=== PATIENT | female | born 1970 | race Caucasian/White ===

== ENCOUNTER 2023-03-22 11:48 | Outpatient (OUT) | payer BC, SELFPAY ==
--- NOTE | 2023-03-22 | MM_ITS ---
Patient: MONET ORTEGA Exam Date: 03/22/2023 : 1970 Gender:F Ordering : TONI Shandrakathya Romero [employer] Admission #: [id number] Family : Order #: [id number] CLICK HERE TO VIEW EXAM RADIOLOGY REPORT PROCEDURE: MM TOMOSYNTHESIS SCREENING BI COMPARISON: MG MAMM SCREEN 3D [place] CAD, 07/20/2021. MG MAMM RT DIAG FU, 08/16/2021. INDICATIONS: Z12.31 Calculator Name NCI Breast Cancer Risk Assessment Tool 5 Year Breast Cancer Risk 0.90% Lifetime Breast Cancer Risk 8.00% Personal Breast Cancer No Personal Ovarian Cancer No Treatments None Family Cancers Mother with cervical cancer at age 50; Daughter with cervical cancer at age 24; Daughter with cervical cancer at age 27. LOCATION: The [facility] BREAST COMPOSITION: Scattered areas fibroglandular density. FINDINGS: DIAGNOSTIC CATEGORY 2--BENIGN FINDING. NO CHANGE FROM COMPARISON. Scattered benign-appearing nodules are present. Scattered benign-appearing calcifications are present. Scattered benign-appearing lymph nodes are present. RIGHT BREAST: No significant suspicious finding. LEFT BREAST: No significant suspicious finding. RECOMMENDATIONS: ROUTINE MAMMOGRAM AND CLINICAL EVALUATION IN 12 MONTHS. PLEASE NOTE: A NORMAL MAMMOGRAM DOES NOT EXCLUDE THE POSSIBILITY OF BREAST CANCER. A CLINICALLY SUSPICIOUS PALPABLE LUMP SHOULD BE BIOPSIED. Dictated by: Diego Mcdonald MD on 03/23/2023 at 08:00 Approved by: Diego Mcdonald MD on 03/23/2023 at 08:01
[2023-03-22 12:53] LABS: Cholesterol 183 mg/dL (<=200); HDL Cholesterol 60 mg/dL (40-60); LDL Cholesterol Calculated 101.8 mg/dL; Triglycerides 106 mg/dL (<=150); VLDL CHOLESTEROL 21.2 mg/dL
== END 2023-03-22 11:49 | disposition home or self-care (01) ==
LOC: MAMMO 11:48
PROVIDERS: PCP Nurse Practitioner; Visit Provider Nurse Practitioner
DX: Z12.31 Encounter for screening mammogram for malignant neoplasm of breast (principal); Z80.49 Family history of malignant neoplasm of other genital organs
CPT/HCPCS: 36415; 77063; 77067; 80061

== ENCOUNTER 2023-03-22 11:52 | Outpatient (OUT) | payer BC, SELFPAY ==
[2023-03-22 12:33] LABS: Basophils Absolute Auto 0.1 10^3/uL (0.0-0.1); Basophils Percent Auto 0.7 % (0.2-2.0); Eosinophils Absolute Auto 0.2 10^3/uL (0.0-0.7); Eosinophils Percent Auto 3.1 % (0.9-7.0); Hematocrit 37.6 % (36.0-48.0); Hemoglobin 12.3 g/dL (12.0-16.0); Immature Granulocytes Abs Auto 0.03 10^3/uL (0.00-0.03); Immature Granulocytes Pct Auto 0.4 % (0.0-0.5); Lymphocytes Absolute Auto 2.1 10^3/uL (1.2-3.8); Lymphocytes Percent Auto 28.3 % (20.5-60.0); Mean Corpuscular HGB Conc 32.7 g/dL (29.9-35.2); Mean Corpuscular Hemoglobin 29.1 pg (26.7-34.0); Mean Corpuscular Volume 89.1 fL (81.0-99.0); Monocytes Absolute Auto 0.6 10^3/uL (0.3-0.8); Monocytes Percent Auto 8.4 % (1.7-12.0); Neutrophils Absolute Auto 4.4 10^3/uL (1.4-6.5); Neutrophils Percent Auto 59.1 % (43.0-75.0); Platelet Count 351 10^3/uL (150-450); Red Blood Count 4.22 10^6/uL (4.20-5.40); Red Cell Distribution Width 14.5 % (11.0-15.0); White Blood Count 7.4 10^3/uL (4.0-11.0)
[2023-03-22 12:51] LABS: Alanine Aminotransferase 22 U/L (14-59); Albumin Globulin Ratio 0.9; Albumin Level 3.5 g/dL (3.4-5.0); Alkaline Phosphatase 92 U/L (46-116); Anion Gap 14.4; Aspartate Amino Transferase 17 U/L (15-37); Bilirubin Total 0.3 mg/dL (0.2-1.0); Carbon Dioxide 27.2 mmol/L (21.0-32.0); Chloride 104 mmol/L (98-107); Estimated GFR (African America >60 (>=60); Estimated GFR (Non-African Ame >60 (>=60); Globulin 3.9 g/dL; Glucose 88 mg/dL (74-106); Potassium 3.6 mmol/L (3.5-5.1); Sodium 142 mmol/L (136-145); Total Protein 7.4 g/dL (6.4-8.2)
[2023-03-22 12:56] LABS: Erythrocyte Sedimentation Rate 59 mm/hr (<=30)
== END 2023-03-22 11:53 | disposition home or self-care (01) ==
LOC: LAB 11:53
PROVIDERS: PCP Nurse Practitioner
DX: M15.0 Primary generalized (osteo)arthritis (principal); M05.79 Rheumatoid arthritis with rheumatoid factor of multiple 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; Z79.899 Other long term (current) drug therapy
CPT/HCPCS: 36415; 80053; 85025; 85652

== ENCOUNTER 2023-03-22 13:16 | Outpatient (OUT) | payer BC, SELFPAY ==
--- NOTE | 2023-03-22 | CT_ITS ---
The [address] [address] Patient Name: MONET ORTEGA MRN: [id number] date: 1970 Sex: F Assigned Patient Location: CT Current Patient Location: [facility] Accession/Order Number: [id number] Exam Date: 03/22/2023 13:58 Report Date: 03/22/2023 21:05 At the request of: ANGELA ADAMS Procedure: CT chest wo con EXAM: CT scan of the chest without contrast. Dose reduction technique used: Automated exposure control and/or adjustment of the mA and/or kV according to patient size and/or use of iterative reconstruction technique. REASON FOR EXAM: R91.8, cough and dyspnea COMPARISON: CT scan dated 02/25/2022 FINDINGS: No acute airspace opacities. No pneumothorax. No pleural effusion. No acute fractures. No concerning pulmonary nodules. No definite lymphadenopathy in the chest. Small pericardial effusion. Multiple small nodules along the right fissures compatible with pleural lymph nodes. Remainder unremarkable. CT/CT chest wo con IMPRESSION: No acute abnormalities in chest. Electronically authenticated by: IAIN MAYA Date: 03/22/2023 21:05
== END 2023-03-22 13:17 | disposition home or self-care (01) ==
LOC: CT 13:16
PROVIDERS: PCP Nurse Practitioner; Visit Provider Internal Medicine
DX: Z12.31 Encounter for screening mammogram for malignant neoplasm of breast (principal); Z80.49 Family history of malignant neoplasm of other genital organs; M15.0 Primary generalized (osteo)arthritis; Z79.899 Other long term (current) drug therapy; M05.79 Rheumatoid arthritis with rheumatoid factor of multiple 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; R91.8 Other nonspecific abnormal finding of lung field
CPT/HCPCS: 36415; 71250; 77063; 77067; 80053; 80061; 85025; 85652

== ENCOUNTER 2023-08-23 06:32 | Outpatient (OUT) | payer BC, SELFPAY ==
[2023-08-23 06:57] LABS: Basophils Percent Auto 0.5 % (0.2-2.0); Eosinophils Absolute Auto 0.2 10^3/uL (0.0-0.7); Eosinophils Percent Auto 1.8 % (0.9-7.0); Hematocrit 37.7 % (36.0-48.0); Hemoglobin 12.1 g/dL (12.0-16.0); Immature Granulocytes Abs Auto 0.01 10^3/uL (0.00-0.03); Immature Granulocytes Pct Auto 0.1 % (0.0-0.5); Lymphocytes Absolute Auto 2.4 10^3/uL (1.2-3.8); Lymphocytes Percent Auto 27.7 % (20.5-60.0); Mean Corpuscular HGB Conc 32.1 g/dL (29.9-35.2); Mean Corpuscular Hemoglobin 28.3 pg (26.7-34.0); Mean Corpuscular Volume 88.1 fL (81.0-99.0); Mean Platelet Volume 8.8 fL (9.5-13.5); Monocytes Absolute Auto 0.7 10^3/uL (0.3-0.8); Monocytes Percent Auto 7.8 % (1.7-12.0); Neutrophils Absolute Auto 5.4 10^3/uL (1.4-6.5); Neutrophils Percent Auto 62.1 % (43.0-75.0); Platelet Count 448 10^3/uL (150-450); Red Blood Count 4.28 10^6/uL (4.20-5.40); Red Cell Distribution Width 14.2 % (11.0-15.0); White Blood Count 8.8 10^3/uL (4.0-11.0)
[2023-08-23 07:13] LABS: Erythrocyte Sedimentation Rate 78 mm/hr (<=30)
[2023-08-23 07:14] LABS: Alanine Aminotransferase 56 U/L (14-59); Albumin Globulin Ratio 0.9; Albumin Level 3.7 g/dL (3.4-5.0); Alkaline Phosphatase 95 U/L (46-116); Anion Gap 12.1; Aspartate Amino Transferase 25 U/L (15-37); BUN Creatinine Ratio 15.4; Bilirubin Total 0.3 mg/dL (0.2-1.0); Chloride 102 mmol/L (98-107); Estimated GFR (African America >60 (>=60); Estimated GFR (Non-African Ame >60 (>=60); Globulin 4.3 g/dL; Glucose 91 mg/dL (74-106); Potassium 3.1 mmol/L (3.5-5.1); Sodium 140 mmol/L (136-145)
== END 2023-08-23 06:33 | disposition home or self-care (01) ==
LOC: LAB 06:33
PROVIDERS: PCP Nurse Practitioner; Visit Provider Internal Medicine Rheumatology
DX: M05.79 Rheumatoid arthritis with rheumatoid factor of multiple 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 (principal); M15.0 Primary generalized (osteo)arthritis; Z79.899 Other long term (current) drug therapy
CPT/HCPCS: 36415; 80053; 85025; 85652

== ENCOUNTER 2024-02-02 21:24 | Emergency (ER) | payer BC, SELFPAY ==
[2024-02-02 21:29] VITALS: BP 121/83; PULSE 92; TEMP 36.9; O2SAT 99; BMI 32.5
--- OUTSIDE RECORDS SUMMARY | 2024-02-02 21:29 | XMS_ITS | CCD ---
Author Organization [facility] Care Team Providers Care Leaf Tinner Name Role Phone INGRIS ROMEROA J Primary Care Physician Cecy Chiang Unavailable AICHHOLZ, HOLTER TECHNICIAN SHANDRA Admitting Unavailable AICHHOLZ, HOLTER TECHNICIAN SHANDRA Attending Unavailable AICHHOLZ, HOLTER TECHNICIAN SHANDRA Primary Care Unavailable DR WEST OBANDO V Consulting Unavailable AICHHOLZ, HOLTER TECHNICIAN SHANDRA Consulting Unavailable MISC, DR IBARRA Admitting Unavailable MISC, DR IBARRA Attending Unavailable AICHHOLZ, HOLTER TECHNICIAN SHANDRA Primary Care Unavailable MISC, DR IBARRA Consulting Unavailable MISC, DR IBARRA Admitting Unavailable MISC, DR IBARRA Attending Unavailable AICHHOLZ, HOLTER TECHNICIAN SHANDRA Primary Care Unavailable AICHHOLZ, HOLTER TECHNICIAN SHANDRA Consulting Unavailable MISC, DR IBARRA Consulting Unavailable ZIEBRADHA, DR TODD Tai Consulting Unavailable AICHHOLZ, HOLTER TECHNICIAN SHANDRA Admitting Unavailable AICHHOLZ, HOLTER TECHNICIAN SHANDRA Attending Unavailable AICHHOLZ, HOLTER TECHNICIAN SHANDRA Primary Care Unavailable SAMSA ., ANGELA Admitting Unavailable SAMSA ., ANGELA Attending Unavailable AICHHOLZ, HOLTER TECHNICIAN SHANDRA Primary Care Unavailable MARIA ISABELEBDR TODD GARCIA Consulting Unavailable SAMSA ., ANGELA Consulting Unavailable AICHHOLZ, HOLTER TECHNICIAN SHANDRA Admitting Unavailable AICHHOLZ, HOLTER TECHNICIAN SHANDRA Attending Unavailable AICHHOLZ, HOLTER TECHNICIAN SHANDRA Primary Care Unavailable AICHHOLZ, HOLTER TECHNICIAN SHANDRA Consulting Unavailable AICHHOLZ, HOLTER TECHNICIAN SHANDRA Admitting Unavailable AICHHOLZ, HOLTER TECHNICIAN SHANDRA Attending Unavailable AICHHOLZ, HOLTER TECHNICIAN SHANDRA Primary Care Unavailable AICHHOLZ, HOLTER TECHNICIAN SHANDRA Consulting Unavailable AICHHOLZ, HOLTER TECHNICIAN SHANDRA Admitting Unavailable AICHHOLZ, HOLTER TECHNICIAN SHANDRA Attending Unavailable AICHHOLZ, HOLTER TECHNICIAN SHANDRA Primary Care Unavailable DR WEST OBANDO V Consulting Unavailable AICHHOLZ, HOLTER TECHNICIAN SHANDRA Consulting Unavailable Aichdebiz, Shandra J Primary Care Provider MD Cecil Taylor Attending Provider [phone] Kendra Woodall Admitting Unavailable Shandra Romero Primary Care Unavailable Kendra Woodall Attending Unavailable Cecil Taylor Attending Unavailable Cecil Taylor Admitting Unavailable Shandra Romero Primary Care Unavailable SHANDRA ROMERO Attending Unavailable SHANDRA ROMERO Attending Unavailable Medications Current Medications Medication Drug Class(es) Dates Sig (Normalized) Sig (Original) Albuterol (2 sources) beta2-Adrenergic Agonist Start: 09-15-2021 albuterol Refills(s) 0 Start Date: 09/15/21 Status: Ordered atorvastatin (2 sources) HMG-CoA Reductase Inhibitor Start: 09-15-2021 atorvastatin Oral, Daily, Refills(s) 0 Start Date: 09/15/21 Status: Ordered cephalexin 500 mg oral capsule (2 sources) Cephalosporin Antibacterial Start: 09-15-2021 take 1 capsule by mouth once daily Keflex 500 mg Cap 500 mg = 1 cap(s), Oral, Daily, Start 1 day prior to procedure, # 2 cap(s), Refills(s) 0, Pharmacy: [facility]/pharmacy #[id number], 170, cm, 09/15/21 8:33:00 EDT, Height/Length Dosing, 93.9, kg, 09/15/21 8:33:00 EDT, Weight Dosing Start Date: 09/15/21 Status: Ordered Estradiol (2 sources) Estrogen Start: 09-15-2021 Estrace 0.1 mg/g Cream See Instructions, 42.5 gm, Refill(s) 3, Apply pea sized amount 3x a week for 4 weeks and 2x a week after, [facility]/pharmacy #[id number], 170, cm, 09/15/21 8:33:00 EDT, Height/Length Dosing, 93.9, kg, 09/15/21 8:33:00 EDT, Weight Dosing Start Date: 09/15/21 Status: Ordered Etodolac (3 sources) Nonsteroidal Anti-inflammatory Drug Start: 09-15-2021 etodolac Oral, Refills(s) 0 Start Date: 09/15/21 Status: Ordered Etodolac Active fexofenadine (2 sources) Histamine-1 Receptor Antagonist Start: 09-15-2021 Ashley Oral, Refills(s) 0 Start Date: 09/15/21 Status: Ordered fluticasone / vilanterol (1 source) Corticosteroid, beta2-Adrenergic Agonist Breo Ellipta Active folic acid 1 mg oral tablet (2 sources) Start: 09-15-2021 take 1 tablet by mouth once daily folic acid 1 mg Tab mg tab(s), Oral, Daily, Refills(s) 0 Start Date: 09/15/21 Status: Ordered Problems Active Problems Problem Classification Problem Date Documented Da te Episodic/Chronic Disorders of lipid metabolism (6 sources) Hyperlipidemia; Translations: [Hyperlipidemia, unspecified] Onset: 02-01-2022 09-15-2021 Chronic Genitourinary symptoms and ill-defined conditions (3 sources) Mixed incontinence; Translations: [Incontinence] Onset: 09-15-2021 Chronic Genitourinary symptoms and ill-defined conditions (2 sources) Microscopic hematuria; Translations: [Asymptomatic microscopic hematuria] Onset: 09-15-2021 Episodic Osteoarthritis (3 sources) Arthritis; Translations: [Primary generalized (osteo)arthritis] Onset: 06-15-2022 09-15-2021 Chronic Other screening for suspected conditions (not mental disorders or infectious disease) (8 sources) Other abnormal and inconclusive findings on diagnostic imaging of breast; Translations: [Encounter for screening, unspecified] Onset: 02-25-2022 Episodic Residual codes; unclassified (1 source) Family history of malignant neoplasm of genital structure; Translations: [Family history of malignant neoplasm of other genital organs] Onset: 09-15-2021 Episodic Residual codes; unclassified (2 sources) Family history of malignant neoplasm of cervix uteri 09-15-2021 Episodic Rheumatoid arthritis and related disease (4 sources) Rheumatoid arthritis with rheumatoid factor of multiple 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; Translations: [RA W/RH FACTOR MX SITE NO ORGAN/SYS] Onset: 06-07-2022 Chronic Substance-related disorders (3 sources) Nicotine dependence; Translations: [Nicotine dependence, unspecified, uncomplicated] Onset: 09-15-2021 Chronic Unclassified (2 sources) Asymptomatic microscopic hematuria 09-15-2021 Unclassified (1 source) Rheumatoid arthritis with rheumatoid factor of multiple 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; Translations: [Rheumatoid arthritis with rheumatoid factor of multiple 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] Onset: 12-06-2022 Past or Other Problems Problem Classification Problem Date Documented Da te Episodic/Chronic Immunizations and screening for infectious disease (1 source) Contact with and (suspected) exposure to other viral communicable diseases Onset: 04-14-2021 Resolved: 04-14-2021 Episodic Other lower respiratory disease (1 source) Other nonspecific abnormal finding of lung field; Translations: [OTH NONSPECIFIC ABN FIND LNG FIELD] Onset: 02-28-2022 Episodic Other lower respiratory disease (4 sources) Solitary pulmonary nodule; Translations: [SOLITARY PULMONARY NODULE] Onset: 09-06-2021 Episodic Other non-traumatic joint disorders (1 source) Pain in right hip; Translations: [PAIN IN RIGHT HIP] Onset: 02-28-2022 Episodic Other upper respiratory infections (1 source) Acute upper respiratory infection, unspecified Onset: 04-14-2021 Resolved: 04-14-2021 Episodic Results Test Name Value Interpretation Reference Range Facility Alanine aminotransferase [En zymatic activity/volume] in Serum or PlasmaOrdered By: Yayo Taylor on 12-06-2022 ALT [Catalytic activity/Vol] 12 U/L 7-52 [facility] Albumin [Mass/volume] in Ser um or Plasma by Bromocresol green (BCG) dye binding methoOrdered By: Yayo Taylor on 12-06-2022 Albumin BCG dye [Mass/Vol] 4.6 g/dL 3.5-5.7 [facility] Alkaline phosphatase [Enzyma tic activity/volume] in Serum or PlasmaOrdered By: Yayo Taylor on 12-06-2022 ALP [Catalytic activity/Vol] 79 U/L 34-104 [facility] Aspartate aminotransferase [ Enzymatic activity/volume] in Serum or PlasmaOrdered By: Yayo Taylor on 12-06-2022 AST [Catalytic activity/Vol] 15 U/L 13-39 [facility] Basophils Auto (Bld) [#/Vol] Ordered By: Yayo Taylor on 12-06-2022 Basophils (Bld) [#/Vol] 0.0 10*3/uL 0.0-0.2 [facility] Basophils/100 WBC Auto (Bld) Ordered By: Yayo Taylor on 12-06-2022 Basophils/100 WBC (Bld) 0.6 % . [facility] Bilirubin.total [Mass/volume ] in Serum or PlasmaOrdered By: Yayo Taylor on 12-06-2022 Bilirubin [Mass/Vol] 0.3 mg/dL 0.3-1.0 [facility] Calcium [Mass/volume] in Ser um or PlasmaOrdered By: Yayo Taylor on 12-06-2022 Calcium [Mass/Vol] 9.6 mg/dL 8.6-10.3 [facility] Carbon dioxide, total [Moles /volume] in Serum or PlasmaOrdered By: Yayo Taylor on 12-06-2022 CO2 [Moles/Vol] 29.0 mmol/L 21.0-31.0 [facility] Chloride [Moles/volume] in S dot or PlasmaOrdered By: Yayo Taylor on 12-06-2022 Chloride [Moles/Vol] 105 mmol/L 98-107 [facility] Complete Blood Count Auto Di ffon 12-06-2022 Basophils (Bld) [#/Vol] 0.0 10*3/uL Normal 0.0-0.2 [facility] Comment on above: Performed By: #### C BC, CMP, ESR #### [facility] [address] Basophils/100 WBC (Bld) 0.6 % Normal . [facility] Comment on above: Performed By: #### C BC, CMP, ESR #### [facility] [address] [place] [id number] [place] Eosinophils (Bld) [#/Vol] 0.2 10*3/uL Normal 0.0-0.45 [facility] Comment on above: Performed By: #### C BC, CMP, ESR #### [facility] [address] [place] [id number] [place] Eosinophils/100 WBC (Bld) 2.7 % Normal . [facility] Comment on above: Performed By: #### C BC, CMP, ESR #### [facility] [address] [place] [address] [place] Erythrocyte distribution width (RBC) [Ratio] 14.2 % Normal 11.9-15.3 [facility] Comment on above: Performed By: #### C BC, CMP, ESR #### [address] Hematocrit (Bld) [Volume fraction] 38.4 % Normal 34.0-46.4 [facility] Comment on above: Performed By: #### C BC, CMP, ESR #### [address] Hemoglobin (Bld) [Mass/Vol] 12.7 g/dL Normal 11.8-15.4 [facility] Comment on above: Performed By: #### C BC, CMP, ESR #### [address] Lymphocytes (Bld) [#/Vol] 2.4 10*3/uL Normal 1.00-4.8 [facility] Comment on above: Performed By: #### C BC, CMP, ESR #### [address] Lymphocytes/100 WBC (Bld) 32.4 % Normal . [facility] Comment on above: Performed By: #### C BC, CMP, ESR #### [address] MCH (RBC) [Entitic mass] 28.5 pg Normal 24.7-34.3 [facility] Comment on above: Performed By: #### C BC, CMP, ESR #### [address] MCV (RBC) [Entitic vol] 86.3 fL Normal 80-100 [facility] Comment on above: Performed By: #### C BC, CMP, ESR #### [address] Mean Corpuscular HGB Conc 33.0 g/dL Normal 32.0-35.0 [facility] Comment on above: Performed By: #### C BC, CMP, ESR #### [address] Monocytes (Bld) [#/Vol] 0.5 10*3/uL Normal 0.0-0.8 [facility] Comment on above: Performed By: #### C BC, CMP, ESR #### [facility] [address] [place] [address] [place] Monocytes/100 WBC (Bld) 6.3 % Normal . [facility] Comment on above: Performed By: #### C BC, CMP, ESR #### [facility] [address] Neutrophils (Bld) [#/Vol] 4.3 10*3/uL Normal 1.8-7.7 [facility] Comment on above: Performed By: #### C BC, CMP, ESR #### [facility] [address] Neutrophils/100 WBC (Bld) 58.0 % Normal . [facility] Comment on above: Performed By: #### C BC, CMP, ESR #### [facility] [address] NRBC% 0.0 /100{WBC} Normal 0-0.5 [facility] Comment on above: Performed By: #### C BC, CMP, ESR #### [facility] [address] Platelet mean volume (Bld) [Entitic vol] 7.6 fL Normal 6.3-10.7 [facility] Comment on above: Performed By: #### C BC, CMP, ESR #### [facility] [address] [place] [address] [place] Platelets (Bld) [#/Vol] 368 10*3/uL Normal 150-450 [facility] Comment on above: Performed By: #### C BC, CMP, ESR #### [facility] [address] [place] [address] [place] RBC (Bld) [#/Vol] 4.45 10*6/uL Normal 3.60-5.00 [facility] Comment on above: Performed By: #### C BC, CMP, ESR #### [facility] [address] WBC (Bld) [#/Vol] 7.4 10*3/uL Normal 3.8-11.6 [facility] Comment on above: Performed By: #### C BC, CMP, ESR #### [address] Comprehensive Metabolic Pane nico 12-06-2022 Albumin [Mass/Vol] 4.6 g/dL Normal 3.5-5.7 [facility] Comment on above: Performed By: #### C BC, CMP, ESR #### [facility] [address] Albumin/Globulin [Mass ratio] 1.9 {ratio} Normal [facility] Comment on above: Performed By: #### C BC, CMP, ESR #### [address] ALP [Catalytic activity/Vol] 79 U/L Normal 34-104 [facility] Comment on above: Result Comment: PERF ORMED BY: [place] [address] PATHOLOGIST [employer]ASS PROCESSING WORKER FELICIANO PIERCE M.D. Performed By: #### C BC, CMP, ESR #### [address] ALT [Catalytic activity/Vol] 12 U/L Normal 7-52 [facility] Comment on above: Performed By: #### C BC, CMP, ESR #### [address] Anion gap [Moles/Vol] 10.1 mmol/L Normal 6.0-15.0 [facility] Comment on above: Performed By: #### C BC, CMP, ESR #### [address] AST [Catalytic activity/Vol] 15 U/L Normal 13-39 [facility] Comment on above: Performed By: #### C BC, CMP, ESR #### [facility] [address] Bilirubin [Mass/Vol] 0.3 mg/dL Normal 0.3-1.0 [facility] Comment on above: Performed By: #### C SANTINO GALLAGHER, ESR #### [facility] [address] Calcium [Mass/Vol] 9.6 mg/dL Normal 8.6-10.3 [facility] Comment on above: Performed By: #### C ELLIOTT CMP, ESR #### [facility] [address] Chloride [Moles/Vol] 105 mmol/L Normal 98-107 [facility] Comment on above: Performed By: #### C ELLIOTT CMP, ESR #### [facility] [address] CO2 [Moles/Vol] 29.0 mmol/L Normal 21.0-31.0 [facility] Comment on above: Performed By: #### C ELLIOTT CMP, ESR #### [facility] [address] Creatinine [Mass/Vol] 0.89 mg/dL Normal 0.60-1.20 [facility] Comment on above: Performed By: #### C SANTINO GALLAGHER, ESR #### [facility] [address] [place] [address] [place] GFR/1.73 sq M.predicted MDRD (S/P/Bld) [Vol rate/Area] mL/min/{1.73_m2} [facility] Comment on above: Performed By: #### C ELLIOTT CMP, ESR #### [facility] [address] [place] [address] [place] Globulin (S) [Mass/Vol] 2.4 g/dL Normal [facility] Comment on above: Performed By: #### C ELLIOTT CMP, ESR #### [facility] [address] [place] [address] [place] Glucose [Mass/Vol] 83 mg/dL Normal 70-100 [facility] Comment on above: Result Comment: [facility] Glucose Reference Range is dependent on time and content of last meal. Glucose of more than 200 mg/dL in a nonstressed, ambulatory subject supports the diagnosis of Diabetes Mellitus. ADA recommended reference range Performed By: #### C BC, CMP, ESR #### [facility] [address] Potassium [Moles/Vol] 4.1 mmol/L Normal 3.5-5.1 [facility] Comment on above: Performed By: #### C BC, CMP, ESR #### [facility] [address] Protein [Mass/Vol] 7.0 g/dL Normal 6.4-8.9 [facility] Comment on above: Performed By: #### C BC, CMP, ESR #### [facility] [address] Sodium [Moles/Vol] 140 mmol/L Normal 136-145 [facility] Comment on above: Performed By: #### C BC, CMP, ESR #### [facility] [address] [place] [address] [place] Urea nitrogen [Mass/Vol] 15 mg/dL Normal 7-25 [facility] Comment on above: Performed By: #### C BC, CMP, ESR #### [facility] [address] Creatinine [Mass/volume] in Serum or PlasmaOrdered By: Yayo Taylor on 12-06-2022 Creatinine [Mass/Vol] 0.89 mg/dL 0.60-1.20 [facility] Eosinophils Auto (Bld) [#/Vo l]Ordered By: Yayo Taylor on 12-06-2022 Eosinophils (Bld) [#/Vol] 0.2 10*3/uL 0.0-0.45 [facility] Eosinophils/100 WBC Auto (Bl d)Ordered By: Yayo Taylor on 12-06-2022 Eosinophils/100 WBC (Bld) 2.7 % . [facility] Erythrocyte Sedimentation Ra cristela 12-06-2022 ESR (Bld) [Velocity] 27 mm/h Normal 0-29 [facility] Comment on above: Result Comment: PERF ORMED BY: [facility] [address] [place] [address] PATHOLOGIST [employer] PROCESSING WORKER FELICIANO PIERCE M.D. Performed By: #### C BC, CMP, ESR #### [facility] [address] Erythrocyte distribution wid th Auto (RBC) [Ratio]Ordered By: Yayo Taylor on 12-06-2022 Erythrocyte distribution width (RBC) [Ratio] 14.2 % 11.9-15.3 [facility] Erythrocyte sedimentation ra te by Photometric methodOrdered By: Yayo Taylor on 12-06-2022 ESR Photometric method (Bld) [Velocity] 27 mm/hr 0-29 [facility] Globulin Calc (S) [Mass/Vol] Ordered By: Yayo Taylor on 12-06-2022 Globulin (S) [Mass/Vol] 2.4 g/dL [facility] Glucose [Mass/volume] in Ser um or PlasmaOrdered By: Yayo Taylor on 12-06-2022 Glucose [Mass/Vol] 83 mg/dL 70-100 [facility] Comment on above: ADA recommended refe rence rangeRandom Glucose Reference Range is dependent on time and content of last meal. Glucose of more than 200 mg/dL in a nonstressed, ambulatory subject supports the diagnosis of Diabetes Mellitus. Hematocrit Auto (Bld) [Volum e fraction]Ordered By: Yayo Taylor on 12-06-2022 Hematocrit (Bld) [Volume fraction] 38.4 % 34.0-46.4 [facility] Hemoglobin [Mass/volume] in BloodOrdered By: Yayo Taylor on 12-06-2022 Hemoglobin (Bld) [Mass/Vol] 12.7 g/dL 11.8-15.4 [facility] Leukocytes [#/volume] correc jin for nucleated erythrocytes in Blood by Automated counOrdered By: Yayo Taylor on 12-06-2022 WBC corrected for nucl RBC Auto (Bld) [#/Vol] 7.4 10*3/uL 3.8-11.6 [facility] Lymphocytes Auto (Bld) [#/Vo l]Ordered By: Yayo Taylor on 12-06-2022 Lymphocytes (Bld) [#/Vol] 2.4 10*3/uL 1.00-4.8 [facility] Lymphocytes/100 WBC Auto (Bl d)Ordered By: Yayo Taylor on 12-06-2022 Lymphocytes/100 WBC (Bld) 32.4 % . [facility] MCH Auto (RBC) [Entitic mass ]Ordered By: Yayo Taylor on 12-06-2022 MCH (RBC) [Entitic mass] 28.5 pg 24.7-34.3 [facility] MCHC Auto (RBC) [Mass/Vol]Or dered By: Yayo Taylor on 12-06-2022 MCHC (RBC) [Mass/Vol] 33.0 g/dL 32.0-35.[address] [facility] MCV Auto (RBC) [Entitic vol] Ordered By: Yayo Taylor on 12-06-2022 MCV (RBC) [Entitic vol] 86.3 fL 80-100 [facility] Monocytes Auto (Bld) [#/Vol] Ordered By: Yayo Taylor on 12-06-2022 Monocytes (Bld) [#/Vol] 0.5 10*3/uL 0.0-0.8 [facility] Monocytes/100 WBC Auto (Bld) Ordered By: Yayo Taylor on 12-06-2022 Monocytes/100 WBC (Bld) 6.3 % . [facility] Neutrophils Auto (Bld) [#/Vo l]Ordered By: Yayo Taylor on 12-06-2022 Neutrophils (Bld) [#/Vol] 4.3 10*3/uL 1.8-7.7 [facility] Neutrophils/100 WBC Auto (Bl d)Ordered By: Yayo Taylor on 12-06-2022 Neutrophils/100 WBC (Bld) 58.0 % . [facility] No Panel InformationOrdered By: Yayo Taylor on 12-06-2022 Estimated GFR (CKD-EPI) > 60.0 mL/Min [facility] Creatinine Clearance (Chem N/A [facility] Nucleated erythrocytes [Pres ence] in Blood by Automated countOrdered By: Yayo Taylor on 12-06-2022 Nucleated RBC Auto Ql (Bld) 0.0 /100{WBC} 0-0.5 [facility] Platelet mean volume Auto (B ld) [Entitic vol]Ordered By: Yayo Taylor on 12-06-2022 Platelet mean volume (Bld) [Entitic vol] 7.6 fL 6.3-10.7 [facility] Platelets Auto (Bld) [#/Vol] Ordered By: Yayo Taylor on 12-06-2022 Platelets (Bld) [#/Vol] 368 10*3/uL 150-450 [facility] Potassium [Moles/volume] in Serum or PlasmaOrdered By: Yayo Taylor on 12-06-2022 Potassium [Moles/Vol] 4.1 mmol/L 3.5-5.1 [facility] Protein [Mass/volume] in Ser um or PlasmaOrdered By: Yayo Taylor on 12-06-2022 Protein [Mass/Vol] 7.0 g/dL 6.4-8.9 [facility] RBC Auto (Bld) [#/Vol]Ordere d By: Yayo Taylor on 12-06-2022 RBC (Bld) [#/Vol] 4.45 10*6/uL 3.60-5.00 [facility] Serum or plasma albumin/glob ulin mass ratioOrdered By: Yayo Taylor on 12-06-2022 Albumin/Globulin [Mass ratio] 1.9 {ratio} [facility] Serum or plasma anion gap de terminationOrdered By: Yayo Taylor on 12-06-2022 Anion gap [Moles/Vol] 10.1 mmol/L 6.0-15.0 [facility] Sodium [Moles/volume] in Ser um or PlasmaOrdered By: Yayo Taylor on 12-06-2022 Sodium [Moles/Vol] 140 mmol/L 136-145 [facility] Urea nitrogen [Mass/volume] in Serum or PlasmaOrdered By: Yayo Taylor on 12-06-2022 Urea nitrogen [Mass/Vol] 15 mg/dL 7-25 [facility] WBC Auto (Bld) [#/Vol]Ordere d By: Yayo Taylor on 12-06-2022 WBC (Bld) [#/Vol] 7.4 10*3/uL 3.8-11.6 [facility] Alanine aminotransferase [En zymatic activity/volume] in Serum or PlasmaOrdered By: Yayo Taylor on 10-03-2022 ALT [Catalytic activity/Vol] 11 U/L 7-52 [facility] Albumin [Mass/volume] in Ser um or Plasma by Bromocresol green (BCG) dye binding methoOrdered By: Yayo Taylor on 10-03-2022 Albumin BCG dye [Mass/Vol] 4.1 g/dL 3.5-5.7 [facility] Alkaline phosphatase [Enzyma tic activity/volume] in Serum or PlasmaOrdered By: Yayo Taylor on 10-03-2022 ALP [Catalytic activity/Vol] 84 U/L 34-104 [facility] Aspartate aminotransferase [ Enzymatic activity/volume] in Serum or PlasmaOrdered By: Yayo Taylor on 10-03-2022 AST [Catalytic activity/Vol] 16 U/L 13-39 [facility] Basophils Auto (Bld) [#/Vol] Ordered By: Yayo Taylor on 10-03-2022 Basophils (Bld) [#/Vol] 0.1 10*3/uL 0.0-0.2 [facility] Basophils/100 WBC Auto (Bld) Ordered By: Yayo Taylor on 10-03-2022 Basophils/100 WBC (Bld) 0.9 % . [facility] Bilirubin.total [Mass/volume ] in Serum or PlasmaOrdered By: Yayo Taylor on 10-03-2022 Bilirubin [Mass/Vol] 0.3 mg/dL 0.3-1.0 [facility] Calcium [Mass/volume] in Ser um or PlasmaOrdered By: Yayo Taylor on 10-03-2022 Calcium [Mass/Vol] 8.5 mg/dL 8.6-10.3 [facility] Carbon dioxide, total [Moles /volume] in Serum or PlasmaOrdered By: Yayo Taylor on 10-03-2022 CO2 [Moles/Vol] 27.2 mmol/L 21.0-31.0 [facility] Chloride [Moles/volume] in S dot or PlasmaOrdered By: Yayo Taylor on 10-03-2022 Chloride [Moles/Vol] 106 mmol/L 98-107 [facility] Complete Blood Count Auto Di ffon 10-03-2022 Basophils (Bld) [#/Vol] 0.1 10*3/uL Normal 0.0-0.2 [facility] Comment on above: Performed By: #### C BC, CMP, ESR #### [facility] [address] Basophils/100 WBC (Bld) 0.9 % Normal . [facility] Comment on above: Performed By: #### C BC, CMP, ESR #### [facility] [address] Eosinophils (Bld) [#/Vol] 0.4 10*3/uL Normal 0.0-0.45 [facility] Comment on above: Performed By: #### C BC, CMP, ESR #### [facility] [address] Eosinophils/100 WBC (Bld) 5.0 % Normal . [facility] Comment on above: Performed By: #### C BC, CMP, ESR #### [facility] [address] Erythrocyte distribution width (RBC) [Ratio] 14.7 % Normal 11.9-15.3 [facility] Comment on above: Performed By: #### C BC, CMP, ESR #### [facility] [address] Hematocrit (Bld) [Volume fraction] 36.3 % Normal 34.0-46.4 [facility] Comment on above: Performed By: #### C BC, CMP, ESR #### [facility] [address] Hemoglobin (Bld) [Mass/Vol] 12.3 g/dL Normal 11.8-15.4 [facility] Comment on above: Performed By: #### C BC, CMP, ESR #### [place] [address] [place] Lymphocytes (Bld) [#/Vol] 2.1 10*3/uL Normal 1.00-4.8 [facility] Comment on above: Performed By: #### C BC, CMP, ESR #### [facility] [address] [place] [address] [place] Lymphocytes/100 WBC (Bld) 29.3 % Normal . [facility] Comment on above: Performed By: #### C BC, CMP, ESR #### [facility] [address] [place] [address] [place] MCH (RBC) [Entitic mass] 29.4 pg Normal 24.7-34.3 [facility] Comment on above: Performed By: #### C BC, CMP, ESR #### [address] MCV (RBC) [Entitic vol] 86.4 fL Normal 80-100 [facility] Comment on above: Performed By: #### C BC, CMP, ESR #### [address] Mean Corpuscular HGB Conc 34.0 g/dL Normal 32.0-35.0 [facility] Comment on above: Performed By: #### C BC, CMP, ESR #### [place] [address] [place] Monocytes (Bld) [#/Vol] 0.5 10*3/uL Normal 0.0-0.8 [facility] Comment on above: Performed By: #### C BC, CMP, ESR #### [place] [address] [place] Monocytes/100 WBC (Bld) 7.3 % Normal . [facility] Comment on above: Performed By: #### C BC, CMP, ESR #### [place] [address] [place] Neutrophils (Bld) [#/Vol] 4.1 10*3/uL Normal 1.8-7.7 [facility] Comment on above: Performed By: #### C BC, CMP, ESR #### [facility] [address] Neutrophils/100 WBC (Bld) 57.5 % Normal . [facility] Comment on above: Performed By: #### C BC, CMP, ESR #### [facility] [address] NRBC% 0.3 /100{WBC} Normal 0-0.5 [facility] Comment on above: Performed By: #### C BC, CMP, ESR #### [facility] [address] Platelet mean volume (Bld) [Entitic vol] 7.9 fL Normal 6.3-10.7 [facility] Comment on above: Performed By: #### C BC, CMP, ESR #### [facility] [address] Platelets (Bld) [#/Vol] 369 10*3/uL Normal 150-450 [facility] Comment on above: Performed By: #### C BC, CMP, ESR #### [facility] [address] RBC (Bld) [#/Vol] 4.20 10*6/uL Normal 3.60-5.00 [facility] Comment on above: Performed By: #### C BC, CMP, ESR #### [facility] [address] WBC (Bld) [#/Vol] 7.1 10*3/uL Normal 3.8-11.6 [facility] Comment on above: Performed By: #### C BC, CMP, ESR #### [facility] [address] Comprehensive Metabolic Pane nico 10-03-2022 Albumin [Mass/Vol] 4.1 g/dL Normal 3.5-5.7 [facility] Comment on above: Performed By: #### C BC, CMP, ESR #### [facility] [address] Albumin/Globulin [Mass ratio] 1.6 {ratio} Normal [facility] Comment on above: Performed By: #### C BC, CMP, ESR #### [facility] [address] ALP [Catalytic activity/Vol] 84 U/L Normal 34-104 [facility] Comment on above: Result Comment: PERF ORMED BY: [place] [address] PATHOLOGIST [employer] FELICIANO PIERCE M.D. Performed By: #### C BC, CMP, ESR #### [facility] [address] ALT [Catalytic activity/Vol] 11 U/L Normal 7-52 [facility] Comment on above: Performed By: #### C BC, CMP, ESR #### [facility] [address] Anion gap [Moles/Vol] 10.7 mmol/L Normal 6.0-15.0 [facility] Comment on above: Performed By: #### C BC, CMP, ESR #### [facility] [address] AST [Catalytic activity/Vol] 16 U/L Normal 13-39 [facility] Comment on above: Performed By: #### C BC, CMP, ESR #### [facility] [address] Bilirubin [Mass/Vol] 0.3 mg/dL Normal 0.3-1.0 [facility] Comment on above: Performed By: #### C BC, CMP, ESR #### [facility] [address] Calcium [Mass/Vol] 8.5 mg/dL Low 8.6-10.3 [facility] Comment on above: Performed By: #### C BC, CMP, ESR #### [facility] [address] [place] [address] [place] Chloride [Moles/Vol] 106 mmol/L Normal 98-107 [facility] Comment on above: Performed By: #### C BC, CMP, ESR #### [facility] [address] [place] [address] [place] CO2 [Moles/Vol] 27.2 mmol/L Normal 21.0-31.0 [facility] Comment on above: Performed By: #### C BC CMP, ESR #### [facility] [address] [place] [id number] [place] Creatinine [Mass/Vol] 0.88 mg/dL Normal 0.60-1.20 [facility] Comment on above: Performed By: #### C BC, CMP, ESR #### [facility] [address] [place] [address] [place] GFR/1.73 sq M.predicted MDRD (S/P/Bld) [Vol rate/Area] mL/min/{1.73_m2} [facility] Comment on above: Performed By: #### C ELLIOTT CMP, ESR #### [facility] [address] Globulin (S) [Mass/Vol] 2.6 g/dL Normal [facility] Comment on above: Performed By: #### C ELLIOTT CMP, ESR #### [facility] [address] Glucose [Mass/Vol] 98 mg/dL Normal 70-100 [facility] Comment on above: Result Comment: [facility] Glucose Reference Range is dependent on time and content of last meal. Glucose of more than 200 mg/dL in a nonstressed, ambulatory subject supports the diagnosis of Diabetes Mellitus. ADA recommended reference range Performed By: #### C BC, CMP, ESR #### [facility] [address] [place] [id number] [place] Potassium [Moles/Vol] 3.9 mmol/L Normal 3.5-5.1 [facility] Comment on above: Performed By: #### C BC, CMP, ESR #### [facility] [address] [place] [id number] [place] Protein [Mass/Vol] 6.7 g/dL Normal 6.4-8.9 [facility] Comment on above: Performed By: #### C BC, CMP, ESR #### [facility] [address] Sodium [Moles/Vol] 140 mmol/L Normal 136-145 [facility] Comment on above: Performed By: #### C BC, CMP, ESR #### [facility] [address] Urea nitrogen [Mass/Vol] 20 mg/dL Normal 7-25 [facility] Comment on above: Performed By: #### C BC, CMP, ESR #### [facility] [address] Creatinine [Mass/volume] in Serum or PlasmaOrdered By: Yayo Taylor on 10-03-2022 Creatinine [Mass/Vol] 0.88 mg/dL 0.60-1.20 [facility] Eosinophils Auto (Bld) [#/Vo l]Ordered By: Yayo Taylor on 10-03-2022 Eosinophils (Bld) [#/Vol] 0.4 10*3/uL 0.0-0.45 [facility] Eosinophils/100 WBC Auto (Bl d)Ordered By: Yayo Taylor on 10-03-2022 Eosinophils/100 WBC (Bld) 5.0 % . [facility] Erythrocyte Sedimentation Ra cristela 10-03-2022 ESR (Bld) [Velocity] 22 mm/h Normal 0-29 [facility] Comment on above: Result Comment: PERF ORMED BY: [place] [address] PATHOLOGIST [employer] WORKER FELICIANO PIERCE M.D. Performed By: #### C BC, CMP, ESR #### [facility] [address] Erythrocyte distribution wid th Auto (RBC) [Ratio]Ordered By: Yayo Taylor on 10-03-2022 Erythrocyte distribution width (RBC) [Ratio] 14.7 % 11.9-15.3 [facility] Erythrocyte sedimentation ra te by Photometric methodOrdered By: Yayo Taylor on 10-03-2022 ESR Photometric method (Bld) [Velocity] 22 mm/hr 0-29 [facility] Globulin Calc (S) [Mass/Vol] Ordered By: Yayo Taylor on 10-03-2022 Globulin (S) [Mass/Vol] 2.6 g/dL F [facility] Glucose [Mass/volume] in Ser um or PlasmaOrdered By: Yayo Taylor on 10-03-2022 Glucose [Mass/Vol] 98 mg/dL 70-100 [facility] Comment on above: ADA recommended refe rence rangeRandom Glucose Reference Range is dependent on time and content of last meal. Glucose of more than 200 mg/dL in a nonstressed, ambulatory subject supports the diagnosis of Diabetes Mellitus. Hematocrit Auto (Bld) [Volum e fraction]Ordered By: Yayo Taylor on 10-03-2022 Hematocrit (Bld) [Volume fraction] 36.3 % 34.0-46.4 [facility] Hemoglobin [Mass/volume] in BloodOrdered By: Yayo Taylor on 10-03-2022 Hemoglobin (Bld) [Mass/Vol] 12.3 g/dL 11.8-15.4 [facility] Leukocytes [#/volume] correc jin for nucleated erythrocytes in Blood by Automated counOrdered By: Yayo Taylor on 10-03-2022 WBC corrected for nucl RBC Auto (Bld) [#/Vol] 7.1 10*3/uL 3.8-11.6 [facility] Lymphocytes Auto (Bld) [#/Vo l]Ordered By: Yayo Taylor on 10-03-2022 Lymphocytes (Bld) [#/Vol] 2.1 10*3/uL 1.00-4.8 [facility] Lymphocytes/100 WBC Auto (Bl d)Ordered By: Yayo Taylor on 10-03-2022 Lymphocytes/100 WBC (Bld) 29.3 % . [facility] MCH Auto (RBC) [Entitic mass ]Ordered By: Yayo Taylor on 10-03-2022 MCH (RBC) [Entitic mass] 29.4 pg 24.7-34.3 [facility] MCHC Auto (RBC) [Mass/Vol]Or dered By: Yayo Taylor on 10-03-2022 MCHC (RBC) [Mass/Vol] 34.0 g/dL 32.0-35.0 [facility] MCV Auto (RBC) [Entitic vol] Ordered By: Yayo Taylor on 10-03-2022 MCV (RBC) [Entitic vol] 86.4 fL 80-100 [facility] Monocytes Auto (Bld) [#/Vol] Ordered By: Yayo Taylor on 10-03-2022 Monocytes (Bld) [#/Vol] 0.5 10*3/uL 0.0-0.8 [facility] Monocytes/100 WBC Auto (Bld) Ordered By: Yayo Taylor on 10-03-2022 Monocytes/100 WBC (Bld) 7.3 % . [facility] Neutrophils Auto (Bld) [#/Vo l]Ordered By: Yayo Taylor on 10-03-2022 Neutrophils (Bld) [#/Vol] 4.1 10*3/uL 1.8-7.7 [facility] Neutrophils/100 WBC Auto (Bl d)Ordered By: Yayo Taylor on 10-03-2022 Neutrophils/100 WBC (Bld) 57.5 % . [facility] No Panel InformationOrdered By: Yayo Taylor on 10-03-2022 Estimated GFR (CKD-EPI) > 60.0 mL/Min [facility] Creatinine Clearance (Chem N/A [facility] Nucleated erythrocytes [Pres ence] in Blood by Automated countOrdered By: Yayo Taylor on 10-03-2022 Nucleated RBC Auto Ql (Bld) 0.3 /100{WBC} 0-0.5 [facility] Platelet mean volume Auto (B ld) [Entitic vol]Ordered By: Yayo Taylor on 10-03-2022 Platelet mean volume (Bld) [Entitic vol] 7.9 fL 6.3-10.7 [facility] Platelets Auto (Bld) [#/Vol] Ordered By: Yayo Taylor on 10-03-2022 Platelets (Bld) [#/Vol] 369 10*3/uL 150-450 [facility] Potassium [Moles/volume] in Serum or PlasmaOrdered By: Yayo Taylor on 10-03-2022 Potassium [Moles/Vol] 3.9 mmol/L 3.5-5.1 [facility] Protein [Mass/volume] in Ser um or PlasmaOrdered By: Yayo Taylor on 10-03-2022 Protein [Mass/Vol] 6.7 g/dL 6.4-8.9 [facility] RBC Auto (Bld) [#/Vol]Ordere d By: Yayo Taylor on 10-03-2022 RBC (Bld) [#/Vol] 4.20 10*6/uL 3.60-5.00 [facility] Serum or plasma albumin/glob ulin mass ratioOrdered By: Yayo Taylor on 10-03-2022 Albumin/Globulin [Mass ratio] 1.6 {ratio} [facility] Serum or plasma anion gap de terminationOrdered By: Yayo Taylor on 10-03-2022 Anion gap [Moles/Vol] 10.7 mmol/L 6.0-15.0 [facility] Sodium [Moles/volume] in Ser um or PlasmaOrdered By: Yayo Taylor on 10-03-2022 Sodium [Moles/Vol] 140 mmol/L 136-145 [facility] Urea nitrogen [Mass/volume] in Serum or PlasmaOrdered By: Yayo Taylor on 10-03-2022 Urea nitrogen [Mass/Vol] 20 mg/dL 7-25 [facility] WBC Auto (Bld) [#/Vol]Ordere d By: Yayo Taylor on 10-03-2022 WBC (Bld) [#/Vol] 7.1 10*3/uL 3.8-11.6 [facility] US BREAST RIGHT LIMITEDon US BREAST RIGHT LIMITED Patient: MONET ORTEGA Exam Date: 08/18/2022 : 1970 Gender:F Ordering : TONI ROMERO CNP Admission #: [id number] Family : Order #: [id number] CLICK HERE TO VIEW EXAM RADIOLOGY REPORT PROCEDURE: ULTRASOUND BREAST RIGHT LIMITED COMPARISON: US BREAST RIGHT LIMITED, 08/16/2021. MG MAMM RT DIAG FU, 08/16/2021. INDICATIONS: Abnormal findings on diagnostic imaging of breast TECHNIQUE: Breast ultrasound was performed, with evaluation focusing only on specific areas of concern. FINDINGS: Ultrasound again demonstrates in the right breast 9 o'clock position, 1.5 cm from the nipple a round well-circumscribed hypoechogenic lesion smaller in size now measuring 6.4 x 5.9 x 5.5 mm RECOMMENDATIONS: Slight decrease in size of a hypoechogenic lesion, nonspecific. Given the stability over time, a benign lesion is favored The patient is due screening mammogram August 16, 2022 PLEASE NOTE: A NORMAL ULTRASOUND EXAMINATION DOES NOT EXCLUDE THE POSSIBILITY OF BREAST CANCER. A CLINICALLY SUSPICIOUS PALPABLE LUMP SHOULD BE BIOPSIED. Dictated by: West Obando MD on 08/18/2022 at 09:00 Approved by: West Obando MD on 08/18/2022 at 09:07 Normal [facility] CBC AUTO DIFFon 06-07-2022 BASO # 0.0 103/ul Normal 0.0-0.1 [facility] Comment on above: Performed By: #### A ST, ALT, LIPID #### [facility] [address] [place] [address] Dr. Luis Daniel Sin Basophils/100 WBC (Bld) 0.4 % Normal 0.2-2.0 [facility] Comment on above: Performed By: #### A ST, ALT, LIPID #### [facility] [address] [place] [address] Dr. Luis Daniel Sin EO # 0.2 103/ul Normal 0.0-0.7 [facility] Comment on above: Performed By: #### A ST, ALT, LIPID #### [facility] [address] [place] [address] Dr. Luis Daniel Sin Eosinophils/100 WBC (Bld) 2.3 % Normal 0.9-7.0 [facility] Comment on above: Performed By: #### A ST, ALT, LIPID #### [facility] [address] [place] [address] Dr. Luis Daniel Sin Erythrocyte distribution width (RBC) [Ratio] 13.7 % Normal 11.0-15.0 [facility] Comment on above: Performed By: #### A ST, ALT, LIPID #### [facility] [address] [place] [address] Dr. Luis Daniel Sin Hematocrit (Bld) [Volume fraction] 37.3 % Normal 36.0-48.0 [facility] Comment on above: Performed By: #### A ST, ALT, LIPID #### [facility] [address] [address] [address] Luis Daniel Sin Hemoglobin (Bld) [Mass/Vol] 12.3 g/dL Normal 12.0-16.0 [facility] Comment on above: Performed By: #### A ST, ALT, LIPID #### [facility] [address] [place] [address] Dr. Luis Daniel Sin IG # 0.02 10e3/ul Normal 0.00-0.03 [facility] Comment on above: Performed By: #### A ST, ALT, LIPID #### [facility] [address] [place] [address] Dr. Luis Daniel Sin IG % 0.2 % Normal 0.0-0.5 [facility] Comment on above: Performed By: #### A ST, ALT, LIPID #### [facility] [address] [place] [address] Dr. Luis Daniel Sin LYMPH # 2.9 103/ul Normal 1.2-3.8 [facility] Comment on above: Performed By: #### A ST, ALT, LIPID #### [facility] [address] [place] [address] Dr. Luis Daniel Sin Lymphocytes/100 WBC (Bld) 31.8 % Normal 20.5-60.0 [facility] Comment on above: Performed By: #### A ST, ALT, LIPID #### [facility] [address] [place] [address] Dr. Luis Daniel Sin MANUAL DIFF REQ NO Normal [facility] Comment on above: Performed By: #### A ST, ALT, LIPID #### [facility] [address] [place] [address] Dr. Luis Daniel Sin MCH (RBC) [Entitic mass] 28.1 pg Normal 26.7-34.0 [facility] Comment on above: Performed By: #### A ST, ALT, LIPID #### [facility] [address] [address] [address] Luis Daniel Sin MCHC (RBC) [Mass/Vol] 33.0 g/dL Normal 29.9-35.2 [facility] Comment on above: Performed By: #### A ST, ALT, LIPID #### [facility] [address] [address] [address] Luis Daniel Sin MCV (RBC) [Entitic vol] 85.2 fL Normal 81.0-99.0 [facility] Comment on above: Performed By: #### A ST, ALT, LIPID #### [facility] [address] [address] [address] Luis Daniel Sin MONO # 0.8 103/ul Normal 0.3-0.8 [facility] Comment on above: Performed By: #### A ST, ALT, LIPID #### [facility] [address] [place] [address] Dr. Luis Daniel Sin Monocytes/100 WBC (Bld) 8.4 % Normal 1.7-12.0 [facility] Comment on above: Performed By: #### A ST, ALT, LIPID #### [facility] [address] [address] [address] Luis Daniel Sin NEUT # 5.1 103/ul Normal 1.4-6.5 [facility] Comment on above: Performed By: #### A ST, ALT, LIPID #### [facility] [address] [address] [address] Luis Daniel Sin Neutrophils/100 WBC (Bld) 56.9 % Normal 43.0-75.0 [facility] Comment on above: Performed By: #### A ST, ALT, LIPID #### [facility] [address] [address] [address] Luis Daniel Sin Platelet mean volume (Bld) [Entitic vol] 9.0 fL Critically low 9.5-13.5 [facility] Comment on above: Performed By: #### A ST, ALT, LIPID #### [facility] [address] [address] [address] Luis Daniel Sin PLT 353 103/ul Normal 150-450 [facility] Comment on above: Performed By: #### A ST, ALT, LIPID #### [facility] [address] [address] [address] Luis Daniel Sin RBC 4.38 106/ul Normal 4.20-5.40 [facility] Comment on above: Performed By: #### A ST, ALT, LIPID #### [facility] [address] [address] [address] Luis Daniel Sin WBC 9.0 103/ul Normal 4.0-11.0 [facility] Comment on above: Performed By: #### A ST, ALT, LIPID #### [facility] [address] [address] [address] Lius Daniel Sin PROF 14(COMP METB)on 022 Albumin [Mass/Vol] 3.9 g/dL Normal 3.4-5.0 [facility] Comment on above: Performed By: #### C MP #### [facility] [address] [place] [address] Dr. Luis Daniel Sin Albumin/Globulin [Mass ratio] 1.0 {ratio} Normal [facility] Comment on above: Performed By: #### C MP #### [facility] [address] [place] [address] Dr. Luis Daniel Sin ALP [Catalytic activity/Vol] 94 U/L Normal 46-116 [facility] Comment on above: Performed By: #### C MP #### [facility] [address] [address] [address] Luis Daniel Sin ALT [Catalytic activity/Vol] 18 U/L Normal 14-59 [facility] Comment on above: Performed By: #### C MP #### [facility] [address] [address] [address] Luis Daniel Sin Anion gap [Moles/Vol] 12.2 mmol/L Normal [facility] Comment on above: Performed By: #### C MP #### [facility] [address] [place] [address] Dr. Luis Daniel Sin AST [Catalytic activity/Vol] 19 U/L Normal 15-37 [facility] Comment on above: Performed By: #### C MP #### [facility] [address] [address] [address] Luis Daniel Sin Bilirubin [Mass/Vol] 0.3 mg/dL Normal 0.2-1.0 [facility] Comment on above: Performed By: #### C MP #### [facility] [address] [address] [address] Luis Daniel Sin Calcium [Mass/Vol] 9.3 mg/dL Normal 8.5-10.1 [facility] Comment on above: Performed By: #### C MP #### [facility] [address] [address] [address] Luis Daniel Sin Chloride [Moles/Vol] 102 mmol/L Normal 98-107 [facility] Comment on above: Performed By: #### C MP #### [facility] [address] [address] [address] Luis Daniel Sin CO2 [Moles/Vol] 29.5 mmol/L Normal 21.0-32.0 [facility] Comment on above: Performed By: #### C MP #### [facility] [address] [address] [address] Luis Daniel Sin Creatinine [Mass/Vol] 0.93 mg/dL Normal 0.55-1.02 [facility] Comment on above: Performed By: #### C MP #### [facility] [address] [address] [address] Luis Daniel Sin EGFR-AF VIET[place]ESE >60 Normal >=60 [facility] Comment on above: Performed By: #### C MP #### [facility] [address] [address] [address] Luis Daniel Sin EGFR-NON AF VIET[place]ESE >60 Normal >=60 [facility] Comment on above: Performed By: #### C MP #### [facility] [address] [address] [address] Luis Daniel Sin Globulin (S) [Mass/Vol] 3.8 g/dL Normal T [facility] Comment on above: Performed By: #### C MP #### [facility] [address] [address] [address] Luis Daniel Sin Glucose [Mass/Vol] 100 mg/dL Normal 74-106 [facility] Comment on above: Performed By: #### C MP #### [facility] [address] [address] [address] Luis Daniel Sin Potassium [Moles/Vol] 3.7 mmol/L Normal 3.5-5.1 [facility] Comment on above: Performed By: #### C MP #### [facility] [address] [address] [address] Luis Daniel Sin Protein [Mass/Vol] 7.7 g/dL Normal 6.4-8.2 [facility] Comment on above: Performed By: #### C MP #### [facility] [address] [address] [address] Luis Daniel Sin Sodium [Moles/Vol] 140 mmol/L Normal 136-145 [facility] Comment on above: Performed By: #### C MP #### [facility] [address] [address] [address] Luis Daniel Sin Urea nitrogen [Mass/Vol] 18.0 mg/dL Normal 7.0-18.0 [facility] Comment on above: Performed By: #### C MP #### [facility] [address] [address] [address] Luis Daniel Sin Urea nitrogen/Creatinine [Mass ratio] 19.4 mg/mg Normal [facility] Comment on above: Performed By: #### C MP #### [facility] [address] [address] [address] Luis Daniel Sin [facility] 2021 SED RATE 54 mm/hr Critically high <=30 [facility] Comment on above: Performed By: #### A ST, ALT, LIPID #### [facility] [address] [address] [address] Luis Daniel Sin CBC AUTO DIFFon 02-25-2022 BASO # 0.1 103/ul Normal 0.0-0.1 [facility] Comment on above: Performed By: #### C BC #### [facility] [address] [place] [address] Dr. Luis Daniel Sin Basophils/100 WBC (Bld) 0.7 % Normal 0.2-2.0 [facility] Comment on above: Performed By: #### C BC #### [facility] [address] [place] [address] Dr. Luis Daniel Sin EO # 0.2 103/ul Normal 0.0-0.7 [facility] Comment on above: Performed By: #### C BC #### [facility] [address] [place] [address] Dr. Luis Daniel Sin Eosinophils/100 WBC (Bld) 2.5 % Normal 0.9-7.0 [facility] Comment on above: Performed By: #### C BC #### [facility] [address] [place] [address] Dr. Luis Daniel Sin Erythrocyte distribution width (RBC) [Ratio] 14.2 % Normal 11.0-15.0 [facility] Comment on above: Performed By: #### C BC #### [facility] [address] [place] [address] Dr. Luis Daniel Sin Hematocrit (Bld) [Volume fraction] 41.1 % Normal 36.0-48.0 [facility] Comment on above: Performed By: #### C BC #### [facility] [address] [place] [address] Dr. Luis Daniel Sin Hemoglobin (Bld) [Mass/Vol] 13.5 g/dL Normal 12.0-16.0 [facility] Comment on above: Performed By: #### C BC #### [facility] [address] [place] [address] Dr. Luis Daniel Sin IG # 0.03 10e3/ul Normal 0.00-0.03 [facility] Comment on above: Performed By: #### C BC #### [facility] [address] [place] [address] Dr. Luis Daniel Sin IG % 0.4 % Normal 0.0-0.5 [facility] Comment on above: Performed By: #### C BC #### [facility] [address] [address] [address] Luis Daniel Sin LYMPH # 2.2 103/ul Normal 1.2-3.8 [facility] Comment on above: Performed By: #### C BC #### [facility] [address] [address] [address] Luis Daniel Sin Lymphocytes/100 WBC (Bld) 26.0 % Normal 20.5-60.0 [facility] Comment on above: Performed By: #### C BC #### [facility] [address] [place] [address] Dr. Luis Dainel Sin MANUAL DIFF REQ NO Normal [facility] [place] Comment on above: Performed By: #### C BC #### [facility] [address] [place] [address] Dr. Luis Daniel Sin MCH (RBC) [Entitic mass] 28.6 pg Normal 26.7-34.0 [facility] Comment on above: Performed By: #### C BC #### [facility] [address] [place] [address] Dr. Luis Daniel Sin MCHC (RBC) [Mass/Vol] 32.8 g/dL Normal 29.9-35.2 [facility] Comment on above: Performed By: #### C BC #### [facility] [address] [place] [address] Dr. Luis Daniel Sin MCV (RBC) [Entitic vol] 87.1 fL Normal 81.0-99.0 [facility] Comment on above: Performed By: #### C BC #### [facility] [address] [place] [address] Dr. Luis Daniel Sin MONO # 0.6 103/ul Normal 0.3-0.8 [facility] Comment on above: Performed By: #### C BC #### [facility] [address] [place] [address] Dr. Luis Daniel Sin Monocytes/100 WBC (Bld) 6.8 % Normal 1.7-12.0 [facility] Comment on above: Performed By: #### C BC #### [facility] [address] [place] [address] Dr. Luis Daniel Sin NEUT # 5.3 103/ul Normal 1.4-6.5 [facility] Comment on above: Performed By: #### C BC #### [facility] [address] [place] [address] Dr. Luis Daniel Sin Neutrophils/100 WBC (Bld) 63.6 % Normal 43.0-75.0 [facility] Comment on above: Performed By: #### C BC #### [facility] [address] [place] [address] Dr. Luis Daniel Sin Platelet mean volume (Bld) [Entitic vol] 9.5 fL Normal 9.5-13.5 [facility] Comment on above: Performed By: #### C BC #### [facility] [address] [place] [address] Dr. Luis Daniel Sin PLT 364 103/ul Normal 150-450 [facility] Comment on above: Performed By: #### C BC #### [facility] [address] [place] [address] Dr. Luis Daniel Sin RBC 4.72 106/ul Normal 4.20-5.40 [facility] Comment on above: Performed By: #### C BC #### [facility] [address] [place] [address] Dr. Luis Daniel Sin WBC 8.3 103/ul Normal 4.0-11.0 [facility] Comment on above: Performed By: #### C BC #### [facility] [address] [place] [address] CHEST WO CONon 02-25-2022 CT CHEST WO CON EXAMINATION: CT CHEST WO CON HISTORY: Lung field abnormal ; follow-up lung nodules COMPARISON: CT chest 09/06/2021 TECHNIQUE: Axial, Coronal, and Sagittal images were created without the administration of IV contrast material. Dose reduction techniques were achieved by using automated exposure control and/or adjustment of mA and/or kV according to patient size and/or use of iterative reconstruction technique. FINDINGS: LUNGS: Stable appearance of a few tiny parenchymal and pleural-based nodule/scarring. No new or suspicious findings. PLEURA: No mass, effusion, or pneumothorax. VASCULATURE: No abnormality. JAYANT: No mass or adenopathy. MEDIASTINUM: Stable appearance of a few slightly prominent, but not pathologically enlarged lymph nodes. Small amount of thymic tissue within upper anterior mediastinum; stable. CARDIAC: Trace amount of pericardial fluid versus pericardial thickening, 3 mm; stable to minimally increased. AORTA: No aneurysm or dissection. CHEST WALL: No mass or axillary adenopathy. BONES: No bone lesion or fracture. LIMITED ABDOMEN: No suspicious findings. Limited images of the upper abdomen. OTHER: Negative. IMPRESSION: 1. Stable appearance of a few tiny, nonsuspicious pulmonary nodule/parenchymal scarring. No additional follow-up is recommended unless the patient is at increased risk for lung cancer; then consider follow-up imaging in one year. Electronically authenticated by: TODD JACOBS Date: 2022-02-25 18:07 Normal [facility] PROF 14(COMP METB)on 022 Albumin [Mass/Vol] 3.6 g/dL Normal 3.4-5.0 [facility] Comment on above: Performed By: #### C MP #### [facility] [address] [place] [address] Dr. Luis Daniel Sin Albumin/Globulin [Mass ratio] 0.9 {ratio} Normal [facility] Comment on above: Performed By: #### C MP #### [facility] [address] [place] [address] Dr. Luis Daniel Sin ALP [Catalytic activity/Vol] 113 U/L Normal 46-116 [facility] Comment on above: Performed By: #### C MP #### [facility] [address] [place] [address] Dr. Luis Daniel Sin ALT [Catalytic activity/Vol] 17 U/L Normal 14-59 [facility] Comment on above: Performed By: #### C MP #### [facility] [address] [place] [address] Dr. Luis Daniel Sin Anion gap [Moles/Vol] 9.7 mmol/L Normal [facility] Comment on above: Performed By: #### C MP #### [facility] [address] [place] [address] Dr. Luis Daniel Sin AST [Catalytic activity/Vol] 11 U/L Critically low 15-37 [facility] Comment on above: Performed By: #### C MP #### [facility] [address] [place] [address] Dr. Luis Daniel Sin Bilirubin [Mass/Vol] 0.3 mg/dL Normal 0.2-1.0 [facility] Comment on above: Performed By: #### C MP #### [facility] [address] [address] [address] Luis Daniel Sin Calcium [Mass/Vol] 8.9 mg/dL Normal 8.5-10.1 [facility] Comment on above: Performed By: #### C MP #### [facility] [address] [place] [address] Dr. Luis Daniel Sin Chloride [Moles/Vol] 104 mmol/L Normal 98-107 [facility] Comment on above: Performed By: #### C MP #### [facility] [address] [place] [address] Dr. Luis Daniel Sin CO2 [Moles/Vol] 26.9 mmol/L Normal 21.0-32.0 [facility] Comment on above: Performed By: #### C MP #### [facility] [address] [place] [address] Dr. Luis Daniel Sin Creatinine [Mass/Vol] 0.96 mg/dL Normal 0.55-1.02 [facility] Comment on above: Performed By: #### C MP #### [facility] [address] [place] [address] Dr. Luis Daniel Sin EGFR-AF VIETNAMESE >60 Normal >=60 [facility] Comment on above: Performed By: #### C MP #### [facility] [address] [place] [address] Dr. Luis Daniel Sin EGFR-NON AF VIETNAMESE >60 Normal >=60 [facility] Comment on above: Performed By: #### C MP #### [facility] [address] [place] [address] Dr. Luis Daniel Sin Globulin (S) [Mass/Vol] 4.0 g/dL Normal [facility] Comment on above: Performed By: #### C MP #### [facility] [address] [address] [address] Luis Daniel Sin Glucose [Mass/Vol] 99 mg/dL Normal 74-106 [facility] Comment on above: Performed By: #### C MP #### [facility] [address] [address] [address] Luis Daniel Sin Potassium [Moles/Vol] 3.6 mmol/L Normal 3.5-5.1 [facility] Comment on above: Performed By: #### C MP #### [facility] [address] [address] [address] Luis Daniel Sin Protein [Mass/Vol] 7.6 g/dL Normal 6.4-8.2 [facility] Comment on above: Performed By: #### C MP #### [facility] [address] [address] [address] Luis Daniel Sin Sodium [Moles/Vol] 137 mmol/L Normal 136-145 [facility] Comment on above: Performed By: #### C MP #### [facility] [address] [address] [address] Luis Daniel Sin Urea nitrogen [Mass/Vol] 12.0 mg/dL Normal 7.0-18.0 [facility] Comment on above: Performed By: #### C MP #### [facility] [address] [address] [address] Luis Daniel Sin Urea nitrogen/Creatinine [Mass ratio] 12.5 mg/mg Normal [facility] Comment on above: Performed By: #### C MP #### [facility] [address] [address] [address] Luis Daniel Sin SED RATE WESTERGRENon 2021 SED RATE 46 mm/hr Critically high <=20 [facility] [place] Comment on above: Performed By: #### A ST, ALT, LIPID #### [facility] [address] [address] [address] Luis Daniel Sin LIPID PROFILEon 02-01-2022 CHOL-HDL RATIO NORM SEE BELOW Normal [facility] Comment on above: Result Comment: 3.3 - 4.4 LOW RISK 4.4 - 7.1 AVERAGE RISK 7.1 - 11.0 MODERATE RISK >11.0 HIGH RISK Performed By: #### A ST, ALT, LIPID #### [facility] [address] [address] [address] Luis Daniel Sin Cholesterol [Mass/Vol] 250 mg/dL Critically high <=200 [facility] Comment on above: Performed By: #### A ST, ALT, LIPID #### [facility] [address] [address] [address] Luis Daniel Sin Cholesterol in HDL [Mass/Vol] 44 mg/dL Normal 40-60 [facility] Comment on above: Performed By: #### A ST, ALT, LIPID #### [facility] [address] [address] [address] Luis Daniel Sin Cholesterol in LDL [Mass/Vol] 162.0 mg/dL Normal [facility] Comment on above: Performed By: #### A ST, ALT, LIPID #### [facility] [address] [address] [address] Luis Daniel Sin Cholesterol.total/Inna sterol in HDL [Mass ratio] 5.7 {ratio} Normal [facility] Comment on above: Performed By: #### A ST, ALT, LIPID #### [facility] [address] [address] [address] Luis Daniel Sin HDL NORMAL > or = 60 mg/dl - LOW CARDIOVASCULAR RISK <40 mg/dl - HIGH CARDIOVASCULAR RISK Normal [facility] Comment on above: Performed By: #### A ST, ALT, LIPID #### [facility] [address] [address] [address] Luis Daniel Sin LDL CALC NORMAL SEE BELOW Normal [facility] Comment on above: Result Comment: <100 mg/dl OPTIMAL 100 - 129 mg/dl NEAR OR ABOVE OPTIMAL 130 - 159 mg/dl BORDERLINE HIGH 160 - 189 mg/dl HIGH >190 mg/dl VERY HIGH Performed By: #### A ST, ALT, LIPID #### [facility] [address] [address] [address] Luis Daniel Sin Triglyceride [Mass/Vol] 220 mg/dL Critically high <=150 [facility] Comment on above: Performed By: #### A ST, ALT, LIPID #### [facility] [address] [address] [address] Luis Daniel Sin VLDL CALC 44.0 mg/dL Normal [facility] Comment on above: Performed By: #### A ST, ALT, LIPID #### [facility] [address] [address] [address] Luis Daniel Sin SGOTon 02-01-2022 AST [Catalytic activity/Vol] 17 U/L Normal 15-37 [facility] Comment on above: Performed By: #### A ST, ALT, LIPID #### [facility] [address] [address] [address] [facility] ALT [Catalytic activity/Vol] 21 U/L Normal 14-59 [facility] Comment on above: Performed By: #### A ST, ALT, LIPID #### [facility] [address] [address] [address] Luis Daniel Sin Patient Correspondenceon Patient Correspondence [id number] 1DF3#1.00CD:127 Normal [facility] Provider Letteron 12-31-2021 Provider Letter December 31, 2021 [address] [place] [address] MONET ORTEGA N 1970 Dear Monet , This letter is to inform you the providers of [facility], [facility] will no longer be responsible for your routine medical care due to non compliance. Emergency care only will be provided for the thirty (30) days following this letter. During this time period we suggest that you find another physician for your medical needs. A listing of area physicians can be found on [facility]'s website at [email or web address] or you may contact your health plan. We will be glad to forward your records to your new physician as long as we receive a signed release of records form. Sincerely, Dr. Vickie Montiel MD [facility] [address] [place] [address], [place] [address] Normal [facility] LIPID PROFILEon 12-13-2021 CHOL-HDL RATIO NORM SEE BELOW Normal [facility] Comment on above: Result Comment: 3.3 - 4.4 LOW RISK 4.4 - 7.1 AVERAGE RISK 7.1 - 11.0 MODERATE RISK >11.0 HIGH RISK Performed By: #### A ST, ALT, LIPID #### [facility] [address] [place], [place] [address] Dr. Luis Daniel Sin Cholesterol [Mass/Vol] 233 mg/dL Critically high <=200 [facility] Comment on above: Performed By: #### A ST, ALT, LIPID #### [facility] [address] [id number] Luis Daniel Sin Cholesterol in HDL [Mass/Vol] 52 mg/dL Normal 40-60 [facility] Comment on above: Performed By: #### A ST, ALT, LIPID #### [facility] [address] [address] [address] Luis Daniel Sin Cholesterol in LDL [Mass/Vol] 142.6 mg/dL Normal [facility] Comment on above: Performed By: #### A ST, ALT, LIPID #### [facility] [address] [place], [place] [address] Dr. Luis Daniel Sin Cholesterol.total/Inna sterol in HDL [Mass ratio] 4.5 {ratio} Normal [facility] Comment on above: Performed By: #### A ST, ALT, LIPID #### [facility] [address] [id number] Luis Daniel Sin HDL NORMAL > or = 60 mg/dl - LOW CARDIOVASCULAR RISK <40 mg/dl - HIGH CARDIOVASCULAR RISK Normal [facility] Comment on above: Performed By: #### A ST, ALT, LIPID #### [facility] [address] [id number] Luis Daniel Sin LDL CALC NORMAL SEE BELOW Normal [facility] Comment on above: Result Comment: <100 mg/dl OPTIMAL 100 - 129 mg/dl NEAR OR ABOVE OPTIMAL 130 - 159 mg/dl BORDERLINE HIGH 160 - 189 mg/dl HIGH >190 mg/dl VERY HIGH Performed By: #### A ST, ALT, LIPID #### [facility] [address] [place] [address] Dr. Luis Daniel Sin Triglyceride [Mass/Vol] 192 mg/dL Critically high <=150 [facility] Comment on above: Performed By: #### A ST, ALT, LIPID #### [facility] [address] [address] [address] Luis Daniel Sin VLDL CALC 38.4 mg/dL Normal [facility] Comment on above: Performed By: #### A ST, ALT, LIPID #### [facility] [address] [place] [address] Dr. Luis Daniel Sin SGR[facility] 12-13-2021 AST [Catalytic activity/Vol] 12 U/L Critically low 15-37 [facility] Comment on above: Performed By: #### A ST, ALT, LIPID #### [facility] [address] [place] [address] Dr. Luis Daniel Sin [facility] 12-13-2021 ALT [Catalytic activity/Vol] 23 U/L Normal 14-59 [facility] Comment on above: Performed By: #### A ST, ALT, LIPID #### [facility] [address] [place] [address] Dr. Luis Daniel Sin Patient Correspondenceon Patient Correspondence [id number] 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 My office had you scheduled for a Cystoscopy but you did not show for your appointment. We have been trying to contact you via phone with no success. Please contact my office at your earliest convenience and we will gladly reschedule your appointment. I cannot be responsible for your urologic care if you do not follow up as recommended. Sincerely, Dr. Vickie Montiel MD [facility] [address] [place] [address] [facility] Provider Letteron 10-19-2021 Provider Letter October 19, 2021 [address] [place] [address] MONET ORTEGA 1970 Dear Jodi , During review of your medical record we noticed you missed your 09/27/21 Cystoscopy appointment. We have attempted to reach you on 09/28/21, 10/05/21, and 10/19/21 to reschedule your procedure with no success. Please call our office today to reschedule this appointment. Sincerely, Dr. Vickie Montiel MD [facility] [address] [place] [address] [facility] RAD - CT Reporton 09-21-2021 RAD - CT Report [id number] C54#1.00CD:127 [facility] Reminderson 09-21-2021 Reminders --- From: Suzan Collins MA To: EU - Prior Authorization; Sent: 09/15/2021 12:38:12 EDT Show up: 09/16/2021 07:00:00 EDT Subject: sending urine for UA Due Date/Time: 09/16/2021 12:00:00 EDT Reminder/Recall Urine sent to [facility] for UA Per last encounter: Patient denies visible blood, UA today shows large. UA done on 07/01/21 showed 2-5 RBC. -UA today will be sent for micro UA. High risk per AUA guidelines given > 30 pack years history. Will proceed with full workup. -Will schedule cystoscopy with urine FISH/cytology, pelvic exam. CT Urogram --- From: Suzan Collins MA ( - Prior Authorization) To: EU - Clinical; Cc: Suzan Collins MA; Sent: 09/21/2021 13:41:01 EDT Show up: 09/21/2021 13:40:00 EDT Subject: RE: sending urine for UA UA is done Cysto is scheduled for 09/27/2021 --- From: Suzan Collins MA ( - Clinical) To: EU - Clinical; Sent: 09/21/2021 15:43:23 EDT Show up: 09/21/2021 15:43:00 EDT Subject: RE: sending urine for UA UA was sent to [facility] for micro. I don't see the results in the pt's chart. But when they do get in chart, GURU needs to review them. Scratch that. They were sent to [facility]. Will forward to GURU. [facility] Coding Summary.on 09-17-2021 Coding Summary. CD:[id number]:[id number] 1SUi5yCl+PGhlYWQ+P R3MQKXnK43mfUKghW9 NW4aNYP3AAMSBXRVIA X5ZVV2fkON2ZPmqQ4N ybiAv UrcrbTYeBR99PAo5QO B2aJapANidsR8cnSNx K6o8JuDfAS32aA73FQ rxWFOlJoV0DwBnifrb bWFy P1ksUxSadYTyMxe+PH RhYmxlIHdpZHRoPScx CAWgTxMotGdqRW2zQt 9yZGVyLWNvbGxhcHNl OiBj o2chNSDvBTubOG7iwC udS6JmfQR4XTTit1r7 Qk56pSP+IQGuTTF0cI fcRJquc388GfDqy0lb IDM3 uOKwYTmjVRI3Z09hk1 J2ZTWaXHTdOOG8tXB5 sB6rtAiruomaR7XzhZ KqReJ1RTM6aQPbhX9m bGln bbqzpY0dUuk+Q09ESU 1DLAOBYA7ZNqv8E8Ql PjwvdHI+RQ20GVBgWD 41lLZaeDHvm5kgcZt8 JzEw UDNxSSN6uUesCVxrt9 UcVSYaP92vxKCec3M1 IGNvbGxhcHNlOyBlbX E4tL9tWRrbvgprv8hx dzsn Weegr9pabl73rA68B5 4sQIitWXUwOSB7EOGq JWPxwArlfy7lvQ7cKy 8+AYoic2ntj0iixWn3 IjIw AUIpaeJenYwnWIM1i8 HfCz84B8OskVcbt5Fu Rap6jc71oFVub4F3mU W7UIwdXOPetU0mCQol ZnQ6 JRJdSuWpuC70jWTpLJ nmPm9uvXsjyKmeJT3m ILQvdjclHKExxN6eIR GgsANltMfsCY5yPHWz bjtm f079ZoOjQMK0XGLlkR OlP6IxaH9yCfPrHSDn QAGmI9GmjFElKSbvH0 32IIvfTkD8BKGzoiWy Y2Fs EGLwgJlgJiR1e3R3Yb 4Dq7QbtnghCTR1ANwi NTHaYtGqOvZwXdA0B7 XqNgh6ZTXqpUxzSR2m J3Bh YOJhkznfjganmVP1TE UmHQWyuX97kNOjJKqe Im5oa4F5h794FOTqNL SwfC79Rm1pyHrzDESk dCBU xM5ehunak3jwxlscZo WzJIPpEVe8XCj0YZOh oAskNdQxRBL1EaQ7TN U6mAMqvQ3gnEmcvpol dG9w Oyc+D98qzP6gIZZ2OU E6xalcJQRzdeBqQH60 OY25E6JtPaukgERthA U+JOJlimKlmCxrJY6g YmFj l1dqs4XsYAezA2MdKL OvWQtbIqs0ZIKnXFI5 rUD6aO8fBASsSYgpr2 P1wXF7K5XqofTmpp0j b2xs RORsSUowR19kjCOif7 C8SDFjlFZ8ELAqeTmy OiEnoA10Fnb+PGNvbG ftc0QuBhltj2mzn9zc dGg9 IjMwJSIgdmFsaWduPS W4w7LsZw36R54qTUsf ZHRoPSIxNSUiIHZhbG ohiu6yhL9eFi2+PGNv bCB3 dRO0tX9lDQRsUhC6KC zoL555XxPgrHCmTlxx k0miw2kqlPg6TwSfSB JhidSlzCreSKC5g1Gc Lz48 W46mKAmkZKTlLXWuEV PeTHDgvNrlbp1vcV8l Ii8+SV1ph0pvap95aL 48dHI+QVEsZKB5hOkn PSdw LBYajE2rZTkyHxO3CS JwQsWmdJ46sENnAXbn Ij7qpVdvoQavGS6oYC Friprbb311JlKma8qy IDEw fYLgBHkqFUE5V54em3 E5IHLnZOGzKOQ9vMC7 nF8erFfjojnwhVClcS sgdmVydGljYWwtYWxp Z246 IHRvcDsnPlBhdGllbn UfSgTiHTf0P1SjLgm9 HPTyiJudUP7dgUIcYW qlMu6hqSlnnFvjNP7b NTBp yqqzu967YrUyn5yfZR VgePUnLEwzLRR8F64p a0X0IPXhBPSeMZO1jE C4fH4qzYkmrcvphZZa dDsg dmVydGljYWwtYWxpZ2 46IHRvcDsnPkJpcnRo WSKubLG9XX04PL37zQ Pkf4J2hXL4X6QcPSUn bmct zokbdSM0SZYxBSCmtB 50Vm6qfPxrHy1aRLOo CZA5EGXxuYLwC8JytX 6cIbYfHLXcPBBzS4At eHQt ACufU682CCvyVnN8UR EfbmTcD3KuAPVewXhj LsB6n3I1Tj6KM7P0XL 21DD40tMWhl8T5aBO8 J3Bh ZLJvybhdomsvyUC3GZ FbZGFfjZ36Hq8ylRno Bg5qRXUkBMX1HYMuyD QlK8ZgtS4yHmAmNQMo MDAw Q5IkvKYmFIzlJ637VL lyMkA1FUPycwCtY9Xm GILxrRnaXeV9u9S6Ln 8CWVk1JQ98TG63xNKe c3R5 wHO9H2XcERYgxaklav maeHF9KQOhPCItaG89 Aa5xhIcyMm7pDXBkWK Y3XYEprDEzH9KypL0a OiAj BTRbXFWoA0ZksOBpGK tvK353FRjbQnR0EUOd vcFhU8TvAEFmkLlhOr A1i4R1Vc6ACBBtHB82 IFR5 zEZ3PD34PI96C8PsQt wvdGFibGU+PHRhYmxl IHdpZHRoPScxMDAlJy ZbsDjyZL5hCs0sQHKk LWNv mGsycOKgXaVsd9vgQK DgQTunJK2kvEulR7Le jEU3SAGot0g0Nv60D3 1tC0DpsHT+PGNvbCB3 aWR0 cC0zWmYpZrA8WMygB6 13RcGyxGYrJnghh3qs v4iwwCv3FsE4SQApww GsiRbnIQB8c7FlVe28 Y29s IHdpZHRoPSIxNSUiIH QruEjrfq2xnA8rQd5+ BWTtnYM0xWE7vU0fJw EyOzN8DRufG316DmBv cCIv Ypnek2zyu4wabNc9Nu IwJSIgdmFsaWduPSJ0 a3XpHd50Y2VugRcrn3 KeJxs8ez20kJUue3A4 bGU9 P7DuEQZxevpxqNZxfS oiNJ7zJVDwyneyESJx vT1cHCBpI6h2BcFhFi R9MTiuE8JstkP9FCMw cHQg HYavNQD1D90ct1Q8HJ NkXLIjNLI9fMQ7zN7h bGlnbjogbGVmdDsgdm VgmSrvWVwzZQvvN852 IHRv rIquUEDaaN4pECZyzO CwpPdbPU4lTOOqrzlt AbvQPvNLDJKWI8WESK hOFB71V5VfGfg5JKLw dHls JN2opOPeCTkzUv0glC ydeWtjAK2zWTMhjqza VZHjtO1fQYMqwSZlkN obDG2gNYHlkzrhc257 OiAx QDY4DUGsmQVmT9VzfJ 9ePyCmNXEnUNRxU6Jp jDRkRQzcY561WVzcQh O8MOMlmhCjH8YlHQEx aWdu DqU2m4C8Hd2xKn1xQc 2hYDjqNH34BO34cJCz h9B5zAO1D6ZvHLZknb qlmogfxQZ1VNXgIDHt aW47 lJNkPTdsYn3bf1H1u5 60WVIyDWHlgT90Uc5a jBiuDYPioWFEqA1ddm pxi5fnznqcGrShDKRk MDt0 GRt3ELMgiDbpGgLrHQ T0MnD6PKZ2xWElkQ1y zHdydlvbuH4rMbf+ND igCMMsqqI3E8IuSta6 ZCBz bOihPQ8ujERhYRadQi 7jtExqvTmqXP9tTIKz pmvmVSLigV6gQXJbbM NyhQakZZ9iJYPwthia b250 LyMpPID3FNLblDSzU5 ZlxW5vSgJmPRHqYPNg O4FrfWRlXPjvQ626LG qcWlX4LFJeujFjU0Ds LWFs qPtjSzB6o8R5Vq5CYD 5maED7U3UbUnd4NRAz uJsrAM7vkLNaQGfnQt 8tbSjtjXjbZO1wSTZx bjtw HTLsgD4aNXTbzNXwrB vhAJ2fBYIiygohv165 AxQjFDB4UOOayKJsP4 PhjE6wWcWiMYAuLCIy O3Rl xFNvMWelT440ZIrrNw K4YAWbxgFfJ0SdAUHf kYkaSoM9n0D3Hq5PTN AoPLAxaXDcBfP9K2Hw Pjwv dHI+CM26BPZxYU05fI OlbWFmg7lteDd5FyMv EGRjFMN2lWagWLbsx4 AgCMTnC44liUUte4X2 IGNv qMxjbFVvBoSldUD7pF 4kBXoaadnpf2vogfab Fizcn0cjza80pU32O8 9sIHdpZHRoPSIzMCUi IHZh tDmqfa6blP2uLh7+PG IwuNU4fXN5oY1kQdMt IpO4ADsvN120KxRnnU BiVzeeb6zkr5geaUl4 IjIw YMOkvwRyvTohZYF5n2 TjOb68P70pAUryJFYd PSIyMCUiIHZhbGlnbj 6fcZ3xNb5+BR7mz7gk cm91 qP27vPX+VKQcJND9bK moWKbxYIBvvB4iFCag YmC4CLIbDkZylC77gH BoICsgNf2ptTmvtZmw MC4w BAIjhxjlv633ZpBrt0 xkIDEwcHQgVGltZXM7 Q45re3J2ORYyQWRnIK R0jLC9bB6jyYwcjrsi bGVm dDsgdmVydGljYWwtYW coR001BILldXblPgWm nKWhG1nihwUJHJ8aRr wvdGQ+LNIuYTL4rEfx PSdw HNBxfC6pJQJjD1j6Gk PlSsF5PLktW8VqzbR1 IGJvbGQgMTBwdCBUaW 3qygyzb5suvspyUgLk MDAw AKi0JWz4KICeaFqlNe CcUMR8JmO9LHZ1oNMs nU6ddIzyetgwfR2yOt c+RklOOjwvdGQ+PHRk IHN0 bOtjDBaoTPFqrU1zVL PaR0o6NoVlQfO9NPyr X1AsyrT6YXLvaUElTA HffOIGjE3ucxgkb8es cjog QhGxPKOsJOp4CRt4VS RvsGplZkShBDR1CqD2 IFD3rDAvsF7mzQwtuu nzaC7fEad+TVJOOjwv dGQ+ RGYvUHJ3hPekBRslOO EadI8vFCNcF1z0FjEx MpS2PHcvE6LzkuP1PJ IjcAQdDOSefGGEwH6w cztj i7cujabsPhHzNSXtMB c4LIm1KHVqcFziAuDr TLJ6LfO4MTL7nFIqmO 3cgHuoiyflxF1zLud+ UGF5 TJA6VM01NT11Q3GyYw wvdGFibGU+PHRhYmxl IHdpZHRoPScxMDAlJy PzjRkrNV1eVs6nSTDm LWNv bGxh (more content not included)... Normal [facility] Physician Referralon 022 Physician Referral [id number]:127 Normal [facility] Pre-Certification Formon Pre-Certification Form [id number]:127 Normal [facility] Patient Educationon 09-16-19 22 Patient Education Urology Hematuria, Adult Hematuria is blood in the urine. Blood may be visible in the urine, or it may be identified with a test. This condition can be caused by infections of the bladder, urethra, kidney, or prostate. Other possible causes include: ? Kidney stones. ? Cancer of the urinary tract. ? Too much calcium in the urine. ? Conditions that are passed from parent to child (inherited conditions). ? Exercise that requires a lot of energy. Infections can usually be treated with medicine, and a kidney stone usually will pass through your urine. If neither of these is the cause of your hematuria, more tests may be needed to identify the cause of your symptoms. It is very important to tell your health care provider about any blood in your urine, even if it is painless or the blood stops without treatment. Blood in the urine, when it happens and then stops and then happens again, can be a symptom of a very serious condition, including cancer. There is no pain in the initial stages of many urinary cancers. Follow these instructions at home: Medicines ? Take mbrc-uyx-aazxmaf and prescription medicines only as told by your health care provider. ? If you were prescribed an antibiotic medicine, take it as told by your health care provider. Do not stop taking the antibiotic even if you start to feel better. Eating and drinking ? Drink enough fluid to keep your urine clear or pale yellow. It is recommended that you drink 3?4 quarts (2.8?3.8 L) a day. If you have been diagnosed with an infection, it is recommended that you drink cranberry juice in addition to large amounts of water. ? Avoid caffeine, tea, and carbonated beverages. These tend to irritate the bladder. ? Avoid alcohol because it may irritate the prostate (men). General instructions ? If you have been diagnosed with a kidney stone, follow your health care provider's instructions about straining your urine to catch the stone. ? Empty your bladder often. Avoid holding urine for long periods of time. ? If you are female: ? After a bowel movement, wipe from front to back and use each piece of toilet paper only once. ? Empty your bladder before and after sex. ? Pay attention to any changes in your symptoms. Tell your health care provider about any changes or any new symptoms. ? It is your responsibility to get your test results. Ask your health care provider, or the department performing the test, when your results will be ready. ? Keep all follow-up visits as told by your health care provider. This is important. Contact a health care provider if: ? You develop back pain. ? You have a fever. ? You have nausea or vomiting. ? Your symptoms do not improve after 3 days. ? Your symptoms get worse. Get help right away if: ? You develop severe vomiting and are unable take medicine without vomiting. ? You develop severe pain in your back or abdomen even though you are taking medicine. ? You pass a large amount of blood in your urine. ? You pass blood clots in your urine. ? You feel very weak or like you might faint. ? You faint. Summary ? Hematuria is blood in the urine. It has many possible causes. ? It is very important that you tell your health care provider about any blood in your urine, even if it is painless or the blood stops without treatment. ? Take debi-lve-vhbezri and prescription medicines only as told by your health care provider. ? Drink enough fluid to keep your urine clear or pale yellow. This information is not intended to replace advice given to you by your health care provider. Make sure you discuss any questions you have with your health care provider. Document Released: 06/05/2006 Document Revised: 10/30/2019 Document Reviewed: 07/08/2017 [employer] Patient Education ? 2019 [employer] Normal [facility] RAD - CT Reporton 09-15-2021 RAD - CT Report [id number]#[id number]:127 Normal [facility] URINALYSISOrdered By: Shahla buckner on 09-15-2021 Bilirubin Ql (U) 2+ *ABN* (09/15/21 12:36 PM) Invalid Interpretation Code Negative [facility] UA Auto SS Calcium oxalate crystals LM Ql (Urine sed) Present (09/15/21 12:36 PM) Normal [facility] UA Auto SS Clarity (U) Clear (09/15/21 12:36 PM) Normal Clear [facility] UA Auto SS Color (U) Yellow (09/15/21 12:36 PM) Normal Yellow [facility] UA Auto SS Epithelial cells.squamous LM.HPF (Urine sed) [#/Area] 0-2 /HPF Normal 0-2/HPF [facility] UA Aut o SS Glucose Test strip (U) [Mass/Vol] Negative (09/15/21 12:36 PM) Normal Negative [facility] UA Auto SS Hemoglobin Ql (U) 3+ *ABN* (09/15/21 12:36 PM) Invalid Interpretation Code Negative [facility] UA Auto SS Ketones (U) [Mass/Vol] Negative (09/15/21 12:36 PM) Normal Negative [facility] UA Auto SS [place].plasma/[place]. RBC (Bld) [Mass ratio] 0-3 /HPF Normal 0-3/HPF [facility] UA A uto SS Mucus Ql (Urine sed) Trace (09/15/21 12:36 PM) Normal [facility] UA Auto SS Nitrite Ql (U) Negative (09/15/21 12:36 PM) Normal Negative [facility] UA Auto SS pH (U) 5.5 *NA* (09/15/21 12:36 PM) Invalid Interpretation Code 5.0 - 9.0 [facility] UA Auto SS Protein (U) [Mass/Vol] Negative (09/15/21 12:36 PM) Normal Negative [facility] UA Auto SS Specific gravity (U) [Rel density] 1.025 *NA* (09/15/21 12:36 PM) Invalid Interpretation Code 1.005 - 1.030 [facility] UA Auto SS UA Spec Desc Clean Catch (09/15/21 12:36 PM) Normal [facility] UA Auto SS Urobilinogen Qn (U) 0.0962184 {Edelmira'U}/dL Normal 0.0 - 1.0 EU/dL [facility] UA Auto SS WBC Auto Ql (U) Negative (09/15/21 12:36 PM) Normal Negative [facility] UA Auto SS WBC LM.HPF (Urine sed) [#/Area] 0-5 /HPF Normal 0-5/HPF [facility] UA Auto SS Urinalysison 09-15-2021 Bilirubin Ql (U) 2+ Abnormal Negative [facility] Comment on above: Performed By: #### 1 [id number] #### [facility] [address] [place] [address] Calcium oxalate crystals LM Ql (Urine sed) Present Normal [facility] Comment on above: Performed By: #### 1 [id number] #### [facility] [address] [place] [address] Clarity (U) CLEAR Normal Clear [facility] Comment on above: Performed By: #### 1 [id number] #### [facility] [address] [place] [address] Color (U) YELLOW Normal Yellow [facility] Comment on above: Performed By: #### 1 [id number] #### [facility] [address] [place] [address] Epithelial cells.squamous LM.HPF (Urine sed) [#/Area] 0-2 Normal 0-2 [facility] Comment on above: Performed By: #### 1 [id number] #### [facility] [address] [place] [address] Glucose Test strip (U) [Mass/Vol] Negative Normal Negative [facility] Comment on above: Performed By: #### 1 [id number] #### [facility] [address] [place] [address] Hemoglobin Ql (U) 3+ Abnormal Negative [facility] Comment on above: Performed By: #### 1 [id number] #### [facility] [address] [place] [address] Ketones (U) [Mass/Vol] Negative Normal Negative [facility] Comment on above: Performed By: #### 1 [id number] #### [facility] [address] [place] [address] [place].plasma/[place]. RBC (Bld) [Mass ratio] 0-3 Normal 0-3 [facility] Comment on above: Performed By: #### 1 [id number] #### [facility] [address] [place] [address] Mucus Ql (Urine sed) TRACE Normal [facility] Comment on above: Performed By: #### 1 [id number] #### [facility] [address] [place] [address] Nitrite Ql (U) Negative Normal Negative [facility] Comment on above: Performed By: #### 1 [id number] #### [facility] [address] [place] [address] pH (U) 5.5 [pH] Invalid Interpretation Code 5.0-9.0 [facility] Comment on above: Performed By: #### 1 [id number] #### [facility] [address] [place] [address] Protein (U) [Mass/Vol] Negative Normal Negative [facility] Comment on above: Performed By: #### 1 [id number] #### [facility] [address] [place] [address] Specific gravity (U) [Rel density] 1.025 Invalid Interpretation Code 1.005-1.030 [facility] Comment on above: Performed By: #### 1 [id number] #### [facility] [address] [place] [address] Type of Urine collection method Clean Catch Normal [facility] Comment on above: Performed By: #### 1 [id number] #### [facility] [address] [place] [address] Urobilinogen Qn (U) 0.2 {[place]'U}/dL Normal 0.0-1.0 [facility] Comment on above: Performed By: #### 1 [id number] #### [facility] [address] [place] [address] WBC Auto Ql (U) Negative Normal Negative [facility] Comment on above: Performed By: #### 1 [id number] #### [facility] [address] [place] [address] WBC LM.HPF (Urine sed) [#/Area] 0-5 Normal 0-5 [facility] Comment on above: Performed By: #### 1 [id number] #### [facility] [address] [place] [address] CT CHEST W CONon 09-07-2021 CT CHEST W CON Begin Addendum #1 CORRECTION: The original report has an error in the findings section under vasculature. It should read: VASCULATURE: NO filling defect within the central pulmonary arteries. Original Report EXAMINATION: CT CHEST W CON HISTORY: Solitary nodule of lung COMPARISON: 08/16/2021 TECHNIQUE: Multi-planar CT images were created with IV contrast. Axial, Coronal, and Sagittal images. Dose reduction techniques were achieved by using automated exposure control and/or adjustment of mA and/or kV according to patient size and/or use of iterative reconstruction technique. FINDINGS: LUNGS: A few scattered solid and groundglass pulmonary nodules are noted throughout both lungs, subcentimeter in size. Some thickening of the right minor fissure axial image 53 sagittal image 77. The largest groundglass nodule is noted in the left upper lobe measuring 5 mm, axial image 15. The largest solid nodule subpleural medial basilar segment of the left lower lobe 4 mm, axial image 59 PLEURA: No mass, effusion, or pneumothorax. VASCULATURE: Filling defect within the central pulmonary arteries JAYANT: Scattered hilar lymph nodes MEDIASTINUM: Soft tissue attenuation in the anterior mediastinum, nonspecific. Few scattered lymph nodes CARDIAC: No enlargement, pericardial thickening, or significant calcification. AORTA: No aneurysm or dissection. CHEST WALL: No mass or axillary adenopathy. BONES: No bone lesion or fracture. LIMITED ABDOMEN: Diffuse hypoattenuation the liver suggests hepatic steatosis. 2 hypodensities left hepatic lobe, small cysts favored OTHER: Negative. IMPRESSION: No central pulmonary thromboembolic disease Scattered punctate groundglass and solid pulmonary nodules, nonspecific, of doubtful clinical significance Normal [facility] COVID Quick Testingon 2020 Result Negative [facility] Other Vital Signs Date Time Vital Sign Value Performing Clinician Facility 09-15-2021 08:30-0400 Blood Pressure Location Vickie Lupiero [facility] 09-15-2021 08:30-0400 Diastolic blood pressure 80 mm[Hg] Vickie Lue [facility] 09-15-2021 08:30-0400 Systolic blood pressure 124 mm[Hg] Vickie Lue [facility] 04-14-2021 20:30-0400 Body height 170.18 cm Cecy Chiang Other [facility] Other 04-14-2021 20:30-0400 Body mass index (BMI) [Ratio] 32.1 kg/m2 Cecy Chiang Other [facility] Other 04-14-2021 20:30-0400 Body temperature 97.5 [degF] Cecy Chiang Other [facility] Other 04-14-2021 20:30-0400 Body weight 92.99 kg Cecy Chiang Other [facility] Other 04-14-2021 20:30-0400 Respiratory rate 18 /min Cecy Chiang Other [facility] Other 04-14-2021 20:30-0400 SaO2% (BldA) [Mass fraction] 96 % Cecy Chiang Other [facility] Other Encounters Encounter Date Encounter Type Care Provider Facility Start: 12-11-2023 End: 12-11-2023 ambulatory SHANDRA DANTEZ Not Available Start: 09-07-2023 End: 09-07-2023 ambulatory SHANDRA DANTEZ Not Available Start: 12-06-2022 End: 12-06-2022 ambulatory Kendra Woodall Facility:[facility] Start: 12-06-2022 End: 12-06-2022 ambulatory Shandra Delia Romero Work Phone: [facility] Work Phone: Start: 12-06-2022 End: 12-06-2022 Patient encounter procedure Shandra Heather Work Phone: [facility] [address] Work Phone: Start: 10-03-2022 End: 10-03-2022 ambulatory Cecil Taylor Facility:[facility] Start: 10-03-2022 End: 10-03-2022 ambulatory Shandra Delia Romero Work Phone: [facility] Work Phone: Start: 10-03-2022 End: 10-03-2022 Patient encounter procedure Shandra Romero Work Phone: [facility] [address] Work Phone: Start: 08-18-2022 End: 08-19-2022 ambulatory TONI ROMERO Facility:[facility] Start: 06-07-2022 End: 06-08-[address] DOCTOR WELCH Facility:[facility] Start: 02-25-2022 End: 02-26-2022 ambulatory HOLTER TECHNICIAN SHANDRA ROMERO Facility:[facility] Start: 02-01-2022 End: 02-02-2022 ambulatory HOLTER TECHNICIAN SHANDRA ROMERO Facility:[facility] Start: 12-13-2021 End: 12-14-2021 ambulatory TONI ROMERO Facility:[facility] Start: 09-15-2021 End: 09-15-2021 Lab Drop off Vickie Montiel [facility] Start: 09-15-2021 End: 09-15-2021 Patient encounter procedure Vickie Montiel [facility] Start: 09-06-2021 End: 09-07-2021 ambulatory TONI ROMERO Facility:[facility] Start: 04-14-2021 End: 04-14-2021 ambulatory Cecy Chiang Other [facility] Other Start: 04-14-2021 Office outpatient visit 15 minutes Cecy Chiang [facility] Procedures Date Procedure Procedure Detail Performing Clinician Start: 06-19-2016 Hysterectomy Vickie Montiel Immunizations Immunization Date Immunization Notes Care Provider Fa cility NEGATED: Highlighted row has not occurred!09-15-2021 SARS-CoV-2 (COVID-19) Ad26 vaccine, recombinant Vickie Montiel [facility] Payers Date Payer Category Payer Self-pay [id number] 1970 Unknown [id number] 2.16.84 [id number] 1972 Unknown [id number] 2.16.84 [id number] 1972 Unknown [id number] 2.16.84 [id number] 1972 Unknown [id number] 2.16.84 [id number] 1972 Unknown [id number] 2.16.84 [id number] 1972 Unknown [id number] 2.16.84 [id number] 1972 Unknown [id number] 2.16.84 [id number] 1972 Unknown [id number] 2.16.84 [id number] 1972 Unknown [id number] 2.16.84 [id number] 1972 Unknown [id number] 2.16.84 [id number] 1957 [employer] Shield HUM [id number] Unknown [id number] 2.16.8 [id number] Unknown [id number] 2.16.8 [id number] Social History Date Type Detail Facility Start: 09-15-2021 Tobacco smoking status Heavy t obacco smoker (finding) [facility] Other Sex Assigned At Female [facility] Other Start: 1970 Sex Assigned At Female F [facility] Clinical Note 02-25-2022 Note Date & Type Note Facility 02-25-2022 Note PROCEDURE: XR HIP RT 2 3V WO PELVIS HISTORY: Pain in right hip joint ; acute right hip pain without injury COMPARISON: CT abdomen pelvis 08/08/2021 FINDINGS: BONES:No fracture, acute abnormality, or significant arthropathy. Stable dense benign-appearing bone island within left femoral neck. SOFT TISSUES:No visible soft tissue swelling. EFFUSION:None visible. OTHER: Negative. IMPRESSION: 1. No acute bone abnormality or appreciable degenerative changes of the right hip joint. Electronically authenticated by: TODD JACOBS Date: 2022-02-25 17:45 [facility] Clinical Note 09-15-2021 Note Date & Type Note Facility 09-15-2021 Note Chief Complaint Referral *Hematuria HPI Staff Evaluation requested by Shandra Romero CNP due to hematuria. Pt is a new pt, never before seen in our office. Pt states for the past year she has had blood in her urine with UA. Denies visible blood. CT abd/pel w & w/o done 08/16/21. States her urine is different. Occasional discomfort at times urinating, increases water and begins drinking cranberry juice. Symptoms then subside. Occasional mild to moderate lower back pain. Family Hx (aunts) that have had kidney stones. Personally denies any kidney stone history. Does wear panty liner, mild urge and stress incontinence. History of Present Illness Tests reviewed: reviewed UA, [facility] AP ([facility]), external records I have reviewed the previous health record information and history for this patient from Shandra Romero CNP I have reviewed and verified the staff HPI to be accurate for this encounter. There have been no associated fever, chills, flank pain, or blood in the urine. Denies any urinary infections since last encounter. Review of Systems PHQ Score Initial Depression Screen Score: 0 ROS - Provider Constitutional: denies weight loss, denies hot flashes. Eyes: denies eye problems. Gastrointestinal: denies nausea, denies vomiting. Cardiovascular: denies chest pain or angina. Integumentary: no dryness Musculoskeletal: denies musculoskeletal symptoms. ENMT: denies otolaryngeal symptoms. Respiratory: no shortness of breath. Heme/Lymph: denies easy bleeding tendency, denies easy bruising tendency. Psychiatric: no confusion, no anxiety. Genitourinary: See HPI. Physical Exam Vitals & Measurements BP: 124/80 HT: 170.0 cm HT: 170 cm WT: 93.9 kg WT: 93.9 kg BMI: 32.49 General Appearance: alert , no acute distress, well nourished, well developed female. Head: normocephalic . Eyes: normal orbit and globe. ENMT: normal examination of external ears. Chest: symmetric chest rise, respirations non labored . Cardiovascular: regular rate and rhythm. Abdomen: soft, non distended, no tenderness Genitourinary: bladder nonpalpable, no flank tenderness. Skin: warm, dry, no bruising. Psychiatric: cooperative, affect appropriate for age, normal judgement, euthymic mood. Assessment/Plan 1. Asymptomatic microscopic hematuria (R31.21: Asymptomatic microscopic hematuria) Patient denies visible blood, UA today shows large. UA done on 07/01/21 showed 2-5 RBC. -UA today will be sent for micro UA. High risk per AUA guidelines given > 30 pack years history. Will proceed with full workup. -Will schedule cystoscopy with urine FISH/cytology, pelvic exam. CT Urogram CT AP w/ and wo contrast done on 08/16/21 showed no acute abnormalities, stones, masses, or lesions. However NO delayed phase therefore unable to evaluate urinary system for disease. -Needs CT Urogram done (w/ wo IV contrast, delayed phase) Will schedule pt for CT urogram. The risks and benefits for cystoscopy have been discussed. The risks include bleeding, infection, and irritation of the bladder and urinary channel, among others. The patient, after being informed of procedural details and after questions have been answered, wishes to proceed. Full informed consent has been obtained. Will order Local anesthesia. At the time of the cystoscopy we will send UA for FISH/Cytol. Ordered: CT Urogram 2. Family history of cervical cancer (Z80.49: Family history of malignant neoplasm of other genital organs) Pt states her daughter just had a procedure for cervical cancer. Pt mother has cervical cancer and her aunt just from ovarian cancer. Ordered: CT Urogram 3. Mixed incontinence (N39.46: Mixed incontinence) Mild symptoms. Stress w/ coughing, standing, or sneezing. Urgency w/ holding bladder too long. Perimenopausal sx with intermittent dysuria without infection, dyspareunia. Hx recurrent yeast infections. -Advised pt to perform Kegel exercises to help strengthen bladder. -Discussed with patient beginning Estrace cream 0.1g 3x a week for 4 weeks and then 2x a week for maintenance after. Risks of med discussed -Paper education for pelvic floor and vaginal atrophy provided -Pelvic exam during cystoscopy Ordered: CT Urogram 4. Smoker (F17.200: Nicotine dependence, unspecified, uncomplicated) Patient states she has been smoking since she was 19. Advised pt smoking can cause bladder cancer. Pt states she has tried to quit in the past. Declined further assistance at this time, is working on it. Ordered: CT Urogram Orders: cephalexin, 500 mg = 1 cap(s), Oral, Daily, Start 1 day prior to procedure, # 2 cap(s), Refills(s) 0, Pharmacy: [facility]/pharmacy #[id number], 170, cm, 09/15/21 8:33:00 EDT, Height/Length Dosing, 93.9, kg, 09/15/21 8:33:00 EDT, Weight Dosing estradiol topical, See Instructions, 42.5 gm, Refill(s) 3, Apply pea sized amount 3x a week for 4 weeks and 2x a week after, [facility]/pharmacy #[id number], 170, cm, 09/15/21 8:33:00 EDT, Height/Length Dosing, 93.9, (more content not included)... [facility] Comment on above: Result Comment: Elec tronically Signed By: Vickie Montiel MD\.br\Date and Time Signed: 09/15/21 09:35 EDT\.br\Electronically Co-Signed By: Zohra Berg\.br\Date and Time Co-Signed: 09/15/21 09:17 EDT Hospital Discharge instructions 09-15-2021 Note Date & Type Note Facility 09-15-2021 Hospital Discharg e instructions Patient Education 09/15/2021 09:00:40 Hematuria, Adult Hematuria, Adult Hematuria is blood in the urine. Blood may be visible in the urine, or it may be identified with a test. This condition can be caused by infections of the bladder, urethra, kidney, or prostate. Other possible causes include: Kidney stones. Cancer of the urinary tract. Too much calcium in the urine. Conditions that are passed from parent to child (inherited conditions). Exercise that requires a lot of energy. Infections can usually be treated with medicine, and a kidney stone usually will pass through your urine. If neither of these is the cause of your hematuria, more tests may be needed to identify the cause of your symptoms. It is very important to tell your health care provider about any blood in your urine, even if it is painless or the blood stops without treatment. Blood in the urine, when it happens and then stops and then happens again, can be a symptom of a very serious condition, including cancer. There is no pain in the initial stages of many urinary cancers. Follow these instructions at home: Medicines Take xjso-dhk-rivttvy and prescription medicines only as told by your health care provider. If you were prescribed an antibiotic medicine, take it as told by your health care provider. Do not stop taking the antibiotic even if you start to feel better. Eating and drinking Drink enough fluid to keep your urine clear or pale yellow. It is recommended that you drink 3 4 quarts (2.8 3.8 L) a day. If you have been diagnosed with an infection, it is recommended that you drink cranberry juice in addition to large amounts of water. Avoid caffeine, tea, and carbonated beverages. These tend to irritate the bladder. Avoid alcohol because it may irritate the prostate (men). General instructions If you have been diagnosed with a kidney stone, follow your health care provider's instructions about straining your urine to catch the stone. Empty your bladder often. Avoid holding urine for long periods of time. If you are female: ?After a bowel movement, wipe from front to back and use each piece of toilet paper only once. ?Empty your bladder before and after sex. Pay attention to any changes in your symptoms. Tell your health care provider about any changes or any new symptoms. It is your responsibility to get your test results. Ask your health care provider, or the department performing the test, when your results will be ready. Keep all follow-up visits as told by your health care provider. This is important. Contact a health care provider if: You develop back pain. You have a fever. You have nausea or vomiting. Your symptoms do not improve after 3 days. Your symptoms get worse. Get help right away if: You develop severe vomiting and are unable take medicine without vomiting. You develop severe pain in your back or abdomen even though you are taking medicine. You pass a large amount of blood in your urine. You pass blood clots in your urine. You feel very weak or like you might faint. You faint. Summary Hematuria is blood in the urine. It has many possible causes. It is very important that you tell your health care provider about any blood in your urine, even if it is painless or the blood stops without treatment. Take [id number] and prescription medicines only as told by your health care provider. Drink enough fluid to keep your urine clear or pale yellow. This information is not intended to replace advice given to you by your health care provider. Make sure you discuss any questions you have with your health care provider. Document Released: 06/05/2006 Document Revised: 10/30/2019 Document Reviewed: 07/08/2017 [employer] Patient Education 2020 [email or web address]. Follow Up Care 08/23/2021 15:52:47 With:Dinesh SABA, MARCELLA Smith, URO Address[address] [place] [address] [phone] Business (1) When: Unknown [facility] Evaluation note 04-14-2021 Note Date & Type Note Facility 04-14-2021 Evaluation note Encounter Date Diagnosis Assessment Notes Mar, Contact with and (suspected) exposure to other viral communicable diseases (ICD-10 - Z20.828) Mar, Viral upper respiratory illness (ICD-10 - J06.9) Mar, Other Additional time spent conducting pre-visit phone call, screening for symptoms, instructions on social distancing, application and removal of PPE, and cleaning of examination room, equipment and supplies was preformed. Patient education given for testing methodology and results. Patient care instructions given in writting by [facility] Home document. Yaphie Other Evaluation + Plan note Note Date & Type Note Facility Evaluation + Plan note Future Appointments Appointment Date:09/16/2021 08:30:00 AM Scheduled Provider: Location:[facility] Appointment Type:Urology CALL PAT FT Appointment Date:09/27/2021 09:00:00 AM Scheduled Provider: Location:[facility] Appointment Type:Urology FT [facility] Evaluation note Note Date & Type Note Facility Evaluation note No assessment information availa [facility] Work Phone: History general Narrative - Reported Note Date & Type Note Facility History general Narrative - Reported Type Medical History rheumatoid arthritis Medical History Osteoarthritis Surgical History HYSTERECTOMY Surgical History 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 as chi ld Hospitalization History see above Yaphie Other Hospital course Narrative Note Date & Type Note Facility Hospital course Narrative No data available for this section [facility] Hospital Discharge instructions Note Date & Type Note Facility Hospital Discharge instructions No data available for this section [facility] Summary Purpose Family History No Family History Records FoundNo Family History Records FoundNo Family History Records FoundNo Family History Records Found Advance Directives No Advanced Directives Records Found Advance Directive Response Recorded Date/ Time Advance Directives No June 23, 2020 8:10am Chief Complaint and Reason for Visit Chief Complaint M05.79/m15.0/z79.899 Additional Source Comments REASON FOR VISIT (unrecogniz ed section and content) #26 SILVER CHEVY TRUCK, COVI D EXPOSURE, HEADACHE, SORE THROAT, HOT FLASHES, CHEST CONGESTION INFORMATION SOURCE (unrecogn ized section and content) DATE CREATED AUTHOR 02/01/2022 [facility] DATE CREATED AUTHOR AUTHOR'S ORGANIZ ATION 08/24/2022 [facility] DATE CREATED AUTHOR AUTHOR'S ORGANIZ ATION 12/15/2022 [facility] DATE CREATED AUTHOR AUTHOR'S ORGANIZ ATION 12/12/2023 [facility] [employer] Care Teams (unrecognized sec tion and content) Team Status: Active Member Role Status Dates Shandra Romero Primary Care Provider Active Team Status: Inactive Member Role Status Dates Shandra Romero Primary Care Provider Active Cecil Taylor MD Attending Provider Active Goals (unrecognized section and content) Goals may be documented in a n alternate section FOR RECORDS PERTAINING TO PATIENTS WHO ARE OR HAVE BEEN ENROLLED IN A CHEMICAL DEPENDENCY/SUBSTANCEABUSE PROGRAM, SOME INFORMATION MAY BE OMITTED. This clinical summary was aggregated from multiple sources. Caution should be exercised in using it in the provision of clinical care. This summary normalizes information from multiple sources, and as a consequence, information in this document may materially change the coding, format and clinical context of patient data. In addition, data may be omitted in some cases. CLINICAL DECISIONS SHOULD BE BASED ON THE PRIMARY CLINICAL RECORDS. [facility] [employer] [facility]. provides no warranty or guarantee of the accuracy or completeness of information in this document.
--- NOTE | 2024-02-02 21:37 | ED_ITS ---
HPI - Abdominal Pain General Chief Complaint: Abdominal Pain Stated Complaint: RADIATING ABD/FLANK PAIN Time Seen by Provider: 02/02/24 21:26 Source: patient Mode of arrival: walk-in History of Present Illness HPI narrative: 53-year-old female presents to the emergency department for pain in the right side of her abdomen. She has had it all day and it seems to come and go. She had a little bit of back pain a few days ago. No injury constipation diarrhea or fever. She has never had a kidney stone. Related Data Home Medications ?Medication ?Instructions ?Recorded ?Confirmed amitriptyline 25 mg tablet 25 mg PO QPM 02/02/24 02/02/24 duloxetine 60 mg capsule,delayed 60 mg PO DAILY 02/02/24 02/02/24 release etodolac 500 mg tablet 500 mg PO BID 02/02/24 02/02/24 folic acid 1 mg tablet 1 mg PO DAILY 02/02/24 02/02/24 hydroxychloroquine 200 mg tablet 200 mg PO BID 02/02/24 02/02/24 methotrexate sodium 25 mg/mL 15 mg subcut QWEEK 02/02/24 02/02/24 injection solution omeprazole 20 mg capsule,delayed 20 mg PO DAILY 02/02/24 02/02/24 release Previous Rx's ?Medication ?Instructions ?Recorded ondansetron 4 mg disintegrating 4 mg PO Q6H PRN nausea and 02/02/24 tablet vomiting #20 tabs Allergies Allergy/AdvReac Type Severity Reaction Status Date / Time No Known Drug Allergies Allergy Verified 02/02/24 21:32 Review of Systems ROS Narrative A ten point review of systems is negative except as noted above. Exam Narrative Exam Narrative: Nurses note and vital signs reviewed and patient is not hypoxic. General: The patient appears uncomfortable. Skin: Warm, dry, no pallor noted. There is no rash noted. Head: Normocephalic, atraumatic Eye: Normal conjunctiva, no drainage Ears, Nose, Mouth, and Throat: oral mucosa is moist. Nares patent. Cardiovascular: Regular Rate and Rhythm Respiratory: Patient is in no distress, no accessory muscle use, lungs are clear to auscultation, no wheezing, rales or rhonchi Back: non-tender, no CVA tenderness bilaterally to percussion. GI: Soft and no tenderness, no masses Musculoskeletal: No joint swelling Neurological: A&O, normal speech Psychiatric: Cooperative Constitutional Vital Signs, click to edit/add: Last Vital Signs Temp 98.5 F 02/02/24 21:29 Pulse 92 H 02/02/24 21:29 Resp 16 02/02/24 21:29 BP 121/83 02/02/24 21:29 Pulse Ox 99 02/02/24 21:29 Course Vital Signs Vital signs: Vital Signs Temperature 98.5 F 02/02/24 21:29 Pulse Rate 92 H 02/02/24 21:29 Respiratory Rate 16 02/02/24 21:29 Blood Pressure 121/83 02/02/24 21:29 Pulse Oximetry 99 02/02/24 21:29 Temperature 98.5 F 02/02/24 21:29 Pulse Rate 92 H 02/02/24 21:29 Respiratory Rate 16 02/02/24 21:29 Blood Pressure 121/83 02/02/24 21:29 Pulse Oximetry 99 02/02/24 21:29 MDM - Abdominal Pain MDM Narrative Medical decision making narrative: CT scan is consistent with enteritis. No evidence of kidney stone. She is dis charged home with a prescription for Zofran. Treatment diagnosis and follow-up were discussed with the patient. Differential Diagnosis Differential diagnosis: Likely abdominal pain, acute appendicitis, calculus of kidney, constipation and gastroenteritis Lab Data Attestation: I reviewed the patient's lab results. Labs: Lab Results 02/02/24 02/02/24 Range/Units 21:41 21:47 WBC 11.3 H (4.0-11.0) 10^3/uL RBC 4.71 (4.20-5.40) 10^6/uL Hgb 13.3 (12.0-16.0) g/dL Hct 40.5 (36.0-48.0) % MCV 86.0 (81.0-99.0) fL MCH 28.2 (26.7-34.0) pg MCHC 32.8 (29.9-35.2) g/dL RDW 13.5 (11.0-15.0) % Plt Count 363 (150-450) 10^3/uL MPV 9.4 L (9.5-13.5) fL Neut % (Auto) 80.3 H (43.0-75.0) % Lymph % (Auto) 13.8 L (20.5-60.0) % [place]aufman % (Auto) 4.9 (1.7-12.0) % Eos % (Auto) 0.4 L (0.9-7.0) % Baso % (Auto) 0.4 (0.2-2.0) % Neut # (Auto) 9.1 H (1.4-6.5) 10^3/uL Lymph # (Auto) 1.6 (1.2-3.8) 10^3/uL [place]aufman # (Auto) 0.6 (0.3-0.8) 10^3/uL Eos # (Auto) 0.0 (0.0-0.7) 10^3/uL Baso # (Auto) 0.1 (0.0-0.1) 10^3/uL Abs Immat Gran (auto) 0.02 (0.00-0.03) 10^3/uL Imm/Tot Granulo (auto) 0.2 (0.0-0.5) % Sodium 139 (136-145) mmol/L Potassium 3.5 (3.5-5.1) mmol/L Chloride 104 (98-107) mmol/L Carbon Dioxide 25.2 (21.0-32.0) mmol/L Anion Gap 13.3 BUN 21.0 H (7.0-18.0) mg/dL Creatinine 0.89 (0.55-1.02) mg/dL Est GFR ( Amer) >60 (>=60) Est GFR (Non-Af Amer) >60 (>=60) BUN/Creatinine Ratio 23.6 Glucose 115 H (74-106) mg/dL Calcium 9.1 (8.5-10.1) mg/dL Urine Color Lt. yellow (YELLOW) Urine Clarity Clear (CLEAR) Urine pH 5.5 (5.0-9.0) Ur Specific [place] >=1.030 A (1.005-1.025) Urine Protein Negative (NEG/TRACE) mg/dL Urine Glucose (UA) Negative (NEGATIVE) mg/dL Urine Ketones Negative (NEGATIVE) mg/dL Urine Occult Blood Large A (NEGATIVE) Urine Nitrite Negative (NEGATIVE) Urine Bilirubin Negative (NEGATIVE) Urine Urobilinogen 0.2 (0.2-1.0) EU/dL Ur Leukocyte Esterase Negative (NEGATIVE) Urine RBC 0-2 (0-2) #/HPF Urine WBC None seen (NONE SEEN) #/HPF Ur Squamous Epith Cells Few A (NONE/RARE) #/LPF Urine Crystals None seen (None Seen) #/HPF Amorphous Sediment Few Urine Bacteria None seen (NONE SEEN) #/HPF Urine Casts None seen (NONE SEEN) #/LPF Urine Mucus Trace A (NONE SEEN) Ur Culture Indicated? No Imaging Data CT scan - abdomen: Radiologist's impression: ITS Impressions Abdomen/Pelvis CT 02/02/24 22:04 IMPRESSION: 1. No obstructive uropathy. No nephrolithiasis. 2. Mildly thickened small bowel loops in the pelvis. Correlate for enteritis. Electronically authenticated by: PEG PATINO Date: 02/02/2024 23:14 Discharge Plan Discharge Stand Alone Forms: Portal Instructions Chief Complaint: Abdominal Pain Clinical Impression: Enteritis Patient Disposition: Home, Self-Care Time of Disposition Decision: 23:27 Condition: Good Mode of Transportation: Private Vehicle Prescriptions / Home Meds: New ondansetron 4 mg tablet,disintegrating 4 mg PO Q6H PRN (Reason: nausea and vomiting) Qty: 20 0RF No Action amitriptyline 25 mg tablet 25 mg PO QPM duloxetine 60 mg capsule,delayed release(DR/EC) 60 mg PO DAILY etodolac 500 mg tablet 500 mg PO BID folic acid 1 mg tablet 1 mg PO DAILY hydroxychloroquine 200 mg tablet 200 mg PO BID methotrexate sodium 25 mg/mL solution 15 mg subcut QWEEK Patient Comments: MONDAY omeprazole 20 mg capsule,delayed release(DR/EC) 20 mg PO DAILY Print Language: Tanzanian Instructions: Enteritis (ED) Referrals: Shandra Romero SURVEYOR ROD HELPER [Primary Care Provider] - 1 week
[2024-02-02 21:55] LABS: Basophils Absolute Auto 0.1 10^3/uL (0.0-0.1); Basophils Percent Auto 0.4 % (0.2-2.0); Eosinophils Percent Auto 0.4 % (0.9-7.0); Hematocrit 40.5 % (36.0-48.0); Hemoglobin 13.3 g/dL (12.0-16.0); Immature Granulocytes Abs Auto 0.02 10^3/uL (0.00-0.03); Immature Granulocytes Pct Auto 0.2 % (0.0-0.5); Lymphocytes Absolute Auto 1.6 10^3/uL (1.2-3.8); Lymphocytes Percent Auto 13.8 % (20.5-60.0); Mean Corpuscular HGB Conc 32.8 g/dL (29.9-35.2); Mean Corpuscular Hemoglobin 28.2 pg (26.7-34.0); Mean Platelet Volume 9.4 fL (9.5-13.5); Monocytes Absolute Auto 0.6 10^3/uL (0.3-0.8); Monocytes Percent Auto 4.9 % (1.7-12.0); Neutrophils Absolute Auto 9.1 10^3/uL (1.4-6.5); Neutrophils Percent Auto 80.3 % (43.0-75.0); Platelet Count 363 10^3/uL (150-450); Red Blood Count 4.71 10^6/uL (4.20-5.40); Red Cell Distribution Width 13.5 % (11.0-15.0); White Blood Count 11.3 10^3/uL (4.0-11.0)
[2024-02-02 21:56] LABS: Bilirubin Urine NEGATIVE (NEGATIVE); Blood Urine LARGE (NEGATIVE); Clarity Urine CLEAR (CLEAR); Color Urine LT. YELLOW (YELLOW); Glucose Urine UA NEGATIVE (NEGATIVE); Ketones Urine NEGATIVE (NEGATIVE); Leukocyte Esterase Urine NEGATIVE (NEGATIVE); Nitrite Urine NEGATIVE (NEGATIVE); Protein Urine NEGATIVE (NEG/TRACE); Specific Gravity Urine >=1.030 (1.005-1.025); Urobilinogen Urine 0.2 EU/dL (0.2-1.0); pH Urine 5.5 (5.0-9.0)
--- NOTE | 2024-02-02 22:04 | CT_ITS ---
The [address] [address] Patient Name: MONET ORTEGA MRN: [id number] date: 1970 Sex: F Assigned Patient Location: ER Current Patient Location: ER Accession/Order Number: [id number] Exam Date: 02/02/2024 22:11 Report Date: 02/02/2024 23:14 At the request of: ELLEN JANG Procedure: CT abdomen pelvis wo con CT ABDOMEN/PELVIS WITHOUT IV CONTRAST. INDICATION: Right sided pain, rule out kidney COMPARISON: There are no other studies available for comparison. TECHNIQUE: Contiguous axial images were obtained from the lung bases to the pelvic floor without intravenous or oral contrast. Coronal and sagittal reformations are provided. FINDINGS: LOWER LUNGS: Clear. LIVER/BILIARY TREE: There is a 1 cm cyst in the left hepatic lobe. No intrahepatic ductal dilatation. GALLBLADDER: No significant gallbladder wall thickening. No radiopaque stone. CBD: Normal CBD. SPLEEN: Normal in size. PANCREAS: No appreciable peripancreatic fluid. No pancreatic ductal dilatation. No discrete lesion. ADRENALS: Normal. KIDNEYS: No hydronephrosis. No radiopaque calculus. STOMACH AND BOWEL: Stomach is unremarkable. No dilated bowel loops. There are mildly thickened small bowel loops in the pelvis. APPENDIX: Normal appendix. PERITONEAL CAVITY: No fluid. No fat stranding. ABDOMINAL WALL: No subcutaneous stranding. No subcutaneous fluid collection. LYMPH NODES: No mesenteric or retroperitoneal lymphadenopathy by CT criteria. ABDOMINAL AORTA: No aneurysm. PELVIS: No acute abnormality. MUSCULOSKELETAL: No acute osseous abnormality. CT/CT abdomen pelvis wo con IMPRESSION: 1. No obstructive uropathy. No nephrolithiasis. 2. Mildly thickened small bowel loops in the pelvis. Correlate for enteritis. Electronically authenticated by: PEG PATINO Date: 02/02/2024 23:14
[2024-02-02 22:08] LABS: Amorphous Sediment Urine FEW; Bacteria Urine NONE SEEN #/HPF (NONE SEEN); Cast Seen? NONE SEEN #/LPF (NONE SEEN); Crystals Seen? None Seen #/HPF (None Seen); Mucus Urine TRACE (NONE SEEN); RBC Urine 0-2 #/HPF (0-2); Squamous Epithelial Cell Urine FEW #/LPF (NONE/RARE); Urine Culture Indicated NO; WBC Urine NONE SEEN #/HPF (NONE SEEN)
[2024-02-02 22:09] LABS: Anion Gap 13.3; BUN Creatinine Ratio 23.6; Calcium 9.1 mg/dL (8.5-10.1); Carbon Dioxide 25.2 mmol/L (21.0-32.0); Chloride 104 mmol/L (98-107); Estimated GFR (African America >60 (>=60); Estimated GFR (Non-African Ame >60 (>=60); Glucose 115 mg/dL (74-106); Potassium 3.5 mmol/L (3.5-5.1); Sodium 139 mmol/L (136-145)
[2024-02-02] MEDS: ONDANSETRON PF 4 MG/2 ML VIAL IV (23:28)
== END 2024-02-02 23:39 | disposition home or self-care (01) ==
PROVIDERS: Emergency Provider Emergency Medicine; PCP Nurse Practitioner
DX: K52.9 Noninfective gastroenteritis and colitis, unspecified (principal)
CPT/HCPCS: 36415; 74176; 80048; 81001; 85025; 96374; 99284; J2405

== ENCOUNTER 2024-03-02 14:25 | Emergency (ER) | payer BC, SELFPAY ==
[2024-03-02] VITALS (15 sets, daily range): BP systolic 109–112; BP diastolic 73–77; PULSE 84–99; TEMP 37.3; O2SAT 94–100; BMI 32.5
--- OUTSIDE RECORDS SUMMARY | 2024-03-02 14:44 | XMS_ITS | CCD ---
Author Organization [facility] Care Team Providers Care Tank Refinisher Name Role Phone INGRIS ROMEROA J Primary Care Physician Cecy Chiang Unavailable AICHHOLZ, HAM SMOKER SHANDRA Admitting Unavailable AICHHOLZ, HAM SMOKER SHANDRA Attending Unavailable AICHHOLZ, HAM SMOKER SHANDRA Primary Care Unavailable DR WEST OBANDO V Consulting Unavailable AICHHOLZ, HAM SMOKER SHANDRA Consulting Unavailable MISC, DR IBARRA Admitting Unavailable MISC, DR IBARRA Attending Unavailable AICHHOLZ, HAM SMOKER SHANDRA Primary Care Unavailable MISC, DR IBARRA Consulting Unavailable MISC, DR IBARRA Admitting Unavailable MISC, DR IBARRA Attending Unavailable AICHHOLZ, HAM SMOKER SHANDRA Primary Care Unavailable AICHHOLZ, HAM SMOKER SHANDRA Consulting Unavailable MISC, DR IBARRA Consulting Unavailable ZIEBRADHA, DR TODD Tai Consulting Unavailable AICHHOLZ, HAM SMOKER SHANDRA Admitting Unavailable AICHHOLZ, HAM SMOKER SHANDRA Attending Unavailable AICHHOLZ, HAM SMOKER SHANDRA Primary Care Unavailable SAMSA ., ANGELA Admitting Unavailable SAMSA ., ANGELA Attending Unavailable AICHHOLZ, HAM SMOKER SHANDRA Primary Care Unavailable MARIA ISABELEBDR TODD GARCIA Consulting Unavailable SAMSA ., ANGELA Consulting Unavailable AICHHOLZ, HAM SMOKER SHANDRA Admitting Unavailable AICHHOLZ, HAM SMOKER SHANDRA Attending Unavailable AICHHOLZ, HAM SMOKER SHANDRA Primary Care Unavailable AICHHOLZ, HAM SMOKER SHANDRA Consulting Unavailable AICHHOLZ, HAM SMOKER SHANDRA Admitting Unavailable AICHHOLZ, HAM SMOKER SHANDRA Attending Unavailable AICHHOLZ, HAM SMOKER SHANDRA Primary Care Unavailable AICHHOLZ, HAM SMOKER SHANDRA Consulting Unavailable AICHHOLZ, HAM SMOKER SHANDRA Admitting Unavailable AICHHOLZ, HAM SMOKER SHANDRA Attending Unavailable AICHHOLZ, HAM SMOKER SHANDRA Primary Care Unavailable DR WEST OBANDO V Consulting Unavailable AICHHOLZ, HAM SMOKER SHANDRA Consulting Unavailable Aichdebiz, Shandra J Primary Care Provider MD Cecil Taylor Attending Provider Kendra Woodall Admitting Unavailable Shandra Romero Primary [...] procedure, # 2 cap(s), Refills(s) 0, Pharmacy: [facility]/pharmacy #[id number], 170, cm, 09/15/21 8:33:00 EDT, Height/Length Dosing, 93.9, kg, 09/15/21 8:33:00 EDT, Weight Dosing Start Date: 09/15/21 Status: Ordered Estradiol (2 sources) Estrogen Start: 09-15-2021 Estrace 0.1 mg/g Cream See Instructions, 42.5 gm, Refill(s) 3, Apply pea sized amount 3x a week for 4 weeks and 2x a week after, [facility]/pharmacy #[id number], 170, cm, 09/15/21 8:33:00 EDT, Height/Length [...] 12-06-2022 ALT [Catalytic activity/Vol] 12 U/L 7-52 [facility] Albumin [Mass/volume] in Ser um or Plasma by Bromocresol green (BCG) dye binding methoOrdered By: Yayo Taylor on 12-06-2022 Albumin BCG dye [Mass/Vol] 4.6 g/dL 3.5-5.7 [facility] Alkaline phosphatase [Enzyma tic activity/volume] in Serum or PlasmaOrdered By: Yayo Taylor on 12-06-2022 ALP [Catalytic activity/Vol] 79 U/L 34-104 [facility] Aspartate aminotransferase [ Enzymatic activity/volume] in Serum or PlasmaOrdered By: Yayo Taylor on 12-06-2022 AST [Catalytic activity/Vol] 15 U/L 13-39 [facility] Basophils Auto (Bld) [#/Vol] Ordered By: Yayo Taylor on 12-06-2022 Basophils (Bld) [#/Vol] 0.0 10*3/uL 0.0-0.2 [facility] Basophils/100 WBC Auto (Bld) Ordered By: Yayo Taylor on 12-06-2022 Basophils/100 WBC (Bld) 0.6 % . [facility] Bilirubin.total [Mass/volume ] in Serum or PlasmaOrdered By: Yayo Taylor on 12-06-2022 Bilirubin [Mass/Vol] 0.3 mg/dL 0.3-1.0 [facility] Calcium [Mass/volume] in Ser um or PlasmaOrdered By: Yayo Taylor on 12-06-2022 Calcium [Mass/Vol] 9.6 mg/dL 8.6-10.3 [facility] Carbon dioxide, total [Moles /volume] in Serum or PlasmaOrdered By: Yayo Taylor on 12-06-2022 CO2 [Moles/Vol] 29.0 mmol/L 21.0-31.0 [facility] Chloride [Moles/volume] in S dot or PlasmaOrdered By: Yayo Taylor on 12-06-2022 Chloride [Moles/Vol] 105 mmol/L 98-107 [facility] Complete Blood Count Auto Di ffon 12-06-2022 Basophils (Bld) [#/Vol] 0.0 10*3/uL Normal 0.0-0.2 [facility] Comment on above: Performed By: #### C BC, CMP, ESR #### [facility] [address] Basophils/100 WBC (Bld) 0.6 % Normal . [facility] Comment on above: Performed By: #### C BC, CMP, ESR #### [facility] [address] [place] [id number] [place] Eosinophils (Bld) [#/Vol] 0.2 10*3/uL Normal 0.0-0.45 [facility] Comment on above: Performed By: #### C BC, CMP, ESR #### [facility] [address] [place] [id number] [place] Eosinophils/100 WBC (Bld) 2.7 % Normal . [facility] Comment on above: Performed By: #### C BC, CMP, ESR #### [facility] [address] [place] [address] [place] Erythrocyte distribution width (RBC) [Ratio] 14.2 % Normal 11.9-15.3 [facility] Comment on above: Performed By: #### C BC, CMP, ESR #### [address] Hematocrit (Bld) [Volume fraction] 38.4 % Normal 34.0-46.4 [facility] Comment on above: Performed By: #### C BC, CMP, ESR #### [address] Hemoglobin (Bld) [Mass/Vol] 12.7 g/dL Normal 11.8-15.4 [facility] Comment on above: Performed By: #### C BC, CMP, ESR #### [address] Lymphocytes (Bld) [#/Vol] 2.4 10*3/uL Normal 1.00-4.8 [facility] Comment on above: Performed By: #### C BC, CMP, ESR #### [address] Lymphocytes/100 WBC (Bld) 32.4 % Normal . [facility] Comment on above: Performed By: #### C BC, CMP, ESR #### [address] MCH (RBC) [Entitic mass] 28.5 pg Normal 24.7-34.3 [facility] Comment on above: Performed By: #### C BC, CMP, ESR #### [address] MCV (RBC) [Entitic vol] 86.3 fL Normal 80-100 [facility] Comment on above: Performed By: #### C BC, CMP, ESR #### [address] Mean Corpuscular HGB Conc 33.0 g/dL Normal 32.0-35.0 [facility] Comment on above: Performed By: #### C BC, CMP, ESR #### [address] Monocytes (Bld) [#/Vol] 0.5 10*3/uL Normal 0.0-0.8 [facility] Comment on above: Performed By: #### C BC, CMP, ESR #### [facility] [address] [place] [address] [place] Monocytes/100 WBC (Bld) 6.3 % Normal . [facility] Comment on above: Performed By: #### C BC, CMP, ESR #### [facility] [address] Neutrophils (Bld) [#/Vol] 4.3 10*3/uL Normal 1.8-7.7 [facility] Comment on above: Performed By: #### C BC, CMP, ESR #### [facility] [address] Neutrophils/100 WBC (Bld) 58.0 % Normal . [facility] Comment on above: Performed By: #### C BC, CMP, ESR #### [facility] [address] NRBC% 0.0 /100{WBC} Normal 0-0.5 [facility] Comment on above: Performed By: #### C BC, CMP, ESR #### [facility] [address] Platelet mean volume (Bld) [Entitic vol] 7.6 fL Normal 6.3-10.7 [facility] Comment on above: Performed By: #### C BC, CMP, ESR #### [facility] [address] [place] [address] [place] Platelets (Bld) [#/Vol] 368 10*3/uL Normal 150-450 [facility] Comment on above: Performed By: #### C BC, CMP, ESR #### [facility] [address] [place] [address] [place] RBC (Bld) [#/Vol] 4.45 10*6/uL Normal 3.60-5.00 [facility] Comment on above: Performed By: #### C BC, CMP, ESR #### [facility] [address] WBC (Bld) [#/Vol] 7.4 10*3/uL Normal 3.8-11.6 [facility] Comment on above: Performed By: #### C BC, CMP, ESR #### [address] Comprehensive Metabolic Pane nico 12-06-2022 Albumin [Mass/Vol] 4.6 g/dL Normal 3.5-5.7 [facility] Comment on above: Performed By: #### C BC, CMP, ESR #### [facility] [address] Albumin/Globulin [Mass ratio] 1.9 {ratio} Normal [facility] Comment on above: Performed By: #### C BC, CMP, ESR #### [address] ALP [Catalytic activity/Vol] 79 U/L Normal 34-104 [facility] Comment on above: Result Comment: PERF ORMED BY: [place] [address] PATHOLOGIST [employer] MANAGER FELICIANO PIERCE M.D. Performed By: #### C BC, CMP, ESR #### [address] ALT [Catalytic activity/Vol] 12 U/L Normal 7-52 [facility] Comment on above: Performed By: #### C BC, CMP, ESR #### [address] Anion gap [Moles/Vol] 10.1 mmol/L Normal 6.0-15.0 [facility] Comment on above: Performed By: #### C BC, CMP, ESR #### [address] AST [Catalytic activity/Vol] 15 U/L Normal 13-39 [facility] Comment on above: Performed By: #### C BC, CMP, ESR #### [facility] [address] Bilirubin [Mass/Vol] 0.3 mg/dL Normal 0.3-1.0 [facility] Comment on above: Performed By: #### C SANTINO GALLAGHER, ESR #### [facility] [address] Calcium [Mass/Vol] 9.6 mg/dL Normal 8.6-10.3 [facility] Comment on above: Performed By: #### C ELLIOTT CMP, ESR #### [facility] [address] Chloride [Moles/Vol] 105 mmol/L Normal 98-107 [facility] Comment on above: Performed By: #### C ELLIOTT CMP, ESR #### [facility] [address] CO2 [Moles/Vol] 29.0 mmol/L Normal 21.0-31.0 [facility] Comment on above: Performed By: #### C ELLIOTT CMP, ESR #### [facility] [address] Creatinine [Mass/Vol] 0.89 mg/dL Normal 0.60-1.20 [facility] Comment on above: Performed By: #### C SANTINO GALLAGHER, ESR #### [facility] [address] [place] [address] [place] GFR/1.73 sq M.predicted MDRD (S/P/Bld) [Vol rate/Area] mL/min/{1.73_m2} [facility] Comment on above: Performed By: #### C ELLIOTT CMP, ESR #### [facility] [address] [place] [address] [place] Globulin (S) [Mass/Vol] 2.4 g/dL Normal [facility] Comment on above: Performed By: #### C ELLIOTT CMP, ESR #### [facility] [address] [place] [address] [place] Glucose [Mass/Vol] 83 mg/dL Normal 70-100 [facility] Comment on above: Result Comment: [facility] Glucose Reference Range is dependent on time and content of last meal. Glucose of more than 200 mg/dL in a nonstressed, ambulatory subject supports the diagnosis of Diabetes Mellitus. ADA recommended reference range Performed By: #### C BC, CMP, ESR #### [facility] [address] Potassium [Moles/Vol] 4.1 mmol/L Normal 3.5-5.1 [facility] Comment on above: Performed By: #### C BC, CMP, ESR #### [facility] [address] Protein [Mass/Vol] 7.0 g/dL Normal 6.4-8.9 [facility] Comment on above: Performed By: #### C BC, CMP, ESR #### [facility] [address] Sodium [Moles/Vol] 140 mmol/L Normal 136-145 [facility] Comment on above: Performed By: #### C BC, CMP, ESR #### [facility] [address] [place] [address] [place] Urea nitrogen [Mass/Vol] 15 mg/dL Normal 7-25 [facility] Comment on above: Performed By: #### C BC, CMP, ESR #### [facility] [address] Creatinine [Mass/volume] in Serum or PlasmaOrdered By: Yayo Taylor on 12-06-2022 Creatinine [Mass/Vol] 0.89 mg/dL 0.60-1.20 [facility] Eosinophils Auto (Bld) [#/Vo l]Ordered By: Yayo Taylor on 12-06-2022 Eosinophils (Bld) [#/Vol] 0.2 10*3/uL 0.0-0.45 [facility] Eosinophils/100 WBC Auto (Bl d)Ordered By: Yayo Taylor on 12-06-2022 Eosinophils/100 WBC (Bld) 2.7 % . [facility] Erythrocyte Sedimentation Ra cristela 12-06-2022 ESR (Bld) [Velocity] 27 mm/h Normal 0-29 [facility] Comment on above: Result Comment: PERF ORMED BY: [facility] [address] [place] [address] PATHOLOGIST [employer] MANAGER FELICIANO PIERCE M.D. Performed By: #### C BC, CMP, ESR #### [facility] [address] Erythrocyte distribution wid th Auto (RBC) [Ratio]Ordered By: Yayo Taylor on 12-06-2022 Erythrocyte distribution width (RBC) [Ratio] 14.2 % 11.9-15.3 [facility] Erythrocyte sedimentation ra te by Photometric methodOrdered By: Yayo Taylor on 12-06-2022 ESR Photometric method (Bld) [Velocity] 27 mm/hr 0-29 [facility] Globulin Calc (S) [Mass/Vol] Ordered By: Yayo Taylor on 12-06-2022 Globulin (S) [Mass/Vol] 2.4 g/dL [facility] Glucose [Mass/volume] in Ser um or PlasmaOrdered By: Yayo Taylor on 12-06-2022 Glucose [Mass/Vol] 83 mg/dL 70-100 [facility] Comment on above: ADA recommended refe rence rangeRandom Glucose Reference Range is dependent on time and content of last meal. Glucose of more than 200 mg/dL in a nonstressed, ambulatory subject supports the diagnosis of Diabetes Mellitus. Hematocrit Auto (Bld) [Volum e fraction]Ordered By: Yayo aTylor on 12-06-2022 Hematocrit (Bld) [Volume fraction] 38.4 % 34.0-46.4 [facility] Hemoglobin [Mass/volume] in BloodOrdered By: Yayo Taylor on 12-06-2022 Hemoglobin (Bld) [Mass/Vol] 12.7 g/dL 11.8-15.4 [facility] Leukocytes [#/volume] correc jin for nucleated erythrocytes in Blood by Automated counOrdered By: Yayo Taylor on 12-06-2022 WBC corrected for nucl RBC Auto (Bld) [#/Vol] 7.4 10*3/uL 3.8-11.6 [facility] Lymphocytes Auto (Bld) [#/Vo l]Ordered By: Yayo Taylor on 12-06-2022 Lymphocytes (Bld) [#/Vol] 2.4 10*3/uL 1.00-4.8 [facility] Lymphocytes/100 WBC Auto (Bl d)Ordered By: Yayo Taylor on 12-06-2022 Lymphocytes/100 WBC (Bld) 32.4 % . [facility] MCH Auto (RBC) [Entitic mass ]Ordered By: Yayo Taylor on 12-06-2022 MCH (RBC) [Entitic mass] 28.5 pg 24.7-34.3 [facility] MCHC Auto (RBC) [Mass/Vol]Or dered By: Yayo Taylor on 12-06-2022 MCHC (RBC) [Mass/Vol] 33.0 g/dL 32.0-35.0 [facility] MCV Auto (RBC) [Entitic vol] Ordered By: Yayo Taylor on 12-06-2022 MCV (RBC) [Entitic vol] 86.3 fL 80-100 [facility] Monocytes Auto (Bld) [#/Vol] Ordered By: Yayo Taylor on 12-06-2022 Monocytes (Bld) [#/Vol] 0.5 10*3/uL 0.0-0.8 [facility] Monocytes/100 WBC Auto (Bld) Ordered By: Yayo Taylor on 12-06-2022 Monocytes/100 WBC (Bld) 6.3 % . [facility] Neutrophils Auto (Bld) [#/Vo l]Ordered By: Yayo Taylor on 12-06-2022 Neutrophils (Bld) [#/Vol] 4.3 10*3/uL 1.8-7.7 [facility] Neutrophils/100 WBC Auto (Bl d)Ordered By: Yayo Taylor on 12-06-2022 Neutrophils/100 WBC (Bld) 58.0 % . [facility] No Panel InformationOrdered By: Yayo Taylor on 12-06-2022 Estimated GFR (CKD-EPI) > 60.0 mL/Min [facility] Creatinine Clearance (Chem N/A [facility] Nucleated erythrocytes [Pres ence] in Blood by Automated countOrdered By: Yayo Taylor on 12-06-2022 Nucleated RBC Auto Ql (Bld) 0.0 /100{WBC} 0-0.5 [facility] Platelet mean volume Auto (B ld) [Entitic vol]Ordered By: Yayo Taylor on 12-06-2022 Platelet mean volume (Bld) [Entitic vol] 7.6 fL 6.3-10.7 [facility] Platelets Auto (Bld) [#/Vol] Ordered By: Yayo Taylor on 12-06-2022 Platelets (Bld) [#/Vol] 368 10*3/uL 150-450 [facility] Potassium [Moles/volume] in Serum or PlasmaOrdered By: Yayo Taylor on 12-06-2022 Potassium [Moles/Vol] 4.1 mmol/L 3.5-5.1 [facility] Protein [Mass/volume] in Ser um or PlasmaOrdered By: Yayo Taylor on 12-06-2022 Protein [Mass/Vol] 7.0 g/dL 6.4-8.9 [facility] RBC Auto (Bld) [#/Vol]Ordere d By: Yayo Taylor on 12-06-2022 RBC (Bld) [#/Vol] 4.45 10*6/uL 3.60-5.00 [facility] Serum or plasma albumin/glob ulin mass ratioOrdered By: Yayo Taylor on 12-06-2022 Albumin/Globulin [Mass ratio] 1.9 {ratio} [facility] Serum or plasma anion gap de terminationOrdered By: Yayo Taylor on 12-06-2022 Anion gap [Moles/Vol] 10.1 mmol/L 6.0-15.0 [facility] Sodium [Moles/volume] in Ser um or PlasmaOrdered By: Yayo Taylor on 12-06-2022 Sodium [Moles/Vol] 140 mmol/L 136-145 [facility] Urea nitrogen [Mass/volume] in Serum or PlasmaOrdered By: Yayo Taylor on 12-06-2022 Urea nitrogen [Mass/Vol] 15 mg/dL 7-25 [facility] WBC Auto (Bld) [#/Vol]Ordere d By: Yayo Taylor on 12-06-2022 WBC (Bld) [#/Vol] 7.4 10*3/uL 3.8-11.6 [facility] Alanine aminotransferase [En zymatic activity/volume] in Serum or PlasmaOrdered By: Yayo Taylor on 10-03-2022 ALT [Catalytic activity/Vol] 11 U/L 7-52 [facility] Albumin [Mass/volume] in Ser um or Plasma by Bromocresol green (BCG) dye binding methoOrdered By: Yayo Taylor on 10-03-2022 Albumin BCG dye [Mass/Vol] 4.1 g/dL 3.5-5.7 [facility] Alkaline phosphatase [Enzyma tic activity/volume] in Serum or PlasmaOrdered By: Yayo Taylor on 10-03-2022 ALP [Catalytic activity/Vol] 84 U/L 34-104 [facility] Aspartate aminotransferase [ Enzymatic activity/volume] in Serum or PlasmaOrdered By: Yayo Taylor on 10-03-2022 AST [Catalytic activity/Vol] 16 U/L 13-39 [facility] Basophils Auto (Bld) [#/Vol] Ordered By: Yayo Taylor on 10-03-2022 Basophils (Bld) [#/Vol] 0.1 10*3/uL 0.0-0.2 [facility] Basophils/100 WBC Auto (Bld) Ordered By: Yayo Taylor on 10-03-2022 Basophils/100 WBC (Bld) 0.9 % . [facility] Bilirubin.total [Mass/volume ] in Serum or PlasmaOrdered By: Yayo Taylor on 10-03-2022 Bilirubin [Mass/Vol] 0.3 mg/dL 0.3-1.0 [facility] Calcium [Mass/volume] in Ser um or PlasmaOrdered By: Yayo Taylor on 10-03-2022 Calcium [Mass/Vol] 8.5 mg/dL 8.6-10.3 [facility] Carbon dioxide, total [Moles /volume] in Serum or PlasmaOrdered By: Yayo Taylor on 10-03-2022 CO2 [Moles/Vol] 27.2 mmol/L 21.0-31.0 [facility] Chloride [Moles/volume] in S dot or PlasmaOrdered By: Yayo Taylor on 10-03-2022 Chloride [Moles/Vol] 106 mmol/L 98-107 [facility] Complete Blood Count Auto Di ffon 10-03-2022 Basophils (Bld) [#/Vol] 0.1 10*3/uL Normal 0.0-0.2 [facility] Comment on above: Performed By: #### C BC, CMP, ESR #### [facility] [address] Basophils/100 WBC (Bld) 0.9 % Normal . [facility] Comment on above: Performed By: #### C BC, CMP, ESR #### [facility] [address] Eosinophils (Bld) [#/Vol] 0.4 10*3/uL Normal 0.0-0.45 [facility] Comment on above: Performed By: #### C BC, CMP, ESR #### [facility] [address] Eosinophils/100 WBC (Bld) 5.0 % Normal . [facility] Comment on above: Performed By: #### C BC, CMP, ESR #### [facility] [address] Erythrocyte distribution width (RBC) [Ratio] 14.7 % Normal 11.9-15.3 [facility] Comment on above: Performed By: #### C BC, CMP, ESR #### [facility] [address] Hematocrit (Bld) [Volume fraction] 36.3 % Normal 34.0-46.4 [facility] Comment on above: Performed By: #### C BC, CMP, ESR #### [facility] [address] Hemoglobin (Bld) [Mass/Vol] 12.3 g/dL Normal 11.8-15.4 [facility] Comment on above: Performed By: #### C BC, CMP, ESR #### [place] [address] [place] Lymphocytes (Bld) [#/Vol] 2.1 10*3/uL Normal 1.00-4.8 [facility] Comment on above: Performed By: #### C BC, CMP, ESR #### [facility] [address] [place] [address] [place] Lymphocytes/100 WBC (Bld) 29.3 % Normal . [facility] Comment on above: Performed By: #### C BC, CMP, ESR #### [facility] [address] [place] [address] [place] MCH (RBC) [Entitic mass] 29.4 pg Normal 24.7-34.3 [facility] Comment on above: Performed By: #### C BC, CMP, ESR #### [address] MCV (RBC) [Entitic vol] 86.4 fL Normal 80-100 [facility] Comment on above: Performed By: #### C BC, CMP, ESR #### [address] Mean Corpuscular HGB Conc 34.0 g/dL Normal 32.0-35.0 [facility] Comment on above: Performed By: #### C BC, CMP, ESR #### [place] [address] [place] Monocytes (Bld) [#/Vol] 0.5 10*3/uL Normal 0.0-0.8 [facility] Comment on above: Performed By: #### C BC, CMP, ESR #### [place] [address] [place] Monocytes/100 WBC (Bld) 7.3 % Normal . [facility] Comment on above: Performed By: #### C BC, CMP, ESR #### [place] [address] [place] Neutrophils (Bld) [#/Vol] 4.1 10*3/uL Normal 1.8-7.7 [facility] Comment on above: Performed By: #### C BC, CMP, ESR #### [facility] [address] Neutrophils/100 WBC (Bld) 57.5 % Normal . [facility] Comment on above: Performed By: #### C BC, CMP, ESR #### [facility] [address] NRBC% 0.3 /100{WBC} Normal 0-0.5 [facility] Comment on above: Performed By: #### C BC, CMP, ESR #### [facility] [address] Platelet mean volume (Bld) [Entitic vol] 7.9 fL Normal 6.3-10.7 [facility] Comment on above: Performed By: #### C BC, CMP, ESR #### [facility] [address] Platelets (Bld) [#/Vol] 369 10*3/uL Normal 150-450 [facility] Comment on above: Performed By: #### C BC, CMP, ESR #### [facility] [address] RBC (Bld) [#/Vol] 4.20 10*6/uL Normal 3.60-5.00 [facility] Comment on above: Performed By: #### C BC, CMP, ESR #### [facility] [address] WBC (Bld) [#/Vol] 7.1 10*3/uL Normal 3.8-11.6 [facility] Comment on above: Performed By: #### C BC, CMP, ESR #### [facility] [address] Comprehensive Metabolic Pane nico 10-03-2022 Albumin [Mass/Vol] 4.1 g/dL Normal 3.5-5.7 [facility] Comment on above: Performed By: #### C BC, CMP, ESR #### [facility] [address] Albumin/Globulin [Mass ratio] 1.6 {ratio} Normal [facility] Comment on above: Performed By: #### C BC, CMP, ESR #### [facility] [address] ALP [Catalytic activity/Vol] 84 U/L Normal 34-104 [facility] Comment on above: Result Comment: PERF ORMED BY: [place] [address] PATHOLOGIST [employer] MANAGER FELICIANO PIERCE M.D. Performed By: #### C BC, CMP, ESR #### [facility] [address] ALT [Catalytic activity/Vol] 11 U/L Normal 7-52 [facility] Comment on above: Performed By: #### C BC, CMP, ESR #### [facility] [address] Anion gap [Moles/Vol] 10.7 mmol/L Normal 6.0-15.0 [facility] [facility] Comment on above: Performed By: #### C BC, CMP, ESR #### [facility] [address] AST [Catalytic activity/Vol] 16 U/L Normal 13-39 [facility] Comment on above: Performed By: #### C BC, CMP, ESR #### [facility] [address] Bilirubin [Mass/Vol] 0.3 mg/dL Normal 0.3-1.0 [facility] Comment on above: Performed By: #### C BC, CMP, ESR #### [facility] [address] Calcium [Mass/Vol] 8.5 mg/dL Low 8.6-10.3 [facility] Comment on above: Performed By: #### C BC, CMP, ESR #### [facility] [address] [place] [address] [place] Chloride [Moles/Vol] 106 mmol/L Normal 98-107 [facility] Comment on above: Performed By: #### C BC, CMP, ESR #### [facility] [address] [place] [address] [place] CO2 [Moles/Vol] 27.2 mmol/L Normal 21.0-31.0 [facility] Comment on above: Performed By: #### C BC CMP, ESR #### [facility] [address] [place] [id number] [place] Creatinine [Mass/Vol] 0.88 mg/dL Normal 0.60-1.20 [facility] Comment on above: Performed By: #### C BC, CMP, ESR #### [facility] [address] [place] [address] [place] GFR/1.73 sq M.predicted MDRD (S/P/Bld) [Vol rate/Area] mL/min/{1.73_m2} [facility] Comment on above: Performed By: #### C ELLIOTT CMP, ESR #### [facility] [address] Globulin (S) [Mass/Vol] 2.6 g/dL Normal [facility] Comment on above: Performed By: #### C ELLIOTT CMP, ESR #### [facility] [address] Glucose [Mass/Vol] 98 mg/dL Normal 70-100 [facility] Comment on above: Result Comment: [facility] Glucose Reference Range is dependent on time and content of last meal. Glucose of more than 200 mg/dL in a nonstressed, ambulatory subject supports the diagnosis of Diabetes Mellitus. ADA recommended reference range Performed By: #### C BC, CMP, ESR #### [facility] [address] [place] [id number] [place] Potassium [Moles/Vol] 3.9 mmol/L Normal 3.5-5.1 [facility] Comment on above: Performed By: #### C BC, CMP, ESR #### [facility] [address] [place] [id number] [place] Protein [Mass/Vol] 6.7 g/dL Normal 6.4-8.9 [facility] Comment on above: Performed By: #### C BC, CMP, ESR #### [facility] [address] Sodium [Moles/Vol] 140 mmol/L Normal 136-145 [facility] Comment on above: Performed By: #### C BC, CMP, ESR #### [facility] [address] Urea nitrogen [Mass/Vol] 20 mg/dL Normal 7-25 [facility] Comment on above: Performed By: #### C BC, CMP, ESR #### [facility] [address] Creatinine [Mass/volume] in Serum or PlasmaOrdered By: Yayo Taylor on 10-03-2022 Creatinine [Mass/Vol] 0.88 mg/dL 0.60-1.20 [facility] Eosinophils Auto (Bld) [#/Vo l]Ordered By: Yayo Taylor on 10-03-2022 Eosinophils (Bld) [#/Vol] 0.4 10*3/uL 0.0-0.45 [facility] Eosinophils/100 WBC Auto (Bl d)Ordered By: Yayo Taylor on 10-03-2022 Eosinophils/100 WBC (Bld) 5.0 % . [facility] Erythrocyte Sedimentation Ra cristela 10-03-2022 ESR (Bld) [Velocity] 22 mm/h Normal 0-29 [facility] Comment on above: Result Comment: PERF ORMED BY: [place] [address] PATHOLOGIST [employer]GER FELICIANO PIERCE M.D. Performed By: #### C BC, CMP, ESR #### [facility] [address] Erythrocyte distribution wid th Auto (RBC) [Ratio]Ordered By: Yayo Taylor on 10-03-2022 Erythrocyte distribution width (RBC) [Ratio] 14.7 % 11.9-15.3 [facility] Erythrocyte sedimentation ra te by Photometric methodOrdered By: Yayo Taylor on 10-03-2022 ESR Photometric method (Bld) [Velocity] 22 mm/hr 0-29 [facility] Globulin Calc (S) [Mass/Vol] Ordered By: Yayo Taylor on 10-03-2022 Globulin (S) [Mass/Vol] 2.6 g/dL [facility] Glucose [Mass/volume] in Ser um or PlasmaOrdered By: Yayo Taylor on 10-03-2022 Glucose [Mass/Vol] 98 mg/dL 70-100 [facility] Comment on above: ADA recommended refe rence rangeRandom Glucose Reference Range is dependent on time and content of last meal. Glucose of more than 200 mg/dL in a nonstressed, ambulatory subject supports the diagnosis of Diabetes Mellitus. Hematocrit Auto (Bld) [Volum e fraction]Ordered By: Yayo Taylor on 10-03-2022 Hematocrit (Bld) [Volume fraction] 36.3 % 34.0-46.4 [facility] Hemoglobin [Mass/volume] in BloodOrdered By: Yayo Taylor on 10-03-2022 Hemoglobin (Bld) [Mass/Vol] 12.3 g/dL 11.8-15.4 [facility] Leukocytes [#/volume] correc jin for nucleated erythrocytes in Blood by Automated counOrdered By: Yayo Taylor on 10-03-2022 WBC corrected for nucl RBC Auto (Bld) [#/Vol] 7.1 10*3/uL 3.8-11.6 [facility] Lymphocytes Auto (Bld) [#/Vo l]Ordered By: Yayo Taylor on 10-03-2022 Lymphocytes (Bld) [#/Vol] 2.1 10*3/uL 1.00-4.8 [facility] Lymphocytes/100 WBC Auto (Bl d)Ordered By: Yayo Taylor on 10-03-2022 Lymphocytes/100 WBC (Bld) 29.3 % . [facility] MCH Auto (RBC) [Entitic mass ]Ordered By: Yayo Taylor on 10-03-2022 MCH (RBC) [Entitic mass] 29.4 pg 24.7-34.3 [facility] MCHC Auto (RBC) [Mass/Vol]Or dered By: Yayo Taylor on 10-03-2022 MCHC (RBC) [Mass/Vol] 34.0 g/dL 32.0-35.0 [facility] MCV Auto (RBC) [Entitic vol] Ordered By: Yayo Taylor on 10-03-2022 MCV (RBC) [Entitic vol] 86.4 fL 80-100 [facility] Monocytes Auto (Bld) [#/Vol] Ordered By: Yayo Taylor on 10-03-2022 Monocytes (Bld) [#/Vol] 0.5 10*3/uL 0.0-0.8 [facility] Monocytes/100 WBC Auto (Bld) Ordered By: Yayo Taylor on 10-03-2022 Monocytes/100 WBC (Bld) 7.3 % . [facility] Neutrophils Auto (Bld) [#/Vo l]Ordered By: Yayo Taylor on 10-03-2022 Neutrophils (Bld) [#/Vol] 4.1 10*3/uL 1.8-7.7 [facility] Neutrophils/100 WBC Auto (Bl d)Ordered By: Yayo Taylor on 10-03-2022 Neutrophils/100 WBC (Bld) 57.5 % . [facility] No Panel InformationOrdered By: Yayo Taylor on 10-03-2022 Estimated GFR (CKD-EPI) > 60.0 mL/Min [facility] Creatinine Clearance (Chem N/A [facility] Nucleated erythrocytes [Pres ence] in Blood by Automated countOrdered By: Yayo Taylor on 10-03-2022 Nucleated RBC Auto Ql (Bld) 0.3 /100{WBC} 0-0.5 [facility] Platelet mean volume Auto (B ld) [Entitic vol]Ordered By: Yayo Taylor on 10-03-2022 Platelet mean volume (Bld) [Entitic vol] 7.9 fL 6.3-10.7 [facility] Platelets Auto (Bld) [#/Vol] Ordered By: Yayo Taylor on 10-03-2022 Platelets (Bld) [#/Vol] 369 10*3/uL 150-450 [facility] Potassium [Moles/volume] in Serum or PlasmaOrdered By: Yayo Taylor on 10-03-2022 Potassium [Moles/Vol] 3.9 mmol/L 3.5-5.1 [facility] Protein [Mass/volume] in Ser um or PlasmaOrdered By: Yayo Taylor on 10-03-2022 Protein [Mass/Vol] 6.7 g/dL 6.4-8.9 [facility] RBC Auto (Bld) [#/Vol]Ordere d By: Yayo Taylor on 10-03-2022 RBC (Bld) [#/Vol] 4.20 10*6/uL 3.60-5.00 [facility] Serum or plasma albumin/glob ulin mass ratioOrdered By: Yayo Taylor on 10-03-2022 Albumin/Globulin [Mass ratio] 1.6 {ratio} [facility] Serum or plasma anion gap de terminationOrdered By: Yayo Taylor on 10-03-2022 Anion gap [Moles/Vol] 10.7 mmol/L 6.0-15.0 [facility] Sodium [Moles/volume] in Ser um or PlasmaOrdered By: Yayo Taylor on 10-03-2022 Sodium [Moles/Vol] 140 mmol/L 136-145 [facility] Urea nitrogen [Mass/volume] in Serum or PlasmaOrdered By: Yayo Taylor on 10-03-2022 Urea nitrogen [Mass/Vol] 20 mg/dL 7-25 [facility] WBC Auto (Bld) [#/Vol]Ordere d By: Yayo Taylor on 10-03-2022 WBC (Bld) [#/Vol] 7.1 10*3/uL 3.8-11.6 [facility] US BREAST RIGHT LIMITEDon US BREAST RIGHT LIMITED Patient: MONET ORTEGA Exam Date: 08/18/2022 : 1970 Gender:F Ordering : TONI ROMERO CNP Admission #: [id number] Family : Order #: [id number] CLICK HERE TO VIEW EXAM RADIOLOGY REPORT [...] MD on 08/18/2022 at 09:07 Normal [facility] CBC AUTO DIFFon 06-07-2022 BASO # 0.0 103/ul Normal 0.0-0.1 [facility] Comment on above: Performed By: #### A ST, ALT, LIPID #### [facility] [address] [place] [address] Dr. Luis Daniel Sin Basophils/100 WBC (Bld) 0.4 % Normal 0.2-2.0 [facility] Comment on above: Performed By: #### A ST, ALT, LIPID #### [facility] [address] [place] [address] Dr. Luis Dnaiel Sin EO # 0.2 103/ul Normal 0.0-0.7 [facility] Comment on above: Performed By: #### A ST, ALT, LIPID #### [facility] [address] [place] [address] Dr. Luis Daniel Sin Eosinophils/100 WBC (Bld) 2.3 % Normal 0.9-7.0 [facility] Comment on above: Performed By: #### A ST, ALT, LIPID #### [facility] [address] [place] [address] Dr. Luis Daniel Sin Erythrocyte distribution width (RBC) [Ratio] 13.7 % Normal 11.0-15.0 [facility] Comment on above: Performed By: #### A ST, ALT, LIPID #### [facility] [address] [place] [address] Dr. Luis Daniel Sin Hematocrit (Bld) [Volume fraction] 37.3 % Normal 36.0-48.0 [facility] Comment on above: Performed By: #### A ST, ALT, LIPID #### [facility] [address] [place] [address] [address] Luis Daniel Sin Hemoglobin (Bld) [Mass/Vol] 12.3 g/dL Normal 12.0-16.0 [facility] Comment on above: Performed By: #### A ST, ALT, LIPID #### [facility] [address] [place] [address] Dr. Luis Daniel Sin IG # 0.02 10e3/ul Normal 0.00-0.03 [facility] Comment on above: Performed By: #### A ST, ALT, LIPID #### [facility] [address] [place] [address] Dr. Luis Daniel Sin IG % 0.2 % Normal 0.0-0.5 [facility] Comment on above: Performed By: #### A ST, ALT, LIPID #### [facility] [address] [place] [address] Dr. Luis Daniel Sin LYMPH # 2.9 103/ul Normal 1.2-3.8 [facility] Comment on above: Performed By: #### A ST, ALT, LIPID #### [facility] [address] [place] [address] Dr. Luis Daniel Sin Lymphocytes/100 WBC (Bld) 31.8 % Normal 20.5-60.0 [facility] Comment on above: Performed By: #### A ST, ALT, LIPID #### [facility] [address] [place] [address] Dr. Luis Daniel Sin MANUAL DIFF REQ NO Normal [facility] Comment on above: Performed By: #### A ST, ALT, LIPID #### [facility] [address] [place] [address] Dr. Luis Daniel Sin MCH (RBC) [Entitic mass] 28.1 pg Normal 26.7-34.0 [facility] Comment on above: Performed By: #### A ST, ALT, LIPID #### [facility] [address] [address] [address] Luis Daniel Sin MCHC (RBC) [Mass/Vol] 33.0 g/dL Normal 29.9-35.2 [facility] Comment on above: Performed By: #### A ST, ALT, LIPID #### [facility] [address] [address] [address] Luis Daniel Sin MCV (RBC) [Entitic vol] 85.2 fL Normal 81.0-99.0 [facility] Comment on above: Performed By: #### A ST, ALT, LIPID #### [facility] [address] [place] [address] [address] Luis Daniel Sin MONO # 0.8 103/ul Normal 0.3-0.8 [facility] Comment on above: Performed By: #### A ST, ALT, LIPID #### [facility] [address] [place] [address] Dr. Luis Daniel Sin Monocytes/100 WBC (Bld) 8.4 % Normal 1.7-12.0 [facility] Comment on above: Performed By: #### A ST, ALT, LIPID #### [facility] [address] [place] [address] [address] Luis Daniel Sin NEUT # 5.1 103/ul Normal 1.4-6.5 [facility] Comment on above: Performed By: #### A ST, ALT, LIPID #### [facility] [address] [place] [address] [address] Luis Daniel Sin Neutrophils/100 WBC (Bld) 56.9 % Normal 43.0-75.0 [facility] Comment on above: Performed By: #### A ST, ALT, LIPID #### [facility] [address] [place] [address] [address] Luis Daniel Sin Platelet mean volume (Bld) [Entitic vol] 9.0 fL Critically low 9.5-13.5 [facility] Comment on above: Performed By: #### A ST, ALT, LIPID #### [facility] [address] [address] [address] Luis Daniel Sin PLT 353 103/ul Normal 150-450 [facility] Comment on above: Performed By: #### A ST, ALT, LIPID #### [facility] [address] [place] [address] [address] Luis Daniel Sin RBC 4.38 106/ul Normal 4.20-5.40 [facility] Comment on above: Performed By: #### A ST, ALT, LIPID #### [facility] [address] [address] [address] Luis Daniel Sin WBC 9.0 103/ul Normal 4.0-11.0 [facility] Comment on above: Performed By: #### A ST, ALT, LIPID #### [facility] [address] [address] [address] Luis Daniel Sin PROF 14(COMP METB)on 022 Albumin [Mass/Vol] 3.9 g/dL Normal 3.4-5.0 [facility] Comment on above: Performed By: #### C MP #### [facility] [address] [place] [address] Dr. Luis Daniel Sin Albumin/Globulin [Mass ratio] 1.0 {ratio} Normal [facility] Comment on above: Performed By: #### C MP #### [facility] [address] [place] [address] Dr. Luis Daniel Sin ALP [Catalytic activity/Vol] 94 U/L Normal 46-116 [facility] Comment on above: Performed By: #### C MP #### [facility] [address] [address] [address] Luis Daniel Sin ALT [Catalytic activity/Vol] 18 U/L Normal 14-59 [facility] Comment on above: Performed By: #### C MP #### [facility] [address] [address] [address] Luis Daniel Sin Anion gap [Moles/Vol] 12.2 mmol/L Normal [facility] Comment on above: Performed By: #### C MP #### [facility] [address] [place] [address] Dr. Luis Daniel Sin AST [Catalytic activity/Vol] 19 U/L Normal 15-37 [facility] Comment on above: Performed By: #### C MP #### [facility] [address] [address] [address] Luis Daniel Sin Bilirubin [Mass/Vol] 0.3 mg/dL Normal 0.2-1.0 [facility] Comment on above: Performed By: #### C MP #### [facility] [address] [address] [address] Luis Daniel Sin Calcium [Mass/Vol] 9.3 mg/dL Normal 8.5-10.1 [facility] Comment on above: Performed By: #### C MP #### [facility] [address] [address] [address] Luis Daniel Sin Chloride [Moles/Vol] 102 mmol/L Normal 98-107 [facility] Comment on above: Performed By: #### C MP #### [facility] [address] [address] [address] Luis Daniel Sin CO2 [Moles/Vol] 29.5 mmol/L Normal 21.0-32.0 [facility] Comment on above: Performed By: #### C MP #### [facility] [address] [address] [address] Luis Daniel Sin Creatinine [Mass/Vol] 0.93 mg/dL Normal 0.55-1.02 [facility] Comment on above: Performed By: #### C MP #### [facility] [address] [address] [address] Luis Daniel Sin EGFR-AF OMANI >60 Normal >=60 [facility] Comment on above: Performed By: #### C MP #### [facility] [address] [address] [address] Luis Daniel Sin EGFR-NON AF OMANI >60 Normal >=60 [facility] Comment on above: Performed By: #### C MP #### [facility] [address] [address] [address] Luis Daniel Sin Globulin (S) [Mass/Vol] 3.8 g/dL Normal [facility] Comment on above: Performed By: #### C MP #### [facility] [address] [address] [address] Luis Daniel Sin Glucose [Mass/Vol] 100 mg/dL Normal 74-106 [facility] Comment on above: Performed By: #### C MP #### [facility] [address] [address] [address] Luis Daniel Sin Potassium [Moles/Vol] 3.7 mmol/L Normal 3.5-5.1 [facility] Comment on above: Performed By: #### C MP #### [facility] [address] [address] [address] Luis Daniel Sin Protein [Mass/Vol] 7.7 g/dL Normal 6.4-8.2 [facility] Comment on above: Performed By: #### C MP #### [facility] [address] [address] [address] Luis Daniel Sin Sodium [Moles/Vol] 140 mmol/L Normal 136-145 [facility] Comment on above: Performed By: #### C MP #### [facility] [address] [address] [address] Luis Daniel Sin Urea nitrogen [Mass/Vol] 18.0 mg/dL Normal 7.0-18.0 [facility] Comment on above: Performed By: #### C MP #### [facility] [address] [address] [address] Luis Daniel Sin Urea nitrogen/Creatinine [Mass ratio] 19.4 mg/mg Normal [facility] Comment on above: Performed By: #### C MP #### [facility] [address] [address] [address] Luis Daniel Sin [facility] SED [facility]ATE 54 mm/hr Critically high <=30 [facility] Comment on above: Performed By: #### A ST, ALT, LIPID #### [facility] [address] [address] [address] Luis Daniel Sin CBC AUTO DIFFon 02-25-2022 BASO # 0.1 103/ul Normal 0.0-0.1 [facility] Comment on above: Performed By: #### C BC #### [facility] [address] [place] [address] Dr. Luis Daniel Sin Basophils/100 WBC (Bld) 0.7 % Normal 0.2-2.0 [facility] Comment on above: Performed By: #### C BC #### [facility] [address] [place] [address] Dr. Luis Daniel Sin EO # 0.2 103/ul Normal 0.0-0.7 [facility] Comment on above: Performed By: #### C BC #### [facility] [address] [place] [address] Dr. Luis Daniel Sin Eosinophils/100 WBC (Bld) 2.5 % Normal 0.9-7.0 [facility] Comment on above: Performed By: #### C BC #### [facility] [address] [place] [address] Dr. Luis Daniel Sin Erythrocyte distribution width (RBC) [Ratio] 14.2 % Normal 11.0-15.0 [facility] Comment on above: Performed By: #### C BC #### [facility] [address] [place] [address] Dr. Luis Daniel Sin Hematocrit (Bld) [Volume fraction] 41.1 % Normal 36.0-48.0 [facility] Comment on above: Performed By: #### C BC #### [facility] [address] [place] [address] Dr. Luis Daniel Sin Hemoglobin (Bld) [Mass/Vol] 13.5 g/dL Normal 12.0-16.0 [facility] Comment on above: Performed By: #### C BC #### [facility] [address] [place] [address] Dr. Luis Daniel Sin IG # 0.03 10e3/ul Normal 0.00-0.03 [facility] Comment on above: Performed By: #### C BC #### [facility] [address] [place] [address] Dr. Luis Daniel Sin IG % 0.4 % Normal 0.0-0.5 [facility] Comment on above: Performed By: #### C BC #### [facility] [address] [address] [address] Luis Daniel Sin LYMPH # 2.2 103/ul Normal 1.2-3.8 [facility] Comment on above: Performed By: #### C BC #### [facility] [address] [address] [address] Luis Daniel Sin Lymphocytes/100 WBC (Bld) 26.0 % Normal 20.5-60.0 [facility] Comment on above: Performed By: #### C BC #### [facility] [address] [place] [address] Dr. Luis Daniel Sin MANUAL DIFF REQ NO Normal [facility] Comment on above: Performed By: #### C BC #### [facility] [address] [place] [address] Dr. Luis Daniel Sin MCH (RBC) [Entitic mass] 28.6 pg Normal 26.7-34.0 [facility] Comment on above: Performed By: #### C BC #### [facility] [address] [place] [address] Dr. Luis Daniel Sin MCHC (RBC) [Mass/Vol] 32.8 g/dL Normal 29.9-35.2 [facility] Comment on above: Performed By: #### C BC #### [facility] [address] [place] [address] Dr. Luis Daniel Sin MCV (RBC) [Entitic vol] 87.1 fL Normal 81.0-99.0 [facility] Comment on above: Performed By: #### C BC #### [facility] [address] [place] [address] Dr. Luis Daniel Sin MONO # 0.6 103/ul Normal 0.3-0.8 [facility] Comment on above: Performed By: #### C BC #### [facility] [address] [place] [address] Dr. Luis Daniel Sin Monocytes/100 WBC (Bld) 6.8 % Normal 1.7-12.0 [facility] Comment on above: Performed By: #### C BC #### [facility] [address] [place] [address] Dr. Luis Daniel Sin NEUT # 5.3 103/ul Normal 1.4-6.5 [facility] Comment on above: Performed By: #### C BC #### [facility] [address] [place] [address] Dr. Luis Daniel Sin Neutrophils/100 WBC (Bld) 63.6 % Normal 43.0-75.0 [facility] Comment on above: Performed By: #### C BC #### [facility] [address] [place] [address] Dr. Luis Daniel Sin Platelet mean volume (Bld) [Entitic vol] 9.5 fL Normal 9.5-13.5 [facility] Comment on above: Performed By: #### C BC #### [facility] [address] [place] [address] Dr. Luis Daniel Sin PLT 364 103/ul Normal 150-450 [facility] Comment on above: Performed By: #### C BC #### [facility] [address] [place] [address] Dr. Luis Daniel Sin RBC 4.72 106/ul Normal 4.20-5.40 [facility] Comment on above: Performed By: #### C BC #### [facility] [address] [place] [address] Dr. Luis Daniel Sin WBC 8.3 103/ul Normal 4.0-11.0 [facility] Comment on above: Performed By: #### C BC #### [facility] [address] [place] [address] [address] CHEST WO [...] TODD JACOBS Date: 2022-02-25 18:07 Normal [facility] PROF 14(COMP METB)on 022 Albumin [Mass/Vol] 3.6 g/dL Normal 3.4-5.0 [facility] Comment on above: Performed By: #### C MP #### [facility] [address] [place] [address] Dr. Luis Daniel Sin Albumin/Globulin [Mass ratio] 0.9 {ratio} Normal [facility] Comment on above: Performed By: #### C MP #### [facility] [address] [place] [address] Dr. Luis Daniel Sin ALP [Catalytic activity/Vol] 113 U/L Normal 46-116 [facility] Comment on above: Performed By: #### C MP #### [facility] [address] [place] [address] Dr. Luis Daniel Sin ALT [Catalytic activity/Vol] 17 U/L Normal 14-59 [facility] Comment on above: Performed By: #### C MP #### [facility] [address] [place] [address] Dr. Luis Daniel Sin Anion gap [Moles/Vol] 9.7 mmol/L Normal [facility] Comment on above: Performed By: #### C MP #### [facility] [address] [place] [address] Dr. Luis Daniel Sin AST [Catalytic activity/Vol] 11 U/L Critically low 15-37 [facility] Comment on above: Performed By: #### C MP #### [facility] [facility] [address] [place] [address] Dr. Luis Daniel Sin Bilirubin [Mass/Vol] 0.3 mg/dL Normal 0.2-1.0 [facility] Comment on above: Performed By: #### C MP #### [facility] [address] [address] [address] Luis Daniel Sin Calcium [Mass/Vol] 8.9 mg/dL Normal 8.5-10.1 [facility] Comment on above: Performed By: #### C MP #### [facility] [address] [place] [address] Dr. Luis Daniel Sin Chloride [Moles/Vol] 104 mmol/L Normal 98-107 [facility] Comment on above: Performed By: #### C MP #### [facility] [address] [place] [address] Dr. Luis Daniel Sin CO2 [Moles/Vol] 26.9 mmol/L Normal 21.0-32.0 [facility] Comment on above: Performed By: #### C MP #### [facility] [address] [place] [address] Dr. Luis Daniel Sin Creatinine [Mass/Vol] 0.96 mg/dL Normal 0.55-1.02 [facility] Comment on above: Performed By: #### C MP #### [facility] [address] [place] [address] Dr. Luis Daniel Sin EGFR-AF OMANI >60 Normal >=60 [facility] Comment on above: Performed By: #### C MP #### [facility] [address] [place] [address] Dr. Luis Daniel Sin EGFR-NON AF OMANI >60 Normal >=60 [facility] Comment on above: Performed By: #### C MP #### [facility] [address] [place] [address] Dr. Luis Daniel Sin Globulin (S) [Mass/Vol] 4.0 g/dL Normal [facility] Comment on above: Performed By: #### C MP #### [facility] [address] [address] [address] Luis Daniel Sin Glucose [Mass/Vol] 99 mg/dL Normal 74-106 [facility] Comment on above: Performed By: #### C MP #### [facility] [address] [address] [address] Luis Daniel Sin Potassium [Moles/Vol] 3.6 mmol/L Normal 3.5-5.1 [facility] Comment on above: Performed By: #### C MP #### [facility] [address] [address] [address] Luis Daniel Sin Protein [Mass/Vol] 7.6 g/dL Normal 6.4-8.2 [facility] Comment on above: Performed By: #### C MP #### [facility] [address] [address] [address] Luis Daniel Sin Sodium [Moles/Vol] 137 mmol/L Normal 136-145 [facility] Comment on above: Performed By: #### C MP #### [facility] [address] [address] [address] Luis Daniel Sin Urea nitrogen [Mass/Vol] 12.0 mg/dL Normal 7.0-18.0 [facility] Comment on above: Performed By: #### C MP #### [facility] [address] [address] [address] Luis Daniel Sin Urea nitrogen/Creatinine [Mass ratio] 12.5 mg/mg Normal [facility] Comment on above: Performed By: #### C MP #### [facility] [address] [address] [address] Luis Daniel Sin SED RATE WESTERGRENon 2021 SED RATE 46 mm/hr Critically high <=20 [facility] Comment on above: Performed By: #### A ST, ALT, LIPID #### [facility] [address] [address] [address] Luis Daniel Sin LIPID PROFILEon 02-01-2022 CHOL-HDL RATIO NORM SEE BELOW Normal [facility] Comment on above: Result Comment: 3.3 - 4.4 LOW RISK 4.4 - 7.1 AVERAGE RISK 7.1 - 11.0 MODERATE RISK >11.0 HIGH RISK Performed By: #### A ST, ALT, LIPID #### [facility] [address] [address] [address] Luis Daniel Sin Cholesterol [Mass/Vol] 250 mg/dL Critically high <=200 [facility] Comment on above: Performed By: #### A ST, ALT, LIPID #### [facility] [address] [address] [address] Luis Daniel Sin Cholesterol in HDL [Mass/Vol] 44 mg/dL Normal 40-60 [facility] Comment on above: Performed By: #### A ST, ALT, LIPID #### [facility] [address] [address] [address] Luis Daniel Sin Cholesterol in LDL [Mass/Vol] 162.0 mg/dL Normal [facility] Comment on above: Performed By: #### A ST, ALT, LIPID #### [facility] [address] [address] [address] Luis Daniel Sin Cholesterol.total/Inna sterol in HDL [Mass ratio] 5.7 {ratio} Normal [facility] Comment on above: Performed By: #### A ST, ALT, LIPID #### [facility] [address] [address] [address] Luis Daniel Sin HDL NORMAL > or = 60 mg/dl - LOW CARDIOVASCULAR RISK <40 mg/dl - HIGH CARDIOVASCULAR RISK Normal [facility] Comment on above: Performed By: #### A ST, ALT, LIPID #### [facility] [address] [address] [address] Luis Daniel Sin LDL CALC NORMAL SEE BELOW Normal [facility] Comment on above: Result Comment: <100 mg/dl OPTIMAL 100 - 129 mg/dl NEAR OR ABOVE OPTIMAL 130 - 159 mg/dl BORDERLINE HIGH 160 - 189 mg/dl HIGH >190 mg/dl VERY HIGH Performed By: #### A ST, ALT, LIPID #### [facility] [address] [address] [address] Luis Daniel Sin Triglyceride [Mass/Vol] 220 mg/dL Critically high <=150 [facility] Comment on above: Performed By: #### A ST, ALT, LIPID #### [facility] [address] [address] [address] Luis Daniel Sin VLDL CALC 44.0 mg/dL Normal [facility] Comment on above: Performed By: #### A ST, ALT, LIPID #### [facility] [address] [address] [address] Luis Daniel Sin SGOTon 02-01-2022 AST [Catalytic activity/Vol] 17 U/L Normal 15-37 [facility] Comment on above: Performed By: #### A ST, ALT, LIPID #### [facility] [address] [address] [address] [facility] ALT [Catalytic activity/Vol] 21 U/L Normal 14-59 [facility] Comment on above: Performed By: #### A ST, ALT, LIPID #### [facility] [address] [address] [address] Luis Daniel Sin Patient Correspondenceon Patient Correspondence [id number]#[id number]:127 [facility] Provider Letteron 12-31-2021 Provider Letter December 31, 2021 MONET ORTEGA N [address] [place] [address] MONET ORTEGA N 1970 Dear Monet , This letter is to inform you the providers of [facility], [facility] will no longer be responsible for your routine medical care due to non compliance. Emergency care only will be provided for the thirty (30) days following this letter. During this time period we suggest that you find another physician for your medical needs. A listing of area physicians can be found on [facility]'s website at [email or web address] or you may contact your health plan. We will be glad to forward your records to your new physician as long as we receive a signed release of records form. Sincerely, Dr. Vickie Montiel MD [facility] [address] [place] [address], [place] [address] Normal [facility] LIPID PROFILEon 12-13-2021 CHOL-HDL RATIO NORM SEE BELOW Normal [facility] Comment on above: Result Comment: 3.3 - 4.4 LOW RISK 4.4 - 7.1 AVERAGE RISK 7.1 - 11.0 MODERATE RISK >11.0 HIGH RISK Performed By: #### A ST, ALT, LIPID #### [facility] [address] [place], [place] [address] Dr. Luis Daniel Sin Cholesterol [Mass/Vol] 233 mg/dL Critically high <=200 [facility] Comment on above: Performed By: #### A ST, ALT, LIPID #### [facility] [id number] Luis Daniel Sin Cholesterol in HDL [Mass/Vol] 52 mg/dL Normal 40-60 [facility] Comment on above: Performed By: #### A ST, ALT, LIPID #### [facility] [address] [address] [address] Luis Daniel Sin Cholesterol in LDL [Mass/Vol] 142.6 mg/dL Normal [facility] Comment on above: Performed By: #### A ST, ALT, LIPID #### [facility] [address] [place], [place] [address] Dr. Luis Daniel Sin Cholesterol.total/Inna sterol in HDL [Mass ratio] 4.5 {ratio} Normal [facility] Comment on above: Performed By: #### A ST, ALT, LIPID #### [facility] [id number] Luis Daniel Sin HDL NORMAL > or = 60 mg/dl - LOW CARDIOVASCULAR RISK <40 mg/dl - HIGH CARDIOVASCULAR RISK Normal [facility] Comment on above: Performed By: #### A ST, ALT, LIPID #### [facility] [id number] Luis Daniel Sin LDL CALC NORMAL SEE BELOW Normal [facility] Comment on above: Result Comment: <100 mg/dl OPTIMAL 100 - 129 mg/dl NEAR OR ABOVE OPTIMAL 130 - 159 mg/dl BORDERLINE HIGH 160 - 189 mg/dl HIGH >190 mg/dl VERY HIGH Performed By: #### A ST, ALT, LIPID #### [facility] [address] [place] [address] Dr. Luis Daniel Sin Triglyceride [Mass/Vol] 192 mg/dL Critically high <=150 [facility] Comment on above: Performed By: #### A ST, ALT, LIPID #### [facility] [address] [address] [address] Luis Daniel Sin VLDL CALC 38.4 mg/dL Normal [facility] Comment on above: Performed By: #### A ST, ALT, LIPID #### [facility] [address] [place] [address] Dr. Luis Daniel Sin SGLowelln 12-13-2021 AST [Catalytic activity/Vol] 12 U/L Critically low 15-37 [facility] Comment on above: Performed By: #### A ST, ALT, LIPID #### [facility] [address] [place] [address] Dr. Luis Daniel Sin [facility] 12-13-2021 ALT [Catalytic activity/Vol] 23 U/L Normal 14-59 [facility] Comment on above: Performed By: #### A ST, ALT, LIPID #### [facility] [address] [place] [address] Dr. Luis Daniel Sin Patient Correspondenceon Patient Correspondence [id number] [facility]#1.00CD:127 Normal [facility] Patient Letter FTon 2021 Patient Letter [facility] November 10, 2021 MONET OTREGA [address] [place] [address] MONET ORTEGA 1970 Dear Monet, I am [...] MD [facility] [address] [place] [place] [address] [facility] Provider Letteron 10-19-2021 Provider Letter October 19, 2021 MONET [address] [place] [address] MONET ORTEGA 1970 Dear Jodi , During review of your medical record we noticed you missed your 09/27/21 Cystoscopy appointment. We have attempted to reach you on 09/28/21, 10/05/21, and 10/19/21 to reschedule your procedure with no success. Please call our office today to reschedule this appointment. Sincerely, Dr. Vickie Montiel MD [facility] [address] [place] [place] [address] [facility] RAD - CT Reporton 09-21-[address] RAD - CT Report [id number] [id number]#[id number]:127 [facility] Reminderson 09-21-2021 Reminders --- From: Suzan Collins MA To: EU - Prior Authorization; Sent: 09/15/2021 12:38:12 EDT Show up: 09/16/2021 07:00:00 EDT Subject: sending urine for UA Due Date/Time: 09/16/2021 12:00:00 EDT Reminder/Recall Urine sent to [facility] for UA Per last encounter: Patient denies [...] urine for UA UA was sent to [facility] for micro. I don't see the results in the pt's chart. But when they do get in chart, GURU needs to review them. Scratch that. They were sent to [facility]. Will forward to GURU. [facility] Coding Summary.on 09-17-2021 Coding Summary. CD:[id number] 4BDv6aMo+PGhlYWQ+P D9LZMBmL66riIVrgH0 HX3fPGF3KYONYVFCEA C4PSZ3ywRI1TKyyS7J ybiAv KjkyaLCgWM78XCc7XM X1lApcRBzdnN7koLQf B0f6WuTrRI45kC57TE ymGHRrHhQ7TtVwnjre bWFy T5ifXlLxcOYuYja+PH RhYmxlIHdpZHRoPScx VAAzEzAjsWwiUD7nTl 9yZGVyLWNvbGxhcHNl OiBj v5thIAUcTSjwYL1yrI kxA9LlyXI8HIXdw4w7 Gw49uGE+GOEhXHI6tE yaJWfxs309QhCxd3if IDM3 pJOsWNruQWL3W57zg1 R7AWXjHLNjZNS8mJY2 oG3zbKgelypvB0XyuB VaHiR7WMW6nRLqzJ4h bGln bxqkwV8sQwm+Q09ESU 7NFPAWGX8TBmj8K8Mf PjwvdHI+JK71GDElXC 60uZEghAUyw6ltxLf8 JzEw DZJlJJV8eOnsDWwbp6 AcURQnN66wgALpv7Z1 IGNvbGxhcHNlOyBlbX M5jA9kWGsrlwqrx9ea dzsn Gktck3pxyl45mV82O9 1aCIpxBSYaKIR6MNWc CXEfjOplqg0kyH0xSw 8+IKmqz2gzm2xcgBk2 IjIw AHHilrErzTdeLMU5m9 XvIh89K3RcpAjep2Qc Vgr4et11dZCvv1A9jX J2LNuwXMMakF0xUMci ZnQ6 KMUaOlQwqV28nYLgRW iaQj1vmQcknNchIS3m POLuwanoHXNmqW6xOB RghNFgxHrxWK1xQMFv bjtm e249RxRoZXH7DFSqgJ SyL9NqfJ3dFnVyARFq DPNgK2UxeNGyOChpM6 26GUepDkU1KSWpklUb Y2Fs CDRhjBxcHmI5q6F2By 5Gp3UzbzwnAQE1PTrh CLZxKySsXqNfMuO4Y5 EiQxu7CHCvgJkdAT8v J3Bh WABycsfwjphcyBZ4KR FmEVHifM99lCVnRIpq Op4dv0O5e854LBTrTH AbuQ58Aw1ptToySJKe dCBU gI2xjjetb4hmggsqUw FjQQJvSAd4EYt5MUVi iTnyJoUyIUM7ZaD4CM V6mWMsaK7urGnfyyxd dG9w Oyc+Y24yoP8dDRO6TL X4hhriLGPfdzIeCQ58 CF77B1YjIqynaTKevK U+OPBiyqIrbHbwKO0b YmFj q3zuy7AjPEulW6KmYF WuFIwvWog0VTNjCQE8 fLB4jU8bDIDlGTyqr0 D6kPD9D6HjhkSjpd3n b2xs HDVwPSfrH74eyILsa5 V8KKWkzSO5EJJtyBao ZaGmuI76Cod+PGNvbG zcm2CnMlhsm9eer1gk dGg9 IjMwJSIgdmFsaWduPS M2q8RiBt88O32hKCbg ZHRoPSIxNSUiIHZhbG ofpl9irU3tHo4+PGNv bCB3 tTR0zS4yAINmSoD1BL abN842TgInvQQiIgfe r4dvo9vjcTm1VyBzQC LxjiJlwKvyICH7g8Lj Lz48 Z79oYItsYZZyAIEzRV LpLNSgnGylnl8wlD4u Ii8+TW0iw2hrin11hO 48dHI+JZHaJME0mZve PSdw SJJzuT0xOVrqUsR3II CmFeAhyY33sMKkOHvz Nq5ocNntnNrcQC0qNR Hkenrnb215VpSts4gz IDEw tNZrILapUWP6J26pa9 D0LCXaAMVmTTQ8gLL3 dB0uiXthtdtsnUMeeR sgdmVydGljYWwtYWxp Z246 IHRvcDsnPlBhdGllbn IhGgPrPSi5U4PiIwf0 YOJvmCobCV6uiASvAM vaFh2piGfccSbqLI0g NTBp vuvax400DtWdg1rwNY KrwVQxNQadFLY9F18g q8B4NFFtHUGbRIN7eT E5lU9imDeyvkdouGOy dDsg dmVydGljYWwtYWxpZ2 46IHRvcDsnPkJpcnRo CYNgkEM9XD38PW64rN Byr1Y2iFK7L7FjYDHy bmct irhpiFI5TLXlWWIdtB 90Zz9csAtmYa8hXWPy FPT2CSYspRGdW5ZezT 6fBcAeGXExATJuU7Cm eHQt IJmoM412QHvkDxB3FY KeujGhD6KjEBSdbIjf VnV5w4X9Zn7AP1G6NE 39SY21cYFec7J3oTE3 J3Bh OLCnctmvdqzyeSZ6DL KuDGXubV76Mr8bzLij Tx3iSLUjRCH5CHFsrX YhL3BewP7kDkPiLDVl MDAw I1YthOWxZIvjS379JD uaFeM6MJRtsmBlN3Rx LIWvkZkwAjU6c5R6Bq 6KSOh1AL82EI31pYCl c3R5 hNN4E1GpIZAukizkvd xzaGJ0VOZpNQQwmU46 Jy4hiPpbLl5aIFIiCP I4RIPywXSxA7RrvZ0i OiAj IETfFUZoD2VcgQNdJG unN356OFpvKlM2ATHd nqLiW4BtXGFvtLdpEc R7c9A1Ay1ICULmMU17 IFR5 sIU2OO87IJ14S2DzXh wvdGFibGU+PHRhYmxl IHdpZHRoPScxMDAlJy ZieIjjYB7hLw7eXSZz LWNv wFlrwVQtFtXtp2mbAT BhVQrzOZ1hhPjiQ4Fo bSW3TKFor9g6Xq72G0 1zQ1ZcnRP+PGNvbCB3 aWR0 mA6xMoJzWqC7MJvbM5 75ClDkfYYuJqbvw6zq e8fmaKb3EsA7VSYiqy JuuGweNPN3z2ZbKe53 Y29s IHdpZHRoPSIxNSUiIH HidJflll6rwY2uSk1+ YVIpfIS0nZB3fF2pVz EfUjY1WYxzA690KpLn cCIv Kjevr8uxp9aifMm6Hb IwJSIgdmFsaWduPSJ0 v6ZgPr61Q1NmrCzuq5 ZxYrh4th58qFOkh4H0 bGU9 A4NbBZSbhiqrzBDvoB mkLA2sLYZvsgqlSIJw eT8bFMGmL7n9WhYmZc J4JLzdE4OkfjF1SDLo cHQg UVqjZZL6V96pe4C8HP HzMPWrSIK6dBB9pJ4a bGlnbjogbGVmdDsgdm PyhCzsROdpSDzuS462 IHRv sDslEXRrhS3eNPReoF EziUasFL3xIGTqitbm BkwKTwKKHYUBR8XMPW vHYM66I5ZcNco4MFLj dHls SB2yoGXpMVdzFp0giF trzKmxSJ5iYTJyigbx YAQpzY9yAWEztTPjaZ dsPP6jWMGrlcczd738 OiAx PRP3IBCmvQYgF2CgdW 1eAgWoNCElZUCkN9Yb xWQvLXdqN147YIboLb H4LGJksnJkR5JdWWRb aWdu QzN2n4M7Lt0kAr7kRe 8rZSsxPT21YI27iJDg k3G8nJU0B4AwGNYnym lakapqyLH0IXBlCXQn aW47 lXJcMMuzRc2yt8R9f4 19KSDyGDJxvR96Pw9m lCwtILUkoMDRoA4sue ysz2ikzrjfAsNiQNTn MDt0 OFy1UNJaoDkqBtWaAX Z6UmS4IBP7fKBahH8d dAclnycqkR4bCvi+ND poAMNvxsV2W4IkQai4 ZCBz rKcnZD9mmFWsNHeqBp 1mfIekjNkiRR2sISQe deplLQRlgY0nRSYspD SsdYjqWD0rCJCcbytu b250 YqFcAKJ6KBQcdOWgA9 PniF9qBsDiEBYbMRGm C3XduUCeWBmwM935IW huVrC1IWWcelIoS1At LWFs fTiiVtZ1g3B3Vo4SXN 1qtIA8C2FkLmw9ZNHs yEucXS9mzJXpSIefQm 5hrCqrlJnoKE4kQWAl bjtw EXTzvU4uSUNipYPhtO ocEA0gORDazcfym859 IrLaERY7NGCjvEAdI5 RdpV9dBjBqVOWqVKTg O3Rl yLDeCAozO870BAoyBl L9PYKbfdOjH7HkQDNr mVblTvH1b6S1Et3JHT NqSHLjbEYkJoH1A2Yb Pjwv dHI+YB20SKMpWP03fJ YvyZIhb5vsqFu0QiMo APRpNVH3cNssPZdki6 CnEXCmQ31ycCEjx6J3 IGNv kTfxaNXsEoWmrMM4dR 8mCAsaqoowf6ozkquq Ihgit7vqdl63hU42W4 9sIHdpZHRoPSIzMCUi IHZh oOdsju4unJ9aMv1+PG DohIQ7zWZ9rK5uSaCo RkO5YUajJ733VeJsyH AyFssjm8jds6dsjPp2 IjIw UQVfkqWeqWumBLF8o5 TkBr19Z56zAGdmQVKz PSIyMCUiIHZhbGlnbj 0iiN6iAy1+HJ6zj8xu cm91 nO69jMT+HMAhYJE9cG vxJUrpKOAmiA7cMLiw ZkR3LQKcEqFfrY71qV FjRNrrMa9olRjfvVzx MC4w PXRglxwsi390DrGlo0 xkIDEwcHQgVGltZXM7 G47ga6P8PIGqBKUtUI A0yPB7sB6mfInhdumz bGVm dDsgdmVydGljYWwtYW rhB607QYOwbPfxMpGi gOOyK9cozjUMMC8pQn wvdGQ+MKAsQNC4gEbt PSdw LTBwpS5qXDDmK0j5Cq XrNhY3DBvlH7GsnlT0 IGJvbGQgMTBwdCBUaW 7czrtet4zlmkzeTkKo MDAw AHc4AZh6OCRvsQcpBp EmQMB2VgM0WFY0fCPv xG5jtZtboyytgR2kWs c+RklOOjwvdGQ+PHRk IHN0 wRuvTPdwTUTpsK7gAB KoZ2e4CxQsYoY8PIhm A9NlvdI2FNMqyAEzQA ZgmICZbP1pkdgvp8ug cjog XxWaAMStHVy4URx0IM GrnOvtKkEnKWI2XdM9 SLZ1nZIthU5bsKnqjb gvjY7xFvt+TVJOOjwv dGQ+ QUYgNYG2mKnhHLbsJR HqlF4cZEKfX9s8AzBh WdU7PVosK4NikgQ5ZC LakRIyQOKngFHIjX5a cztj f1erdaidErYoGMRqAM q2GMs8HUTcuJqaEmLh MBF2UfD0CEK9iQQcgZ 7kzAtaemjvdI8pJdr+ UGF5 JNA0RU70XA79D0EeHt wvdGFibGU+PHRhYmxl IHdpZHRoPScxMDAlJy DymHofPH3aPd9wIDEf LWNv bGxh (more content not included)... Normal [facility] Physician Referralon 022 Physician Referral [id number]#[id number]:127 [facility] Pre-Certification Formon Pre-Certification Form [id number]#1.00CD:127 Normal [facility] Patient Educationon 09-16-19 22 Patient Education Urology [...] these instructions at home: Medicines ? Take nutf-rvl-uxpyaxr and prescription medicines only as told by [...] the blood stops without treatment. ? Take ykub-oio-yrhrshp and prescription medicines only as told by your health care provider. ? Drink enough fluid to keep your urine clear or pale yellow. This information is not intended to replace advice given to you by your health care provider. Make sure you discuss any questions you have with your health care provider. Document Released: 06/05/2006 Document Revised: 10/30/2019 Document Reviewed: 07/08/2017 [employer] Patient Education ? 2019 [employer] Normal [facility] RAD - CT Reporton 09-15-2021 RAD - CT Report [id number]#[id number]:127 [facility] URINALYSISOrdered By: Shahla buckner on 09-15-2021 Bilirubin [...] PM) Normal Negative [facility] UA Auto SS [place].plasma/[place]. RBC (Bld) [Mass ratio] 0-3 /HPF Normal [...] Desc Clean Catch (09/15/21 12:36 PM) Normal [facility] UA Auto SS Urobilinogen Qn (U) 0.8771657 {[place]'U}/dL Normal 0.0 - 1.0 EU/dL FT UA Auto SS WBC Auto Ql (U) Negative (09/15/21 12:36 PM) Normal Negative [facility] UA Auto SS WBC LM.HPF (Urine sed) [#/Area] 0-5 /HPF Normal 0-5/HPF [facility] UA Auto SS Urinalysison 09-15-2021 Bilirubin Ql (U) 2+ Abnormal Negative [facility] Comment on above: Performed By: #### 1 [id number] #### [facility] [address] [place] [address] Calcium oxalate crystals LM Ql (Urine sed) Present Normal [facility] Comment on above: Performed By: #### 1 [id number] #### [facility] [address] [place] [address] Clarity (U) CLEAR Normal Clear [facility] Comment on above: Performed By: #### 1 [id number] #### [facility] [address] [place] [address] Color (U) YELLOW Normal Yellow [facility] Comment on above: Performed By: #### 1 [id number] #### [facility] [address] [place] [address] Epithelial cells.squamous LM.HPF (Urine sed) [#/Area] 0-2 Normal 0-2 [facility] Comment on above: Performed By: #### 1 [id number] #### [facility] [address] [place] [address] Glucose Test strip (U) [Mass/Vol] Negative Normal Negative [facility] Comment on above: Performed By: #### 1 [id number] #### [facility] [address] [place] [address] Hemoglobin Ql (U) 3+ Abnormal Negative [facility] Comment on above: Performed By: #### 1 [id number] #### [facility] [address] [place] [address] Ketones (U) [Mass/Vol] Negative Normal Negative [facility] Comment on above: Performed By: #### 1 [id number] #### [facility] [address] [place] [address] [place].plasma/[place]. RBC (Bld) [Mass ratio] 0-3 Normal 0-3 [facility] Comment on above: Performed By: #### 1 [id number] #### [facility] [address] [place] [address] Mucus Ql (Urine sed) TRACE Normal [facility] Comment on above: Performed By: #### 1 [id number] #### [facility] [address] [place] [address] Nitrite Ql (U) Negative Normal Negative [facility] Comment on above: Performed By: #### 1 [id number] #### [facility] [address] [place] [address] pH (U) 5.5 [pH] Invalid Interpretation Code 5.0-9.0 [facility] Comment on above: Performed By: #### 1 [id number] #### [facility] [address] [place] [address] Protein (U) [Mass/Vol] Negative Normal Negative Fi [facility] Comment on above: Performed By: #### 1 [id number] #### [facility] [address] [place] [address] Specific gravity (U) [Rel density] 1.025 Invalid Interpretation Code 1.005-1.030 [facility] Comment on above: Performed By: #### 1 [id number] #### [facility] [address] [place] [address] Type of Urine collection method Clean Catch Normal [facility] Comment on above: Performed By: #### 1 [id number] #### [facility] [address] [place] [address] Urobilinogen Qn (U) 0.2 {[place]'U}/dL Normal 0.0-1.0 [facility] Comment on above: Performed By: #### 1 [id number] #### [facility] [address] [place] [address] WBC Auto Ql (U) Negative Normal Negative [facility] Comment on above: Performed By: #### [id number] #### [facility] [address] [place] [address] WBC LM.HPF (Urine sed) [#/Area] 0-5 Normal 0-5 [facility] Comment on above: Performed By: #### 1 [id number] #### [facility] [address] [place] [address] CT CHEST W CONon 09-07-2021 CT CHEST [...] nonspecific, of doubtful clinical significance Normal [facility] COVID Quick Testingon 2020 Result Negative [employer] Other Vital Signs Date Time Vital Sign Value Performing Clinician Facility 09-15-2021 08:30-0400 Blood Pressure Location Vickie Lupiero [facility] 09-15-2021 08:30-0400 Diastolic blood pressure 80 mm[Hg] Vickie Lue [facility] 09-15-2021 08:30-0400 Systolic blood pressure 124 mm[Hg] Vickie Lue [facility] 04-14-2021 20:30-0400 Body height 170.18 cm Ccey Chiang Other [employer] Other 04-14-2021 20:30-0400 Body mass index (BMI) [Ratio] 32.1 kg/m2 Cecy Chiang Other [facility] Other 04-14-2021 20:30-0400 Body temperature 97.5 [degF] Cecy Chiang Other [facility] Other 04-14-2021 20:30-0400 Body weight 92.99 kg Cecy Chiang Other [facility] Other 04-14-2021 20:30-0400 Respiratory rate 18 /min Cecy Chiang Other [facility] Other 04-14-2021 20:30-0400 SaO2% (BldA) [Mass fraction] 96 % Cecy Chiagn Other [employer] Other Encounters Encounter Date Encounter Type Care Provider Facility Start: 12-11-2023 End: 12-11-2023 ambulatory SHANDRA DANTEZ Not Available Start: 09-07-2023 End: 09-07-2023 ambulatory SHANDRA DANTEZ Not Available Start: 12-06-2022 End: 12-06-2022 ambulatory Kendra Woodall Facility:[facility] Start: 12-06-2022 End: 12-06-2022 ambulatory Shandra Delia Romero Work Phone: [facility] Work Phone: Start: 12-06-2022 End: 12-06-2022 Patient encounter procedure Shandra Heather Work Phone: [facility] [address] Work Phone: Start: 10-03-2022 End: 10-03-2022 ambulatory Cecil Taylor Facility:[facility] Start: 10-03-2022 End: 10-03-2022 ambulatory Shandra Delia Romero Work Phone: [facility] Work Phone: Start: 10-03-2022 End: 10-03-2022 Patient encounter procedure Shandra Romero Work Phone: [facility] [address] Work Phone: Start: 08-18-2022 End: 08-19-2022 ambulatory TONI ROMERO Facility:[facility] Start: 06-07-2022 End: 06-08-[address] DOCTOR WELCH Facility:[facility] Start: 02-25-2022 End: 02-26-2022 ambulatory HAM SMOKER SHANDRA ROMERO Facility:[facility] Start: 02-01-2022 End: 02-02-2022 ambulatory HAM SMOKER SHANDRA ROMERO Facility:[facility] Start: 12-13-2021 End: 12-14-2021 ambulatory TONI ROMERO Facility:[facility] Start: 09-15-2021 End: 09-15-2021 Lab Drop off Vickie Montiel [facility] Start: 09-15-2021 End: 09-15-2021 Patient encounter procedure Vickie Montiel [facility] Start: 09-06-2021 End: 09-07-2021 ambulatory TONI ROMERO Facility:[facility] Start: 04-14-2021 End: 04-14-2021 ambulatory Cecy Chiang Other [employer] Other Start: 04-14-2021 Office outpatient visit 15 minutes Cecy Chiang [facility] Procedures Date Procedure Procedure Detail Performing Clinician Start: 06-19-2016 Hysterectomy Vickie Montiel Immunizations Immunization Date Immunization Notes Care Provider Fa cility NEGATED: Highlighted row has not occurred!09-15-2021 SARS-CoV-2 (COVID-19) Ad26 vaccine, recombinant Vickie Montiel [facility] Payers Date Payer Category Payer Self-pay [id number] 1970 Unknown [id number] 2.16.84 [id number] 1970 Unknown [id number] 2.16.84 [id number] 1972 Unknown [id number] 2.16.84 0.1.068270.3.579.2.593 1972 Unknown [id number] 2.16.84 0.1.979213.3.579.2.593 1972 Unknown [id number] 2.16.84 0.1.631110.3.579.2.593 1972 Unknown [id number] 2.16.84 0.1.599336.3.579.2.593 1972 Unknown [id number] 2.16.84 0.1.627882.3.579.2.593 1972 Unknown [id number] 2.16.84 0.1.812868.3.579.2.593 1972 Unknown [id number] 2.16.84 0.1.835653.3.579.2.1259 1970 Unknown [id number] 2.16.84 0.1.755675.3.579.2.1259 1957 Blue Cross Blue Shield HUM [id number] Unknown [id number] 2.16.8 [id number] Unknown [id number] 2.16.8 [id number] Social History Date Type Detail Facility Start: 09-15-2021 Tobacco smoking status Heavy t obacco smoker (finding) [employer] Other Sex Assigned At Female [facility] [employer] Other Start: 1970 Sex Assigned At Female F [facility] Clinical Note 02-25-2022 Note Date & [...] authenticated by: TODD JACOBS Date: 2022-02-25 17:45 [facility] Clinical Note 09-15-2021 Note Date & Type [...] Illness Tests reviewed: reviewed UA, CT AP ([facility]), external records I have reviewed the previous [...] procedure, # 2 cap(s), Refills(s) 0, Pharmacy: [facility]/pharmacy #[id number], 170, cm, 09/15/21 8:33:00 EDT, Height/Length Dosing, 93.9, kg, 09/15/21 8:33:00 EDT, Weight Dosing estradiol topical, See Instructions, 42.5 gm, Refill(s) 3, Apply pea sized amount 3x a week for 4 weeks and 2x a week after, [facility]/pharmacy #[id number], 170, cm, 09/15/21 8:33:00 EDT, Height/Length Dosing, 93.9, (more content not included)... [facility] Comment on above: Result Comment: Elec tronically [...] Follow these instructions at home: Medicines Take yoiu-ymc-cglkktb and prescription medicines only as told by [...] or the blood stops without treatment. Take nqtb-zxc-pojipzd and prescription medicines only as told by your health care provider. Drink enough fluid to keep your urine clear or pale yellow. This information is not intended to replace advice given to you by your health care provider. Make sure you discuss any questions you have with your health care provider. Document Released: 06/05/2006 Document Revised: 10/30/2019 Document Reviewed: 07/08/2017 [employer] Patient Education 2020 Notegraphy. Follow Up Care 08/23/2021 15:52:47 With:Dinesh SABA, MARCELLA Smith, [facility] Address[address] [place] [address] [phone] Business (1) When: Unknown [facility] Evaluation note 04-14-2021 Note Date & [...] care instructions given in writting by [facility] Care At Home document. [employer] Other Evaluation + Plan note Note Date & Type Note Facility Evaluation + Plan note Future Appointments Appointment Date:09/16/2021 08:30:00 AM Scheduled Provider: Location:[facility] Appointment Type:Urology CALL PAT FT Appointment Date:09/27/2021 09:00:00 AM Scheduled Provider: Location:[facility] Appointment Type:Urology FT [facility] Evaluation note Note Date & Type Note Facility Evaluation note No assessment information availa [facility] Work Phone: History general Narrative - Reported Note Date & Type Note Facility History general Narrative - Reported Type Medical History rheumatoid arthritis Medical History Osteoarthritis Surgical History HYSTERECTOMY Surgical History 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 as chi ld Hospitalization History see above [employer] Other Hospital course Narrative Note Date & Type Note Facility Hospital course Narrative No data available for this section [facility] Hospital Discharge instructions Note Date & Type Note Facility Hospital Discharge instructions No data available for this section [facility] Summary Purpose Family History No Family [...] section and content) DATE CREATED AUTHOR 02/01/2022 [facility] DATE CREATED AUTHOR AUTHOR'S ORGANIZ ATION 08/24/2022 [facility] DATE CREATED AUTHOR AUTHOR'S ORGANIZ ATION 12/15/2022 [facility] DATE CREATED AUTHOR AUTHOR'S ORGANIZ ATION 12/12/2023 [facility] EPIC Care Teams (unrecognized sec [...] BE BASED ON THE PRIMARY CLINICAL RECORDS. [facility] [employer] [facility]. provides no warranty or guarantee of the accuracy or completeness of information in this document.
--- NOTE | 2024-03-02 15:10 | ED_ITS ---
HPI - URI/Sore Throat General Chief Complaint: Upper Respiratory Infection Stated Complaint: SORE THROAT Time Seen by Provider: 03/02/24 15:03 Source: patient History of Present Illness HPI Narrative: This patient is here complaining primarily of a sore throat. She says symptoms started on but have just gotten worse. She tried some ijcm-ghz-exsgzcc medications are not helping. She is not on any. She does have a history of RA and is on 2 immune suppressing medications but she has been on those for a very long time. She has never had strep before. She did have a little bit of runny nose but she has aches and pains and chills. She says it is painful for her to swallow. She does not really have any shortness of breath. Her voice is normal. She is not around or had access to any sick or ill children. Related Data Home Medications ?Medication ?Instructions ?Recorded ?Confirmed amitriptyline 25 mg tablet 25 mg PO QPM 02/02/24 03/02/24 duloxetine 60 mg capsule,delayed 60 mg PO DAILY 02/02/24 03/02/24 release etodolac 500 mg tablet 500 mg PO BID 02/02/24 03/02/24 folic acid 1 mg tablet 1 mg PO DAILY 02/02/24 03/02/24 hydroxychloroquine 200 mg tablet 200 mg PO BID 02/02/24 03/02/24 methotrexate sodium 25 mg/mL 15 mg subcut QWEEK 02/02/24 03/02/24 injection solution omeprazole 20 mg capsule,delayed 20 mg PO DAILY 02/02/24 03/02/24 release Allergies Allergy/AdvReac Type Severity Reaction Status Date / Time No Known Drug Allergies Allergy Verified 02/02/24 21:32 [facility] Medical History (Updated 03/02/24 @ 17:49 by Cole Young MD) High cholesterol ?E78.00 - Pure hypercholesterolemia, unspecified (ICD-10) Depression ?F32.A - Depression, unspecified (ICD-10) Surgical History (Updated 03/02/24 @ 17:26 by Ladonna Najera) H/O: hysterectomy ?Z90.710 - Acquired absence of both cervix and uterus (ICD-10) Exam Narrative Exam Narrative: Patient is awake alert. Vital signs are stable. She has no stridor or respiratory distress. She is not drooling or posturing. Problem focused examination shows her airway to be widely patent. The trachea is midline. There is no swelling of the floor the mouth externally. Examination the oral cavity shows both the right and the left peritonsillar area to be inflamed with exudate. There is more prominence in the left tonsillar area towards the midline. Uvula is not swollen or edematous. Floor the mouth protrudes in the midline. She is not drooling. She has no cough or congestion lungs are clear and heart sounds are normal. Skin and integument are unremarkable. She has normal cognition and mental status and is a excellent oriented. Constitutional Vital Signs, click to edit/add: Last Vital Signs Temp 99.2 F 03/02/24 14:31 Pulse 84 03/02/24 17:26 Resp 18 03/02/24 17:26 BP 112/73 03/02/24 17:26 Pulse Ox 100 03/02/24 17:26 O2 Del Method Room Air 03/02/24 14:31 Course Vital Signs Vital signs: Vital Signs Temperature 99.2 F 03/02/24 14:31 Pulse Rate 99 H 03/02/24 14:31 Respiratory Rate 18 03/02/24 14:31 Blood Pressure 109/77 03/02/24 14:31 Pulse Oximetry 100 03/02/24 14:31 Oxygen Delivery Method Room Air 03/02/24 14:31 Temperature 99.2 F 03/02/24 14:31 Pulse Rate 84 03/02/24 17:26 Respiratory Rate 18 03/02/24 17:26 Blood Pressure 112/73 03/02/24 17:26 Pulse Oximetry 100 03/02/24 17:26 Oxygen Delivery Method Room Air 03/02/24 14:31 MDM - URI/Sore Throat MDM Narrative Medical decision making narrative: This patient's rapid strep is positive. Her white blood cell count is elevated. Because she is on immune suppressant therapy for her RA I believe it is prudent to get her admitted and started on antibiotics here in the ER. The CT scan shows a small 1.2 cm abscess adjacent to the left tonsillar area but there is no airway compromise or compromise of the epiglottis. This was discussed with the on-call hospitalist who agrees with the need for hospitalization. The patient was given IV Rocephin and IV steroids here in the ER and her condition remained stable Lab Data Labs: Lab Results 03/02/24 Range/Units 15:16 WBC 17.1 H (4.0-11.0) 10^3/uL RBC 4.45 (4.20-5.40) 10^6/uL Hgb 12.8 (12.0-16.0) g/dL Hct 37.9 (36.0-48.0) % MCV 85.2 (81.0-99.0) fL MCH 28.8 (26.7-34.0) pg MCHC 33.8 (29.9-35.2) g/dL RDW 13.8 (11.0-15.0) % Plt Count 264 (150-450) 10^3/uL MPV 9.1 L (9.5-13.5) fL Neut % (Auto) 84.0 H (43.0-75.0) % Lymph % (Auto) 7.8 L (20.5-60.0) % [place] % (Auto) 7.3 (1.7-12.0) % Eos % (Auto) 0.3 L (0.9-7.0) % Baso % (Auto) 0.3 (0.2-2.0) % Neut # (Auto) 14.4 H (1.4-6.5) 10^3/uL Lymph # (Auto) 1.3 (1.2-3.8) 10^3/uL [place] # (Auto) 1.3 H (0.3-0.8) 10^3/uL Eos # (Auto) 0.1 (0.0-0.7) 10^3/uL Baso # (Auto) 0.1 (0.0-0.1) 10^3/uL Abs Immat Gran (auto) 0.05 H (0.00-0.03) 10^3/uL Imm/Tot Granulo (auto) 0.3 (0.0-0.5) % Sodium 137 (136-145) mmol/L Potassium 3.3 L (3.5-5.1) mmol/L Chloride 99 (98-107) mmol/L Carbon Dioxide 26.8 (21.0-32.0) mmol/L Anion Gap 14.5 BUN 9.0 (7.0-18.0) mg/dL Creatinine 0.91 (0.55-1.02) mg/dL Est GFR ( Amer) >60 (>=60) Est GFR (Non-Af Amer) >60 (>=60) BUN/Creatinine Ratio 9.9 Glucose 110 H (74-106) mg/dL Lactate 0.7 (0.4-2.0) mmol/L Calcium 9.0 (8.5-10.1) mg/dL Total Bilirubin 0.5 (0.2-1.0) mg/dL AST 13 L (15-37) U/L ALT 15 (14-59) U/L Alkaline Phosphatase 95 (46-116) U/L Total Protein 7.5 (6.4-8.2) g/dL Albumin 3.3 L (3.4-5.0) g/dL Globulin 4.2 g/dL Albumin/Globulin Ratio 0.8 Streptococcus Screen Positive A Discharge Plan Discharge Chief Complaint: Upper Respiratory Infection Clinical Impression: Acute tonsillitis Patient Disposition: Admitted as Observation Time of Disposition Decision: 17:49 Prescriptions / Home Meds: No Action amitriptyline 25 mg tablet 25 mg PO QPM duloxetine 60 mg capsule,delayed release(DR/EC) 60 mg PO DAILY etodolac 500 mg tablet 500 mg PO BID folic acid 1 mg tablet 1 mg PO DAILY hydroxychloroquine 200 mg tablet 200 mg PO BID methotrexate sodium 25 mg/mL solution 15 mg subcut QWEEK Patient Comments: MONDAY omeprazole 20 mg capsule,delayed release(DR/EC) 20 mg PO DAILY Print Language: Tajik Referrals: Shandra Romero [facility]STER [Primary Care Provider] - 1 week
[2024-03-02 15:24] LABS: Basophils Absolute Auto 0.1 10^3/uL (0.0-0.1); Basophils Percent Auto 0.3 % (0.2-2.0); Eosinophils Absolute Auto 0.1 10^3/uL (0.0-0.7); Eosinophils Percent Auto 0.3 % (0.9-7.0); Hematocrit 37.9 % (36.0-48.0); Hemoglobin 12.8 g/dL (12.0-16.0); Immature Granulocytes Abs Auto 0.05 10^3/uL (0.00-0.03); Immature Granulocytes Pct Auto 0.3 % (0.0-0.5); Lymphocytes Absolute Auto 1.3 10^3/uL (1.2-3.8); Lymphocytes Percent Auto 7.8 % (20.5-60.0); Mean Corpuscular HGB Conc 33.8 g/dL (29.9-35.2); Mean Corpuscular Hemoglobin 28.8 pg (26.7-34.0); Mean Corpuscular Volume 85.2 fL (81.0-99.0); Mean Platelet Volume 9.1 fL (9.5-13.5); Monocytes Absolute Auto 1.3 10^3/uL (0.3-0.8); Monocytes Percent Auto 7.3 % (1.7-12.0); Neutrophils Absolute Auto 14.4 10^3/uL (1.4-6.5); Platelet Count 264 10^3/uL (150-450); Red Blood Count 4.45 10^6/uL (4.20-5.40); Red Cell Distribution Width 13.8 % (11.0-15.0); White Blood Count 17.1 10^3/uL (4.0-11.0)
[2024-03-02] MEDS: CEFTRIAXONE 1,000 MG in 0.9 % SODIUM CHLORIDE 50 ML 100 MG IV (15:25)
[2024-03-02] MEDS: 0.9 % SODIUM CHLORIDE 1,000 ML 999 ML IV (15:25)
[2024-03-02] MEDS: METHYLPREDNISOLONE SOD SUCC PF 125 MG/2 ML VIAL IVP (15:25)
[2024-03-02 15:30] LABS: Internal Control Within Normal Limits; Strep A Antigen Screen Positive
[2024-03-02 15:37] LABS: Alanine Aminotransferase 15 U/L (14-59); Albumin Globulin Ratio 0.8; Albumin Level 3.3 g/dL (3.4-5.0); Alkaline Phosphatase 95 U/L (46-116); Anion Gap 14.5; Aspartate Amino Transferase 13 U/L (15-37); BUN Creatinine Ratio 9.9; Bilirubin Total 0.5 mg/dL (0.2-1.0); Carbon Dioxide 26.8 mmol/L (21.0-32.0); Chloride 99 mmol/L (98-107); Estimated GFR (African America >60 (>=60); Estimated GFR (Non-African Ame >60 (>=60); Globulin 4.2 g/dL; Glucose 110 mg/dL (74-106); Potassium 3.3 mmol/L (3.5-5.1); Sodium 137 mmol/L (136-145); Total Protein 7.5 g/dL (6.4-8.2)
[2024-03-02 15:40] LABS: Lactate/Lactic Acid 0.7 mmol/L (0.4-2.0)
--- NOTE | 2024-03-02 15:46 | CT_ITS ---
The [address] [address] Patient Name: MONET ORTEGA MRN: [id number] date: 1970 Sex: F Assigned Patient Location: ER Current Patient Location: ER Accession/Order Number: [id number] Exam Date: 03/02/2024 16:10 Report Date: 03/02/2024 17:14 At the request of: REMIGIO HARRIS Procedure: CT soft tissue neck w con CT SOFT TISSUE NECK WITH IV CONTRAST. INDICATION: Difficulty breathing/sore throat/rule out abscess COMPARISON: None. TECHNIQUE: CT soft tissue neck with IV contrast. Sagittal and coronal reformats were obtained. FINDINGS: INTRACRANIAL CONTENTS: No mass or hemorrhage. PARANASAL SINUSES: Paranasal sinuses are clear. MASTOID AIR CELLS: Clear. EXTERNAL/MIDDLE AIR CAVITIES: Clear.l SALIVARY GLANDS: Normal. SUBCUTANEOUS/SOFT TISSUES: No acute abnormality. ORAL CAVITY: No periapical lucency. No inflammation or abscess. MUCOSA: There are enlarged bilateral palatine tonsils with striated enhancement. There is a left peritonsillar fluid collection measuring 1.2 x 0.5 cm with peripheral enhancement. Evaluation is somewhat limited due to streak artifact from the dental amalgam. There is left peritonsillar edema. Normal epiglottis.. No significant narrowing of the airway. PARAPHARYNGEAL/RETROPHARYNGEAL SPACES: Clear. No inflammation or fluid collection. LYMPH NODES: There are mildly enlarged left cervical lymph nodes measuring up to 1.1 cm in short axis likely reactive.. THYROID: No mass. UPPER LUNGS: Clear. VESSELS: The arterial and venous structures of the neck are patent. MUSCULOSKELETAL: No acute osseous abnormality.. CT/CT soft tissue neck w con IMPRESSION: Acute tonsillitis with left peritonsillar 1.2 cm collection suggestive of an abscess. Electronically authenticated by: PEG PATINO Date: 03/02/2024 17:14
== END 2024-03-02 21:27 | disposition short-term general hospital (02) ==
PROVIDERS: Emergency Provider Emergency Medicine Emergency Medical Services; PCP Nurse Practitioner
DX: J36 Peritonsillar abscess (principal); M06.9 Rheumatoid arthritis, unspecified; Z79.60 Long term (current) use of unspecified immunomodulators and immunosuppressants
CPT/HCPCS: 36415; 70491; 80053; 83605; 85025; 87880; 96365; 96375; 99285; J0696; J2919; Q9967

== ENCOUNTER 2024-03-27 13:29 | Outpatient (OUT) | payer BC, SELFPAY ==
--- NOTE | 2024-03-27 13:33 | MM_ITS ---
Patient Name: MONET ORTEGA MR#: [id number] : 1970 Exam Date: 03/27/2024 Ordering Doctor: TONI Romero CNP RADIOLOGY REPORT PROCEDURE: MM TOMOSYNTHESIS SCREENING BI COMPARISON: MM TOMOSYNTHESIS SCREENING BI, 03/22/2023. MG MAMM SCREEN 3D [place] CAD, 07/20/2021. INDICATIONS: Screening Calculator Name NCI Breast Cancer Risk Assessment Tool 5 Year Breast Cancer Risk 0.90% Lifetime Breast Cancer Risk 7.90% Personal Breast Cancer No Personal Ovarian Cancer No Treatments None Family Cancers Mother with cervical cancer at age 50; Daughter with cervical cancer at age 24; Daughter with cervical cancer at age 27. LOCATION: [facility] BREAST COMPOSITION: There are scattered areas of fibroglandular density. FINDINGS: DIAGNOSTIC CATEGORY 1--NEGATIVE. RIGHT BREAST: No significant suspicious finding. No significant change has occurred. LEFT BREAST: No significant suspicious finding. No significant change has occurred. RECOMMENDATIONS: ROUTINE MAMMOGRAM AND CLINICAL EVALUATION IN 12 MONTHS. PLEASE NOTE: A NORMAL MAMMOGRAM DOES NOT EXCLUDE THE POSSIBILITY OF BREAST CANCER. A CLINICALLY SUSPICIOUS PALPABLE LUMP SHOULD BE BIOPSIED. Dictated by: Weston Can M.D. on 03/27/2024 at 16:13 Approved by: Weston Can M.D. on 03/27/2024 at 16:15
== END 2024-03-27 13:30 | disposition home or self-care (01) ==
LOC: CT 13:29
PROVIDERS: PCP Nurse Practitioner; Visit Provider Nurse Practitioner
DX: Z12.31 Encounter for screening mammogram for malignant neoplasm of breast (principal); Z80.49 Family history of malignant neoplasm of other genital organs
CPT/HCPCS: 77063; 77067

== ENCOUNTER 2024-03-27 14:11 | Outpatient (OUT) | payer BC, SELFPAY ==
--- NOTE | 2024-03-27 14:15 | CT_ITS ---
[address] [address] Patient Name: MONET ORTEGA MRN: [id number] date: 1970 Sex: F Assigned Patient Location: CT Current Patient Location: Accession/Order Number: [id number] Exam Date: 03/27/2024 13:45 Report Date: 03/28/2024 06:17 At the request of: ANGELA ADAMS Procedure: CT lung screening low-dose EXAMINATION: CT lung screening low-dose HISTORY: Nicotine Dependence COMPARISON: CT chest 02/25/2022 TECHNIQUE: Axial, Coronal, and Sagittal images were created without the administration of IV contrast material. Dose reduction techniques were achieved by using automated exposure control and/or adjustment of mA and/or kV according to patient size and/or use of iterative reconstruction technique. FINDINGS: LUNGS: Stable appearance of a few tiny nodule/scarring scattered within the lungs. No new or suspicious findings. Minimal emphysematous changes. PLEURA: No mass, effusion, or pneumothorax. VASCULATURE: No abnormality. JAYANT: No mass or pathologic adenopathy. MEDIASTINUM: No mass or pathologic adenopathy. CARDIAC: No enlargement, pericardial thickening, or pericardial effusion. Coronary Artery calcifications: Coronary calcifications are absent. AORTA: No aneurysm or dissection. CHEST WALL: No mass or axillary adenopathy BONES: No bone lesion or fracture. LIMITED ABDOMEN: No suspicious findings. Limited images of the upper abdomen. OTHER: Negative. CT/CT lung screening low-dose IMPRESSION: 1. Lung-RADS 2- Benign Appearance or Behavior. Nodules with a very low likelihood of becoming a clinically active cancer due to size or lack of growth. Follow-up CT Chest in 1 year. Electronically authenticated by: TODD JACOBS Date: 03/28/2024 06:17
--- OUTSIDE RECORDS SUMMARY | 2024-03-27 14:33 | XMS_ITS | CCD ---
Author Organization [facility] Care Team Providers Care Equipment Mechanic Specialist Name Role Phone SHANDRA ROMERO Primary Care Physician Cecy Chiang Unavailable AICHHOLZ, PATIENT SAFETY COORDINATOR SHANDRA Admitting Unavailable AICHHOLZ, PATIENT SAFETY COORDINATOR SHANDRA Attending Unavailable AICHHOLZ, PATIENT SAFETY COORDINATOR SHANDRA Primary Care Unavailable DR WEST OBANDO V Consulting Unavailable AICHHOLZ, PATIENT SAFETY COORDINATOR SHANDRA Consulting Unavailable MISC, DR IBARRA Admitting Unavailable MISC, DR IBARRA Attending Unavailable AICHHOLZ, PATIENT SAFETY COORDINATOR SHANDRA Primary Care Unavailable MISC, DR IBARRA Consulting Unavailable MISC, DR IBARRA Admitting Unavailable MISC, DR IBARRA Attending Unavailable AICHHOLZ, PATIENT SAFETY COORDINATOR SHANDRA Primary Care Unavailable AICHHOLZ, PATIENT SAFETY COORDINATOR SHANDRA Consulting Unavailable MISC, DR IBARRA Consulting Unavailable DR TODD JACOBS Consulting Unavailable AICHHOLZ, PATIENT SAFETY COORDINATOR SHANDRA Admitting Unavailable AICHHOLZ, PATIENT SAFETY COORDINATOR SHANDRA Attending Unavailable AICHHOLZ, PATIENT SAFETY COORDINATOR SHANDRA Primary Care Unavailable SAMSA ., ANGELA Admitting Unavailable SAMSA ., ANGELA Attending Unavailable AICHHOLZ, PATIENT SAFETY COORDINATOR SHANDRA Primary Care Unavailable DR TODD JACOBS Consulting Unavailable SAMSA ., ANGELA Consulting Unavailable AICHHOLZ, PATIENT SAFETY COORDINATOR SHANDRA Admitting Unavailable AICHHOLZ, PATIENT SAFETY COORDINATOR SHANDRA Attending Unavailable AICHHOLZ, PATIENT SAFETY COORDINATOR SHANDRA Primary Care Unavailable AICHHOLZ, PATIENT SAFETY COORDINATOR SHANDRA Consulting Unavailable AICHHOLZ, PATIENT SAFETY COORDINATOR SHANDRA Admitting Unavailable AICHHOLZ, PATIENT SAFETY COORDINATOR SHANDRA Attending Unavailable AICHHOLZ, PATIENT SAFETY COORDINATOR SHANDRA Primary Care Unavailable AICHHOLZ, PATIENT SAFETY COORDINATOR SHANDRA Consulting Unavailable AICHHOLZ, PATIENT SAFETY COORDINATOR SHANDRA Admitting Unavailable AICHHOLZ, PATIENT SAFETY COORDINATOR SHANDRA Attending Unavailable AICHHOLZ, PATIENT SAFETY COORDINATOR SHANDRA Primary Care Unavailable DR WEST OBANDO V Consulting Unavailable AICHHOLZ, PATIENT SAFETY COORDINATOR SHANDRA Consulting Unavailable Aichholz, Shandra J Primary Care Provider MD Cecil Taylor Attending Provider [phone] ObKendra lu Admitting Unavailable Shandra Romero Primary Care Unavailable ObKendra lu Attending Unavailable Cecil Taylor Attending Unavailable Cecil Taylor Admitting Unavailable Shandra Romero Primary Care Unavailable MAURO VALENCIA Admitting Unavailable MAURO VALENCIA Attending Unavailable REMIGIO HARRIS Referring Unavailable ETTA DMAIAN Consulting Unavailable SHANDRA ROMERO Attending Unavailable SHANDRA ROMERO Attending Unavailable SHANDRA ROMERO Attending Unavailable SHANDRA ROMERO [...] procedure, # 2 cap(s), Refills(s) 0, Pharmacy: [facility]/pharmacy #[id number], 170, cm, 09/15/21 8:33:00 EDT, Height/Length Dosing, 93.9, kg, 09/15/21 8:33:00 EDT, Weight Dosing Start Date: 09/15/21 Status: Ordered Estradiol (2 sources) Estrogen Start: 09-15-2021 Estrace 0.1 mg/g Cream See Instructions, 42.5 gm, Refill(s) 3, Apply pea sized amount 3x a week for 4 weeks and 2x a week after, [facility]/pharmacy #[id number], 170, cm, 09/15/21 8:33:00 EDT, [...] Active Problems Problem Classification Problem Date Documented Date Episodic/Chronic Acute and chronic tonsillitis (2 sources) Peritonsillar abscess; Translations: [Peritonsillar abscess] Onset: 03-02-2024 Episodic Disorders of lipid metabolism (6 sources) Hyperlipidemia; [...] Test Name Value Interpretation Reference Range Facility Cult, Bloodon 03-08-2024 Cult, Blood Specimen Description .BLOOD Special Requests r hand 0.5ml Culture NO GROWTH 5 DAYS Report Status FINAL 03/08/2024 [facility] Comment on above: Performed By: #### B CUL2 #### [employer] [address] [place] [id number] [employer] Supervisor: Antwan Rice MD Cult,Bloodon 03-08-2024 Cult,Blood Specimen Description .BLOOD Special Requests L HAND 0.5ML Culture NO GROWTH 5 DAYS Report Status FINAL 03/08/2024 [facility] Comment on above: Performed By: #### B C #### [facility] [facility] [address] [place] [address] [phone] [employer] Supervisor: Antwan Rice MD Basic Metab w/rfx MGon 03-03 Anion gap [Moles/Vol] 16 mmol/L Normal 9-16 [facility] Comment on above: Performed By: #### Mandy Waller, PRCAL, CDP, BMPX #### [facility] [address] [place] [phone] [employer] Supervisor: Antwan Rice MD Calcium [Mass/Vol] 9.1 mg/dL Normal 8.6-10.4 [facility] Comment on above: Performed By: #### Mandy Waller, PRCAL, CDP, BMPX #### [facility] [address] [place] [address] [employer] Supervisor: Antwan Rice MD Chloride [Moles/Vol] 102 mmol/L Normal 98-107 [facility] Comment on above: Performed By: #### Mandy Waller, PRCAL, CDP, BMPX #### [facility] [address] [place] [phone] [employer] Supervisor: Antwan Rice MD CO2 [Moles/Vol] 20 mmol/L Normal 20-31 [facility] Comment on above: Performed By: #### Mandy Waller, PRCAL, CDP, BMPX #### [employer] [address] [place] [address] [employer] Supervisor: Antwan Rice MD Creatinine [Mass/Vol] 0.8 mg/dL Normal 0.50-0.90 [facility] Comment on above: Performed By: #### Mandy G, PRCAL, CDP, BMPX #### [employer] [address] [place] [address] [employer] Supervisor: Antwan Rice MD GFR/1.73 sq M.predicted among non-blacks MDRD (S/P/Bld) [Vol rate/Area] 85 mL/min/{1.73_m2} Normal >60 [facility] Comment on above: Result Comment: These results are not intended for use in patients <18 years of age. eGFR results are calculated without a race factor using the 2020 CKD-EPI equation. Careful clinical correlation is recommended, particularly when comparing to results calculated using previous equations. The CKD-EPI equation is less accurate in patients with extremes of muscle mass, extra-renal metabolism of creatine, excessive creatine ingestion, or following therapy that affects renal tubular secretion. Performed By: #### M G, PRCAL, CDP, BMPX #### [facility] [address] [place] [phone] [employer] Supervisor: Antwan Rice MD Glucose [Mass/Vol] 117 mg/dL High 74-99 [facility] Comment on above: Performed By: #### M G, PRCAL, CDP, BMPX #### [facility] [address] [place] [address] [employer] Supervisor: Antwan Rice MD Potassium [Moles/Vol] 3.5 mmol/L Low 3.7-5.3 [facility] Comment on above: Result Comment: SPEC IMEN SLIGHTLY HEMOLYZED, RESULTS MAY BE ADVERSELY AFFECTED. Performed By: #### M G, PRCAL, CDP, BMPX #### [facility] [address] [place] [address] [employer] Supervisor: Antwan Rice MD Sodium [Moles/Vol] 138 mmol/L Normal 136-145 [facility] Comment on above: Performed By: #### M G, PRCAL, CDP, BMPX #### [facility] [address] [place] [address] [employer] Supervisor: Antwan Rice MD Urea nitrogen [Mass/Vol] 17 mg/dL Normal 6-20 [facility] Comment on above: Performed By: #### M G, PRCAL, CDP, BMPX #### [facility] [address] [place] [address] [employer] Supervisor: Antwan Rice MD CBC with Diffon 03-03-2024 Abs. Basophil <0.03 Normal 0.00-0.20 [facility] Comment on above: Performed By: #### M G, PRCAL, CDP, BMPX #### [facility] [address] [place] [address] [employer] Supervisor: Antwan Rice MD Abs. Eosinophil <0.03 Normal 0.00-0.44 [facility] Comment on above: Performed By: #### M G, PRCAL, CDP, BMPX #### [facility] [address] [place] [address] [employer] Supervisor: Antwan Rice MD Abs.Imm.Granulocyte 0.08 k/uL Normal 0.00-0.30 [facility] Comment on above: Performed By: #### M G, PRCAL, CDP, BMPX #### [facility] [address] [place] [phone] [employer] Supervisor: Antwan Rice MD Abs.Neutrophil (Seg) 15.65 k/uL High 1.50-8.10 [facility] Comment on above: Performed By: #### M G, PRCAL, CDP, BMPX #### [address] [address] [employer] Supervisor: Antwan Rice MD Basophils/100 WBC (Bld) 0 % Normal 0-2 [facility] Comment on above: Performed By: #### M G, PRCAL, CDP, BMPX #### [facility] [address] [place] [address] [employer] Supervisor: Antwan Rice MD Eosinophils/100 WBC (Bld) 0 % Low 1-4 [facility] Comment on above: Performed By: #### M G, PRCAL, CDP, BMPX #### [facility] [address] [place] [address] [employer] Supervisor: Antwan Rice MD Erythrocyte distribution width (RBC) [Ratio] 13.7 % Normal 11.8-14.4 [facility] Comment on above: Performed By: #### M G, PRCAL, CDP, BMPX #### [facility] [address] [place] [address] [employer] Supervisor: Antwan Rice MD Hematocrit (Bld) [Volume fraction] 38.3 % Normal 36.3-47.1 [facility] Comment on above: Performed By: #### M G, PRCAL, CDP, BMPX #### [facility] [address] [place] [address] [employer] Supervisor: Antwan Rice MD Hemoglobin (Bld) [Mass/Vol] 12.6 g/dL Normal 11.9-15.1 [facility] Comment on above: Performed By: #### M G, PRCAL, CDP, BMPX #### [facility] [address] [place] [address] [employer] Supervisor: Antwan Rice MD Immature granulocytes/100 WBC (Bld) 1 % High 0 [facility] Comment on above: Performed By: #### Mandy Waller, PRCAL, CDP, BMPX #### [facility] [address] [place] [address] [employer] Supervisor: Antwan Rice MD Lymphocytes (Bld) [#/Vol] 1.02 10*3/uL Low 1.10-3.70 [facility] Comment on above: Performed By: #### M G, PRCAL, CDP, BMPX #### [facility] [address] [place] [address] [employer] Supervisor: Antwan Rice MD Lymphocytes/100 WBC (Bld) 6 % Low 24-43 [facility] Comment on above: Performed By: #### M G, PRCAL, CDP, BMPX #### [facility] [address] [place] [address] 28[address] [employer] Supervisor: Antwan Rice MD MCH (RBC) [Entitic mass] 28.0 pg Normal 25.2-33.5 [facility] Comment on above: Performed By: #### M Christin, PRCAL, CDP, BMPX #### [address] [address] [employer] Supervisor: Antwan Rice MD MCHC (RBC) [Mass/Vol] 32.9 g/dL Normal 28.4-34.8 [facility] Comment on above: Performed By: #### M G, PRCAL, CDP, BMPX #### [address] [address] [employer] Supervisor: Antwan Rice MD MCV (RBC) [Entitic vol] 85.1 fL Normal 82.6-102.9 [facility] Comment on above: Performed By: #### Mandy G, PRCAL, CDP, BMPX #### [address] [address] [employer] Supervisor: Antwan Rice MD Monocytes (Bld) [#/Vol] 0.36 10*3/uL Normal 0.10-1.20 [facility] Comment on above: Performed By: #### Mandy Waller, PRCAL, CDP, BMPX #### [address] [address] [employer] Supervisor: Antwan Rice MD Monocytes/100 WBC (Bld) 2 % Low 3-12 [facility] Comment on above: Performed By: #### M G, PRCAL, CDP, BMPX #### [facility] [address] [place] [address] 03916 [employer] Supervisor: Antwan Rice MD Neutrophil (Seg) 91 % High 36-65 [facility] Comment on above: Performed By: #### M G, PRCAL, CDP, BMPX #### [address] [address] [employer] Supervisor: Antwan Rice MD NRBC Automated 0.0 per 100 WBC Normal 0.0 [facility] Comment on above: Performed By: #### M G, PRCAL, CDP, BMPX #### [facility] [address] [place] [address] [employer] Supervisor: Antwan Rice MD Platelet mean volume (Bld) [Entitic vol] 9.6 fL Normal 8.1-13.5 [facility] Comment on above: Performed By: #### M G, PRCAL, CDP, BMPX #### [facility] [address] [place] [address] 5[address]13 [employer] Supervisor: Antwan Rice MD Platelets (Bld) [#/Vol] 287 10*3/uL Normal 138-453 [facility] Comment on above: Performed By: #### M G, PRCAL, CDP, BMPX #### [facility] [address] [place] [address]140 [employer] Supervisor: Antwan Rice MD RBC (Bld) [#/Vol] 4.50 10*6/uL Normal 3.95-5.11 [facility] Comment on above: Performed By: #### M G, PRCAL, CDP, BMPX #### [facility] [address] [place] [address] 76184 [employer] Supervisor: Antwan Rice MD WBC (Bld) [#/Vol] 17.1 10*3/uL High 3.5-11.3 [facility] Comment on above: Performed By: #### M G, PRCAL, CDP, BMPX #### [facility] [address] [place] [address] [employer] Supervisor: Antwan Rice MD Comp Metabolic Pr/rfx MGon 0 03-03-2024 Albumin [Mass/Vol] 4.3 g/dL Normal 3.5-5.2 [facility] Comment on above: Performed By: #### C MPX, MG #### [facility] [address] [place] [address] [phone] [employer] Supervisor: Antwan Rice MD Albumin/Glob Ratio 1.0 Normal 1.0-2.5 [facility] Comment on above: Performed By: #### C MPX, MG #### [facility] [address] [place] [address]8092 [employer] Supervisor: Antwan Rice MD Alkaline Phos 102 U/L Normal 35-104 [facility] Comment on above: Performed By: #### C MPX, MG #### [facility] [address] [place] [address] [employer] Supervisor: Antwan Rice MD ALT [Catalytic activity/Vol] 7 U/L Low 10-35 [facility] Comment on above: Performed By: #### C MPX, MG #### [address] [address] [employer] Supervisor: Antwan Rice MD Anion gap [Moles/Vol] 17 mmol/L High 9-16 [facility] Comment on above: Performed By: #### C MPX, MG #### [address] [address] [employer] Supervisor: Antwan Rice MD AST [Catalytic activity/Vol] 17 U/L Normal 10-35 [facility] Comment on above: Performed By: #### C MPX, MG #### [address] [address] [employer] Supervisor: Antwan Rice MD Bilirubin [Mass/Vol] 0.3 mg/dL Normal 0.00-1.20 [facility] Comment on above: Performed By: #### C MPX, MG #### [facility] [address] [place] [address] [employer] Supervisor: Antwan Rice MD Calcium [Mass/Vol] 9.5 mg/dL Normal 8.6-10.4 [facility] Comment on above: Performed By: #### C MPX, MG #### [facility] [address] [place] [address] [employer] Supervisor: Antwan Rice MD Chloride [Moles/Vol] 100 mmol/L Normal 98-107 [facility] Comment on above: Performed By: #### C MPX, MG #### [facility] [address] [place] [address] [employer] Supervisor: Antwan Rice MD CO2 [Moles/Vol] 20 mmol/L Normal 20-31 [facility] Comment on above: Performed By: #### C MPX, MG #### [facility] [address] [place] [address] [employer] Supervisor: Antwan Rice MD Creatinine [Mass/Vol] 0.8 mg/dL Normal 0.50-0.90 [facility] Comment on above: Performed By: #### C MPX, MG #### [address] [address] [employer] Supervisor: Antwan Rice MD GFR/1.73 sq M.predicted among non-blacks MDRD (S/P/Bld) [Vol rate/Area] mL/min/{1.73_m2} Normal >60 [facility] Comment on above: Result Comment: These results are not intended for use in patients <18 years of age. eGFR results are calculated without a race factor using the 2020 CKD-EPI equation. Careful clinical correlation is recommended, particularly when comparing to results calculated using previous equations. The CKD-EPI equation is less accurate in patients with extremes of muscle mass, extra-renal metabolism of creatine, excessive creatine ingestion, or following therapy that affects renal tubular secretion. Performed By: #### C MPX, MG #### [address] [address] [employer] Supervisor: Antwan Rice MD Glucose [Mass/Vol] 132 mg/dL High 74-99 [facility] Comment on above: Performed By: #### C MPX, MG #### [facility] [address] [place] [address] [employer] Supervisor: Antwan Rice MD Potassium [Moles/Vol] 3.5 mmol/L Low 3.7-5.3 [facility] Comment on above: Performed By: #### C MPX, MG #### [facility] [address] [place] [address] [employer] Supervisor: Antwan Rice MD Protein [Mass/Vol] 7.8 g/dL Normal 6.6-8.7 [facility] Comment on above: Performed By: #### C MPX, MG #### [facility] [address] [place] [address] [employer] Supervisor: Antwan Rice MD Sodium [Moles/Vol] 137 mmol/L Normal 136-145 [facility] Comment on above: Performed By: #### C MPX, MG #### [facility] [address] [place] [address] [employer] Supervisor: Antwan Rice MD Urea nitrogen [Mass/Vol] 11 mg/dL Normal 6-20 [facility] Comment on above: Performed By: #### C MPX, MG #### [facility] [address] [place] [address] [employer] Supervisor: Antwan Rice MD Magnesiumon 03-03-2024 Magnesium [Mass/Vol] 2.4 mg/dL Normal 1.6-2.6 [facility] Comment on above: Performed By: #### M G, PRCAL, CDP, BMPX #### [facility] [address] [place] [address] [employer] Supervisor: Antwan Rice MD Magnesium [Mass/Vol] 2.4 mg/dL Normal 1.6-2.6 [facility] Comment on above: Performed By: #### C MPX, MG #### [facility] [address] [place] [address] [phone] [employer] Supervisor: Antwan Rice MD Procalcitoninon 03-03-2024 Procalcitonin 0.13 ng/mL High 0.00-0.09 [facility] Comment on above: Result Comment: Suspected Sepsis: <0.50 ng/mL Low likelihood of sepsis. 0.50-2.00 ng/mL Increased likelihood of sepsis. Antibiotics encouraged. >2.00 ng/mL High risk of sepsis/shock. Antibiotics strongly encouraged. Suspected Lower Resp Tract Infections: <0.24 ng/mL Low likelihood of bacterial infection. >0.24 ng/mL Increased likelihood of bacterial infection. Antibiotics encouraged. With successful antibiotic therapy, PCT levels should decrease rapidly. (Half-life of 24 to 36 hours.) Procalcitonin values from samples collected within the first 6 hours of systemic infection may still be low. Retesting may be indicated. Values from day 1 and day 4 can be entered into the Change in Procalcitonin Calculator ([email or web address]-plxmdcuicq.Thermal Nomad) to determine the patient's Mortality Risk Prognosis In healthy neonates, plasma Procalcitonin (PCT) concentrations increase gradually after , reaching peak values at about 24 hours of age then decrease to normal values below 0.5 ng/mL by 48-72 hours of age. Performed By: #### M G, PRCAL, CDP, BMPX #### [facility] [address] [place], [place] [phone] [employer] Supervisor: Antwan Rice MD Alanine aminotransferase [En zymatic activity/volume] in Serum or PlasmaOrdered By: Yayo Taylor on 12-06-2022 ALT [Catalytic activity/Vol] 12 U/L 7-52 [facility] Albumin [Mass/volume] in Ser um or Plasma by Bromocresol green (BCG) dye binding methoOrdered By: Yayo Taylor on 12-06-2022 Albumin BCG dye [Mass/Vol] 4.6 g/dL 3.5-5.7 [facility] Alkaline phosphatase [Enzyma tic activity/volume] in Serum or PlasmaOrdered By: Yayo Taylor on 12-06-2022 ALP [Catalytic activity/Vol] 79 U/L 34-104 [facility] Aspartate aminotransferase [ Enzymatic activity/volume] in Serum or PlasmaOrdered By: Yayo Taylor on 12-06-2022 AST [Catalytic activity/Vol] 15 U/L 13-39 [facility] Basophils Auto (Bld) [#/Vol] Ordered By: Yayo Taylor on 12-06-2022 Basophils (Bld) [#/Vol] 0.0 10*3/uL 0.0-0.2 [facility] Basophils/100 WBC Auto (Bld) Ordered By: Yayo Taylor on 12-06-2022 Basophils/100 WBC (Bld) 0.6 % . [facility] Bilirubin.total [Mass/volume ] in Serum or PlasmaOrdered By: Yayo Taylro on 12-06-2022 Bilirubin [Mass/Vol] 0.3 mg/dL 0.3-1.0 [facility] Calcium [Mass/volume] in Ser um or PlasmaOrdered By: Yayo Taylor on 12-06-2022 Calcium [Mass/Vol] 9.6 mg/dL 8.6-10.3 [facility] Carbon dioxide, total [Moles /volume] in Serum or PlasmaOrdered By: Yayo Taylor on 12-06-2022 CO2 [Moles/Vol] 29.0 mmol/L 21.0-31.[address] [facility] Chloride [Moles/volume] in S dot or PlasmaOrdered By: Yayo Taylor on 12-06-2022 Chloride [Moles/Vol] 105 mmol/L 98-107 [facility] Complete Blood Count Auto Di ffon 12-06-2022 Basophils (Bld) [#/Vol] 0.0 10*3/uL Normal 0.0-0.2 [facility] Comment on above: Performed By: #### C BC, CMP, ESR #### [facility] [address] [place] [address] [place] Basophils/100 WBC (Bld) 0.6 % Normal . [facility] Comment on above: Performed By: #### C BC, CMP, ESR #### [facility] [address] [place] [id number] [place] Eosinophils (Bld) [#/Vol] 0.2 10*3/uL Normal 0.0-0.45 [facility] Comment on above: Performed By: #### C BC, CMP, ESR #### [facility] [address] Eosinophils/100 WBC (Bld) 2.7 % Normal . [facility] Comment on above: Performed By: #### C BC, CMP, ESR #### [address] Erythrocyte distribution width (RBC) [Ratio] 14.2 % Normal 11.9-15.3 [facility] Comment on above: Performed By: #### C BC, CMP, ESR #### [address] Hematocrit (Bld) [Volume fraction] 38.4 % Normal 34.0-46.4 [facility] Comment on above: Performed By: #### C BC, CMP, ESR #### [address] Hemoglobin (Bld) [Mass/Vol] 12.7 g/dL Normal 11.8-15.4 [facility] Comment on above: Performed By: #### C BC, CMP, ESR #### [address] Lymphocytes (Bld) [#/Vol] 2.4 10*3/uL Normal 1.00-4.8 [facility] Comment on above: Performed By: #### C BC, CMP, ESR #### [address] Lymphocytes/100 WBC (Bld) 32.4 % Normal . [facility] Comment on above: Performed By: #### C BC, CMP, ESR #### [address] MCH (RBC) [Entitic mass] 28.5 pg Normal 24.7-34.3 [facility] Comment on above: Performed By: #### C BC, CMP, ESR #### [address] MCV (RBC) [Entitic vol] 86.3 fL Normal 80-100 [facility] Comment on above: Performed By: #### C BC, CMP, ESR #### [facility] [address] Mean Corpuscular HGB Conc 33.0 g/dL Normal 32.0-35.0 [facility] Comment on above: Performed By: #### C BC, CMP, ESR #### [facility] [address] Monocytes (Bld) [#/Vol] 0.5 10*3/uL Normal 0.0-0.8 [facility] Comment on above: Performed By: #### C BC, CMP, ESR #### [address] Monocytes/100 WBC (Bld) 6.3 % Normal . [facility] Comment on above: Performed By: #### C BC, CMP, ESR #### [address] Neutrophils (Bld) [#/Vol] 4.3 10*3/uL Normal 1.8-7.7 [facility] Comment on above: Performed By: #### C BC, CMP, ESR #### [address] Neutrophils/100 WBC (Bld) 58.0 % Normal . [facility] Comment on above: Performed By: #### C BC, CMP, ESR #### [facility] [address] NRBC% 0.0 /100{WBC} Normal 0-0.5 [facility] Comment on above: Performed By: #### C BC, CMP, ESR #### [facility] [address] Platelet mean volume (Bld) [Entitic vol] 7.6 fL Normal 6.3-10.7 [facility] Comment on above: Performed By: #### C BC, CMP, ESR #### [place] [address] Platelets (Bld) [#/Vol] 368 10*3/uL Normal 150-450 [facility] Comment on above: Performed By: #### C BC, CMP, ESR #### [address] RBC (Bld) [#/Vol] 4.45 10*6/uL Normal 3.60-5.00 [facility] Comment on above: Performed By: #### C BC, CMP, ESR #### [address] WBC (Bld) [#/Vol] 7.4 10*3/uL Normal 3.8-11.6 [facility] Comment on above: Performed By: #### C BC, CMP, ESR #### [address] Comprehensive Metabolic Pane nico 12-06-2022 Albumin [Mass/Vol] 4.6 g/dL Normal 3.5-5.7 [facility] Comment on above: Performed By: #### C BC, CMP, ESR #### [address] Albumin/Globulin [Mass ratio] 1.9 {ratio} Normal [facility] Comment on above: Performed By: #### C BC, CMP, ESR #### [address] ALP [Catalytic activity/Vol] 79 U/L Normal 34-104 [facility] Comment on above: Result Comment: PERF ORMED BY: [place] [address] PATHOLOGIST TRANSFILL TECHNICIAN FELICIANO PIERCE M.D. Performed By: #### C BC, CMP, ESR #### [address] ALT [Catalytic activity/Vol] 12 U/L Normal 7-52 [facility] Comment on above: Performed By: #### C BC, CMP, ESR #### [address] [address] [place] Anion gap [Moles/Vol] 10.1 mmol/L Normal 6.0-15.0 [facility] Comment on above: Performed By: #### C BC, CMP, ESR #### [facility] [address] AST [Catalytic activity/Vol] 15 U/L Normal 13-39 [facility] Comment on above: Performed By: #### C BC, CMP, ESR #### [facility] [address] [place] [address] [place] Bilirubin [Mass/Vol] 0.3 mg/dL Normal 0.3-1.0 [facility] Comment on above: Performed By: #### C BC, CMP, ESR #### [facility] [address] Calcium [Mass/Vol] 9.6 mg/dL Normal 8.6-10.3 [facility] Comment on above: Performed By: #### C BC, CMP, ESR #### [facility] [address] [place] [address] [place] Chloride [Moles/Vol] 105 mmol/L Normal 98-107 [facility] Comment on above: Performed By: #### C BC, CMP, ESR #### [facility] [address] [place] [address] [place] CO2 [Moles/Vol] 29.0 mmol/L Normal 21.0-31.[address] [facility] Comment on above: Performed By: #### C BC, CMP, ESR #### [facility] [address] [place] [address] [place] Creatinine [Mass/Vol] 0.89 mg/dL Normal 0.60-1.20 [facility] Comment on above: Performed By: #### C BC, CMP, ESR #### [facility] [address] [place] [address] [place] GFR/1.73 sq M.predicted MDRD (S/P/Bld) [Vol rate/Area] mL/min/{1.73_m2} [facility] Comment on above: Performed By: #### C BC, CMP, ESR #### [facility] [address] Globulin (S) [Mass/Vol] 2.4 g/dL Normal [facility] Comment on above: Performed By: #### C ELLIOTT CMP, ESR #### [facility] [address] Glucose [Mass/Vol] 83 mg/dL Normal 70-100 [facility] Comment on above: Result Comment: [facility] Glucose Reference Range is dependent on time and content of last meal. Glucose of more than 200 mg/dL in a nonstressed, ambulatory subject supports the diagnosis of Diabetes Mellitus. ADA recommended reference range Performed By: #### C SANTINO GALLAGHER, ESR #### [facility] [address] Potassium [Moles/Vol] 4.1 mmol/L Normal 3.5-5.1 [facility] Comment on above: Performed By: #### C ELLIOTT CMP, ESR #### [facility] [address] Protein [Mass/Vol] 7.0 g/dL Normal 6.4-8.9 [facility] Comment on above: Performed By: #### C ELLIOTT CMP, ESR #### [facility] [address] Sodium [Moles/Vol] 140 mmol/L Normal 136-145 [facility] Comment on above: Performed By: #### C ELLIOTT CMP, ESR #### [facility] [address] [place] [address] [place] Urea nitrogen [Mass/Vol] 15 mg/dL Normal 7-25 [facility] Comment on above: Performed By: #### C ELLIOTT CMP, ESR #### [facility] [address] [place] [address] [place] Creatinine [Mass/volume] in Serum or PlasmaOrdered By: Yayo Taylor on 12-06-2022 Creatinine [Mass/Vol] 0.89 mg/dL 0.60-1.20 [facility] Eosinophils Auto (Bld) [#/Vo l]Ordered By: Yayo Taylor on 12-06-2022 Eosinophils (Bld) [#/Vol] 0.2 10*3/uL 0.0-0.45 [facility] Eosinophils/100 WBC Auto (Bl d)Ordered By: Yayo Talyor on 12-06-2022 Eosinophils/100 WBC (Bld) 2.7 % . [facility] Erythrocyte Sedimentation Ra cristela 12-06-2022 ESR (Bld) [Velocity] 27 mm/h Normal 0-29 [facility] Comment on above: Result Comment: PERF ORMED BY: [place] [address] PATHOLOGIST TRANSFILL TECHNICIAN FELICIANO PIERCE M.D. Performed By: #### C BC, CMP, ESR #### [address] Erythrocyte distribution wid th Auto (RBC) [Ratio]Ordered By: Yayo Taylor on 12-06-2022 Erythrocyte distribution width (RBC) [Ratio] 14.2 % 11.9-15.3 [facility] Erythrocyte sedimentation ra te by Photometric methodOrdered By: Yayo Taylor on 12-06-2022 ESR Photometric method (Bld) [Velocity] 27 mm/hr 0-29 [facility] Globulin Calc (S) [Mass/Vol] Ordered By: Yayo Taylor on 12-06-2022 Globulin (S) [Mass/Vol] 2.4 g/dL [facility] Glucose [Mass/volume] in Ser um or PlasmaOrdered By: Yayo Taylor on 12-06-2022 Glucose [Mass/Vol] 83 mg/dL 70-100 [facility] Comment on above: ADA recommended refe rence rangeRandom Glucose Reference Range is dependent on time and content of last meal. Glucose of more than 200 mg/dL in a nonstressed, ambulatory subject supports the diagnosis of Diabetes Mellitus. Hematocrit Auto (Bld) [Volum e fraction]Ordered By: Yayo Taylor on 12-06-2022 Hematocrit (Bld) [Volume fraction] 38.4 % 34.0-46.4 [facility] Hemoglobin [Mass/volume] in BloodOrdered By: Yayo Taylor on 12-06-2022 Hemoglobin (Bld) [Mass/Vol] 12.7 g/dL 11.8-15.4 [facility] Leukocytes [#/volume] correc jin for nucleated erythrocytes in Blood by Automated counOrdered By: Yaoy Taylor on 12-06-2022 WBC corrected for nucl RBC Auto (Bld) [#/Vol] 7.4 10*3/uL 3.8-11.6 [facility] Lymphocytes Auto (Bld) [#/Vo l]Ordered By: Yayo Taylor on 12-06-2022 Lymphocytes (Bld) [#/Vol] 2.4 10*3/uL 1.00-4.8 [facility] Lymphocytes/100 WBC Auto (Bl d)Ordered By: Yayo Taylor on 12-06-2022 Lymphocytes/100 WBC (Bld) 32.4 % . [facility] MCH Auto (RBC) [Entitic mass ]Ordered By: Yayo Taylor on 12-06-2022 MCH (RBC) [Entitic mass] 28.5 pg 24.7-34.3 [facility] MCHC Auto (RBC) [Mass/Vol]Or dered By: Yayo Taylor on 12-06-2022 MCHC (RBC) [Mass/Vol] 33.0 g/dL 32.0-35.0 [facility] MCV Auto (RBC) [Entitic vol] Ordered By: Yayo Taylor on 12-06-2022 MCV (RBC) [Entitic vol] 86.3 fL 80-100 [facility] Monocytes Auto (Bld) [#/Vol] Ordered By: Yayo Taylor on 12-06-2022 Monocytes (Bld) [#/Vol] 0.5 10*3/uL 0.0-0.8 [facility] Monocytes/100 WBC Auto (Bld) Ordered By: Yayo Taylor on 12-06-2022 Monocytes/100 WBC (Bld) 6.3 % . [facility] Neutrophils Auto (Bld) [#/Vo l]Ordered By: Yayo Taylor on 12-06-2022 Neutrophils (Bld) [#/Vol] 4.3 10*3/uL 1.8-7.7 [facility] Neutrophils/100 WBC Auto (Bl d)Ordered By: Yayo Taylor on 12-06-2022 Neutrophils/100 WBC (Bld) 58.0 % . [facility] No Panel InformationOrdered By: Yayo Taylor on 12-06-2022 Estimated GFR (CKD-EPI) > 60.0 mL/Min [facility] Creatinine Clearance (Chem N/A [facility] Nucleated erythrocytes [Pres ence] in Blood by Automated countOrdered By: Yayo Taylor on 12-06-2022 Nucleated RBC Auto Ql (Bld) 0.0 /100{WBC} 0-0.5 [facility] Platelet mean volume Auto (B ld) [Entitic vol]Ordered By: Yayo Taylor on 12-06-2022 Platelet mean volume (Bld) [Entitic vol] 7.6 fL 6.3-10.7 [facility] Platelets Auto (Bld) [#/Vol] Ordered By: Yayo Taylor on 12-06-2022 Platelets (Bld) [#/Vol] 368 10*3/uL 150-450 [facility] Potassium [Moles/volume] in Serum or PlasmaOrdered By: Yayo Taylor on 12-06-2022 Potassium [Moles/Vol] 4.1 mmol/L 3.5-5.1 [facility] Protein [Mass/volume] in Ser um or PlasmaOrdered By: Yayo Taylor on 12-06-2022 Protein [Mass/Vol] 7.0 g/dL 6.4-8.9 [facility] RBC Auto (Bld) [#/Vol]Ordere d By: Yayo Taylor on 12-06-2022 RBC (Bld) [#/Vol] 4.45 10*6/uL 3.60-5.00 [facility] Serum or plasma albumin/glob ulin mass ratioOrdered By: Yayo Taylor on 12-06-2022 Albumin/Globulin [Mass ratio] 1.9 {ratio} [facility] Serum or plasma anion gap de terminationOrdered By: Yayo Taylor on 12-06-2022 Anion gap [Moles/Vol] 10.1 mmol/L 6.0-15.0 [facility] Sodium [Moles/volume] in Ser um or PlasmaOrdered By: Yayo Taylor on 12-06-2022 Sodium [Moles/Vol] 140 mmol/L 136-145 [facility] Urea nitrogen [Mass/volume] in Serum or PlasmaOrdered By: Yayo Taylor on 12-06-2022 Urea nitrogen [Mass/Vol] 15 mg/dL 7-25 [facility] WBC Auto (Bld) [#/Vol]Ordere d By: Yayo Taylor on 12-06-2022 WBC (Bld) [#/Vol] 7.4 10*3/uL 3.8-11.6 [facility] Alanine aminotransferase [En zymatic activity/volume] in Serum or PlasmaOrdered By: Yayo Taylor on 10-03-2022 ALT [Catalytic activity/Vol] 11 U/L 7-52 [facility] Albumin [Mass/volume] in Ser um or Plasma by Bromocresol green (BCG) dye binding methoOrdered By: Yayo Taylor on 10-03-2022 Albumin BCG dye [Mass/Vol] 4.1 g/dL 3.5-5.7 [facility] Alkaline phosphatase [Enzyma tic activity/volume] in Serum or PlasmaOrdered By: Yayo Taylor on 10-03-2022 ALP [Catalytic activity/Vol] 84 U/L 34-104 [facility] Aspartate aminotransferase [ Enzymatic activity/volume] in Serum or PlasmaOrdered By: Yayo Taylor on 10-03-2022 AST [Catalytic activity/Vol] 16 U/L 13-39 [facility] Basophils Auto (Bld) [#/Vol] Ordered By: Yayo Taylor on 10-03-2022 Basophils (Bld) [#/Vol] 0.1 10*3/uL 0.0-0.2 [facility] Basophils/100 WBC Auto (Bld) Ordered By: Yayo Taylor on 10-03-2022 Basophils/100 WBC (Bld) 0.9 % . [facility] Bilirubin.total [Mass/volume ] in Serum or PlasmaOrdered By: Yayo Taylor on 10-03-2022 Bilirubin [Mass/Vol] 0.3 mg/dL 0.3-1.0 [facility] Calcium [Mass/volume] in Ser um or PlasmaOrdered By: Yayo Brandon on 10-03-2022 Calcium [Mass/Vol] 8.5 mg/dL 8.6-10.3 [facility] Carbon dioxide, total [Moles /volume] in Serum or PlasmaOrdered By: Ayyoankita Taylor on 10-03-2022 CO2 [Moles/Vol] 27.2 mmol/L 21.0-31.[address] [facility] Chloride [Moles/volume] in S dot or PlasmaOrdered By: Yayoankita Taylor on 10-03-2022 Chloride [Moles/Vol] 106 mmol/L 98-107 [facility] Complete Blood Count Auto Di ffon 10-03-2022 Basophils (Bld) [#/Vol] 0.1 10*3/uL Normal 0.0-0.2 [facility] Comment on above: Performed By: #### C BC, CMP, ESR #### [address] Basophils/100 WBC (Bld) 0.9 % Normal . [facility] Comment on above: Performed By: #### C BC, CMP, ESR #### [place] [address] [place] Eosinophils (Bld) [#/Vol] 0.4 10*3/uL Normal 0.0-0.45 [facility] Comment on above: Performed By: #### C BC, CMP, ESR #### [facility] [address] [place] [address] [place] Eosinophils/100 WBC (Bld) 5.0 % Normal . [facility] Comment on above: Performed By: #### C BC, CMP, ESR #### [facility] [address] Erythrocyte distribution width (RBC) [Ratio] 14.7 % Normal 11.9-15.3 [facility] Comment on above: Performed By: #### C BC, CMP, ESR #### [facility] [address] Hematocrit (Bld) [Volume fraction] 36.3 % Normal 34.0-46.4 [facility] Comment on above: Performed By: #### C BC, CMP, ESR #### [facility] [address] Hemoglobin (Bld) [Mass/Vol] 12.3 g/dL Normal 11.8-15.4 [facility] Comment on above: Performed By: #### C BC, CMP, ESR #### [facility] [address] Lymphocytes (Bld) [#/Vol] 2.1 10*3/uL Normal 1.00-4.8 [facility] Comment on above: Performed By: #### C BC, CMP, ESR #### [address] Lymphocytes/100 WBC (Bld) 29.3 % Normal . [facility] Comment on above: Performed By: #### C BC, CMP, ESR #### [address] MCH (RBC) [Entitic mass] 29.4 pg Normal 24.7-34.3 [facility] Comment on above: Performed By: #### C BC, CMP, ESR #### [address] MCV (RBC) [Entitic vol] 86.4 fL Normal 80-100 [facility] Comment on above: Performed By: #### C BC, CMP, ESR #### [address] Mean Corpuscular HGB Conc 34.0 g/dL Normal 32.0-35.0 [facility] Comment on above: Performed By: #### C BC, CMP, ESR #### [address] Monocytes (Bld) [#/Vol] 0.5 10*3/uL Normal 0.0-0.8 [facility] Comment on above: Performed By: #### C BC, CMP, ESR #### [facility] [address] [place] [id number] [place] Monocytes/100 WBC (Bld) 7.3 % Normal . [facility] Comment on above: Performed By: #### C BC, CMP, ESR #### [facility] [address] [place] [address] [place] Neutrophils (Bld) [#/Vol] 4.1 10*3/uL Normal 1.8-7.7 [facility] Comment on above: Performed By: #### C BC, CMP, ESR #### [facility] [address] [place] [address] [place] Neutrophils/100 WBC (Bld) 57.5 % Normal . [facility] Comment on above: Performed By: #### C BC, CMP, ESR #### [facility] [address] NRBC% 0.3 /100{WBC} Normal 0-0.5 [facility] Comment on above: Performed By: #### C BC, CMP, ESR #### [facility] [address] [place] [address] [place] Platelet mean volume (Bld) [Entitic vol] 7.9 fL Normal 6.3-10.7 [facility] Comment on above: Performed By: #### C BC, CMP, ESR #### [facility] [address] [place] [address] [place] Platelets (Bld) [#/Vol] 369 10*3/uL Normal 150-450 [facility] Comment on above: Performed By: #### C BC, CMP, ESR #### [facility] [address] [place] [address] [place] RBC (Bld) [#/Vol] 4.20 10*6/uL Normal 3.60-5.00 [facility] Comment on above: Performed By: #### C BC, CMP, ESR #### [facility] [address] [place] [id number] [place] WBC (Bld) [#/Vol] 7.1 10*3/uL Normal 3.8-11.6 [facility] Comment on above: Performed By: #### C BC, CMP, ESR #### [facility] [address] Comprehensive Metabolic Pane nico 10-03-2022 Albumin [Mass/Vol] 4.1 g/dL Normal 3.5-5.7 [facility] Comment on above: Performed By: #### C BC, CMP, ESR #### [facility] [address] Albumin/Globulin [Mass ratio] 1.6 {ratio} Normal [facility] Comment on above: Performed By: #### C BC, CMP, ESR #### [facility] [address] ALP [Catalytic activity/Vol] 84 U/L Normal 34-104 [facility] Comment on above: Result Comment: PERF ORMED BY: [place] [address] PATHOLOGIST TRANSFILL TECHNICIAN FELICIANO PIERCE M.D. Performed By: #### C BC, CMP, ESR #### [facility] [address] ALT [Catalytic activity/Vol] 11 U/L Normal 7-52 [facility] Comment on above: Performed By: #### C BC, CMP, ESR #### [facility] [address] Anion gap [Moles/Vol] 10.7 mmol/L Normal 6.0-15.0 [facility] Comment on above: Performed By: #### C BC, CMP, ESR #### [facility] [address] AST [Catalytic activity/Vol] 16 U/L Normal 13-39 [facility] Comment on above: Performed By: #### C BC, CMP, ESR #### [facility] [address] Bilirubin [Mass/Vol] 0.3 mg/dL Normal 0.3-1.0 [facility] Comment on above: Performed By: #### C BC, CMP, ESR #### [facility] [address] Calcium [Mass/Vol] 8.5 mg/dL Low 8.6-10.3 [facility] Comment on above: Performed By: #### C BC, CMP, ESR #### [facility] [address] Chloride [Moles/Vol] 106 mmol/L Normal 98-107 [facility] Comment on above: Performed By: #### C BC, CMP, ESR #### [facility] [address] CO2 [Moles/Vol] 27.2 mmol/L Normal 21.0-31.[address] [facility] Comment on above: Performed By: #### C ELLIOTT, CMP, ESR #### [facility] [address] Creatinine [Mass/Vol] 0.88 mg/dL Normal 0.60-1.20 [facility] Comment on above: Performed By: #### C BC, CMP, ESR #### [facility] [address] [place] [address] [place] GFR/1.73 sq M.predicted MDRD (S/P/Bld) [Vol rate/Area] mL/min/{1.73_m2} [facility] Comment on above: Performed By: #### C BC, CMP, ESR #### [facility] [address] Globulin (S) [Mass/Vol] 2.6 g/dL Normal [facility] Comment on above: Performed By: #### C BC, CMP, ESR #### [facility] [address] [place] [id number] [place] Glucose [Mass/Vol] 98 mg/dL Normal 70-100 [facility] Comment on above: Result Comment: [place] Glucose Reference Range is dependent on time and content of last meal. Glucose of more than 200 mg/dL in a nonstressed, ambulatory subject supports the diagnosis of Diabetes Mellitus. ADA recommended reference range Performed By: #### C BC, CMP, ESR #### [facility] [address] [place] [id number] [place] Potassium [Moles/Vol] 3.9 mmol/L Normal 3.5-5.1 [facility] Comment on above: Performed By: #### C BC, CMP, ESR #### [facility] [address] [place] [id number] [place] Protein [Mass/Vol] 6.7 g/dL Normal 6.4-8.9 [facility] Comment on above: Performed By: #### C BC, CMP, ESR #### [facility] [address] [place] [address] [place] Sodium [Moles/Vol] 140 mmol/L Normal 136-145 [facility] Comment on above: Performed By: #### C BC, CMP, ESR #### [facility] [address] [place] [address] [place] Urea nitrogen [Mass/Vol] 20 mg/dL Normal 7-25 [facility] Comment on above: Performed By: #### C BC, CMP, ESR #### [facility] [address] [place] [address] [place] Creatinine [Mass/volume] in Serum or PlasmaOrdered By: Yayo Taylor on 10-03-2022 Creatinine [Mass/Vol] 0.88 mg/dL 0.60-1.20 [facility] Eosinophils Auto (Bld) [#/Vo l]Ordered By: Yayo Taylor on 10-03-2022 Eosinophils (Bld) [#/Vol] 0.4 10*3/uL 0.0-0.45 [facility] Eosinophils/100 WBC Auto (Bl d)Ordered By: Yayo Taylor on 10-03-2022 Eosinophils/100 WBC (Bld) 5.0 % . [facility] Erythrocyte Sedimentation Ra cristela 10-03-2022 ESR (Bld) [Velocity] 22 mm/h Normal 0-29 [facility] Comment on above: Result Comment: PERF ORMED BY: [place] [address] PATHOLOGIST TRANSFILL TECHNICIAN FELICIANO PIERCE M.D. Performed By: #### C BC, CMP, ESR #### [facility] [address] Erythrocyte distribution wid th Auto (RBC) [Ratio]Ordered By: Yayo Taylor on 10-03-2022 Erythrocyte distribution width (RBC) [Ratio] 14.7 % 11.9-15.3 [facility] Erythrocyte sedimentation ra te by Photometric methodOrdered By: Yayo Taylor on 10-03-2022 ESR Photometric method (Bld) [Velocity] 22 mm/hr 0-29 [facility] Globulin Calc (S) [Mass/Vol] Ordered By: Yayo Taylor on 10-03-2022 Globulin (S) [Mass/Vol] 2.6 g/dL [facility] Glucose [Mass/volume] in Ser um or PlasmaOrdered By: Yayo Taylor on 10-03-2022 Glucose [Mass/Vol] 98 mg/dL 70-100 [facility] Comment on above: ADA recommended refe rence rangeRandom Glucose Reference Range is dependent on time and content of last meal. Glucose of more than 200 mg/dL in a nonstressed, ambulatory subject supports the diagnosis of Diabetes Mellitus. Hematocrit Auto (Bld) [Volum e fraction]Ordered By: Yayo Taylor on 10-03-2022 Hematocrit (Bld) [Volume fraction] 36.3 % 34.0-46.4 [facility] Hemoglobin [Mass/volume] in BloodOrdered By: Yayo Taylor on 10-03-2022 Hemoglobin (Bld) [Mass/Vol] 12.3 g/dL 11.8-15.4 [facility] Leukocytes [#/volume] correc jin for nucleated erythrocytes in Blood by Automated counOrdered By: Yayo Taylor on 10-03-2022 WBC corrected for nucl RBC Auto (Bld) [#/Vol] 7.1 10*3/uL 3.8-11.6 [facility] Lymphocytes Auto (Bld) [#/Vo l]Ordered By: Yayo Taylor on 10-03-2022 Lymphocytes (Bld) [#/Vol] 2.1 10*3/uL 1.00-4.8 [facility] Lymphocytes/100 WBC Auto (Bl d)Ordered By: Yayo Taylor on 10-03-2022 Lymphocytes/100 WBC (Bld) 29.3 % . [facility] MCH Auto (RBC) [Entitic mass ]Ordered By: Yayo Taylor on 10-03-2022 MCH (RBC) [Entitic mass] 29.4 pg 24.7-34.3 [facility] MCHC Auto (RBC) [Mass/Vol]Or dered By: Yayo Taylor on 10-03-2022 MCHC (RBC) [Mass/Vol] 34.0 g/dL 32.0-35.0 [facility] MCV Auto (RBC) [Entitic vol] Ordered By: Yayo Taylor on 10-03-2022 MCV (RBC) [Entitic vol] 86.4 fL 80-100 [facility] Monocytes Auto (Bld) [#/Vol] Ordered By: Yayo Taylor on 10-03-2022 Monocytes (Bld) [#/Vol] 0.5 10*3/uL 0.0-0.8 [facility] Monocytes/100 WBC Auto (Bld) Ordered By: Yayo Taylor on 10-03-2022 Monocytes/100 WBC (Bld) 7.3 % . [facility] Neutrophils Auto (Bld) [#/Vo l]Ordered By: Yayo Taylor on 10-03-2022 Neutrophils (Bld) [#/Vol] 4.1 10*3/uL 1.8-7.7 [facility] Neutrophils/100 WBC Auto (Bl d)Ordered By: Yayo Taylor on 10-03-2022 Neutrophils/100 WBC (Bld) 57.5 % . [facility] No Panel InformationOrdered By: Yayo Taylor on 10-03-2022 Estimated GFR (CKD-EPI) > 60.0 mL/Min [facility] Creatinine Clearance (Chem N/A [facility] Nucleated erythrocytes [Pres ence] in Blood by Automated countOrdered By: Yayo Taylor on 10-03-2022 Nucleated RBC Auto Ql (Bld) 0.3 /100{WBC} 0-0.5 [facility] Platelet mean volume Auto (B ld) [Entitic vol]Ordered By: Yayo Taylor on 10-03-2022 Platelet mean volume (Bld) [Entitic vol] 7.9 fL 6.3-10.7 [facility] Platelets Auto (Bld) [#/Vol] Ordered By: Yayo Taylor on 10-03-2022 Platelets (Bld) [#/Vol] 369 10*3/uL 150-450 [facility] Potassium [Moles/volume] in Serum or PlasmaOrdered By: Yayo Taylor on 10-03-2022 Potassium [Moles/Vol] 3.9 mmol/L 3.5-5.1 [facility] Protein [Mass/volume] in Ser um or PlasmaOrdered By: Yayo Taylor on 10-03-2022 Protein [Mass/Vol] 6.7 g/dL 6.4-8.9 [facility] RBC Auto (Bld) [#/Vol]Ordere d By: Yayo Taylor on 10-03-2022 RBC (Bld) [#/Vol] 4.20 10*6/uL 3.60-5.00 [facility] Serum or plasma albumin/glob ulin mass ratioOrdered By: Yayo Taylor on 10-03-2022 Albumin/Globulin [Mass ratio] 1.6 {ratio} [facility] Serum or plasma anion gap de terminationOrdered By: Yayo Taylor on 10-03-2022 Anion gap [Moles/Vol] 10.7 mmol/L 6.0-15.0 [facility] Sodium [Moles/volume] in Ser um or PlasmaOrdered By: Yayo Taylor on 10-03-2022 Sodium [Moles/Vol] 140 mmol/L 136-145 [facility] Urea nitrogen [Mass/volume] in Serum or PlasmaOrdered By: Yayo Taylor on 10-03-2022 Urea nitrogen [Mass/Vol] 20 mg/dL 7-25 [facility] WBC Auto (Bld) [#/Vol]Ordere d By: Yayo Taylor on 10-03-2022 WBC (Bld) [#/Vol] 7.1 10*3/uL 3.8-11.6 [facility] US BREAST RIGHT LIMITEDon US BREAST RIGHT LIMITED Patient: MONET ORTEGA Exam Date: 08/18/2022 : 1970 Gender:F Ordering : TONI ROMERO 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 Luis Daniel Sin Basophils/100 WBC (Bld) 0.4 % Normal 0.2-2.0 [facility] Comment on above: Performed By: #### A ST, ALT, LIPID #### [facility] [address] [address] [address] Luis Daniel Sin EO # 0.2 103/ul Normal 0.0-0.7 [facility] Comment on above: Performed By: #### A ST, ALT, LIPID #### [facility] [address] [place] [address] Dr. Luis Daniel Sin Eosinophils/100 WBC (Bld) 2.3 % Normal 0.9-7.0 [facility] Comment on above: Performed By: #### A ST, ALT, LIPID #### [facility] [address] [place] [address] Dr. Luis Daniel Sin Erythrocyte distribution width (RBC) [Ratio] 13.7 % Normal 11.0-15.0 [facility] Comment on above: Performed By: #### A ST, ALT, LIPID #### [facility] [address] [place] [address] Dr. Luis Daniel Sin Hematocrit (Bld) [Volume fraction] 37.3 % Normal 36.0-48.0 [facility] Comment on above: Performed By: #### A ST, ALT, LIPID #### [facility] [address] [place] [address] Dr. Luis Daniel Sin Hemoglobin (Bld) [Mass/Vol] 12.3 g/dL Normal 12.0-16.0 [facility] Comment on above: Performed By: #### A ST, ALT, LIPID #### [facility] [address] [place] [address] Dr. Luis Daniel Sin IG # 0.02 10e3/ul Normal 0.00-0.03 [facility] Comment on above: Performed By: #### A ST, ALT, LIPID #### [facility] [address] [place] [address] Dr. Luis Daniel Sin IG % 0.2 % Normal 0.0-0.5 [facility] Comment on above: Performed By: #### A ST, ALT, LIPID #### [facility] [address] [place] [address] Dr. Luis Daniel Sin LYMPH # 2.9 103/ul Normal 1.2-3.8 [facility] Comment on above: Performed By: #### A ST, ALT, LIPID #### [facility] [address] [place] [address] Dr. Luis Daniel Sin Lymphocytes/100 WBC (Bld) 31.8 % Normal 20.5-60.0 [facility] Comment on above: Performed By: #### A ST, ALT, LIPID #### [facility] [address] [place] [address] Dr. Luis Daniel Sin MANUAL DIFF REQ NO Normal [facility] Comment on above: Performed By: #### A ST, ALT, LIPID #### [facility] [address] [place] [address] Dr. Luis Daniel Sin MCH (RBC) [Entitic mass] 28.1 pg Normal 26.7-34.0 [facility] Comment on above: Performed By: #### A ST, ALT, LIPID #### [facility] [address] [place] [address] Dr. Luis Daniel Sin MCHC (RBC) [Mass/Vol] 33.0 g/dL Normal 29.9-35.2 [facility] Comment on above: Performed By: #### A ST, ALT, LIPID #### [facility] [address] [place] [address] Dr. Luis Daniel Sin MCV (RBC) [Entitic vol] 85.2 fL Normal 81.0-99.0 [facility] Comment on above: Performed By: #### A ST, ALT, LIPID #### [facility] [address] [place] [address] Dr. Luis Daniel Sin MONO # 0.8 103/ul Normal 0.3-0.8 [facility] Comment on above: Performed By: #### A ST, ALT, LIPID #### [facility] [address] [place] [address] Dr. Luis Daniel Sin Monocytes/100 WBC (Bld) 8.4 % Normal 1.7-12.0 [facility] Comment on above: Performed By: #### A ST, ALT, LIPID #### [facility] [address] [place] [address] Dr. Luis Daniel Sin NEUT # 5.1 103/ul Normal 1.4-6.5 [facility] Comment on above: Performed By: #### A ST, ALT, LIPID #### [facility] [address] [place] [address] Dr. Luis Daniel Sin Neutrophils/100 WBC (Bld) 56.9 % Normal 43.0-75.0 [facility] Comment on above: Performed By: #### A ST, ALT, LIPID #### [facility] [address] [address] [address] Luis Daniel Sin Platelet mean volume (Bld) [Entitic vol] 9.0 fL Critically low 9.5-13.5 [facility] Comment on above: Performed By: #### A ST, ALT, LIPID #### [facility] [address] [address] [address] Luis Daniel Sin PLT 353 103/ul Normal 150-450 [facility] Comment on above: Performed By: #### A ST, ALT, LIPID #### [facility] [address] [address] [address] Luis Daniel Sin RBC 4.38 106/ul Normal 4.20-5.40 [facility] Comment on above: Performed By: #### A ST, ALT, LIPID #### [facility] [address] [address] [address] Luis Daniel Sin WBC 9.0 103/ul Normal 4.0-11.0 [facility] Comment on above: Performed By: #### A ST, ALT, LIPID #### [facility] [address] [place] [address] Dr. Luis Daniel Sin PROF 14(COMP METB)on 022 Albumin [Mass/Vol] 3.9 g/dL Normal 3.4-5.0 [facility] Comment on above: Performed By: #### C MP #### [facility] [address] [place] [address] Dr. Luis Daniel Sin Albumin/Globulin [Mass ratio] 1.0 {ratio} Normal [facility] Comment on above: Performed By: #### C MP #### [facility] [address] [place] [address] Dr. Luis Daniel Sin ALP [Catalytic activity/Vol] 94 U/L Normal 46-116 [facility] Comment on above: Performed By: #### C MP #### [facility] [address] [place] [address] Dr. Luis Daniel Sin ALT [Catalytic activity/Vol] 18 U/L Normal 14-59 [facility] Comment on above: Performed By: #### C MP #### [facility] [address] [address] [address] Luis Daniel Sin Anion gap [Moles/Vol] 12.2 mmol/L Normal [facility] Comment on above: Performed By: #### C MP #### [facility] [address] [address] [address] Luis Daniel Sin AST [Catalytic activity/Vol] 19 U/L Normal 15-37 [facility] Comment on above: Performed By: #### C MP #### [facility] [address] [address] [address] Luis Daniel Sin Bilirubin [Mass/Vol] 0.3 mg/dL Normal 0.2-1.0 [facility] Comment on above: Performed By: #### C MP #### [facility] [address] [address] [address] Luis Daniel Sin Calcium [Mass/Vol] 9.3 mg/dL Normal 8.5-10.1 [facility] Comment on above: Performed By: #### C MP #### [facility] [address] [address] [address] Luis Daniel Sin Chloride [Moles/Vol] 102 mmol/L Normal 98-107 [facility] Comment on above: Performed By: #### C MP #### [facility] [address] [address] [address] Luis Daniel Sin CO2 [Moles/Vol] 29.5 mmol/L Normal 21.0-32.0 [facility] Comment on above: Performed By: #### C MP #### [facility] [address] [address] [address] Luis Daniel Sin Creatinine [Mass/Vol] 0.93 mg/dL Normal 0.55-1.02 [facility] Comment on above: Performed By: #### C MP #### [facility] [address] [address] [address] Luis Daniel Sin EGFR-AF LIBERIAN >60 Normal >=60 [facility] Comment on above: Performed By: #### C MP #### [facility] [address] [address] [address] Luis Daniel Sin EGFR-NON AF LIBERIAN >60 Normal >=60 [facility] Comment on above: Performed By: #### C MP #### [facility] [address] [address] [address] Luis Daniel Sin Globulin (S) [Mass/Vol] 3.8 g/dL Normal [facility] Comment on above: Performed By: #### C MP #### [facility] [address] [address] [address] Luis Daniel Sin Glucose [Mass/Vol] 100 mg/dL Normal 74-106 [facility] Comment on above: Performed By: #### C MP #### [facility] [address] [place] [address] Dr. Luis Daniel Sin Potassium [Moles/Vol] 3.7 mmol/L Normal 3.5-5.1 [facility] Comment on above: Performed By: #### C MP #### [facility] [address] [place] [address] Dr. Luis Daniel Sin Protein [Mass/Vol] 7.7 g/dL Normal 6.4-8.2 [facility] Comment on above: Performed By: #### C MP #### [facility] [address] [place] [address] Dr. Luis Daniel Sin Sodium [Moles/Vol] 140 mmol/L Normal 136-[address] [facility] Comment on above: Performed By: #### C MP #### [facility] [address] [address] [address] Luis Daniel Sin Urea nitrogen [Mass/Vol] 18.0 mg/dL Normal 7.0-18.0 [facility] Comment on above: Performed By: #### C MP #### [facility] [address] [place] [address] Dr. Luis Daniel Sin Urea nitrogen/Creatinine [Mass ratio] 19.4 mg/mg Normal [facility] Comment on above: Performed By: #### C MP #### [facility] [address] [address] [address] Luis Daniel Sin [facility] 54 mm/hr Critically high <=30 [facility] Comment on above: Performed By: #### A ST, ALT, LIPID #### [facility] [address] [place] [address] Dr. Luis Daniel Sin CBC AUTO DIFFon 02-25-2022 BASO # 0.1 103/ul Normal 0.0-0.1 [facility] Comment on above: Performed By: #### C BC #### [facility] [address] [place] [address] Dr. Luis Daniel Sin Basophils/100 WBC (Bld) 0.7 % Normal 0.2-2.0 [facility] Comment on above: Performed By: #### C BC #### [facility] [address] [place] [address] Dr. Luis Daniel Sin EO # 0.2 103/ul Normal 0.0-0.7 [facility] Comment on above: Performed By: #### C BC #### [facility] [address] [place] [address] Dr. Luis Daniel Sin Eosinophils/100 WBC (Bld) 2.5 % Normal 0.9-7.0 [facility] Comment on above: Performed By: #### C BC #### [facility] [address] [place] [address] Dr. Luis Daniel Sin Erythrocyte distribution width (RBC) [Ratio] 14.2 % Normal 11.0-15.0 [facility] Comment on above: Performed By: #### C BC #### [facility] [address] [place] [address] Dr. Luis Daniel Sin Hematocrit (Bld) [Volume fraction] 41.1 % Normal 36.0-48.0 [facility] Comment on above: Performed By: #### C BC #### [facility] [address] [place] [address] Dr. Luis Daniel Sin Hemoglobin (Bld) [Mass/Vol] 13.5 g/dL Normal 12.0-16.0 [facility] Comment on above: Performed By: #### C BC #### [facility] [address] [place] [address] Dr. Luis Daniel Sin IG # 0.03 10e3/ul Normal 0.00-0.03 [facility] Comment on above: Performed By: #### C BC #### [facility] [address] [place] [address] Dr. Luis Daniel Sin IG % 0.4 % Normal 0.0-0.5 [facility] Comment on above: Performed By: #### C BC #### [facility] [address] [place] [address] Dr. Luis Daniel Sin LYMPH # 2.2 103/ul Normal 1.2-3.8 [facility] Comment on above: Performed By: #### C BC #### [facility] [address] [place] [address] Dr. Luis Daniel Sin Lymphocytes/100 WBC (Bld) 26.0 % Normal 20.5-60.0 [facility] Comment on above: Performed By: #### C BC #### [facility] [address] [place] [address] Dr. Luis Daniel Sin MANUAL DIFF REQ NO Normal [facility] Comment on above: Performed By: #### C BC #### [facility] [address] [place] [address] Dr. Luis Daniel Sin MCH (RBC) [Entitic mass] 28.6 pg Normal 26.7-34.0 [facility] Comment on above: Performed By: #### C BC #### [facility] [address] [place] [address] Dr. Luis Daniel Sin MCHC (RBC) [Mass/Vol] 32.8 g/dL Normal 29.9-35.2 [facility] Comment on above: Performed By: #### C BC #### [facility] [address] [place] [address] Dr. Luis Daniel Sin MCV (RBC) [Entitic vol] 87.1 fL Normal 81.0-99.0 [facility] Comment on above: Performed By: #### C BC #### [facility] [address] [place] [address] Dr. Luis Daniel Sin MONO # 0.6 103/ul Normal 0.3-0.8 [facility] Comment on above: Performed By: #### C BC #### [facility] [address] [place] [address] Dr. Luis Daniel Sin Monocytes/100 WBC (Bld) 6.8 % Normal 1.7-12.0 [facility] Comment on above: Performed By: #### C BC #### [facility] [address] [place] [address] Dr. Luis Daniel Sin NEUT # 5.3 103/ul Normal 1.4-6.5 [facility] Comment on above: Performed By: #### C BC #### [facility] [address] [place] [address] Dr. Luis Daniel Sin Neutrophils/100 WBC (Bld) 63.6 % Normal 43.0-75.0 [facility] Comment on above: Performed By: #### C BC #### [facility] [address] [place] [address] Dr. Luis Daniel Sin Platelet mean volume (Bld) [Entitic vol] 9.5 fL Normal 9.5-13.5 [facility] Comment on above: Performed By: #### C BC #### [facility] [address] [place] [address] Dr. Luis Daniel Sin PLT 364 103/ul Normal 150-450 [facility] Comment on above: Performed By: #### C BC #### [facility] [address] [place] [address] Dr. Luis Daniel iSn RBC 4.72 106/ul Normal 4.20-5.40 [facility] Comment on above: Performed By: #### C BC #### [facility] [address] [place] [address] Dr. Luis Daniel Sin WBC 8.3 103/ul Normal 4.0-11.0 [facility] Comment on above: Performed By: #### C BC #### [facility] [address] [place] [address] [address] CHEST WO CONon 09-09-2022 CT CHEST WO CON EXAMINATION: CT CHEST [...] TODD JACOBS Date: 2022-02-25 18:07 Normal [facility] PROF 14(COMP METB)on 022 Albumin [Mass/Vol] 3.6 g/dL Normal 3.4-5.0 [facility] Comment on above: Performed By: #### C MP #### [facility] [address] [place] [address] Dr. Luis Daniel Sin Albumin/Globulin [Mass ratio] 0.9 {ratio} Normal [facility] Comment on above: Performed By: #### C MP #### [facility] [address] [address] [address] Luis Daniel Sin ALP [Catalytic activity/Vol] 113 U/L Normal 46-116 [facility] Comment on above: Performed By: #### C MP #### [facility] [address] [place], [place] [address] Dr. Luis Daniel Sin ALT [Catalytic activity/Vol] 17 U/L Normal 14-59 [facility] Comment on above: Performed By: #### C MP #### [facility] [address] [address] [address] Luis Daniel Sin Anion gap [Moles/Vol] 9.7 mmol/L Normal [facility] Comment on above: Performed By: #### C MP #### [facility] [address] [address] [address] Luis Daniel Sin AST [Catalytic activity/Vol] 11 U/L Critically low 15-37 [facility] Comment on above: Performed By: #### C MP #### [facility] [address] [address] [address] Luis Daniel Sin Bilirubin [Mass/Vol] 0.3 mg/dL Normal 0.2-1.0 [facility] Comment on above: Performed By: #### C MP #### [facility] [address] [address] [address] Luis Daniel Sin Calcium [Mass/Vol] 8.9 mg/dL Normal 8.5-10.1 [facility] Comment on above: Performed By: #### C MP #### [facility] [address] [address] [address] Luis Daniel Sin Chloride [Moles/Vol] 104 mmol/L Normal 98-107 [facility] Comment on above: Performed By: #### C MP #### [facility] [address] [address] [address] Luis Daniel Sin CO2 [Moles/Vol] 26.9 mmol/L Normal 21.0-32.0 [facility] Comment on above: Performed By: #### C MP #### [facility] [address] [address] [address] Luis Daniel Sin Creatinine [Mass/Vol] 0.96 mg/dL Normal 0.55-1.02 [facility] Comment on above: Performed By: #### C MP #### [facility] [address] [address] [address] Luis Daniel Sin EGFR-AF LIBERIAN >60 Normal >=60 [facility] Comment on above: Performed By: #### C MP #### [facility] [address] [address] [address] Luis Daniel Sin EGFR-NON AF LIBERIAN >60 Normal >=60 [facility] Comment on above: Performed By: #### C MP #### [facility] [address] [address] [address] Luis Daniel Sin Globulin (S) [Mass/Vol] 4.0 g/dL Normal T [facility] Comment on above: Performed By: #### C MP #### [facility] [address] [address] [address] Luis Daniel Sin Glucose [Mass/Vol] 99 mg/dL Normal 74-106 [facility] Comment on above: Performed By: #### C MP #### [facility] [address] [place] [address] Dr. Luis Daniel Sin Potassium [Moles/Vol] 3.6 mmol/L Normal 3.5-5.1 [facility] Comment on above: Performed By: #### C MP #### [facility] [address] [address] [address] Luis Daniel Sin Protein [Mass/Vol] 7.6 g/dL Normal 6.4-8.2 [facility] Comment on above: Performed By: #### C MP #### [facility] [address] [address] [address] Luis Daniel Sin Sodium [Moles/Vol] 137 mmol/L Normal 136-[address] [facility] Comment on above: Performed By: #### C MP #### [facility] [address] [address] [address] Luis Daniel Sin Urea nitrogen [Mass/Vol] 12.0 mg/dL Normal 7.0-18.0 [facility] Comment on above: Performed By: #### C MP #### [facility] [address] [address] [address] Luis Daniel Sin Urea nitrogen/Creatinine [Mass ratio] 12.5 mg/mg Normal [facility] Comment on above: Performed By: #### C MP #### [facility] [address] [address] [address] Luis Daniel Sin [facility] 46 mm/hr Critically high <=20 [facility] Comment on above: Performed By: #### A ST, ALT, LIPID #### [facility] [address] [address] [address] Luis Daniel Sin LIPID PROFILEon 02-01-2022 CHOL-HDL RATIO NORM SEE BELOW Normal [facility] Comment on above: Result Comment: 3.3 - 4.4 LOW RISK 4.4 - 7.1 AVERAGE RISK 7.1 - 11.0 MODERATE RISK >11.0 HIGH RISK Performed By: #### A ST, ALT, LIPID #### [facility] [address] [address] [address] Luis Daniel Sin Cholesterol [Mass/Vol] 250 mg/dL Critically high <=200 [facility] Comment on above: Performed By: #### A ST, ALT, LIPID #### [facility] [address] [address] [address] Luis Daniel Sin Cholesterol in HDL [Mass/Vol] 44 mg/dL Normal 40-60 [facility] Comment on above: Performed By: #### A ST, ALT, LIPID #### [facility] [address] [address] [address] Luis Daniel Sin Cholesterol in LDL [Mass/Vol] 162.0 mg/dL Normal [facility] Comment on above: Performed By: #### A ST, ALT, LIPID #### [facility] [address] [address] [address] Luis Daniel Sin Cholesterol.total/Inna sterol in HDL [Mass ratio] 5.7 {ratio} Normal [facility] Comment on above: Performed By: #### A ST, ALT, LIPID #### [facility] [address] [address] [address] Luis Daniel Sin HDL NORMAL > or = 60 mg/dl - LOW CARDIOVASCULAR RISK <40 mg/dl - HIGH CARDIOVASCULAR RISK Normal [facility] Comment on above: Performed By: #### A ST, ALT, LIPID #### [facility] [address] [address] [address] Luis Daniel Sin LDL CALC NORMAL SEE BELOW Normal [facility] Comment on above: Result Comment: <100 mg/dl OPTIMAL 100 - 129 mg/dl NEAR OR ABOVE OPTIMAL 130 - 159 mg/dl BORDERLINE HIGH 160 - 189 mg/dl HIGH >190 mg/dl VERY HIGH Performed By: #### A ST, ALT, LIPID #### [facility] [id number] Luis Daniel Sin Triglyceride [Mass/Vol] 220 mg/dL Critically high <=150 [facility] Comment on above: Performed By: #### A ST, ALT, LIPID #### [facility] [address] [address] [address] Luis Daniel Sin VLDL CALC 44.0 mg/dL Normal [facility] Comment on above: Performed By: #### A ST, ALT, LIPID #### [facility] [address] [address] [address] Luis Daniel Lujan 02-01-2022 AST [Catalytic activity/Vol] 17 U/L Normal 15-37 [facility] Comment on above: Performed By: #### A ST, ALT, LIPID #### [facility] [id number] Luis Daniel Conteh 02-01-2022 ALT [Catalytic activity/Vol] 21 U/L Normal 14-59 [facility] Comment on above: Performed By: #### A ST, ALT, LIPID #### [facility] [address] [address] [address] Luis Daniel Sin Patient Correspondenceon Patient Correspondence [id number]:127 Normal [facility] Provider Letteron 12-31-2021 Provider Letter December 31, 2021 [address] [place] [address] MONET ORTEGA 1970 Dear Monet , This letter is to inform you the providers of [facility] will no longer be responsible for your routine medical care due to non compliance. Emergency care only will be provided for the thirty (30) days following this letter. During this time period we suggest that you find another physician for your medical needs. A listing of area physicians can be found on [facility]'s website at [email or web address] or you may contact your health plan. We will be glad to forward your records to your new physician as long as we receive a signed release of records form. Sincerely, Dr. Vickie Montiel MD [facility] [address], [place] [address] Normal [facility] LIPID PROFILEon 12-13-2021 CHOL-HDL RATIO NORM SEE BELOW Normal [facility] Comment on above: Result Comment: 3.3 - 4.4 LOW RISK 4.4 - 7.1 AVERAGE RISK 7.1 - 11.0 MODERATE RISK >11.0 HIGH RISK Performed By: #### A ST, ALT, LIPID #### [facility] [address] [address] [address] Luis Daniel Sin Cholesterol [Mass/Vol] 233 mg/dL Critically high <=200 [facility] Comment on above: Performed By: #### A ST, ALT, LIPID #### [facility] [address] [address] [address] Luis Daniel Sin Cholesterol in HDL [Mass/Vol] 52 mg/dL Normal 40-60 [facility] Comment on above: Performed By: #### A ST, ALT, LIPID #### [facility] [address] [address] [address] Luis Daniel Sni Cholesterol in LDL [Mass/Vol] 142.6 mg/dL Normal [facility] Comment on above: Performed By: #### A ST, ALT, LIPID #### [facility] [address] [address] [address] Luis Daniel Sin Cholesterol.total/Inna sterol in HDL [Mass ratio] 4.5 {ratio} Normal [facility] Comment on above: Performed By: #### A ST, ALT, LIPID #### [facility] [address] [address] [address] Luis Daniel Sin HDL NORMAL > or = 60 mg/dl - LOW CARDIOVASCULAR RISK <40 mg/dl - HIGH CARDIOVASCULAR RISK Normal [facility] Comment on above: Performed By: #### A ST, ALT, LIPID #### [facility] [address] [address] [address] Luis Daniel Sin LDL CALC NORMAL SEE BELOW Normal [facility] Comment on above: Result Comment: <100 mg/dl OPTIMAL 100 - 129 mg/dl NEAR OR ABOVE OPTIMAL 130 - 159 mg/dl BORDERLINE HIGH 160 - 189 mg/dl HIGH >190 mg/dl VERY HIGH Performed By: #### A ST, ALT, LIPID #### [facility] [address] [address] [address] Luis Daniel Sin Triglyceride [Mass/Vol] 192 mg/dL Critically high <=150 [facility] Comment on above: Performed By: #### A ST, ALT, LIPID #### [facility] [address] [address] [address] Luis Daniel Sin VLDL CALC 38.4 mg/dL Normal [facility] Comment on above: Performed By: #### A ST, ALT, LIPID #### [facility] [address] [place] [address] Dr. Luis [facility] AST [Catalytic activity/Vol] 12 U/L Critically low 15-37 [facility] Comment on above: Performed By: #### A ST, ALT, LIPID #### [facility] [address] [place] [address] Dr. Luis Daniel Sin [facility] 12-13-2021 ALT [Catalytic activity/Vol] 23 U/L Normal 14-59 [facility] Comment on above: Performed By: #### A ST, ALT, LIPID #### [facility] [address] [place] [address] Dr. Luis Daniel Sin Patient Correspondenceon Patient Correspondence [id number]:127 Normal [facility] Patient Letter FTMCon 05-25- 2022 Patient Letter [facility] November 10, 2021 MONET ORTEGA [address] [place] [address] MONET ORTEGA 1970 Dear Monet, I am [...] Dr. Vickie Montiel MD [facility] [address] [place] [address] [facility] Provider Letteron 10-19-2021 Provider Letter October 19, 2021 MONET ORTEGA [address] [place] [address] MONET ORTEGA 1970 Dear Jodi , During review of your medical record we noticed you missed your 09/27/21 Cystoscopy appointment. We have attempted to reach you on 09/28/21, 10/05/21, and 10/19/21 to reschedule your procedure with no success. Please call our office today to reschedule this appointment. Sincerely, Dr. Vickie Montiel MD [facility] [address] [place] [address] [facility] RAD - CT Reporton 09-21-20[address] RAD - CT Report [id number]:127 [facility] Reminderson 09-21-2021 Reminders --- From: Suzan Collins MA To: EU - Prior Authorization; Sent: 09/15/2021 12:38:12 EDT Show up: 09/16/2021 07:00:00 EDT Subject: sending urine for UA Due Date/Time: 09/16/2021 12:00:00 EDT Reminder/Recall Urine sent to [facility] for UA Per [...] for 09/27/2021 --- From: Suzan Collins MA (EU - Clinical) To: EU - Clinical; Sent: 09/21/2021 15:43:23 EDT Show up: 09/21/2021 15:43:00 EDT Subject: RE: sending urine for UA UA was sent to [facility] for micro. I don't see the results in the pt's chart. But when they do get in chart, GURU needs to review them. Scratch that. They were sent to [facility]. Will forward to GURU. Sundeep [facility] Coding Summary.on 09-17-2021 Coding Summary. [id number] 9UGb6fKz+PGhlYWQ+P Q1NELXeR65qwESfoZ6 QR2tYYC6KYAPUTQJBP V5RQZ6kmTZ0EUrnV4O ybiAv TrgjnCSpTG25GSz0WJ X6aTnaUZctuB8vkKSc X7x5IkHbLL77gN76GG jhUZWwOcM4JvFssabb bWFy E3buTpHhxRUnGjr+PH RhYmxlIHdpZHRoPScx WWWpMsFqbLxfLZ8rCs 9yZGVyLWNvbGxhcHNl OiBj t2hsJFNzPJwnKH5hmE drP8EcoPO9NNFdt1t7 Cj81dMD+KKIgZXK4eH joUWdgd125EaMfw6nl IDM3 xSIfXNsyYRF9I18gy9 F3JLOmHLLnVPW5zRZ0 yU6pxJjwwqzvM2QiwB ChMeA3IGP9vCJihF5g bGln jhedaS7nXky+Q09ESU 5UDZBHVX7ERoh7V5Qn PjwvdHI+XS03GLQrWN 83jJAenBIom8yrqWl5 JzEw CTLmUPS1fYsgKWjix2 PeWEViX97cyMRot0R7 IGNvbGxhcHNlOyBlbX J0xI3sUTdvqrhdi2us dzsn Trygk8imgs08yG80S2 1sGSieHZApRZE3SATa BSEsxBaozh5mnW6mFf 8+WDmjr6tht6bwuBi7 IjIw HUKoevXxgWwsZZW0u6 QvRa08G5BoyDiar2Kq Jsx4uv53pEZut1B5cI A1XGqoZTJgnH0gOOvr ZnQ6 EQJsCaFnbH30tSVnTS axTo3gpAuhiObwIY3l ATUjkxjoBQHnwN8hEE RbjLSueSdfEK2pAHLv bjtm g390RePhETK5WVYkiT EjQ1XymE4pMcAvSSFp GGDwW8PcfFEvVOfrF4 26CJjyXgM9ONMvksTl Y2Fs MMPmmPzzViS9u9C9Pq 4No9MsgqumECQ9SEds NOOwWvWjRbLdAbU5J1 JeGov6URPacIcsZN5x J3Bh UXNisdjoyjzqgJI5SE TvCRXiuE60jICsDMaz Nc1es8M2i894ISNxSL ErnC14Sv7evHjdLVUo dCBU sQ1uxjskf7pkrzmlOx OwPBUbELv3HRy5VCXc xCsrDmBzAQP4RfT1CZ M3zOWviA8cqWmdxwuk dG9w Oyc+M29zbJ8cEDR9PV A3kpkaDVIhgyAbDK49 IH58M5FtZefpiZDfuU U+PVEtgkUrgHosIV1q YmFj o1xvv4LlQTwrY3IgZJ JdPXpyXyp2CEViIFO4 lQE4aZ5ePALlLKrdu8 D2qFC6U8PjkzKdxa9v b2xs CJZaZZecV28fyVNzd2 V3UOJbmRR5FZVkyPva RkAifI18Qqy+PGNvbG szo5OcNsqwf6xge4kh dGg9 IjMwJSIgdmFsaWduPS M3f2RwGc92I20bAXhk ZHRoPSIxNSUiIHZhbG kcbt3veF6gRi6+PGNv bCB3 qDF2cD3fVUFmIpU6AI tmF981RdGccNKuQwbd y5ifn9cxrLo4PtEkZW NmakXauUlpEWT3z4Pg Lz48 I88pETioIPCoQCBeWS JkNWOnoFnmxi0pwF8x Ii8+VF7mg8hzio69fK 48dHI+AXVsZDK3aQmy PSdw TCZtxJ5pTHrkJfG4DL RzUnKryF69pXRpXIwt Jo7cbFhqmRipVW9dZH Ldcdhug920WuOmt3zk IDEw dFOjTWpdPRT0K57dy5 W1SWZnYVAlJNA6aSO1 sY5psDgvttfzvHCpdJ sgdmVydGljYWwtYWxp Z246 IHRvcDsnPlBhdGllbn BaShAaKFh0H4GvSno1 JWEtvCaoER2opEIlON ymTm9hcVjtxOktVB1v NTBp pvkqh872PjLth5ynHY FudEGzZTpnMDE4L68n r3F6JQVwIQTlFOY7wS D1jR2viXgdkxiddGFr dDsg dmVydGljYWwtYWxpZ2 46IHRvcDsnPkJpcnRo QMIoeOT0ZQ67KU56rS Xgo2L0aZK9I3IwODBv bmct uhmnkEH5SMXmRGRpuX 45Fu7taRbjVc5bSSSi LDS2CVIwmFRwB8ObmG 9fIqLlUJDqQVIcK3Gg eHQt PJucX710KPolKdG4SW GsakPxS7SuKXCkrUjz ZkQ6e9H3Ms3GE4W6WI 09XI58vROqx0N5nND3 J3Bh DEUouqyygswbuTQ1OF VdRLCdlW14Xg1adBpv Wc1gRTGmOPR9DKNdiR YvN9JblM0dRlMqYVXw MDAw M7ZyfNOuEAaiD274IV fdElN8EMWgahUiJ6Os VYDhjRcqCtO8m0I2Qz 3CKGv5IC38AN93xPJh c3R5 jWE3I4DtSHFcxlxmrg bxzXI0OVCeYTWksR86 Xa5okDrcYm5oXPMuOO G0AVCcvFDzO8FabN0p OiAj WKQfGOSkJ8AwwPXqUV sfV156ZNkuByK1DWVv ewPuY7BtBDZgfLxmOp G8d1J3Iu3XHAMsGN24 IFR5 xXK6AY07CP80B7ZpMn wvdGFibGU+PHRhYmxl IHdpZHRoPScxMDAlJy DpiDloUK8iTu4nHFJd LWNv uCpxqYClOnRuk2rtBC CwARyuVI2xyRavD5Bi rRO4YVVki9l9Lk05Q5 3aV8KjiNY+PGNvbCB3 aWR0 oD0oOxEjIrE1ROjfH5 52AcNayRQhNjgvi9ag f7etuTj4DnF1VBIeqn AbrLypMKA7a7OiXa93 Y29s IHdpZHRoPSIxNSUiIH RcoYfqli9ntA4rFa7+ XYYqbZD9kOM0hR6pGs UfQdX2WOklX253WoOl cCIv Fhclw0izy1dupUv0Jz IwJSIgdmFsaWduPSJ0 r8PvQa30X7ZgiBhdu0 OkKji7ry82tZUvq0E0 bGU9 X4KnJPXfevxaoLQqjP ntBG8jBGDicpqnCRTa gQ5yMZNiR4s5SyWpHb A7XIdoR2WtpkZ1ZKKx cHQg OSnzFYY9U51fs7N5GT UwUUTjADQ1cNW6oC3f bGlnbjogbGVmdDsgdm JfhIclYForCLxlV388 IHRv uQtsIWWiwW2aFXTmuW MwxSlwYW2sVLMnbfwd QocMZaNGKNOID3BEFS mHSY44Y5DzXty3JJYw dHls DC4ucUKgIUygZc0bjC eukBexGH7mHTYvbbqk ZIIxyS9gAMYcyDIdsC aePA1uEPMwuhmdo182 OiAx BXS8XJFxjBJyF3GtdD 9vMiTuJPFoTZUnQ4Fl qHJqMZdfO825FFfhZi S2KBUgryEgW2WkTJQp aWdu KnO5z0M5Lg3qCa6cDt 7rMYysAA53AL91qFPd j9E6hTG0K8DjIFOqok bvbbbvaMW0BSAxMOUd aW47 ePKlQBrgZu8bo4C9v8 92EJXrSCNiiJ28Ht5z yUqsOAYdsXZFxF8pjg onj9zdsqfsOzMzVTGn MDt0 FBg9FAIaaLoxVrKvCJ M3IdV1HHZ4mHEatV6q lFjjzqyooK9zEep+ND paKVGkmyH0N0TlKlc1 ZCBz iDxjBN1elBTwPNehHp 8jrLjjcYpzYJ7wGNQk twyzJEJqzA9jHHUjfN NxyEreBY0wMBKdnbok b250 KbMrYFD3CDFmfXCbB4 PouY6sAxTyHXPmMBCz V8SleMEySLlfW699MB hrQcC7MTIoliNuL9Sb LWFs bKtsBrO0i6J1Ed7ZFW 9fmXR8O8SiGzs4PTXv oCggHU1deUHpCHscNy 6qoLnlkUipDV6aQJJi bjtw WLWiqB3hXZSolDAndM mbDW4aFBMifqokp085 VeFcBKF8MWUedQUeZ4 FxcZ4rWfIuQDVvZZRo O3Rl vKSfBMorO498BUkwYx W8WUCqaiLaP0UrIYNa mRkuQhJ5d9H1Rm9CBI McGLUyjRAuNoI2H0Ma Pjwv dHI+NA33CAPfLT79fS RqsBEsi4ticUz9LaZs GNKnDNH9yVnxLPwhn2 EdFBLdO43adSBof6X6 IGNv dZjabOSrVsDhbZG5oA 5bZMkygxbzw6lqxewf Weuec4tkvy36fH72R7 9sIHdpZHRoPSIzMCUi IHZh kMhsyz9xlK9aCw3+PG QvsYT5iBF1wY6fXfBk JoS8GRlqW983LkUfbI RlZqsiy8flq3dsjDf0 IjIw LOZgdoGjfBmgRSF8j1 PrUt65D57tIQnxAZWb PSIyMCUiIHZhbGlnbj 7bpB5oDg5+KV2jn2vc cm91 gH91wYD+NCEtABV6rS zwZKrcYHUaxF3fGTwz OmB0RSNvRePgeR60yF JmQBqoXr2dhCsdtGst MC4w UHXskfrrh956WuNsh8 xkIDEwcHQgVGltZXM7 H13ep0I4JYNdDYXjCN C9gHS9nD4ocZmqcdqu bGVm dDsgdmVydGljYWwtYW dhI388PBQcmQyaTfEk uYPjB9jkzsOPSN6xKq wvdGQ+HBOsBMK2fUwp PSdw XLUvmU8oSJPlN1e2Es DlNtT9ESpuH1GiffY8 IGJvbGQgMTBwdCBUaW 3sngcai7miczoaIeYw MDAw HMt1HJp2FGEogUvsTs KnAFL0NmP0ERR4hNTo zQ9nlBmwtlvzqN9pSl c+RklOOjwvdGQ+PHRk IHN0 xNozEHzaPCTrwS6vEO NlM9g6TfBfCkW3YOhj V1AxsdH7VHLeaVYwUF RciYJTaE9vaddur9bi cjog SzFjEPNrMCy7CJs1PB BtvVckXqGySWL7ToN3 KZV9eBOvfQ8gdDdnjv xfyF6kErt+TVJOOjwv dGQ+ EHSbYBM3dFlvHVlrBC AvlX8pFYPuG0c0LcHi SvQ1KCvqK1PuhvW9VN RwwNRxQXRbjVVCzN3v cztj m8czokpiViRzWPAgYU m5BFp7FSIpxJjeToWk HIX5LvR9VKV3hEYapV 6knEjqrqoeaH9hBfl+ UGF5 ADM3IL53YY25T0ItJn wvdGFibGU+PHRhYmxl IHdpZHRoPScxMDAlJy DttVzeUF1aOf4bROOb LWNv bGxh (more content not included)... Normal [facility] Physician Referralon 022 Physician Referral [id number]#[id number]:127 Normal [facility] Pre-Certification Formon Pre-Certification Form [id number]#[id number]:127 Normal [facility] Patient Educationon 09-16-19 22 Patient Education [...] these instructions at home: Medicines ? Take sdtv-ftn-mrfsepl and prescription medicines only as told by [...] the blood stops without treatment. ? Take dqxc-opb-ifatalg and prescription medicines only as told by your health care provider. ? Drink enough fluid to keep your urine clear or pale yellow. This information is not intended to replace advice given to you by your health care provider. Make sure you discuss any questions you have with your health care provider. Document Released: 06/05/2006 Document Revised: 10/30/2019 Document Reviewed: 07/08/2017 [employer] Patient Education ? 2019 [employer] Normal [facility] RAD - CT Reporton 09-15-2021 RAD - CT Report [id number]#[id number]:127 Normal [facility] URINALYSISOrdered By: Shahla buckner on 09-15-2021 Bilirubin Ql (U) 2+ *ABN* (09/15/21 12:36 PM) Invalid Interpretation Code Negative FT UA Auto SS Calcium oxalate crystals LM Ql (Urine sed) Present (09/15/21 12:36 PM) Normal FT UA Auto SS Clarity (U) Clear (09/15/21 [...] PM) Normal Negative [facility] UA Auto SS Barron.plasma/Barron. RBC (Bld) [Mass ratio] 0-3 /HPF Normal 0-3/HPF [facility] UA A uto SS Mucus Ql (Urine [...] Desc Clean Catch (09/15/21 12:36 PM) Normal [facility] UA Auto SS Urobilinogen Qn (U) 0.9100783 {Edelmira'U}/dL Normal 0.0 - 1.0 EU/dL FT UA Auto SS WBC Auto Ql (U) Negative (09/15/21 12:36 PM) Normal Negative [facility] UA Auto SS WBC LM.HPF (Urine sed) [#/Area] 0-5 /HPF Normal 0-5/HPF [facility] UA Auto SS Urinalysison 09-15-2021 Bilirubin Ql (U) 2+ Abnormal Negative [facility] Comment on above: Performed By: #### 1 [id number] #### [facility] [address] [place] [address] Calcium oxalate crystals LM Ql (Urine sed) Present Normal [facility] Comment on above: Performed By: #### 1 [id number] #### [facility] [address] [place] [address] Clarity (U) CLEAR Normal Clear [facility] Comment on above: Performed By: #### 1 [id number] #### [facility] [address] [place] [address] Color (U) YELLOW Normal Yellow [facility] Comment on above: Performed By: #### 1 [id number] #### [facility] [address] [place] [address] Epithelial cells.squamous LM.HPF (Urine sed) [#/Area] 0-2 Normal 0-2 [facility] Comment on above: Performed By: #### 1 [id number] #### [facility] [address] [place] [address] Glucose Test strip (U) [Mass/Vol] Negative Normal Negative [facility] Comment on above: Performed By: #### 1 [id number] #### [facility] [address] [place] [address] Hemoglobin Ql (U) 3+ Abnormal Negative [facility] Comment on above: Performed By: #### 1 [id number] #### [facility] [address] [place] [address] Ketones (U) [Mass/Vol] Negative Normal Negative [facility] Comment on above: Performed By: #### 1 [id number] #### [facility] [address] [place] [address] Barron.plasma/Barron. RBC (Bld) [Mass ratio] 0-3 Normal 0-3 [facility] Comment on above: Performed By: #### 1 [id number] #### [facility] [address] [place] [address] Mucus Ql (Urine sed) TRACE Normal [facility] Comment on above: Performed By: #### 1 [id number] #### [facility] [address] [place] [address] Nitrite Ql (U) Negative Normal Negative [facility] Comment on above: Performed By: #### 1 [id number] #### [facility] [address] [place] [address] pH (U) 5.5 [pH] Invalid Interpretation Code 5.0-9.0 [facility] Comment on above: Performed By: #### 1 [id number] #### [facility] [address] [place] [address] Protein (U) [Mass/Vol] Negative Normal Negative [facility] Comment on above: Performed By: #### 1 [id number] #### [facility] [address] [place] [address] Specific gravity (U) [Rel density] 1.025 Invalid Interpretation Code 1.005-1.030 [facility] Comment on above: Performed By: #### 1 [id number] #### [facility] [address] [place] [address] Type of Urine collection method Clean Catch Normal [facility] Comment on above: Performed By: #### 1 [id number] #### [facility] [address] [place] [address] Urobilinogen Qn (U) 0.2 {Edelmira'U}/dL Normal 0.0-1.0 [facility] Comment on above: Performed By: #### 1 [id number] #### [facility] [address] [place] [address] WBC Auto Ql (U) Negative Normal Negative [facility] Comment on above: Performed By: #### 1 [id number] #### [facility] [address] [place] [address] WBC LM.HPF (Urine sed) [#/Area] 0-5 Normal 0-5 [facility] Comment on above: Performed By: #### 1 [id number] #### [facility] [address] [place] [address] CT CHEST W CONon 09-07-2021 CT CHEST [...] nonspecific, of doubtful clinical significance Normal [facility] COVID Quick Testingon 2020 Result Negative [facility] Other Vital Signs Date Time Vital Sign Value Performing Clinician Facility 09-15-2021 08:30-0400 Blood Pressure Location Vickie Dinesh [facility] 09-15-2021 08:30-0400 Diastolic blood pressure 80 mm[Hg] Vickie Dinesh [facility] 09-15-2021 08:30-0400 Systolic blood pressure 124 mm[Hg] Vickie Montiel [facility] Kourtney 04-14-2021 20:30-0400 Body height 170.18 cm Cecy Amayamond Other [facility] Other 04-14-2021 20:30-0400 Body mass index (BMI) [Ratio] 32.1 kg/m2 Cecy Amayamond Other [facility] Other 04-14-2021 20:30-0400 Body temperature 97.5 [degF] Cecy Amayamond Other [facility] Other 04-14-2021 20:30-0400 Body weight 92.99 kg Cecy Amayamond Other [facility] Other 04-14-2021 20:30-0400 Respiratory rate 18 /min Cecy Chiang Other [facility] Other 04-14-2021 20:30-0400 SaO2% (BldA) [Mass fraction] 96 % Cecy Amayamond Other [facility] Other Encounters Encounter Date Encounter Type Care Provider Facility Start: 03-25-2024 End: 03-25-2024 ambulatory SHANDRA AICHHOLZ Not Available Start: 03-07-2024 End: 03-07-2024 ambulatory SHANDRA AICHHOLZ Not Available Start: 03-02-2024 End: 03-03-2024 ambulatory MAURO VALENCIA [facility] Start: 12-11-2023 End: 12-11-2023 ambulatory SHANDRA AICHHOLZ Not Available Start: 09-07-2023 End: 03-21-2024 ambulatory SHANDRA AICHHOLZ Not Available Start: 12-06-2022 End: 12-06-2022 ambulatory Kendra Woodall Facility:[facility] Start: 12-06-2022 End: 12-06-2022 ambulatory Shandra Delia Becerrilholz Work Phone: [facility] Work Phone: Start: 12-06-2022 End: 12-06-2022 Patient encounter procedure Shandra Joneholz Work Phone: [facility] [address] Work Phone: Start: 10-03-2022 End: 10-03-2022 ambulatory Cecil Taylor Facility:[facility] Start: 10-03-2022 End: 10-03-2022 ambulatory Shandra Delia Becerrilholz Work Phone: [facility] Work Phone: Start: 10-03-2022 End: 10-03-2022 Patient encounter procedure Shandrakathya Kooz Work Phone: [facility] [address] Work Phone: Start: 08-18-2022 End: 08-19-2022 ambulatory PATIENT SAFETY COORDINATOR SHANDRA AICHHOLZ Facility:[facility] Start: 06-07-2022 End: 06-08-[address] DOCTOR WELCH Facility:[facility] Start: 02-25-2022 End: 02-26-2022 ambulatory PATIENT SAFETY COORDINATOR SHANDRA AICHHOLZ Facility:[facility] Start: 02-01-2022 End: 02-02-2022 ambulatory PATIENT SAFETY COORDINATOR SHANDRA AICHHOLZ Facility:[facility] Start: 12-13-2021 End: 12-14-2021 ambulatory PATIENT SAFETY COORDINATOR SHANDRA AICHHOLZ Facility:[facility] Start: 09-15-2021 End: 09-15-2021 Lab Drop off Vickie Montiel [facility] Start: 09-15-2021 End: 09-15-2021 Patient encounter procedure Vickie Montiel [facility] [place] Start: 09-06-2021 End: 09-07-2021 ambulatory TONI ROMERO Facility:[facility] Start: 04-14-2021 End: 04-14-2021 ambulatory Cecy Chiang Other [facility] Other Start: 04-14-2021 Office outpatient visit 15 minutes Cecy Mariia [facility] Procedures Date Procedure Procedure Detail Performing Clinician Start: 06-19-2016 Hysterectomy Vickie Montiel Immunizations Immunization Date Immunization Notes Care Provider Yasmin kenyon NEGATED: Highlighted row has not occurred!09-15-2021 SARS-CoV-2 (COVID-19) Ad26 vaccine, recombinant Vickie Montiel [facility] [place] Payers Date Payer Category Payer Self-pay [id number] 1970 Unknown [id number] 2.16.84 0.1.442451.3.579.2.593 1970 Unknown [id number] 2.16.84 0.1.410632.3.579.2.593 1972 Unknown [id number] 2.16.84 0.1.920016.3.579.2.593 1972 Unknown [id number] 2.16.84 0.1.436850.3.579.2.593 1972 Unknown [id number] 2.16.84 0.1.686168.3.579.2.593 1972 Unknown [id number] 2.16.84 0.1.266454.3.579.2.593 1972 Unknown [id number] 2.16.84 0.1.347505.3.579.2.593 1972 Unknown [id number] 2.16.84 0.1.976651.3.579.2.593 1972 Unknown [id number] 2.16.84 0.1.910222.3.579.2.1259 1972 Unknown [id number] 2.16.84 0.1.114538.3.579.2.1259 1972 Unknown [id number] 2.16.84 0.1.697500.3.579.2.1259 1972 Unknown [id number] 2.16.84 0.1.224774.3.579.2.1259 1957 [place] [id number] 2.16.840.1.002290.19 Unknown [id number] 2.16.8 40.1.429471.3.579.2.531 Unknown [id number] 2.16.8 40.1.773901.3.579.2.531 Social History Date Type Detail Facility Start: 09-15-2021 Tobacco smoking status Heavy t obacco smoker (finding) [facility] Other Sex Assigned At Female [facility] Other Start: 1970 Sex Assigned At Female F [facility] Clinical Note 02-25-2022 Note Date & Type [...] authenticated by: TODD JACOBS Date: 2022-02-25 17:45 [facility] Clinical Note 09-15-2021 Note Date & [...] Illness Tests reviewed: reviewed UA, CT AP ([facility]), external records I have reviewed the [...] procedure, # 2 cap(s), Refills(s) 0, Pharmacy: [facility]/pharmacy #[id number], 170, cm, 09/15/21 8:33:00 EDT, Height/Length Dosing, 93.9, kg, 09/15/21 8:33:00 EDT, Weight Dosing estradiol topical, See Instructions, 42.5 gm, Refill(s) 3, Apply pea sized amount 3x a week for 4 weeks and 2x a week after, [facility]/pharmacy #[id number], 170, cm, 09/15/21 8:33:00 EDT, Height/Length Dosing, 93.9, (more content not included)... [facility] Comment on above: Result Comment: Elec [...] Follow these instructions at home: Medicines Take awdw-sth-iwpdmae and prescription medicines only as told by [...] or the blood stops without treatment. Take yroe-orr-hhijphf and prescription medicines only as told by your health care provider. Drink enough fluid to keep your urine clear or pale yellow. This information is not intended to replace advice given to you by your health care provider. Make sure you discuss any questions you have with your health care provider. Document Released: 06/05/2006 Document Revised: 10/30/2019 Document Reviewed: 07/08/2017 PrintToPeer Patient Education 2020 [employer]. Follow Up Care 08/23/2021 15:52:47 With:Dinesh SABA, Vickie Archibald, MARCELLA, URO [address] [place] [address] [phone] Business (1) When: Unknown [facility] Evaluation note 04-14-2021 Note Date & [...] Patient care instructions given in writting by [facility] Care At Home document. [employer] Other Evaluation + Plan note Note Date & Type Note Facility Evaluation + Plan note Future Appointments Appointment Date:09/16/2021 08:30:00 AM Scheduled Provider: Location:[facility] Appointment Type:Urology CALL PAT FT Appointment Date:09/27/2021 09:00:00 AM Scheduled Provider: Location:[facility] Appointment Type:Urology FT [facility] Evaluation note Note Date & Type Note Facility Evaluation note No assessment [facility] Phone: History general Narrative - Reported Note Date & Type Note Facility History general Narrative - Reported Type Medical History rheumatoid arthritis Medical History Osteoarthritis Surgical History HYSTERECTOMY Surgical History 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 as chi ld Hospitalization History see above [employer] Other Hospital course Narrative Note Date & Type Note Facility Hospital course Narrative No data available for this section [facility] Hospital Discharge instructions Note Date & Type Note Facility Hospital Discharge instructions No data available for this section [facility] Summary Purpose Family History No Family [...] section and content) DATE CREATED AUTHOR 02/01/2022 [facility] DATE CREATED AUTHOR AUTHOR'S ORGANIZ ATION 08/24/2022 [facility] DATE CREATED AUTHOR AUTHOR'S ORGANIZ ATION 12/15/2022 [facility] DATE CREATED AUTHOR AUTHOR'S ORGANIZ ATION 03/10/2024 [facility] DATE CREATED AUTHOR AUTHOR'S ORGANIZ ATION 03/26/2024 [facility] d[facility] Special[facility] EPIC Care Teams (unrecognized [...] BE BASED ON THE PRIMARY CLINICAL RECORDS. [facility] [employer] [facility]. provides no warranty or guarantee of the accuracy or completeness of information in this document.
== END 2024-03-27 14:12 | disposition home or self-care (01) ==
LOC: CT 14:11
PROVIDERS: PCP Nurse Practitioner; Visit Provider Internal Medicine
DX: Z12.31 Encounter for screening mammogram for malignant neoplasm of breast (principal); Z80.49 Family history of malignant neoplasm of other genital organs; F17.210 Nicotine dependence, cigarettes, uncomplicated; Z12.2 Encounter for screening for malignant neoplasm of respiratory organs
CPT/HCPCS: 71271; 77063; 77067

== ENCOUNTER 2024-07-22 20:27 | Emergency (ER) | payer BC, SELFPAY ==
--- OUTSIDE RECORDS SUMMARY | 2024-07-22 20:33 | XMS_ITS | CCD ---
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 Name Role Phone HEATHER SHANDRA J Primary Care Physician Cecy Chiang Unavailable AICHHOLZ, INSTRUCTOR MILITARY SCIENCE SHANDRA Admitting Unavailable AICHHOLZ, INSTRUCTOR MILITARY SCIENCE SHANDRA Attending Unavailable AICHHOLZ, INSTRUCTOR MILITARY SCIENCE SHANDRA Primary Care Unavailable DR WEST OBANDO V Consulting Unavailable AICHHOLZ, INSTRUCTOR MILITARY SCIENCE SHANDRA Consulting Unavailable MISC, DR IBARRA Admitting Unavailable MISC, DR IBARRA Attending Unavailable AICHHOLZ, INSTRUCTOR MILITARY SCIENCE SHANDRA Primary Care Unavailable MISC, DR IBARRA Consulting Unavailable MISC, DOCTOR Admitting Unavailable MISC, DR IBARRA Attending Unavailable AICHHOLZ, INSTRUCTOR MILITARY SCIENCE SHANDRA Primary Care Unavailable AICHHOLZ, INSTRUCTOR MILITARY SCIENCE SHANDRA Consulting Unavailable MISC, DR IBARRA Consulting Unavailable ZIEBDR TODD GARCIA Consulting Unavailable AICHHOLZ, INSTRUCTOR MILITARY SCIENCE SHANDRA Admitting Unavailable AICHHOLZ, INSTRUCTOR MILITARY SCIENCE SHANDRA Attending Unavailable AICHHOLZ, INSTRUCTOR MILITARY SCIENCE SHANDRA Primary Care Unavailable SAMSA ., ANGELA Admitting Unavailable SAMSA ., ANGELA Attending Unavailable AICHHOLZ, INSTRUCTOR MILITARY SCIENCE SHANDRA Primary Care Unavailable DR TODD JACOBS Consulting Unavailable SAMSA ., ANGELA Consulting Unavailable AICHHOLZ, INSTRUCTOR MILITARY SCIENCE SHANDRA Admitting Unavailable AICHHOLZ, INSTRUCTOR MILITARY SCIENCE SHANDRA Attending Unavailable AICHHOLZ, INSTRUCTOR MILITARY SCIENCE SHANDRA Primary Care Unavailable AICHHOLZ, INSTRUCTOR MILITARY SCIENCE SHANDRA Consulting Unavailable AICHHOLZ, INSTRUCTOR MILITARY SCIENCE SHANDRA Admitting Unavailable AICHHOLZ, INSTRUCTOR MILITARY SCIENCE SHANDRA Attending Unavailable AICHHOLZ, INSTRUCTOR MILITARY SCIENCE SHANDRA Primary Care Unavailable AICHHOLZ, INSTRUCTOR MILITARY SCIENCE SHANDRA Consulting Unavailable AICHHOLZ, INSTRUCTOR MILITARY SCIENCE SHANDRA Admitting Unavailable AICHHOLZ, INSTRUCTOR MILITARY SCIENCE SHANDRA Attending Unavailable AICHHOLZ, INSTRUCTOR MILITARY SCIENCE SHANDRA Primary Care Unavailable DR WEST OBANDO V Consulting Unavailable AICHHOLZ, INSTRUCTOR MILITARY SCIENCE SHANDRA Consulting Unavailable Aichholz, Shandra J Primary Care Provider MD Cecil Taylor Attending Provider [phone] Kendra Woodall Admitting Unavailable Shandra Romero Primary Care Unavailable Kendra Woodall Attending Unavailable Cecil Taylor Attending Unavailable Cecil Taylor Admitting Unavailable Shandra Romero Primary Care Unavailable MAURO VALENCIA Admitting Unavailable MAURO VALENCIA Attending Unavailable REMIGIO HARRIS Referring Unavailable ETTA DAMIAN Consulting Unavailable HEATHER SHANDRA Attending Unavailable SHANDRA ROMERO Attending Unavailable SHANDRA ROMERO Attending Unavailable SHANDRA ROMERO Attending Unavailable Bartolohholcathi BILLING DEPARTMENT SUPERVISOR, Shandra Unavailable Thomas Ortez MD Primary Care Provider Heather BILLING DEPARTMENT SUPERVISOR, Shandra Unavailable Heather BILLING DEPARTMENT SUPERVISOR, Shandra Unavailable Medications Current Medications Medication Drug Class(es) Dates Sig (Normalized) Sig (Original) 8 hr acetaminophen 650 mg extended release oral tablet (6 sources) acetaminophen (Tylenol 8 Hour) 650 MG ER tablet every 8 (eight) hours Active Albuterol (8 sources) beta2-Adrenergic Agonist Start: 09-15-2021 albuterol Refills(s) 0 Start Date: 09/15/21 Status: Ordered take 2 puff(s) by in halation every six hours for wheezing albuterol HFA 90 mcg/act inhaler Inhale 2 puffs every 6 (six) hours if needed for wheezing or shortness of breath Active amitriptyline hydrochloride 25 mg oral tablet (6 sources) Tricyclic Antidepressant Start: 01-17-2024 End: 04-16-2024 take 1 tablet by mouth at bedtime amitriptyline (Elavil) 25 MG tablet Indications: Rheumatoid arthritis, unspecified (CMS/HCC) , Chronic nonintractable headache, unspecified headache type Take 1 tablet (25 mg) by mouth at bedtime 90 tablet 01/17/2024 04/16/2024 Active amoxicillin 875 mg / clavulanate 125 mg oral tablet (3 sources) Penicillin-class Antibacterial Start: 03-03-2024 End: 03-10-2024 take 1 tablet by mouth in the morning amoxicillin-clavula annette (Augmentin) 875-125 MG tablet Take 1 tablet by mouth in the morning and 1 tablet before bedtime. 03/03/2024 03/10/2024 Active atorvastatin (8 sources) HMG-CoA Reductase Inhibitor Start: 09-15-2021 atorvastatin Oral, Daily, Refills(s) 0 Start Date: 09/15/21 Status: Ordered take 1 tablet by mouth at bedtim e atorvastatin (Lipitor) 40 MG tablet Take 40 mg by mouth at bedtime Active benzocaine 15 mg / menthol 3.6 mg oral lozenge (3 sources) Standardized Chemical Allergen Start: 03-03-2024 End: 03-07-2024 benzocaine-menthol (Cepastat Sore Throat) 15-3.6 MG Take 1 lozenge by mouth 03/03/2024 03/07/2024 Discontinued cephalexin 500 mg oral capsule (2 sources) Cephalosporin Antibacterial Start: 09-15-2021 take 1 capsule by mouth once daily Keflex 500 mg Cap 500 mg = 1 cap(s), Oral, Daily, Start 1 day prior to procedure, # 2 cap(s), Refills(s) 0, Pharmacy: [facility]/pharmacy #[id number], 170, cm, 09/15/21 8:33:00 EDT, Height/Length Dosing, 93.9, kg, 09/15/21 8:33:00 EDT, Weight Dosing Start Date: 09/15/21 Status: Ordered cetirizine hydrochloride 10 mg oral tablet (6 sources) Histamine-1 Receptor Antagonist take 1 tablet by mouth once daily cetirizine (ZyrTEC) 10 MG tablet Take 10 mg by mouth Daily Active DULoxetine 60 mg delayed release oral capsule (6 sources) Serotonin and Norepinephrine Reuptake Inhibitor Start: 01-17-2024 End: 04-16-2024 take 1 capsule by mouth once daily DULoxetine (Cymbalta) [address] capsule Indications: Depression, unspecified (CMS/HCC) Take 1 capsule (60 mg) by mouth Daily 90 capsule 1 01/17/2024 04/16/2024 Active Estradiol (2 sources) Estrogen Start: 09-15-2021 Estrace 0.1 mg/g Cream See Instructions, 42.5 gm, Refill(s) 3, Apply pea sized amount 3x a week for 4 weeks and 2x a week after, [facility]/pharmacy #[id number], 170, cm, 09/15/21 8:33:00 EDT, Height/Length Dosing, 93.9, kg, 09/15/21 8:33:00 EDT, Weight Dosing Start Date: 09/15/21 Status: Ordered Etodolac (9 sources) Nonsteroidal Anti-inflammatory Drug Start: 09-15-2021 etodolac Oral, Refills(s) 0 Start Date: 09/15/21 Status: Ordered take 1 tablet by mouth in the mo rning etodolac (Lodine) 500 MG tablet Take 500 mg by mouth in the morning and 500 mg before bedtime. Active Etodolac Active fexofenadine (2 sources) Histamine-1 Receptor Antagonist Start: 09-15-2021 Ashley Oral, Refills(s) 0 Start Date: 09/15/21 Status: Ordered 30 actuat fluticasone furoate 0.1 mg/actuat / umeclidinium 0.0625 mg/actuat / vilanterol 0.025 mg/actuat dry powder inhaler (6 sources) Anticholinergic, Corticosteroid, beta2-Adrenergic Agonist take 1 puff(s) by inhalation once daily Trelegy Ellipta 100-62.5-25 MCG/ACT aerosol powder Inhale 1 puff 1 (one) time each day at the same time Active fluticasone / vilanterol (1 source) Corticosteroid, beta2-Adrenergic Agonist Breo Ellipta Active folic acid 1 mg oral tablet (8 sources) Start: 08-24-2023 take 1 tablet by mouth once daily folic acid (Folvite) 1 MG tablet Take 1,000 mcg by mouth Daily 08/24/2023 Active Start: 09-15-2021 take 1 tablet by jairo th once daily folic acid 1 mg Tab mg tab(s), Oral, Daily, Refills(s) 0 Start Date: 09/15/21 Status: Ordered hydroxychloroquine sulfate 200 mg oral tablet (6 sources) Antimalarial, Antirheumatic Agent take 1 tablet by mouth in the morning hydroxychloroquine (Plaquenil) 200 MG tablet Take 1 tablet by mouth in the morning and 1 tablet before bedtime. Active leflunomide 20 mg oral tablet (6 sources) Antirheumatic Agent take 1 tablet by mouth once daily leflunomide (Arava) 20 MG tablet Take 1 tablet by mouth Daily Active loratadine 10 mg oral tablet (3 sources) End: 03-07 loratadine (Claritin) 10 MG tablet Take by mouth Daily 03/07/2024 Discontinued (Therapy completed) methotrexate 25 mg/ml injectable solution (6 sources) Folate Analog Metabolic Inhibitor inject 0.6 mL by subcutaneous injection every week methotrexate 50 MG/2ML injection INJECT 0.6 MILLILITERS SUBCUTANEOUSLY ONCE A WEEK Active methylPREDNISolone (6 sources) Corticosteroid Start : 08-23 methylPREDNISolone (Medrol Dospak) 4 MG tablets TAKE 6 TABLETS ON DAY 1 DIRECTED ON PACKAGE AND DECREASE BY 1 TAB EACH DAY FOR A TOTAL OF 6 DAYS 08/24/2023 Active omeprazole 20 mg delayed release oral capsule (6 sources) Proton Pump Inhibitor Start : 08-23 take 1 capsule by mouth once daily omeprazole (PriLOSEC) [address] capsule Take 20 mg by mouth Daily 08/24/2023 Active predniSONE 20 mg oral tablet (3 sources) Start : 03-03 End: 03-08 take 2 tablets by mouth once daily predniSONE (Deltasone) 20 MG tablet Take 2 tablets by mouth Daily 03/03/2024 03/08/2024 Active Problems Active Problems Problem Classification Problem Date Documented Date Episodic/Chronic Acute and chronic tonsillitis (12 sources) Peritonsillar abscess; Translations: [Peritonsillar abscess] Onset: 03-02-2024 Episodic Diseases of white blood cells (6 sources) Leukocytosis; Translations: [Elevated white blood cell count, unspecified] Onset: 03-03-2024 03-07-2024 Chronic Disorders of lipid metabolism (12 sources) Hyperlipidemia; Translations: [Hyperlipidemia, unspecified] Onset: 02-01-2022 09-15-2021 Chronic Genitourinary symptoms and ill-defined conditions (9 sources) Mixed incontinence; Translations: [Incontinence] Onset: 09-15-2021 Chronic Mood disorders (6 sources) Depressive disorder; Translations: [Depression, unspecified] Onset: 08-26-2023 08-26-2023 Chronic Osteoarthritis (3 sources) Arthritis; Translations: [Primary generalized (osteo)arthritis] Onset: 06-15-2022 09-15-2021 Chronic Other aftercare (8 sources) Drug-induced immunodeficiency ; 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] Onset: 03-02-2024 03-07-2024 Episodic Other nutritional; endocrine; and metabolic disorders (6 sources) Obesity; Translations: [Obesity, unspecified] Onset: 09-07-2023 09-07-2023 Chronic Other nutritional; endocrine; and metabolic disorders (2 sources) Obesity caused by energy imbalance; Translations: [Other obesity due to excess calories] 03-25-2024 Chronic Other screening for suspected conditions (not mental disorders or infectious disease) (20 sources) Other abnormal and inconclusive findings on diagnostic imaging of breast; Translations: [Encounter for screening, unspecified] Onset: 02-25-2022 Episodic Residual codes; unclassified (1 source) Family history of malignant neoplasm of genital structure; Translations: [Family history of malignant neoplasm of other genital organs] Onset: 09-15-2021 Episodic Rheumatoid arthritis and related disease (14 sources) Rheumatoid arthritis with rheumatoid factor of multiple 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; Translations: [Rheumatoid arthritis of multiple joints] Onset: 06-07-2022 Chronic Substance-related disorders (11 sources) Nicotine dependence; Translations: [Nicotine dependence, unspecified, uncomplicated] Onset: 09-15-2021 Chronic Unclassified (2 sources) Asymptomatic microscopic hematuria 09-15-2021 Unclassified (1 source) Rheumatoid arthritis with rheumatoid factor of multiple 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; Translations: [Rheumatoid arthritis with rheumatoid factor of multiple 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] Onset: 12-06-2022 Past or Other Problems Problem Classification Problem Date Documented Da te Episodic/Chronic Genitourinary symptoms and ill-defined conditions (8 sources) Microscopic hematuria; Translations: [Asymptomatic microscopic hematuria] Onset: 09-15-2021 Episodic Headache; including migraine (6 sources) Headache; Translations: [Headache] Onset: 09-07-2023 09-07-2023 Episodic Immunizations and screening for infectious disease (1 [...] infection, unspecified Onset: 04-14-2021 Resolved: 04-14-2021 Episodic Residual codes; unclassified (8 sources) Family history of malignant neoplasm of cervix uteri; Translations: [Family history of malignant neoplasm of other genital organs] Onset: 12-11-2023 09-15-2021 Episodic Results Test Name Value Interpretation Reference Range Facility Cult, [facility] 03-08-2024 Cult, Blood Specimen Description .BLOOD Special Requests r hand 0.5ml Culture NO GROWTH 5 DAYS Report Status FINAL 03/08/2024 [facility] Comment on above: Performed By: #### B CUL2 #### [facility] [employer] [address] [place], [place] [id number] Clinical Cytogenetics Director: Antwan Rice MD [facility] 03-08-2024 Cult,Blood Specimen Description .BLOOD Special Requests L HAND 0.5ML Culture NO GROWTH 5 DAYS Report Status FINAL 03/08/2024 Normal [facility] Comment on above: Performed By: #### B C #### [place] [address] Clinical Cytogenetics Director: Antwan Rice MD Basic Metab w/rfx MGon 03-03 Anion gap [Moles/Vol] 16 mmol/L Normal 9-16 [facility] Comment on above: Performed By: #### M Christin PRCAL, CDP, BMPX #### [facility] [address] [place] [address] Clinical Cytogenetics Director: Antwan Rice MD Calcium [Mass/Vol] 9.1 mg/dL Normal 8.6-10.4 [facility] Comment on above: Performed By: #### Mandy G, PRCAL, CDP, BMPX #### [facility] [employer] [address] [place] [address] Clinical Cytogenetics Director: Antwan Rice MD Chloride [Moles/Vol] 102 mmol/L Normal 98-107 [facility] Comment on above: Performed By: #### M G, PRCAL, CDP, BMPX #### [facility] [address] [place] [id number] Clinical Cytogenetics Director: Antwan Rice MD CO2 [Moles/Vol] 20 mmol/L Normal 20-31 [facility] Comment on above: Performed By: #### M G, PRCAL, CDP, BMPX #### [facility] [employer] [address] [place] [address] Clinical Cytogenetics Director: Antwan Rice MD Creatinine [Mass/Vol] 0.8 mg/dL Normal 0.50-0.90 [facility] Comment on above: Performed By: #### M G, PRCAL, CDP, BMPX #### [facility] [employer] [address] [place] [address] Clinical Cytogenetics Director: Antwan Rice MD GFR/1.73 sq M.predicted among non-blacks MDRD (S/P/Bld) [Vol rate/Area] 85 mL/min/{1.73_m2} Normal >60 [facility] Comment on above: Result Comment: These results [...] #### M G, PRCAL, CDP, BMPX #### [facility] [employer] [address] [place] [address] Clinical Cytogenetics Director: Antwan Rice MD Glucose [Mass/Vol] 117 mg/dL High 74-99 [facility] Comment on above: Performed By: #### M G, PRCAL, CDP, BMPX #### [employer] [address] [place] [address] Clinical Cytogenetics Director: Antwan Rice MD Potassium [Moles/Vol] 3.5 mmol/L Low 3.7-5.3 [facility] Comment on above: Result Comment: SPEC IMEN SLIGHTLY HEMOLYZED, RESULTS MAY BE ADVERSELY AFFECTED. Performed By: #### M G, PRCAL, CDP, BMPX #### [employer] [address] [place] [address] Clinical Cytogenetics Director: Antwan Rice MD Sodium [Moles/Vol] 138 mmol/L Normal 136-145 [facility] Comment on above: Performed By: #### M G, PRCAL, CDP, BMPX #### [facility] [address] [place] [address] Clinical Cytogenetics Director: Antwan Rice MD Urea nitrogen [Mass/Vol] 17 mg/dL Normal 6-20 [facility] Comment on above: Performed By: #### Mandy Waller, PRCAL, CDP, BMPX #### [facility] [address] [place] [address] Clinical Cytogenetics Director: Antwan Rice MD CBC with Diffon 03-03-2024 Abs. Basophil <0.03 Normal 0.00-0.20 [facility] Comment on above: Performed By: #### M G, PRCAL, CDP, BMPX #### [employer] [address] [place] [address] Clinical Cytogenetics Director: Antwan Rice MD Abs. Eosinophil <0.03 Normal 0.00-0.44 [facility] Comment on above: Performed By: #### M G, PRCAL, CDP, BMPX #### [employer] [address] [place] [address] Clinical Cytogenetics Director: Antwan Rice MD Abs.Imm.Granulocyte 0.08 k/uL Normal 0.00-0.30 [facility] Comment on above: Performed By: #### M G, PRCAL, CDP, BMPX #### [facility] [employer] [address] [place] [address] Clinical Cytogenetics Director: Antwan Rice MD Abs.Neutrophil (Seg) 15.65 k/uL High 1.50-8.10 [facility] Comment on above: Performed By: #### M G, PRCAL, CDP, BMPX #### [facility] [employer] [address] [place] [address] Clinical Cytogenetics Director: Antawn Rice MD Basophils/100 WBC (Bld) 0 % Normal 0-2 [facility] Comment on above: Performed By: #### M G, PRCAL, CDP, BMPX #### [address] [address] Clinical Cytogenetics Director: Antwan Rice MD Eosinophils/100 WBC (Bld) 0 % Low 1-4 [facility] Comment on above: Performed By: #### M G, PRCAL, CDP, BMPX #### [facility] [employer] [address] [place] [address] Clinical Cytogenetics Director: Antwan Rice MD Erythrocyte distribution width (RBC) [Ratio] 13.7 % Normal 11.8-14.4 [facility] Comment on above: Performed By: #### M G, PRCAL, CDP, BMPX #### [facility] [employer] [address] [place] [address] Clinical Cytogenetics Director: Antwan Rice MD Hematocrit (Bld) [Volume fraction] 38.3 % Normal 36.3-47.1 [facility] Comment on above: Performed By: #### M G, PRCAL, CDP, BMPX #### [facility] [employer] [address] [place] [address] Clinical Cytogenetics Director: Antwan Rice MD Hemoglobin (Bld) [Mass/Vol] 12.6 g/dL Normal 11.9-15.1 [facility] Comment on above: Performed By: #### M G, PRCAL, CDP, BMPX #### [address] [address] Clinical Cytogenetics Director: Antwan Rice MD Immature granulocytes/100 WBC (Bld) 1 % High 0 [facility] Comment on above: Performed By: #### M G, PRCAL, CDP, BMPX #### [address] [address] Clinical Cytogenetics Director: Antwan Rice MD Lymphocytes (Bld) [#/Vol] 1.02 10*3/uL Low 1.10-3.70 [facility] Comment on above: Performed By: #### M G, PRCAL, CDP, BMPX #### [address] [address] Clinical Cytogenetics Director: Antwan Rice MD Lymphocytes/100 WBC (Bld) 6 % Low 24-43 [facility] Comment on above: Performed By: #### M G, PRCAL, CDP, BMPX #### [facility] [employer] [address] [place] [address] Clinical Cytogenetics Director: Antwan Rice MD MCH (RBC) [Entitic mass] 28.0 pg Normal 25.2-33.5 [facility] Comment on above: Performed By: #### M G, PRCAL, CDP, BMPX #### [facility] [employer] [address] [place] [address] Clinical Cytogenetics Director: Antwan Rice MD MCHC (RBC) [Mass/Vol] 32.9 g/dL Normal 28.4-34.8 [facility] Comment on above: Performed By: #### M G, PRCAL, CDP, BMPX #### [facility] [employer] [address] [place] [address] Clinical Cytogenetics Director: Antwan Rice MD MCV (RBC) [Entitic vol] 85.1 fL Normal 82.6-102.9 [facility] Comment on above: Performed By: #### M G, PRCAL, CDP, BMPX #### [address] [address] Clinical Cytogenetics Director: Antwan Rice MD Monocytes (Bld) [#/Vol] 0.36 10*3/uL Normal 0.10-1.20 [facility] Comment on above: Performed By: #### M G, PRCAL, CDP, BMPX #### [address] [address] Clinical Cytogenetics Director: Antwan Rice MD Monocytes/100 WBC (Bld) 2 % Low 3-12 [facility] Comment on above: Performed By: #### Mandy G, PRCAL, CDP, BMPX #### [address] [address] Clinical Cytogenetics Director: Antwan Rice MD Neutrophil (Seg) 91 % High 36-65 [facility] Comment on above: Performed By: #### M G, PRCAL, CDP, BMPX #### [address] [address] Clinical Cytogenetics Director: Antwan Rice MD NRBC Automated 0.0 per 100 WBC Normal 0.0 [facility] Comment on above: Performed By: #### M G, PRCAL, CDP, BMPX #### [facility] [employer] [address] [place] [address] Clinical Cytogenetics Director: Antwan Rice MD Platelet mean volume (Bld) [Entitic vol] 9.6 fL Normal 8.1-13.5 [facility] Comment on above: Performed By: #### M G, PRCAL, CDP, BMPX #### [facility] [employer] [address] [place] [address] Clinical Cytogenetics Director: Antwan Rice MD Platelets (Bld) [#/Vol] 287 10*3/uL Normal 138-453 [facility] Comment on above: Performed By: #### Mandy G, PRCAL, CDP, BMPX #### [facility] [place] [address] Clinical Cytogenetics Director: Antwan Rice MD RBC (Bld) [#/Vol] 4.50 10*6/uL Normal 3.95-5.11 [facility] Comment on above: Performed By: #### M G, PRCAL, CDP, BMPX #### [facility] [employer] [address] [place] [address] Clinical Cytogenetics Director: Antwan Rice MD WBC (Bld) [#/Vol] 17.1 10*3/uL High 3.5-11.3 [facility] Comment on above: Performed By: #### Mandy Waller, PRCAL, CDP, BMPX #### [facility] [address] [place] [address] Clinical Cytogenetics Director: Antwan Rice MD Comp Metabolic Pr/rfx MGon 0 - Albumin [Mass/Vol] 4.3 g/dL Normal 3.5-5.2 [facility] Comment on above: Performed By: #### C MPX, MG #### [facility] [employer] [address] [place] [phone] Clinical Cytogenetics Director: Antwan Rice MD Albumin/Glob Ratio 1.0 Normal 1.0-2.5 [facility] Comment on above: Performed By: #### C MPX, MG #### [facility] [employer] [address] [place] [address] Clinical Cytogenetics Director: Antwan Rice MD Alkaline Phos 102 U/L Normal 35-104 [facility] Comment on above: Performed By: #### C MPX, MG #### [facility] [address] [place] [address] Clinical Cytogenetics Director: Antwan Rice MD ALT [Catalytic activity/Vol] 7 U/L Low 10-35 [facility] Comment on above: Performed By: #### C MPX, MG #### [address] [address] Clinical Cytogenetics Director: Antwan Rice MD Anion gap [Moles/Vol] 17 mmol/L High 9-16 [facility] Comment on above: Performed By: #### C MPX, MG #### [address] [address] Clinical Cytogenetics Director: Antwan Rice MD AST [Catalytic activity/Vol] 17 U/L Normal 10-35 [facility] Comment on above: Performed By: #### C MPX, MG #### [address] [address] Clinical Cytogenetics Director: Antwan Rice MD Bilirubin [Mass/Vol] 0.3 mg/dL Normal 0.00-1.20 [facility] Comment on above: Performed By: #### C MPX, MG #### [address] [address] Clinical Cytogenetics Director: Antwan Rice MD Calcium [Mass/Vol] 9.5 mg/dL Normal 8.6-10.4 [facility] Comment on above: Performed By: #### C MPX, MG #### [address] [address] Clinical Cytogenetics Director: Antwan Rice MD Chloride [Moles/Vol] 100 mmol/L Normal 98-107 [facility] Comment on above: Performed By: #### C MPX, MG #### [address] [address] Clinical Cytogenetics Director: Antwan Rice MD CO2 [Moles/Vol] 20 mmol/L Normal 20-31 [facility] Comment on above: Performed By: #### C MPX, MG #### [facility] [employer] [address] [place] [id number] Clinical Cytogenetics Director: Antwan Rice MD Creatinine [Mass/Vol] 0.8 mg/dL Normal 0.50-0.90 [facility] Comment on above: Performed By: #### C MPX, MG #### [address] [address] Clinical Cytogenetics Director: Antwan Rice MD GFR/1.73 sq M.predicted among non-blacks MDRD (S/P/Bld) [Vol rate/Area] mL/min/{1.73_m2} Normal >60 [facility] Comment on above: Result Comment: These results [...] Performed By: #### C MPX, MG #### [address] [address] Clinical Cytogenetics Director: Antwan Rice MD Glucose [Mass/Vol] 132 mg/dL High 74-99 [facility] Comment on above: Performed By: #### C MPX, MG #### [address] [address] Clinical Cytogenetics Director: Antwan Rice MD Potassium [Moles/Vol] 3.5 mmol/L Low 3.7-5.3 [facility] Comment on above: Performed By: #### C MPX, MG #### [address] [address] Clinical Cytogenetics Director: Antwan Rice MD Protein [Mass/Vol] 7.8 g/dL Normal 6.6-8.7 [facility] Comment on above: Performed By: #### C MPX, MG #### [facility] [place] [address] Clinical Cytogenetics Director: Antwan Rice MD Sodium [Moles/Vol] 137 mmol/L Normal 136-145 [facility] Comment on above: Performed By: #### C MPX, MG #### [facility] [address] [place] [address] Clinical Cytogenetics Director: Antwan Rice MD Urea nitrogen [Mass/Vol] 11 mg/dL Normal 6-20 [facility] Comment on above: Performed By: #### C MPX, MG #### [facility] [address] [place] [address] Clinical Cytogenetics Director: Antwan Rice MD Magnesiumon 03-03-2024 Magnesium [Mass/Vol] 2.4 mg/dL Normal 1.6-2.6 [facility] Comment on above: Performed By: #### M G, PRCAL, CDP, BMPX #### [facility] [address] [place] [address] Clinical Cytogenetics Director: Antwan Rice MD Magnesium [Mass/Vol] 2.4 mg/dL Normal 1.6-2.6 [facility] Comment on above: Performed By: #### C MPX, MG #### [facility] [employer] [address] [place] [address] Clinical Cytogenetics Director: Antwan Rice MD Procalcitoninon 03-03-2024 Procalcitonin 0.13 ng/mL High 0.00-0.09 [facility] Comment on above: Result Comment: Suspected Sepsis: [...] entered into the Change in Procalcitonin Calculator ([email or web address]) to determine the patient's Mortality Risk Prognosis In healthy neonates, plasma Procalcitonin (PCT) concentrations increase gradually after , reaching peak values at about 24 hours of age then decrease to normal values below 0.5 ng/mL by 48-72 hours of age. Performed By: #### M G, PRCAL, CDP, BMPX #### [employer] [facility] [place] [address] Clinical Cytogenetics Director: Antwan iRce MD Alanine aminotransferase [En zymatic activity/volume] in Serum or PlasmaOrdered By: Yayo Taylor on 12-06-2022 ALT [Catalytic activity/Vol] 12 U/L 7-52 [facility] Albumin [Mass/volume] in Ser um or Plasma by Bromocresol green (BCG) dye binding methoOrdered By: Yayo Taylor on 12-06-2022 Albumin BCG dye [Mass/Vol] 4.6 g/dL 3.5-5.7 [facility] Alkaline phosphatase [Enzyma tic activity/volume] in Serum or PlasmaOrdered By: Yayo Taylor on 12-06-2022 ALP [Catalytic activity/Vol] 79 U/L 34-104 [facility] Aspartate aminotransferase [ Enzymatic activity/volume] in Serum or PlasmaOrdered By: Yayo Taylor on 12-06-2022 AST [Catalytic activity/Vol] 15 U/L 13-39 [facility] Basophils Auto (Bld) [#/Vol] Ordered By: Yayo Taylor on 12-06-2022 Basophils (Bld) [#/Vol] 0.0 10*3/uL 0.0-0.2 [facility] Basophils/100 WBC Auto (Bld) Ordered By: Yayo Taylor on 12-06-2022 Basophils/100 WBC (Bld) 0.6 % . [facility] Bilirubin.total [Mass/volume ] in Serum or PlasmaOrdered By: Yayo Taylor on 12-06-2022 Bilirubin [Mass/Vol] 0.3 mg/dL 0.3-1.0 [facility] Calcium [Mass/volume] in Ser um or PlasmaOrdered By: Yayo Taylor on 12-06-2022 Calcium [Mass/Vol] 9.6 mg/dL 8.6-10.3 [facility] Carbon dioxide, total [Moles /volume] in Serum or PlasmaOrdered By: Yayo Taylor on 12-06-2022 CO2 [Moles/Vol] 29.0 mmol/L 21.0-31.0 [facility] Chloride [Moles/volume] in S dot or PlasmaOrdered By: Yayo Taylor on 12-06-2022 Chloride [Moles/Vol] 105 mmol/L 98-107 [facility] Complete Blood Count Auto Di ffon 12-06-2022 Basophils (Bld) [#/Vol] 0.0 10*3/uL Normal 0.0-0.2 [facility] Comment on above: Performed By: #### C BC, CMP, ESR #### [facility] [address] [place] [address] [place] Basophils/100 WBC (Bld) 0.6 % Normal . [facility] Comment on above: Performed By: #### C BC, CMP, ESR #### [facility] [address] [place] [address] [place] Eosinophils (Bld) [#/Vol] 0.2 10*3/uL Normal 0.0-0.45 [facility] Comment on above: Performed By: #### C BC, CMP, ESR #### [facility] [address] [place] [id number] [place] Eosinophils/100 WBC (Bld) 2.7 % Normal . [facility] Comment on above: Performed By: #### C BC, CMP, ESR #### [facility] [address] [place] [id number] [place] Erythrocyte distribution width (RBC) [Ratio] 14.2 % Normal 11.9-15.3 [facility] Comment on above: Performed By: #### C BC, CMP, ESR #### [facility] [address] Hematocrit (Bld) [Volume fraction] 38.4 % Normal 34.0-46.4 [facility] Comment on above: Performed By: #### C BC, CMP, ESR #### [facility] [address] Hemoglobin (Bld) [Mass/Vol] 12.7 g/dL Normal 11.8-15.4 [facility] Comment on above: Performed By: #### C BC, CMP, ESR #### [facility] [address] Lymphocytes (Bld) [#/Vol] 2.4 10*3/uL Normal 1.00-4.8 [facility] Comment on above: Performed By: #### C BC, CMP, ESR #### [address] Lymphocytes/100 WBC (Bld) 32.4 % Normal . [facility] Comment on above: Performed By: #### C BC, CMP, ESR #### [address] MCH (RBC) [Entitic mass] 28.5 pg Normal 24.7-34.3 [facility] Comment on above: Performed By: #### C BC, CMP, ESR #### [address] MCV (RBC) [Entitic vol] 86.3 fL Normal 80-100 [facility] Comment on above: Performed By: #### C BC, CMP, ESR #### [address] Mean Corpuscular HGB Conc 33.0 g/dL Normal 32.0-35.0 [facility] Comment on above: Performed By: #### C BC, CMP, ESR #### [address] Monocytes (Bld) [#/Vol] 0.5 10*3/uL Normal 0.0-0.8 [facility] Comment on above: Performed By: #### C BC, CMP, ESR #### [facility] [address] [place] [address] [place] Monocytes/100 WBC (Bld) 6.3 % Normal . [facility] Comment on above: Performed By: #### C BC, CMP, ESR #### [facility] [address] [place] [address] [place] Neutrophils (Bld) [#/Vol] 4.3 10*3/uL Normal 1.8-7.7 [facility] Comment on above: Performed By: #### C BC, CMP, ESR #### [facility] [address] Neutrophils/100 WBC (Bld) 58.0 % Normal . [facility] Comment on above: Performed By: #### C BC, CMP, ESR #### [facility] [address] [place] [address] [place] NRBC% 0.0 /100{WBC} Normal 0-0.5 [facility] Comment on above: Performed By: #### C BC, CMP, ESR #### [facility] [address] [place] [address] [place] Platelet mean volume (Bld) [Entitic vol] 7.6 fL Normal 6.3-10.7 [facility] Comment on above: Performed By: #### C BC, CMP, ESR #### [facility] [address] [place] [address] [place] Platelets (Bld) [#/Vol] 368 10*3/uL Normal 150-450 [facility] Comment on above: Performed By: #### C BC, CMP, ESR #### [facility] [address] [place] [address] [place] RBC (Bld) [#/Vol] 4.45 10*6/uL Normal 3.60-5.00 [facility] Comment on above: Performed By: #### C BC, CMP, ESR #### [facility] [address] [place] [address] [place] WBC (Bld) [#/Vol] 7.4 10*3/uL Normal 3.8-11.6 [facility] Comment on above: Performed By: #### C BC, CMP, ESR #### [address] Comprehensive Metabolic Pane nico 12-06-2022 Albumin [Mass/Vol] 4.6 g/dL Normal 3.5-5.7 [facility] Comment on above: Performed By: #### C BC, CMP, ESR #### [address] Albumin/Globulin [Mass ratio] 1.9 {ratio} Normal [facility] Comment on above: Performed By: #### C BC, CMP, ESR #### [address] ALP [Catalytic activity/Vol] 79 U/L Normal 34-104 [facility] Comment on above: Result Comment: PERF ORMED BY: [place] [address] PATHOLOGIST LD TEACHER FELICIANO PIERCE M.D. Performed By: #### C BC, CMP, ESR #### [address] ALT [Catalytic activity/Vol] 12 U/L Normal 7-52 [facility] Comment on above: Performed By: #### C BC, CMP, ESR #### [address] Anion gap [Moles/Vol] 10.1 mmol/L Normal 6.0-15.0 [facility] Comment on above: Performed By: #### C BC, CMP, ESR #### [address] AST [Catalytic activity/Vol] 15 U/L Normal 13-39 [facility] Comment on above: Performed By: #### C BC, CMP, ESR #### [address] Bilirubin [Mass/Vol] 0.3 mg/dL Normal 0.3-1.0 [facility] Comment on above: Performed By: #### C BC, CMP, ESR #### [facility] [address] Calcium [Mass/Vol] 9.6 mg/dL Normal 8.6-10.3 [facility] Comment on above: Performed By: #### C BC, CMP, ESR #### [facility] [address] Chloride [Moles/Vol] 105 mmol/L Normal 98-107 [facility] Comment on above: Performed By: #### C BC, CMP, ESR #### [facility] [address] CO2 [Moles/Vol] 29.0 mmol/L Normal 21.0-31.0 [facility] Comment on above: Performed By: #### C BC, CMP, ESR #### [facility] [address] Creatinine [Mass/Vol] 0.89 mg/dL Normal 0.60-1.20 [facility] Comment on above: Performed By: #### C BC, CMP, ESR #### [facility] [address] [place] [address] [place] GFR/1.73 sq M.predicted MDRD (S/P/Bld) [Vol rate/Area] mL/min/{1.73_m2} [facility] Comment on above: Performed By: #### C BC, CMP, ESR #### [facility] [address] Globulin (S) [Mass/Vol] 2.4 g/dL Normal [facility] Comment on above: Performed By: #### C BC, CMP, ESR #### [facility] [address] Glucose [Mass/Vol] 83 mg/dL Normal 70-100 [facility] Comment on above: Result Comment: [facility] Glucose Reference Range is dependent on time and content of last meal. Glucose of more than 200 mg/dL in a nonstressed, ambulatory subject supports the diagnosis of Diabetes Mellitus. ADA recommended reference range Performed By: #### C BC, CMP, ESR #### [facility] [address] [place] [address] [place] Potassium [Moles/Vol] 4.1 mmol/L Normal 3.5-5.1 [facility] Comment on above: Performed By: #### C BC, CMP, ESR #### [facility] [address] [place] [address] [place] Protein [Mass/Vol] 7.0 g/dL Normal 6.4-8.9 [facility] Comment on above: Performed By: #### C BC, CMP, ESR #### [facility] [address] Sodium [Moles/Vol] 140 mmol/L Normal 136-145 [facility] Comment on above: Performed By: #### C BC, CMP, ESR #### [facility] [address] [place] [address] [place] Urea nitrogen [Mass/Vol] 15 mg/dL Normal 7-25 [facility] Comment on above: Performed By: #### C BC, CMP, ESR #### [facility] [address] Creatinine [Mass/volume] in Serum or PlasmaOrdered By: Yayo Taylor on 12-06-2022 Creatinine [Mass/Vol] 0.89 mg/dL 0.60-1.20 [facility] Eosinophils Auto (Bld) [#/Vo l]Ordered By: Yayo Taylor on 12-06-2022 Eosinophils (Bld) [#/Vol] 0.2 10*3/uL 0.0-0.45 [facility] Eosinophils/100 WBC Auto (Bl d)Ordered By: Yayo Taylor on 12-06-2022 Eosinophils/100 WBC (Bld) 2.7 % . [facility] Erythrocyte Sedimentation Ra cristela 12-06-2022 ESR (Bld) [Velocity] 27 mm/h Normal 0-29 [facility] Comment on above: Result Comment: PERF ORMED BY: [facility] [address] [place] [address] PATHOLOGIST LD TEACHER FELICIANO PIERCE M.D. Performed By: #### C BC, CMP, ESR #### [facility] [address] Erythrocyte distribution wid th Auto (RBC) [Ratio]Ordered By: Yayo Taylor on 12-06-2022 Erythrocyte distribution width (RBC) [Ratio] 14.2 % 11.9-15.3 [facility] Erythrocyte sedimentation ra te by Photometric methodOrdered By: Yayo Taylor on 12-06-2022 ESR Photometric method (Bld) [Velocity] 27 mm/hr 0-29 [facility] Globulin Calc (S) [Mass/Vol] Ordered By: Yayo Taylor on 12-06-2022 Globulin (S) [Mass/Vol] 2.4 g/dL [facility] Glucose [Mass/volume] in Ser um or PlasmaOrdered By: Yayo Taylor on 12-06-2022 Glucose [Mass/Vol] 83 mg/dL 70-100 [facility] Comment on above: ADA recommended refe rence rangeRandom Glucose Reference Range is dependent on time and content of last meal. Glucose of more than 200 mg/dL in a nonstressed, ambulatory subject supports the diagnosis of Diabetes Mellitus. Hematocrit Auto (Bld) [Volum e fraction]Ordered By: Yayo Taylor on 12-06-2022 Hematocrit (Bld) [Volume fraction] 38.4 % 34.0-46.4 [facility] Hemoglobin [Mass/volume] in BloodOrdered By: Yayo Taylor on 12-06-2022 Hemoglobin (Bld) [Mass/Vol] 12.7 g/dL 11.8-15.4 [facility] Leukocytes [#/volume] correc jin for nucleated erythrocytes in Blood by Automated counOrdered By: Yayo Taylor on 12-06-2022 WBC corrected for nucl RBC Auto (Bld) [#/Vol] 7.4 10*3/uL 3.8-11.6 [facility] Lymphocytes Auto (Bld) [#/Vo l]Ordered By: Yayo Taylor on 12-06-2022 Lymphocytes (Bld) [#/Vol] 2.4 10*3/uL 1.00-4.8 [facility] Lymphocytes/100 WBC Auto (Bl d)Ordered By: Yayo Taylor on 12-06-2022 Lymphocytes/100 WBC (Bld) 32.4 % . [facility] MCH Auto (RBC) [Entitic mass ]Ordered By: Yayo Taylor on 12-06-2022 MCH (RBC) [Entitic mass] 28.5 pg 24.7-34.3 [facility] MCHC Auto (RBC) [Mass/Vol]Or dered By: Yayo Taylor on 12-06-2022 MCHC (RBC) [Mass/Vol] 33.0 g/dL 32.0-35.0 [facility] MCV Auto (RBC) [Entitic vol] Ordered By: Yayo Taylor on 12-06-2022 MCV (RBC) [Entitic vol] 86.3 fL 80-100 [facility] Monocytes Auto (Bld) [#/Vol] Ordered By: Yayo Taylor on 12-06-2022 Monocytes (Bld) [#/Vol] 0.5 10*3/uL 0.0-0.8 [facility] Monocytes/100 WBC Auto (Bld) Ordered By: Yayo Taylor on 12-06-2022 Monocytes/100 WBC (Bld) 6.3 % . [facility] Neutrophils Auto (Bld) [#/Vo l]Ordered By: Yayo Taylor on 12-06-2022 Neutrophils (Bld) [#/Vol] 4.3 10*3/uL 1.8-7.7 [facility] Neutrophils/100 WBC Auto (Bl d)Ordered By: Yayo Taylor on 12-06-2022 Neutrophils/100 WBC (Bld) 58.0 % . [facility] No Panel InformationOrdered By: Yayo Taylor on 12-06-2022 Estimated GFR (CKD-EPI) > 60.0 mL/Min [facility] Creatinine Clearance (Chem N/A [facility] Nucleated erythrocytes [Pres ence] in Blood by Automated countOrdered By: Yayo Taylor on 12-06-2022 Nucleated RBC Auto Ql (Bld) 0.0 /100{WBC} 0-0.5 [facility] Platelet mean volume Auto (B ld) [Entitic vol]Ordered By: Yayo Taylor on 12-06-2022 Platelet mean volume (Bld) [Entitic vol] 7.6 fL 6.3-10.7 [facility] Platelets Auto (Bld) [#/Vol] Ordered By: Yayo Taylor on 12-06-2022 Platelets (Bld) [#/Vol] 368 10*3/uL 150-450 [facility] Potassium [Moles/volume] in Serum or PlasmaOrdered By: Yayo Taylor on 12-06-2022 Potassium [Moles/Vol] 4.1 mmol/L 3.5-5.1 [facility] Protein [Mass/volume] in Ser um or PlasmaOrdered By: Yayo Taylor on 12-06-2022 Protein [Mass/Vol] 7.0 g/dL 6.4-8.9 [facility] RBC Auto (Bld) [#/Vol]Ordere d By: Yayo Taylor on 12-06-2022 RBC (Bld) [#/Vol] 4.45 10*6/uL 3.60-5.00 [facility] Serum or plasma albumin/glob ulin mass ratioOrdered By: Yayo Taylor on 12-06-2022 Albumin/Globulin [Mass ratio] 1.9 {ratio} [facility] Serum or plasma anion gap de terminationOrdered By: Yayo Taylor on 12-06-2022 Anion gap [Moles/Vol] 10.1 mmol/L 6.0-15.0 [facility] Sodium [Moles/volume] in Ser um or PlasmaOrdered By: Yayo Taylor on 12-06-2022 Sodium [Moles/Vol] 140 mmol/L 136-145 [facility] Urea nitrogen [Mass/volume] in Serum or PlasmaOrdered By: Yayo Taylor on 12-06-2022 Urea nitrogen [Mass/Vol] 15 mg/dL 7-25 [facility] WBC Auto (Bld) [#/Vol]Ordere d By: Yayo Taylor on 12-06-2022 WBC (Bld) [#/Vol] 7.4 10*3/uL 3.8-11.6 [facility] Alanine aminotransferase [En zymatic activity/volume] in Serum or PlasmaOrdered By: Yayo Taylor on 10-03-2022 ALT [Catalytic activity/Vol] 11 U/L 7-52 [facility] Albumin [Mass/volume] in Ser um or Plasma by Bromocresol green (BCG) dye binding methoOrdered By: Yayo Taylor on 10-03-2022 Albumin BCG dye [Mass/Vol] 4.1 g/dL 3.5-5.7 [facility] Alkaline phosphatase [Enzyma tic activity/volume] in Serum or PlasmaOrdered By: Yayo Taylor on 10-03-2022 ALP [Catalytic activity/Vol] 84 U/L 34-104 [facility] Aspartate aminotransferase [ Enzymatic activity/volume] in Serum or PlasmaOrdered By: Yayo Taylor on 10-03-2022 AST [Catalytic activity/Vol] 16 U/L 13-39 [facility] Basophils Auto (Bld) [#/Vol] Ordered By: Yayo Taylor on 10-03-2022 Basophils (Bld) [#/Vol] 0.1 10*3/uL 0.0-0.2 [facility] Basophils/100 WBC Auto (Bld) Ordered By: Yayo Taylor on 10-03-2022 Basophils/100 WBC (Bld) 0.9 % . [facility] Bilirubin.total [Mass/volume ] in Serum or PlasmaOrdered By: Yayo Taylor on 10-03-2022 Bilirubin [Mass/Vol] 0.3 mg/dL 0.3-1.0 [facility] Calcium [Mass/volume] in Ser um or PlasmaOrdered By: Yayo Taylor on 10-03-2022 Calcium [Mass/Vol] 8.5 mg/dL 8.6-10.3 [facility] Carbon dioxide, total [Moles /volume] in Serum or PlasmaOrdered By: Yayo Taylor on 10-03-2022 CO2 [Moles/Vol] 27.2 mmol/L 21.0-31.0 [facility] Chloride [Moles/volume] in S dot or PlasmaOrdered By: Yayo Taylor on 10-03-2022 Chloride [Moles/Vol] 106 mmol/L 98-107 [facility] Complete Blood Count Auto Di ffon 10-03-2022 Basophils (Bld) [#/Vol] 0.1 10*3/uL Normal 0.0-0.2 [facility] Comment on above: Performed By: #### C BC, CMP, ESR #### [facility] [address] [place] [address] [place] Basophils/100 WBC (Bld) 0.9 % Normal . [facility] Comment on above: Performed By: #### C BC, CMP, ESR #### [facility] [address] [place] [address] [place] Eosinophils (Bld) [#/Vol] 0.4 10*3/uL Normal 0.0-0.45 [facility] Comment on above: Performed By: #### C BC, CMP, ESR #### [facility] [address] Eosinophils/100 WBC (Bld) 5.0 % Normal . [facility] Comment on above: Performed By: #### C BC, CMP, ESR #### [facility] [address] Erythrocyte distribution width (RBC) [Ratio] 14.7 % Normal 11.9-15.3 [facility] Comment on above: Performed By: #### C BC, CMP, ESR #### [facility] [address] Hematocrit (Bld) [Volume fraction] 36.3 % Normal 34.0-46.4 [facility] Comment on above: Performed By: #### C BC, CMP, ESR #### [facility] [address] Hemoglobin (Bld) [Mass/Vol] 12.3 g/dL Normal 11.8-15.4 [facility] Comment on above: Performed By: #### C BC, CMP, ESR #### [facility] [address] [place] [address] [place] Lymphocytes (Bld) [#/Vol] 2.1 10*3/uL Normal 1.00-4.8 [facility] Comment on above: Performed By: #### C BC, CMP, ESR #### [facility] [address] [place] [address] [place] Lymphocytes/100 WBC (Bld) 29.3 % Normal . [facility] Comment on above: Performed By: #### C BC, CMP, ESR #### [facility] [address] MCH (RBC) [Entitic mass] 29.4 pg Normal 24.7-34.3 [facility] Comment on above: Performed By: #### C BC, CMP, ESR #### [facility] [address] MCV (RBC) [Entitic vol] 86.4 fL Normal 80-100 [facility] Comment on above: Performed By: #### C BC, CMP, ESR #### [facility] [address] Mean Corpuscular HGB Conc 34.0 g/dL Normal 32.0-35.0 [facility] Comment on above: Performed By: #### C BC, CMP, ESR #### [facility] [address] [place] [address] [place] Monocytes (Bld) [#/Vol] 0.5 10*3/uL Normal 0.0-0.8 [facility] Comment on above: Performed By: #### C BC, CMP, ESR #### [facility] [address] [place] [address] [place] Monocytes/100 WBC (Bld) 7.3 % Normal . [facility] Comment on above: Performed By: #### C BC, CMP, ESR #### [facility] [address] [place] [address] [place] Neutrophils (Bld) [#/Vol] 4.1 10*3/uL Normal 1.8-7.7 [facility] Comment on above: Performed By: #### C BC, CMP, ESR #### [facility] [address] [place] [address] [place] Neutrophils/100 WBC (Bld) 57.5 % Normal . [facility] Comment on above: Performed By: #### C BC, CMP, ESR #### [facility] [address] NRBC% 0.3 /100{WBC} Normal 0-0.5 [facility] Comment on above: Performed By: #### C BC, CMP, ESR #### [address] Platelet mean volume (Bld) [Entitic vol] 7.9 fL Normal 6.3-10.7 [facility] Comment on above: Performed By: #### C BC, CMP, ESR #### [address] Platelets (Bld) [#/Vol] 369 10*3/uL Normal 150-450 [facility] Comment on above: Performed By: #### C BC, CMP, ESR #### [address] RBC (Bld) [#/Vol] 4.20 10*6/uL Normal 3.60-5.00 [facility] Comment on above: Performed By: #### C BC, CMP, ESR #### [address] WBC (Bld) [#/Vol] 7.1 10*3/uL Normal 3.8-11.6 [facility] Comment on above: Performed By: #### C BC, CMP, ESR #### [address] Comprehensive Metabolic Pane nico 10-03-2022 Albumin [Mass/Vol] 4.1 g/dL Normal 3.5-5.7 [facility] Comment on above: Performed By: #### C BC, CMP, ESR #### [address] Albumin/Globulin [Mass ratio] 1.6 {ratio} Normal [facility] Comment on above: Performed By: #### C BC, CMP, ESR #### [facility] [address] ALP [Catalytic activity/Vol] 84 U/L Normal 34-104 [facility] Comment on above: Result Comment: PERF ORMED BY: [place] [address] PATHOLOGIST LD TEACHER FELICIANO PIERCE M.D. Performed By: #### C BC, CMP, ESR #### [facility] [address] ALT [Catalytic activity/Vol] 11 U/L Normal 7-52 [facility] Comment on above: Performed By: #### C BC, CMP, ESR #### [address] Anion gap [Moles/Vol] 10.7 mmol/L Normal 6.0-15.0 [facility] Comment on above: Performed By: #### C BC, CMP, ESR #### [address] AST [Catalytic activity/Vol] 16 U/L Normal 13-39 [facility] Comment on above: Performed By: #### C BC, CMP, ESR #### [address] Bilirubin [Mass/Vol] 0.3 mg/dL Normal 0.3-1.0 [facility] Comment on above: Performed By: #### C BC, CMP, ESR #### [address] Calcium [Mass/Vol] 8.5 mg/dL Low 8.6-10.3 [facility] Comment on above: Performed By: #### C BC, CMP, ESR #### [facility] [address] [place] [address] Chloride [Moles/Vol] 106 mmol/L Normal 98-107 [facility] Comment on above: Performed By: #### C BC, CMP, ESR #### [facility] [address] [place] [address] [place] CO2 [Moles/Vol] 27.2 mmol/L Normal 21.0-31.0 [facility] Comment on above: Performed By: #### C ELLIOTT CMP, ESR #### [facility] [address] Creatinine [Mass/Vol] 0.88 mg/dL Normal 0.60-1.20 [facility] Comment on above: Performed By: #### C ELLIOTT, CMP, ESR #### [facility] [address] [place] [address] [place] GFR/1.73 sq M.predicted MDRD (S/P/Bld) [Vol rate/Area] mL/min/{1.73_m2} Normal [facility] Comment on above: Performed By: #### C ELLIOTT CMP, ESR #### [facility] [address] Globulin (S) [Mass/Vol] 2.6 g/dL Normal [facility] Comment on above: Performed By: #### C ELLIOTT CMP, ESR #### [facility] [address] Glucose [Mass/Vol] 98 mg/dL Normal 70-100 [facility] Comment on above: Result Comment: [facility] [facility] Glucose Reference Range is dependent on time and content of last meal. Glucose of more than 200 mg/dL in a nonstressed, ambulatory subject supports the diagnosis of Diabetes Mellitus. ADA recommended reference range Performed By: #### C ELLIOTT CMP, ESR #### [facility] [address] [place] [address] [place] Potassium [Moles/Vol] 3.9 mmol/L Normal 3.5-5.1 [facility] Comment on above: Performed By: #### C ELLIOTT CMP, ESR #### [facility] [address] [place] [id number] [place] Protein [Mass/Vol] 6.7 g/dL Normal 6.4-8.9 [facility] Comment on above: Performed By: #### C BC, CMP, ESR #### [facility] [address] [place] [id number] [place] Sodium [Moles/Vol] 140 mmol/L Normal 136-145 [facility] Comment on above: Performed By: #### C BC, CMP, ESR #### [facility] [address] Urea nitrogen [Mass/Vol] 20 mg/dL Normal 7-25 [facility] Comment on above: Performed By: #### C BC, CMP, ESR #### [facility] [address] [place] [address] Creatinine [Mass/volume] in Serum or PlasmaOrdered By: Yayo Taylor on 10-03-2022 Creatinine [Mass/Vol] 0.88 mg/dL 0.60-1.20 [facility] Eosinophils Auto (Bld) [#/Vo l]Ordered By: Yayo Taylor on 10-03-2022 Eosinophils (Bld) [#/Vol] 0.4 10*3/uL 0.0-0.45 [facility] Eosinophils/100 WBC Auto (Bl d)Ordered By: Yayo Taylor on 10-03-2022 Eosinophils/100 WBC (Bld) 5.0 % . [facility] Erythrocyte Sedimentation Ra cristela 10-03-2022 ESR (Bld) [Velocity] 22 mm/h Normal 0-29 [facility] Comment on above: Result Comment: PERF ORMED BY: [place] [address] PATHOLOGIST LD TEACHER FELICIANO PIERCE M.D. Performed By: #### C BC, CMP, ESR #### [facility] [address] [place] [address] Erythrocyte distribution wid th Auto (RBC) [Ratio]Ordered By: Yayo Taylor on 10-03-2022 Erythrocyte distribution width (RBC) [Ratio] 14.7 % 11.9-15.3 [facility] Erythrocyte sedimentation ra te by Photometric methodOrdered By: Yayo Taylor on 10-03-2022 ESR Photometric method (Bld) [Velocity] 22 mm/hr 0-29 [facility] Globulin Calc (S) [Mass/Vol] Ordered By: Yayo Taylor on 10-03-2022 Globulin (S) [Mass/Vol] 2.6 g/dL [facility] Glucose [Mass/volume] in Ser um or PlasmaOrdered By: Yayo Taylor on 10-03-2022 Glucose [Mass/Vol] 98 mg/dL 70-100 [facility] Comment on above: ADA recommended refe rence rangeRandom Glucose Reference Range is dependent on time and content of last meal. Glucose of more than 200 mg/dL in a nonstressed, ambulatory subject supports the diagnosis of Diabetes Mellitus. Hematocrit Auto (Bld) [Volum e fraction]Ordered By: Yayo Taylor on 10-03-2022 Hematocrit (Bld) [Volume fraction] 36.3 % 34.0-46.4 [facility] Hemoglobin [Mass/volume] in BloodOrdered By: Yayo Taylor on 10-03-2022 Hemoglobin (Bld) [Mass/Vol] 12.3 g/dL 11.8-15.4 [facility] Leukocytes [#/volume] correc jin for nucleated erythrocytes in Blood by Automated counOrdered By: Yayo Taylor on 10-03-2022 WBC corrected for nucl RBC Auto (Bld) [#/Vol] 7.1 10*3/uL 3.8-11.6 [facility] Lymphocytes Auto (Bld) [#/Vo l]Ordered By: Yayo Taylor on 10-03-2022 Lymphocytes (Bld) [#/Vol] 2.1 10*3/uL 1.00-4.8 [facility] Lymphocytes/100 WBC Auto (Bl d)Ordered By: Yayo Taylor on 10-03-2022 Lymphocytes/100 WBC (Bld) 29.3 % . [facility] MCH Auto (RBC) [Entitic mass ]Ordered By: Yayo Taylor on 10-03-2022 MCH (RBC) [Entitic mass] 29.4 pg 24.7-34.3 [facility] MCHC Auto (RBC) [Mass/Vol]Or dered By: Yayo Taylor on 10-03-2022 MCHC (RBC) [Mass/Vol] 34.0 g/dL 32.0-35.0 [facility] MCV Auto (RBC) [Entitic vol] Ordered By: Yayo Taylor on 10-03-2022 MCV (RBC) [Entitic vol] 86.4 fL 80-100 [facility] Monocytes Auto (Bld) [#/Vol] Ordered By: Yayo Taylor on 10-03-2022 Monocytes (Bld) [#/Vol] 0.5 10*3/uL 0.0-0.8 [facility] Monocytes/100 WBC Auto (Bld) Ordered By: Yayo Taylor on 10-03-2022 Monocytes/100 WBC (Bld) 7.3 % . [facility] Neutrophils Auto (Bld) [#/Vo l]Ordered By: Yayo Taylor on 10-03-2022 Neutrophils (Bld) [#/Vol] 4.1 10*3/uL 1.8-7.7 [facility] Neutrophils/100 WBC Auto (Bl d)Ordered By: Yayo Taylor on 10-03-2022 Neutrophils/100 WBC (Bld) 57.5 % . [facility] No Panel InformationOrdered By: Yayo Taylor on 10-03-2022 Estimated GFR (CKD-EPI) > 60.0 mL/Min [facility] Creatinine Clearance (Chem N/A [facility] Nucleated erythrocytes [Pres ence] in Blood by Automated countOrdered By: Yayo Taylor on 10-03-2022 Nucleated RBC Auto Ql (Bld) 0.3 /100{WBC} 0-0.5 [facility] Platelet mean volume Auto (B ld) [Entitic vol]Ordered By: Yayo Taylor on 10-03-2022 Platelet mean volume (Bld) [Entitic vol] 7.9 fL 6.3-10.7 [facility] Platelets Auto (Bld) [#/Vol] Ordered By: Yayo Taylor on 10-03-2022 Platelets (Bld) [#/Vol] 369 10*3/uL 150-450 [facility] Potassium [Moles/volume] in Serum or PlasmaOrdered By: Yayo Taylor on 10-03-2022 Potassium [Moles/Vol] 3.9 mmol/L 3.5-5.1 [facility] Protein [Mass/volume] in Ser um or PlasmaOrdered By: Yayo Taylor on 10-03-2022 Protein [Mass/Vol] 6.7 g/dL 6.4-8.9 [facility] RBC Auto (Bld) [#/Vol]Ordere d By: Yayo Taylor on 10-03-2022 RBC (Bld) [#/Vol] 4.20 10*6/uL 3.60-5.00 [facility] Serum or plasma albumin/glob ulin mass ratioOrdered By: Yayo Taylor on 10-03-2022 Albumin/Globulin [Mass ratio] 1.6 {ratio} [facility] Serum or plasma anion gap de terminationOrdered By: Yayo Taylor on 10-03-2022 Anion gap [Moles/Vol] 10.7 mmol/L 6.0-15.0 [facility] Sodium [Moles/volume] in Ser um or PlasmaOrdered By: Yayo Taylor on 10-03-2022 Sodium [Moles/Vol] 140 mmol/L 136-145 [facility] Urea nitrogen [Mass/volume] in Serum or PlasmaOrdered By: Yayo Taylor on 10-03-2022 Urea nitrogen [Mass/Vol] 20 mg/dL 7-25 [facility] WBC Auto (Bld) [#/Vol]Ordere d By: Yayo Taylor on 10-03-2022 WBC (Bld) [#/Vol] 7.1 10*3/uL 3.8-11.6 [facility] US BREAST RIGHT LIMITEDon US BREAST RIGHT LIMITED Patient: MONET JONES Exam Date: 08/18/2022 : 1970 Gender:F Ordering : TONI ROMERO CNP Admission #: [id number] Family : Order #: [id number] CLICK HERE TO VIEW EXAM RADIOLOGY REPORT [...] MD on 08/18/2022 at 09:07 Normal [facility] CBC AUTO DIFFon 06-07-2022 BASO # 0.0 103/ul Normal 0.0-0.1 [facility] Comment on above: Performed By: #### A ST, ALT, LIPID #### [facility] [address] [place] [address] Dr. Luis Daniel Sin Basophils/100 WBC (Bld) 0.4 % Normal 0.2-2.0 [facility] Comment on above: Performed By: #### A ST, ALT, LIPID #### [facility] [address] [place] [address] Dr. Luis Daniel Sin EO # 0.2 103/ul Normal 0.0-0.7 [facility] Comment on above: Performed By: #### A ST, ALT, LIPID #### [facility] [address] [address] [address] Luis Daniel Sin Eosinophils/100 WBC (Bld) 2.3 % Normal 0.9-7.0 [facility] Comment on above: Performed By: #### A ST, ALT, LIPID #### [facility] [address] [address] [address] Luis Daniel Sin Erythrocyte distribution width (RBC) [Ratio] 13.7 % Normal 11.0-15.0 [facility] Comment on above: Performed By: #### A ST, ALT, LIPID #### [facility] [address] [place] [address] Dr. Luis Daniel Sin Hematocrit (Bld) [Volume fraction] 37.3 % Normal 36.0-48.0 [facility] Comment on above: Performed By: #### A ST, ALT, LIPID #### [facility] [address] [address] [address] Luis Daniel Sin Hemoglobin (Bld) [Mass/Vol] 12.3 g/dL Normal 12.0-16.0 [facility] Comment on above: Performed By: #### A ST, ALT, LIPID #### [facility] [address] [place] [address] Dr. Luis Daniel Sin IG # 0.02 10e3/ul Normal 0.00-0.03 [facility] Comment on above: Performed By: #### A ST, ALT, LIPID #### [facility] [address] [place] [address] Dr. Luis Daniel Sin IG % 0.2 % Normal 0.0-0.5 [facility] Comment on above: Performed By: #### A ST, ALT, LIPID #### [facility] [address] [place] [address] Dr. Luis Daniel Sin LYMPH # 2.9 103/ul Normal 1.2-3.8 [facility] Comment on above: Performed By: #### A ST, ALT, LIPID #### [facility] [address] [place] [address] Dr. Luis Daniel Sin Lymphocytes/100 WBC (Bld) 31.8 % Normal 20.5-60.0 [facility] Comment on above: Performed By: #### A ST, ALT, LIPID #### [facility] [address] [place] [address] Dr. Luis Daniel Sin MANUAL DIFF REQ NO Normal [facility] Comment on above: Performed By: #### A ST, ALT, LIPID #### [facility] [address] [place] [address] Dr. Luis Daniel Sin MCH (RBC) [Entitic mass] 28.1 pg Normal 26.7-34.0 [facility] Comment on above: Performed By: #### A ST, ALT, LIPID #### [facility] [address] [place] [address] Dr. Luis Daniel Sin MCHC (RBC) [Mass/Vol] 33.0 g/dL Normal 29.9-35.2 [facility] Comment on above: Performed By: #### A ST, ALT, LIPID #### [facility] [address] [place] [address] Dr. Luis Daniel Sin MCV (RBC) [Entitic vol] 85.2 fL Normal 81.0-99.0 [facility] Comment on above: Performed By: #### A ST, ALT, LIPID #### [facility] [address] [place] [address] Dr. Luis Daniel Sin MONO # 0.8 103/ul Normal 0.3-0.8 [facility] Comment on above: Performed By: #### A ST, ALT, LIPID #### [facility] [address] [place] [address] Dr. Luis Daniel Sin Monocytes/100 WBC (Bld) 8.4 % Normal 1.7-12.0 [facility] Comment on above: Performed By: #### A ST, ALT, LIPID #### [facility] [address] [place] [address] Dr. Luis Daniel Sin NEUT # 5.1 103/ul Normal 1.4-6.5 [facility] Comment on above: Performed By: #### A ST, ALT, LIPID #### [facility] [address] [place] [address] Dr. Luis Daniel Sin Neutrophils/100 WBC (Bld) 56.9 % Normal 43.0-75.0 [facility] Comment on above: Performed By: #### A ST, ALT, LIPID #### [facility] [address] [place] [address] Dr. Luis Daniel Sin Platelet mean volume (Bld) [Entitic vol] 9.0 fL Critically low 9.5-13.5 [facility] Comment on above: Performed By: #### A ST, ALT, LIPID #### [facility] [address] [place] [address] Dr. Luis Daniel Sin PLT 353 103/ul Normal 150-450 [facility] Comment on above: Performed By: #### A ST, ALT, LIPID #### [facility] [address] [address] [address] Luis Daniel Sin RBC 4.38 106/ul Normal 4.20-5.40 [facility] Comment on above: Performed By: #### A ST, ALT, LIPID #### [facility] [address] [address] [address] Luis Daniel Sin WBC 9.0 103/ul Normal 4.0-11.0 [facility] Comment on above: Performed By: #### A ST, ALT, LIPID #### [facility] [address] [address] [address] Luis Daniel Sin PROF 14(COMP METB)on 022 Albumin [Mass/Vol] 3.9 g/dL Normal 3.4-5.0 [facility] Comment on above: Performed By: #### C MP #### [facility] [address] [place] [address] Dr. Luis Daniel Sin Albumin/Globulin [Mass ratio] 1.0 {ratio} Normal [facility] Comment on above: Performed By: #### C MP #### [facility] [address] [address] [address] Luis Daniel Sin ALP [Catalytic activity/Vol] 94 U/L Normal 46-116 [facility] Comment on above: Performed By: #### C MP #### [facility] [address] [place] [address] Dr. Luis Daniel Sin ALT [Catalytic activity/Vol] 18 U/L Normal 14-59 [facility] Comment on above: Performed By: #### C MP #### [facility] [address] [place] [address] Dr. Luis Daniel Sin Anion gap [Moles/Vol] 12.2 mmol/L Normal [facility] Comment on above: Performed By: #### C MP #### [facility] [address] [place] [address] Dr. Luis Daniel Sin AST [Catalytic activity/Vol] 19 U/L Normal 15-37 [facility] Comment on above: Performed By: #### C MP #### [facility] [address] [address] [address] Luis Daniel Sin Bilirubin [Mass/Vol] 0.3 mg/dL Normal 0.2-1.0 [facility] Comment on above: Performed By: #### C MP #### [facility] [address] [address] [address] Luis Daniel Sin Calcium [Mass/Vol] 9.3 mg/dL Normal 8.5-10.1 [facility] Comment on above: Performed By: #### C MP #### [facility] [address] [address] [address] Luis Daniel Sin Chloride [Moles/Vol] 102 mmol/L Normal 98-107 [facility] Comment on above: Performed By: #### C MP #### [facility] [address] [place] [address] Dr. Luis Daniel Sin CO2 [Moles/Vol] 29.5 mmol/L Normal 21.0-32.0 [facility] Comment on above: Performed By: #### C MP #### [facility] [address] [place] [address] Dr. Luis Daniel Sin Creatinine [Mass/Vol] 0.93 mg/dL Normal 0.55-1.02 [facility] Comment on above: Performed By: #### C MP #### [facility] [address] [place] [address] Dr. Luis Daniel Sin EGFR-AF BERMUDIAN >60 Normal >=60 [facility] Comment on above: Performed By: #### C MP #### [facility] [address] [place] [address] Dr. Luis Daniel Sin EGFR-NON AF BERMUDIAN >60 Normal >=60 [facility] Comment on above: Performed By: #### C MP #### [facility] [address] [place] [address] Dr. Luis Daniel Sin Globulin (S) [Mass/Vol] 3.8 g/dL Normal [facility] Comment on above: Performed By: #### C MP #### [facility] [address] [place] [address] Dr. Luis Daniel Sin Glucose [Mass/Vol] 100 mg/dL Normal 74-106 [facility] Comment on above: Performed By: #### C MP #### [facility] [address] [address] [address] Luis Daniel Sin Potassium [Moles/Vol] 3.7 mmol/L Normal 3.5-5.1 [facility] Comment on above: Performed By: #### C MP #### [facility] [address] [address] [address] Luis Daniel Sin Protein [Mass/Vol] 7.7 g/dL Normal 6.4-8.2 [facility] Comment on above: Performed By: #### C MP #### [facility] [address] [place] [address] Dr. Luis Daniel Sin Sodium [Moles/Vol] 140 mmol/L Normal 136-145 [facility] Comment on above: Performed By: #### C MP #### [facility] [address] [place] [address] Dr. Luis Daniel Sin Urea nitrogen [Mass/Vol] 18.0 mg/dL Normal 7.0-18.0 [facility] Comment on above: Performed By: #### C MP #### [facility] [address] [place] [address] Dr. Luis Daniel Sin Urea nitrogen/Creatinine [Mass ratio] 19.4 mg/mg Normal [facility] Comment on above: Performed By: #### C MP #### [facility] [address] [place] [address] Dr. Luis Daniel Sin SED RATE [facility] 2021 SED RATE 54 mm/hr Critically high <=30 [facility] Comment on above: Performed By: #### A ST, ALT, LIPID #### [facility] [address] [place] [address] Dr. Luis Daniel Sin CBC AUTO DIFFon 02-25-2022 BASO # 0.1 103/ul Normal 0.0-0.1 [facility] Comment on above: Performed By: #### C BC #### [facility] [address] [place] [address] Dr. Luis Daniel Sin Basophils/100 WBC (Bld) 0.7 % Normal 0.2-2.0 [facility] Comment on above: Performed By: #### C BC #### [facility] [address] [place] [address] Dr. Luis Daniel Sin EO # 0.2 103/ul Normal 0.0-0.7 [facility] Comment on above: Performed By: #### C BC #### [facility] [address] [place] [address] Dr. Luis Daniel Sin Eosinophils/100 WBC (Bld) 2.5 % Normal 0.9-7.0 [facility] Comment on above: Performed By: #### C BC #### [facility] [address] [place] [address] Dr. Luis Daniel Sin Erythrocyte distribution width (RBC) [Ratio] 14.2 % Normal 11.0-15.0 [facility] Comment on above: Performed By: #### C BC #### [facility] [address] [place] [address] Dr. Luis Daniel Sni Hematocrit (Bld) [Volume fraction] 41.1 % Normal 36.0-48.0 [facility] Comment on above: Performed By: #### C BC #### [facility] [address] [place] [address] Dr. Luis Daniel Sin Hemoglobin (Bld) [Mass/Vol] 13.5 g/dL Normal 12.0-16.0 [facility] Comment on above: Performed By: #### C BC #### [facility] [address] [place] [address] Dr. Luis Daniel Sin IG # 0.03 10e3/ul Normal 0.00-0.03 [facility] Comment on above: Performed By: #### C BC #### [facility] [address] [place] [address] Dr. Luis Daniel Sin IG % 0.4 % Normal 0.0-0.5 [facility] Comment on above: Performed By: #### C BC #### [facility] [address] [place] [address] Dr. Luis Daniel Sin LYMPH # 2.2 103/ul Normal 1.2-3.8 [facility] Comment on above: Performed By: #### C BC #### [facility] [address] [place] [address] Dr. Luis Daniel Sin Lymphocytes/100 WBC (Bld) 26.0 % Normal 20.5-60.0 [facility] Comment on above: Performed By: #### C BC #### [facility] [address] [place] [address] Dr. Luis Daniel Sin MANUAL DIFF REQ NO Normal [facility] Comment on above: Performed By: #### C BC #### [facility] [address] [place] [address] Dr. Luis Daniel Sin MCH (RBC) [Entitic mass] 28.6 pg Normal 26.7-34.0 [facility] Comment on above: Performed By: #### C BC #### [facility] [address] [place] [address] Dr. Luis Daniel Sin MCHC (RBC) [Mass/Vol] 32.8 g/dL Normal 29.9-35.2 [facility] Comment on above: Performed By: #### C BC #### [facility] [address] [place] [address] Dr. Luis Daniel Sin MCV (RBC) [Entitic vol] 87.1 fL Normal 81.0-99.0 [facility] Comment on above: Performed By: #### C BC #### [facility] [address] [place] [address] Dr. Luis Daniel Sin MONO # 0.6 103/ul Normal 0.3-0.8 [facility] Comment on above: Performed By: #### C BC #### [facility] [address] [place] [address] Dr. Luis Daniel Sin Monocytes/100 WBC (Bld) 6.8 % Normal 1.7-12.0 [facility] Comment on above: Performed By: #### C BC #### [facility] [address] [place] [address] Dr. Luis Daniel Sin NEUT # 5.3 103/ul Normal 1.4-6.5 [facility] Comment on above: Performed By: #### C BC #### [facility] [address] [place] [address] Dr. Luis Daniel Sin Neutrophils/100 WBC (Bld) 63.6 % Normal 43.0-75.0 [facility] Comment on above: Performed By: #### C BC #### [facility] [address] [place] [address] Dr. Luis Daniel Sin Platelet mean volume (Bld) [Entitic vol] 9.5 fL Normal 9.5-13.5 [facility] Comment on above: Performed By: #### C BC #### [facility] [address] [place] [address] Dr. Luis Daniel Sin PLT 364 103/ul Normal 150-450 [facility] Comment on above: Performed By: #### C BC #### [facility] [address] [place] [address] Dr. Luis Daniel Sin RBC 4.72 106/ul Normal 4.20-5.40 [facility] Comment on above: Performed By: #### C BC #### [facility] [address] [place] [address] Dr. Luis Daniel Sin WBC 8.3 103/ul Normal 4.0-11.0 [facility] Comment on above: Performed By: #### C BC #### [facility] [address] [place] [address] CHEST WO [...] TODD JACOBS Date: 2022-02-25 18:07 Normal [facility] PROF 14(COMP METB)on 022 Albumin [Mass/Vol] 3.6 g/dL Normal 3.4-5.0 [facility] Comment on above: Performed By: #### C MP #### [facility] [address] [place] [address] Dr. Luis Daniel Sin Albumin/Globulin [Mass ratio] 0.9 {ratio} Normal [facility] Comment on above: Performed By: #### C MP #### [facility] [address] [place] [address] Dr. Luis Daniel Sin ALP [Catalytic activity/Vol] 113 U/L Normal 46-116 [facility] Comment on above: Performed By: #### C MP #### [facility] [address] [place] [address] Dr. Luis Daniel Sin ALT [Catalytic activity/Vol] 17 U/L Normal 14-59 [facility] Comment on above: Performed By: #### C MP #### [facility] [address] [address] [address] Luis Daniel Sin Anion gap [Moles/Vol] 9.7 mmol/L Normal [facility] Comment on above: Performed By: #### C MP #### [facility] [address] [place] [address] Dr. Luis Daniel Sin AST [Catalytic activity/Vol] 11 U/L Critically low 15-37 [facility] Comment on above: Performed By: #### C MP #### [facility] [address] [address] [address] Luis Daniel Sin Bilirubin [Mass/Vol] 0.3 mg/dL Normal 0.2-1.0 [facility] Comment on above: Performed By: #### C MP #### [facility] [address] [address] [address] Luis Daniel Sin Calcium [Mass/Vol] 8.9 mg/dL Normal 8.5-10.1 [facility] Comment on above: Performed By: #### C MP #### [facility] [address] [address] [address] Luis Daniel Sin Chloride [Moles/Vol] 104 mmol/L Normal 98-107 [facility] Comment on above: Performed By: #### C MP #### [facility] [address] [place] [address] Dr. Luis Daniel Sin CO2 [Moles/Vol] 26.9 mmol/L Normal 21.0-32.0 [facility] Comment on above: Performed By: #### C MP #### [facility] [address] [place] [address] Dr. Luis Daniel Sin Creatinine [Mass/Vol] 0.96 mg/dL Normal 0.55-1.02 [facility] Comment on above: Performed By: #### C MP #### [facility] [address] [address] [address] Luis Daniel Sin EGFR-AF BERMUDIAN >60 Normal >=60 [facility] Comment on above: Performed By: #### C MP #### [facility] [address] [address] [address] Luis Daniel Sin EGFR-NON AF BERMUDIAN >60 Normal >=60 [facility] Comment on above: Performed By: #### C MP #### [facility] [address] [place] [address] Dr. Luis Daniel Sin Globulin (S) [Mass/Vol] 4.0 g/dL Normal [facility] Comment on above: Performed By: #### C MP #### [facility] [address] [address] [address] Luis Daniel Sin Glucose [Mass/Vol] 99 mg/dL Normal 74-106 [facility] Comment on above: Performed By: #### C MP #### [facility] [address] [address] [address] Luis Daniel Sin Potassium [Moles/Vol] 3.6 mmol/L Normal 3.5-5.1 [facility] Comment on above: Performed By: #### C MP #### [facility] [address] [address] [address] Luis Daniel Sin Protein [Mass/Vol] 7.6 g/dL Normal 6.4-8.2 [facility] Comment on above: Performed By: #### C MP #### [facility] [address] [address] [address] Luis Daniel Sin Sodium [Moles/Vol] 137 mmol/L Normal 136-145 [facility] Comment on above: Performed By: #### C MP #### [facility] [address] [address] [address] Luis Daniel Sin Urea nitrogen [Mass/Vol] 12.0 mg/dL Normal 7.0-18.0 [facility] Comment on above: Performed By: #### C MP #### [facility] [address] [address] [address] Luis Daniel Sin Urea nitrogen/Creatinine [Mass ratio] 12.5 mg/mg Normal [facility] Comment on above: Performed By: #### C MP #### [facility] [address] [address] Dr. Luis Daniel Sin SED RATE WESTERGRENon 2021 SED RATE 46 mm/hr Critically high <=20 [facility] Comment on above: Performed By: #### A ST, ALT, LIPID #### [facility] [address] [address] [address] Luis Daniel Sin LIPID PROFILEon 02-01-2022 CHOL-HDL RATIO NORM SEE BELOW Normal [facility] Comment on above: Result Comment: 3.3 - 4.4 LOW RISK 4.4 - 7.1 AVERAGE RISK 7.1 - 11.0 MODERATE RISK >11.0 HIGH RISK Performed By: #### A ST, ALT, LIPID #### [facility] [address] [address] [address] Luis Daniel Sin Cholesterol [Mass/Vol] 250 mg/dL Critically high <=200 [facility] Comment on above: Performed By: #### A ST, ALT, LIPID #### [facility] [address] [address] [address] Luis Daniel Sin Cholesterol in HDL [Mass/Vol] 44 mg/dL Normal 40-60 [facility] Comment on above: Performed By: #### A ST, ALT, LIPID #### [facility] [address] [address] [address] Luis Daniel Sin Cholesterol in LDL [Mass/Vol] 162.0 mg/dL Normal [facility] Comment on above: Performed By: #### A ST, ALT, LIPID #### [facility] [address] [address] [address] Luis Daniel Sin Cholesterol.total/Inna sterol in HDL [Mass ratio] 5.7 {ratio} Normal [facility] Comment on above: Performed By: #### A ST, ALT, LIPID #### [facility] [address] [address] [address] Luis Daniel Sin HDL NORMAL > or = 60 mg/dl - LOW CARDIOVASCULAR RISK <40 mg/dl - HIGH CARDIOVASCULAR RISK Normal [facility] Comment on above: Performed By: #### A ST, ALT, LIPID #### [facility] [address] [address] [address] Luis Daniel Sin LDL CALC NORMAL SEE BELOW Normal [facility] Comment on above: Result Comment: <100 mg/dl OPTIMAL 100 - 129 mg/dl NEAR OR ABOVE OPTIMAL 130 - 159 mg/dl BORDERLINE HIGH 160 - 189 mg/dl HIGH >190 mg/dl VERY HIGH Performed By: #### A ST, ALT, LIPID #### [facility] [address] [address] [address] Luis Daniel Sin Triglyceride [Mass/Vol] 220 mg/dL Critically high <=150 [facility] Comment on above: Performed By: #### A ST, ALT, LIPID #### [facility] [address] [place], [place] [address] Dr. Luis Daniel Sin VLDL CALC 44.0 mg/dL Normal [facility] Comment on above: Performed By: #### A ST, ALT, LIPID #### [facility] [address] [place], [place] [address] Dr. Luis Daniel Sin SGOTon 02-01-2022 AST [Catalytic activity/Vol] 17 U/L Normal 15-37 [facility] Comment on above: Performed By: #### A ST, ALT, LIPID #### [facility] [address] [place], [place] [address] Dr. Luis Daniel Sin SGPTon 02-01-2022 ALT [Catalytic activity/Vol] 21 U/L Normal 14-59 [facility] Comment on above: Performed By: #### A ST, ALT, LIPID #### [facility] [id number] Luis Daniel Sin Patient Correspondenceon Patient Correspondence [id number] [id number]#[id number]:127 Normal [facility] Provider Letteron 12-31-2021 Provider Letter December 31, 2021 MONET JONES N [address] [place] [address] MONET JONES N 1970 Dear Monet , This letter is to inform you the providers of [facility], [facility] will no longer be responsible for your routine medical care due to non compliance. Emergency care only will be provided for the thirty (30) days following this letter. During this time period we suggest that you find another physician for your medical needs. A listing of area physicians can be found on [facility]'s website at [email or web address] or you may contact your health plan. We will be glad to forward your records to your new physician as long as we receive a signed release of records form. Sincerely, Dr. Vickie Montiel MD [facility] [place] [address] Normal [facility] LIPID PROFILEon 12-13-2021 CHOL-HDL RATIO NORM SEE BELOW Normal [facility] Comment on above: Result Comment: 3.3 - 4.4 LOW RISK 4.4 - 7.1 AVERAGE RISK 7.1 - 11.0 MODERATE RISK >11.0 HIGH RISK Performed By: #### A ST, ALT, LIPID #### [facility] [address] [address] [address] Luis Daniel Sin Cholesterol [Mass/Vol] 233 mg/dL Critically high <=200 [facility] Comment on above: Performed By: #### A ST, ALT, LIPID #### [facility] [address] [address] [address] Luis Daniel Sin Cholesterol in HDL [Mass/Vol] 52 mg/dL Normal 40-60 [facility] Comment on above: Performed By: #### A ST, ALT, LIPID #### [facility] [address] [address] [address] Luis Daniel Sin Cholesterol in LDL [Mass/Vol] 142.6 mg/dL Normal [facility] Comment on above: Performed By: #### A ST, ALT, LIPID #### [facility] [address] [address] [address] Luis Daniel Sin Cholesterol.total/Inna sterol in HDL [Mass ratio] 4.5 {ratio} Normal [facility] Comment on above: Performed By: #### A ST, ALT, LIPID #### [facility] [address] [address] [address] Luis Daniel Sin HDL NORMAL > or = 60 mg/dl - LOW CARDIOVASCULAR RISK <40 mg/dl - HIGH CARDIOVASCULAR RISK Normal [facility] Comment on above: Performed By: #### A ST, ALT, LIPID #### [facility] [address] [address] [address] Luis Daniel Sin LDL CALC NORMAL SEE BELOW Normal [facility] Comment on above: Result Comment: <100 mg/dl OPTIMAL 100 - 129 mg/dl NEAR OR ABOVE OPTIMAL 130 - 159 mg/dl BORDERLINE HIGH 160 - 189 mg/dl HIGH >190 mg/dl VERY HIGH Performed By: #### A ST, ALT, LIPID #### [facility] [address] [address] [address] Luis Daniel Sin Triglyceride [Mass/Vol] 192 mg/dL Critically high <=150 [facility] Comment on above: Performed By: #### A ST, ALT, LIPID #### [facility] [address] [address] [address] Luis Daniel Sin VLDL CALC 38.4 mg/dL Normal [facility] Comment on above: Performed By: #### A ST, ALT, LIPID #### [facility] [address] [address] [address] Luis Daniel Sin SGOTon 12-13-2021 AST [Catalytic activity/Vol] 12 U/L Critically low 15-37 [facility] Comment on above: Performed By: #### A ST, ALT, LIPID #### [facility] [address] [address] [address] Luis Daniel Sin SGPTon 12-13-2021 ALT [Catalytic activity/Vol] 23 U/L Normal 14-59 [facility] Comment on above: Performed By: #### A ST, ALT, LIPID #### [facility] [address] [address] [address] Luis Daniel Sin Patient Correspondenceon Patient Correspondence [id number] [facility]#1.00CD:127 Normal [facility] Patient Letter FTon 2021 Patient Letter [facility] November 10, 2021 MONET JONES N [address] [place] [address] MONET JONES N 1970 Dear Monet, I am corresponding with [...] MD [facility] [address] [place] [address] [facility] Provider Letteron 10-19-2021 Provider Letter October 19, 2021 MONET JONES [address] [place] [address] MONET JONES 1970 Dear Jodi , During review of your medical record we noticed you missed your 09/27/21 Cystoscopy appointment. We have attempted to reach you on 09/28/21, 10/05/21, and 10/19/21 to reschedule your procedure with no success. Please call our office today to reschedule this appointment. Sincerely, Dr. Vickie Montiel MD [facility] [address] [place] [address] [facility] RAD - CT Reporton 09-21-[address] RAD - CT Report [id number] C54#1.00CD:127 [facility] Reminderson 09-21-2021 Reminders --- From: [...] CT Urogram --- From: Suzan Collins MA (EU - Prior Authorization) To: EU - Clinical; [...] urine for UA UA was sent to [facility] for micro. I don't see the results in the pt's chart. But when they do get in chart, GURU needs to review them. Scratch that. They were sent to [facility]. Will forward to GURU. [facility] Coding Summary.on 09-17-2021 Coding Summary. CD:[id number]+PGhlYWQ+P O3UKZMxF39ueWTpyA8 KT6mWEK6BMVIXRCIME G9ZFO8jzOF4YRyiE1V ybiAv XbgaqPQzMD78GTm3QJ Z3cEbtVLmyrY9hzDFq V6l1XwRnEL81eQ93NW gySENbIxV3EaVuzdca bWFy X0oeFzRikRZlIan+PH RhYmxlIHdpZHRoPScx GTXsKbPacImuDL5oIj 9yZGVyLWNvbGxhcHNl OiBj k2naSLQeHPshWL0pwK juY0VbnRI9WTMmz4w6 Tr71oZV+DHIlETC3hP ftTPxri357EuMvz2dt IDM3 cQSuNNmjEUM5W09lr6 P0VVLbPJEtFFU8sZG7 pS9wqNqnigbuZ0StdK QyVkS4RHR6ePBvbL9h bGln lzqdyI3kIfu+Q09ESU 4BBDBCAS2ORof9T0Cr PjwvdHI+DV27IGKcSS 37wXFyzJTew4zknHx3 JzEw SARuLLD1qWefZWyyb9 KjXJQsV43ntDPwd2G2 IGNvbGxhcHNlOyBlbX M5cE8gDXgofpicn9pd dzsn Zloan8vvyq84nW69U5 7uECqdQQCzCVZ1FKRu MMGkdMbphm0fkN7lBi 8+VFeva3llp2eijGd2 IjIw WXHrbgFrsXaqTPV9u7 TeFr47F9IsgQqqf1Mt Weg4wg86cOPoq0A2iV M0YLujTIGevS6pMMkq ZnQ6 FHYuJpYofU28cERiDL oaYf2cxDkssLyuWW9g CQFlcgeeSGQsoV4zTY ZiuCTyeHcmUL4iLVAs bjtm t527MdFtVNF5RMDfjH FgI1UyhV8zKyYiOSUk XWPyD0YelLFyQHquA0 96GJklDnG6MGTkqmGd Y2Fs IVWytRedYhA7u8P3Gq 3Oo8TrqfueKKI0DEcy GZRlInIoLmVvTqM2L4 KbKrn2COAywHzxRQ2x J3Bh QJXzwbxorfauwCS8VZ CaOWHpzO16kKYcQQqm Cw6sc8R7b546PMZaFK RgyJ93Fm6hiNxeANJd dCBU rB6kukhgy2bkftrpBd UkAZBfGCr7HRc6SDJo xXzjBuMnYXM3GmZ6IU U6rADcpL2dbNlmhvfs dG9w Oyc+V82piM2lZGN4BV Z1qptnOOVkhkCjZT49 EN27W4DlPjjywIZxuB U+QUQmufIczGjaBP9m YmFj n1ixx7ItIOtiH0DiHT BbDMxuSbw7LHVcCAW2 kPN6lU9sHWJyEBuqc3 J4jPD3J8MykoLsbl5w b2xs SJJdZLpnY86ioIOrt1 N6SQMyjHD7RZVwtOrg XpSgkL20Aci+PGNvbG vcx3IpMewuw6zur3si dGg9 IjMwJSIgdmFsaWduPS A6k6FbWg25N33gNEif ZHRoPSIxNSUiIHZhbG zqbz5myM1sVh8+PGNv bCB3 tVR7vI9sNLPwGiN9NL qtY205EbJegYEaNfbs k3ydm7mokRa9EeLuHE GjadLtrKiiYWO1y6Oo Lz48 W48zSTdhGINeRBLlWF RrDZFjwApiah2szS1j Ii8+ME3nd5wpdf64rX 48dHI+SCJlYEV5dWmk PSdw PHMaiS0cSHvhArS8YL JoUbRygS91pGNfHAtz Zq6fnJxafGilCF1nYI Cxobwsr206TcYlm5av IDEw dZJsYAvaTLP2Q21qb8 S9DFDfBVMaWLW6jWJ2 zS8vjUurqaapiEJrgV sgdmVydGljYWwtYWxp Z246 IHRvcDsnPlBhdGllbn ClZwDeLOb2D6YiHgc1 DIAfeJofLY8szMOiIK qxEl0jnJnfaBxjJX2b NTBp yogxy250BlHvb4yvXL OddAOpKXaaMEN8X40f p4Z5NCRaVQFnLTQ5zW O5mD2snQhumoiziSWt dDsg dmVydGljYWwtYWxpZ2 46IHRvcDsnPkJpcnRo ZVNdfXR3LF67QX34mG Pdm8B2zNW0Z8PhOVLw bmct resofCD3DZVcJHZdjR 20Pg7dsCadMv6fVBVq SJA8NFIzsJZqA7WnfR 8fEoTmRVEoFJYjM8Ki eHQt QCyrP993CCzpKrF9HL DanqAkC3GkVDMhnSkw HqA2m6J5Nv0QG1O4LN 27CJ66aTUyh5L7sHG9 J3Bh XGVkrwjgltrdoJD2OF RmUYXidW61Ia4qsRkd Dw1gERFtXMA9VFAanC QgB3YzxB1dBuDrUYVt MDAw E7RavCHyWTbuQ403GN jxCbI1IXZvvnQoC3Ad JVVwzCwsPzP7q1U6Ep 8GVGa2NG78DD86dWEs c3R5 eXZ3P2UfAKWzydunxt sxlJU7JHOeGCHosI51 Yb0jtPuyGu4iVSClQN N7QQAjtTFtB6AtpU8n OiAj INZxTTMqB8SmuNDoXW ajP001VHmsWjS6RVWx rzLmQ8BaXIMetNvvNr W2d5H2Sq7ZWFFjDP89 IFR5 fEX7XA82CT03L8TpEj wvdGFibGU+PHRhYmxl IHdpZHRoPScxMDAlJy VqnQqpGI5sGe0oBCYo LWNv zMmcnBGlJuXfx9vjHB SiDUhlHS5naQfwH0Xs pCS2DETsd2v9Ny69O7 1aE3VubUQ+PGNvbCB3 aWR0 zF5lRrQqJnG1UFciV9 67KlXmtJGoPmwqk8sn x1mcjDd5FeN9PWHorg NpcTwcUZS0o5QoQp85 Y29s IHdpZHRoPSIxNSUiIH UxtKrufq0xaE7qSp1+ MMBvmCF5hSF1gG3jVg UqEyC0QEcrS516KnGc cCIv Uqbcn5jxj7bhiMg6Fe IwJSIgdmFsaWduPSJ0 z8IcTp84T4XqsDdbg9 DjVls5my43mCCon1L1 bGU9 I9YlDTAhmjkzrQQsmH rjAH1cJGIyumfcPWIv rO9yHUTgZ5i8ImPuGz P6JKftZ2VdgyX5UWIn cHQg KLtpXOU0P37ix7E2FH QrTAKcMWN9eHA4kH6i bGlnbjogbGVmdDsgdm WidKorBTqeTHdhF945 IHRv xGusUPXniE8cXCXqqN OasWxpNE6jILDxfllx GrfQUeKEMWTEC9OAGF dXNZ61S7PgIxa6LPSu dHls NS4ceHLgWDsjSm4iaY ojwLdiQI2cSMHcldrv LHQglV1iFXVnnPSxqJ uhXI1xZXWauhnue173 OiAx KRU0AEKymDXrH0DdtV 1pXjGiBWGwFXKgI9Ll lHPuFFkgD563CAnuKk K2GIZaunIgB1IuIVWz aWdu ImX7z4Z6Qi3zMl3eLa 1fWFigTH20MM05bGMx f1A3oIT0Q9OlSIJpog atknlpfET7OZWqDYWs aW47 bXLpOWasOb0iw6U5m5 54HRQrFGKjhE50Lz8a vSpsHBDatVRMtK7ncj sbr3ahvybhHrXyMYTm MDt0 HUf8DRAjgPmwThIyEF M4DqW5RIK3zHYaxU1z vRrapecdxD6bFgz+ND xqYLSyyvB6F6JvAgr7 ZCBz wMziQR0grKVcJIcdPw 5fdRuyrZxdHV8kHNLt suraZFUyiE6tSPQmoX SvdGrgUQ4wKNZvbnjd b250 ZiZiPVK1IGGwoPKvC5 OntG7oFgEnFFSkMDEy Q3JcrZZkJOpiE067YV rgAoM2SYYqkzRxK1Ln LWFs vCfwEyD7b3Q2Oi2MOM 7hdIF4H5CbJsu9ATBl gPwpLS2aeHLgZKamKb 7uePwnxKgrBR8zXYBy bjtw FUHcsJ5vXJSqfMAceE jbPR2kHXHgadxst887 SyNzHRK5OZJrfGKzT0 XuxL1pGcUdTBFcESVo O3Rl aXMlSEssK818YEquTp B2ULZiqhDsH6LcAZTu mFwcCwE7u8R3Ce7TYA CpJRIbcUXtYqR0V6Qn Pjwv dHI+UM62XGHcCR53xE EjhRXge8xwiTj2RcXi GYHkWZA7bJbaUUdta3 BhJXCfG52kxJTac8Y4 IGNv jTxwyGWbAtQikGC3pZ 2qQNmtadpjs0anzxjk Rirts1osdd02vI86V4 9sIHdpZHRoPSIzMCUi IHZh iObeip7ksG3lQa9+PG TcrYQ0nYJ1kY6eJtUa VgP4QAmoI963UdZbwL RcBploa4wws6wgjGv5 IjIw MGJypeLseGwfJIW6v8 OaIl37P24lASpoDHUk PSIyMCUiIHZhbGlnbj 4vuY0oMe3+PN2xh5hp cm91 gR05bPT+HVVuTXL6zL pgMJorUOMbgJ4uNInt BaL4YCPuQqWncS60zK SzBSaiXu3ynZbdgXfa MC4w PEIlftseu697VkBjx9 xkIDEwcHQgVGltZXM7 Y75mg1G5TNVoNRXtFJ K6gDT0bZ0xaSvxooaw bGVm dDsgdmVydGljYWwtYW rnM782HDJuwAkuDnFj kBGtW0uvzsMEMH3aQn wvdGQ+CRZtBGW1zQfe PSdw XSYudP0yMWMqM0u0Bw FwGdY7YVonA8LwydK7 IGJvbGQgMTBwdCBUaW 9putxcb6wvmconDpAu MDAw BGs4WIi8JYIuxImfJr IpWVU3BeR0ZER7mKLg oD2smDlcsetjjP7yEi c+RklOOjwvdGQ+PHRk IHN0 lGqaPGyzSVDcqO5iOO EvL8h1QiYtAsM1WJgl S0JnzrD9ERCriRHlYY JtrNLXwO1xkevsg7kp cjog NcSuJVHpSCl4KKu0JK XeyCjePfIkJZK2FxA4 GOY2xVBywM1teQwjlu zalC3wFws+TVJOOjwv dGQ+ YTBuELI9kLrqPFisPB YrmZ3bNHInC2f4XsJw JvP2IIjdY0YmugP6HP HdwKAvKPCzwBBQuI9p cztj m2zyrrsvRbYkFQLlME r7UZf7JILrbVpqFwYp UAR4LsS7WEI1jAJpdY 3ywAdyeagoeT2pYdd+ UGF5 BSY2CQ02AT93G0WuVb wvdGFibGU+PHRhYmxl IHdpZHRoPScxMDAlJy OcrZdtGV2sSo0jQFKq LWNv bGxh (more content not included)... Normal [facility] Physician Referralon 022 Physician Referral [id number]#[id number]:127 Normal [facility] Pre-Certification Formon Pre-Certification Form [id number]#1.00CD:127 Normal [facility] Patient Educationon 09-16-19 22 Patient Education [...] these instructions at home: Medicines ? Take hwkp-smb-knmoylh and prescription medicines only as told by [...] the blood stops without treatment. ? Take szcu-ppc-crlprqk and prescription medicines only as told by your health care provider. ? Drink enough fluid to keep your urine clear or pale yellow. This information is not intended to replace advice given to you by your health care provider. Make sure you discuss any questions you have with your health care provider. Document Released: 06/05/2006 Document Revised: 10/30/2019 Document Reviewed: 07/08/2017 Elsevier Patient Education ? 2019 [employer] Normal [facility] RAD - CT Reporton 09-15-[address] RAD - CT Report [id number]#[id number]:127 Normal [facility] URINALYSISOrdered By: Shahla buckner on 09-15-2021 [...] PM) Normal Negative [facility] UA Auto SS Brodnax.plasma/Brodnax. RBC (Bld) [Mass ratio] 0-3 /HPF Normal 0-3/HPF [facility] UA A uto SS Mucus Ql (Urine sed) Trace (09/15/21 12:36 PM) Normal [facility] UA Auto SS Nitrite Ql (U) Negative (09/15/21 12:36 PM) Normal Negative [facility] UA Auto SS pH (U) 5.5 *NA* (09/15/21 12:36 PM) Invalid Interpretation Code 5.0 - 9.0 [facility] UA Auto SS Protein (U) [Mass/Vol] Negative (09/15/21 12:36 PM) Normal Negative [facility] UA Auto SS Specific gravity (U) [Rel density] 1.025 *NA* (09/15/21 12:36 PM) Invalid Interpretation Code 1.005 - 1.030 [facility] UA Auto SS UA Spec Desc Clean Catch (09/15/21 12:36 PM) Normal [facility] UA Auto SS Urobilinogen Qn (U) 0.0851960 {Edelmira'U}/dL Normal 0.0 - 1.0 EU/dL [facility] UA Auto SS WBC Auto Ql (U) Negative (09/15/21 12:36 PM) Normal Negative [facility] UA Auto SS WBC LM.HPF (Urine sed) [#/Area] 0-5 /HPF Normal 0-5/HPF [facility] UA Auto SS Urinalysison 09-15-2021 Bilirubin Ql (U) 2+ Abnormal Negative [facility] Comment on above: Performed By: #### 1 [id number] #### [facility] [address] [place] [address] Calcium oxalate crystals LM Ql (Urine sed) Present Normal [facility] Comment on above: Performed By: #### 1 [id number] #### [facility] [address] [place] [address] Clarity (U) CLEAR Normal Clear [facility] Comment on above: Performed By: #### 1 [id number] #### [facility] [address] [place] [address] Color (U) YELLOW Normal Yellow [facility] Comment on above: Performed By: #### 1 [id number] #### [facility] [address] [place] [address] Epithelial cells.squamous LM.HPF (Urine sed) [#/Area] 0-2 Normal 0-2 [facility] Comment on above: Performed By: #### 1 [id number] #### [facility] [address] [place] [address] Glucose Test strip (U) [Mass/Vol] Negative Normal Negative [facility] Comment on above: Performed By: #### 1 [id number] #### [facility] [address] [place] [address] Hemoglobin Ql (U) 3+ Abnormal Negative [facility] Comment on above: Performed By: #### 1 [id number] #### [facility] [address] [place] [address] Ketones (U) [Mass/Vol] Negative Normal Negative [facility] Comment on above: Performed By: #### 1 [id number] #### [facility] [address] [place] [address] Brodnax.plasma/Brodnax. RBC (Bld) [Mass ratio] 0-3 Normal 0-3 [facility] Comment on above: Performed By: #### 1 [id number] #### [facility] [address] [place] [address] Mucus Ql (Urine sed) TRACE Normal [facility] Comment on above: Performed By: #### 1 [id number] #### [facility] [address] [place] [address] Nitrite Ql (U) Negative Normal Negative [facility] Comment on above: Performed By: #### 1 [id number] #### [facility] [address] [place] [address] pH (U) 5.5 [pH] Invalid Interpretation Code 5.0-9.0 [facility] Comment on above: Performed By: #### 1 [id number] #### [facility] [address] [place] [address] Protein (U) [Mass/Vol] Negative Normal Negative [facility] Comment on above: Performed By: #### 1 [id number] #### [facility] [address] [place] [address] Specific gravity (U) [Rel density] 1.025 Invalid Interpretation Code 1.005-1.030 [facility] Comment on above: Performed By: #### 1 [id number] #### [facility] [address] [place] [address] Type of Urine collection method Clean Catch Normal [facility] Comment on above: Performed By: #### 1 [id number] #### [facility] [address] [place] [address] Urobilinogen Qn (U) 0.2 {Edelmira'U}/dL Normal 0.0-1.0 [facility] Comment on above: Performed By: #### 1 [id number] #### [facility] [address] [place] [address] WBC Auto Ql (U) Negative Normal Negative [facility] Comment on above: Performed By: #### 1 [id number] #### [facility] [address] [place] [address] WBC LM.HPF (Urine sed) [#/Area] 0-5 Normal 0-5 [facility] Comment on above: Performed By: #### 1 [id number] #### [facility] [address] [place] [address] CHEST W CONon 09-07-2021 CT CHEST [...] nonspecific, of doubtful clinical significance Normal [facility] AXADO Quick Testingon 2020 Result Negative [employer] Other Vital Signs Date Time Vital Sign Value Performing Clinician Facility 03-25-2024 14:39-0400 Body height 170.2 cm Shandra Heather BILLING DEPARTMENT SUPERVISOR Work Phone: [facility] 03-25-2024 14:39-0400 Body mass index (BMI) [Ratio] 31.48 kg/m2 Shandra Heather BILLING DEPARTMENT SUPERVISOR Work Phone: [facility] 03-25-2024 14:39-0400 Body temperature 98.49 [degF] Shandra Heather BILLING DEPARTMENT SUPERVISOR Work Phone: [facility] 03-25-2024 14:39-0400 Body weight 91.17 kg Shandra Heather BILLING DEPARTMENT SUPERVISOR Work Phone: [facility] 03-25-2024 14:39-0400 Diastolic blood pressure 78 mm[Hg] Shandra Heather BILLING DEPARTMENT SUPERVISOR Work Phone: [facility] 03-25-2024 14:39-0400 Heart rate 84 /min Shandra Heather BILLING DEPARTMENT SUPERVISOR Work Phone: [facility] 03-25-2024 14:39-0400 Respiratory rate 19 /min Shandra Joneholz BILLING DEPARTMENT SUPERVISOR Work Phone: [facility] 03-25-2024 14:39-0400 SaO2% (BldA) [Mass fraction] 98 % Shandra Bartolohholz BILLING DEPARTMENT SUPERVISOR Work Phone: [facility] 03-25-2024 14:39-0400 Systolic blood pressure 112 mm[Hg] Shandra Aichholz BILLING DEPARTMENT SUPERVISOR Work Phone: [facility] 03-07-2024 10:45-0400 Body height 170.2 cm Shandra Aichholz BILLING DEPARTMENT SUPERVISOR Work Phone: [facility] 03-07-2024 10:45-0400 Body mass index (BMI) [Ratio] 31.83 kg/m2 Shandra Aichholz BILLING DEPARTMENT SUPERVISOR Work Phone: [facility] 03-07-2024 10:45-0400 Body temperature 98.49 [degF] Shandra Bartolohholz BILLING DEPARTMENT SUPERVISOR Work Phone: [facility] 03-07-2024 10:45-0400 Body weight 92.17 kg Shandra Aichholz BILLING DEPARTMENT SUPERVISOR Work Phone: [facility] 03-07-2024 10:45-0400 Diastolic blood pressure 66 mm[Hg] Shandra Bartolohholz BILLING DEPARTMENT SUPERVISOR Work Phone: [facility] 03-07-2024 10:45-0400 Heart rate 73 /min Shandra Aichholz BILLING DEPARTMENT SUPERVISOR Work Phone: [facility] 03-07-2024 10:45-0400 Respiratory rate 19 /min Shandra Aichholz BILLING DEPARTMENT SUPERVISOR Work Phone: [facility] 03-07-2024 10:45-0400 SaO2% (BldA) [Mass fraction] 93 % Shandra Bartolohholz BILLING DEPARTMENT SUPERVISOR Work Phone: [facility] 03-07-2024 10:45-0400 Systolic blood pressure 118 mm[Hg] Shandra Aichholz BILLING DEPARTMENT SUPERVISOR Work Phone: [facility] 09-15-2021 08:30-0400 Blood Pressure Location Vickie Lue [facility] 09-15-2021 08:30-0400 Diastolic blood pressure 80 mm[Hg] Vickie Lue [facility] 09-15-2021 08:30-0400 Systolic blood pressure 124 mm[Hg] Vickie Lue [facility] [employer] 04-14-2021 20:30-0400 Body height 170.18 cm Cecy Chiang Other [employer] Other 04-14-2021 20:30-0400 Body mass index (BMI) [Ratio] 32.1 kg/m2 Cecy Chiang Other [employer] Other 04-14-2021 20:30-0400 Body temperature 97.5 [degF] Cecy Chiang Other [employer] Other 04-14-2021 20:30-0400 Body weight 92.99 kg Cecy Chiang Other [employer] Other 04-14-2021 20:30-0400 Respiratory rate 18 /min Cecy Chiang Other [employer] Other 04-14-2021 20:30-0400 SaO2% (BldA) [Mass fraction] 96 % Cecy Chiang Other [employer] Other Encounters Encounter Date Encounter Type Care Provider Facility Start: 03-25-2024 End: 03-25-2024 Office outpatient visit 15 minutes Shandra Aichholz BILLING DEPARTMENT SUPERVISOR Work Phone: [facility] Comment on above: Peritonsillar absces s (Primary Dx); Obesity due to excess calories without serious comorbidity, unspecified class; Current smoker; Colon cancer screening; Rheumatoid arthritis of multiple sites with negative rheumatoid factor (CMS/HCC); Encounter for screening mammogram for malignant neoplasm of breast Start: 03-25-2024 End: 03-25-2024 Bamboo flowsheet Shandra Aichholz BILLING DEPARTMENT SUPERVISOR Work Phone: [facility] Start: 03-25-2024 End: 03-25-2024 Bamboo flowsheet Shandra Aichholz BILLING DEPARTMENT SUPERVISOR Work Phone: [facility] Start: 03-25-2024 End: 03-25-2024 ambulatory SHANDRA AICHHOLZ Not Available Start: 03-07-2024 End: 03-07-2024 Bamboo flowsheet Shandra Aichholz BILLING DEPARTMENT SUPERVISOR Work Phone: [facility] Start: 03-07-2024 End: 03-07-2024 Bamboo flowsheet Shandra Aichholz BILLING DEPARTMENT SUPERVISOR Work Phone: [facility] Start: 03-07-2024 End: 03-07-2024 Office outpatient visit 25 minutes Shandra Aichholz BILLING DEPARTMENT SUPERVISOR Work Phone: [facility] Comment on above: Peritonsillar absces s (Primary Dx); Encounter for screening mammogram for malignant neoplasm of breast; Immunocompromised state due to drug therapy (CMS/HCC); Rheumatoid arthritis of multiple sites with negative rheumatoid factor (CMS/HCC) Start: 03-07-2024 End: 03-07-2024 ambulatory SHANDRA AICHHOLZ Not Available Start: 03-02-2024 End: 03-03-2024 ambulatory MAURO Zion RUBIOKO [facility] Start: 12-11-2023 End: 12-11-2023 ambulatory SHANDRA AICHHOLZ Not Available Start: 09-07-2023 End: 09-07-2023 ambulatory SHANDRA AICHHOLZ Not Available Start: 12-06-2022 End: 12-06-2022 ambulatory Kendra Renteriabrianacameron Facility:[facility] Start: 12-06-2022 End: 12-06-2022 ambulatory Shandra Delia Kooz Work Phone: [facility] Work Phone: Start: 12-06-2022 End: 12-06-2022 Patient encounter procedure Shandra Joneholz Work Phone: [facility] [address] Work Phone: Start: 10-03-2022 End: 10-03-2022 ambulatory Cecil Taylor Facility:[facility] Start: 10-03-2022 End: 10-03-2022 ambulatory Shandra Delia Aichholz Work Phone: [facility] Work Phone: Start: 10-03-2022 End: 10-03-2022 Patient encounter procedure Shandrakathya Kooz Work Phone: [facility] [address] Work Phone: Start: 08-18-2022 End: 08-19-2022 ambulatory [employer] SHANDRA AICHHOLZ Facility:[facility] Start: 06-07-2022 End: 06-08-[address] DOCTOR WELCH Facility:[facility] Start: 02-25-2022 End: 02-26-2022 ambulatory IN[employer] SHANDRA AICHHOLZ Facility:[facility] Start: 02-01-2022 End: 02-02-2022 ambulatory INSTRUCTOR [employer] SHANDRA AICHHOLZ Facility:[facility] Start: 12-13-2021 End: 12-14-2021 ambulatory INSTRUCTOR [employer] SHANDRA AICHHOLZ Facility:[facility] Start: 09-15-2021 End: 09-15-2021 Lab Drop off Vickie Montiel [facility] Start: 09-15-2021 End: 09-15-2021 Patient encounter procedure Vickie Montiel [facility] Start: 09-06-2021 End: 09-07-2021 ambulatory INSTRUCTOR [employer]ENCE SHANDRA ROMERO Facility:[facility] Start: 04-14-2021 End: 04-14-2021 ambulatory Cecy Chiang Other [employer] Other Start: 04-14-2021 Office outpatient vi sit 15 minutes Cecy Chiang [facility] Procedures Date Procedure Procedure Detail Performing Clinician Start: 03-22-2023 Mammography Shandra morris BILLING DEPARTMENT SUPERVISOR Work Phone: Start: 06-19-2016 Hysterectomy Vickie Montiel Start: 12-31-2015 Microscopic observat ion [Identifier] in Cervix by Cyto stain Shandra Romero BILLING DEPARTMENT SUPERVISOR Work Phone: Plan of Treatment Date Care Activity Detail Author Start: 06-26-2024 End: 06-26-2024 Patient encounter procedure 06/26/2024 6:00 PM EST Office Visit [facility] [address] [place] [address] Shandra Romero, DEENA [address] [place] [address] [facility] Start: 04-06-2024 End: 05-07-2025 MG Breast - bilateral Screening Bilateral screening mammogram Imaging Routine Encounter for screening mammogram for malignant neoplasm of breast Expected: 04/06/2024 (Approximate), Expires: 05/07/2025 [facility] Work Phone: Comment on above: Expected: 04/06/2024 (Approximate), Expires: 05/07/2025 Start: 03-25-2024 End: 03-25-2024 Patient encounter procedure [facility] Comment on above: Arrived Start: 03-22-2024 Screening for malignant neoplasm of breast Mammogram [facility] Start: 03-12-2024 End: 03-12-2024 Patient encounter procedure 03/12/2024 3:40 PM EDT Office Visit [facility] [address] [place] [id number] Shandra Romero NP [address] [place] [phone] [facility] Start: 03-07-2024 End: 03-07-2024 Patient encounter procedure 03/07/2024 11:00 AM EDT Office Visit [facility] [address] [place] [id number] Shandra Romero NP [address] [place] [phone] Encounter for screening mammogram for malignant neoplasm of breast (Primary Dx) [facility] Comment on above: Encounter for screen ing mammogram for malignant neoplasm of breast (Primary Dx) Start: 12-30-2018 Screening for malignant neoplasm of cervix Pap Smear [facility] Start: 2002 Screening for malignant neoplasm of cervix HPV/Cotest [facility] Start: 1972 Screening for malignant neoplasm of colon [facility] Immunizations Immunization Date Immunization Notes Care Provider Fa cility 04-12-2019 hepatitis B vaccine, adult dosage Shandra Romero BILLING DEPARTMENT SUPERVISOR Work Phone: [facility] 04-12-2019 tetanus toxoid, reduced diphtheria toxoid, and acellular pertussis vaccine, adsorbed Shandra Romero BILLING DEPARTMENT SUPERVISOR Work Phone: [facility] NEGATED: Highlighted row has not occurred!09-15-2021 SARS-CoV-2 (COVID-19) Ad26 vaccine, recombinant Vickie Montiel [facility] Payers Date Payer Category Payer Self-pay [id number] 2019 Unknown BCBS BCBS xxxxxx [id number] 2019-Present [phone] [address] [place] [address] [id number] 1972 Unknown [id number] [id number]. 593 1972 Unknown [id number] 2.16.840.1.005239.3.579.2. 593 1972 Unknown [id number] 2.16.840.1.069612.3.579.2. 593 1972 Unknown [id number] 2.16.840.1.940117.3.579.2. 593 1972 Unknown [id number] 2.16.840.1.810532.3.579.2. 593 1972 Unknown [id number] 2.16.840.1.592186.3.579.2. 593 1972 Unknown [id number] 2.16.840.1.024758.3.579.2. 593 1972 Unknown [id number] 2.16.840.1.421344.3.579.2. 593 1972 Unknown [id number] 2.16.840.1.928636.3.579.2. 1259 1972 Unknown [id number] 2.16.840.1.922923.3.579.2. 1259 1972 Unknown [id number] 2.16.840.1.011595.3.579.2. 1259 1972 Unknown [id number] 2.16.840.1.153665.3.579.2. 1259 1959 Blue Cross Blue Shield HUM [id number] [id number] Unknown [id number] 2.16.840.1.790767.3.579.2. 531 Unknown [id number] 2.16.840.1.978016.3.579.2. 531 Social History Date Type Detail Facility Start: 09-15-2021 Tobacco smoking status Heavy tobacco smoker (finding) [facility] [employer] Other Start: 09-07-2023 End: 12-11-2023 Sex Assigned At Female [facility] [employer] Other Start: 1970 Sex Assigned At Female [facility] Start: 09-07-2023 Tobacco smoking status NHIS Smokes tobacco daily [facility] History of tobacco use Cigarette Smoker [facility] Start: 09-07-2023 End: 12-11-2023 Cigarettes smoked current (pack per day) - Reported 1 [facility] Start: 09-07-2023 Tobacco use and exposure User of smokeless tobacco [facility] Start: 12-11-2023 End: 03-07-2024 Alcoholic beverage intake Current drinker of alcohol (finding) [facility] How often do you att end gnosticism or mosque services? Patient declined [facility] Do you belong to any clubs or organizations such as gnosticism groups, unions, fraternal or athletic groups, or school groups? No [facility] Are you now , , , , never or living with a partner? [facility] How many standard dr inks containing alcohol do you have on a typical day? 3 or 4 [facility] Do you feel stress - tense, restless, nervous, or anxious, or unable to sleep at night because your mind is troubled all the time - these days [OSQ] Rather much [facility] In the past 12 month s, was there a time when you were not able to pay the mortgage or rent on time? Yes [facility] Start: 09-07-2023 Alcohol Comment Couple times a month [facility] Start: 1970 Sex assigned at Not on file [facility] Medical Equipment Procedure Code Equipment Code Equipment Origin al Text Equipment Identifier Dates USE DIRECTED Start: 04-04-2023 Clinical Notes 04-14-2021 to 03-25-2024 Shandra Romero NP - 03/25/2024 3:01 PM Jaskaran Romero NP - 03/25/2024 3:00 PM Jaskaran Romero NP - 03/25/2024 3:00 PM Jaskaran Romero NP - 03/25/2024 3:00 PM EDT Note Date & Type Note Facility 03-25-2024 History of Present illness Narrative Associated Problem(s): Encounter for screening mammogram for malignant neoplasm of breast Has not had her mammogram as of yet, states she did not get a call from [facility] I gave her a copy of order with scheduling number Associated Problem(s): Rheumatoid arthritis of multiple sites with negative rheumatoid factor (CMS/HCC) Cont with Rheumatology Associated Problem(s): Peritonsillar abscess Sxs have resolved and she is encouraged to have fu with ENT Associated Problem(s): Colon cancer screening Still has not got done her cologard, reminded her to do Images from the original note were not included. Monet Jones is a 53 y.o. female presents with chief complaint of No chief complaint on file. HPI: Fu from peritonsilar abscess.. overall she is doing well, no fever, chills, no sore throat. She did not go see her ENT Her RA: is at baseline as well SUBJECTIVE: MEDICATIONS: Current Outpatient Medications Medication Instructions acetaminophen (Tylenol 8 Hour) 650 MG ER tablet Every 8 hours albuterol HFA 90 mcg/act inhaler 2 puffs, Inhalation, Every 6 hours PRN amitriptyline (ELAVIL) 25 mg, Oral, Nightly atorvastatin (LIPITOR) 40 mg, Oral, Nightly BD Insulin Syringe U/F 31G X /16 1 ML misc USE DIRECTED cetirizine (ZYRTEC) 10 mg, Oral, Daily DULoxetine (CYMBALTA) 60 mg, Oral, Daily etodolac (LODINE) 500 mg, Oral, 2 times daily folic acid (FOLVITE) 1,000 mcg, Oral, Daily hydroxychloroquine (Plaquenil) 200 MG tablet 1 tablet, Oral, 2 times daily leflunomide (Arava) 20 MG tablet 1 tablet, Oral, Daily methotrexate 50 MG/2ML injection INJECT 0.6 MILLILITERS SUBCUTANEOUSLY ONCE A WEEK methylPREDNISolone (Medrol Dospak) 4 MG tablets TAKE 6 TABLETS ON DAY 1 DIRECTED ON PACKAGE AND DECREASE BY 1 TAB EACH DAY FOR A TOTAL OF 6 DAYS omeprazole (PRILOSEC) 20 mg, Oral, Daily Trelegy Ellipta 100-62.5-25 MCG/ACT aerosol powder 1 puff, Inhalation, Every 24 hours ALLERGIES: No Known Allergies REVIEW OF SYMPTOMS: Review of Systems Constitutional: Negative for appetite change, chills and fever. HENT: Negative for congestion, ear pain and sore throat. Eyes: Negative for pain, discharge, redness and visual disturbance. Respiratory: Negative for cough, shortness of breath and wheezing. Cardiovascular: Negative for chest pain, palpitations and leg swelling. Gastrointestinal: Negative for abdominal pain, blood in stool, constipation, diarrhea, nausea and vomiting. Genitourinary: Negative for difficulty urinating, dysuria and frequency. Musculoskeletal: Positive for arthralgias and joint swelling. Negative for back pain and myalgias. Skin: Negative for rash and wound. Neurological: Negative for dizziness, tremors, seizures, syncope and headaches. Psychiatric/Behavioral: Negative for behavioral problems, self-injury and suicidal ideas. The patient is not nervous/anxious. Hematological: Does not bruise/bleed easily. Endocrine: Negative for polydipsia, polyphagia and polyuria. Allergic/Immunologic: Negative for environmental allergies and food allergies. PAST MEDICAL HISTORY Past Medical History: Diagnosis Date Anemia 2 years ago Headache 09/07/2023 Tuberculosis 1974 Past Surgical History: Procedure Laterality Date HYSTERECTOMY 6 years or more family history includes Alcohol abuse in her father; Arthritis in her mother; COPD in her mother; Depression in her mother; Diabetes in her father; Drug abuse in her daughter; Heart disease in her paternal grandfather; Hypertension in her father; Learning disabilities in her brother; Mental illness in her father's sister. OBJECTIVE: Visit Vitals BP 112/78 (BP Location: Left arm, Patient Position: Sitting, BP Cuff Size: Adult long) Pulse 84 Temp 98.5 F (Temporal) Resp 19 Ht 5' 7 Wt 201 lb SpO2 98% BMI 31.48 kg/m Smoking Status Every Day BSA 2.08 m Physical Exam Vitals and nursing note reviewed. Constitutional: General: She is not in acute distress. Appearance: Normal appearance. HENT: Head: Normocephalic and atraumatic. Right Ear: Tympanic membrane, ear canal and external ear normal. Left Ear: Tympanic membrane, ear canal and external ear normal. Nose: Nose normal. No congestion or rhinorrhea. Mouth/Throat: Mouth: Mucous membranes are moist. Pharynx: No oropharyngeal exudate or posterior oropharyngeal erythema. Eyes: Extraocular Movements: Extraocular movements intact. Conjunctiva/sclera: Conjunctivae normal. Cardiovascular: Rate and Rhythm: Normal rate and regular rhythm. Pulses: Normal pulses. Heart sounds: Normal heart sounds. Pulmonary: Effort: Pulmonary effort is normal. Breath sounds: Normal breath sounds. No wheezing or rales. Abdominal: General: Bowel sounds are normal. There is no distension. Palpations: Abdomen is soft. There is no mass. Tenderness: There is no abdominal tenderness. Musculoskeletal: General: Swelling (right knee joint) present. Normal range of motion. Cervical back: Normal range of motion and neck supple. Right lower leg: No edema. Left lower leg: No edema. Lymphadenopathy: Cervical: No cervical adenopathy. Skin: General: Skin is warm and dry. Capillary Refill: Capillary refill takes 2 to 3 seconds. Findings: No rash. Neurological: General: No focal deficit present. Mental Status: She is alert and oriented to person, place, and time. Psychiatric: Mood and Affect: Mood normal. Behavior: Behavior normal. Thought Content: Thought content normal. Judgment: Judgment normal. ASSESSMENT AND PLAN: No follow-ups on file. Problem List Items Addressed This Visit Obesity, unspecified - Primary Colon cancer screening Still has not got done her cologard, reminded her to do Rheumatoid arthritis of multiple sites with negative rheumatoid factor (CMS/HCC) Cont with Rheumatology Current smoker Peritonsillar abscess Sxs have resolved and she is encouraged to have fu with ENT Encounter for screening mammogram for malignant neoplasm of breast Has not had her mammogram as of yet, states she did not get a call from [facility] I gave her a copy of order with scheduling number documented in this encounter [facility] 03-07-2024 History of Present illness Narrative Associated Problem(s): Rheumatoid arthritis of multiple sites with negative rheumatoid factor (CMS/HCC) Continue with Rheumatology Associated Problem(s): Peritonsillar abscess Finish atb, needs to schedule ENT fu Would like some extended time off of work under her STD, this is likely also related to her underlying RA and immunosupressant therapy Fu in 3 weeks with me Off work from 03/04/24-RTW on 04/01/24 Pt is having stomach pain, having loose stools since being on atb, fatigue, achy, and sore. Pt also states she has had a headache on and off since last week-since having strep throat Cepacol sore [id number] Images from the original note were not included. Monet Jones is a 53 y.o. female presents with chief complaint of No chief complaint on file. HPI: Here for hospital follow up for Peritonsilar abscess. Reviewed [facility] ER notes and [facility]'s notes for HPI as well as hospital course She was discharged home on augmenting and steroids. She just finished her steroids. Augmentin, is causing upset stomach and diarrhea. Otherwise no other sxs. She has some soreness to her throat, but significantly improved from her initial presentation. Denies fever, chills, +fatigue an generalized PEARL. No chest pain, dyspnea, or diff swallowing SUBJECTIVE: MEDICATIONS: Current Outpatient Medications Medication Instructions acetaminophen (Tylenol 8 Hour) 650 MG ER tablet Every 8 hours albuterol HFA 90 mcg/act inhaler 2 puffs, Inhalation, Every 6 hours PRN amitriptyline (ELAVIL) 25 mg, Oral, Nightly amoxicillin-clavulanate (Augmentin) 875-125 MG tablet 1 tablet, Oral, 2 times daily atorvastatin (LIPITOR) 40 mg, Oral, Nightly BD Insulin Syringe U/F 31G X 16 1 ML misc USE DIRECTED cetirizine (ZYRTEC) 10 mg, Oral, Daily DULoxetine (CYMBALTA) 60 mg, Oral, Daily etodolac (LODINE) 500 mg, Oral, 2 times daily folic acid (FOLVITE) 1,000 mcg, Oral, Daily hydroxychloroquine (Plaquenil) 200 MG tablet 1 tablet, Oral, 2 times daily leflunomide (Arava) 20 MG tablet 1 tablet, Oral, Daily methotrexate 50 MG/2ML injection INJECT 0.6 MILLILITERS SUBCUTANEOUSLY ONCE A WEEK methylPREDNISolone (Medrol Dospak) 4 MG tablets TAKE 6 TABLETS ON DAY 1 DIRECTED ON PACKAGE AND DECREASE BY 1 TAB EACH DAY FOR A TOTAL OF 6 DAYS omeprazole (PRILOSEC) 20 mg, Oral, Daily predniSONE (Deltasone) 20 MG tablet 2 tablets, Oral, Daily Trelegy Ellipta 100-62.5-25 MCG/ACT aerosol powder 1 puff, Inhalation, Every 24 hours ALLERGIES: No Known Allergies REVIEW OF SYMPTOMS: Review of Systems Constitutional: Positive for fatigue. Negative for appetite change, chills, fever and night sweats. HENT: Positive for sore throat and trouble swallowing. Negative for congestion and ear pain. Eyes: Negative for pain, discharge, redness and visual disturbance. Respiratory: Negative for cough, shortness of breath and wheezing. Cardiovascular: Negative for chest pain, palpitations and leg swelling. Gastrointestinal: Positive for diarrhea and nausea. Negative for abdominal pain, blood in stool, constipation and vomiting. Genitourinary: Negative for difficulty urinating, dysuria and frequency. Musculoskeletal: Positive for arthralgias. Negative for back pain, joint swelling and myalgias. Skin: Negative for rash and wound. Neurological: Negative for dizziness, tremors, seizures, syncope and headaches. Psychiatric/Behavioral: Negative for behavioral problems, self-injury and suicidal ideas. The patient is not nervous/anxious. Hematological: Does not bruise/bleed easily. Endocrine: Negative for polydipsia, polyphagia and polyuria. Allergic/Immunologic: Negative for environmental allergies and food allergies. PAST MEDICAL HISTORY Past Medical History: Diagnosis Date Anemia 2 years ago Headache 09/07/2023 Tuberculosis 1975 Past Surgical History: Procedure Laterality Date HYSTERECTOMY 6 years or more family history includes Alcohol abuse in her father; Arthritis in her mother; COPD in her mother; Depression in her mother; Diabetes in her father; Drug abuse in her daughter; Heart disease in her paternal grandfather; Hypertension in her father; Learning disabilities in her brother; Mental illness in her father's sister. OBJECTIVE: Visit Vitals BP 118/66 (BP Location: Left arm, Patient Position: Sitting, BP Cuff Size: Adult long) Pulse 73 Temp 98.5 F (Temporal) Resp 19 Ht 5' 7 Wt 203 lb 3.2 oz SpO2 93% BMI 31.83 kg/m Smoking Status Every Day BSA 2.09 m Physical Exam Vitals and nursing note reviewed. Constitutional: General: She is not in acute distress. Appearance: Normal appearance. HENT: Head: Normocephalic and atraumatic. Right Ear: Tympanic membrane, ear canal and external ear normal. There is no impacted cerumen. Left Ear: Tympanic membrane, ear canal and external ear normal. There is no impacted cerumen. Nose: Nose normal. No congestion or rhinorrhea. Comments: pallor Mouth/Throat: Mouth: Mucous membranes are moist. Pharynx: Posterior oropharyngeal erythema (minimal left tosilar region, no exudate) present. No oropharyngeal exudate. Eyes: Extraocular Movements: Extraocular movements intact. Conjunctiva/sclera: Conjunctivae normal. Neck: Vascular: No carotid bruit. Cardiovascular: Rate and Rhythm: Normal rate and regular rhythm. Pulses: Normal pulses. Heart sounds: Normal heart sounds. Pulmonary: Effort: Pulmonary effort is normal. Breath sounds: Normal breath sounds. Abdominal: General: Bowel sounds are normal. There is no distension. Palpations: Abdomen is soft. There is no mass. Tenderness: There is no abdominal tenderness. Musculoskeletal: General: Normal range of motion. Cervical back: Normal range of motion and neck supple. Right lower leg: No edema. Left lower leg: No edema. Lymphadenopathy: Cervical: No cervical adenopathy. Skin: General: Skin is warm and dry. Capillary Refill: Capillary refill takes 2 to 3 seconds. Findings: No rash. Neurological: General: No focal deficit present. Mental Status: She is alert and oriented to person, place, and time. Psychiatric: Mood and Affect: Mood normal. Behavior: Behavior normal. Thought Content: Thought content normal. Judgment: Judgment normal. ASSESSMENT AND PLAN: No follow-ups on file. Problem List Items Addressed This Visit Rheumatoid arthritis of multiple sites with negative rheumatoid factor (CMS/HCC) Continue with Rheumatology Peritonsillar abscess - Primary Finish atb, needs to schedule ENT fu Would like some extended time off of work under her STD, this is likely also related to her underlying RA and immunosupressant therapy Fu in 3 weeks with me Off work from 03/04/24-RTW on 04/01/24 Immunocompromised state due to drug therapy (CMS/HCC) Encounter for screening mammogram for malignant neoplasm of breast Relevant Orders Bilateral screening mammogram documented in this encounter [facility] 02-25-2022 Note PROCEDURE: XR HIP RT 2 [...] authenticated by: TODD JACOBS Date: 2022-02-25 17:45 [facility] 09-15-2021 Note Chief Complaint Referral *Hematuria HPI Staff Evaluation requested by Shandra Romero [employer] due to hematuria. Pt is a new [...] Illness Tests reviewed: reviewed UA, CT AP ([facility]), external records I have reviewed the [...] procedure, # 2 cap(s), Refills(s) 0, Pharmacy: [facility]/pharm[facility] #[id number], 170, cm, 09/15/21 8:33:00 EDT, Height/Length Dosing, 93.9, kg, 09/15/21 8:33:00 EDT, Weight Dosing estradiol topical, See Instructions, 42.5 gm, Refill(s) 3, Apply pea sized amount 3x a week for 4 weeks and 2x a week after, [facility] #[id number], 170, cm, 09/15/21 8:33:00 EDT, Height/Length Dosing, 93.9, (more content not included)... [facility] Comment on above: Result Comment: Elec tronically Signed By: Vickie Montiel MD\.br\Date and Time Signed: 09/15/21 09:35 EDT\.br\Electronically Co-Signed By: Zohra Berg\.br\Date and Time Co-Signed: 09/15/21 09:17 EDT 09-15-2021 Hospital Discharge instructions Patient Education 09/15/2021 09:00:40 Hematuria, Adult [...] Follow these instructions at home: Medicines Take yvxi-uih-oxminzx and prescription medicines only as told by [...] or the blood stops without treatment. Take slpl-jpp-tnuyhnn and prescription medicines only as told by your health care provider. Drink enough fluid to keep your urine clear or pale yellow. This information is not intended to replace advice given to you by your health care provider. Make sure you discuss any questions you have with your health care provider. Document Released: 06/05/2006 Document Revised: 10/30/2019 Document Reviewed: 07/08/2017 [employer] Patient Education 2020 [employer] Follow Up Care 08/23/2021 15:52:47 With:Dinesh SABA, MARCELLA Smith, URO Address: [address] [place] [phone] Business (1) When: Unknown [facility] [employer] 04-14-2021 Evaluation note Encounter Date Diagnosis Assessment [...] Patient care instructions given in writting by [facility] Care At Home document. [employer] Other Evaluation + Plan note Future Appointments Appointment Date:09/16/2021 08:30:00 AM Scheduled Provider: Location:[facility] Appointment Type:Urology CALL PAT FT Appointment Date:09/27/2021 09:00:00 AM Scheduled Provider: Location:[facility] Appointment Type:Urology FT [facility] evaluation noteNo assessment information available [facility] Work Phone: Evaluation note* Diagnosis Peritonsillar abscess- Primary Obesity due to excess calories without serious comorbidity, unspecified class Current smoker Colon cancer screening Special screening for malignant neoplasms, colon Rheumatoid arthritis of multiple sites with negative rheumatoid factor (CMS/HCC) Encounter for screening mammogram for malignant neoplasm of breast [facility] Diagnosis Peritonsillar abscess- Primary Encounter for screening mammogram for malignant neoplasm of breast Immunocompromised state due to drug therapy (CMS/HCC) Rheumatoid arthritis of multiple sites with negative rheumatoid factor (CMS/HCC) [facility] this [facility] Narrative - Reported* Type Description Date Medical History rheumatoid arthritis Medical History Osteoarthritis Surgical History HYSTERECTOMY Surgical History 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 as chi ld Hospitalization History see above [employer] Other Hospital course Narrative No data available for this section [facility] Hospital Discharge instructions No data available for this section [facility] Summary Purpose Family History No Family History Records FoundNo Family History Records FoundNo Family History Records FoundNo Family History Records FoundNo Family History Records Found Advance Directives Advance Directive Response Recorded Date/ Time Advance Directives No June 23, 2020 8:10am Chief Complaint and Reason for Visit Chief Complaint M05.79/m15.0/z79.899 Additional Source Comments REASON FOR VISIT (unrecogniz ed section and content) #26 VERO HURLEY TRJOSE, COVI D EXPOSURE, HEADACHE, SORE THROAT, HOT FLASHES, CHEST CONGESTION INFORMATION SOURCE (unrecogn ized section and content) DATE CREATED AUTHOR 02/01/2022 [facility] DATE CREATED AUTHOR AUTHOR'S ORGANIZ ATION 08/24/2022 [facility] DATE CREATED AUTHOR AUTHOR'S ORGANIZ ATION 12/15/2022 [facility] DATE CREATED AUTHOR AUTHOR'S ORGANIZ ATION 03/10/2024 [facility] DATE CREATED AUTHOR AUTHOR'S ORGANIZ ATION 03/26/2024 [facility] [employer] Care Teams (unrecognized sec tion and content) Team Status: Active Member Role Status Dates Shandra Romero Primary Care Provider Active Team Status: Inactive Member Role Status Dates Shandra Romero Primary Care Provider Active Cecil Taylor MD Attending Provider Active 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 Specialty Start Date End Date Thomas Ortez MD [address] [place] [phone] PCP - General Family Medicine 09/07/23 Shandra Romero NP [address] [place] [address] PCP - [facility] 02/18/24 Shandra Romero NP [address] [place] [address] Nurse Practitioner Nurse Practitioner 01/03/23 Shandra Romero NP [address] [place] [phone] Nurse Practitioner Family Medicine 09/07/23 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 Specialty Start Date End Date Thomas Ortez MD [address] [place] [address] PCP - General Family Medicine 09/07/23 Shandra Romero NP [address] [place] [address] PCP - [facility] 02/18/24 Shandra Romero NP [address] [place] [address] Nurse Practitioner Nurse Practitioner 01/03/23 Shandra Romero NP [address] [place] [address] Nurse Practitioner Family Medicine 09/07/23 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 Specialty Start Date End Date Thomas Ortez MD [address] [place] [address] PCP - General Family Medicine 09/07/23 hSandra Romero NP [address] [place] [address] Nurse Practitioner Nurse Practitioner 01/03/23 Shandra Romero NP [address] [place] [address] Nurse Practitioner Family Medicine 09/07/23 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 [employer] provides no warranty or guarantee of the accuracy or completeness of information in this document.
[2024-07-22 20:36] VITALS: BP 116/75; PULSE 85; O2SAT 99; BMI 31.3
[2024-07-22 20:41] VITALS: PULSE 81
--- NOTE | 2024-07-22 20:41 | ECG_ITS ---
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
[2024-07-23] VITALS (10 sets, daily range): BP systolic 107–112; BP diastolic 68–83; O2SAT 94–100
--- NOTE | 2024-07-23 00:21 | PC.NURSE ---
this patient complains of chest pressure on and off for the past 2 or 3 days, chest pain worse when taking a deep breath,. patient also add under a lot fo stress a in the family, plus right arm pain for a couple weeks
--- NOTE | 2024-07-23 00:33 | ED.CHESTPAI1 ---
HPI - Chest Pain General Chief Complaint: Chest Pain Stated Complaint: CHEST PAINS Time Seen by Provider: 07/22/24 23:19 Source: patient Mode of arrival: walk-in Limitations: no limitations History of Present Illness HPI narrative: This 54-year-old female with a history of tobacco use presents for evaluation of 2 days of right-sided chest pain and right arm pain that radiates up into her neck. She states the pain is worse with deep breathing. She has an occasional dry cough. She denies any nausea or vomiting. She states she is under a lot of stress and recently had a in the family. She is not having any left-sided chest pain dizziness shortness of breath or syncope. She has no abdominal pain. She has no lower extremity pain or swelling. Related Data Home Medications ?Medication ?Instructions ?Recorded ?Confirmed amitriptyline 25 mg tablet 25 mg PO QPM 02/02/24 03/02/24 duloxetine 60 mg capsule,delayed 60 mg PO DAILY 02/02/24 03/02/24 release etodolac 500 mg tablet 500 mg PO BID 02/02/24 03/02/24 folic acid 1 mg tablet 1 mg PO DAILY 02/02/24 03/02/24 hydroxychloroquine 200 mg tablet 200 mg PO BID 02/02/24 03/02/24 methotrexate sodium 25 mg/mL 15 mg subcut QWEEK 02/02/24 03/02/24 injection solution omeprazole 20 mg capsule,delayed 20 mg PO DAILY 02/02/24 03/02/24 release Allergies Allergy/AdvReac Type Severity Reaction Status Date / Time No Known Drug Allergies Allergy Verified 07/22/24 20:39 Review of Systems ROS Status of ROS 10 or more systems reviewed and unremarkable except as noted in history and below [facility] Medical History (Updated 07/23/24 @ 01:45 by Sharron Walter MD) High cholesterol ?E78.00 - Pure hypercholesterolemia, unspecified (ICD-10) Depression ?F32.A - Depression, unspecified (ICD-10) Surgical History (Updated 03/02/24 @ 17:26 by Ladonna Najera) H/O: hysterectomy ?Z90.710 - Acquired absence of both cervix and uterus (ICD-10) Exam Narrative Exam Narrative: Vital signs and Nursing Notes reviewed: Patient is afebrile with a normal pulse, normal blood pressure, she is not hypoxic with pulse ox of 99% on room air General: Awake, alert, oriented, no acute distress, lying comfortably on the stretcher HEENT: Normocephalic atraumatic, mucous membranes are moist and pink, eyes are clear, normal conjunctiva, vision is grossly intact, posterior pharynx is normal in appearance. Neck: Supple, no meningeal signs, mild tenderness in the right paravertebral musculature Chest: Lungs are clear to auscultation with good air entry, there is no wheezing rhonchi or rales appreciated no accessory muscle use, patient is speaking in complete sentences, mild tenderness to chest wall palpation, no crepitus or skin rash noted. There is also tenderness in the right posterior scalene muscles and trapezius CVS: Regular rate and rhythm S1-S2, no murmurs rubs or gallops, pulses are brisk and equal bilaterally ABD: Soft, nondistended, nontender, no rebound guarding or rigidity, bowel sounds are normal, no pulsatile masses appreciated Extremities: Moving all extremities, no lower extremity tenderness or swelling noted, negative Homans' sign, pulses are brisk and equal bilaterally Skin: Normal in appearance without rash,pallor, petechiae or purpura Neuro: No focal deficits Constitutional Vital Signs, click to edit/add: Last Vital Signs Pulse 85 07/22/24 20:36 Resp 18 07/22/24 20:36 BP 116/75 07/22/24 20:36 Pulse Ox 99 07/22/24 20:36 O2 Del Method Room Air 07/22/24 20:36 Course Vital Signs Vital signs: Vital Signs Pulse Rate 85 07/22/24 20:36 Respiratory Rate 18 07/22/24 20:36 Blood Pressure 116/75 07/22/24 20:36 Pulse Oximetry 99 07/22/24 20:36 Oxygen Delivery Method Room Air 07/22/24 20:36 Pulse Rate 85 07/22/24 20:36 Respiratory Rate 18 07/22/24 20:36 Blood Pressure 116/75 07/22/24 20:36 Pulse Oximetry 99 07/22/24 20:36 Oxygen Delivery Method Room Air 07/22/24 20:36 MDM - Chest Pain MDM Narrative Medical decision making narrative: This 54-year-old female, smoker, presents for evaluation of right sided chest and right arm pain with radiation of her pain up into her neck. She is tender at the scalene muscles in the posterior thoracic region. There is no tenderness over the left side of her lungs. The symptoms started yesterday. She admits that she is under a lot of stress and recently had a in her family. EKG done upon arrival was a normal sinus rhythm at 81 with no acute findings. She was medicated with Toradol as she is driving. A cardiac workup including CBC with differential, comprehensive metabolic profile, D-dimer and troponin were ordered. The labs are normal including a normal troponin and normal D-dimer. Chest x-ray was ordered and was reviewed by myself. There is no acute pulmonary infiltrate within normal cardiac borders and no pneumothorax. On reevaluation she does not need anything stronger for pain. She will be discharged home with recommendation for close follow-up with her family physician and a prescription for ibuprofen 600 mg and Parafon forte for muscle spasm. Lab Data Attestation: I reviewed the patient's lab results. Labs: Lab Results 07/23/24 Range/Units 00:39 WBC 9.7 (4.0-11.0) 10^3/uL RBC 4.37 (4.20-5.40) 10^6/uL Hgb 12.2 (12.0-16.0) g/dL Hct 37.3 (36.0-48.0) % MCV 85.4 (81.0-99.0) fL MCH 27.9 (26.7-34.0) pg MCHC 32.7 (29.9-35.2) g/dL RDW 13.3 (11.0-15.0) % Plt Count 318 (150-450) 10^3/uL MPV 9.5 (9.5-13.5) fL Neut % (Auto) 64.0 (43.0-75.0) % Lymph % (Auto) 26.2 (20.5-60.0) % [place] % (Auto) 7.3 (1.7-12.0) % Eos % (Auto) 1.9 (0.9-7.0) % Baso % (Auto) 0.5 (0.2-2.0) % Neut # (Auto) 6.2 (1.4-6.5) 10^3/uL Lymph # (Auto) 2.5 (1.2-3.8) 10^3/uL [place] # (Auto) 0.7 (0.3-0.8) 10^3/uL Eos # (Auto) 0.2 (0.0-0.7) 10^3/uL Baso # (Auto) 0.1 (0.0-0.1) 10^3/uL Abs Immat Gran (auto) 0.01 (0.00-0.03) 10^3/uL Imm/Tot Granulo (auto) 0.1 (0.0-0.5) % D-Dimer 0.32 (<=0.59) mg/L FEU Sodium 140 (136-145) mmol/L Potassium 3.6 (3.5-5.1) mmol/L Chloride 103 (98-107) mmol/L Carbon Dioxide 28.3 (21.0-32.0) mmol/L Anion Gap 12.3 BUN 17.0 (7.0-18.0) mg/dL Creatinine 1.10 H (0.55-1.02) mg/dL Est GFR ( Amer) >60 (>=60 mL/min/1.73m^2) Est GFR (Non-Af Amer) 52 L (>=60 mL/min/1.73m^2) BUN/Creatinine Ratio 15.5 Glucose 100 (74-106) mg/dL Calcium 9.0 (8.5-10.1) mg/dL Total Bilirubin 0.3 (0.2-1.0) mg/dL AST 13 L (15-37) U/L ALT 18 (14-59) U/L Alkaline Phosphatase 104 (46-116) U/L Troponin I High Sens 4.2 (4.0-51.3) pg/mL Total Protein 7.4 (6.4-8.2) g/dL Albumin 3.5 (3.4-5.0) g/dL Globulin 3.9 g/dL Albumin/Globulin Ratio 0.9 ECG Data Attestation: I personally reviewed and interpreted this ECG as follows: (Sinus rhythm 80 bpm, normal axis, normal intervals, no acute ST segment elevation or T wave inversion) Heart Score History: Slightly/Non-Suspicious ECG: Normal Age: >45-<65 years Risk Factors: 1 or 2 Risk Factors Troponin: <Normal Limit Total Heart Score Recommendations & Risks:: 2 Discharge Plan Discharge Chief Complaint: Chest Pain Clinical Impression: Musculoskeletal chest pain Patient Disposition: Home, Self-Care Time of Disposition Decision: 01:44 Condition: Good Prescriptions / Home Meds: No Action amitriptyline 25 mg tablet 25 mg PO QPM duloxetine 60 mg capsule,delayed release(DR/EC) 60 mg PO DAILY etodolac 500 mg tablet 500 mg PO BID folic acid 1 mg tablet 1 mg PO DAILY hydroxychloroquine 200 mg tablet 200 mg PO BID methotrexate sodium 25 mg/mL solution 15 mg subcut QWEEK Patient Comments: MONDAY omeprazole 20 mg capsule,delayed release(DR/EC) 20 mg PO DAILY Print Language: Kinyarwanda Instructions: Noncardiac Chest Pain (ED), Chest Wall Pain (ED) Referrals: Shandra Romero NP [Primary Care Provider] - 1 week
[2024-07-23] MEDS: KETOROLAC TROMETHAMINE 60 MG/2 ML VIAL IM (00:41)
[2024-07-23 00:48] LABS: Basophils Absolute Auto 0.1 10^3/uL (0.0-0.1); Basophils Percent Auto 0.5 % (0.2-2.0); Eosinophils Absolute Auto 0.2 10^3/uL (0.0-0.7); Eosinophils Percent Auto 1.9 % (0.9-7.0); Hematocrit 37.3 % (36.0-48.0); Hemoglobin 12.2 g/dL (12.0-16.0); Immature Granulocytes Abs Auto 0.01 10^3/uL (0.00-0.03); Immature Granulocytes Pct Auto 0.1 % (0.0-0.5); Lymphocytes Absolute Auto 2.5 10^3/uL (1.2-3.8); Lymphocytes Percent Auto 26.2 % (20.5-60.0); Mean Corpuscular HGB Conc 32.7 g/dL (29.9-35.2); Mean Corpuscular Hemoglobin 27.9 pg (26.7-34.0); Mean Corpuscular Volume 85.4 fL (81.0-99.0); Mean Platelet Volume 9.5 fL (9.5-13.5); Monocytes Absolute Auto 0.7 10^3/uL (0.3-0.8); Monocytes Percent Auto 7.3 % (1.7-12.0); Neutrophils Absolute Auto 6.2 10^3/uL (1.4-6.5); Platelet Count 318 10^3/uL (150-450); Red Blood Count 4.37 10^6/uL (4.20-5.40); Red Cell Distribution Width 13.3 % (11.0-15.0); White Blood Count 9.7 10^3/uL (4.0-11.0)
[2024-07-23 01:04] LABS: D Dimer 0.32 mg/L FEU (<=0.59)
[2024-07-23 01:06] LABS: Alanine Aminotransferase 18 U/L (14-59); Albumin Globulin Ratio 0.9; Albumin Level 3.5 g/dL (3.4-5.0); Alkaline Phosphatase 104 U/L (46-116); Anion Gap 12.3; Aspartate Amino Transferase 13 U/L (15-37); BUN Creatinine Ratio 15.5; Bilirubin Total 0.3 mg/dL (0.2-1.0); Carbon Dioxide 28.3 mmol/L (21.0-32.0); Chloride 103 mmol/L (98-107); Estimated GFR (African America >60 (>=60 mL/min/1.73m^2); Estimated GFR (Non-African Ame 52 (>=60 mL/min/1.73m^2); Globulin 3.9 g/dL; Glucose 100 mg/dL (74-106); Potassium 3.6 mmol/L (3.5-5.1); Sodium 140 mmol/L (136-145); Total Protein 7.4 g/dL (6.4-8.2); Troponin I High Sensitivity 4.2 pg/mL (4.0-51.3)
--- NOTE | 2024-07-23 01:24 | XR_ITS ---
The [address] [address] Patient Name: MONET ORTEGA MRN: [id number] date: 1970 Sex: F Assigned Patient Location: ER Current Patient Location: Accession/Order Number: [id number] Exam Date: 07/23/2024 01:40 Report Date: 07/23/2024 03:53 At the request of: NAZIA MARKER Procedure: XR chest 1V SINGLE VIEW CHEST: 07/23/2024 1:40 AM EST CLINICAL HISTORY:Right sided CP COMPARISONS: None. TECHNIQUE: Single frontal view of the chest, utilizing portable technique. Portable radiography should be considered a technically compromised study. Strongly consider dedicated PA and lateral chest radiographs, as clinically indicated. FINDINGS: LINES AND TUBES: None appreciated. CARDIAC SILHOUETTE: Within normal limits. MEDIASTINAL AND HILAR CONTOUR: Within normal limits. PULMONARY PARENCHYMA AND PLEURA: Clear lungs. No consolidation, edema, effusion, or pneumothorax. OSSEOUS STRUCTURES:Nothing significant. OTHER COMMENTS:None. XR/XR chest 1V IMPRESSION: No acute findings. This report was generated with voice recognition software. Effort has been made to ensure accuracy of this report, however, occasional wording errors may persist. Please contact our office with any questions. Electronically authenticated by: KATERINA MA Date: 07/23/2024 03:53
--- NOTE | 2024-07-23 01:53 | PC.NURSE ---
i gave this patient verbal and written discharge along with 2 Rx, and this patient voices yes to understanding these. at time of discharge this patient voices no concerns and shows no signs of distress
== END 2024-07-23 01:55 | disposition home or self-care (01) ==
PROVIDERS: Emergency Provider Emergency Medicine; PCP Nurse Practitioner
DX: R07.89 Other chest pain (principal); Z63.4 Disappearance and death of family member; Z90.710 Acquired absence of both cervix and uterus; F17.200 Nicotine dependence, unspecified, uncomplicated
CPT/HCPCS: 36415; 71045; 80053; 84484; 85025; 85378; 93005; 96372; 99285; J1885

== ENCOUNTER 2025-01-06 07:15 | Emergency (ER) | payer BC, SELFPAY ==
--- OUTSIDE RECORDS SUMMARY | 2024-04-10 04:00 | XMS_ITS ---
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 Name Role Phone Shandra Romero CNP Primary Care Provider Unavail able Cory Brown Unavailable [phone] Allergies No Known Allergies REASON FOR VISIT 1 YEAR-COPD Medications Medication SIG (Take, Route, Frequency, Duration) Notes Start Date End Date Status Varenicline Tartrate (Starter) 0.5 MG X 11 & 1 MG X 42 as directed on package Orally bID for 30 days 09/20/2022 Not-Taking Trelegy Ellipta 100-62.5-25 MCG/ACT 1 puff Inhalation Once a day for 90 days Rinse after use Active Tylenol 8 Hour Arthritis Pain 650 MG 2 tablets as needed Orally every 8 hrs Active Medrol 4 MG 1 tablet with food or milk Orally PRN Not-Taking Varenicline Tartrate 1 MG 1 tablet Orally Twice a day for 30 days Continuing pack - to start after Starter pack completed 09/20/2022 Not-Taking Etodolac 500 MG 1 tablet with food Orally Twice a day Active Hydroxychloroquine Sulfate 200 MG as directed Orally Active Methotrexate Sodium 50 MG/2ML INJECT 0.3 ML (7.5 MG) SUBCUTANEOUSLY ONCE A WEEK Injection for 28 Days Active Atorvastatin Calcium 40 MG 1 tablet Orally Once a day Active DULoxetine HCl 60 MG 1 capsule Orally Once a day Active Albuterol Sulfate HFA 108 (90 Base) MCG/ACT 2 puffs as needed for SOB Inhalation every 4 hrs for 90 days Active Allergy Relief 10 MG 1 tablet Orally Once a day Active Social History Tobacco Use: Social History Observation Description Date Details (start date - stop date) Current Smoker NA - NA Tobacco Use/Smoking Question Answer Notes Patient is a current smoker How often do you smoke cigarettes? every day How many cigarettes a day do you smoke? 11-20 Additional Findings: Tobacco User Modera te cigarette smoker (10-19 cigs/day) Tobacco Control (Standard) Question Answer Notes Tobacco use: Current every day smoker Additional Findings: Tobacco user Moderate cigar ette smoker (10-19 cigs/day) Problems Problem Type SNOMED Code ICD Code Onset Dates Problem Status W/U Status Risk Notes Problem Body mass index [BMI] 33.0-33.9, adult (Z68.33) Active confirmed Encounters Encounter Location Date Provider Diagnosis [facility] [place] [address] [place] [address] 04/10/2024 Cory Brown Centrilobular emphys fela J43.2 ; Multiple pulmonary nodules R91.8 ; Wrkcq-6-uburovgzpyg 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 Does have occasional breaththrough symptoms and uses albuterol ~2x/wk, but otherwise she feels it is beneficial. Has mild dry mouth at times d/t the LAMA component, but she feels the benefits outweigh the risks. Discussed smoking cessation again - she acknowledged that she needs to quit and won't improve until she stops. F/U 1 year, or sooner PRN. 04/10/2024 Multiple pulmonary nodules (ICD-10 - R91.8) Unchanged tiny nodules in size or number on LDCT 03/27/2024 compared to 02/25/2022... for some baffling reason, it was not compared to the more recent 03/22/2023. Regardless, there has been no overall change. Will continue to be monitored via LDCT. 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 This in itself will not cause or typically contribute to emphysema. If the patient has any children, offer was made to provide testing kits so they can be tested to assess if they are carriers. 04/10/2024 Cigarette nicotine dependence with nicotine-induced disorder (ICD-10 - F17.219) Patient tried and failed Chantix, but she states it is more due to lack of effort on her part opposed to the actual medication. After discussion, she stated she would prefer to try cold turkey at this point. LDCT 03/27/2024: RADS-2. Continue annual LDCT, due 03/2025. 04/10/2024 Depression (ICD-10 - F32.A) No bupropion for smoking cessation as she is on duloxetine. 04/10/2024 Rheumatoid arthritis (ICD-10 - M06.9) Managed by [facility]. She restarted methotrexate. 04/10/2024 USP (current) use of inhaled steroids (ICD-10 - Z79.51) Patient was counseled to rinse & gargle with water after inhaled corticosteroid use. 04/10/2024 History of tuberculosis (ICD-10 - Z86.11) History of scrofula (1974), does not recall ever being treated otherwise. No known pulmonary involvement. 04/10/2024 History of COVID-19 (ICD-10 - Z86.16) 05/17/2021 04/10/2024 Encounter for screening for malignant neoplasm of respiratory organs (ICD-10 - Z12.2) Low-dose CT (LDCT) was recommended for lung cancer screening. The patient meets criteria including age 50-77, a smoking history of at least 20 pack-years, is currently smoking or has ceased smoking within the past 15 years, and has no signs or symptoms of lung cancer. Shared decision making performed with the patient. After LDCT has been completed, will review report and/or imaging and provide appropriate recommendations for the patient, including additional follow up if needed. Patient was counseled on smoking cessation/continued tobacco abstinence. LDCT will be due 03/2025. 04/10/2024 Obesity, unspecified (ICD-10 - E66.9) Patient's weight is inducing a restrictive pulmonary physiology. Weight loss indicated: Decrease calories, increase activity. 04/10/2024 Body mass index [BMI] 33.0-33.9, adult (ICD-10 - Z68.33) Plan Of Treatment Treatment Notes Assessment Notes Centrilobular emphysema She continues to do well on Trelegy. Does have occasional breaththrough symptoms and uses albuterol ~2x/wk, but otherwise she feels it is beneficial. Has mild dry mouth at times d/t the LAMA component, but she feels the benefits outweigh the risks. Discussed smoking cessation again - she acknowledged that she needs to quit and won't improve until she stops. F/U 1 year, or sooner PRN. Multiple pulmonary nodules Unchanged tiny nodules in size or number on LDCT 03/27/2024 compared to 02/25/2022... for some baffling reason, it was not compared to the more recent 03/22/2023. Regardless, there has been no overall change. Will continue to be monitored via LDCT. Fydpe-7-bkitnykwodk deficiency carrier Patient has normal variant alpha1-antitrypsin phenotype MS. This in itself will not cause or typically contribute to emphysema. If the patient has any children, offer was made to provide testing kits so they can be tested to assess if they are carriers. Cigarette nicotine dependenc e with nicotine-induced disorder Patient tried and failed Chantix, but she states it is more due to lack of effort on her part opposed to the actual medication. After discussion, she stated she would prefer to try cold turkey at this point. LDCT 03/27/2024: RADS-2. Continue annual LDCT, due 03/2025. Depression No bupropion for smoking cessation as she is on duloxetine. Rheumatoid arthritis Managed by [facility]. She restarted methotrexate. 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 History of tuberculosis History of scrofula (1974), does not recall ever being treated otherwise. No known pulmonary involvement. History of COVID-19 05/17/2021 Encounter for screening for malignant neoplasm of respiratory organs Low-dose CT (LDCT) was recommended for lung cancer screening. The patient meets criteria including age 50-77, a smoking history of at least 20 pack-years, is currently smoking or has ceased smoking within the past 15 years, and has no signs or symptoms of lung cancer. Shared decision making performed with the patient. After LDCT has been completed, will review report and/or imaging and provide appropriate recommendations for the patient, including additional follow up if needed. Patient was counseled on smoking cessation/continued tobacco abstinence. LDCT will be due 03/2025. Obesity, unspecified Patient's weight is inducing a restrictive pulmonary physiology. Weight loss indicated: Decrease calories, increase activity. 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 1 YEAR-COPD. * HPI: G eneral: PATIENT NO SHOW TO THIS VISIT. * ROS: G eneral/Constitutional: Fever or sweats d enies. C hange of appetite d enies. C hills d enies. W eight Change d enies. H EENT: Dry mouth d enies. S ore throat d enies. O ral Ulcers d enies. P ost Nasal Drip D enies. C ongestion D enies. H oarseness�Denies. C ardiovascular: Tachycardia d enies. C hest pain d enies. P alpitations d enies. R espiratory: Chest tightness d enies. P leurisy D enies. D yspnea w ith exertion. C ough o ccasionally. H emoptysis d enies. W heezing d enies. G astrointestinal: Acid Reflux/GERD/Heartburn d enies. D ysphagia d enies. M usculoskeletal: Arthralgias/joint pain y es, associated with rheumatoid arthritis. S kin: Easy bruising d enies. R bienvenido d enies. � N eurologic: Seizures d enies. T remor d enies. H ematology: Abnormal Bleeding d enies. P sychiatric: Anxiety d enies. * Medical History: C entrilobular emphysema, Multiple pulmonary nodules, Xoccz-9-mnctjkblpco deficiency carrier, Cigarette nicotine dependence with nicotine-induced disorder, Rheumatoid arthritis, Hyperlipidemia, Allergic rhinitis, History of COVID-19, Depression, Scrofula, History of tuberculosis. * Surgical History: N sheryl Surgery , hysterectomy, vaginal . * Hospitalization/Major Diagno stic Procedure: D enies Past Hospitalization. * Family History: F ather: mental illness, alcohol abuse, diagnosed with Unspecified essential hypertension, Unspecified heart disease. M other: COPD, cervical cancer, anemia, diagnosed with Unspecified essential hypertension, Unspecified heart disease, Other malignant neoplasm of unspecified site. B rother(s): Hepatitis C, diagnosed with Unspecified essential hypertension. S ister(s): COPD, cervical cancer, anemia. P aternal Grandfather: diagnosed with Unspecified heart disease. M aternal Grandmother: diagnosed with Unspecified essential hypertension, Unspecified heart disease. * Social History: T obacco Use: T obacco Control (Standard) T obacco use: C urrent every day smoker A dditional Findings: Tobacco user M oderate cigarette smoker (10-19 cigs/day) Electronic Cigarette use C urrent user Y es Rare LM: Additional Tobacco Questions N umber of Years Pt Smoked: 2 1 N umber of Packs per Day: 0 .5 Previously 1ppd x 20 years = 20 pack-year history (09/20/2022) Tobacco Use/Smoking P atient is a c urrent smoker H ow often do you smoke cigarettes? e very day H ow many cigarettes a day do you smoke? 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 D rugs/Alcohol: D rugs H ave you used drugs other than those for medical reasons in the past 12 months? N o D oes the Patient have a History of Drug Abuse in the Past? N o Caffeine I ntake: 1 -2 cups per day Soda Do you drink alcohol?: Yes, Socially. Do you smoke marijuana?: Denies. * Medications: T aking Albuterol Sulfate HFA 108 (90 Base) MCG/ACT Aerosol Solution 2 puffs as needed for SOB Inhalation every 4 hrs , Taking Allergy Relief(Loratadine) 10 MG Tablet 1 tablet Orally Once a day , Taking Atorvastatin Calcium 40 MG Tablet 1 tablet Orally Once a day , Taking DULoxetine HCl 60 MG Capsule Delayed Release Particles 1 capsule Orally Once a day , Taking Etodolac 500 MG Tablet 1 tablet with food Orally Twice a day , Taking Hydroxychloroquine Sulfate 200 MG Tablet as directed Orally , Taking Methotrexate Sodium 50 MG/2ML Solution INJECT 0.3 ML (7.5 MG) SUBCUTANEOUSLY ONCE A WEEK Injection , Taking Trelegy Ellipta(Kiqzofhqbzq-Jwzeqddcy-Jkhgzb) 100-62.5-25 MCG/ACT Aerosol Powder Breath Activated 1 puff Inhalation Once a day , Notes to Pharmacist: Rinse after use, Taking Tylenol 8 Hour Arthritis Pain(Acetaminophen ER) 650 MG Tablet Extended Release 2 tablets as needed Orally every 8 hrs , Not-Taking/PRN Medrol(methylPREDNISolone) 4 MG Tablet 1 tablet with food or milk Orally PRN , Not-Taking/PRN Varenicline Tartrate 1 MG Tablet 1 tablet Orally Twice a day , Notes to Pharmacist: Continuing pack - to start after Starter pack completed, Not-Taking/PRN Varenicline Tartrate (Starter) 0.5 MG X 11 & 1 MG X 42 Tablet Therapy Pack as directed on package Orally bID * Allergies: N .K.D.A. Objective: * Vitals: * Examination: E xam: GENERAL APPEARANCE: A ppears stated age. Skin N ormal. Mouth P ink and moist. Oropharynx/Tongue M acroglossia , Tongue - Ridging. Trachea M idline. Chest N ormal. Respiratory Normal M ovements, E ffort N ormal. Auscultation D iminished breath sounds but clear. Cardiac R egular rate and rhythm. Gastrointestinal N ormal. Vascular N o edema. Musculoskeletal N ormal posture. Neurological F ocal, intact. Psychiatric A lert and oriented x3; p leasant affect.� Mentation/Cognition N ormal. Assessment: * Assessment: 1. C entrilobular emphysema - J43.2 (Primary) 2 . M ultiple pulmonary nodules - R91.8 3 . A nwfl-5-ypdxxawakgo deficiency carrier - Z14.8 R isk :Low N otes :Genotype: MS 4 . C igarette nicotine dependence with nicotine-induced disorder - F17.219 5. D epression - F32.A 6 . R heumatoid arthritis - M06.9 7 . L anju term (current) use of inhaled steroids - Z79.51 8 . H istory of tuberculosis - Z86.11 9 . H istory of COVID-19 - Z86.16 10. E ncounter for screening for malignant neoplasm of respiratory organs - Z12.2 �11. O besity, unspecified - E66.9 1 2. B kathy mass index [BMI] 33.0-33.9, adult - Z68.33 Plan: * Treatment: 2. M ultiple pulmonary nodules Notes: Unchanged tiny nodules in size or number on LDCT 03/27/2024 compared to 02/25/2022... for some baffling reason, it was not compared to the more recent 03/22/2023. Regardless, there has been no overall change. Will continue to be monitored via LDCT. 3. A cecf-4-fwxvhrlmpyg deficiency carrier Notes: Patient has normal variant alpha1-antitrypsin phenotype MS. This in itself will not cause or typically contribute to emphysema. If the patient has any children, offer was made to provide testing kits so they can be tested to assess if they are carriers. 4. C igarette nicotine dependence with nicotine-induced disorder Notes: Patient tried and failed Chantix, but she states it is more due to lack of effort on her part opposed to the actual medication. After discussion, she stated she would prefer to try cold turkey at this point. LDCT 03/27/2024: RADS-2. Continue annual LDCT, due 03/2025. 5. D epression Notes: No bupropion for smoking cessation as she is on duloxetine. 6. R heumatoid arthritis Notes: Managed by [facility]. She restarted methotrexate. 7. L anju term (current) use of inhaled steroids Notes: Patient was counseled to rinse & gargle with water after inhaled corticosteroid use. 8. H istory of tuberculosis Notes: History of scrofula (1974), does not recall ever being treated otherwise. No known pulmonary involvement. 9. H istory of COVID-19 Notes: 05/17/2021 10. E ncounter for screening for malignant neoplasm of respiratory organs Notes: Low-dose CT (LDCT) was recommended for lung cancer screening. The patient meets criteria including age 50-77, a smoking history of at least 20 pack-years, is currently smoking or has ceased smoking within the past 15 years, and has no signs or symptoms of lung cancer. Shared decision making performed with the patient. After LDCT has been completed, will review report and/or imaging and provide appropriate recommendations for the patient, including additional follow up if needed. Patient was counseled on smoking cessation/continued tobacco abstinence. LDCT will be due 03/2025. 11. O besity, unspecified Notes: Patient's weight is inducing a restrictive pulmonary physiology. Weight loss indicated: Decrease calories, increase activity. * Procedures: A lpha-1 Antitrypsin: Screening Date: . Genotype: M S. P FT: Data: 11/19/2020 -FEV1/FVC: 83% -FEV1: 89% -FVC: 85% -No bronchodilator administered -RV: 74% -T% -DLCO: 90% -Flow-volume loop. * Preventive Medicine: COVID Vaccination: H as patient had COVID Vaccination? COVID Vaccination N o Patient Declined Immunization Status: P neumovacc P t Refused. I nfluenza P t Refused. Screenings/Counseling: F ALL RISK SCREENING Fall Risk Assessment: O ne fall without injury in the past year Are you afraid of falling? N o T OBACCO ACTION PLAN Patient counselled on the dangers of tobacco use and urged to quit. 1 Cessation counseling provided 1 Wander COVARRUBIAS EXCLUSION Reason: P atient Reason refused/declined Type of Patient Reason: D rug declined by patient B PA ACTION PLAN Above Normal BMI Follow-up D ietary management education, guidance, and counseling * * Electronic signature of Edelmira Brown DO on 01/06/2025 at 07:20 AM EDT Sign off status: Pending Visit Status: N /S N/C (No Show/No Charge) * Provider: Chad Brown DO Date: 1 Generated for uSrinder weber/Armando/eTransmitting on: 0 01/06/2025 07:20 AM EDT History and Physical Notes * Examination Category Sub-Category Detail Notes Category Not es Exam GENERAL APPEARANCE: Appears stated age Skin Normal Mouth [place] and moist Trachea Midline Chest Normal Respiratory Normal Movements, Ef fort Normal Auscultation Diminished breath so unds but clear Percussion Egophony Bronchophony Fremitus Whispered pectoriloquy Cardiac Regular rate and rhy thm Gastrointestinal Normal Vascular No edema Musculoskeletal Normal posture Neurological Focal, intact Psychiatric Alert and oriented x 3; pleasant affect Mentation/Cognition Normal Oropharynx/Tongue Macroglossia , Tongu e - Ridging
--- OUTSIDE RECORDS SUMMARY | 2024-04-10 04:15 | XMS_ITS ---
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 Name Role Phone Shandra Romero CNP Primary Care Provider Unavail Cory Henry Unavailable [phone] REASON FOR VISIT No Show Appointment Encounters Encounter Location Date Provider Diagnosis Pulmonary Medicine [place] [address] [place] [address] 04/10/2024 Cory Brown Plan Of Treatment No Information Progress Notes * Cathie JONES NDOB:[birth year] (53 yo F)Acc No.[id number]:04/10/2024 Patient: Christin Cathie LUND :1970 A ge:53 Y S ex:Female Address:[address] [place] [id number] * true * Date: Generated for Surinder weber/Armando/eTransmitting on: 0 01/06/2025 07:20 AM EDT
[2025-01-06 07:18] VITALS: BP 111/81; PULSE 89; TEMP 37.4; O2SAT 100; BMI 30.5
--- OUTSIDE RECORDS SUMMARY | 2025-01-06 07:21 | XMS_ITS | Patient Health Record ---
Author Organization The [facility] in [place] Address [address] [place] [address] Care Team Providers Care Safety Director Name Role Phone Shandra Romero CNP Primary Care Provider Unavail able Angela Adams Unavailable [phone] Allergies No Known Allergies Results Component Value Reference Range Notes CT lung screening low-dose Reviewed date:04/02/2024 07:02:14 AM Interpretation: Performing Lab: Notes/Report: Source Facility: [place] [address] CT Scan Report Signed Patient: CATHIE JONES MR#: [id number] : 1970 Acct:[id number] Age/Sex: 53 / F ADM Date: 03/27/24 Loc: CT Attending Dr: Angela Adams D.O. Ordering Physician: Angela Adams D.O. Date of Service: 03/27/24 Procedure(s): CT lung screening low-dose Accession Number(s): [id number] cc: Shandra Romero NP [place] [id number] Patient Name: CATHIE JONES MRN: [id number] date: 1970 Sex: F Assigned Patient Location: CT Current Patient Location: Accession/Order Number: [id number] Exam Date: 03/27/2024 13:45 Report Date: 03/28/2024 06:17 At the request of: ANGELA ADAMS Procedure: CT lung screening low-dose EXAMINATION: CT lung screening low-dose HISTORY: Nicotine Dependence COMPARISON: CT chest 02/25/2022 TECHNIQUE: Axial, Coronal, and Sagittal images were created without the administration of IV contrast material. Dose reduction techniques were achieved by using automated exposure control and/or adjustment of mA and/or kV according to patient size and/or use of iterative reconstruction technique. FINDINGS: LUNGS: Stable appearance of a few tiny nodule/scarring scattered within the lungs. No new or suspicious findings. Minimal emphysematous changes. PLEURA: No mass, effusion, or pneumothorax. VASCULATURE: No abnormality. JAYANT: No mass or pathologic adenopathy. MEDIASTINUM: No mass or pathologic adenopathy. CARDIAC: No enlargement, pericardial thickening, or pericardial effusion. Coronary Artery calcifications: Coronary calcifications are absent. AORTA: No aneurysm or dissection. CHEST WALL: No mass or axillary adenopathy BONES: No bone lesion or fracture. LIMITED ABDOMEN: No suspicious findings. Limited images of the upper abdomen. OTHER: Negative. CT/CT lung screening low-dose IMPRESSION: 1. Lung-RADS 2- Benign Appearance or Behavior. Nodules with a very low likelihood of becoming a clinically active cancer due to size or lack of growth. Follow-up CT Chest in 1 year. Electronically authenticated by: WESTON CAN Date: 03/28/2024 06:17 Dictated By: Weston Can M.D. Signed By: 03/28/24618 DD/ 6 TD/TT: Memorial Designer: The [address] [address] [address] Scan Report Signed Patient: NORMAN JONES MR#: [id number] : 1970 Acct:[id number] Age/Sex: 53 / F ADM Date: 03/27/24 Loc: CT Attending Dr: Angela Adams D.O. Ordering Physician: Angela Adams D.O. Date of Service: 03/27/24 Procedure(s): CT sabina g screening low-dose Accession Number(s): [id number] cc: Shandra Romero NP [address] [address] Patient Name: CATHIE JONES MRN: [id number] date: 1970 Sex: F Assigned Patient Location: CT Current Patient Location: Accession/Order Numb er: [id number] Exam Date: 13:45 Report Date: 03/28/2024 06:17 At the request of: ANGELA ADAMS Procedure: CT lung s creening low-dose EXAMINATION: CT lung screening low-dose HISTORY: Nicotine Dependence COMPARISON: CT chest 02/25/2022 TECHNIQUE: Axial, Co brandt, and Sagittal images were created without the administration of IV contrast material. Dose reduction techniques were achieved by using automated e xposure control and/or adjustment of mA and/or kV according to patient size and/ or use of iterative reconstruction technique. FINDINGS: LUNGS: Stable appear ance of a few tiny nodule/scarring scattered within the lungs. No new or piedad picious findings. Minimal emphysematous changes. PLEURA: No mass, eff usion, or pneumothorax. VASCULATURE: No abnormality. JAYANT: No mass or pat hologic adenopathy. MEDIASTINUM: No mass or pathologic adenopathy. CARDIAC: No enlargem ent, pericardial thickening, or pericardial effusion. Coronary Artery calc ifications: Coronary calcifications are absent. AORTA: No aneurysm o r dissection. CHEST WALL: No mass or axillary adenopathy BONES: No bone lesio n or fracture. LIMITED ABDOMEN: No suspicious findings. Limited images of the upper abdomen. OTHER: Negative. C T/CT lung screening low-dose IMPRESSION: 1. Lung-RADS 2- Curt gn Appearance or Behavior. Nodules with a very low likelihood of becomi ng a clinically active cancer due to size or lack of growth. Follow-up CT Chest in 1 year. Electronically authe nticated by: WESTON CAN Date: 03/28/2024 06:17 Dictated By: Weston Can M.D. Signed By: 03/28/24618 DD/ 6 TD/TT: Memorial Designer: CT Chest Low Dose for Screen ing* Reviewed date:03/28/2024 08:00:59 AM Interpretation: Performing Lab: Notes/Report: Reason For Referral No Information Medications Medication SIG (Take, Route, Frequency, Duration) Notes Start Date End Date Status Etodolac 500 MG 1 tablet with food Orally Twice a day Active Hydroxychloroquine Sulfate 200 MG as directed Orally Active Methotrexate Sodium 50 MG/2ML INJECT 0.3 ML (7.5 MG) SUBCUTANEOUSLY ONCE A WEEK Injection for 28 Days Active Albuterol Sulfate HFA 108 (90 Base) MCG/ACT 2 puffs as needed for SOB Inhalation every 4 hrs for 90 days Active Varenicline Tartrate (Starter) 0.5 MG X 11 & 1 MG X 42 as directed on package Orally bID for 30 days 09/20/2022 Not-Taking Allergy Relief 10 MG 1 tablet Orally Once a day Active Atorvastatin Calcium 40 MG 1 tablet Orally Once a day Active DULoxetine HCl 60 MG 1 capsule Orally Once a day Active Trelegy Ellipta 100-62.5-25 MCG/ACT 1 puff Inhalation [...] start after Starter pack completed 09/20/2022 Not-Taking Social History Tobacco Use: Social History Observation [...] Problem Status W/U Status Risk Notes Problem 752649422 Obesity, unspecified (E66.9) Active confirmed Problem Centrilobular emphysema (42015431) Centrilobular emphysema (J43.2) Active confirmed Problem 430652875 snf (current) use of inhaled steroids (Z79.51) Active confirmed Problem Rheumatoid arthritis (03511744) Rheumatoid arthritis (M06.9) Active confirmed Problem Allergic rhinitis (60396863) Allergic rhinitis (J30.9) Active confirmed Problem 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) Cigarette nicotine dependence with nicotine-induced disorder (F17.219) Active confirmed Problem History of tuberculosis (068039062) History of tuberculosis (Z86.11) Active confirmed Problem Multiple pulmonary nodules (282862846) Multiple pulmonary nodules (R91.8) Active confirmed Problem Scrofula (97405511) Scrofula (A18.2) Active confirmed Problem 93729715 Dbndk-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 Low Genotype : MS Problem Body mass index 30.00 to 34.99 (113007642239297 ) Body mass index [BMI] 33.0-33.9, adult (Z68.33) Active confirmed Problem History of COVID-19 (305325027234820 105) History of COVID-19 (Z86.16) Active confirmed 05/17/20 21 Problem Depression (287297852) Depression (F32.A) Active confirmed Encounters Encounter Location Date Provider Diagnosis Pulmonary Medicine [place] [address] [place] [address] 04/10/2024 Angela Adams Plan Of Treatment No Information Insurance Providers Payer Name Payer Address Payer Phone Subscriber Number Group Number Insured Name Patient Relationship to Insured Coverage Start Date Coverage End Date [employer] [address] [place] [address] [id number] Cathie Jones Self - patient is the insured 9 Medical (General) History Medical History History ICD Code Centrilobular emphysema J43.2 Multiple pulmonary nodules R91.8 Uwxqy-6-cvmyvjibwsv deficiency carrier Z 14.8 Cigarette nicotine dependence with nicot ine-induced disorder F17.219 Rheumatoid arthritis M06.9 Hyperlipidemia E78.5 Allergic rhinitis J30.9 History of COVID-19 Z86.16 Depression F32.A Scrofula A18.2 History of tuberculosis Z86.11 Surgical History Surgery Date(Month/Year) Neck Surgery hysterectomy, vaginal
--- OUTSIDE RECORDS SUMMARY | 2025-01-06 07:21 | XMS_ITS | CCD ---
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 Name Role Phone HEATHER SHANDRA J Primary Care Physician [phone] Cecy Chiang Unavailable AICHHOLZ, APPRENTICE JOCKEY SHANDRA Admitting Unavailable AICHHOLZ, APPRENTICE JOCKEY SHANDRA Attending Unavailable AICHHOLZ, APPRENTICE JOCKEY SHANDRA Primary Care Unavailable DR WEST OBANDO V Consulting Unavailable AICHHOLZ, APPRENTICE JOCKEY SHANDRA Consulting Unavailable MISC, DR IBARRA Admitting Unavailable MISC, DR IBARRA Attending Unavailable AICHHOLZ, APPRENTICE JOCKEY SHANDRA Primary Care Unavailable MISC, DR IBARRA Consulting Unavailable MISC, DOCTOR Admitting Unavailable MISC, DR IBARRA Attending Unavailable AICHHOLZ, APPRENTICE JOCKEY SHANDRA Primary Care Unavailable AICHHOLZ, APPRENTICE JOCKEY SHANDRA Consulting Unavailable MISC, DR IBARRA Consulting Unavailable ZIEBDR TODD GARCIA Consulting Unavailable AICHHOLZ, APPRENTICE JOCKEY SHANDRA Admitting Unavailable AICHHOLZ, APPRENTICE JOCKEY SHADNRA Attending Unavailable AICHHOLZ, APPRENTICE JOCKEY SHANDRA Primary Care Unavailable SAMSA ., ANGELA Admitting Unavailable SAMSA ., ANGELA Attending Unavailable AICHHOLZ, APPRENTICE JOCKEY SHANDRA Primary Care Unavailable DR TODD JACOBS Consulting Unavailable SAMSA ., ANGELA Consulting Unavailable AICHHOLZ, APPRENTICE JOCKEY SHANDRA Admitting Unavailable AICHHOLZ, APPRENTICE JOCKEY SHANDRA Attending Unavailable AICHHOLZ, APPRENTICE JOCKEY SHANDRA Primary Care Unavailable AICHHOLZ, APPRENTICE JOCKEY SHANDRA Consulting Unavailable AICHHOLZ, APPRENTICE JOCKEY SHANDRA Admitting Unavailable AICHHOLZ, APPRENTICE JOCKEY SHANDRA Attending Unavailable AICHHOLZ, APPRENTICE JOCKEY SHANDRA Primary Care Unavailable AICHHOLZ, APPRENTICE JOCKEY SHANDRA Consulting Unavailable AICHHOLZ, APPRENTICE JOCKEY SHANDRA Admitting Unavailable AICHHOLZ, APPRENTICE JOCKEY SHANDRA Attending Unavailable AICHHOLZ, APPRENTICE JOCKEY SHANDRA Primary Care Unavailable DR WEST OBANDO V Consulting Unavailable AICHHOLZ, APPRENTICE JOCKEY SHANDRA Consulting Unavailable Aichholz, Shandra J Primary Care Provider MD Cecil Taylor Attending Provider [phone] Kendra Woodall Admitting Unavailable Shandra Roemro Primary Care Unavailable Kendra Woodall Attending Unavailable Cecil Taylor Attending Unavailable Cecil Taylor Admitting Unavailable Shandra Romero Primary Care Unavailable MAURO VALENCIA Admitting Unavailable MAURO VALENCIA Attending Unavailable REMIGIO HARRIS Referring Unavailable ETTA DAMIAN Consulting Unavailable HEATHER SHANDRA Attending Unavailable SHANDRA ROMERO Attending Unavailable SHANDRA ROMERO Attending Unavailable SHANDRA ROMERO Attending Unavailable Bartolohholcathi INDUCTION COORDINATION ENGINEER, Shandra Unavailable Thomas Ortez MD Primary Care Provider Heather INDUCTION COORDINATION ENGINEER, Shandra Unavailable Heather INDUCTION COORDINATION ENGINEER, Shandra Unavailable Medications Current Medications Medication Drug [...] procedure, # 2 cap(s), Refills(s) 0, Pharmacy: [facility]/pharmacy #[id number], 170, cm, 09/15/21 8:33:00 EDT, [...] 4 weeks and 2x a week after, [facility]/pharmacy #[id number], 170, cm, 09/15/21 8:33:00 EDT, [...] Name Value Interpretation Reference Range Facility Cult, [facility] 03-08-2024 Cult, Blood Specimen Description .BLOOD Special Requests r hand 0.5ml Culture NO GROWTH 5 DAYS Report Status FINAL 03/08/2024 [facility] Comment on above: Performed By: #### B CUL2 #### [facility] [address] [place], [place] [id number] Ham Smoker: Antwan Rice MD [facility] 03-08-2024 Cult,Blood Specimen Description .BLOOD Special Requests L HAND 0.5ML Culture NO GROWTH 5 DAYS Report Status FINAL 03/08/2024 [facility] Comment on above: Performed By: #### B C #### [place] [address] Ham Smoker: Antwan Rice MD Basic Metab w/rfx MGon 03-03 Anion gap [Moles/Vol] 16 mmol/L Normal 9-16 [facility] Comment on above: Performed By: #### M Christin PRCAL, CDP, BMPX #### [facility] [address] [place] [address] Ham Smoker: Antwan Rice MD Calcium [Mass/Vol] 9.1 mg/dL Normal 8.6-10.4 [facility] Comment on above: Performed By: #### Mandy G, PRCAL, CDP, BMPX #### [facility] [address] [place] [address] Ham Smoker: Antwan Rice MD Chloride [Moles/Vol] 102 mmol/L Normal 98-107 [facility] Comment on above: Performed By: #### M G, PRCAL, CDP, BMPX #### [facility] [address] [place] [address] Ham Smoker: Antwan Rice MD CO2 [Moles/Vol] 20 mmol/L Normal 20-31 [facility] Comment on above: Performed By: #### M G, PRCAL, CDP, BMPX #### [facility] [address] [place] [address] Ham Smoker: Antwan Rice MD Creatinine [Mass/Vol] 0.8 mg/dL Normal 0.50-0.90 [facility] Comment on above: Performed By: #### M G, PRCAL, CDP, BMPX #### [facility] [address] [place] [address] Ham Smoker: Antwan Rice MD GFR/1.73 sq M.predicted among non-blacks MDRD (S/P/Bld) [Vol rate/Area] 85 mL/min/{1.73_m2} Normal >60 [facility] Comment on above: Result Comment: These [...] #### M G, PRCAL, CDP, BMPX #### [facility] [address] [place] [address] Ham Smoker: Antwan Rice MD Glucose [Mass/Vol] 117 mg/dL High 74-99 [facility] Comment on above: Performed By: #### M G, PRCAL, CDP, BMPX #### [facility] [address] [place] [address] Ham Smoker: Antwan Rice MD Potassium [Moles/Vol] 3.5 mmol/L Low 3.7-5.3 [facility] Comment on above: Result Comment: SPEC IMEN SLIGHTLY HEMOLYZED, RESULTS MAY BE ADVERSELY AFFECTED. Performed By: #### M G, PRCAL, CDP, BMPX #### [facility] [address] [place] [address] Ham Smoker: Antwan Rice MD Sodium [Moles/Vol] 138 mmol/L Normal 136-145 [facility] Comment on above: Performed By: #### M G, PRCAL, CDP, BMPX #### [facility] [address] [place] [address] Ham Smoker: Antwan Rice MD Urea nitrogen [Mass/Vol] 17 mg/dL Normal 6-20 [facility] Comment on above: Performed By: #### Mandy Waller, PRCAL, CDP, BMPX #### [facility] [address] [place] [address] Ham Smoker: Antwan Rice MD CBC with Diffon 03-03-2024 Abs. Basophil <0.03 Normal 0.00-0.20 [facility] Comment on above: Performed By: #### M G, PRCAL, CDP, BMPX #### [facility] [address] [place] [address] Ham Smoker: Antwan Rice MD Abs. Eosinophil <0.03 Normal 0.00-0.44 [facility] Comment on above: Performed By: #### M G, PRCAL, CDP, BMPX #### [facility] [address] [place] [address] Ham Smoker: Antwan Rice MD Abs.Imm.Granulocyte 0.08 k/uL Normal 0.00-0.30 [facility] Comment on above: Performed By: #### M G, PRCAL, CDP, BMPX #### [facility] [address] [place] [address] Ham Smoker: Antwan Rice MD Abs.Neutrophil (Seg) 15.65 k/uL High 1.50-8.10 [facility] Comment on above: Performed By: #### M G, PRCAL, CDP, BMPX #### [facility] [address] [place] [address] Ham Smoker: Antwan Rice MD Basophils/100 WBC (Bld) 0 % Normal 0-2 [facility] Comment on above: Performed By: #### M G, PRCAL, CDP, BMPX #### [address] [address] Ham Smoker: Antwan Rice MD Eosinophils/100 WBC (Bld) 0 % Low 1-4 [facility] Comment on above: Performed By: #### M G, PRCAL, CDP, BMPX #### [facility] [address] [place] [address] Ham Smoker: Antwan Rice MD Erythrocyte distribution width (RBC) [Ratio] 13.7 % Normal 11.8-14.4 [facility] Comment on above: Performed By: #### M G, PRCAL, CDP, BMPX #### [facility] [address] [place] [address] Ham Smoker: Antwan Rice MD Hematocrit (Bld) [Volume fraction] 38.3 % Normal 36.3-47.1 [facility] Comment on above: Performed By: #### M G, PRCAL, CDP, BMPX #### [facility] [address] [place] [address] Ham Smoker: Antwan Rice MD Hemoglobin (Bld) [Mass/Vol] 12.6 g/dL Normal 11.9-15.1 [facility] Comment on above: Performed By: #### M G, PRCAL, CDP, BMPX #### [address] [address] Ham Smoker: Antwan Rice MD Immature granulocytes/100 WBC (Bld) 1 % High 0 [facility] Comment on above: Performed By: #### M G, PRCAL, CDP, BMPX #### [address] [address] Ham Smoker: Antwan Rice MD Lymphocytes (Bld) [#/Vol] 1.02 10*3/uL Low 1.10-3.70 [facility] Comment on above: Performed By: #### M G, PRCAL, CDP, BMPX #### [address] [address] Ham Smoker: Antwan Rice MD Lymphocytes/100 WBC (Bld) 6 % Low 24-43 [facility] Comment on above: Performed By: #### M G, PRCAL, CDP, BMPX #### [facility] [address] [place] [address] Ham Smoker: Antwan Rice MD MCH (RBC) [Entitic mass] 28.0 pg Normal 25.2-33.5 [facility] Comment on above: Performed By: #### M G, PRCAL, CDP, BMPX #### [facility] [address] [place] [address] Ham Smoker: Antwan Rice MD MCHC (RBC) [Mass/Vol] 32.9 g/dL Normal 28.4-34.8 [facility] Comment on above: Performed By: #### M G, PRCAL, CDP, BMPX #### [facility] [address] [place] [address] Ham Smoker: Antwan Rice MD MCV (RBC) [Entitic vol] 85.1 fL Normal 82.6-102.9 [facility] Comment on above: Performed By: #### M G, PRCAL, CDP, BMPX #### [address] [address] Ham Smoker: Antwan Rice MD Monocytes (Bld) [#/Vol] 0.36 10*3/uL Normal 0.10-1.20 [facility] Comment on above: Performed By: #### M G, PRCAL, CDP, BMPX #### [address] [address] Ham Smoker: Antwan Rice MD Monocytes/100 WBC (Bld) 2 % Low 3-12 [facility] Comment on above: Performed By: #### Mandy G, PRCAL, CDP, BMPX #### [address] [address] Ham Smoker: Antwan Rice MD Neutrophil (Seg) 91 % High 36-65 [facility] Comment on above: Performed By: #### M G, PRCAL, CDP, BMPX #### [address] [address] Ham Smoker: Antwan Rice MD NRBC Automated 0.0 per 100 WBC Normal 0.0 [facility] Comment on above: Performed By: #### M G, PRCAL, CDP, BMPX #### [facility] [address] [place] [address] Ham Smoker: Antwan Rice MD Platelet mean volume (Bld) [Entitic vol] 9.6 fL Normal 8.1-13.5 [facility] Comment on above: Performed By: #### M G, PRCAL, CDP, BMPX #### [facility] [address] [place] [address] Ham Smoker: Antwan Rice MD Platelets (Bld) [#/Vol] 287 10*3/uL Normal 138-453 [facility] Comment on above: Performed By: #### Mandy G, PRCAL, CDP, BMPX #### [facility] [place] [address] Ham Smoker: Antwan Rice MD RBC (Bld) [#/Vol] 4.50 10*6/uL Normal 3.95-5.11 [facility] Comment on above: Performed By: #### M G, PRCAL, CDP, BMPX #### [facility] [address] [place] [address] Ham Smoker: Antwan Rice MD WBC (Bld) [#/Vol] 17.1 10*3/uL High 3.5-11.3 [facility] Comment on above: Performed By: #### Mandy Waller, PRCAL, CDP, BMPX #### [facility] [address] [place] [address] Ham Smoker: Antwan Rice MD Comp Metabolic Pr/rfx MGon 0 - Albumin [Mass/Vol] 4.3 g/dL Normal 3.5-5.2 [facility] Comment on above: Performed By: #### C MPX, MG #### [facility] [address] [place] [address] Ham Smoker: Antwan Rice MD Albumin/Glob Ratio 1.0 Normal 1.0-2.5 [facility] Comment on above: Performed By: #### C MPX, MG #### [facility] [address] [place] [address] Ham Smoker: Antwan Rice MD Alkaline Phos 102 U/L Normal 35-104 [facility] Comment on above: Performed By: #### C MPX, MG #### [facility] [address] [place] [address] Ham Smoker: Antwan Rice MD ALT [Catalytic activity/Vol] 7 U/L Low 10-35 [facility] Comment on above: Performed By: #### C MPX, MG #### [address] [address] Ham Smoker: Antwan Rice MD Anion gap [Moles/Vol] 17 mmol/L High 9-16 [facility] Comment on above: Performed By: #### C MPX, MG #### [address] [address] Ham Smoker: Antwan Rice MD AST [Catalytic activity/Vol] 17 U/L Normal 10-35 [facility] Comment on above: Performed By: #### C MPX, MG #### [address] [address] Ham Smoker: Antwan Rice MD Bilirubin [Mass/Vol] 0.3 mg/dL Normal 0.00-1.20 [facility] Comment on above: Performed By: #### C MPX, MG #### [address] [address] Ham Smoker: Antwan Rice MD Calcium [Mass/Vol] 9.5 mg/dL Normal 8.6-10.4 [facility] Comment on above: Performed By: #### C MPX, MG #### [address] [address] Ham Smoker: Antwan Rice MD Chloride [Moles/Vol] 100 mmol/L Normal 98-107 [facility] Comment on above: Performed By: #### C MPX, MG #### [address] [address] Ham Smoker: Antwan Rice MD CO2 [Moles/Vol] 20 mmol/L Normal 20-31 [facility] Comment on above: Performed By: #### C MPX, MG #### [facility] [address] [place] [address] Ham Smoker: Antwan Rice MD Creatinine [Mass/Vol] 0.8 mg/dL Normal 0.50-0.90 [facility] Comment on above: Performed By: #### C MPX, MG #### [address] [address] Ham Smoker: Antwan Rice MD GFR/1.73 sq M.predicted among non-blacks MDRD (S/P/Bld) [Vol rate/Area] mL/min/{1.73_m2} Normal >60 [facility] Comment on above: Result Comment: These [...] Performed By: #### C MPX, MG #### [address] [address] Ham Smoker: Antwan Rice MD Glucose [Mass/Vol] 132 mg/dL High 74-99 [facility] Comment on above: Performed By: #### C MPX, MG #### [address] [address] Ham Smoker: Antwan Rice MD Potassium [Moles/Vol] 3.5 mmol/L Low 3.7-5.3 [facility] Comment on above: Performed By: #### C MPX, MG #### [address] [address] Ham Smoker: Antwan Rice MD Protein [Mass/Vol] 7.8 g/dL Normal 6.6-8.7 [facility] Comment on above: Performed By: #### C MPX, MG #### [facility] [place] [address] Ham Smoker: Antwan Rice MD Sodium [Moles/Vol] 137 mmol/L Normal 136-145 [facility] Comment on above: Performed By: #### C MPX, MG #### [facility] [address] [place] [address] Ham Smoker: Antwan Rice MD Urea nitrogen [Mass/Vol] 11 mg/dL Normal 6-20 [facility] Comment on above: Performed By: #### C MPX, MG #### [facility] [address] [place] [address] Ham Smoker: Antwan Rice MD Magnesiumon 03-03-2024 Magnesium [Mass/Vol] 2.4 mg/dL Normal 1.6-2.6 [facility] Comment on above: Performed By: #### M G, PRCAL, CDP, BMPX #### [facility] [address] [place] [address] Ham Smoker: Antwan Rice MD Magnesium [Mass/Vol] 2.4 mg/dL Normal 1.6-2.6 [facility] Comment on above: Performed By: #### C MPX, MG #### [facility] [address] [place] [address] Ham Smoker: Antwan Rice MD Procalcitoninon 03-03-2024 Procalcitonin 0.13 ng/mL High 0.00-0.09 [facility] Comment on above: Result Comment: Suspected [...] entered into the Change in Procalcitonin Calculator ([email or web address].Immunetrics) to determine the patient's Mortality Risk Prognosis In healthy neonates, plasma Procalcitonin (PCT) concentrations increase gradually after , reaching peak values at about 24 hours of age then decrease to normal values below 0.5 ng/mL by 48-72 hours of age. Performed By: #### M G, PRCAL, CDP, BMPX #### [facility] [place] [address] Ham Smoker: Antwan Rice MD Alanine aminotransferase [En zymatic activity/volume] in Serum or PlasmaOrdered By: Yayo Taylor on 12-06-2022 ALT [Catalytic activity/Vol] 12 U/L 7-52 [facility] Albumin [Mass/volume] in Ser um or Plasma by Bromocresol green (BCG) dye binding methoOrdered By: Yayo Taylor on 12-06-2022 Albumin BCG dye [Mass/Vol] 4.6 g/dL 3.5-5.7 [facility] Alkaline phosphatase [Enzyma tic activity/volume] in Serum or PlasmaOrdered By: Yayo Taylor on 12-06-2022 ALP [Catalytic activity/Vol] 79 U/L 34-104 [facility] Aspartate aminotransferase [ Enzymatic activity/volume] in Serum or PlasmaOrdered By: Yayo Taylor on 12-06-2022 AST [Catalytic activity/Vol] 15 U/L 13-39 [facility] Basophils Auto (Bld) [#/Vol] Ordered By: Yayo Taylor on 12-06-2022 Basophils (Bld) [#/Vol] 0.0 10*3/uL 0.0-0.2 [facility] Basophils/100 WBC Auto (Bld) Ordered By: Yayo Taylor on 12-06-2022 Basophils/100 WBC (Bld) 0.6 % . [facility] Bilirubin.total [Mass/volume ] in Serum or PlasmaOrdered By: Yayo Taylor on 12-06-2022 Bilirubin [Mass/Vol] 0.3 mg/dL 0.3-1.0 [facility] Calcium [Mass/volume] in Ser um or PlasmaOrdered By: Yayo Taylor on 12-06-2022 Calcium [Mass/Vol] 9.6 mg/dL 8.6-10.3 [facility] Carbon dioxide, total [Moles /volume] in Serum or PlasmaOrdered By: Yayo Taylor on 12-06-2022 CO2 [Moles/Vol] 29.0 mmol/L 21.0-31.0 [facility] Chloride [Moles/volume] in S dot or PlasmaOrdered By: Yayo Taylor on 12-06-2022 Chloride [Moles/Vol] 105 mmol/L 98-107 [facility] Complete Blood Count Auto Di ffon 12-06-2022 Basophils (Bld) [#/Vol] 0.0 10*3/uL Normal 0.0-0.2 [facility] Comment on above: Performed By: #### C BC, CMP, ESR #### [facility] [address] [place] [address] [place] Basophils/100 WBC (Bld) 0.6 % Normal . [facility] Comment on above: Performed By: #### C BC, CMP, ESR #### [facility] [address] [place] [address] [place] Eosinophils (Bld) [#/Vol] 0.2 10*3/uL Normal 0.0-0.45 [facility] Comment on above: Performed By: #### C BC, CMP, ESR #### [facility] [address] [place] [id number] [place] Eosinophils/100 WBC (Bld) 2.7 % Normal . [facility] Comment on above: Performed By: #### C BC, CMP, ESR #### [facility] [address] [place] [address] [place] Erythrocyte distribution width (RBC) [Ratio] 14.2 % Normal 11.9-15.3 [facility] Comment on above: Performed By: #### C BC, CMP, ESR #### [facility] [address] Hematocrit (Bld) [Volume fraction] 38.4 % Normal 34.0-46.4 [facility] Comment on above: Performed By: #### C BC, CMP, ESR #### [facility] [address] Hemoglobin (Bld) [Mass/Vol] 12.7 g/dL Normal 11.8-15.4 [facility] Comment on above: Performed By: #### C BC, CMP, ESR #### [facility] [address] Lymphocytes (Bld) [#/Vol] 2.4 10*3/uL Normal 1.00-4.8 [facility] Comment on above: Performed By: #### C BC, CMP, ESR #### [address] Lymphocytes/100 WBC (Bld) 32.4 % Normal . [facility] Comment on above: Performed By: #### C BC, CMP, ESR #### [address] MCH (RBC) [Entitic mass] 28.5 pg Normal 24.7-34.3 [facility] Comment on above: Performed By: #### C BC, CMP, ESR #### [address] MCV (RBC) [Entitic vol] 86.3 fL Normal 80-100 [facility] Comment on above: Performed By: #### C BC, CMP, ESR #### [address] Mean Corpuscular HGB Conc 33.0 g/dL Normal 32.0-35.0 [facility] Comment on above: Performed By: #### C BC, CMP, ESR #### [address] Monocytes (Bld) [#/Vol] 0.5 10*3/uL Normal 0.0-0.8 [facility] Comment on above: Performed By: #### C BC, CMP, ESR #### [facility] [address] [place] [address] [place] Monocytes/100 WBC (Bld) 6.3 % Normal . [facility] Comment on above: Performed By: #### C BC, CMP, ESR #### [facility] [address] [place] [address] [place] Neutrophils (Bld) [#/Vol] 4.3 10*3/uL Normal 1.8-7.7 [facility] Comment on above: Performed By: #### C BC, CMP, ESR #### [facility] [address] Neutrophils/100 WBC (Bld) 58.0 % Normal . [facility] Comment on above: Performed By: #### C BC, CMP, ESR #### [facility] [address] [place] [address] [place] NRBC% 0.0 /100{WBC} Normal 0-0.5 [facility] Comment on above: Performed By: #### C BC, CMP, ESR #### [facility] [address] [place] [address] [place] Platelet mean volume (Bld) [Entitic vol] 7.6 fL Normal 6.3-10.7 [facility] Comment on above: Performed By: #### C BC, CMP, ESR #### [facility] [address] [place] [address] [place] Platelets (Bld) [#/Vol] 368 10*3/uL Normal 150-450 [facility] Comment on above: Performed By: #### C BC, CMP, ESR #### [facility] [address] [place] [address] [place] RBC (Bld) [#/Vol] 4.45 10*6/uL Normal 3.60-5.00 [facility] Comment on above: Performed By: #### C BC, CMP, ESR #### [facility] [address] [place] [address] [place] WBC (Bld) [#/Vol] 7.4 10*3/uL Normal 3.8-11.6 [facility] Comment on above: Performed By: #### C BC, CMP, ESR #### [address] Comprehensive Metabolic Pane nico 12-06-2022 Albumin [Mass/Vol] 4.6 g/dL Normal 3.5-5.7 [facility] Comment on above: Performed By: #### C BC, CMP, ESR #### [address] Albumin/Globulin [Mass ratio] 1.9 {ratio} Normal [facility] Comment on above: Performed By: #### C BC, CMP, ESR #### [address] ALP [Catalytic activity/Vol] 79 U/L Normal 34-104 [facility] Comment on above: Result Comment: PERF ORMED BY: [place] [address] PATHOLOGIST USER EXPERIENCE MANAGER FELICIANO PIERCE M.D. Performed By: #### C BC, CMP, ESR #### [address] ALT [Catalytic activity/Vol] 12 U/L Normal 7-52 [facility] Comment on above: Performed By: #### C BC, CMP, ESR #### [address] Anion gap [Moles/Vol] 10.1 mmol/L Normal 6.0-15.0 [facility] Comment on above: Performed By: #### C BC, CMP, ESR #### [address] AST [Catalytic activity/Vol] 15 U/L Normal 13-39 [facility] Comment on above: Performed By: #### C BC, CMP, ESR #### [address] Bilirubin [Mass/Vol] 0.3 mg/dL Normal 0.3-1.0 [facility] Comment on above: Performed By: #### C BC, CMP, ESR #### [facility] [address] Calcium [Mass/Vol] 9.6 mg/dL Normal 8.6-10.3 [facility] Comment on above: Performed By: #### C BC, CMP, ESR #### [facility] [address] Chloride [Moles/Vol] 105 mmol/L Normal 98-107 [facility] Comment on above: Performed By: #### C BC, CMP, ESR #### [facility] [address] CO2 [Moles/Vol] 29.0 mmol/L Normal 21.0-31.0 [facility] Comment on above: Performed By: #### C BC, CMP, ESR #### [facility] [address] Creatinine [Mass/Vol] 0.89 mg/dL Normal 0.60-1.20 [facility] Comment on above: Performed By: #### C BC, CMP, ESR #### [facility] [address] [place] [address] [place] GFR/1.73 sq M.predicted MDRD (S/P/Bld) [Vol rate/Area] mL/min/{1.73_m2} [facility] Comment on above: Performed By: #### C BC, CMP, ESR #### [facility] [address] Globulin (S) [Mass/Vol] 2.4 g/dL Normal [facility] Comment on above: Performed By: #### C BC, CMP, ESR #### [facility] [address] Glucose [Mass/Vol] 83 mg/dL Normal 70-100 [facility] Comment on above: Result Comment: [facility] Glucose Reference Range is dependent on time and content of last meal. Glucose of more than 200 mg/dL in a nonstressed, ambulatory subject supports the diagnosis of Diabetes Mellitus. ADA recommended reference range Performed By: #### C BC, CMP, ESR #### [facility] [address] [place] [address] [place] Potassium [Moles/Vol] 4.1 mmol/L Normal 3.5-5.1 [facility] Comment on above: Performed By: #### C BC, CMP, ESR #### [facility] [address] [place] [address] [place] Protein [Mass/Vol] 7.0 g/dL Normal 6.4-8.9 [facility] Comment on above: Performed By: #### C BC, CMP, ESR #### [facility] [address] Sodium [Moles/Vol] 140 mmol/L Normal 136-145 [facility] Comment on above: Performed By: #### C BC, CMP, ESR #### [facility] [address] [place] [address] [place] Urea nitrogen [Mass/Vol] 15 mg/dL Normal 7-25 [facility] Comment on above: Performed By: #### C BC, CMP, ESR #### [facility] [address] Creatinine [Mass/volume] in Serum or PlasmaOrdered By: Yayo Taylor on 12-06-2022 Creatinine [Mass/Vol] 0.89 mg/dL 0.60-1.20 [facility] Eosinophils Auto (Bld) [#/Vo l]Ordered By: Yayo Taylor on 12-06-2022 Eosinophils (Bld) [#/Vol] 0.2 10*3/uL 0.0-0.45 [facility] Eosinophils/100 WBC Auto (Bl d)Ordered By: Yayo Taylor on 12-06-2022 Eosinophils/100 WBC (Bld) 2.7 % . [facility] Erythrocyte Sedimentation Ra cristela 12-06-2022 ESR (Bld) [Velocity] 27 mm/h Normal 0-29 [facility] Comment on above: Result Comment: PERF ORMED BY: [facility] [address] [place] [address] PATHOLOGIST USER EXPERIENCE MANAGER FELICIANO PIERCE M.D. Performed By: #### C BC, CMP, ESR #### [facility] [address] Erythrocyte distribution wid th Auto (RBC) [Ratio]Ordered By: Yayo Taylor on 12-06-2022 Erythrocyte distribution width (RBC) [Ratio] 14.2 % 11.9-15.3 [facility] Erythrocyte sedimentation ra te by Photometric methodOrdered By: Yayo Taylor on 12-06-2022 ESR Photometric method (Bld) [Velocity] 27 mm/hr 0-29 [facility] Globulin Calc (S) [Mass/Vol] Ordered By: Yayo Taylor on 12-06-2022 Globulin (S) [Mass/Vol] 2.4 g/dL [facility] Glucose [Mass/volume] in Ser um or PlasmaOrdered By: Yayo Taylor on 12-06-2022 Glucose [Mass/Vol] 83 mg/dL 70-100 [facility] Comment on above: ADA recommended refe rence rangeRandom Glucose Reference Range is dependent on time and content of last meal. Glucose of more than 200 mg/dL in a nonstressed, ambulatory subject supports the diagnosis of Diabetes Mellitus. Hematocrit Auto (Bld) [Volum e fraction]Ordered By: Yayo Taylor on 12-06-2022 Hematocrit (Bld) [Volume fraction] 38.4 % 34.0-46.4 [facility] Hemoglobin [Mass/volume] in BloodOrdered By: Yayo Taylor on 12-06-2022 Hemoglobin (Bld) [Mass/Vol] 12.7 g/dL 11.8-15.4 [facility] Leukocytes [#/volume] correc jin for nucleated erythrocytes in Blood by Automated counOrdered By: Yayo Taylor on 12-06-2022 WBC corrected for nucl RBC Auto (Bld) [#/Vol] 7.4 10*3/uL 3.8-11.6 [facility] Lymphocytes Auto (Bld) [#/Vo l]Ordered By: Yayo Taylor on 12-06-2022 Lymphocytes (Bld) [#/Vol] 2.4 10*3/uL 1.00-4.8 [facility] Lymphocytes/100 WBC Auto (Bl d)Ordered By: Yayo Taylor on 12-06-2022 Lymphocytes/100 WBC (Bld) 32.4 % . [facility] MCH Auto (RBC) [Entitic mass ]Ordered By: Yayo Taylor on 12-06-2022 MCH (RBC) [Entitic mass] 28.5 pg 24.7-34.3 [facility] MCHC Auto (RBC) [Mass/Vol]Or dered By: Yayo Taylor on 12-06-2022 MCHC (RBC) [Mass/Vol] 33.0 g/dL 32.0-35.0 [facility] MCV Auto (RBC) [Entitic vol] Ordered By: Yayo Taylor on 12-06-2022 MCV (RBC) [Entitic vol] 86.3 fL 80-100 [facility] Monocytes Auto (Bld) [#/Vol] Ordered By: Yayo Taylor on 12-06-2022 Monocytes (Bld) [#/Vol] 0.5 10*3/uL 0.0-0.8 [facility] Monocytes/100 WBC Auto (Bld) Ordered By: Yayo Taylor on 12-06-2022 Monocytes/100 WBC (Bld) 6.3 % . [facility] Neutrophils Auto (Bld) [#/Vo l]Ordered By: Yayo Taylor on 12-06-2022 Neutrophils (Bld) [#/Vol] 4.3 10*3/uL 1.8-7.7 [facility] Neutrophils/100 WBC Auto (Bl d)Ordered By: Yayo Taylor on 12-06-2022 Neutrophils/100 WBC (Bld) 58.0 % . [facility] No Panel InformationOrdered By: Yayo Taylor on 12-06-2022 Estimated GFR (CKD-EPI) > 60.0 mL/Min [facility] Creatinine Clearance (Chem N/A [facility] Nucleated erythrocytes [Pres ence] in Blood by Automated countOrdered By: Yayo Taylor on 12-06-2022 Nucleated RBC Auto Ql (Bld) 0.0 /100{WBC} 0-0.5 [facility] Platelet mean volume Auto (B ld) [Entitic vol]Ordered By: Yayo Taylor on 12-06-2022 Platelet mean volume (Bld) [Entitic vol] 7.6 fL 6.3-10.7 [facility] Platelets Auto (Bld) [#/Vol] Ordered By: Yayo Taylor on 12-06-2022 Platelets (Bld) [#/Vol] 368 10*3/uL 150-450 [facility] Potassium [Moles/volume] in Serum or PlasmaOrdered By: Yayo Taylor on 12-06-2022 Potassium [Moles/Vol] 4.1 mmol/L 3.5-5.1 [facility] Protein [Mass/volume] in Ser um or PlasmaOrdered By: Yayo Taylor on 12-06-2022 Protein [Mass/Vol] 7.0 g/dL 6.4-8.9 [facility] RBC Auto (Bld) [#/Vol]Ordere d By: Yayo Taylor on 12-06-2022 RBC (Bld) [#/Vol] 4.45 10*6/uL 3.60-5.00 [facility] Serum or plasma albumin/glob ulin mass ratioOrdered By: Yayo Taylor on 12-06-2022 Albumin/Globulin [Mass ratio] 1.9 {ratio} [facility] Serum or plasma anion gap de terminationOrdered By: Yayo Taylor on 12-06-2022 Anion gap [Moles/Vol] 10.1 mmol/L 6.0-15.0 [facility] Sodium [Moles/volume] in Ser um or PlasmaOrdered By: Yayo Taylor on 12-06-2022 Sodium [Moles/Vol] 140 mmol/L 136-145 [facility] Urea nitrogen [Mass/volume] in Serum or PlasmaOrdered By: Yayo Taylor on 12-06-2022 Urea nitrogen [Mass/Vol] 15 mg/dL 7-25 [facility] WBC Auto (Bld) [#/Vol]Ordere d By: Yayo Taylor on 12-06-2022 WBC (Bld) [#/Vol] 7.4 10*3/uL 3.8-11.6 [facility] Alanine aminotransferase [En zymatic activity/volume] in Serum or PlasmaOrdered By: Yayo Taylor on 10-03-2022 ALT [Catalytic activity/Vol] 11 U/L 7-52 [facility] Albumin [Mass/volume] in Ser um or Plasma by Bromocresol green (BCG) dye binding methoOrdered By: Yayo Taylor on 10-03-2022 Albumin BCG dye [Mass/Vol] 4.1 g/dL 3.5-5.7 [facility] Alkaline phosphatase [Enzyma tic activity/volume] in Serum or PlasmaOrdered By: Yayo Taylor on 10-03-2022 ALP [Catalytic activity/Vol] 84 U/L 34-104 [facility] Aspartate aminotransferase [ Enzymatic activity/volume] in Serum or PlasmaOrdered By: Yayo Taylor on 10-03-2022 AST [Catalytic activity/Vol] 16 U/L 13-39 [facility] Basophils Auto (Bld) [#/Vol] Ordered By: Yayo Taylor on 10-03-2022 Basophils (Bld) [#/Vol] 0.1 10*3/uL 0.0-0.2 [facility] Basophils/100 WBC Auto (Bld) Ordered By: Yayo Taylor on 10-03-2022 Basophils/100 WBC (Bld) 0.9 % . [facility] Bilirubin.total [Mass/volume ] in Serum or PlasmaOrdered By: Yayo Taylor on 10-03-2022 Bilirubin [Mass/Vol] 0.3 mg/dL 0.3-1.0 [facility] Calcium [Mass/volume] in Ser um or PlasmaOrdered By: Yayo Taylor on 10-03-2022 Calcium [Mass/Vol] 8.5 mg/dL 8.6-10.3 [facility] Carbon dioxide, total [Moles /volume] in Serum or PlasmaOrdered By: Yayo Taylor on 10-03-2022 CO2 [Moles/Vol] 27.2 mmol/L 21.0-31.0 [facility] Chloride [Moles/volume] in S dot or PlasmaOrdered By: Yayo Taylor on 10-03-2022 Chloride [Moles/Vol] 106 mmol/L 98-107 [facility] Complete Blood Count Auto Di ffon 10-03-2022 Basophils (Bld) [#/Vol] 0.1 10*3/uL Normal 0.0-0.2 [facility] Comment on above: Performed By: #### C BC, CMP, ESR #### [facility] [address] [place] [address] [place] Basophils/100 WBC (Bld) 0.9 % Normal . [facility] Comment on above: Performed By: #### C BC, CMP, ESR #### [facility] [address] [place] [address] [place] Eosinophils (Bld) [#/Vol] 0.4 10*3/uL Normal 0.0-0.45 [facility] Comment on above: Performed By: #### C BC, CMP, ESR #### [facility] [address] Eosinophils/100 WBC (Bld) 5.0 % Normal . [facility] Comment on above: Performed By: #### C BC, CMP, ESR #### [facility] [address] Erythrocyte distribution width (RBC) [Ratio] 14.7 % Normal 11.9-15.3 [facility] Comment on above: Performed By: #### C BC, CMP, ESR #### [facility] [address] Hematocrit (Bld) [Volume fraction] 36.3 % Normal 34.0-46.4 [facility] Comment on above: Performed By: #### C BC, CMP, ESR #### [facility] [address] Hemoglobin (Bld) [Mass/Vol] 12.3 g/dL Normal 11.8-15.4 [facility] Comment on above: Performed By: #### C BC, CMP, ESR #### [facility] [address] [place] [address] [place] Lymphocytes (Bld) [#/Vol] 2.1 10*3/uL Normal 1.00-4.8 [facility] Comment on above: Performed By: #### C BC, CMP, ESR #### [facility] [address] [place] [address] [place] Lymphocytes/100 WBC (Bld) 29.3 % Normal . [facility] Comment on above: Performed By: #### C BC, CMP, ESR #### [facility] [address] MCH (RBC) [Entitic mass] 29.4 pg Normal 24.7-34.3 [facility] Comment on above: Performed By: #### C BC, CMP, ESR #### [facility] [address] MCV (RBC) [Entitic vol] 86.4 fL Normal 80-100 [facility] Comment on above: Performed By: #### C BC, CMP, ESR #### [facility] [address] Mean Corpuscular HGB Conc 34.0 g/dL Normal 32.0-35.0 [facility] Comment on above: Performed By: #### C BC, CMP, ESR #### [facility] [address] [place] [address] [place] Monocytes (Bld) [#/Vol] 0.5 10*3/uL Normal 0.0-0.8 [facility] Comment on above: Performed By: #### C BC, CMP, ESR #### [facility] [address] [place] [address] [place] Monocytes/100 WBC (Bld) 7.3 % Normal . [facility] Comment on above: Performed By: #### C BC, CMP, ESR #### [facility] [address] [place] [address] [place] Neutrophils (Bld) [#/Vol] 4.1 10*3/uL Normal 1.8-7.7 [facility] Comment on above: Performed By: #### C BC, CMP, ESR #### [facility] [address] [place] [address] [place] Neutrophils/100 WBC (Bld) 57.5 % Normal . [facility] Comment on above: Performed By: #### C BC, CMP, ESR #### [facility] [address] NRBC% 0.3 /100{WBC} Normal 0-0.5 [facility] Comment on above: Performed By: #### C BC, CMP, ESR #### [address] Platelet mean volume (Bld) [Entitic vol] 7.9 fL Normal 6.3-10.7 [facility] Comment on above: Performed By: #### C BC, CMP, ESR #### [address] Platelets (Bld) [#/Vol] 369 10*3/uL Normal 150-450 [facility] Comment on above: Performed By: #### C BC, CMP, ESR #### [address] RBC (Bld) [#/Vol] 4.20 10*6/uL Normal 3.60-5.00 [facility] Comment on above: Performed By: #### C BC, CMP, ESR #### [address] WBC (Bld) [#/Vol] 7.1 10*3/uL Normal 3.8-11.6 [facility] Comment on above: Performed By: #### C BC, CMP, ESR #### [address] Comprehensive Metabolic Pane nico 10-03-2022 Albumin [Mass/Vol] 4.1 g/dL Normal 3.5-5.7 [facility] Comment on above: Performed By: #### C BC, CMP, ESR #### [address] Albumin/Globulin [Mass ratio] 1.6 {ratio} Normal [facility] Comment on above: Performed By: #### C BC, CMP, ESR #### [facility] [address] ALP [Catalytic activity/Vol] 84 U/L Normal 34-104 [facility] Comment on above: Result Comment: PERF ORMED BY: [place] [address] PATHOLOGIST USER EXPERIENCE MANAGER FELICIANO PIERCE M.D. Performed By: #### C BC, CMP, ESR #### [facility] [address] ALT [Catalytic activity/Vol] 11 U/L Normal 7-52 [facility] Comment on above: Performed By: #### C BC, CMP, ESR #### [address] Anion gap [Moles/Vol] 10.7 mmol/L Normal 6.0-15.0 [facility] Comment on above: Performed By: #### C BC, CMP, ESR #### [address] AST [Catalytic activity/Vol] 16 U/L Normal 13-39 [facility] Comment on above: Performed By: #### C BC, CMP, ESR #### [address] Bilirubin [Mass/Vol] 0.3 mg/dL Normal 0.3-1.0 [facility] Comment on above: Performed By: #### C BC, CMP, ESR #### [address] Calcium [Mass/Vol] 8.5 mg/dL Low 8.6-10.3 [facility] Comment on above: Performed By: #### C BC, CMP, ESR #### [facility] [address] [place] [address] Chloride [Moles/Vol] 106 mmol/L Normal 98-107 [facility] Comment on above: Performed By: #### C BC, CMP, ESR #### [facility] [address] [place] [address] [place] CO2 [Moles/Vol] 27.2 mmol/L Normal 21.0-31.0 [facility] Comment on above: Performed By: #### C ELLIOTT CMP, ESR #### [facility] [address] Creatinine [Mass/Vol] 0.88 mg/dL Normal 0.60-1.20 [facility] Comment on above: Performed By: #### C ELLIOTT, CMP, ESR #### [facility] [address] [place] [address] [place] GFR/1.73 sq M.predicted MDRD (S/P/Bld) [Vol rate/Area] mL/min/{1.73_m2} Normal [facility] Comment on above: Performed By: #### C ELLIOTT CMP, ESR #### [facility] [address] Globulin (S) [Mass/Vol] 2.6 g/dL Normal [facility] Comment on above: Performed By: #### C ELLIOTT CMP, ESR #### [facility] [address] Glucose [Mass/Vol] 98 mg/dL Normal 70-100 [facility] Comment on above: Result Comment: [facility] Glucose Reference Range is dependent on time and content of last meal. Glucose of more than 200 mg/dL in a nonstressed, ambulatory subject supports the diagnosis of Diabetes Mellitus. ADA recommended reference range Performed By: #### C ELLIOTT CMP, ESR #### [facility] [address] [place] [address] [place] Potassium [Moles/Vol] 3.9 mmol/L Normal 3.5-5.1 [facility] Comment on above: Performed By: #### C ELLIOTT CMP, ESR #### [facility] [address] [place] [id number] [place] Protein [Mass/Vol] 6.7 g/dL Normal 6.4-8.9 [facility] Comment on above: Performed By: #### C BC, CMP, ESR #### [facility] [address] [place] [address] [place] Sodium [Moles/Vol] 140 mmol/L Normal 136-145 [facility] Comment on above: Performed By: #### C BC, CMP, ESR #### [facility] [address] Urea nitrogen [Mass/Vol] 20 mg/dL Normal 7-25 [facility] Comment on above: Performed By: #### C BC, CMP, ESR #### [facility] [address] [place] [address] Creatinine [Mass/volume] in Serum or PlasmaOrdered By: Yayo Taylor on 10-03-2022 Creatinine [Mass/Vol] 0.88 mg/dL 0.60-1.20 [facility] Eosinophils Auto (Bld) [#/Vo l]Ordered By: Yayo Taylor on 10-03-2022 Eosinophils (Bld) [#/Vol] 0.4 10*3/uL 0.0-0.45 [facility] Eosinophils/100 WBC Auto (Bl d)Ordered By: Yayo Taylor on 10-03-2022 Eosinophils/100 WBC (Bld) 5.0 % . [facility] Erythrocyte Sedimentation Ra cristela 10-03-2022 ESR (Bld) [Velocity] 22 mm/h Normal 0-29 [facility] Comment on above: Result Comment: PERF ORMED BY: [place] [address] PATHOLOGIST USER EXPERIENCE MANAGER FELICIANO PIERCE M.D. Performed By: #### C BC, CMP, ESR #### [facility] [address] [place] [address] Erythrocyte distribution wid th Auto (RBC) [Ratio]Ordered By: Yayo Taylor on 10-03-2022 Erythrocyte distribution width (RBC) [Ratio] 14.7 % 11.9-15.3 [facility] Erythrocyte sedimentation ra te by Photometric methodOrdered By: Yayo Taylor on 10-03-2022 ESR Photometric method (Bld) [Velocity] 22 mm/hr 0-29 [facility] Globulin Calc (S) [Mass/Vol] Ordered By: Yayo Taylor on 10-03-2022 Globulin (S) [Mass/Vol] 2.6 g/dL [facility] Glucose [Mass/volume] in Ser um or PlasmaOrdered By: Yayo Taylor on 10-03-2022 Glucose [Mass/Vol] 98 mg/dL 70-100 [facility] Comment on above: ADA recommended refe rence rangeRandom Glucose Reference Range is dependent on time and content of last meal. Glucose of more than 200 mg/dL in a nonstressed, ambulatory subject supports the diagnosis of Diabetes Mellitus. Hematocrit Auto (Bld) [Volum e fraction]Ordered By: Yayo Taylor on 10-03-2022 Hematocrit (Bld) [Volume fraction] 36.3 % 34.0-46.4 [facility] Hemoglobin [Mass/volume] in BloodOrdered By: Yayo Taylor on 10-03-2022 Hemoglobin (Bld) [Mass/Vol] 12.3 g/dL 11.8-15.4 [facility] Leukocytes [#/volume] correc jin for nucleated erythrocytes in Blood by Automated counOrdered By: Yayo Taylor on 10-03-2022 WBC corrected for nucl RBC Auto (Bld) [#/Vol] 7.1 10*3/uL 3.8-11.6 [facility] Lymphocytes Auto (Bld) [#/Vo l]Ordered By: Yayo Taylor on 10-03-2022 Lymphocytes (Bld) [#/Vol] 2.1 10*3/uL 1.00-4.8 [facility] Lymphocytes/100 WBC Auto (Bl d)Ordered By: Yayo Taylor on 10-03-2022 Lymphocytes/100 WBC (Bld) 29.3 % . [facility] MCH Auto (RBC) [Entitic mass ]Ordered By: Yayo Taylor on 10-03-2022 MCH (RBC) [Entitic mass] 29.4 pg 24.7-34.3 [facility] MCHC Auto (RBC) [Mass/Vol]Or dered By: Yayo Taylor on 10-03-2022 MCHC (RBC) [Mass/Vol] 34.0 g/dL 32.0-35.0 [facility] MCV Auto (RBC) [Entitic vol] Ordered By: Yayo Taylor on 10-03-2022 MCV (RBC) [Entitic vol] 86.4 fL 80-100 [facility] Monocytes Auto (Bld) [#/Vol] Ordered By: Yayo Taylor on 10-03-2022 Monocytes (Bld) [#/Vol] 0.5 10*3/uL 0.0-0.8 [facility] Monocytes/100 WBC Auto (Bld) Ordered By: aYyo Taylor on 10-03-2022 Monocytes/100 WBC (Bld) 7.3 % . [facility] Neutrophils Auto (Bld) [#/Vo l]Ordered By: Yayo Taylor on 10-03-2022 Neutrophils (Bld) [#/Vol] 4.1 10*3/uL 1.8-7.7 [facility] Neutrophils/100 WBC Auto (Bl d)Ordered By: Yayo Taylor on 10-03-2022 Neutrophils/100 WBC (Bld) 57.5 % . [facility] No Panel InformationOrdered By: Yayo Taylor on 10-03-2022 Estimated GFR (CKD-EPI) > 60.0 mL/Min [facility] Creatinine Clearance (Chem N/A [facility] Nucleated erythrocytes [Pres ence] in Blood by Automated countOrdered By: Yayo Taylor on 10-03-2022 Nucleated RBC Auto Ql (Bld) 0.3 /100{WBC} 0-0.5 [facility] Platelet mean volume Auto (B ld) [Entitic vol]Ordered By: Yayo Taylor on 10-03-2022 Platelet mean volume (Bld) [Entitic vol] 7.9 fL 6.3-10.7 [facility] Platelets Auto (Bld) [#/Vol] Ordered By: Yayo Taylor on 10-03-2022 Platelets (Bld) [#/Vol] 369 10*3/uL 150-450 [facility] Potassium [Moles/volume] in Serum or PlasmaOrdered By: Yayo Taylor on 10-03-2022 Potassium [Moles/Vol] 3.9 mmol/L 3.5-5.1 [facility] Protein [Mass/volume] in Ser um or PlasmaOrdered By: Yayo Taylor on 10-03-2022 Protein [Mass/Vol] 6.7 g/dL 6.4-8.9 [facility] RBC Auto (Bld) [#/Vol]Ordere d By: Yayo Taylor on 10-03-2022 RBC (Bld) [#/Vol] 4.20 10*6/uL 3.60-5.00 [facility] Serum or plasma albumin/glob ulin mass ratioOrdered By: Yayo Taylor on 10-03-2022 Albumin/Globulin [Mass ratio] 1.6 {ratio} [facility] Serum or plasma anion gap de terminationOrdered By: Yayo Taylor on 10-03-2022 Anion gap [Moles/Vol] 10.7 mmol/L 6.0-15.0 [facility] Sodium [Moles/volume] in Ser um or PlasmaOrdered By: Yayo Taylor on 10-03-2022 Sodium [Moles/Vol] 140 mmol/L 136-145 [facility] Urea nitrogen [Mass/volume] in Serum or PlasmaOrdered By: Yayo Taylor on 10-03-2022 Urea nitrogen [Mass/Vol] 20 mg/dL 7-25 [facility] WBC Auto (Bld) [#/Vol]Ordere d By: Yayo Taylor on 10-03-2022 WBC (Bld) [#/Vol] 7.1 10*3/uL 3.8-11.6 [facility] US BREAST RIGHT LIMITEDon US BREAST RIGHT LIMITED Patient: MONET JONES Exam Date: 08/18/2022 : 1970 Gender:F Ordering : TONI ROMERO CNP Admission #: [id number] Family : Order #: [id number] CLICK HERE TO VIEW EXAM RADIOLOGY REPORT [...] MD on 08/18/2022 at 09:07 Normal [facility] CBC AUTO DIFFon 06-07-2022 BASO # 0.0 103/ul Normal 0.0-0.[address] [facility] Comment on above: Performed By: #### A ST, ALT, LIPID #### [facility] [address] [place] [address] Dr. Luis Daniel Sin Basophils/100 WBC (Bld) 0.4 % Normal 0.2-2.0 [facility] Comment on above: Performed By: #### A ST, ALT, LIPID #### [facility] [address] [place] [address] Dr. Luis Daniel Sin EO # 0.2 103/ul Normal 0.0-0.[address] [facility] Comment on above: Performed By: #### A ST, ALT, LIPID #### [facility] [address] [place] [address] [address] Luis Daniel Sin Eosinophils/100 WBC (Bld) 2.3 % Normal 0.9-7.[address] [facility] Comment on above: Performed By: #### A ST, ALT, LIPID #### [facility] [address] [address] [address] Luis Daniel Sin Erythrocyte distribution width (RBC) [Ratio] 13.7 % Normal 11.0-15.[address] [facility] Comment on above: Performed By: #### A ST, ALT, LIPID #### [facility] [address] [place] [address] Dr. Luis Daniel Sin Hematocrit (Bld) [Volume fraction] 37.3 % Normal 36.0-48.[address] [facility] Comment on above: Performed By: #### A ST, ALT, LIPID #### [facility] [address] [place] [address] [address] Luis Daniel Sin Hemoglobin (Bld) [Mass/Vol] 12.3 g/dL Normal 12.0-16.[address] [facility] Comment on above: Performed By: #### A ST, ALT, LIPID #### [facility] [address] [place] [address] Dr. Luis Daniel Sin IG # 0.02 10e3/ul Normal 0.00-0.[address] [facility] Comment on above: Performed By: #### A ST, ALT, LIPID #### [facility] [address] [place] [address] Dr. Luis Daniel Sin IG % 0.2 % Normal 0.0-0.[address] [facility] Comment on above: Performed By: #### A ST, ALT, LIPID #### [facility] [address] [place] [address] Dr. Luis Daniel Sin LYMPH # 2.9 103/ul Normal 1.2-3.[address] [facility] Comment on above: Performed By: #### A ST, ALT, LIPID #### [facility] [address] [place] [address] Dr. Luis Daniel Sin Lymphocytes/100 WBC (Bld) 31.8 % Normal 20.5-60.[address] [facility] Comment on above: Performed By: #### A ST, ALT, LIPID #### [facility] [address] [place] [address] Dr. Luis Daniel Sin MANUAL DIFF REQ NO Normal [facility] Comment on above: Performed By: #### A ST, ALT, LIPID #### [facility] [address] [place] [address] Dr. Luis Daniel Sin MCH (RBC) [Entitic mass] 28.1 pg Normal 26.7-34.[address] [facility] Comment on above: Performed By: #### A ST, ALT, LIPID #### [facility] [address] [place] [address] Dr. Luis Daniel Sin MCHC (RBC) [Mass/Vol] 33.0 g/dL Normal 29.9-35.[address] [facility] Comment on above: Performed By: #### A ST, ALT, LIPID #### [facility] [address] [place] [address] Dr. Luis Daniel Sin MCV (RBC) [Entitic vol] 85.2 fL Normal 81.0-99.0 [facility] Comment on above: Performed By: #### A ST, ALT, LIPID #### [facility] [address] [place] [address] Dr. Luis Daniel Sin MONO # 0.8 103/ul Normal 0.3-0.[address] [facility] Comment on above: Performed By: #### A ST, ALT, LIPID #### [facility] [address] [place] [address] Dr. Luis Daniel Sin Monocytes/100 WBC (Bld) 8.4 % Normal 1.7-12.0 [facility] Comment on above: Performed By: #### A ST, ALT, LIPID #### [facility] [address] [place] [address] Dr. Luis Daniel Sin NEUT # 5.1 103/ul Normal 1.4-6.[address] [facility] Comment on above: Performed By: #### A ST, ALT, LIPID #### [facility] [address] [place] [address] Dr. Luis Daniel Sin Neutrophils/100 WBC (Bld) 56.9 % Normal 43.0-75.[address] [facility] Comment on above: Performed By: #### A ST, ALT, LIPID #### [facility] [address] [place] [address] Dr. Luis Daniel Sin Platelet mean volume (Bld) [Entitic vol] 9.0 fL Critically low 9.5-13.[address] [facility] Comment on above: Performed By: #### A ST, ALT, LIPID #### [facility] [address] [place] [address] Dr. Luis Daniel Sin PLT 353 103/ul Normal 150-450 [facility] Comment on above: Performed By: #### A ST, ALT, LIPID #### [facility] [address] [address] [address] Luis Daniel Sin RBC 4.38 106/ul Normal 4.20-5.[address] [facility] Comment on above: Performed By: #### A ST, ALT, LIPID #### [facility] [address] [address] [address] Luis Daniel Sin WBC 9.0 103/ul Normal 4.0-11.[address] [facility] Comment on above: Performed By: #### A ST, ALT, LIPID #### [facility] [address] [address] [address] Luis Daniel Sin PROF 14(COMP METB)on 022 Albumin [Mass/Vol] 3.9 g/dL Normal 3.4-5.0 [facility] Comment on above: Performed By: #### C MP #### [facility] [address] [place] [address] Dr. Luis Daniel Sin Albumin/Globulin [Mass ratio] 1.0 {ratio} Normal [facility] Comment on above: Performed By: #### C MP #### [facility] [address] [address] [address] Luis Daniel Sin ALP [Catalytic activity/Vol] 94 U/L Normal 46-[address] [facility] Comment on above: Performed By: #### C MP #### [facility] [address] [place] [address] Dr. Luis Daniel Sin ALT [Catalytic activity/Vol] 18 U/L Normal 14-[address] [facility] Comment on above: Performed By: #### C MP #### [facility] [address] [place] [address] Dr. Luis Daniel Sin Anion gap [Moles/Vol] 12.2 mmol/L Normal [facility] Comment on above: Performed By: #### C MP #### [facility] [address] [place] [address] Dr. Luis Daniel Sin AST [Catalytic activity/Vol] 19 U/L Normal 15-[address] [facility] Comment on above: Performed By: #### C MP #### [facility] [address] [address] [address] Luis Daniel Sin Bilirubin [Mass/Vol] 0.3 mg/dL Normal 0.2-1.[address] [facility] Comment on above: Performed By: #### C MP #### [facility] [address] [address] [address] Luis Daniel Sin Calcium [Mass/Vol] 9.3 mg/dL Normal 8.5-10.1 [facility] Comment on above: Performed By: #### C MP #### [facility] [address] [address] [address] Luis Daniel Sin Chloride [Moles/Vol] 102 mmol/L Normal 98-[address] [facility] Comment on above: Performed By: #### C MP #### [facility] [address] [place] [address] Dr. Luis Daniel Sin CO2 [Moles/Vol] 29.5 mmol/L Normal 21.0-32.0 [facility] Comment on above: Performed By: #### C MP #### [facility] [address] [place] [address] Dr. Luis Daniel Sin Creatinine [Mass/Vol] 0.93 mg/dL Normal 0.55-1.[address] [facility] Comment on above: Performed By: #### C MP #### [facility] [address] [place] [address] Dr. Luis Daniel Sin EGFR-AF [place]IZ[place] >60 Normal >=60 [facility] Comment on above: Performed By: #### C MP #### [facility] [address] [place] [address] Dr. Luis Daniel Sin EGFR-NON AF [place]IZ[place] >60 Normal >=[address] [facility] Comment on above: Performed By: #### C MP #### [facility] [address] [place] [address] Dr. Luis Daniel Sin Globulin (S) [Mass/Vol] 3.8 g/dL Normal [facility] Comment on above: Performed By: #### C MP #### [facility] [address] [place] [address] Dr. Luis Daniel Sin Glucose [Mass/Vol] 100 mg/dL Normal 74-106 [facility] Comment on above: Performed By: #### C MP #### [facility] [address] [address] [address] Luis Daniel Sin Potassium [Moles/Vol] 3.7 mmol/L Normal 3.5-5.[address] [facility] Comment on above: Performed By: #### C MP #### [facility] [address] [address] [address] Luis Daniel Sin Protein [Mass/Vol] 7.7 g/dL Normal 6.4-8.2 [facility] Comment on above: Performed By: #### C MP #### [facility] [address] [place] [address] Dr. Luis Daniel iSn Sodium [Moles/Vol] 140 mmol/L Normal 136-145 [facility] Comment on above: Performed By: #### C MP #### [facility] [address] [place] [address] Dr. Luis Daniel Sin Urea nitrogen [Mass/Vol] 18.0 mg/dL Normal 7.0-18.[address] [facility] Comment on above: Performed By: #### C MP #### [facility] [address] [place] [address] Dr. Luis Daniel Sin Urea nitrogen/Creatinine [Mass ratio] 19.4 mg/mg Normal [facility] Comment on above: Performed By: #### C MP #### [facility] [address] [place] [address] Dr. Luis Daniel Sin SED RATE [facility] 2021 SED RATE 54 mm/hr Critically high <=[address] [facility] Comment on above: Performed By: #### A ST, ALT, LIPID #### [facility] [address] [place] [address] Dr. Luis Daniel Sin CBC AUTO DIFFon 02-25-2022 BASO # 0.1 103/ul Normal 0.0-0.[address] [facility] Comment on above: Performed By: #### C BC #### [facility] [address] [place] [address] Dr. Luis Daniel Sin Basophils/100 WBC (Bld) 0.7 % Normal 0.2-2.0 [facility] Comment on above: Performed By: #### C BC #### [facility] [address] [place] [address] Dr. Luis Daniel Sin EO # 0.2 103/ul Normal 0.0-0.[address] [facility] Comment on above: Performed By: #### C BC #### [facility] [address] [place] [address] Dr. Luis Daniel Sin Eosinophils/100 WBC (Bld) 2.5 % Normal 0.9-7.[address] [facility] Comment on above: Performed By: #### C BC #### [facility] [address] [place] [address] Dr. Luis Daniel Sin Erythrocyte distribution width (RBC) [Ratio] 14.2 % Normal 11.0-15.[address] [facility] Comment on above: Performed By: #### C BC #### [facility] [address] [place] [address] Dr. Luis Daniel Sin Hematocrit (Bld) [Volume fraction] 41.1 % Normal 36.0-48.[address] [facility] Comment on above: Performed By: #### C BC #### [facility] [address] [place] [address] Dr. Luis Daniel Sin Hemoglobin (Bld) [Mass/Vol] 13.5 g/dL Normal 12.0-16.[address] [facility] Comment on above: Performed By: #### C BC #### [facility] [address] [place] [address] Dr. Luis Daniel Sin IG # 0.03 10e3/ul Normal 0.00-0.[address] [facility] Comment on above: Performed By: #### C BC #### [facility] [address] [place] [address] Dr. Luis Daniel Sin IG % 0.4 % Normal 0.0-0.[address] [facility] Comment on above: Performed By: #### C BC #### [facility] [address] [place] [address] Dr. Luis Daniel Sin LYMPH # 2.2 103/ul Normal 1.2-3.[address] [facility] Comment on above: Performed By: #### C BC #### [facility] [address] [place] [address] Dr. Luis Daniel Sin Lymphocytes/100 WBC (Bld) 26.0 % Normal 20.5-60.[address] [facility] Comment on above: Performed By: #### C BC #### [facility] [address] [place] [address] Dr. Luis Daniel Sin MANUAL DIFF REQ NO Normal [facility] Comment on above: Performed By: #### C BC #### [facility] [address] [place] [address] Dr. Luis Daniel Sin MCH (RBC) [Entitic mass] 28.6 pg Normal 26.7-34.[address] [facility] Comment on above: Performed By: #### C BC #### [facility] [address] [place] [address] Dr. Luis Daniel Sin MCHC (RBC) [Mass/Vol] 32.8 g/dL Normal 29.9-35.[address] [facility] Comment on above: Performed By: #### C BC #### [facility] [address] [place] [address] Dr. Luis Daniel Sin MCV (RBC) [Entitic vol] 87.1 fL Normal 81.0-99.0 [facility] Comment on above: Performed By: #### C BC #### [facility] [address] [place] [address] Dr. Luis Daniel Sin MONO # 0.6 103/ul Normal 0.3-0.[address] [facility] Comment on above: Performed By: #### C BC #### [facility] [address] [place] [address] Dr. Luis Daniel Sin Monocytes/100 WBC (Bld) 6.8 % Normal 1.7-12.0 [facility] Comment on above: Performed By: #### C BC #### [facility] [address] [place] [address] Dr. Luis Daniel Sin NEUT # 5.3 103/ul Normal 1.4-6.[address] [facility] Comment on above: Performed By: #### C BC #### [facility] [address] [place] [address] Dr. Luis Daniel Sin Neutrophils/100 WBC (Bld) 63.6 % Normal 43.0-75.[address] [facility] Comment on above: Performed By: #### C BC #### [facility] [address] [place] [address] Dr. Luis Daniel Sin Platelet mean volume (Bld) [Entitic vol] 9.5 fL Normal 9.5-13.[address] [facility] Comment on above: Performed By: #### C BC #### [facility] [address] [place] [address] Dr. Luis Daniel Sin PLT 364 103/ul Normal 150-450 [facility] Comment on above: Performed By: #### C BC #### [facility] [address] [place] [address] Dr. Luis Daniel Sin RBC 4.72 106/ul Normal 4.20-5.40 [facility] Comment on above: Performed By: #### C BC #### [facility] [address] [place] [address] Dr. Luis Daniel Sin WBC 8.3 103/ul Normal 4.0-11.0 [facility] Comment on above: Performed By: #### C BC #### [facility] [address] [place] [address] [address] CHEST WO [...] TODD JACOBS Date: 2022-02-25 18:07 Normal [facility] PROF 14(COMP METB)on 022 Albumin [Mass/Vol] 3.6 g/dL Normal 3.4-5.0 [facility] Comment on above: Performed By: #### C MP #### [facility] [address] [place] [address] Dr. Luis Daniel Sin Albumin/Globulin [Mass ratio] 0.9 {ratio} Normal [facility] Comment on above: Performed By: #### C MP #### [facility] [address] [place] [address] Dr. Luis Daniel Sin ALP [Catalytic activity/Vol] 113 U/L Normal 46-[address] [facility] Comment on above: Performed By: #### C MP #### [facility] [address] [place] [address] Dr. Luis Daniel Sin ALT [Catalytic activity/Vol] 17 U/L Normal 14-[address] [facility] Comment on above: Performed By: #### C MP #### [facility] [address] [address] [address] Luis Daniel Sin Anion gap [Moles/Vol] 9.7 mmol/L Normal [facility] Comment on above: Performed By: #### C MP #### [facility] [address] [place] [address] Dr. Luis Daniel Sin AST [Catalytic activity/Vol] 11 U/L Critically low 15-[address] [facility] Comment on above: Performed By: #### C MP #### [facility] [address] [address] [address] Luis Daniel Sin Bilirubin [Mass/Vol] 0.3 mg/dL Normal 0.2-1.[address] [facility] Comment on above: Performed By: #### C MP #### [facility] [address] [address] [address] Luis Daniel Sin Calcium [Mass/Vol] 8.9 mg/dL Normal 8.5-10.1 [facility] Comment on above: Performed By: #### C MP #### [facility] [address] [address] [address] Luis Daniel Sin Chloride [Moles/Vol] 104 mmol/L Normal 98-[address] [facility] Comment on above: Performed By: #### C MP #### [facility] [address] [place] [address] Dr. Luis Daniel Sin CO2 [Moles/Vol] 26.9 mmol/L Normal 21.0-32.0 [facility] Comment on above: Performed By: #### C MP #### [facility] [address] [place] [address] Dr. Luis Daniel Sin Creatinine [Mass/Vol] 0.96 mg/dL Normal 0.55-1.[address] [facility] Comment on above: Performed By: #### C MP #### [facility] [address] [address] [address] Luis Daniel Sin EGFR-AF [place]IZ[place] >60 Normal >=60 [facility] Comment on above: Performed By: #### C MP #### [facility] [address] [address] [address] Luis Daniel Sin EGFR-NON AF [place]IZ[place] >60 Normal >=[address] [facility] Comment on above: Performed By: #### C MP #### [facility] [address] [place] [address] Dr. Luis Daniel Sin Globulin (S) [Mass/Vol] 4.0 g/dL Normal [facility] Comment on above: Performed By: #### C MP #### [facility] [address] [address] [address] Luis Daniel Sin Glucose [Mass/Vol] 99 mg/dL Normal 74-106 [facility] Comment on above: Performed By: #### C MP #### [facility] [address] [address] [address] Luis Daniel Sin Potassium [Moles/Vol] 3.6 mmol/L Normal 3.5-5.[address] [facility] Comment on above: Performed By: #### C MP #### [facility] [address] [address] [address] Luis Daniel Sin Protein [Mass/Vol] 7.6 g/dL Normal 6.4-8.2 [facility] Comment on above: Performed By: #### C MP #### [facility] [address] [address] [address] Luis Daniel Sin Sodium [Moles/Vol] 137 mmol/L Normal 136-145 [facility] Comment on above: Performed By: #### C MP #### [facility] [address] [address] [address] Luis Daniel Sin Urea nitrogen [Mass/Vol] 12.0 mg/dL Normal 7.0-18.[address] [facility] Comment on above: Performed By: #### C MP #### [facility] [address] [address] [address] Luis Daniel Sin Urea nitrogen/Creatinine [Mass ratio] 12.5 mg/mg Normal [facility] Comment on above: Performed By: #### C MP #### [facility] [address] [address] [address] Luis Daniel Sin SED RATE [facility] 2021 SED RATE 46 mm/hr Critically high <=[address] [facility] Comment on above: Performed By: #### A ST, ALT, LIPID #### [facility] [address] [address] [address] Luis Daniel Sin LIPID PROFILEon 02-01-2022 CHOL-HDL RATIO NORM SEE BELOW Normal [facility] Comment on above: Result Comment: 3.3 - 4.4 LOW RISK 4.4 - 7.1 AVERAGE RISK 7.1 - 11.0 MODERATE RISK >11.0 HIGH RISK Performed By: #### A ST, ALT, LIPID #### [facility] [address] [address] [address] Luis Daniel Sin Cholesterol [Mass/Vol] 250 mg/dL Critically high <=[address] [facility] Comment on above: Performed By: #### A ST, ALT, LIPID #### [facility] [address] [address] [address] Luis Daniel Sin Cholesterol in HDL [Mass/Vol] 44 mg/dL Normal 40-[address] [facility] Comment on above: Performed By: #### A ST, ALT, LIPID #### [facility] [address] [address] [address] Luis Daniel Sin Cholesterol in LDL [Mass/Vol] 162.0 mg/dL Normal [facility] Comment on above: Performed By: #### A ST, ALT, LIPID #### [facility] [address] [address] [address] Luis Daniel Sin Cholesterol.total/Inna sterol in HDL [Mass ratio] 5.7 {ratio} Normal [facility] Comment on above: Performed By: #### A ST, ALT, LIPID #### [facility] [address] [address] [address] Luis Daniel Sin HDL NORMAL > or = 60 mg/dl - LOW CARDIOVASCULAR RISK <40 mg/dl - HIGH CARDIOVASCULAR RISK Normal [facility] Comment on above: Performed By: #### A ST, ALT, LIPID #### [facility] [address] [address] [address] Luis Daniel Sin LDL CALC NORMAL SEE BELOW Normal [facility] Comment on above: Result Comment: <100 mg/dl OPTIMAL 100 - 129 mg/dl NEAR OR ABOVE OPTIMAL 130 - 159 mg/dl BORDERLINE HIGH 160 - 189 mg/dl HIGH >190 mg/dl VERY HIGH Performed By: #### A ST, ALT, LIPID #### [facility] [address] [address] [address] Luis Daniel Sin Triglyceride [Mass/Vol] 220 mg/dL Critically high <=150 [facility] Comment on above: Performed By: #### A ST, ALT, LIPID #### [facility] [address] [place], [place] [address] Dr. Luis Daniel Sin VLDL CALC 44.0 mg/dL Normal [facility] Comment on above: Performed By: #### A ST, ALT, LIPID #### [facility] [address] [place], [place] [address] Dr. Luis Daniel Sin SGOTon 02-01-2022 AST [Catalytic activity/Vol] 17 U/L Normal 15-[address] [facility] Comment on above: Performed By: #### A ST, ALT, LIPID #### [facility] [address] [place], [place] [address] Dr. Luis Daniel Sin SGPTon 02-01-2022 ALT [Catalytic activity/Vol] 21 U/L Normal 14-[address] [facility] Comment on above: Performed By: #### A ST, ALT, LIPID #### [facility] [id number] Luis Daniel Sin Patient Correspondenceon Patient Correspondence [phone] [id number] Normal [facility] Provider Letteron 12-31-2021 Provider Letter December 31, 2021 MONET JONES [address] [place] [address] MONET JONES N 1970 Dear Monet , This letter is to inform you the providers of [facility], [facility] will no longer be responsible for your routine medical care due to non compliance. Emergency care only will be provided for the thirty (30) days following this letter. During this time period we suggest that you find another physician for your medical needs. A listing of area physicians can be found on [facility]'s website at [email or web address] or you may contact your health plan. We will be glad to forward your records to your new physician as long as we receive a signed release of records form. Sincerely, Dr. Vickie Montiel MD [facility] [place] [address] Normal [facility] LIPID PROFILEon 12-13-2021 CHOL-HDL RATIO NORM SEE BELOW Normal [facility] Comment on above: Result Comment: 3.3 - 4.4 LOW RISK 4.4 - 7.1 AVERAGE RISK 7.1 - 11.0 MODERATE RISK >11.0 HIGH RISK Performed By: #### A ST, ALT, LIPID #### [facility] [address] [address] [address] Luis Daniel Sin Cholesterol [Mass/Vol] 233 mg/dL Critically high <=[address] [facility] Comment on above: Performed By: #### A ST, ALT, LIPID #### [facility] [address] [address] [address] Luis Daniel Sin Cholesterol in HDL [Mass/Vol] 52 mg/dL Normal 40-[address] [facility] Comment on above: Performed By: #### A ST, ALT, LIPID #### [facility] [address] [address] [address] Luis Daniel Sin Cholesterol in LDL [Mass/Vol] 142.6 mg/dL Normal [facility] Comment on above: Performed By: #### A ST, ALT, LIPID #### [facility] [address] [address] [address] Luis Daniel Sin Cholesterol.total/Inna sterol in HDL [Mass ratio] 4.5 {ratio} Normal [facility] Comment on above: Performed By: #### A ST, ALT, LIPID #### [facility] [address] [address] [address] Luis Daniel Sin HDL NORMAL > or = 60 mg/dl - LOW CARDIOVASCULAR RISK <40 mg/dl - HIGH CARDIOVASCULAR RISK Normal [facility] Comment on above: Performed By: #### A ST, ALT, LIPID #### [facility] [address] [address] [address] Luis Daniel Sin LDL CALC NORMAL SEE BELOW Normal [facility] [facility] Comment on above: Result Comment: <100 mg/dl OPTIMAL 100 - 129 mg/dl NEAR OR ABOVE OPTIMAL 130 - 159 mg/dl BORDERLINE HIGH 160 - 189 mg/dl HIGH >190 mg/dl VERY HIGH Performed By: #### A ST, ALT, LIPID #### [facility] [address] [address] [address] Luis Daniel Sin Triglyceride [Mass/Vol] 192 mg/dL Critically high <=[address] [facility] Comment on above: Performed By: #### A ST, ALT, LIPID #### [facility] [address] [address] [address] Luis Daniel Sin VLDL CALC 38.4 mg/dL Normal [facility] Comment on above: Performed By: #### A ST, ALT, LIPID #### [facility] [address] [address] [address] Luis Daniel Sin SGOTon 12-13-2021 AST [Catalytic activity/Vol] 12 U/L Critically low 15-[address] [facility] Comment on above: Performed By: #### A ST, ALT, LIPID #### [facility] [address] [address] [address] Luis Daniel Sin SGPTon 12-13-2021 ALT [Catalytic activity/Vol] 23 U/L Normal 14-[address] [facility] Comment on above: Performed By: #### A ST, ALT, LIPID #### [facility] [address] [address] [address] Luis Daniel Sin Patient Correspondenceon Patient Correspondence [id number] [facility]#1.00CD:127 Normal [facility] Patient Letter FTon 2021 Patient Letter [facility] November 10, 2021 MONET JONES N [address] [place] [address] MONET JONES N 1970 Dear Monet, I [...] MD [facility] [address] [place] [address] [facility] Provider Letteron 10-19-2021 Provider Letter October 19, 2021 MONET JONES [address] [place] [address] MONET JOENS 1970 Dear Jodi , During review of your medical record we noticed you missed your 09/27/21 Cystoscopy appointment. We have attempted to reach you on 09/28/21, 10/05/21, and 10/19/21 to reschedule your procedure with no success. Please call our office today to reschedule this appointment. Sincerely, Dr. Vickie Montiel MD [facility] [address] [place] [address] [facility] RAD - CT Reporton 09-21-2021 RAD - CT Report [id number] [id number]#[id number]:127 [facility] Reminderson 09-21-2021 Reminders --- From: Suzan Collins MA To: EU - Prior Authorization; Sent: 09/15/2021 12:38:12 EDT Show up: 09/16/2021 07:00:00 EDT Subject: sending urine for UA Due Date/Time: 09/16/2021 12:00:00 EDT Reminder/Recall Urine sent to [facility] [place] [facility] Per last encounter: Patient denies [...] urine for UA UA was sent to [facility] for micro. I don't see the results in the pt's chart. But when they do get in chart, GURU needs to review them. Scratch that. They were sent to [facility]. Will forward to GURU. [facility] Coding Summary.on 09-17-2021 Coding Summary. [id number] 2XDp9eHo+PGhlYWQ+P N2LIBIhX78iaRXoeB7 SH8iOJD2NAHTFTDGXJ Z5GYM1xfLW2CHudE4G ybiAv EqdisFFpKS80XDv4HY E8sCfvMWuzuF9ddFOe B2l6SbJlIL12lV12VL onBVGbKjD1MmXndhro bWFy I1xnAdIhsROjZhz+PH RhYmxlIHdpZHRoPScx CUAqHsNvtYrgRF2gSx 9yZGVyLWNvbGxhcHNl OiBj w5qrHCEwUXmiJD0chS gmY0PovCW0XWTql9v9 Mo87uBK+DUElTDQ1nE xhQVnmn453WyPpu9yo IDM3 nEJsMUblLAX7M39ot1 W2YZWmOJKePAW2jYX9 mN6okGklbxewL8FwaV IuWrQ6DLG1cUCrjJ7d bGln tbryiJ1fPmb+Q09ESU 8DYAVRCK6NIkk9I7Vs PjwvdHI+FE86AKGcWO 21aKGyxEQyu2fuwSl3 JzEw TKBjAUO6eQzhXDmrq9 OvHXGsW82kvKNun4B8 IGNvbGxhcHNlOyBlbX S5oE2vLHtbreuwl4jn dzsn Zcvpj7uxih51sI54W9 6xEVoqGFFtKWC8QJHi YENkdPzlpm4bhW1eVu 8+QXlsg3crf5uhjDc0 IjIw DEAfzuDkeUobHRR6v9 OpAm04B7ZboRzyb5Lc Dax9zt61yAAse1E0hF H1IAreESOakE5iWNqr ZnQ6 QCKeObYmxH53wICbUL ykWz4kiTlvcCqgJY9e MYYyydcrWMXmaX6oFM OafRHjwGytTN0gIQKk bjtm y215RyMrSNL7OBPewJ ZsV9MsqZ9rKzQaZXWg QAAmV2YavYDvZSeqQ0 92ZCeoQjM6KLFrbfOj Y2Fs DKDhcBvvXrO9w9X6Kk 7Aq6XulrzcQTQ4CPhv PQJsJmFeJzVgNyB4D7 CtWrl4HXRveKnjAS4d J3Bh VMOzwvvlvwfnlOI9OG VaASWbzV65vHIxLYhv Nm2bh6A8z757PZMmQG NclS97Vi8zjRigTCFj dCBU bP1urqewh0nzavewOq LwTAIhGEq5CSr5BSYf cAkoHyAkQEK4NuJ6RU W0yMClbZ0hoSwgfljl dG9w Oyc+K98fjS7zKWH7JP T4vyonYPPystPsNU38 FN18B3GfEyietMCrlS U+APKssjOulSquRD6s YmFj l2uom8YrFOywC4RbLU MnQRlzGpx0AZEvJMJ2 tRM7jL1iOWRrZMovw0 F9rOI7Y3SirjMtfx1y b2xs GTRrDLvwI03oxJBhr2 A9HHDhnAK7NHSxlSrl PeNmsM56Hcn+PGNvbG fre3LuPljbv3ldb3bc dGg9 IjMwJSIgdmFsaWduPS E8r7TeNt98J71kBLvb ZHRoPSIxNSUiIHZhbG ymmm3cvF7tKo6+PGNv bCB3 mTW5hE2wVCMxIpU9IO hoA771LeWjqDLqZuic r4tja0unwTg5LiWoAX RjqlJjhCscJTS0f4In Lz48 L56oZIkxAQEcDBObAO WiXDEfwBcsds9emK6i Ii8+UK5xf1ykcx71qN 48dHI+EVQvGUD5jTgp PSdw RXXfcJ8hMNycPkE1KY RjQsDizL22oQZsXTkh Ue0xeZoyrClcTM2mDA Qkvzjsb907NmVih9oz IDEw iDAfUDizVOX6L59lt2 C8AUGjCHZbIZE0zBF4 iU0huZbdvqoonEWteR sgdmVydGljYWwtYWxp Z246 IHRvcDsnPlBhdGllbn HmDsKdODb7I0GfUjf6 ZERbhJrvCD1bsXZvAZ ovTp8doGjokKtiZV2g NTBp cmyww688JpLof2gnWX NsuTWePCbgLHZ7C48s r6R4QEOiRLXjMDB4tH R3zL1arMvsmqyrsNOq dDsg dmVydGljYWwtYWxpZ2 46IHRvcDsnPkJpcnRo XLYzhWP5GR91AT36iZ Cic9D7bJK7P9MkTYUq bmct hnvadIB2DWCuXGMfeO 63Ug1xrHfaWm4dWCCi WAI6LEVteAXhJ4HorD 0oDpFpARIeUFPfK2Gy eHQt JTloU448KRwtWdE3AZ MkplBaK5CiQYAihOgz LpG0g1R6Wl5VB6T0NS 62IE38gADrw4W1hDN7 J3Bh OCJvgkgfgidlgUI0WW TgWXAghO60St2vpNcw Mp6eUBElMTG2DYUcpM ViG1ZwcR6jCkAuEREh MDAw Q4ChmVUuFPlyO542LA lvBmB6MHMlwlOgQ4Jj TNYecTwuDtU6g7X8Tc 4LGHc7OK85DT83lEHk c3R5 zBB1U8NxYZEbwnskmz krdKT5AKMtYVKpmW15 Dj7sbCrbZi0tMWJsIB G8SZLzrUMhS0TlgJ1m OiAj NKGtHWTiH0JnrPNdXW qfR038QMpvYcH2ICYj zlWpL0GoUQHojVdfFo W3x1E9Iq3CDMLwIR78 IFR5 gDA6AI85EM14A9CjEi wvdGFibGU+PHRhYmxl IHdpZHRoPScxMDAlJy OzbRtqGG1aIx2zKNMy LWNv iFplxDGlVcUzc5kyNR ZqMXojOZ2yrJhpI3Yd vFR1TIKmc1a6Yh67A1 2jY8JjkYF+PGNvbCB3 aWR0 hR2bXvHmAtX3TJgqF5 84RcBzoHNrQtyni1yy l6ymbZx0YxU5ZOKqsr UjcYqbJXE9g6DdJo43 Y29s IHdpZHRoPSIxNSUiIH OgcZefcp1fzM9dDn9+ AMZppVG3jKK1tQ6tPh HmVkM2VQalL858JnXs cCIv Wqmhq8wqa5azoMg6Jv IwJSIgdmFsaWduPSJ0 n7LxMg03I9AxcBopc9 AnDxt7re13gUSvf1G1 bGU9 U0GeZOQbixjedPXjbA zvHJ0xFWLpsbshUYAi gV1rHSIlW3t5IjXaIy X7CIbyG9SijdS0ECUi cHQg PEavHUU9G54kd2L0GH NwXDBiPLC2fCM4iO6i bGlnbjogbGVmdDsgdm CkrMlqXDpnWCmzO736 IHRv yPqbSWCxgM1hVPYjnM MkcUfkYJ5bPGOkjdpa PmsLDjBYKFXBL9OAUS fVPB10V7YbJgy5FAJm dHls OS9acRStLPhxNf9xpO sjnGpnUN7yALFrmruz BZItaR6tPXPkdTZeyB gpAN7iUFZbrbjay423 OiAx OYW6DGGvnRIzM3NcbN 1dXyZiJVWcAQCrD2Ti jMOxZTtdD356LVpxVi K6LNIrcbWhN7FaFANv aWdu JcA4u6N3Da2dPn9pLn 5bIVinYS62TE14jQJu t8E9rSO9G5AlKRHrfq scpycydDE2ATNdTPUa aW47 qVCvNLmrPy4kv2Q9x1 58BQHbLGYygP34Su4r lQlqCOGsiYKEoS4smj krp3mofkroOvDgXKQp MDt0 QJp5ZVOjtHuwDaEsPN D0QqU3PRO9sZMhnN0x pKtzbsedxS1vHfy+ND mpEDVamnP3Q5QqYqn7 ZCBz bKtoKF1hfISyZJllPz 2csOvabRefAN4dFQHs dmhrMYIqqY3pZATrxY SwnYymKT7zEWVgxmqb b250 NzKdVVQ9ZLSbcPIaB6 XbiJ1sDaRzAMYwYJXz M8VuyVDrQGbcO731GS cdVlN9YKVsvtFnO3Wj LWFs kMcnTbB0b5K8Bo0VDL 4duOW5U7WeDca5CYCc pQvlQL6hdYJqQXndYa 9acWwasVbtKR2vWUGs bjtw TSIihJ0mPPXehXKpoV ueSM8yECDflhviz895 BbUgZOZ0OTIyoKWjK9 MlhM2tTuSfDDYlFBEz O3Rl cZItGAtcS272FEgvFp D0VJHpuvPgB5NyNQDb tJslSnD4p0Y4Vw0BKO OaIQEujHEfLeV7A2Fc Pjwv dHI+YE23KTCdCF61dK JulUHnp5psjPt4GcGn IDFbFUO8sSziBKtfj8 LyFZTrT05xfAOnw1Q6 IGNv nVnsqHTgPrIzmJD8yL 5nXXyxxecow9ftqgkx Erljl5btmp67rH75Z4 9sIHdpZHRoPSIzMCUi IHZh rQhkih7yxR6xSd1+PG RlrAG5tRJ9tC9eQrEt WyI8KDcuU530GePhgV LxPskiu9wsn1igqMu2 IjIw KOAamiRrrHzcGSG4b3 VvCo18V28jUDoaPPLi PSIyMCUiIHZhbGlnbj 3jnF6fOb3+KK9uk5ju cm91 fO60fJY+MEGhPJK5hW yfRMjvTVMnxB8yPEqx XbE3ZQIgDeAiaJ13iR ExQSsiFt3usBnihQdg MC4w ZEOrfwyft832KdTun2 xkIDEwcHQgVGltZXM7 L92cf5W7UXPxSBZeVA D4bSY5vN5cjIevcfet bGVm dDsgdmVydGljYWwtYW acZ561UNNunUsqScIt tTIpD0zqvrNKGY7yWs wvdGQ+NYWqIKA2qJrf PSdw SRBdxV9nPPUpO0s6Gx NxNuC4DAdmI3SvuaZ7 IGJvbGQgMTBwdCBUaW 5gainsj3ggwzicPxKe MDAw BRw2HXs3SZBzzXptIr YrPNA9MvO8EJP7vNNn fZ3svIkpqkxgwV0cCk c+RklOOjwvdGQ+PHRk IHN0 eSgxQUdzGWEwwR5eNY MwX1w6PhGvWhK4OHti E9HruqV0GPXneUCeOT NexLYQuH2eiyyro5ps cjog ZvRpUDJnJJy7ZRi5SJ FmhHrxKcBxSNT0XbS4 CBB9oKJbeS8mtYielm mofD3nBqx+TVJOOjwv dGQ+ VFFfECQ2tTijEDhkHU PjkS0pTURxF0e3BsYk UbX2QGbqW0GhoeQ2HX ZkkKOvDEGhmAXTzN1o cztj h7cibfdcHxTrPPEkDS k6UOm2IGMteAxfCwMn ZWD6KsR2HIK2xISznK 4fsTyzdwjpkF5gMxi+ UGF5 HLI1UK15LZ94T1RpYi wvdGFibGU+PHRhYmxl IHdpZHRoPScxMDAlJy BspIegYO0mGl7jAEVl LWNv bGxh (more content not included)... Normal [facility] Physician Referralon 022 Physician Referral [id number]#[id number]:127 Normal [facility] Pre-Certification Formon Pre-Certification Form [id number]#[id number]:127 Normal [facility] Patient Educationon 09-16-19 22 Patient Education [...] these instructions at home: Medicines ? Take qpoe-jbj-qaonbpv and prescription medicines only as told by [...] the blood stops without treatment. ? Take mhee-rem-xgxkssk and prescription medicines only as told by [...] Reviewed: 07/08/2017 Else[employer] Patient Education ? 2019 [employer] Normal [facility] RAD - CT Reporton 09-15-2021 RAD - CT Report [id number]#[id number]:127 Normal [facility] URINALYSISOrdered By: Shahla buckner on 09-15-2021 [...] PM) Normal Negative [facility] UA Auto SS Tarnov.plasma/Tarnov. RBC (Bld) [Mass ratio] 0-3 /HPF Normal 0-3/HPF [facility] UA A uto SS Mucus Ql (Urine sed) Trace (09/15/21 12:36 PM) Normal [facility] UA Auto SS Nitrite Ql (U) Negative (09/15/21 12:36 PM) Normal Negative [facility] UA Auto SS pH (U) 5.5 *NA* (09/15/21 12:36 PM) Invalid Interpretation Code 5.0 - 9.0 [facility] UA Auto SS Protein (U) [Mass/Vol] Negative (09/15/21 12:36 PM) Normal Negative [facility] UA Auto SS Specific gravity (U) [Rel density] 1.025 *NA* (09/15/21 12:36 PM) Invalid Interpretation Code 1.005 - 1.030 [facility] UA Auto SS UA Spec Desc Clean Catch (09/15/21 12:36 PM) Normal [facility] UA Auto SS Urobilinogen Qn (U) 0.8886308 {Edelmira'U}/dL Normal 0.0 - 1.0 EU/dL [facility] UA Auto SS WBC Auto Ql (U) Negative (09/15/21 12:36 PM) Normal Negative [facility] UA Auto SS WBC LM.HPF (Urine sed) [#/Area] 0-5 /HPF Normal 0-5/HPF [facility] UA Auto SS Urinalysison 09-15-2021 Bilirubin Ql (U) 2+ Abnormal Negative [facility] Comment on above: Performed By: #### 1 [id number] #### [facility] [address] [place] [address] Calcium oxalate crystals LM Ql (Urine sed) Present Normal [facility] Comment on above: Performed By: #### 1 [id number] #### [facility] [address] [place] [address] Clarity (U) CLEAR Normal Clear [facility] Comment on above: Performed By: #### 1 [id number] #### [facility] [address] [place] [address] Color (U) YELLOW Normal Yellow [facility] Comment on above: Performed By: #### 1 [id number] #### [facility] [address] [place] [address] Epithelial cells.squamous LM.HPF (Urine sed) [#/Area] 0-2 Normal 0-2 [facility] Comment on above: Performed By: #### 1 [id number] #### [facility] [address] [place] [address] Glucose Test strip (U) [Mass/Vol] Negative Normal Negative [facility] Comment on above: Performed By: #### 1 [id number] #### [facility] [address] [place] [address] Hemoglobin Ql (U) 3+ Abnormal Negative [facility] Comment on above: Performed By: #### 1 [id number] #### [facility] [address] [place] [address] Ketones (U) [Mass/Vol] Negative Normal Negative [facility] Comment on above: Performed By: #### 1 [id number] #### [facility] [address] [place] [address] Tarnov.plasma/Tarnov. RBC (Bld) [Mass ratio] 0-3 Normal 0-3 [facility] Comment on above: Performed By: #### 1 [id number] #### [facility] [address] [place] [address] Mucus Ql (Urine sed) TRACE Normal [facility] Comment on above: Performed By: #### 1 [id number] #### [facility] [address] [place] [address] Nitrite Ql (U) Negative Normal Negative [facility] Comment on above: Performed By: #### 1 [id number] #### [facility] [address] [place] [address] pH (U) 5.5 [pH] Invalid Interpretation Code 5.0-9.0 [facility] Comment on above: Performed By: #### 1 [id number] #### [facility] [address] [place] [address] Protein (U) [Mass/Vol] Negative Normal Negative [facility] Comment on above: Performed By: #### 1 [id number] #### [facility] [address] [place] [address] Specific gravity (U) [Rel density] 1.025 Invalid Interpretation Code 1.005-1.030 [facility] Comment on above: Performed By: #### 1 [id number] #### [facility] [address] [place] [address] Type of Urine collection method Clean Catch Normal [facility] Comment on above: Performed By: #### 1 [id number] #### [facility] [address] [place] [address] Urobilinogen Qn (U) 0.2 {Edelmira'U}/dL Normal 0.0-1.0 [facility] Comment on above: Performed By: #### 1 [id number] #### [facility] [address] [place] [address] WBC Auto Ql (U) Negative Normal Negative [facility] Comment on above: Performed By: #### 1 [id number] #### [facility] [address] [place] [address] WBC LM.HPF (Urine sed) [#/Area] 0-5 Normal 0-5 [facility] Comment on above: Performed By: #### 1 [id number] #### [facility] [address] [place] [address] CHEST W CONon 09-07-2021 CT CHEST [...] nonspecific, of doubtful clinical significance Normal [facility] Fullscreen Quick Testingon 2020 Result Negative [employer] Other Vital Signs Date Time Vital Sign Value Performing Clinician Facility 03-25-2024 14:39-0400 Body height 170.2 cm Shandra Heather INDUCTION COORDINATION ENGINEER Work Phone: [facility] 03-25-2024 14:39-0400 Body mass index (BMI) [Ratio] 31.48 kg/m2 Shandra Heather INDUCTION COORDINATION ENGINEER Work Phone: [facility] 03-25-2024 14:39-0400 Body temperature 98.49 [degF] Shandra Heather INDUCTION COORDINATION ENGINEER Work Phone: [facility] 03-25-2024 14:39-0400 Body weight 91.17 kg Shandra Heather INDUCTION COORDINATION ENGINEER Work Phone: [facility] 03-25-2024 14:39-0400 Diastolic blood pressure 78 mm[Hg] Shandra Heather INDUCTION COORDINATION ENGINEER Work Phone: [facility] 03-25-2024 14:39-0400 Heart rate 84 /min Shandra Heather INDUCTION COORDINATION ENGINEER Work Phone: [facility] 03-25-2024 14:39-0400 Respiratory rate 19 /min Shandra Joneholz INDUCTION COORDINATION ENGINEER Work Phone: [facility] 03-25-2024 14:39-0400 SaO2% (BldA) [Mass fraction] 98 % Shandra Bartolohholz INDUCTION COORDINATION ENGINEER Work Phone: [facility] 03-25-2024 14:39-0400 Systolic blood pressure 112 mm[Hg] Shandra Aichholz INDUCTION COORDINATION ENGINEER Work Phone: [facility] 03-07-2024 10:45-0400 Body height 170.2 cm Shandra Aichholz INDUCTION COORDINATION ENGINEER Work Phone: [facility] 03-07-2024 10:45-0400 Body mass index (BMI) [Ratio] 31.83 kg/m2 Shandra Aichholz INDUCTION COORDINATION ENGINEER Work Phone: [facility] 03-07-2024 10:45-0400 Body temperature 98.49 [degF] Shandra Bartolohholz INDUCTION COORDINATION ENGINEER Work Phone: [facility] 03-07-2024 10:45-0400 Body weight 92.17 kg Shandra Aichholz INDUCTION COORDINATION ENGINEER Work Phone: [facility] 03-07-2024 10:45-0400 Diastolic blood pressure 66 mm[Hg] Shandra Bartolohholz INDUCTION COORDINATION ENGINEER Work Phone: [facility] 03-07-2024 10:45-0400 Heart rate 73 /min Shandra Aichholz INDUCTION COORDINATION ENGINEER Work Phone: [facility] 03-07-2024 10:45-0400 Respiratory rate 19 /min Shandra Aichholz INDUCTION COORDINATION ENGINEER Work Phone: [facility] 03-07-2024 10:45-0400 SaO2% (BldA) [Mass fraction] 93 % Shandra Bartolohholz INDUCTION COORDINATION ENGINEER Work Phone: [facility] 03-07-2024 10:45-0400 Systolic blood pressure 118 mm[Hg] Shandra Aichholz INDUCTION COORDINATION ENGINEER Work Phone: [facility] 09-15-2021 08:30-0400 Blood Pressure Location Vickie Lue [facility] 09-15-2021 08:30-0400 Diastolic blood pressure 80 mm[Hg] Vickie Lue [facility] 09-15-2021 08:30-0400 Systolic blood pressure 124 mm[Hg] Vickie Lue [facility] [email or web address] 04-14-2021 20:30-0400 Body height 170.18 cm Cecy Chiang Other [employer] Other 04-14-2021 20:30-0400 Body mass index (BMI) [Ratio] 32.1 kg/m2 Cecy Chiang Other [employer] Other 04-14-2021 20:30-0400 Body temperature 97.5 [degF] Cecy Chiang Other [employer] Other 04-14-2021 20:30-0400 Body weight 92.99 kg Cecy Chiang Other [employer] Other 04-14-2021 20:30-0400 Respiratory rate 18 /min Cecy Chiang Other [employer] Other 04-14-2021 20:30-0400 SaO2% (BldA) [Mass fraction] 96 % Cecy Chiang Other [employer] Other Encounters Encounter Date Encounter Type Care Provider Facility Start: 03-25-2024 End: 03-25-2024 Office outpatient visit 15 minutes Shandra Aichholz INDUCTION COORDINATION ENGINEER Work Phone: [facility] Comment on above: Peritonsillar absces s (Primary Dx); Obesity due to excess calories without serious comorbidity, unspecified class; Current smoker; Colon cancer screening; Rheumatoid arthritis of multiple sites with negative rheumatoid factor (CMS/HCC); Encounter for screening mammogram for malignant neoplasm of breast Start: 03-25-2024 End: 03-25-2024 Bamboo flowsheet Shandra Aichholz INDUCTION COORDINATION ENGINEER Work Phone: [facility] Start: 03-25-2024 End: 03-25-2024 Bamboo flowsheet Shandra Aichholz INDUCTION COORDINATION ENGINEER Work Phone: [facility] Start: 03-25-2024 End: 03-25-2024 ambulatory SHANDRA AICHHOLZ Not Available Start: 03-07-2024 End: 03-07-2024 Bamboo flowsheet Shandra Aichholz INDUCTION COORDINATION ENGINEER Work Phone: [facility] Start: 03-07-2024 End: 03-07-2024 Bamboo flowsheet Shandra Aichholz INDUCTION COORDINATION ENGINEER Work Phone: [facility] Start: 03-07-2024 End: 03-07-2024 Office outpatient visit 25 minutes Shandra Aichholz INDUCTION COORDINATION ENGINEER Work Phone: [facility] Comment on above: Peritonsillar absces s (Primary Dx); Encounter for screening mammogram for malignant neoplasm of breast; Immunocompromised state due to drug therapy (CMS/HCC); Rheumatoid arthritis of multiple sites with negative rheumatoid factor (CMS/HCC) Start: 03-07-2024 End: 03-07-2024 ambulatory SHANDRA AICHHOLZ Not Available Start: 03-02-2024 End: 03-03-2024 ambulatory MAURO Zion [facility] Start: 12-11-2023 End: 12-11-2023 ambulatory SHANDRA AICHHOLZ Not Available Start: 09-07-2023 End: 09-07-2023 ambulatory SHANDRA AICHHOLZ Not Available Start: 12-06-2022 End: 12-06-2022 ambulatory Kendra Renteriabrianacameron Facility:[facility] Start: 12-06-2022 End: 12-06-2022 ambulatory Shandra Delia Kooz Work Phone: [facility] Work Phone: Start: 12-06-2022 End: 12-06-2022 Patient encounter procedure Shandra Joneholz Work Phone: [facility] [address] Work Phone: Start: 10-03-2022 End: 10-03-2022 ambulatory Cecil Taylor Facility:[facility] Start: 10-03-2022 End: 10-03-2022 ambulatory Shandra Delia Aichholz Work Phone: [facility] Work Phone: Start: 10-03-2022 End: 10-03-2022 Patient encounter procedure Shandrakathya Kooz Work Phone: [facility] [address] Work Phone: Start: 08-18-2022 End: 08-19-2022 ambulatory APPRENTICE JOCKEY SHANDRA AICHHOLZ Facility:[facility] Start: 06-07-2022 End: 06-08-[address] DOCTOR WELCH Facility:[facility] Start: 02-25-2022 End: 02-26-2022 ambulatory APPRENTICE JOCKEY SHANDRA AICHHOLZ Facility:[facility] Start: 02-01-2022 End: 02-02-2022 ambulatory APPRENTICE JOCKEY SHANDRA AICHHOLZ Facility:[facility] Start: 12-13-2021 End: 12-14-2021 ambulatory APPRENTICE JOCKEY SHANDRA AICHHOLZ Facility:[facility] Start: 09-15-2021 End: 09-15-2021 Lab Drop off Vickie Montiel [facility] Start: 09-15-2021 End: 09-15-2021 Patient encounter procedure Vickie Montiel [facility] Start: 09-06-2021 End: 09-07-2021 ambulatory APPRENTICE JOCKEY SHANDRA ROMERO Facility:[facility] Start: 04-14-2021 End: 04-14-2021 ambulatory Cecy Chiang Other [facility] Other Start: 04-14-2021 Office outpatient vi sit 15 minutes Cecy Chiang [facility] Procedures Date Procedure Procedure Detail Performing Clinician Start: 03-22-2023 Mammography Shandra morris [employer] Work Phone: Start: 06-19-2016 Hysterectomy Vickie Montiel Start: 12-31-2015 Microscopic observat ion [Identifier] in Cervix by Cyto stain Shandra Romero [employer]ATION [employer]INEER Work Phone: Plan of Treatment Date Care Activity Detail Author Start: 06-26-2024 End: 06-26-2024 Patient encounter procedure 06/26/2024 6:00 PM EST Office Visit [facility] [address] [place] [address] Shandra Romero, DEENA [address] [place] [address] [facility] Start: 04-06-2024 End: 05-07-2025 MG Breast [...] [facility] [address] [place] [id number] Shandra Romero NP [address] [place] [id number] [facility] Start: 03-07-2024 End: 03-07-2024 Patient encounter procedure 03/07/2024 11:00 AM EDT Office Visit [facility] [address] [place] [id number] Shandra Romero NP [address] [place] [id number] Encounter for screening mammogram for malignant neoplasm of breast (Primary Dx) [facility] Comment on above: Encounter for screen ing mammogram for malignant neoplasm of breast (Primary Dx) Start: 12-30-2018 Screening for malignant neoplasm of cervix Pap Smear [facility] Start: 2002 Screening for malignant neoplasm of cervix HPV/Cotest [facility] Start: 1972 Screening for malignant neoplasm of colon [facility] Immunizations Immunization Date Immunization Notes Care Provider Fa cility 04-12-2019 hepatitis B vaccine, adult dosage Shandra Romero [employer]ATION ENGINEER Work Phone: [facility] 04-12-2019 tetanus toxoid, reduced diphtheria toxoid, and acellular pertussis vaccine, adsorbed Shandra Romero [employer] COORDINATION ENGINEER Work Phone: [facility] NEGATED: Highlighted row has not occurred!09-15-2021 SARS-CoV-2 (COVID-19) Ad26 vaccine, recombinant Vickie Montiel [facility] Payers Date Payer Category Payer Self-pay [id number] 2019 Unknown BCBS BCBS xxxxxx [id number] 2019-Present [phone] [address] [place] [address] [id number] 1972 Unknown [id number] 2.16.840.1.101063.3.579.2. 593 1972 Unknown [id number] 2.16.840.1.178753.3.579.2. 593 1972 Unknown [id number] 2.16.840.1.304331.3.579.2. 593 1972 Unknown [id number] 2.16.840.1.359410.3.579.2. 593 1972 Unknown [id number] 2.16.840.1.287182.3.579.2. 593 1972 Unknown [id number] 2.16.840.1.013147.3.579.2. 593 1972 Unknown [id number] 2.16.840.1.594528.3.579.2. 593 1972 Unknown [id number] 2.16.840.1.462034.3.579.2. 593 1972 Unknown [id number] 2.16.840.1.911205.3.579.2. 1259 1972 Unknown [id number] 1970 Unknown [id number] 1970 Unknown [id number] [id number] 1957 Blue [employer] Blue Shield HUM [id number] Unknown [id number] 531 Unknown [id number] 531 Social History Date Type Detail Facility Start: 09-15-2021 Tobacco smoking status Heavy tobacco smoker (finding) [facility] Other Start: 09-07-2023 End: 12-11-2023 Sex Assigned At Female [facility] Other Start: 1970 Sex Assigned At Female [facility] Start: 09-07-2023 Tobacco smoking status NHIS [...] Healthcare How often do you att end voodoo or mormonism services? Patient declined [facility] Do you belong to any clubs or organizations such as voodoo groups, unions, fraternal or athletic groups, or [...] she did not get a call from [facility] I gave her a copy of [...] she did not get a call from [facility] I gave her a copy of order with scheduling number documented in this encounter [facility] 03-07-2024 History of Present illness Narrative Associated [...] last week-since having strep throat Cepacol sore orpbag-wzoxachcac-sxgtmjq Images from the original note were not included. Monet Jones is a 53 y.o. female presents with chief complaint of No chief complaint on file. HPI: Here for hospital follow up for Peritonsilar abscess. Reviewed [facility] ER notes and [facility]'s notes for HPI as well as hospital [...] Bilateral screening mammogram documented in this encounter [facility] 02-25-2022 Note PROCEDURE: XR HIP RT 2 [...] authenticated by: TODD JACOBS Date: 2022-02-25 17:[address] [facility] 09-15-2021 Note Chief Complaint Referral *Hematuria HPI Staff Evaluation requested by Shandra Romero APPRENTICE JOCKEY due to hematuria. Pt is a new [...] Illness Tests reviewed: reviewed UA, CT AP ([facility]), external records I have reviewed the [...] procedure, # 2 cap(s), Refills(s) 0, Pharmacy: [id number], 170, cm, 09/15/21 8:33:00 EDT, Height/Length Dosing, 93.9, kg, 09/15/21 8:33:00 EDT, Weight Dosing estradiol topical, See Instructions, 42.5 gm, Refill(s) 3, Apply pea sized amount 3x a week for 4 weeks and 2x a week after, [id number], 170, cm, 09/15/21 8:33:00 EDT, Height/Length Dosing, 93.9, (more content not included)... [facility] Comment on above: Result Comment: Elec [...] Follow these instructions at home: Medicines Take cosy-mic-ccljtgo and prescription medicines only as told by [...] or the blood stops without treatment. Take nkmh-ked-cnmsaew and prescription medicines only as told by your health care provider. Drink enough fluid to keep your urine clear or pale yellow. This information is not intended to replace advice given to you by your health care provider. Make sure you discuss any questions you have with your health care provider. Document Released: 06/05/2006 Document Revised: 10/30/2019 Document Reviewed: 07/08/2017 [employer] Patient Education 2020 [employer] Follow Up Care 08/23/2021 15:52:47 With:Dinesh SABA, MARCELLA Smith, URO Address: [address] [place] [place] [address] [phone] Business (1) When: Unknown [facility] 04-14-2021 Evaluation note Encounter Date Diagnosis Assessment [...] Patient care instructions given in writting by [facility] Care At Home document. [facility] Other Evaluation + Plan note Future Appointments Appointment Date:09/16/2021 08:30:00 AM Scheduled Provider: Location:[facility] Appointment Type:Urology CALL PAT FT Appointment Date:09/27/2021 09:00:00 AM Scheduled Provider: Location:[facility] Appointment Type:Urology FT [facility] evaluation noteNo assessment information available [facility] Work Phone: Evaluation note* Diagnosis Peritonsillar abscess- [...] as chi ld Hospitalization History see above [facility] Other Hospital course Narrative No data available for this section [facility] Hospital Discharge instructions No data available for this section [facility] Summary Purpose Family History No Family [...] and content) DATE CREATED AUTHOR 02/01/2022 Alexis Gurjit [facility] DATE CREATED AUTHOR AUTHOR'S ORGANIZ ATION 08/24/2022 [facility] DATE CREATED AUTHOR AUTHOR'S ORGANIZ ATION 12/15/2022 [facility] DATE CREATED AUTHOR AUTHOR'S ORGANIZ ATION 03/10/2024 [facility] DATE CREATED AUTHOR AUTHOR'S ORGANIZ ATION 03/26/2024 [facility] EPIC Care Teams (unrecognized sec tion and content) Team Status: Active Member Role Status Dates Shandra Romero Primary Care Provider Active Team Status: Inactive Member Role Status Dates Shandra Romero Primary Care Provider Active Cecil Taylor MD Attending Provider Active Furnace Operator And Tender Relationship Specialty Start Date End Date Thomas Ortez MD [address] [place] [phone] PCP - General Family Medicine 09/07/23 Shandra Romero NP [address] [place] [phone] PCP - [facility] 02/18/24 Shandra Romero NP [address] [place] [phone] Nurse Practitioner Nurse Practitioner 01/03/23 Shandra Romero NP [address] [place] [phone] Nurse Practitioner Family Medicine 09/07/23 Furnace Operator And Tender Relationship Specialty Start Date End Date Thomas Ortez MD [address] [place] [phone] PCP - General Family Medicine 09/07/23 Shandra Romero NP [address] [place] [address] PCP - [facility] 02/18/24 Shandra Romero NP [address] [place] [address] Nurse Practitioner Nurse Practitioner 01/03/23 Shandra Romero NP [address] [place] [phone] Nurse Practitioner Family Medicine 09/07/23 Furnace Operator And Tender Relationship Specialty Start Date End Date Thomas Ortez MD [address] [place] [phone] PCP - General Family Medicine 09/07/23 Shandra Romero NP [address] [place] [address] Nurse Practitioner Nurse Practitioner 01/03/23 Shandra Romero NP [address] [place] [address] Nurse Practitioner Family Medicine 09/07/23 Furnace Operator And Tender Relationship Specialty Start Date End Date Thomas Ortez MD [address] [place] [phone] PCP - General Family Medicine 09/07/23 Shandra Romero NP [address] [place] [phone] Nurse Practitioner Nurse Practitioner 01/03/23 Shandra Romero NP [address] [place] [phone] Nurse Practitioner Family Medicine 09/07/23 Goals (unrecognized [...] BE BASED ON THE PRIMARY CLINICAL RECORDS. [employer] provides no warranty or guarantee of the accuracy or completeness of information in this document.
--- OUTSIDE RECORDS SUMMARY | 2025-01-06 07:21 | XMS_ITS | Clinical Summary ---
Author Organization Adria castillo [facility] Address [facility], [address] [place] [address] Care Team Providers Care Marine Pipe Welder Name Role Phone Unavailable Primary Care Provider Unavailabl e Allergies No known active allergies Medications METHOTREXATE SODIUM IJ Inject 0.5 mg into the muscle once a week On Sundays Active hydroxychloroqu ine (PLAQUENIL) 200 MG tablet Take 1 tablet by mouth 2 times daily Active DULoxetine (CYMBALTA) 60 MG extended release capsule Take 1 capsule by mouth daily Active etodolac (LODINE) 500 MG tablet Take 1 tablet by mouth 2 times daily Active leflunomide (ARAVA) 20 MG tablet Take 1 tablet by mouth daily Active cetirizine (ZYRTEC) 10 MG tablet Take 1 tablet by mouth as needed for Allergies Active folic acid (FOLVITE) 1 MG tablet Take 1 tablet by mouth daily Active benzocaine-ment hol (CEPACOL SORE THROAT) 15-3.6 MG lozenge Take 1 lozenge by mouth every 2 hours as needed for Sore Throat Active Active Problems Problem Noted Date Diagnosed Date Leukocytosis 03/03/2024 Rheumatoid arthritis 03/03/2024 Depression 03/03/2024 Hyperlipidemia 03/03/2024 Peritonsillar abscess 03/02/2024 Immunocompromised state due to drug therapy 02/17 Social History Tobacco Use Types Packs/Day Years Used Date Smoking Tobacco: Every Day Cigarettes 1 40.6 Started: 1984 Smokeless Tobacco: Never Tobacco Cessation:Ready to Q uit: Not Asked; Counseling Given: Not Answered Alcohol Use Standard Drinks/Week Comments Yes 0 (1 standard drink = 0.6 oz pur e alcohol) [facility]IAL [facility] Utilities Answer Date Recorded In the past 12 months has [employer], gas, oil, or water [employer] threatened to shut off services in your home? No 03/02/2024 Hunger Vital Sign Answer Date Recorded Within the past 12 months, y ou worried that your food would run out before you got the money to buy more. Never true 03/02/20 24 Within the past 12 months, t he food you bought just didn't last and you didn't have money to get more. Never true 03/02/2024 PRAPARE - Transportation Answer Date Re corded In the past 12 months, has l ack of transportation kept you from medical appointments or from getting medications? No 02/17 In the past 12 months, has l ack of transportation kept you from meetings, work, or from getting things needed for daily living? No 03/02/2024 Housing Stability Vital Sign Answer Jamie e Recorded In the last 12 months, was t here a time when you were not able to pay the mortgage or rent on time? No 03/02/2024 In the past 12 months, how m any times have you moved where you were living? 1 03/02/2024 At any time in the past 12 m [facility], were you homeless or living in a residential (including now)? No 03/02/2024 Food Insecurity Answer Date Recorded Within the past 12 months, y ou worried that your food would run out before you got the money to buy more. 1 03/02/2024 Within the past 12 months, t he food you bought just didn't last and you didn't have money to get more. 1 03/02/2024 Interpersonal Safety Domain Source: IP Abuse Scr eening Answer Date Recorded Physical abuse Denies 03/02/2024 Verbal abuse Denies 03/02/2024 Emotional abuse Denies 03/02/2024 Financial abuse Denies 03/02/2024 Sexual abuse Denies 03/02/2024 Comments Unknown Sex and Gender Information Value Date Recorded Sex Assigned at Not on file Legal Sex Female 6:20 PM EDT Gender Identity Not on file Sexual Orientation Not on file Last Filed Vital Signs Vital Sign Reading Time Taken Comments Blood Pressure 91/72 03/03/2024 7:55 AM EDT Pulse 65 03/03/2024 7:55 AM EDT Temperature 36.7 C (98 F) 03/03/2024 7:55 AM EDT Respiratory Rate 18 03/03/2024 7:55 AM EDT Oxygen Saturation 96% 03/03/2024 7:55 AM EDT Inhaled Oxygen Concentration - - Weight 93.9 kg (207 lb) 03/03/2024 4:51 AM EDT Height 170.2 cm (5' 7 ) 03/02/2024 10:30 PM EDT Body Mass Index 32.42 03/02/2024 10:30 PM EDT Plan of Treatment Health Maintenance Due Date Last Done Comments COVID-19 Vaccine (#1) 1977 DTaP/Tdap/Td vaccine (1 - Tdap) 1991 Flu vaccine (#1) 01/17/2025 Polio vaccine Aged Out No longer elig ible based on patient's age to complete this topic Insurance [facility] Advance Directives * Full Code (Latest Code Status on File) Date Activated Date Inactivated Comments 03/02/2024 10:43 PM 03/03/2024 4:09 PM
[2025-01-06 07:25] VITALS: PULSE 72
--- NOTE | 2025-01-06 07:39 | XR_ITS ---
[facility] [place] [id number] Patient Name: MONET ORTEGA MRN: [id number] date: 1970 Sex: F Assigned Patient Location: ER Current Patient Location: ER Accession/Order Number: [id number] Exam Date: 01/06/2025 08:33 Report Date: 01/06/2025 08:34 At the request of: FEDERICA DUDLEY MD Procedure: XR wrist RT min 3V RIGHT WRIST - 3 views CLINICAL HISTORY: Right wrist pain for one day COMPARISON: None FINDINGS: No focal soft tissue abnormality. No acute bony process is seen. Scattered mild degenerative changes involving the carpus. No bony erosions. XR/XR wrist RT min 3V IMPRESSION: MILD DEGENERATIVE CHANGES INVOLVING THE RIGHT WRIST WITHOUT ACUTE BONY PROCESS. Impression dictated by: Colton Braxton Jr., DCalOCal 01/06/2025 8:34 AM Dictation Location: [place] [address] Electronically authenticated by: [id number] Y Date: 01/06/2025 08:34
--- NOTE | 2025-01-06 07:43 | ED.GENADUL1 ---
HPI HPI - General Adult General Chief complaint: Extremity Problem, Nontraumatic Stated complaint: R WRIST PAIN Time Seen by Provider: 01/06/25 07:32 Source: patient Mode of arrival: walk-in Limitations: no limitations History of Present Illness HPI narrative: 54-year-old female to the emergency department chief complaint of right wrist pain. Patient reports she has a history of both rheumatoid and osteoarthritis. She reports that she has been mowing and driving with her right wrist as well as with swimming all day yesterday. She is unsure if there was a particular injury although she does not remember any falls or specific pain in that wrist yesterday. She denies any redness, warmth or swelling. No fever, sweats, chills. She is otherwise at her baseline health. Related Data Home Medications �Medication �Instructions �Recorded �Confirmed amitriptyline 25 mg tablet 25 mg PO QPM 02/02/24 03/02/24 duloxetine 60 mg capsule,delayed 60 mg PO DAILY 02/02/24 03/02/24 release etodolac 500 mg tablet 500 mg PO BID 02/02/24 03/02/24 folic acid 1 mg tablet 1 mg PO DAILY 02/02/24 03/02/24 hydroxychloroquine 200 mg tablet 200 mg PO BID 02/02/24 03/02/24 methotrexate sodium 25 mg/mL 15 mg subcut QWEEK 02/02/24 03/02/24 injection solution omeprazole 20 mg capsule,delayed 20 mg PO DAILY 02/02/24 03/02/24 release Previous Rx's �Medication �Instructions �Recorded methylprednisolone 4 mg tablets in 4 mg PO DAILY #21 ea 01/06/25 a dose pack (Medrol (Ja)) oxycodone-acetaminophen 5 mg-325 1 tab PO Q6H PRN pain 3 days #12 01/06/25 mg tablet (Percocet) tabs Allergies Allergy/AdvReac Type Severity Reaction Status Date / Time No Known Drug Allergies Allergy Verified 01/06/25 07:22 Opioid HPI Opioid Management Most Recent Opioid Data: Last Pain Scale 10 Today, 07:50 Last MAR Pain Assessment Today, 07:50 Review of Systems ROS Status of ROS 10 or more systems reviewed and unremarkable except as noted in history and below [facility] Medical History (Updated 01/06/25 @ 08:47 by Patricio Langley MD) High cholesterol �E78.00 - Pure hypercholesterolemia, unspecified (ICD-10) Depression �F32.A - Depression, unspecified (ICD-10) Surgical History (Updated 03/02/24 @ 17:26 by Ladonna Najera) H/O: hysterectomy �Z90.710 - Acquired absence of both cervix and uterus (ICD-10) Social History Little interest or pleasure in doing things: not at all Feeling down, depressed, or hopeless: not at all Exam Narrative Exam Narrative: VITALS: I have reviewed the triage vital signs. GENERAL: Well developed, well appearing adult in no acute distress. NEURO: Alert and oriented. Moves all extremities. Face is symmetric and expressive. EYES: PERRL. No scleral icterus or conjunctival injection. No discharge. HENT: Normocephalic, atraumatic. Hearing is grossly intact. Nares grossly patent and without discharge. Mucous membranes moist. NECK: No JVD. Patient moves neck without restriction. Right upper extremity: Radial pulses intact. Sensation is intact over the hand, grossly, finger abduction/adduction, wrist extension are grossly intact by functional testing. Cap refill is intact in each digit. No appreciable erythema or warmth about the joints. Compartments are soft. No deformity. No specific bony tenderness SKIN: Warm and dry. Normal turgor. No rash or lesions appreciated. PSYCH: Mood, affect, and interaction is appropriate to the setting. Constitutional Vital Signs, click to edit/add: Last Vital Signs Temp 99.3 F 01/06/25 07:18 Pulse 72 01/06/25 07:25 Resp 16 01/06/25 07:18 BP 111/81 01/06/25 07:18 Pulse Ox 100 01/06/25 07:18 O2 Del Method Room Air 01/06/25 07:18 Course Vital Signs Vital signs: Vital Signs Temperature 99.3 F 01/06/25 07:18 Pulse Rate 89 01/06/25 07:18 Respiratory Rate 16 01/06/25 07:18 Blood Pressure 111/81 01/06/25 07:18 Pulse Oximetry 100 01/06/25 07:18 Oxygen Delivery Method Room Air 01/06/25 07:18 Temperature 99.3 F 01/06/25 07:18 Pulse Rate 72 01/06/25 07:25 Respiratory Rate 16 01/06/25 07:18 Blood Pressure 111/81 01/06/25 07:18 Pulse Oximetry 100 07/21/25 07:18 Oxygen Delivery Method Room Air 01/06/25 07:18 Medical Decision Making MDM Narrative Medical decision making narrative: 54-year-old female to the emergency department with chief complaint of right wrist pain. Vital stable, the patient is afebrile. There is no evidence of an acute infectious process by history or exam. She has a history of RA, recent large increase in activity specifically using that wrist with her reported mowing. Percocet, prednisone, Zofran for symptoms. X-ray. X-ray without acute findings. Patient felt improved after medications. Likely exacerbation of her existing arthritis. Discussed return precautions. Discussed signs of infection. She will follow-up with her primary care. Short course of Percocet, OARRS was reviewed. Medrol Dosepak. All questions were answered. The patient was discharged home. Medical Records Medical records reviewed: Yes I reviewed the patient's medical records Imaging Data Hand x-ray: Attestation: I have reviewed the pertinent imaging results. Radiologist's impression: ITS Impressions Wrist X-Ray 01/06/25 07:39 IMPRESSION: MILD DEGENERATIVE CHANGES INVOLVING THE RIGHT WRIST WITHOUT ACUTE BONY PROCESS. Impression dictated by: Colton Braxton Jr., D.O. 01/06/2025 8:34 AM Dictation Location: [place] [address] Electronically authenticated by: [id number] Y Date: 01/06/2025 08:34 Discharge Plan Discharge Chief Complaint: Extremity Problem, Nontraumatic Clinical Impression: Right wrist pain Patient Disposition: Home, Self-Care Time of Disposition Decision: 08:46 Condition: Good Mode of Transportation: Private Vehicle Prescriptions / Home Meds: New methylprednisolone [Medrol (Ja)] 4 mg tablets,dose pack 4 mg PO DAILY Qty: 21 0RF Rx Instructions: TAKE PER DOSEPAK INSTRUCTIONS oxycodone-acetaminophen [Percocet] 5-325 mg tablet 1 tab PO Q6H PRN (Reason: pain) 3 Days Qty: 12 0RF No Action amitriptyline 25 mg tablet 25 mg PO QPM duloxetine 60 mg capsule,delayed release(DR/EC) 60 mg PO DAILY etodolac 500 mg tablet 500 mg PO BID folic acid 1 mg tablet 1 mg PO DAILY hydroxychloroquine 200 mg tablet 200 mg PO BID methotrexate sodium 25 mg/mL solution 15 mg subcut QWEEK Patient Comments: MONDAY omeprazole 20 mg capsule,delayed release(DR/EC) 20 mg PO DAILY Print Language: Nepalese Instructions: Wrist Injury (ED), P.R.I.C.E. Treatment (ED) Additional Instructions: Call the office of your primary care doctor to arrange for follow-up within the above-stated timeframe. Your ED visit was focused on your acute issue and does not replace primary care. You should review your labs, imaging, and diagnoses from this ED visit with your primary care physician. There may be non-emergent/ incidental findings that need further evaluation. You should review your vital signs including blood pressure with your PCP. If you were prescribed medications you should discuss possible side-effects and drug interactions with your pharmacist. Call 911 or go to the nearest Emergency Department if you develop any new or worsening symptoms. Referrals: Shandra Romero NP [Primary Care Provider, Family Practice] - 1 week
[2025-01-06] MEDS: PREDNISONE 20 MG TABLET 40 MG PO (07:49)
[2025-01-06] MEDS: ONDANSETRON 4 MG RAPDIS TABLET SL (07:49)
[2025-01-06] MEDS: OXYCODONE HCL/ACETAMINOPHEN 5MG/325MG 1 TAB PO (07:50)
[2025-01-06 08:53] VITALS: BP 112/72; PULSE 74; O2SAT 100
== END 2025-01-06 08:53 | disposition home or self-care (01) ==
PROVIDERS: Emergency Provider Student in an Organized Health Care Education/Training Program; PCP Nurse Practitioner
DX: M25.531 Pain in right wrist (principal); M06.9 Rheumatoid arthritis, unspecified; Z90.710 Acquired absence of both cervix and uterus
CPT/HCPCS: 73110; 99284; J7512; Q0162

== ENCOUNTER 2025-05-06 06:59 | Emergency (ER) | payer BC, SELFPAY ==
--- OUTSIDE RECORDS SUMMARY | 2025-05-06 07:10 | XMS_ITS | CCD ---
Author Organization [facility] Care Team Providers Care Screen Printing Supervisor Name Role Phone HEATHER SHANDRA J Primary Care Physician Cecy Chiang Unavailable AICHHOLZ, MARKETING UNDERWRITER SHANDRA Admitting Unavailable AICHHOLZ, MARKETING UNDERWRITER SHANDRA Attending Unavailable AICHHOLZ, MARKETING UNDERWRITER SHANDRA Primary Care Unavailable DR WEST MCDONALD V Consulting Unavailable AICHHOLZ, MARKETING UNDERWRITER SHANDRA Consulting Unavailable MISC, DR IBARRA Admitting Unavailable MISC, DR IBARRA Attending Unavailable AICHHOLZ, MARKETING UNDERWRITER SHANDRA Primary Care Unavailable MISC, DR IBARRA Consulting Unavailable MISC, DOCTOR Admitting Unavailable MISC, DR IBARRA Attending Unavailable AICHHOLZ, MARKETING UNDERWRITER SHANDRA Primary Care Unavailable AICHHOLZ, MARKETING UNDERWRITER SHANDRA Consulting Unavailable MISC, DR IBARRA Consulting Unavailable ZIEBDR TODD GARCIA Consulting Unavailable AICHHOLZ, MARKETING UNDERWRITER SHANDRA Admitting Unavailable AICHHOLZ, MARKETING UNDERWRITER SHANDRA Attending Unavailable AICHHOLZ, MARKETING UNDERWRITER SHANDRA Primary Care Unavailable SAMSA ., ANGELA Admitting Unavailable SAMSA ., ANGELA Attending Unavailable AICHHOLZ, MARKETING UNDERWRITER SHANDRA Primary Care Unavailable DR TODD JACOBS Consulting Unavailable SAMSA ., ANGELA Consulting Unavailable AICHHOLZ, MARKETING UNDERWRITER SHANDRA Admitting Unavailable AICHHOLZ, MARKETING UNDERWRITER SHANDRA Attending Unavailable AICHHOLZ, MARKETING UNDERWRITER SHANDRA Primary Care Unavailable AICHHOLZ, MARKETING UNDERWRITER SHANDRA Consulting Unavailable AICHHOLZ, MARKETING UNDERWRITER SHANDRA Admitting Unavailable AICHHOLZ, MARKETING UNDERWRITER SHANDRA Attending Unavailable AICHHOLZ, MARKETING UNDERWRITER SHANDRA Primary Care Unavailable AICHHOLZ, MARKETING UNDERWRITER SHANDRA Consulting Unavailable AICHHOLZ, MARKETING UNDERWRITER SHANDRA Admitting Unavailable AICHHOLZ, MARKETING UNDERWRITER SHANDRA Attending Unavailable AICHHOLZ, MARKETING UNDERWRITER SHANDRA Primary Care Unavailable DR WEST MCDONALD V Consulting Unavailable AICHHOLZ, MARKETING UNDERWRITER SHANDRA Consulting Unavailable Aichholz, Shandra J Primary Care Provider MD Cecil Taylor Attending Provider Kendra Woodall Admitting Unavailable Shandra Romero Primary Care Unavailable Kendra Woodall Attending Unavailable Cecil Taylor Attending Unavailable Cecil Taylor Admitting Unavailable Shandra Romreo Primary Care Unavailable MAURO VALENCIA Admitting Unavailable MAURO VALENCIA Attending Unavailable REMIGIO HARRIS Referring Unavailable ETTA DAMIAN Consulting Unavailable Aichholcathi MOBILE SECURITY ARCHITECT, Shandra Unavailable Thomas Ortez MD Primary Care Provider [phone] Aichholcathi MOBILE SECURITY ARCHITECT, Shandra Unavailable Aichholz MOBILE SECURITY ARCHITECT, Shandra Unavailable HEATHER SHANDRA Attending Unavailable AICHVANCE SHANDRA Attending Unavailable SHANDRA ROMERO Attending Unavailable Aichholz MOBILE SECURITY ARCHITECT-C, Shandra Lin Primary Care Provider Aichvance MOBILE SECURITY ARCHITECT-C, Shandra Lin Attending Provider [phone] Aichholz MOBILE SECURITY ARCHITECT, Shandra Unavailable Thomas Ortez MD Primary Care Provider [phone] Aichholz MOBILE SECURITY ARCHITECT, Shandra Unavailable Aichholz MOBILE SECURITY ARCHITECT, Shandra Unavailable Medications Current Medications MedicationDrug Class(es)DatesSig (Normalized)Sig (Original)8 hr acetaminophen 650 mg extended release oral tablet (11 sources)acetaminophen (Tylenol 8 Hour) 650 MG ER tablet every 8 (eight) hours Activeacetaminophen 325 mg / oxyCODONE hydrochloride 5 mg oral tablet (3 sources)Opioid AgonistStart: 17-04-0457rkmz 1 tablet by mouth every six hours as needed for painoxyCODONE-acetaminophen (Percocet) 5-325 MG tablet TAKE 1 TABLET BY MOUTH EVERY 6 HOURS NEEDED FOR PAIN FOR 3 DAYS 01/06/2025 Active [id number] 200 actuat albuterol 0.09 mg/actuat metered dose inhaler (14 sources)beta2-Adrenergic AgonistStart: 65-40-8987ecst 1 puff(s) by inhalation every four to six hours as neededAlbuterol Sulfate 90 mcg/actuation HFA aerosol inhaler Active 2 PUFF INHALATION EVERY 4-6 HOURS as needed March 21, 2025 12:00am Complies with drug therapyStart: 93-22-1197pidnhgxmf Refills(s) 0 Start Date: 09/15/21 Status: Orderedtake 2 puff(s) by inhalation every six hours for wheezingalbuterol HFA 90 mcg/act inhaler Inhale 2 puffs every 6 (six) hours if needed for wheezing or shortness of breath Active amitriptyline hydrochloride 25 mg oral tablet (12 sources)Tricyclic AntidepressantStart: 01-17-2024 End: 18-89-5630neon 1 tablet by mouth once daily at bedtimeAmitriptyline 25 mg tablet Active 25 MG PO Daily at bedtime March 21, 2025 12:00am Complies with drug therapyamoxicillin 875 mg / clavulanate 125 mg oral tablet (3 sources)Penicillin-class AntibacterialStart: 03-03-2024 End: 57-62-7285qcot 1 tablet by mouth in the morningamoxicillin-clavulanate (Augmentin) 875-125 MG tablet Take 1 tablet by mouth in the morning and 1 tablet before bedtime. 03/03/2024 03/10/2024 Activeatorvastatin 40 mg oral tablet (14 sources)HMG-CoA Reductase InhibitorStart: 01-20-2025 End: 97-25-6263rmbe 1 tablet by mouth once daily at bedtimeAtorvastatin 40 mg tablet Active 40 MG PO Daily at bedtime March 21, 2025 12:00am Complies with drug therapyStart: 53-82-3253wqqpprkbpaex Oral, Daily, Refills(s) 0 Start Date: 09/15/21 Status: Orderedbenzocaine 15 mg / menthol 3.6 mg oral lozenge (3 sources)Standardized Chemical AllergenStart: 03-03-2024 End: 00-36-8785idqouqmvca-menthol (Cepastat Sore Throat) 15-3.6 MG Take 1 lozenge by mouth 03/03/2024 03/07/2024 Discontinuedcephalexin 500 mg oral capsule (2 sources)Cephalosporin AntibacterialStart: 09-36-3777rlbj 1 capsule by mouth once dailyKeflex 500 mg Cap 500 mg = 1 cap(s), Oral, Daily, Start 1 day prior to procedure, # 2 cap(s), Refills(s) 0, Pharmacy: [facility]/pharmacy #[id number], 170, cm, 09/15/21 8:33:00 EDT, Height/Length Dosing, 93.9, kg, 09/15/21 8:33:00 EDT, Weight Dosing Start Date: 09/15/21 Status: Orderedcetirizine hydrochloride 10 mg oral tablet (12 sources)Histamine-1 Receptor AntagonistStart: 27-97-3662vqvl 1 tablet by mouth once daily as neededCetirizine 10 mg tablet Active 10 MG PO Daily as needed March 21, 2025 12:00am Complies with drug therapyDULoxetine 60 mg delayed release oral capsule (12 sources)Serotonin and Norepinephrine Reuptake InhibitorStart: 01-17-2024 End: 48-62-1391Ubopixaoma 60 mg capsule,delayed release(DR/EC) Active MG PO March 21, 2025 12:00am Complies with drug therapyEstradiol (2 sources)EstrogenStart: 46-65-7003Asglinn 0.1 mg/g Cream See Instructions, 42.5 gm, Refill(s) 3, Apply pea sized amount 3x a week for4 weeks and 2x a week after, [facility]/pharmacy #[id number], 170, cm, 09/15/21 8:33:00 EDT, Height/Length Dosing, 93.9, kg, 09/15/21 8:33:00 EDT, Weight Dosing Start Date: 09/15/21 Status: Orderedetodolac 500 mg oral tablet (15 sources)Nonsteroidal Anti-inflammatory DrugStart: 14-80-0184qzhv 1 tablet by mouth every twelve hours as neededEtodolac 500 mg tablet Active 500 MG PO Every 12 hours as needed March 21, 2025 12:00am Complieswith drug therapyStart: 89-49-8992wccpicem Oral, Refills(s) 0 Start Date: 09/15/21 Status: Ordered Etodolac Activefexofenadine (2 sources)Histamine-1 Receptor AntagonistStart: 57-36-6296Voopbja Oral, Refills(s) 0 Start Date: 09/15/21 Status: ApshakdFjishnkpvkl-Fixyyeaom-Itaujqwt (12 sources)Anticholinergic, Corticosteroid, beta2-Adrenergic AgonistStart: 38-34-7530Hhnpaeutiym-Umeclidin-Vilanter (Trelegy Ellipta) 100-62.5-25 mcg blister with device Active 1 INH INHALATION Daily March 21, 2025 12:00am Complies with drug therapyStart: 01-20-2025 End: 09-83-3494ssmn 1 puff(s) by mouth once rqzeaWmwhhakxxaw-Nfwgydysx-Mnslve (Trelegy Ellipta) 100-62.5-25 MCG/ACT aerosol powder Indications: Centrilobular emphysema (HCC) Inhale 1 puff 1 (one) time each day at the same time Rinse mouth after use3 each 1 01/20/2025 04/20/2025 Activefluticasone / vilanterol (1 source)Corticosteroid, beta2-Adrenergic AgonistBreo Ellipta Activefolic acid 1 mg oral tablet (14 sources)Start: 35-18-3754qizn 1 tablet by mouth once dailyFolic Acid 1 mg tablet Active 1 MG PO Daily March 21, 2025 12:00am Complies with drug therapy Start: 65-45-4502gall 1 tablet by mouth once dailyfolic acid 1 mg Tab mg tab(s), Oral, Daily, Refills(s) 0 Start Date: 09/15/21 Status: Orderedhydroxychloroquine sulfate 200 mg oral tablet (12 sources)Antimalarial, Antirheumatic AgentStart: 00-05-0156egdr 1 tablet by mouth twice dailyibuprofen 600 mg oral tablet (3 sources)Nonsteroidal Anti-inflammatory DrugStart: 87-97-9312xsev 1 tablet by mouth every six hours as neededibuprofen 600 MG tablet Take 1 tablet by mouth every 6 (six) hours if needed 07/24/2024 Activeleflunomide 20 mg oral tablet (12 sources)Antirheumatic AgentStart: 15-94-3217dgax 1 tablet by mouth once dailyLeflunomide 20 mg tablet Active 20 MG PO Daily March 21, 2025 12:00am Complies with drug therapyloratadine 10 mg oral tablet (3 sources) End: 48-76-4382qtyweiefji (Claritin) 10 MG tablet Take by mouth Daily 03/07/2024 Discontinued (Therapy completed)methotrexate 25 mg/ml injectable solution (11 sources)Folate Analog Metabolic Inhibitorinject 0.6 mL by subcutaneous injection every weekmethotrexate 50 MG/2ML injection INJECT 0.6 MILLILITERS SUBCUTANEOUSLY ONCE A WEEK ActiveMethylprednisolone (12 sources)CorticosteroidStart: 68-96-1932Bkrtgzhdhzqojeuybr 4 mg tablets,dose pack Active 0 .ROUTE .COMPLEX March 21, 2025 12:00am 1 dosepack as directed; Complies with drug therapyStart: 71-78-5631hyfisdQNBTVTCnovpx (Medrol Dospak) 4 MG tablets TAKE 6 TABLETS ON DAY 1 DIRECTED ON PACKAGE AND DECREASE BY 1 TAB EACH DAY FOR A TOTAL OF 6 DAYS 08/24/2023 Activeomeprazole 20 mg delayed release oral capsule (12 sources)Proton Pump InhibitorStart: 08-24-2023 End: 89-44-0123dsia 1 capsule by mouth once dailyOmeprazole 20 mg capsule,delayed release(DR/EC) Active 20 MG PO Daily March 21, 2025 12:00am Complies with drug therapypredniSONE 20 mg oral tablet (3 sources)Start: 03-03-2024 End: 22-72-3909qxlh 2 tablets by mouth once dailypredniSONE (Deltasone) 20 MG tablet Take 2 tablets by mouth Daily 03/03/2024 03/08/2024 Active Completed/Discontinued Medications MedicationDrug Class(es)DatesSig (Normalized)Sig (Original)chlorzoxazone 500 mg oral tablet (4 sources)Muscle RelaxantStart: 03-21-2025 End: 92-44-6971knuw 1 tablet by mouth three times daily as needed for muscle spasmsChlorzoxazone 500 mg tablet Discontinued 500 MG PO Three times daily as needed for muscle spasm March 21, 2025 12:00am April 07, 2025 6:26pm Start: 69-73-1945npxc 1 tablet by mouth every eight hours as neededchlorzoxazone (Parafon Forte) 500 MG tablet Take 500 mg by mouth every 8 (eight) hours if needed for muscle spasms 07/24/2024 ActiveMethotrexate Sodium (Pf) 50 mg recon soln (1 source)Start: 03-21-2025 End: 81-74-1695vjmcue 50 mg by intramuscular injection onceMethotrexate Sodium (Pf) 50 mg recon soln Discontinued 50 MG .Route March 21, 2025 12:00am Octobe r 2024 6:27pm IM injection per orders Problems Active Problems Problem ClassificationProblemDateDocumented DateEpisodic/ChronicChronic obstructive pulmonary disease and bronchiectasis (8 sources)Centriacinar emphysema; Translations: [Centrilobular emphysema]Onset: 441634-38-8982ZujpyqdTizhvzfb of white blood cells (12 sources)Leukocytosis; Translations: [Elevated white blood cell count, unspecified]Onset: 928327-52-9701YxhvubaHwldsrsej of lipid metabolism (20 sources)Hyperlipidemia; Translations: [Hyperlipidemia, unspecified]Onset: 729577-32-3572MubvowkCtpftdhbobttp symptoms and ill-defined conditions (15 sources)Mixed incontinence; Translations: [Incontinence]Onset: 09-15-2021 ChronicMood disorders (20 sources)Depressive disorder; Translations: [Depression, unspecified]Onset: 08-26-2023 Resolved: 628266-29-3771QpgexemSjooieulfyqoez (3 sources)Arthritis; Translations: [Primary generalized (osteo)arthritis]Onset: 366099-86-5481DepzyerOtfnh nutritional; endocrine; and metabolic disorders (11 sources)Obesity caused by energy imbalance; Translations: [Other obesity due to excess calories]Onset: 674836-24-7250WavsayrJsckn screening for suspected conditions (not mental disorders or infectious disease) (20 sources)Other abnormal and inconclusive findings on diagnostic imaging of breast; Translations: [Encounter for screening, unspecified]Onset: 02-25-2022 EpisodicResidual codes; unclassified (1 source)Family history of malignant neoplasm of genital structure; Translations: [Family history of malignant neoplasm of other genital organs] Onset: 12-14-4972BnpzqryzDnuiyyjx codes; unclassified (6 sources)Genetic disorder carrier; Translations: [Genetic carrier of other disease]Onset: 261739-78-9491QjopvihdYmicyqmtpf arthritis and related disease (20 sources)Rheumatoid arthritis with rheumatoid factor of multiple 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;Translations: [Rheumatoid arthritis of multiple joints]Onset: 06-07-2022 Resolved: 03-52-6235ZznequsAsrqymmdf-related disorders (20 sources)Nicotine dependence; Translations: [Nicotine dependence, unspecified, uncomplicated]Onset: 09-15-2021 Resolved: 40-49-6059LnhrwzaJjffjxjwwlgx (2 sources)Asymptomatic microscopic -36-4959Qdqhpujupvrf (1 source)Rheumatoid arthritis with rheumatoid factor of multiple 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;Translations: [Rheumatoid arthritis with rheumatoid factor of multiple 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]Onset: 12-06-2022 Past or Other Problems Problem ClassificationProblemDateDocumented DateEpisodic/ChronicAcute and chronic tonsillitis (17 sources)Peritonsillar abscess; Translations: [Peritonsillar abscess]Onset: 03-02-2024 Resolved: 50-62-7366AxqkgxufInnyesoeknalr symptoms and ill-defined conditions (14 sources)Microscopic hematuria; Translations: [Asymptomatic microscopic hematuria]Onset: 04-53-0796NticbcpvKhggmdwo; including migraine (14 sources)Headache; Translations: [Headache]Onset: 198949-81-3485 EpisodicImmunizations and screening for infectious disease (1 source)Contact with and (suspected) exposure to other viral communicable diseasesOnset: 04-14-2021 Resolved: 22-00-7502BuxhprdhGzoju aftercare (14 sources)Drug-induced immunodeficiency ; 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]Onset: 274587-80-1938YidyavkvFdbho lower respiratory disease (1 source)Other nonspecific abnormal finding of lung field; Translations: [OTH NONSPECIFIC ABN FIND LNG FIELD]Onset: 01-74-8181GfesifdqAfgvq lower respiratory disease (4 sources)Solitary pulmonary nodule; Translations: [SOLITARY PULMONARY NODULE] Onset: 87-27-8448XruxkcduFynhb non-traumatic joint disorders (1 source)Pain in right hip; Translations: [PAIN IN RIGHT HIP]Onset: 02-28-2022 EpisodicOther nutritional; endocrine; and metabolic disorders (11 sources)Obesity; Translations: [Obesity, unspecified]Onset: 09-07-2023 Resolved: 866663-53-0597RnwdtveVemry upper respiratory infections (1 source)Acute upper respiratory infection, unspecifiedOnset: 04-14-2021 Resolved: 34-19-4347ZkpjzgyxWwnnhiks codes; unclassified (14 sources)Family history of malignant neoplasm of cervix uteri; Translations: [Family history of malignant neoplasm of other genital organs]Onset: 12-11-2023 73-11-1714Vudvhbly Results Test NameValueInterpretationReference RangeFacilityCT LUNG SCREENING LOW DOSEon 64-60-2451YdlNewton[place] [address] CT Scan Report Signed Patient: CATHIE ORTEGA MR#: [id number] : 1970 Acct:[id number] Age/Sex: 53 / F ADM Date: 03/27/24 Loc: CT Attending Dr: Angela Adams D.O. Ordering Physician: Angela Adams D.O. Date of Service: 03/27/24 Procedure(s): CT lung screening low-dose Accession Number(s): [id number] cc: Shandra Romero NP [place] [id number] Patient Name: CATHIE ORTEGA MRN: [id number] date: 1970 Sex: F Assigned Patient Location: CT Current Patient Location: Accession/Order Number: [id number] Exam Date: 03/27/2024 13:45 Report Date: 03/28/2024 06:17 At the request of: AGNELA ADAMS Procedure: CT lung screening low-dose EXAMINATION: [...] Chest in 1 year. Electronically authenticated by: TODD JACOBS Date: 03/28/2024 06:17 Dictated By: Todd Jacobs M.D. Signed By: 03/28/24618 DD/ 6 TD/TT: Cylinder Steamer:TBHRadiology, Radiologist, - 03/28/2024 [place] [address] CT Scan Report Signed Patient: CATHIE ORTEGA MR#: [id number] : 1970 Acct:[id number] Age/Sex: 53 / F ADM Date: 03/27/24 Loc: CT Attending Dr: Angela Adams D.O. Ordering Physician: Angela Adams D.O. Date of Service: 03/27/24 Procedure(s): CT lung screening low-dose Accession Number(s): [id number] cc: Shandra Romero NP [place] [id number] Patient Name: CATHIE ORTEGA MRN: [id number] date: 1970 Sex: F Assigned Patient Location: CT Current Patient Location: Accession/Order Number: [id number] Exam Date: 03/27/2024 13:45 Report Date: 03/28/2024 [...] Chest in 1 year. Electronically authenticated by: TODD JACOBS Date: 03/28/2024 06:17 Dictated By: Todd Jacobs M.D. Signed By: 03/28/24618 DD/ 6 TD/TT: Cylinder Steamer: [facility] HealthcareRadiology Study observation (narrative)[facility] HealthcareCT LUNG SCREENING LOW DOSEOrdered By: Radiologist Radiology on 84-33-1295LWKZSt. Louis VA [facility] Work Phone: mm TOMOSYNTHESIS SCREENING BIon 69-33-9335[place]bk[place] [address] Mammography Report Signed Patient: CATHIE ORTEGA MR#: [id number] : 1970 Acct:[id number] Age/Sex: 53 / F ADM Date: 03/27/24 Loc: CT Attending Dr: Shandra Romero NP Ordering Physician: Shandra Romero NP Results: Date of Service: 03/27/24 Follow Up: Procedure(s): MM tomosynthesis screening BI Accession Number(s): [id number] cc: Shandra Romero NP Patient Name: CATHIE ORTEGA MR#: [id number] : 1970 Exam Date: 03/27/2024 Ordering Doctor: TONI Romero CNP RADIOLOGY REPORT PROCEDURE: MM TOMOSYNTHESIS SCREENING BI COMPARISON: MM TOMOSYNTHESIS SCREENING BI, 03/22/2023. MG MAMM SCREEN 3D [place] CAD, 07/20/2021. INDICATIONS: Screening Calculator Name NCI Breast Cancer Risk Assessment Tool 5 Year Breast Cancer Risk 0.90% Lifetime Breast Cancer Risk 7.90% Personal Breast Cancer No Personal Ovarian Cancer No Treatments None Family Cancers Mother with cervical cancer at age 50; Daughter with cervical cancer at age 24; Daughter with cervical cancer at age 27. LOCATION: [facility] BREAST COMPOSITION: There are scattered areas of fibroglandular density. FINDINGS: DIAGNOSTIC CATEGORY 1--NEGATIVE. RIGHT BREAST: No significant suspicious finding. No significant change has occurred. LEFT BREAST: No significant suspicious finding. No significant change has occurred. RECOMMENDATIONS: ROUTINE MAMMOGRAM AND CLINICAL EVALUATION IN 12 MONTHS. PLEASE NOTE: A NORMAL MAMMOGRAM DOES NOT EXCLUDE THE POSSIBILITY OF BREAST CANCER. A CLINICALLY SUSPICIOUS PALPABLE LUMP SHOULD BE BIOPSIED. Dictated by: Todd Jacobs M.D. on 03/27/2024 at 16:13 Approved by: Todd Jacobs M.D. on 03/27/2024 at 16:15 Dictated By: Todd Jacobs M.D. Signed By: 03/27/24 1616 DD/ 1615 TD/TT: Cylinder Steamer:TBHRadiology, Radiologist, MD - 03/27/2024 [place] [address] Mammography Report Signed Patient: CATHIE ORTEGA MR#: [id number] : 1970 Acct:[id number] Age/Sex: 53 / F ADM Date: 03/27/24 Loc: CT Attending Dr: Shandra Romero NP Ordering Physician: Shandra Romero NP Results: Date of Service: 03/27/24 Follow Up: Procedure(s): MM tomosynthesis screening BI Accession Number(s): [id number] cc: Shandra Romero NP Patient Name: CATHIE ORTEGA MR#: [id number] : 1970 Exam Date: 03/27/2024 Ordering Doctor: TONI Romero CNP RADIOLOGY REPORT PROCEDURE: MM TOMOSYNTHESIS SCREENING BI COMPARISON: MM TOMOSYNTHESIS SCREENING BI, 03/22/2023. MG MAMM SCREEN 3D [place] CAD, 07/20/2021. INDICATIONS: Screening Calculator Name NCI Breast Cancer Risk Assessment Tool 5 Year Breast Cancer Risk 0.90% Lifetime Breast Cancer Risk 7.90% Personal Breast Cancer No Personal Ovarian Cancer No Treatments None Family Cancers Mother with cervical cancer at age 50; Daughter with cervical cancer at age 24; Daughter with cervical cancer at age 27. LOCATION: [facility] BREAST COMPOSITION: There are scattered areas of fibroglandular density. FINDINGS: DIAGNOSTIC CATEGORY 1--NEGATIVE. RIGHT BREAST: No significant suspicious finding. No significant change has occurred. LEFT BREAST: No significant suspicious finding. No significant change has occurred. RECOMMENDATIONS: ROUTINE MAMMOGRAM AND CLINICAL EVALUATION IN 12 MONTHS. PLEASE NOTE: A NORMAL MAMMOGRAM DOES NOT EXCLUDE THE POSSIBILITY OF BREAST CANCER. A CLINICALLY SUSPICIOUS PALPABLE LUMP SHOULD BE BIOPSIED. Dictated by: Todd Jacobs M.D. on 03/27/2024 at 16:13 Approved by: Todd Jacobs M.D. on 03/27/2024 at 16:15 Dictated By: Todd Jacobs M.D. Signed By: 03/27/246 DD/ TD/TT: Cylinder Steamer: [facility] T HealthcareRadiology Study observation (narrative)[facility] Healthcare TOMOSYNTHESIS SCREENING BIOrdered By: Radiologist Radiology on 04-69-3780EX[facility] Healthcare Work Phone: cult, Bloodon 53-60-0670Aqqx, BloodSpecimen Description .BLOOD Special Requests r hand 0.5ml Culture NO GROWTH 5 DAYS Report Status FINAL 03/08/2024[facility] SystemComment on above:Performed By: #### BCUL2 #### [employer] [address] [place] [address] Pupil Personnel Services Director: LITO Averyult,Bloodon 39-53-4225Fhss,BloodSpecimen Description .BLOOD Special Requests L HAND 0.5ML Culture NO GROWTH 5 DAYS Report Status FINAL 03/08/2024NormalMartins Ferry HospitalComment on above:Performed By: #### BC #### [facility] [facility] [address] [place] [address] Pupil Personnel Services Director: Enrrique Avery Metab w/rfx MGon 46-64-3894Uwssy gap [Moles/Vol]16 mmol/LNormal9-16[facility] Ferry HospitalComment on above: Performed By: #### MG, PRCAL, CDP, BMPX #### [facility] [address] [place] [address] Pupil Personnel Services Director: LITO Averyalcium [Mass/Vol]9.1 mg/dLNormal8.6-10.4[facility] Ferry HospitalComment on above:Performed By: #### MG, PRCAL, CDP, BMPX #### [facility] [facility] [address] [place] [address] Pupil Personnel Services Director: LITO Averyhloride [Moles/Vol]102 mmol/ZUpoyiv76-919LvqbqMartins Ferry HospitalComment on above:Performed By: #### MG, PRCAL, CDP, BMPX #### [facility] [address] [place] [address] Pupil Personnel Services Director: Antwan Rice MDCO2 [Moles/Vol]20 mmol/MCrocuy20-25CsythMartins Ferry HospitalComment on above:Performed By: #### MG, PRCAL, CDP, BMPX #### [facility] [address] [place] [address] Pupil Personnel Services Director: LITO Averyreatinine [Mass/Vol]0.8 mg/dLNormal0.50-0.90 [facility] Ferry HospitalComment on above:Performed By: #### MG, PRCAL, CDP, BMPX #### [place] [address] Pupil Personnel Services Director: Antwan Rice MDGFR/1.73 sq M.predicted among non-blacks MDRD (S/P/Bld) [Vol rate/Area]85 mL/min/{1.73_m2}Normal>60Martins Ferry HospitalComment on above:Result Comment: These results are not intended for [...] or following therapy that affects renal tubular secretion.Performed By: #### MG, PRCAL, CDP, BMPX #### [facility] [facility] [address] [place] [address] Pupil Personnel Services Director: Antwan Rice MDGlucose [Mass/Vol]117 mg/lKIxta96-03JytujIndian Valley HospitalComment on above:Performed By: #### MG, PRCAL, CDP, BMPX #### [facility] [address] [place] [address] Pupil Personnel Services Director: YULY Averyotassium [Moles/Vol]3.5 mmol/LLow3.7-5.3MIndian Valley HospitalComment on above:Result Comment: SPECIMEN SLIGHTLY HEMOLYZED, RESULTS MAY BE ADVERSELY AFFECTED.Performed By: #### MG, PRCAL, CDP, BMPX #### [place] [address] Pupil Personnel Services Director: ZACHARY Averyodium [Moles/Vol]138 mmol/MCoibku703-967CrijhMartins Ferry HospitalComment on above:Performed By: #### MG, PRCAL, CDP, BMPX #### [facility] [address] [place], [place] [id number] Pupil Personnel Services Director: Antwan Rice MDUrea nitrogen [Mass/Vol]17 mg/dLNormal6-20Martins Ferry HospitalComment on above:Performed By: #### MG, PRCAL, CDP, BMPX #### [facility] [address] [place] [address] Pupil Personnel Services Director: LITO Avery with Diffon 80-92-1109Ulh. Basophil<0.03 Normal0.00-0.20MerKindred HospitalComment on above:Performed By: #### MG, PRCAL, CDP, BMPX #### [facility] [address] [place] [address] Pupil Personnel Services Director: Morgan Avery. Eosinophil<0.88Xrimcz7.00-0.44Mart[facility] Ferry HospitalComment on above:Performed By: #### MG, PRCAL, CDP, BMPX #### [facility] [address] [place] [address] Pupil Personnel Services Director: Morgan Avery.Imm.Granulocyte0.08 k/uLNormal0.00-0.30[facility] Ferry HospitalComment on above:Performed By: #### MG, PRCAL, CDP, BMPX #### [facility] [address] [place] [address] Pupil Personnel Services Director: Morgan Avery.Neutrophil (Seg)15.65 k/uLHigh1.50-8.10Mart[facility] Ferry HospitalComment on above:Performed By: #### MG, PRCAL, CDP, BMPX #### [facility] [address] [place] [address] Pupil Personnel Services Director: Antwan Rice MDBasophils/100 WBC (Bld)0 %Normal0-2MercAurora Las Encinas HospitalComment on above:Performed By: #### MG, PRCAL, CDP, BMPX #### [facility] [address] [place] [address] Pupil Personnel Services Director: Antwan Rice MDEosinophils/100 WBC (Bld)0 %Low1-4[facility] Ferry HospitalComment on above:Performed By: #### MG, PRCAL, CDP, BMPX #### [facility] [address] [place] [address] Pupil Personnel Services Director: Antwan Rice MDErythrocyte distribution width (RBC) [Ratio]13.7 %Jvgpey83.8-14.4Mart[facility] Ferry HospitalComment on above:Performed By: #### MG, PRCAL, CDP, BMPX #### [facility] [address] [place] [address] Pupil Personnel Services Director: Antwan Rice MDHematocrit (Bld) [Volume fraction]38.3 %Normal 36.3-47.1MIndian Valley HospitalComment on above:Performed By: #### MG, PRCAL, CDP, BMPX #### [facility] [address] [place] [address] Pupil Personnel Services Director: Antwan Rice MDHemoglobin (Bld) [Mass/Vol]12.6 g/dLNormal 11.9-15.1MIndian Valley HospitalComment on above:Performed By: #### MG, PRCAL, CDP, BMPX #### [facility] [address] [place] [address] Pupil Personnel Services Director: Antwan Rice MDImmature granulocytes/100 WBC (Bld)1 %Egiq6YhqclMartins Ferry HospitalComment on above:Performed By: #### MG, PRCAL, CDP, BMPX #### [facility] [address] [place] [address] Pupil Personnel Services Director: Antwan Rice MDLymphocytes (Bld) [#/Vol]1.02 10*3/uLLow 1.10-3.70Mart[facility] Ferry HospitalComment on above:Performed By: #### MG, PRCAL, CDP, BMPX #### [facility] [address] [place] [address] Pupil Personnel Services Director: Erendira Averymphocytes/100 WBC (Bld)6 %Hyv70-40DgufsMartins Ferry HospitalComment on above:Performed By: #### MG, PRCAL, CDP, BMPX #### [facility] [address] [place] [address] Pupil Personnel Services Director: JULIANA AveryCH (RBC) [Entitic mass]28.0 udZtcsia09.2-33.5 [facility]erry HospitalComment on above:Performed By: #### MG, PRCAL, CDP, BMPX #### [facility] [address] [place] [address] Pupil Personnel Services Director: PEDRO AveryC (RBC) [Mass/Vol]32.9 g/bCZissuz52.4-34.8 [facility] HospitalComment on above:Performed By: #### MG, PRCAL, CDP, BMPX #### [facility] [address] [place] [address] Pupil Personnel Services Director: JULIANA AveryCV (RBC) [Entitic vol]85.1 rOZorbcf34.6-102.9 [facility]erry HospitalComment on above:Performed By: #### MG, PRCAL, CDP, BMPX #### [facility] [address] [place] [address] Pupil Personnel Services Director: JULIANA Averyonocytes (Bld) [#/Vol]0.36 10*3/uLNormal 0.10-1.20[facility]erry HospitalComment on above:Performed By: #### MG, PRCAL, CDP, BMPX #### [facility] [address] [place] [address] Pupil Personnel Services Director: JULIANA Averyonocytes/100 WBC (Bld)2 %Low3-12Mart[facility] Ferry HospitalComment on above:Performed By: #### MG, PRCAL, CDP, BMPX #### [facility] [address] [place] [address] Pupil Personnel Services Director: Boni Averyutrophil (Seg)91 %Bgda06-45GrxczMartins Ferry HospitalComment on above:Performed By: #### MG, PRCAL, CDP, BMPX #### [facility] [address] [place] [address] Pupil Personnel Services Director: Antwan Rice MDNRBC Automated0.0 per 100 WBCNormal0.0Mart[facility] Ferry HospitalComment on above:Performed By: #### MG, PRCAL, CDP, BMPX #### [facility] [address] [place] [address] Pupil Personnel Services Director: Emanuel Averytechandra mean volume (Bld) [Entitic vol]9.6 fL Normal8.1-13.5Mart[facility] Ferry HospitalComment on above:Performed By: #### MG, PRCAL, CDP, BMPX #### [facility] [address] [place] [address] Pupil Personnel Services Director: YULY Averylatelets (Bld) [#/Vol]287 10*3/qCRnkvci594-852 [facility]erry HospitalComment on above:Performed By: #### MG, PRCAL, CDP, BMPX #### [facility] [address] [place] [address] Pupil Personnel Services Director: Antwan Rice MDRBC (Bld) [#/Vol]4.50 10*6/uLNormal3.95-5.11 [facility] HospitalComment on above:Performed By: #### MG, PRCAL, CDP, BMPX #### [facility] [address] [place] [address] Pupil Personnel Services Director: CHRIS AveryBC (Bld) [#/Vol]17.1 10*3/uLHigh3.5-11.3Mohio[facility] hospitaly [facility] Vista Medical CenterComment on above:Performed By: #### MG, PRCAL, CDP, BMPX #### [facility] [address] [place] [address] Pupil Personnel Services Director: LITO Averyomp Metabolic Pr/rfx MGon 81-61-2998Zdzpkli [Mass/Vol]4.3 g/dLNormal3.5-5.2MIndian Valley HospitalComment on above: Performed By: #### CMPX, MG #### [facility] [address] [place] [address] Pupil Personnel Services Director: Antwan Rice MDAlbumin/Glob Ratio1.0Zwqycr6.0-2.5[facility] Ferry HospitalComment on above:Performed By: #### CMPX, MG #### [facility] [address] [place] [address] Pupil Personnel Services Director: Fabian Averykaline Jvwv901 U/PKdipsq25-795OqsgyMartins Ferry HospitalComment on above:Performed By: #### CMPX, MG #### [facility] [address] [place] [address] Pupil Personnel Services Director: Antwan Rice MDALT [Catalytic activity/Vol]7 U/MRio98-74JzvviMartins Ferry HospitalComment on above:Performed By: #### CMPX, MG #### [facility] [address] [place] [address] Pupil Personnel Services Director: Angélica Avery gap [Moles/Vol]17 mmol/LHigh9-16[facility]erry HospitalComment on above:Performed By: #### CMPX, MG #### [facility] [address] [place] [address] Pupil Personnel Services Director: Antwan Madoff, MDAST [Catalytic activity/Vol]17 U/LXocvpb99-60 [facility] HospitalComment on above:Performed By: #### CMPX, MG #### [address] [address] Pupil Personnel Services Director: Antwan Rice MDBilirubin [Mass/Vol]0.3 mg/dLNormal0.00-1.20 [facility] HospitalComment on above:Performed By: #### CMPX, MG #### [place] [address] Pupil Personnel Services Director: LITO Aevryalcium [Mass/Vol]9.5 mg/dLNormal8.6-10.4[facility] Ferry HospitalComment on above:Performed By: #### CMPX, MG #### [place] [address] Pupil Personnel Services Director: LITO Averyhloride [Moles/Vol]100 mmol/DByjppn61-139NkjpjMartins Ferry HospitalComment on above:Performed By: #### CMPX, MG #### [place] [address] Pupil Personnel Services Director: Antwan Rice MDCO2 [Moles/Vol]20 mmol/DTvwjvz26-83YxuelMartins Ferry HospitalComment on above:Performed By: #### CMPX, MG #### [place] [address] Pupil Personnel Services Director: LITO Averyreatinine [Mass/Vol]0.8 mg/dLNormal0.50-0.90 [facility] HospitalComment on above:Performed By: #### CMPX, MG #### [facility] [address] [place] [address] Pupil Personnel Services Director: Antwan Rice MDGFR/1.73 sq M.predicted among non-blacks MDRD (S/P/Bld) [Vol rate/Area]mL/min/{1.73_m2}Normal>60Mart[facility] Ferry HospitalComment on above:Result Comment: These results are not intended for [...] or following therapy that affects renal tubular secretion.Performed By: #### CMPX, MG #### [facility] [address] [place] [address] Pupil Personnel Services Director: Antwan Rice MDGlucose [Mass/Vol]132 mg/qBRxsk71-58AvrekIndian Valley HospitalComment on above:Performed By: #### CMPX, MG #### [place] [address] Pupil Personnel Services Director: Antwan Rice MDPotassium [Moles/Vol]3.5 mmol/LLow3.7-5.3MIndian Valley HospitalComment on above:Performed By: #### CMPX, MG #### [place] [address] Pupil Personnel Services Director: Antwan Rice MDProtein [Mass/Vol]7.8 g/dLNormal6.6-8.7[facility] Ferry HospitalComment on above:Performed By: #### CMPX, MG #### [place] [address] Pupil Personnel Services Director: Antwan Rice MDSodium [Moles/Vol]137 mmol/VLdxeix766-112KnjecMartins Ferry HospitalComment on above:Performed By: #### CMPX, MG #### [place] [address] Pupil Personnel Services Director: Antwan Rice MDUrea nitrogen [Mass/Vol]11 mg/dLNormal6-20[facility] HospitalComment on above:Performed By: #### CMPX, MG #### [facility] [address] [place] [address] Pupil Personnel Services Director: Afshin Averygnesiumon 17-89-3384Uzlidjffo [Mass/Vol]2.4 mg/dLNormal1.6-2.6[facility] CenterComment on above:Performed By: #### MG, PRCAL, CDP, BMPX #### [facility] [address] [place] [address] Pupil Personnel Services Director: Antwan Rice MDMagnesium [Mass/Vol]2.4 mg/dLNormal1.6-2.6[facility] hospitaly [facility] CenterComment on above:Performed By: #### CMPX, MG #### [facility] [address] [place] [address] Pupil Personnel Services Director: YULY Averyrocalcitoninon 82-86-4049Wienljnkhbpwf8.13 ng/mLHigh0.00-0.09Mart[facility] Ferry HospitalComment on above:Result Comment: Suspected Sepsis: <0.50 ng/mL Low likelihood [...] entered into the Change in Procalcitonin Calculator ([email or web address]-[email or web address].com) to determine the patient's Mortality Risk Prognosis In healthy neonates, plasma Procalcitonin (PCT) concentrations increase gradually after , reaching peak values at about 24 hours of age then decrease to normal values below 0.5 ng/mL by 48-72 hours of age.Performed By: #### MG, PRCAL, CDP, BMPX #### [facility] [place] [address] Pupil Personnel Services Director: Antwan Rice MDAlansusan aminotransferase [Enzymatic activity/volume] in Serum or PlasmaOrdered By: Yayo Taylor on 04-88-2427SJH [Catalytic activity/Vol]12 U/L7-52[facility] HospitalAlbumin [Mass/volume] in Serum or Plasma by Bromocresol green (BCG) dye binding metho Ordered By: Yayo Taylor on 27-73-5470Itubnnl BCG dye [Mass/Vol]4.6 g/dL 3.5-5.7FTrinity Health SystemAlkaline phosphatase [Enzymatic activity/volume] in Serum or PlasmaOrdered By: Yayo Taylor on 89-47-7113ZYX [Catalytic activity/Vol]79 U/O46-838RbxucbyxtCleveland Clinic Marymount HospitalAspartate aminotransferase [Enzymatic activity/volume] in Serum or PlasmaOrdered By: Yayo Taylor on 69-33-8281ZRB [Catalytic activity/Vol]15 U/H02-07CxhomljeqCleveland Clinic Marymount HospitalBasophils Auto (Bld) [#/Vol]Ordered By: Yayo Taylor on 20-62-0259Cjdtneoba (Bld) [#/Vol]0.0 10*3/uL0.0-0.2FTrinity Health SystemBasophils/100 WBC Auto (Bld)Ordered By: Yayo Taylor on 12-06-2022 Basophils/100 WBC (Bld)0.6 %.[facility] HospitalBilirubin.total [Mass/volume] in Serum or PlasmaOrdered By: Yayo Taylor on 12-06-2022 Bilirubin [Mass/Vol]0.3 mg/dL0.3-1.0[facility] HospitalCalcium [Mass/volume] in Serum or PlasmaOrdered By: Yayo Taylor on 88-43-5489Cvcbuof [Mass/Vol]9.6 mg/dL8.6-10.3FTrinity Health SystemCarbon dioxide, total [Moles/volume] in Serum or PlasmaOrdered By: Yayo Taylor on 12-06-2022 CO2 [Moles/Vol]29.0 mmol/L21.0-31.0[facility] HospitalChloride [Moles/volume] in Serum or PlasmaOrdered By: Yayo Taylor on 12-06-2022 Chloride [Moles/Vol]105 mmol/Q32-681WtphqttosCleveland Clinic Marymount HospitalComplete Blood Count Auto Diffon 07-38-2585Qdgcuckdw (Bld) [#/Vol]0.0 10*3/uLNormal 0.0-0.2FTrinity Health SystemComment on above:Performed By: #### CBC, CMP, ESR #### [facility] [address] [place] [address] USABasophils/100 WBC (Bld)0.6 %Normal.[facility] HospitalComment on above:Performed By: #### CBC, CMP, ESR #### [facility] [address] [place] [address] USAEosinophils (Bld) [#/Vol]0.2 10*3/uLNormal0.0-0.45 [facility] HospitalComment on above:Performed By: #### CBC, CMP, ESR #### [facility] [address] [place] [address] USAEosinophils/100 WBC (Bld)2.7 %Normal.[facility] HospitalComment on above:Performed By: #### CBC, CMP, ESR #### [facility] [address] [place] [address] USAErythrocyte distribution width (RBC) [Ratio]14.2 %Normal 11.9-15.3FTrinity Health SystemComment on above:Performed By: #### CBC, CMP, ESR #### [facility] [address] [place] [address] USAHematocrit (Bld) [Volume fraction]38.4 %Hxfkdp06.0-46.4 [facility] HospitalComment on above:Performed By: #### CBC, CMP, ESR #### [place] [address] USAHemoglobin (Bld) [Mass/Vol]12.7 g/pTIxivsh90.8-15.4 [facility] HospitalComment on above:Performed By: #### CBC, CMP, ESR #### [facility] [address] [place] [address] USALymphocytes (Bld) [#/Vol]2.4 10*3/uLNormal1.00-4.8 [facility] HospitalComment on above:Performed By: #### CBC, CMP, ESR #### [place] [address] USALymphocytes/100 WBC (Bld)32.4 %Normal.[facility] HospitalComment on above:Performed By: #### CBC, CMP, ESR #### [place] [address] USAMCH (RBC) [Entitic mass]28.5 baNrahnx42.7-34.3FTrinity Health SystemComment on above:Performed By: #### CBC, CMP, ESR #### [place] [address] USAMCV (RBC) [Entitic vol]86.3 qAVhawmz83-359GjvpbpsikCleveland Clinic Marymount HospitalComment on above:Performed By: #### CBC, CMP, ESR #### [place] [address] USAMean Corpuscular HGB Conc33.0 g/nJEvfhro89.0-35.0[facility] HospitalComment on above:Performed By: #### CBC, CMP, ESR #### [place] [address] USAMonocytes (Bld) [#/Vol]0.5 10*3/uLNormal0.0-0.8[facility] HospitalComment on above:Performed By: #### CBC, CMP, ESR #### [place] [address] USAMonocytes/100 WBC (Bld)6.3 %Normal.[facility] HospitalComment on above:Performed By: #### CBC, CMP, ESR #### [facility] [address] [place] [address] USANeutrophils (Bld) [#/Vol]4.3 10*3/uLNormal1.8-7.7FTrinity Health SystemComment on above:Performed By: #### CBC, CMP, ESR #### [facility] [address] [place] [address] USANeutrophils/100 WBC (Bld)58.0 %Normal.[facility] HospitalComment on above:Performed By: #### CBC, CMP, ESR #### [facility] [address] [place] [address] USANRBC%0.0 /100{WBC}Normal0-0.5FTrinity Health SystemComment on above:Performed By: #### CBC, CMP, ESR #### [facility] [address] [place] [address] USAPlatelet mean volume (Bld) [Entitic vol]7.6 fLNormal 6.3-10.7FTrinity Health SystemComment on above:Performed By: #### CBC, CMP, ESR #### [place] [address] USAPlatelets (Bld) [#/Vol]368 10*3/xIEwtviq485-456ZoksptaqeCleveland Clinic Marymount HospitalComment on above:Performed By: #### CBC, CMP, ESR #### [facility] [address] [place] [address] USARBC (Bld) [#/Vol]4.45 10*6/uLNormal3.60-5.00[facility] HospitalComment on above:Performed By: #### CBC, CMP, ESR #### [facility] [address] [place] [address] USAWBC (Bld) [#/Vol]7.4 10*3/uLNormal3.8-11.6FTrinity Health SystemComment on above:Performed By: #### CBC, CMP, ESR #### [place] [address] USAComprehensive Metabolic Panelon 71-55-4867Drcfglp [Mass/Vol]4.6 g/dLNormal3.5-5.7FTrinity Health SystemComment on above:Performed By: #### CBC, CMP, ESR #### [facility] [address] [place] [address] USAAlbumin/Globulin [Mass ratio]1.9 {ratio}NormalCleveland Clinic Marymount HospitalComment on above:Performed By: #### CBC, CMP, ESR #### [facility] [address] [place] [address] USAALP [Catalytic activity/Vol]79 U/FAoecne80-009GxsdslhqsCleveland Clinic Marymount HospitalComment on above:Result Comment: PERFORMED BY: [place] [address] PATHOLOGIST TRANSPORT OPERATIONS INSPECTOR FELICIANO PIERCE M.D.Performed By: #### CBC, CMP, ESR #### [place] [address] USAALT [Catalytic activity/Vol]12 U/LNormal7-52[facility] HospitalComment on above:Performed By: #### CBC, CMP, ESR #### [facility] [address] [place] [address] USAAnion gap [Moles/Vol]10.1 mmol/LNormal6.0-15.0[facility] HospitalComment on above:Performed By: #### CBC, CMP, ESR #### [facility] [address] [place] [address] USAAST [Catalytic activity/Vol]15 U/XDjphfi84-78VckanilhmCleveland Clinic Marymount HospitalComment on above:Performed By: #### CBC, CMP, ESR #### [facility] [address] [place] [address] USABilirubin [Mass/Vol]0.3 mg/dLNormal0.3-1.0[facility] HospitalComment on above:Performed By: #### CBC, CMP, ESR #### [facility] [address] [place] [address] USACalcium [Mass/Vol]9.6 mg/dLNormal8.6-10.3FTrinity Health SystemComment on above:Performed By: #### JENNA CMP, ESR #### [facility] [address] [place] [address] USAChloride [Moles/Vol]105 mmol/FOzxkvz91-982HysbqcmcgCleveland Clinic Marymount HospitalComment on above:Performed By: #### CBC CMP, ESR #### [facility] [address] [place] [address] USACO2 [Moles/Vol]29.0 mmol/BPjliwo85.0-31.0[facility] HospitalComment on above:Performed By: #### JENNA CMP, ESR #### [facility] [address] [place] [address] USACreatinine [Mass/Vol]0.89 mg/dLNormal0.60-1.20[facility] HospitalComment on above:Performed By: #### JENNA CMP, ESR #### [facility] [address] [place] [address] USAGFR/1.73 sq M.predicted MDRD (S/P/Bld) [Vol rate/Area] mL/min/{1.73_m2}[facility] HospitalComment on above: Performed By: #### JENNA CMP, ESR #### [place] [address] USAGlobulin (S) [Mass/Vol]2.4 g/dLNormalCleveland Clinic Marymount HospitalComment on above:Performed By: #### CBC, CMP, ESR #### [facility] [address] [place] [address] USAGlucose [Mass/Vol]83 mg/zAIjeqfo65-106AnmqdabzwCleveland Clinic Marymount HospitalComment on above:Result Comment: Random Glucose Reference Range is dependent on time and content of last meal. Glucose of more than 200 mg/dL in a nonstressed, ambulatory subject supports the diagnosis of Diabetes Mellitus. ADA recommended reference rangePerformed By: #### CBC, CMP, ESR #### [facility] [address] [place] [address] USAPotassium [Moles/Vol]4.1 mmol/LNormal3.5-5.1FTrinity Health SystemComment on above:Performed By: #### CBC, CMP, ESR #### [facility] [address] [place] [id number] USAProtein [Mass/Vol]7.0 g/dLNormal6.4-8.9[facility] HospitalComment on above:Performed By: #### CBC, CMP, ESR #### [facility] [address] [place] [address] USASodium [Moles/Vol]140 mmol/LVryvkc913-158SliqblnusCleveland Clinic Marymount HospitalComment on above:Performed By: #### CBC, CMP, ESR #### [facility] [address] [place] [address] USAUrea nitrogen [Mass/Vol]15 mg/dLNormal7-25[facility] HospitalComment on above:Performed By: #### CBC, CMP, ESR #### [facility] [address] [place] [id number] USACreatinine [Mass/volume] in Serum or PlasmaOrdered By: Yayo Taylor on 94-85-7266Zkiavowete [Mass/Vol]0.89 mg/dL0.60-1.20[facility] HospitalEosinophils Auto (Bld) [#/Vol]Ordered By: Yayo Taylor on 05-25-2305Clizpbxidoz (Bld) [#/Vol]0.2 10*3/uL0.0-0.45[facility] HospitalEosinophils/100 WBC Auto (Bld)Ordered By: Yayo Taylor on 93-13-7390Kslkxxvxszy/100 WBC (Bld)2.7 %.[facility] Erythrocyte Sedimentation Rateon 47-00-0454SKB (Bld) [Velocity]27 mm/hNormal0-29 [facility] HospitalComment on above:Result Comment: PERFORMED BY: [place] [address] PATHOLOGIST TRANSPORT OPERATIONS INSPECTOR FELICIANO PIERCE M.D.Performed By: #### CBC, CMP, ESR #### [facility] [address]Erythrocyte distribution width Auto (RBC) [Ratio]Ordered By: Yayo Taylor on 91-63-3847Hifbibjphxb distribution width (RBC) [Ratio]14.2 %11.9-15.3FTrinity Health SystemErythrocyte sedimentation rate by Photometric methodOrdered By: Yayo Taylor on 45-66-5299PVF Photometric method (Bld) [Velocity]27 mm/hr0-29[facility] HospitalGlobulin Calc (S) [Mass/Vol]Ordered By: Yayo Taylor on 52-69-3802Uprmvxwj (S) [Mass/Vol]2.4 g/dLCleveland Clinic Marymount HospitalGlucose [Mass/volume] in Serum or Plasma Ordered By: Yayo Taylor on 86-68-6289Nmkpolk [Mass/Vol]83 mg/xN07-483 [facility] HospitalComment on above:ADA recommended reference rangeRandom Glucose Reference Range is dependent on time and content of last meal. Glucose of more than 200 mg/dL in a nonstressed, ambulatory subject supports the diagnosisof Diabetes Mellitus.Hematocrit Auto (Bld) [Volume fraction]Ordered By: Yayo Taylor on 87-49-8512Bjcbdkfgrr (Bld) [Volume fraction]38.4 %34.0-46.4FTrinity Health SystemHemoglobin [Mass/volume] in BloodOrdered By: Yayo Taylor on 21-84-5128Vllqvqdgte (Bld) [Mass/Vol]12.7 g/dL11.8-15.4FTrinity Health SystemLeukocytes [#/volume] corrected for nucleated erythrocytes in Blood by Automated coun Ordered By: Yayo Taylor on 34-94-2983SBG corrected for nucl RBC Auto (Bld) [#/Vol]7.4 10*3/uL3.8-11.6FTrinity Health SystemLymphocytes Auto (Bld) [#/Vol]Ordered By: Yayo Taylor on 21-58-5928Nqtmnvwuycf (Bld) [#/Vol] 2.4 10*3/uL1.00-4.8[facility] HospitalLymphocytes/100 WBC Auto (Bld)Ordered By: Yayo Taylor on 76-74-8700Hmlmwrgdexg/100 WBC (Bld)32.4 %. [facility]imaH Auto (RBC) [Entitic mass]Ordered By: Yayo Taylor on 01-19-4711DIJ (RBC) [Entitic mass]28.5 pg24.7-34.3FTrinity Health SystemMCHC Auto (RBC) [Mass/Vol]Ordered By: Yayo Taylor on 28-30-6422IXTH (RBC) [Mass/Vol]33.0 g/dL32.0-35.0[facility] HospitalMCV Auto (RBC) [Entitic vol]Ordered By: Yayo Taylor on 01-27-8292MBK (RBC) [Entitic vol]86.3 yJ56-245ZgyswhoorCleveland Clinic Marymount HospitalMonocytes Auto (Bld) [#/Vol]Ordered By: Yayo Taylor on 45-48-9873Pgicvnfgf (Bld) [#/Vol]0.5 10*3/uL0.0-0.8[facility] HospitalMonocytes/100 WBC Auto (Bld) Ordered By: Yayo Taylor on 59-07-4670Fgjswgazj/100 WBC (Bld)6.3 %.[facility] HospitalNeutrophils Auto (Bld) [#/Vol]Ordered By: Yayo Taylor on 80-69-7466Pqwkvhjpxrb (Bld) [#/Vol]4.3 10*3/uL1.8-7.7FTrinity Health SystemNeutrophils/100 WBC Auto (Bld)Ordered By: Yayo Taylor on 21-24-6983Vnzfupdvnvj/100 WBC (Bld)58.0 %.[facility] HospitalNo Panel InformationOrdered By: Yayo Taylor on 64-41-6469Mbfzgbaxc GFR (CKD-EPI) > 60.0 mL/MinCleveland Clinic Marymount HospitalPharmacy Creatinine Clearance (ChemN/AFTrinity Health SystemNucleated erythrocytes [Presence] in Blood by Automated countOrdered By: Yayo Taylor on 99-23-8915Mtzitmysp RBC Auto Ql (Bld)0.0 /100{WBC}0-0.5FTrinity Health SystemPlatelet mean volume Auto (Bld) [Entitic vol]Ordered By: Yayo Taylor on 25-98-2100Qtzgylgq mean volume (Bld) [Entitic vol]7.6 fL6.3-10.7FTrinity Health System Platelets Auto (Bld) [#/Vol]Ordered By: Yayo Taylor on 95-84-6459Yxrsygypv (Bld) [#/Vol]368 10*3/dN273-472LigmleuxgCleveland Clinic Marymount HospitalPotassium [Moles/volume] in Serum or PlasmaOrdered By: Yayo Taylor on 12-06-2022 Potassium [Moles/Vol]4.1 mmol/L3.5-5.1FTrinity Health SystemProtein [Mass/volume] in Serum or PlasmaOrdered By: Yayo Taylor on 64-08-9522Iqdhmez [Mass/Vol]7.0 g/dL6.4-8.9[facility] HospitalRBC Auto (Bld) [#/Vol] Ordered By: Yayo Taylor on 02-24-9276PPF (Bld) [#/Vol]4.45 10*6/uL3.60-5.00 [facility] Healtherum or plasma albumin/globulin mass ratio Ordered By: Yayo Taylor on 77-87-9852Ckqkltv/Globulin [Mass ratio]1.9 {ratio} [facility] Healtherum or plasma anion gap determinationOrdered By: Yayo Taylor on 48-51-9833Fdtbr gap [Moles/Vol]10.1 mmol/L6.0-15.0 [facility] Healthodium [Moles/volume] in Serum or PlasmaOrdered By: Yayo Taylor on 40-58-4197Dwnqqg [Moles/Vol]140 mmol/O618-283ChfpononrCleveland Clinic Marymount HospitalUrea nitrogen [Mass/volume] in Serum or PlasmaOrdered By: Yayo Taylor on 42-08-5978Rzxq nitrogen [Mass/Vol]15 mg/dL7-25[facility] HospitalWBC Auto (Bld) [#/Vol]Ordered By: Yayo Taylor on 51-28-8453KQC (Bld) [#/Vol]7.4 10*3/uL3.8-11.6FTrinity Health System Alanine aminotransferase [Enzymatic activity/volume] in Serum or PlasmaOrdered By: Yayo Taylor on 52-38-1498TRA [Catalytic activity/Vol]11 U/L7-52[facility] HospitalAlbumin [Mass/volume] in Serum or Plasma by Bromocresol green (BCG) dye binding methoOrdered By: Yayo Taylor on 28-53-7841Urchoyz BCG dye [Mass/Vol]4.1 g/dL3.5-5.7FTrinity Health SystemAlkaline phosphatase [Enzymatic activity/volume] in Serum or PlasmaOrdered By: Yayo Taylor on 25-52-9874CWN [Catalytic activity/Vol]84 U/J06-963KsowbgfjxCleveland Clinic Marymount HospitalAspartate aminotransferase [Enzymatic activity/volume] in Serum or PlasmaOrdered By: Yayo Taylor on 92-63-5442XCU [Catalytic activity/Vol]16 U/L 13-39[facility] HospitalBasophils Auto (Bld) [#/Vol]Ordered By: Yayo Taylor on 50-69-8962Oyucsjfej (Bld) [#/Vol]0.1 10*3/uL0.0-0.2FTrinity Health SystemBasophils/100 WBC Auto (Bld)Ordered By: Yayo Taylor on 41-69-3577Qlbpmmxdl/100 WBC (Bld)0.9 %.[facility] Bilirubin.total [Mass/volume] in Serum or PlasmaOrdered By: Yayo Taylor on 93-18-2726Pscawfxzu [Mass/Vol]0.3 mg/dL0.3-1.0[facility] Calcium [Mass/volume] in Serum or PlasmaOrdered By: Yayo Taylor on 10-03-2022 Calcium [Mass/Vol]8.5 mg/dL8.6-10.3FTrinity Health SystemCarbon dioxide, total [Moles/volume] in Serum or PlasmaOrdered By: Yayo Taylor on 11-64-5454QS6 [Moles/Vol]27.2 mmol/L21.0-31.0[facility] Chloride [Moles/volume] in Serum or PlasmaOrdered By: Yayo Taylor on 44-06-6896Ckzproke [Moles/Vol]106 mmol/D35-279CrvsfuiptCleveland Clinic Marymount Hospital Complete Blood Count Auto Diffon 39-08-4706Nbfnjosgj (Bld) [#/Vol]0.1 10*3/uL Normal0.0-0.2FTrinity Health SystemComment on above:Performed By: #### CBC, CMP, ESR #### [facility] [address] [place] [address] USABasophils/100 WBC (Bld)0.9 %Normal.[facility] HospitalComment on above:Performed By: #### CBC, CMP, ESR #### [facility] [address] [place] [address] USAEosinophils (Bld) [#/Vol]0.4 10*3/uLNormal0.0-0.45 [facility] HospitalComment on above:Performed By: #### CBC, CMP, ESR #### [facility] [address] [place] [address] USAEosinophils/100 WBC (Bld)5.0 %Normal.[facility] HospitalComment on above:Performed By: #### CBC, CMP, ESR #### [facility] [address] [place] [address] USAErythrocyte distribution width (RBC) [Ratio]14.7 %Normal 11.9-15.3FTrinity Health SystemComment on above:Performed By: #### CBC, CMP, ESR #### [facility] [address] [place] [address] USAHematocrit (Bld) [Volume fraction]36.3 %Iytptn17.0-46.4 [facility] HospitalComment on above:Performed By: #### CBC, CMP, ESR #### [facility] [address] [place] [address] USAHemoglobin (Bld) [Mass/Vol]12.3 g/pEFvgovi23.8-15.4 [facility] HospitalComment on above:Performed By: #### CBC, CMP, ESR #### [place] [address] USALymphocytes (Bld) [#/Vol]2.1 10*3/uLNormal1.00-4.8 [facility] HospitalComment on above:Performed By: #### CBC, CMP, ESR #### [place] [address] USALymphocytes/100 WBC (Bld)29.3 %Normal.[facility] HospitalComment on above:Performed By: #### CBC, CMP, ESR #### [address] StreetMCH (RBC) [Entitic mass]29.4 zhQzhzfq47.7-34.3FTrinity Health SystemComment on above:Performed By: #### CBC, CMP, ESR #### [place] [address] USAMCV (RBC) [Entitic vol]86.4 lNCqthfa37-132IdbrvteaqCleveland Clinic Marymount HospitalComment on above:Performed By: #### CBC, CMP, ESR #### [place] [address] USAMean Corpuscular HGB Conc34.0 g/sEKrakzz31.0-35.0[facility] HospitalComment on above:Performed By: #### CBC, CMP, ESR #### [place] [address] USAMonocytes (Bld) [#/Vol]0.5 10*3/uLNormal0.0-0.8[facility] HospitalComment on above:Performed By: #### CBC, CMP, ESR #### [place] [address] USAMonocytes/100 WBC (Bld)7.3 %Normal.[facility] HospitalComment on above:Performed By: #### CBC, CMP, ESR #### [place] [address] USANeutrophils (Bld) [#/Vol]4.1 10*3/uLNormal1.8-7.7FTrinity Health SystemComment on above:Performed By: #### CBC, CMP, ESR #### [facility] [address] [place] [address] USANeutrophils/100 WBC (Bld)57.5 %Normal.[facility] HospitalComment on above:Performed By: #### CBC, CMP, ESR #### [facility] [address] [place] [address] USANRBC%0.3 /100{WBC}Normal0-0.5FTrinity Health SystemComment on above:Performed By: #### CBC, CMP, ESR #### [facility] [address] [place] [address] USAPlatelet mean volume (Bld) [Entitic vol]7.9 fLNormal 6.3-10.7FTrinity Health SystemComment on above:Performed By: #### CBC, CMP, ESR #### [facility] [address] [place] [address] USAPlatelets (Bld) [#/Vol]369 10*3/zVHnadka488-032EdwsclnwvCleveland Clinic Marymount HospitalComment on above:Performed By: #### CBC, CMP, ESR #### [place] [address] USARBC (Bld) [#/Vol]4.20 10*6/uLNormal3.60-5.00[facility] HospitalComment on above:Performed By: #### CBC, CMP, ESR #### [place] [address] USAWBC (Bld) [#/Vol]7.1 10*3/uLNormal3.8-11.6FTrinity Health SystemComment on above:Performed By: #### CBC, CMP, ESR #### [place] [address] USAComprehensive Metabolic Panelon 47-26-1875Pmihbfj [Mass/Vol]4.1 g/dLNormal3.5-5.7FTrinity Health SystemComment on above:Performed By: #### CBC, CMP, ESR #### [facility] [address] [place] [address] USAAlbumin/Globulin [Mass ratio]1.6 {ratio}NormalCleveland Clinic Marymount HospitalComment on above:Performed By: #### CBC, CMP, ESR #### [facility] [address] [place] [address] USAALP [Catalytic activity/Vol]84 U/JEvunjm90-985XdigvrcjmCleveland Clinic Marymount HospitalComment on above:Result Comment: PERFORMED BY: [place] [address] PATHOLOGIST TRANSPORT OPERATIONS INSPECTOR FELICIANO PIERCE M.D.Performed By: #### CBC, CMP, ESR #### [facility] [address] [place] [address] USAALT [Catalytic activity/Vol]11 U/LNormal7-52[facility] HospitalComment on above:Performed By: #### CBC, CMP, ESR #### [facility] [address] [place] [address] USAAnion gap [Moles/Vol]10.7 mmol/LNormal6.0-15.0[facility] HospitalComment on above:Performed By: #### CBC, CMP, ESR #### [facility] [address] [place] [address] USAAST [Catalytic activity/Vol]16 U/KBsokgw27-17TxvwtzessCleveland Clinic Marymount HospitalComment on above:Performed By: #### CBC, CMP, ESR #### [facility] [address] [place] [address] USABilirubin [Mass/Vol]0.3 mg/dLNormal0.3-1.0[facility] HospitalComment on above:Performed By: #### CBC, CMP, ESR #### [facility] [address] [place] [address] USACalcium [Mass/Vol]8.5 mg/dLLow8.6-10.3FTrinity Health SystemComment on above:Performed By: #### CBC, CMP, ESR #### [facility] [address] [place] [address] USAChloride [Moles/Vol]106 mmol/ANrolwn27-516HaohluzdoCleveland Clinic Marymount HospitalComment on above:Performed By: #### CBC, CMP, ESR #### [facility] [address] [place] [id number] USACO2 [Moles/Vol]27.2 mmol/SWavwgi43.0-31.0[facility] HospitalComment on above:Performed By: #### CBC, CMP, ESR #### [facility] [address] [place] [address] USACreatinine [Mass/Vol]0.88 mg/dLNormal0.60-1.20[facility] HospitalComment on above:Performed By: #### JENNA, CMP, ESR #### [facility] [address] [place] [address] USAGFR/1.73 sq M.predicted MDRD (S/P/Bld) [Vol rate/Area] mL/min/{1.73_m2}NormalCleveland Clinic Marymount HospitalComment on above: Performed By: #### JENNA CMP, ESR #### [facility] [address] [place] [address] USAGlobulin (S) [Mass/Vol]2.6 g/dLNormalCleveland Clinic Marymount HospitalComment on above:Performed By: #### CBC, CMP, ESR #### [facility] [address] [place] [address] USAGlucose [Mass/Vol]98 mg/xCJaapnw64-291QmxokvfahCleveland Clinic Marymount HospitalComment on above:Result Comment: Random Glucose Reference Range is dependent on time and content of last meal. Glucose of more than 200 mg/dL in a nonstressed, ambulatory subject supports the diagnosis of Diabetes Mellitus. ADA recommended reference rangePerformed By: #### CBC, CMP, ESR #### [facility] [address] [place] [address] USAPotassium [Moles/Vol]3.9 mmol/LNormal3.5-5.1FTrinity Health SystemComment on above:Performed By: #### CBC, CMP, ESR #### [facility] [address] [place] [address] USAProtein [Mass/Vol]6.7 g/dLNormal6.4-8.9[facility] HospitalComment on above:Performed By: #### CBC, CMP, ESR #### [facility] [address] [place] [address] USASodium [Moles/Vol]140 mmol/UMjdtwg133-618JvrxmbspmCleveland Clinic Marymount HospitalComment on above:Performed By: #### CBC, CMP, ESR #### [facility] [address] [place] [address] USAUrea nitrogen [Mass/Vol]20 mg/dLNormal7-25[facility] HospitalComment on above:Performed By: #### CBC, CMP, ESR #### [place] [address] USACreatinine [Mass/volume] in Serum or PlasmaOrdered By: Yayo Taylor on 84-51-8943Rellgzvymn [Mass/Vol]0.88 mg/dL0.60-1.20[facility] HospitalEosinophils Auto (Bld) [#/Vol]Ordered By: Yayo Taylor on 98-17-5619Hrxljmmivbl (Bld) [#/Vol]0.4 10*3/uL0.0-0.45[facility] HospitalEosinophils/100 WBC Auto (Bld)Ordered By: Yayo Taylor on 61-92-1939Jyitniguwzp/100 WBC (Bld)5.0 %.[facility] Erythrocyte Sedimentation Rateon 10-59-7454SEN (Bld) [Velocity]22 mm/hNormal0-29 [facility] HospitalComment on above:Result Comment: PERFORMED BY: [place] [address] PATHOLOGIST TRANSPORT OPERATIONS INSPECTOR FELICIANO PIERCE M.D.Performed By: #### CBC, CMP, ESR #### [facility] [address] [place] [address] USAErythrocyte distribution width Auto (RBC) [Ratio]Ordered By: Yayo Taylor on 86-03-9816Wuxwfldkvsq distribution width (RBC) [Ratio]14.7 %11.9-15.3FTrinity Health SystemErythrocyte sedimentation rate by Photometric methodOrdered By: Yayo Taylor on 15-63-9746FWB Photometric method (Bld) [Velocity]22 mm/hr0-29[facility] HospitalGlobulin Calc (S) [Mass/Vol]Ordered By: Yayo Taylor on 79-65-5478Baamruhx (S) [Mass/Vol]2.6 g/dLCleveland Clinic Marymount HospitalGlucose [Mass/volume] in Serum or Plasma Ordered By: Yayo Taylor on 77-73-7574Rcxbiln [Mass/Vol]98 mg/xZ10-892 [facility] HospitalComment on above:ADA recommended reference rangeRandom Glucose Reference Range is dependent on time and content of last meal. Glucose of more than 200 mg/dL in a nonstressed, ambulatory subject supports the diagnosisof Diabetes Mellitus.Hematocrit Auto (Bld) [Volume fraction]Ordered By: Yayo Taylor on 70-13-4624Oiklafwtil (Bld) [Volume fraction]36.3 %34.0-46.4FTrinity Health SystemHemoglobin [Mass/volume] in BloodOrdered By: Yayo Taylor on 28-61-7341Ajurykebfm (Bld) [Mass/Vol]12.3 g/dL11.8-15.4FTrinity Health SystemLeukocytes [#/volume] corrected for nucleated erythrocytes in Blood by Automated coun Ordered By: Yayo Taylor on 39-92-0110XHK corrected for nucl RBC Auto (Bld) [#/Vol]7.1 10*3/uL3.8-11.6FTrinity Health SystemLymphocytes Auto (Bld) [#/Vol]Ordered By: Yayo Taylor on 31-86-8827Tiohfxtyrdj (Bld) [#/Vol] 2.1 10*3/uL1.00-4.8[facility] HospitalLymphocytes/100 WBC Auto (Bld)Ordered By: Yayo Taylor on 96-67-5934Plsrwftwptp/100 WBC (Bld)29.3 %. [facility] HospitalMCH Auto (RBC) [Entitic mass]Ordered By: Yayo Taylor on 30-34-6383EGR (RBC) [Entitic mass]29.4 pg24.7-34.3FTrinity Health SystemMCHC Auto (RBC) [Mass/Vol]Ordered By: Yayo Taylor on 50-17-7067FGHE (RBC) [Mass/Vol]34.0 g/dL32.0-35.0[facility] HospitalMCV Auto (RBC) [Entitic vol]Ordered By: Yayo Taylor on 73-40-1508DJT (RBC) [Entitic vol]86.4 fG51-466HkyemsrdwCleveland Clinic Marymount HospitalMonocytes Auto (Bld) [#/Vol]Ordered By: Yayo Taylor on 30-62-7124Cjudyoqvg (Bld) [#/Vol]0.5 10*3/uL0.0-0.8[facility] HospitalMonocytes/100 WBC Auto (Bld) Ordered By: Yayo Taylor on 33-28-5749Dcawkwxip/100 WBC (Bld)7.3 %.[facility] HospitalNeutrophils Auto (Bld) [#/Vol]Ordered By: Yayo Taylor on 36-48-9167Dvlrjaiaohi (Bld) [#/Vol]4.1 10*3/uL1.8-7.7FTrinity Health SystemNeutrophils/100 WBC Auto (Bld)Ordered By: Yayo Taylor on 92-10-4548Dvscbemeffd/100 WBC (Bld)57.5 %.[facility] HospitalNo Panel InformationOrdered By: Yayo Taylor on 62-75-9492Kailthnyp GFR (CKD-EPI) > 60.0 mL/MinCleveland Clinic Marymount HospitalPharmacy Creatinine Clearance (ChemN/AFTrinity Health SystemNucleated erythrocytes [Presence] in Blood by Automated countOrdered By: Yayo Taylor on 99-16-2697Wilijryrm RBC Auto Ql (Bld)0.3 /100{WBC}0-0.5FTrinity Health SystemPlatelet mean volume Auto (Bld) [Entitic vol]Ordered By: Yayo Taylor on 19-38-7472Aqywlnsg mean volume (Bld) [Entitic vol]7.9 fL6.3-10.7FTrinity Health System Platelets Auto (Bld) [#/Vol]Ordered By: Yayo Taylor on 69-88-5083Ajqwmclre (Bld) [#/Vol]369 10*3/cU475-311JkucqjuxkCleveland Clinic Marymount HospitalPotassium [Moles/volume] in Serum or PlasmaOrdered By: Yayo Taylor on 10-03-2022 Potassium [Moles/Vol]3.9 mmol/L3.5-5.1FTrinity Health SystemProtein [Mass/volume] in Serum or PlasmaOrdered By: Yayo Taylor on 09-08-8765Dcpmvok [Mass/Vol]6.7 g/dL6.4-8.9[facility] HospitalRBC Auto (Bld) [#/Vol] Ordered By: Yayo Taylor on 49-02-9920QJN (Bld) [#/Vol]4.20 10*6/uL3.60-5.00 [facility] Healtherum or plasma albumin/globulin mass ratio Ordered By: Yayo Taylor on 54-72-5571Jwvgsjw/Globulin [Mass ratio]1.6 {ratio} [facility] Healtherum or plasma anion gap determinationOrdered By: Yayo Taylor on 38-02-0930Oyxvl gap [Moles/Vol]10.7 mmol/L6.0-15.0 [facility] Healthodium [Moles/volume] in Serum or PlasmaOrdered By: Yayo Taylor on 66-37-1326Almbix [Moles/Vol]140 mmol/P367-506RsqkejwcwCleveland Clinic Marymount HospitalUrea nitrogen [Mass/volume] in Serum or PlasmaOrdered By: Yayo Taylor on 14-94-1303Sitv nitrogen [Mass/Vol]20 mg/dL7-25[facility] HospitalWBC Auto (Bld) [#/Vol]Ordered By: Yayo Taylor on 06-00-3723LZG (Bld) [#/Vol]7.1 10*3/uL3.8-11.6FTrinity Health System US BREAST RIGHT LIMITEDon 53-08-3643FK BREAST RIGHT LIMITEDPatient: CATHIE ORTEGA Exam Date: 08/18/2022 : 1970 Gender:F 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 Dictated by: West Mcdonald MD on 08/18/2022 at 09:00 Approved by: West Mcdonald MD on 08/18/2022 at 09:07[facility] AUTO DIFFon 00-92-2657PAEO #0.0 103/ulNormal0.0-0.1[facility] Mary HospitalComment on above:Performed By: #### AST, ALT, LIPID #### [facility] [address] [place] [address] Dr. Luis Daniel Martinezphils/100 WBC (Bld)0.4 %Normal0.2-2.0[facility] Comment on above:Performed By: #### AST, ALT, LIPID #### [facility] [address] [place] [address] Dr. Luis Daniel Edgar #0.2 103/ulNormal0.0-0.7The [facility]oples HospitalComment on above: Performed By: #### AST, ALT, LIPID #### [facility] [address] [place] [address] Dr. Luis Daniel Bianchiosinophils/100 WBC (Bld)2.3 %Normal0.9-7.0The [facility] Comment on above:Performed By: #### AST, ALT, LIPID #### [facility] [address] [place] [address] Dr. Luis Daniel Bianchirythrocyte distribution width (RBC) [Ratio]13.7 %Bppxqu74.0-15.0 The Peoples HospitalComment on above:Performed By: #### AST, ALT, LIPID #### [facility] [address] [place] [address] Dr. Luis Daniel SinHematocrit (Bld) [Volume fraction]37.3 %Ycxmpo67.0-48.0The [facility]oples HospitalComment on above:Performed By: #### AST, ALT, LIPID #### [facility] [address] [place] [address] Dr. Luis Daniel SinHemoglobin (Bld) [Mass/Vol]12.3 g/gXVxuzdb84.0-16.0The [facility] HospitalComment on above:Performed By: #### AST, ALT, LIPID #### [facility] [address] [place] [address] Dr. Luis Daniel Fernando #0.02 10e3/ulNormal0.00-0.03The [facility]oples HospitalComment on above:Performed By: #### AST, ALT, LIPID #### [facility] [address] [place] [address] Dr. Luis Daniel Fernando %0.2 %Normal0.0-0.5The [facility]oples HospitalComment on above: Performed By: #### AST, ALT, LIPID #### [facility] [address] [place] [address] Dr. Luis Daniel Salcedo #2.9 103/ulNormal1.2-3.8The [facility] HospitalComment on above:Performed By: #### AST, ALT, LIPID #### [facility] [address] [place] [address] Dr. Luis Daniel Regaladohocytes/100 WBC (Bld)31.8 %Nfzxno81.5-60.0The [facility]oples HospitalComment on above:Performed By: #### AST, ALT, LIPID #### [facility] [address] [place] [address] Dr. Luis Daniel Schneider DIFF REQNONormalThe Peoples HospitalComment on above: Performed By: #### AST, ALT, LIPID #### [facility] [address] [place] [address] Dr. Luis Daniel Zheng (RBC) [Entitic mass]28.1 snWrjldb54.7-34.0The [facility] HospitalComment on above:Performed By: #### AST, ALT, LIPID #### [facility] [address] [place] [address] Dr. Luis Daniel Zheng (RBC) [Mass/Vol]33.0 g/vCWpslwu51.9-35.2The [facility] HospitalComment on above:Performed By: #### AST, ALT, LIPID #### [facility] [address] [place] [address] Dr. Luis Daniel Zheng (RBC) [Entitic vol]85.2 jEIhnddd19.0-99.0The [facility] HospitalComment on above:Performed By: #### AST, ALT, LIPID #### [facility] [address] [place] [address] Dr. Luis Daniel Morel #0.8 103/ulNormal0.3-0.8The [facility] HospitalComment on above:Performed By: #### AST, ALT, LIPID #### [facility] [address] [place] [address] Dr. Luis Daniel Batresocytes/100 WBC (Bld)8.4 %Normal1.7-12.0The [facility] Comment on above:Performed By: #### AST, ALT, LIPID #### [facility] [address] [place] [address] Dr. Luis Daniel Greenberg #5.1 103/ulNormal1.4-6.5The [facility]oples HospitalComment on above:Performed By: #### AST, ALT, LIPID #### [facility] [address] [place] [address] Dr. Luis Daniel SinNeutrophils/100 WBC (Bld)56.9 %Dnrnfe18.0-75.0The [facility]ment on above:Performed By: #### AST, ALT, LIPID #### [facility] [address] [place] [address] Dr. Luis Daniel SinPlatelet mean volume (Bld) [Entitic vol]9.0 fLCritically low 9.5-13.5The [facility] HospitalComment on above:Performed By: #### AST, ALT, LIPID #### [facility] [address] [place] [address] Dr. Luis Daniel SinPLT353 103/aaYekclh999-910Iwm [facility] Youngstownment on above: Performed By: #### AST, ALT, LIPID #### [facility] [address] [place] [address] Dr. Luis Daniel SinRBC4.38 106/ulNormal4.20-5.40The [facility] on above:Performed By: #### AST, ALT, LIPID #### [facility] [address] [place] [address] Dr. Luis Daniel SinWBC9.0 103/ulNormal4.0-11.0The [facility] on above: Performed By: #### AST, ALT, LIPID #### [facility] [address] [place] [address] Dr. Luis Daniel TeixeiraF 14(COMP METB)on 47-09-0863Hzanahp [Mass/Vol]3.9 g/dLNormal 3.4-5.0The [facility] on above:Performed By: #### CMP #### [facility] [address] [place] [address] Dr. Luis Daniel SinAlbumin/Globulin [Mass ratio]1.0 {ratio}NormalThe [facility] on above:Performed By: #### CMP #### [facility] [address] [place] [address] Dr. Luis Daniel Moreno [Catalytic activity/Vol]94 U/VCysqhz28-809Wns [facility]oples HospitalComment on above:Performed By: #### CMP #### [facility] [address] [place] [address] Dr. Luis Daniel CraigT [Catalytic activity/Vol]18 U/MOudbzs13-26Fia [facility]oples HospitalComment on above:Performed By: #### CMP #### [facility] [address] [place] [address] Dr. Luis Daniel Geiger gap [Moles/Vol]12.2 mmol/LNormalMount St. Mary [facility] Comment on above:Performed By: #### CMP #### [facility] [address] [place] [address] Dr. Luis Daniel SinAST [Catalytic activity/Vol]19 U/EPmfjqd88-53Lgf [facility] HospitalComment on above:Performed By: #### CMP #### [facility] [address] [place] [address] Dr. Luis Daniel SinBilirubin [Mass/Vol]0.3 mg/dLNormal0.2-1.0[facility] Comment on above:Performed By: #### CMP #### [facility] [address] [place] [address] Dr. Luis Daniel SinCalcium [Mass/Vol]9.3 mg/dLNormal8.5-10.1[facility] Comment on above:Performed By: #### CMP #### [facility] [address] [place] [address] Dr. Luis Daniel SinChloride [Moles/Vol]102 mmol/UJdojhc66-548Ijh [facility] Comment on above:Performed By: #### CMP #### [facility] [address] [place] [address] Dr. Luis Daniel SinCO2 [Moles/Vol]29.5 mmol/LXpkinm98.0-32.0The [facility] Comment on above:Performed By: #### CMP #### [facility] [address] [place] [address] Dr. Luis Daniel iSnCreatinine [Mass/Vol]0.93 mg/dLNormal0.55-1.02The [facility] HospitalComment on above:Performed By: #### CMP #### [facility] [address] [address] [address] Luis Daniel BianchiGFR-AF CANADIAN>60Normal>=60The [facility] HospitalComment on above:Performed By: #### CMP #### [facility] [address] [address] [address] Luis Daniel BianchiGFR-NON AF CANADIAN>60Normal>=60The [facility] HospitalComment on above:Performed By: #### CMP #### [facility] [address] [address] [address] Luis Daniel SinGlobulin (S) [Mass/Vol]3.8 g/dLNormalThe [facility]oples HospitalComment on above:Performed By: #### CMP #### [facility] [address] [place] [address] Dr. Luis Daniel SinGlucose [Mass/Vol]100 mg/bITjieer20-882Agc [facility] Comment on above:Performed By: #### CMP #### [facility] [address] [address] [address] Luis Daniel SinPotassium [Moles/Vol]3.7 mmol/LNormal3.5-5.1The [facility] Comment on above:Performed By: #### CMP #### [facility] [address] [address] [address] Luis Daniel SinProtein [Mass/Vol]7.7 g/dLNormal6.4-8.2The [facility] Comment on above:Performed By: #### CMP #### [facility] [address] [address] [address] Luis Daniel SinSodium [Moles/Vol]140 mmol/ALjshga537-323Sja [facility] Comment on above:Performed By: #### CMP #### [facility] [address] [address] [address] Luis Daniel SinUrea nitrogen [Mass/Vol]18.0 mg/dLNormal7.0-18.0The [facility] HospitalComment on above:Performed By: #### CMP #### [facility] [address] [place] [address] Dr. Luis Daniel SinUrea nitrogen/Creatinine [Mass ratio]19.4 mg/mgNormalThe Peoples HospitalComment on above:Performed By: #### CMP #### [facility] [address] [place] [address] Dr. Luis Daniel Gonzalez RATE WESTERGRENon 78-29-4886NFG RATE54 mm/hrCritically high <=30The Peoples HospitalComment on above:Performed By: #### AST, ALT, LIPID #### [facility] [address] [place] [address] Dr. Luis Daniel ParkerC AUTO DIFFon [id number] #0.1 103/ulNormal0.0-0.1The Peoples HospitalComment on above:Performed By: #### CBC #### [facility] [address] [place] [address] Dr. Luis Daniel SinBasophils/100 WBC (Bld)0.7 %Normal0.2-2.0[facility] Comment on above:Performed By: #### CBC #### [facility] [address] [place] [address] Dr. Luis Daniel Edgar #0.2 103/ulNormal0.0-0.7The [facility] on above: Performed By: #### CBC #### [facility] [address] [place] [address] Dr. Luis Daniel Bianchiosinophils/100 WBC (Bld)2.5 %Normal0.9-7.0[facility] Comment on above:Performed By: #### CBC #### [facility] [address] [place] [address] Dr. Luis Daniel Bianchirythrocyte distribution width (RBC) [Ratio]14.2 %Bzgbah56.0-15.0 The Peoples HospitalComment on above:Performed By: #### CBC #### [facility] [address] [place] [address] Dr. Luis Daniel SinHematocrit (Bld) [Volume fraction]41.1 %Hanpkb08.0-48.0The Peoples HospitalComment on above:Performed By: #### CBC #### [facility] [address] [place] [address] Dr. Luis Daniel SinHemoglobin (Bld) [Mass/Vol]13.5 g/nBOwjfal36.0-16.0The Peoples HospitalComment on above:Performed By: #### CBC #### [facility] [address] [place] [address] Dr. Luis Daniel SinIG #0.03 10e3/ulNormal0.00-0.03The Peoples HospitalComment on above:Performed By: #### CBC #### [facility] [address] [place] [address] Dr. Luis Daniel Fernando %0.4 %Normal0.0-0.5The Peoples HospitalComment on above: Performed By: #### CBC #### [facility] [address] [place] [address] Dr. Luis Daniel Salcedo #2.2 103/ulNormal1.2-3.8The Peoples HospitalComment on above:Performed By: #### CBC #### [facility] [address] [place] [address] Dr. Luis Daniel Tatummphocytes/100 WBC (Bld)26.0 %Grfcno96.5-60.0The Peoples HospitalComment on above:Performed By: #### CBC #### [facility] [address] [place] [address] Dr. Luis Daniel CrockettUAL DIFF REQNONormalThe Peoples HospitalComment on above: Performed By: #### CBC #### [facility] [address] [place] [address] Dr. Luis Daniel Zheng (RBC) [Entitic mass]28.6 wlCublja95.7-34.0The Peoples HospitalComment on above:Performed By: #### CBC #### [facility] [address] [place] [address] Dr. Luis Daniel Zheng (RBC) [Mass/Vol]32.8 g/lETxnong16.9-35.2The Peoples HospitalComment on above:Performed By: #### CBC #### [facility] [address] [place] [address] Dr. Luis Daniel ZhengV (RBC) [Entitic vol]87.1 xHRxxabx41.0-99.0The Peoples HospitalComment on above:Performed By: #### CBC #### [facility] [address] [place] [address] Dr. Luis Daniel Morel #0.6 103/ulNormal0.3-0.8The Peoples HospitalComment on above:Performed By: #### CBC #### [facility] [address] [place] [address] Dr. Luis Daniel Batresocytes/100 WBC (Bld)6.8 %Normal1.7-12.0[facility] Comment on above:Performed By: #### CBC #### [facility] [address] [place] [address] Dr. Luis Daniel Greenberg #5.3 103/ulNormal1.4-6.5The Peoples HospitalComment on above:Performed By: #### CBC #### [facility] [address] [place] [address] Dr. Luis Daniel Hamiltonutrophils/100 WBC (Bld)63.6 %Wbayfw33.0-75.0The Peoples HospitalComment on above:Performed By: #### CBC #### [facility] [address] [place] [address] Dr. Luis Daniel Marleylet mean volume (Bld) [Entitic vol]9.5 fLNormal9.5-13.5The Peoples HospitalComment on above:Performed By: #### CBC #### [facility] [address] [place] [address] Dr. Luis Daniel SinPLT364 103/pcSyoaqh593-837Ntz Peoples HospitalComment on above: Performed By: #### CBC #### [facility] [address] [place] [address] Dr. Luis Daniel SinRBC4.72 106/ulNormal4.20-5.40The [facility]stownment on above:Performed By: #### CBC #### [facility] [address] [place] [address] Dr. Luis Daniel SinWBC8.3 103/ulNormal4.0-11.0The [facility]stownment on above: Performed By: #### CBC #### [facility] [address] [place] [address] Dr. Luis Daniel SinCT CHEST WO CONon [id number] CHEST WO CONEXAMINATION: CT CHEST WO CON HISTORY: Lung field [...] Electronically authenticated by: TODD JACOBS Date: 2022-02-25 18:07Prov[facility] HospitalPROF 14(COMP METB)on 29-15-1943Lvgdvnq [Mass/Vol]3.6 g/dLNormal 3.4-5.0The Kourtney HospitalComment on above:Performed By: #### CMP #### [facility] [address] [address] [address] Luis Daniel SinAlbumin/Globulin [Mass ratio]0.9 {ratio}NormalThe Peoples HospitalComment on above:Performed By: #### CMP #### [facility] [address] [address] [address] Luis Daniel CraigP [Catalytic activity/Vol]113 U/WTudxyl38-044Sed Peoples HospitalComment on above:Performed By: #### CMP #### [facility] [address] [address] [address] Luis Daniel CraigT [Catalytic activity/Vol]17 U/SXkevas06-54Gtq Peoples HospitalComment on above:Performed By: #### CMP #### [facility] [address] [place] [address] Dr. Luis Daniel SinAnion gap [Moles/Vol]9.7 mmol/LNormalThe Peoples HospitalComment on above:Performed By: #### CMP #### [facility] [address] [place] [address] Dr. Luis Daniel SinAST [Catalytic activity/Vol]11 U/LCritically mrm63-17Wxx [facility]stownment on above:Performed By: #### CMP #### [facility] [address] [place] [address] Dr. Luis Daniel SinBilirubin [Mass/Vol]0.3 mg/dLNormal0.2-1.0The [facility] Comment on above:Performed By: #### CMP #### [facility] [address] [place] [address] Dr. Luis Daniel SinCalcium [Mass/Vol]8.9 mg/dLNormal8.5-10.1[facility] Comment on above:Performed By: #### CMP #### [facility] [address] [place] [address] Dr. Luis Daniel SinChloride [Moles/Vol]104 mmol/YSjfnmc23-336Mxi [facility] Comment on above:Performed By: #### CMP #### [facility] [address] [address] [address] Luis Daniel SinCO2 [Moles/Vol]26.9 mmol/OCdegwu53.0-32.0[facility] Comment on above:Performed By: #### CMP #### [facility] [address] [address] [address] Luis Daniel SinCreatinine [Mass/Vol]0.96 mg/dLNormal0.55-1.02The Peoples HospitalComment on above:Performed By: #### CMP #### [facility] [address] [address] [address] Cary ChangEGFR-AF CANADIAN>60Normal>=60The Peoples HospitalComment on above:Performed By: #### CMP #### [facility] [address] [place] [address] Dr. Luis Daniel BianchiGFR-NON AF CANADIAN>60Normal>=60The Peoples HospitalComment on above:Performed By: #### CMP #### [facility] [address] [place] [address] Dr. Luis Daniel SinGlobulin (S) [Mass/Vol]4.0 g/dLNormalThe Peoples HospitalComment on above:Performed By: #### CMP #### [facility] [address] [place] [address] Dr. Luis Daniel SinGlucose [Mass/Vol]99 mg/fMSddpyi05-253Ubq [facility] Comment on above:Performed By: #### CMP #### [facility] [address] [address] [address] Luis Daniel SinPotassium [Moles/Vol]3.6 mmol/LNormal3.5-5.1The [facility] Comment on above:Performed By: #### CMP #### [facility] [address] [place] [address] Dr. Lui sDaniel SinProtein [Mass/Vol]7.6 g/dLNormal6.4-8.2The [facility] Comment on above:Performed By: #### CMP #### [facility] [address] [place] [address] Dr. Luis Daniel Martinum [Moles/Vol]137 mmol/CVxsbhr086-616YepMount St. [facility] Comment on above:Performed By: #### CMP #### [facility] [address] [place] [address] Dr. Luis Daniel Beard nitrogen [Mass/Vol]12.0 mg/dLNormal7.0-18.0[facility]. Mary HospitalComment on above:Performed By: #### CMP #### [facility] [address] [place] [address] Dr. Luis Daniel Beard nitrogen/Creatinine [Mass ratio]12.5 mg/mgNoAvita Health System Ontario HospitalComment on above:Performed By: #### CMP #### [facility] [address] [place] [address] Dr. Luis Daniel Gonzalez RATE WESTERGRENon 86-07-8213OBA RATE46 mm/hrCritically high <=20The Peoples HospitalComment on above:Performed By: #### AST, ALT, LIPID #### [facility] [address] [place] [address] Dr. Luis Daniel MorrisID PROFILEon 24-65-8568IEXF-HDL RATIO NORMSEE [facility] Cleveland WestComment on above:Result Comment: 3.3 - 4.4 LOW RISK 4.4 - 7.1 AVERAGE RISK 7.1 - 11.0 MODERATE RISK >11.0 HIGH RISKPerformed By: #### AST, ALT, LIPID #### [facility] [address] [place] [address] Dr. Luis Daniel SinCholesterol [Mass/Vol]250 mg/dLCritically high<=200[facility] St. Mary HospitalComment on above:Performed By: #### AST, ALT, LIPID #### [facility] [address] [place] [address] Dr. Luis Daniel SinCholesterol in HDL [Mass/Vol]44 mg/aPNwrqen59-11FurMount St. Mary HospitalComment on above:Performed By: #### AST, ALT, LIPID #### [facility] [address] [place] [address] Dr. Luis Daniel Perezesterol in LDL [Mass/Vol]162.0 mg/dLProvidence HospitalComcorewell health pennock hospital on above:Performed By: #### AST, ALT, LIPID #### [facility] [address] [address] [address] Luis Daniel Nickerson.total/Cholesterol in HDL [Mass ratio]5.7 {ratio} NormalMercy Health Urbana Hospital on above:Performed By: #### AST, ALT, LIPID #### [facility] [address] [address] [address] Luis Daniel Godoy NORMAL> or = 60 mg/dl - LOW CARDIOVASCULAR RISK <40 mg/dl - HIGH CARDIOVASCULAR RISKProvidence HospitalComcorewell health pennock hospital on above:Performed By: #### AST, ALT, LIPID #### [facility] [address] [place] [address] Dr. Luis Daniel Johnson CALC NORMALSEE BELOWProvidence HospitalComcorewell health pennock hospital on above:Result Comment: <100 mg/dl OPTIMAL 100 - 129 mg/dl NEAR OR ABOVE OPTIMAL 130 - 159 mg/dl BORDERLINE HIGH 160 - 189 mg/dl HIGH >190 mg/dl VERY HIGH Performed By: #### AST, ALT, LIPID #### [facility] [address] [place] [address] Dr. Luis Daniel SinTriglyceride [Mass/Vol]220 mg/dLCritically high<=150[facility] on above:Performed By: #### AST, ALT, LIPID #### [facility] [address] [place] [address] Dr. Luis Daniel Hodges CALC44.0 mg/dLBlanchard Valley Health System [facility] on above: Performed By: #### AST, ALT, LIPID #### [facility] [address] [address] [address] Luis Daniel Colbert [id number] [Catalytic activity/Vol]17 U/XQbwxyg60-94Vyv [facility] on above:Performed By: #### AST, ALT, LIPID #### [facility] [address] [place] [address] Dr. Luis Daniel Plascencia [id number] [Catalytic activity/Vol]21 U/LAfsort18-21FfwMount St. Mary HospitalComment on above:Performed By: #### AST, ALT, LIPID #### [facility] [address] [address] [address] Luis Daniel SinPatient Correspondenceon 74-92-9674Kxahbsk Correspondence [id number]#[id number]:127Aultman HospitalProvider Letteron 26-87-7786Wnuntkxd Letter December 31, 2021 CATHIE ORTEGA [address] [place] [address] CATHIE ORTEGA 1970 Dear Cathie , This letter is to inform you the providers of [facility], [facility] will no longer be responsible for your routine medical care due to non compliance. Emergency care only will be provided for the thirty (30) days following this letter. During this time period we suggest that you find another physician for your medical needs. A listing of area physicians can be found on [facility]'s website at [email or web address] or you may contact your health plan. We will be glad to forward your records to your new physician as long as we receive a signed release of records form. Sincerely, Dr. Vickie Montiel MD [facility] [address], [place] [address] FbetozWupgurAultman HospitalLIPID PROFILEon 12-13-2021 CHOL-HDL RATIO NORMSEE [facility] WestComment on above:Result Comment: 3.3 - 4.4 LOW RISK 4.4 - 7.1 AVERAGE RISK 7.1 - 11.0 MODERATE RISK >11.0 HIGH RISKPerformed By: #### AST, ALT, LIPID #### [facility] [address] [place], [place] [address] Dr. Luis Daniel SinCholesterol [Mass/Vol]233 mg/dLCritically high<=200Mount St. Mary HospitalComment on above:Performed By: #### AST, ALT, LIPID #### [facility] [address] [address] [address] Luis Daniel SinCholesterol in HDL [Mass/Vol]52 mg/xVHndpzm17-66TuuMercy Health Urbana Hospital on above:Performed By: #### AST, ALT, LIPID #### [facility] [address] [address] [address] Luis Daniel SinCholesterol in LDL [Mass/Vol]142.6 mg/dLNoAvita Health System Ontario HospitalComcorewell health pennock hospital on above:Performed By: #### AST, ALT, LIPID #### [facility] [address] [address] [address] Luis Daniel Perezesterjose.total/Cholesterol in HDL [Mass ratio]4.5 {ratio} NormalThe [facility] on above:Performed By: #### AST, ALT, LIPID #### [facility] [address] [address] [address] Luis Daniel Godoy NORMAL> or = 60 mg/dl - LOW CARDIOVASCULAR RISK <40 mg/dl - HIGH CARDIOVASCULAR RISKBlanchard Valley Health System [facility] on above:Performed By: #### AST, ALT, LIPID #### [facility] [address] [address] [address] Luis Daniel Johnson CALC NORMALSEE BELOWProvidence HospitalComcorewell health pennock hospital on above:Result Comment: <100 mg/dl OPTIMAL 100 - 129 mg/dl NEAR OR ABOVE OPTIMAL 130 - 159 mg/dl BORDERLINE HIGH 160 - 189 mg/dl HIGH >190 mg/dl VERY HIGH Performed By: #### AST, ALT, LIPID #### [facility] [address] [address] [address] Luis Daniel SinTriglyceride [Mass/Vol]192 mg/dLCritically high<=150The [facility] on above:Performed By: #### AST, ALT, LIPID #### [facility] [address] [address] [address] Luis Daniel SinVLDL CALC38.4 mg/dLNoAvita Health System Ontario HospitalComment on above: Performed By: #### AST, ALT, LIPID #### [facility] [address] [address] [address] Luis Daniel Colbert [phone] [Catalytic activity/Vol]12 U/LCritically low 15-37The Peoples HospitalComment on above:Performed By: #### AST, ALT, LIPID #### [facility] [address] [address] [address] Luis Daniel Plascencia [phone] [Catalytic activity/Vol]23 U/VUbjwfx79-90Szp [facility] HospitalComment on above:Performed By: #### AST, ALT, LIPID #### [facility] [address] [address] [address] Luis Daniel SinPatient Correspondenceon 38-41-9454Ekwaliu Correspondence [id number]:127NoHarrison Community HospitalPatient Letter FTMCon 90-84-9895Ibctrly Letter [facility] November 10, 2021 CATHIE ORTEGA [address] [place] [address] CATHIE ORTEGA 1970 Dear Cathie, I am corresponding with you by certified [...] Sincerely, Dr. Vickie Montiel MD [facility] [address] [place] [address] KbbudpWmkhovAultman HospitalProvider Letteron 10-19-2021 Provider Letter October 19, 2021 CATHIE ORTEGA [address] [place] [address] CATHIE ORTEGA 1970 Dear Jodi , During review of your medical record we noticed you missed your 09/27/21 Cystoscopy appointment. We have attempted to reach you on 09/28/21, 10/05/21, and 10/19/21 to reschedule your procedure with no success. Please call our office today to reschedule this appointment. Sincerely, Dr. Vickie Montiel MD [facility] [address] [place] [address] VqmznqWnrhhdAultman HospitalRAD - CT Reporton 09-21-[address] - [address] [id number]#[id number]:127NoHarrison Community HospitalReminderson 50-62-2346Lwhmqfsml From: Suzan Collins MA To: - Prior Authorization; Sent: 09/15/2021 12:38:12 EDT Show up: 09/16/2021 07:00:00 EDT Subject: sending urine for UA Due Date/Time: 09/16/2021 12:00:00 EDT Reminder/Recall Urine sent to [facility] for UA Per last encounter: Patient denies visible blood, UA today shows large. UA done on 07/01/21 showed 2-5 RBC. -UA today will be sent for micro UA. High risk per AUA guidelines given > 30 pack years history. Will proceed with full workup. -Will schedule cystoscopy with urine FISH/cytology, pelvic exam. CT Urogram From: Suzan Collins MA ( - Prior Authorization) To: EU - Clinical; Cc: Suzan Collins MA; Sent: 09/21/2021 13:41:01 EDT Show up: 09/21/2021 13:40:00 EDT Subject: RE: sending urine for UA UA is done Cysto is scheduled for 09/27/2021 From: Suzan Collins MA (EU - Clinical) To: EU - Clinical; Sent: 09/21/2021 15:43:23 EDT Show up: 09/21/2021 15:43:00 EDT Subject: RE: sending urine for UA [facility]. I don't see the results in the pt's chart. But when they do get in chart, GURU needs to review them. Scratch that. They were sent to [facility]. Will forward to GURU.Aultman HospitalCoding Summary.on 72-10-5662Ivhhyn Summary. CD:[id number]+[id number] DC2AJrlC3EhkrKl [file] bGxh (more content not included)...[facility]man HospitalPhysician Referralon 30-01-0857Iiyinhfep Referral [id number]#[id number]:127Aultman HospitalPre-Certification Formon 27-12-3477Uqs-Certification Form [id number]:127[facility]man HospitalPatient Educationon 81-10-3033Tvkekht EducationUrology Hematuria, Adult Hematuria is blood in the urine. Blood may be visible in the urine, or it may be identified with a test. This condition can be caused by infections of the bladder, urethra, kidney, or prostate. Otherpossible causes include: ? Kidney stones. ? Cancer [...] blood in your urine, even if it ispainless or the blood stops without treatment. Blood in the urine, when it happens and then stops and then happens again, can be a symptom of a very serious condition, including cancer. There is no pain in the initial stages of many urinary cancers. Follow these instructions at home: Medicines ? Take dqei-rbb-pxhppwz and prescription medicines only as told by [...] the blood stops without treatment. ? Take ryiz-hlu-eiucxdm and prescription medicines only as told by your health care provider. ? Drink enough fluid to keep your urine clear or pale yellow. This information is not intended to replace advice given to you by your health care provider. Make sure you discuss any questions you have with your health care provider. Document Released: 06/05/2006 Document Revised: 10/30/2019 Document Reviewed: 07/08/2017 [employer] Patient Education ? 2019 [employer].[facility] RAD - CT Reporton [id number] - CT Report [id number]#[id number]:127NoHarrison Community HospitalURINALYSISOrdered By: Shahla Sebastian on 51-55-1496Opzwbmwfa Ql (U)2+ *ABN* (09/15/21 12:36 PM)Invalid Interpretation CodeNegativeHARMON [facility]ORIAL [facility] UA Auto SSCalcium oxalate crystals LM Ql (Urine sed)Present (09/15/21 12:36 PM)NormalHARMON MEMORIAL HOSPITAL [facility] UA Auto SSClarity (U)Clear (09/15/21 12:36 PM)NormalClearFMCBRIDE ORTHOP[facility] UA Auto SSColor (U)Yellow (09/15/21 12:36 PM)NormalYellowHARMON MEMORIAL HOSPITAL [facility] UA Auto SSEpithelial cells.squamous LM.HPF (Urine sed) [#/Area]0-2 /HPFNormal0-2/HPFHARMON MEMORIAL HOSPITAL [facility] UA Auto SSGlucose Test strip (U) [Mass/Vol]Negative (09/15/21 12:36 PM)NormalNegativeHARMON MEMORIAL HOSPITAL [facility] UA Auto SSHemoglobin Ql (U)3+ *ABN* (09/15/21 12:36 PM)Invalid Interpretation CodeNegativeHARMON [facility]ORIAL [facility]OS[facility] UA Auto SSKetones (U) [Mass/Vol]Negative (09/15/21 12:36 PM)NormalNegativeHARMON MEMORIAL HOSPITAL [facility] UA Auto SSLithium.plasma/[place].RBC (Bld) [Mass ratio]0-3 /HPFNormal0-3/HPFHARMON MEMORIAL HOSPITAL [facility] UA Auto SSMucus Ql (Urine sed)Trace (09/15/21 12:36 PM)NormalHARMON MEMORIAL HOSPITAL [facility] UA Auto SSNitrite Ql (U)Negative (09/15/21 12:36 PM)NormalNegativeHARMON MEMORIAL [facility]OSPITAL [facility] UA Auto SSpH (U)5.5 *NA* (09/15/21 12:36 PM)Invalid Interpretation Code5.0 - 9.0[facility] UA Auto SSProtein (U) [Mass/Vol]Negative (09/15/21 12:36 PM)NormalNegativeHARMON MEMORIAL HOSPITAL [facility] UA Auto SSSpecific gravity (U) [Rel density]1.025 *NA* (09/15/21 12:36 PM)Invalid Interpretation Code1.005 - 1.030[facility] UA Auto SSUA Spec DescClean Catch (09/15/21 12:36 PM)NormalHARMON MEMORIAL HOSPITAL [facility] UA Auto SSUrobilinogen Qn (U)0.3214105 {Edelmira'U}/dLNormal0.0 - 1.0 EU/dLHARMON MEMORIAL HOSPITAL [facility] UA Auto SSWBC Auto Ql (U)Negative (09/15/21 12:36 PM)NormalNegativeHARMON MEMORIAL [facility]OSPITAL [facility] UA Auto SSWBC LM.HPF (Urine sed) [#/Area]0- 5 /HPFNormal0-5/HPFHARMON MEMORIAL HOSPITAL – [facility] UA Auto SSUrinalysison 25-73-4761Wzruqvttp Ql (U)2+ AbnormalNegativeOhiohealth Grady Memorial HospitalComment on above:Performed By: #### [id number] #### [facility] [address], [place] [address]Zzaeauj oxalate crystals LM Ql (Urine sed)PresentNoHarrison Community HospitalComment on above:Performed By: #### [id number] #### [facility] [address], [place] [address]Qemzvuu (U)CLEARNormalClearOhiohealth Grady Memorial HospitalComment on above:Performed By: #### [id number] #### [facility] [address], [place] [address]Ksvko (U)YELLOWNormalYAultman Orrville HospitalComment on above:Performed By: #### [id number] #### [facility] [address], [place] [address]Hmtmnjeisf cells.squamous LM.HPF (Urine sed) [#/Area]0-2Normal 0-2Fisher [facility] Medical CenterComment on above:Performed By: #### [id number] #### [facility] [address], [place] [address]Ocfyzwn Test strip (U) [Mass/Vol]NegativeNormalNegativeOhiohealth Grady Memorial HospitalComment on above:Performed By: #### [id number] #### [facility] [address], [place] [address]Avipovocbf Ql (U)3+AbnormalNegativeOhiohealth Grady Memorial Hospital Comment on above:Performed By: #### [id number] #### [facility] [address], [place] [address]Zufcwyx (U) [Mass/Vol]NegativeNormalNegativeOhiohealth Grady Memorial HospitalComment on above:Performed By: #### [id number] #### [facility] [address], [place] [address]Sfxvicy.plasma/[place].RBC (Bld) [Mass ratio]2-7Mfwpke4-6Zlmirg [facility] Medical CenterComment on above:Performed By: #### [id number] #### [facility] [address], [place] [address]Vlmzh Ql (Urine sed)TRACENormMartin Memorial Hospital Comment on above:Performed By: #### [id number] #### [facility] [address], [place] [address]Sfvjafq Ql (U)NegativeNormalNegNorwalk Memorial Hospital Comment on above:Performed By: #### [id number] #### [facility] [address], [place] [address]sU (U)5.5 [pH]Invalid Interpretation Code5.0-9.0[facility] HospitalComment on above:Performed By: #### [id number] #### [facility] [address], [place] [address]Jceslqo (U) [Mass/Vol]NegativeNormalNegativeOhiohealth Grady Memorial HospitalComment on above:Performed By: #### [id number] #### [facility] Laboratory [address] [place] [address] 83050Zlecglhk gravity (U) [Rel density]1.025Invalid Interpretation Code1.005-1.030Ohiohealth Grady Memorial HospitalComment on above:Performed By: #### [id number] #### [facility] Laboratory [address] [place] [address] 11659Rvjd of Urine collection methodClean CatchNormalOhiohealth Grady Memorial HospitalComment on above:Performed By: #### [id number] #### [facility] Laboratory [address] [place] [address] 59969Fsrtylnawftc Qn (U)0.2 {Edelmira'U}/dLNormal0.0-1.0Ohio[facility] Grady Memorial HospitalComment on above:Performed By: #### [id number] #### [facility] Laboratory [address] [place] [address] 15799IAA Auto Ql (U)NegativeNormalNegativeOhiohealth Grady Memorial HospitalComment on above:Performed By: #### [id number] #### [facility] Laboratory [address] [place] [address] 43518JKH LM.HPF (Urine sed) [#/Area]6-0Vpdlnh5-2Ckssqn [facility] Medical CenterComment on above:Performed By: #### [id number] #### [facility] Laboratory [address] [place] [address] 16232IX CHEST W CONon 13-94-9134AI CHEST W CON Begin Addendum #1 CORRECTION: [...] solid pulmonary nodules, nonspecific, of doubtful clinical significanceProvidence HospitalCOVI Quick Testingon 22-52-4885FtxoxsMlwttchzAcbdr [place] [employer] Other Vital Signs Date TimeVital SignValuePerforming RnhqfpjfwYrspcjzk97-98-6684 18:06-0400Body xwtamr254.18 Carey Becerrilholz MOBILE SECURITY ARCHITECT-C Work Phone: [facility]10-20-2025 18:06-0400 Body mass index (BMI) [Ratio]30.2 kg/m2Shandra Becerrilholz MOBILE SECURITY ARCHITECT-C Work Phone: [facility]10-20-2025 18:06-0400 Body mtpifmottjb12.5 [degF]Shandra Kooz MOBILE SECURITY ARCHITECT-C Work Phone: [facility]10-20-2025 18:06-0400 Body gxvkxo06.54 kgFide Bartolohholz MOBILE SECURITY ARCHITECT-C Work Phone: [facility]10-20-2025 18:06-0400 Diastolic blood lpuowcok79 mm[Hg]Shandra Kooz MOBILE SECURITY ARCHITECT-C Work Phone: [facility]10-20-2025 18:06-0400 Heart mqnj540 /minFidesa Joneholz MOBILE SECURITY ARCHITECT-C Work Phone: [facility]10-20-2025 18:06-0400 Respiratory rate18 /minLisa Joneholz MOBILE SECURITY ARCHITECT-C Work Phone: [facility]10-20-2025 18:06-0400 SaO2% (BldA) [Mass fraction]98 %Shandra Kooz MOBILE SECURITY ARCHITECT-C Work Phone: [phone] [place], [place] [address]5710-20-2025 18:06-0400 Systolic blood rmhiqeno531 mm[Hg]Shandra Becrerilholz MOBILE SECURITY ARCHITECT-C Work Phone: [phone] [place], [place] 8704808-04-2025 16:06-0400 Body mass index (BMI) [Ratio]30.04 kg/m2Shandra Becerrilholz MOBILE SECURITY ARCHITECT Work Phone: [facility] CenterCnzmpxyskw34-60-8022 16:06-0400Body temperature 97.81 [degF]Shandra Kooz MOBILE SECURITY ARCHITECT Work Phone: [facility] CenterBghwlaiwqu43-34-6825 16:06-0400Body ifxfed38 kg Shandrakathya Becerrilholz MOBILE SECURITY ARCHITECT Work Phone: [facility] CenterXqksmrqhus62-69-4806 16:06-0400Diastolic blood odyigvpb19 mm[Hg]Shandra Joneholz MOBILE SECURITY ARCHITECT Work Phone: [facility] CenterBqcigdgkxk12-95-6811 16:06-0400Heart rate79 /min Shandra Joneholz MOBILE SECURITY ARCHITECT Work Phone: [facility] CenterJhdkvmoubz07-75-8419 16:06-0400Respiratory rate18 /minLisa Bartolohholz MOBILE SECURITY ARCHITECT Work Phone: [facility] CenterRrhkpbfizr88-25-5357 16:06-2545YxP2% (BldA) [Mass fraction]98 %Shandra Joneholz MOBILE SECURITY ARCHITECT Work Phone: [facility] CenterOqhjjqephx61-66-9155 16:06-0400Systolic blood binuuqro992 mm[Hg]Shandra Hayesz MOBILE SECURITY ARCHITECT Work Phone: [facility] CenterKvhurpojdh62-20-5396 14:39-0400Body cacoit372.2 Amairaniisa Joneholz MOBILE SECURITY ARCHITECT Work Phone: [facility] CenterJladmacobg97-86-0271 14:39-0400Body mass index (BMI) [Ratio]31.48 kg/m2Lisa Joneholz MOBILE SECURITY ARCHITECT Work Phone: [facility] CenterPsvsoqeuij74-57-5637 14:39-0400Body temperature 98.49 [degF]Shandra Joneholz MOBILE SECURITY ARCHITECT Work Phone: [facility] CenterOluujssypw14-49-4385 14:39-0400Body vigxcj67.17 kgLisa Joneholz MOBILE SECURITY ARCHITECT Work Phone: [facility] CenterUttvtkmryl57-29-9882 14:39-0400Diastolic blood bwzylakj37 mm[Hg]Shandra Joneholz MOBILE SECURITY ARCHITECT Work Phone: [facility] CenterDqsdklclhm63-10-9421 14:39-0400Heart rate84 /min Shandra Joneholz MOBILE SECURITY ARCHITECT Work Phone: [facility] CenterNiiwubftdd43-43-1947 14:39-0400Respiratory rate19 /minLisa Joneholz MOBILE SECURITY ARCHITECT Work Phone: [facility] CenterPvvluoriuh50-70-0278 14:39-6441QjF3% (BldA) [Mass fraction]98 %Shandra Joneholz MOBILE SECURITY ARCHITECT Work Phone: [facility] CenterBixjsusduw04-81-9093 14:39-0400Systolic blood tmzjoqpp452 mm[Hg]Shandra Joneholz MOBILE SECURITY ARCHITECT Work Phone: [facility] CenterWlqtlnaipr86-64-0487 10:45-0400Body ewsvao928.2 Amairaniisa Joneholz MOBILE SECURITY ARCHITECT Work Phone: [facility] CenterMrusdlilej23-41-5477 10:45-0400Body mass index (BMI) [Ratio]31.83 kg/m2Lisa Joneholz MOBILE SECURITY ARCHITECT Work Phone: [facility] CenterDkbkbbohrr30-70-6352 10:45-0400Body temperature 98.49 [degF]Shandra Romero MOBILE SECURITY ARCHITECT Work Phone: [facility] CenterGnxdqcxvkf64-09-9406 10:45-0400Body eunert82.17 kgShandra Romero MOBILE SECURITY ARCHITECT Work Phone: [facility] CenterOpakxwyfxd09-49-7913 10:45-0400Diastolic blood tisrrkfd58 mm[Hg]Shandra Kooz MOBILE SECURITY ARCHITECT Work Phone: [facility] CenterCsgyhywmsc58-18-2062 10:45-0400Heart rate73 /min Shandra Hayesz MOBILE SECURITY ARCHITECT Work Phone: [place] [address]Bqkhjazbiq92-72-6555 10:45-0400Respiratory rate19 /minShandra Romero MOBILE SECURITY ARCHITECT Work Phone: [facility] CenterLlihghbfpc91-22-6935 10:45-5618OeP0% (BldA) [Mass fraction]93 %Shandra Romero MOBILE SECURITY ARCHITECT Work Phone: [facility] CenterBtzzoibnad88-80-3760 10:45-0400Systolic blood pwrfksto659 mm[Hg]Shandra Romero MOBILE SECURITY ARCHITECT Work Phone: [facility] CenterPklwvohsxy31-74-4901 08:30-0400Blood Pressure LocationKathy Lue [facility] 03-30-2022 08:30-0400Diastolic blood xvmyaoyc71 mm[Hg] Vickie Lue [facility] 03-30-2022 08:30-0400Systolic blood tterxbjs479 mm[Hg] Vickie Lue [facility] 10-27-2021 20:30-0400Body zikpqe860.18 Linda Chiang Other [employer] Other 10-27-2021 20:30-0400Body mass index (BMI) [Ratio]32.1 kg/v3IjexhiCecy Chiang Other [employer] Other 10-27-2021 20:30-0400Body dtjndyusfum45.5 [degF]Cecy Chiang Other [employer] Other 10-27-2021 20:30-0400Body cyhkwv31.99 kgCecy Chiang Other [employer] Other 10-27-2021 20:30-0400Respiratory rate18 /minCecy Chiang Other [employer] Other 10-27-2021 20:30-1862XuX5% (BldA) [Mass fraction]96 % Cecy Chiang Other [employer] Other Encounters Encounter DateEncounter TypeCare ProviderFacilityStart: 04-07-2025 End: 88-74-7584gwjjbhmeqbOlia J Aichholz MOBILE SECURITY ARCHITECT-C Work Phone: [facility] ClydeStart: 04-07-2025 End: 15-80-7689Jniyyjq encounter procedureLisa Delia Romero MOBILE SECURITY ARCHITECT-C-[facility] Work Phone: Start: 09-51-6580Ptjtehu encounter statusLisa Romero MOBILE SECURITY ARCHITECT-C Work Phone: [facility]: 01-20-2025 End: 73-67-2982Eywpzt outpatient visit 25 minutesLisa Romero MOBILE SECURITY ARCHITECT Work Phone: [facility] FMComment on above:Rheumatoid arthritis with rheumatoid factor of multiple 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 (HCC) (Primary Dx); Class 1 obesity due to excess calories without serious comorbidity with body mass index (BMI) of 31.0 to 31.9 in adult; Cigarette nicotine dependence without complication; Colon cancer screening; Rheumatoid arthritis, unspecified (HCC); Chronic nonintractable headache, unspecified headache type; Depression, unspecified ; Current mild episode of major depressive disorder without prior episode ; Mixed hyperlipidemia ; Centrilobular emphysema (HCC)Start: 01-20-2025 End: 48-24-9583rhlcauwhfgBFVF AICHHOLZNot AvailableStart: 01-20-2025 End: 15-92-9381Jcurgr flowsheetShandra Mcfarlandtylerholcathi MOBILE SECURITY ARCHITECT Work Phone: [facility] FMStart: 01-20-2025 End: 87-03-3191Fssigv flowsheetShandra Mcfarlandtylerholz MOBILE SECURITY ARCHITECT Work Phone: [facility] FMStart: 73-22-4861Jwzmkkg encounter status Shandra Heather MOBILE SECURITY ARCHITECT Work Phone: noms HealthcareStart: 03-28-2024 End: 49-08-4985Dcbheonro Result EncounterGeneric External Data ProviderNOMS External Department UnsolicitedStart: 03-28-2024 End: 96-67-0822Kgrriieqq Result EncounterGeneric External Data ProviderNOMS External Department UnsolicitedStart: 03-27-2024 End: 98-67-1548Inmynrkjd Result EncounterLisa Becerrilvance MOBILE SECURITY ARCHITECT Work Phone: n[facility] External Department UnsolicitedStart: 03-27-2024 End: 98-32-4364Maaoioqxs Result EncounterShandra Becerrilholcathi MOBILE SECURITY ARCHITECT Work Phone: [facility] External Department UnsolicitedStart: 03-25-2024 End: 12-29-7504Fkrmyq outpatient visit 15 minutesShandra Heather MOBILE SECURITY ARCHITECT Work Phone: [facility] FMComment on above:Peritonsillar abscess (Primary Dx); Obesity due to excess calories without serious comorbidity, unspecified class; Current smoker; Colon cancer screening; Rheumatoid arthritis of multiple sites with negative rheumatoid factor (CMS/HCC); Encounter for screening mammogram for malignant neoplasm of breastStart: 03-25-2024 End: 13-06-5162Ucplde flowsheetShandra Romero MOBILE SECURITY ARCHITECT Work Phone: [facility] FMStart: 03-25-2024 End: 70-90-6009Jefujn flowsheetShandra Kooz MOBILE SECURITY ARCHITECT Work Phone: [facility] FMStart: 03-25-2024 End: 32-24-8675mjdrzonibyUVOM AICHHOLZNot AvailableStart: 03-07-2024 End: 67-18-4496Vhhcmh flowsheetLisa Hayesz MOBILE SECURITY ARCHITECT Work Phone: [facility] FMStart: 03-07-2024 End: 60-13-1404Zyoldh flowsheetShandra Mcfarlandhvance MOBILE SECURITY ARCHITECT Work Phone: noms CW FMStart: 03-07-2024 End: 31-30-3101Mnfjjl outpatient visit 25 minutesLisa Romero MOBILE SECURITY ARCHITECT Work Phone: [facility] C[facility] FMComment on above:Peritonsillar abscess (Primary Dx); Encounter for screening mammogram for malignant neoplasm of breast; Immunocompromised state due to drug therapy (CMS/HCC); Rheumatoid arthritis of multiple sites with negative rheumatoid factor (CMS/HCC) Start: 03-07-2024 End: 13-49-7409xlzyrccyxzZWUT AICHHOLZNot AvailableStart: 03-02-2024 End: 73-04-8569vleeokhhhuMOGNQD L TIMKOWyandot Memorial Hospitaltart: 12-06-2022 End: 80-63-7088xyqieuvnbqMrdq L ObermeyerFacility:[facility]art: 12-06-2022 End: 91-16-9169jnwaeasfucBssl J Aichholz Work Phone: [facility] Work Phone: Start: 12-06-2022 End: 82-67-7309Tbdjaxp encounter procedureLisa Aichholz Work Phone: [facility] [address] Work Phone: Start: 10-03-2022 End: 92-99-3486ttauqiojcxKynd MorrowFacility:[facility] Start: 10-03-2022 End: 25-94-2141khfedulbnuYcev J Aichholz Work Phone: [facility] Work Phone: Start: 10-03-2022 End: 11-28-0319Thaebkh encounter procedureLisa Aichholz Work Phone: [facility] [address] Work Phone: Start: 08-18-2022 End: 11-13-8093royofaqnxzSNO SHANDRA AICHHOLZFacility:B1Arhlm: 06-07-2022 End: 57-77-3575varuklcknqBN DOCTOR MISCFacility:U0Esnhp: 02-25-2022 End: 01-80-1127yadlmxrivbLGE SHANDRA AICHHOLZFacility:V1Cpogy: 02-01-2022 End: 87-22-9844mozgufvsgjIHP SHANDRA AICHHOLZFacility:Y3Zoexc: 12-13-2021 End: 56-94-8405osujekprtnGKC SHANDRA AICHHOLZFacility:H4Yqnji: 09-15-2021 End: 76-13-7038Sfa Drop offVickie Montiel [facility] Start: 09-15-2021 End: 57-17-7845Zywbmyn encounter Danielle Montiel [facility] Kourtney start: 09-06-2021 End: 07-56-1119alvnocmvmdXAS SHANDRA AICHHOLZFacility:Z8Tiula: 04-14-2021 End: 71-50-5951gqgcczdhewBkiahs Dymond Other [facility] [employer] Other Start: 39-08-9253Ozcdch outpatient visit 15 minutes Cecy ChiangHUBERT Urgent Care Kel Procedures DateProcedureProcedure DetailPerforming ClinicianStart: 53-64-1113GP LUNG SCREENING LOW DOSEGeneric External Data ProviderStart: 85-50-9253DG TOMOSYNTHESIS SCREENING Xuan Romero MOBILE SECURITY ARCHITECT Work Phone: Start: 00-24-1528BlqpkyfkyceGsrw Heather MOBILE SECURITY ARCHITECT Work Phone: Start: 72-39-1114SuzvkmtodttPuyx Aichholz MOBILE SECURITY ARCHITECT Work Phone: Start: 30-83-8809CpzeryvwnvrmCxuni Lue Start: 06-84-1182Pwebncocvae observation [Identifier] in Cervix by Cyto stainShandra Romero MOBILE SECURITY ARCHITECT Work Phone: Plan of Treatment DateCare ActivityDetailAuthorStart: 67-46-3866Wijuqijkp for malignant neoplasm of colonColorectal Cancer ScreeningNOMS HealthcareComment on above:Postponed from 1972 (Patient Refused)Start: 53-14-3532Xphkkdmel for malignant neoplasm of breastMammogramNOMS HealthcareStart: 03-24-2025 End: 95-42-6076Mhkhogk encounter iauddgjvu37/06/2025 4:30 PM EDT Office Visit [facility] [address] [place] [address] Shandra Romero MOBILE SECURITY ARCHITECT [address] [place] [address] NOMMaria T ALCOCER FMStart: 01-20-2025 End: 98-55-6519Wdmxblm encounter vuciljeoq03/04/2025 4:00 PM EDT Office Visit [facility] [address] [place] [address] Shandra Romero, DEENA [address] [place] [address] Class 1 obesity due to excess calories without serious comorbidity with body mass index (BMI) of 31.0 to 31.9 in adult (Primary Dx); Rheumatoid arthritis with rheumatoid factor of multiple 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 (HCC); Cigarette nicotine dependence without complication; Colon cancer screening; Screening for lung cancerNOMS CW FMComment on above: Class 1 obesity due to excess calories without serious comorbidity with body mass index (BMI) of 31.0 to 31.9 in adult (Primary Dx); Rheumatoid arthritis with rheumatoid factor of multiple 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 (HCC); Cigarette nicotine dependence without complication; Colon cancer screening; Screening for lung cancerStart: 06-26-2024 End: 02-06-2839Oqylbfz encounter /08/2025 6:00 PM EST Office Visit [facility] [address] [place] [address] Shandra Romero, DEENA [address] [place] [address] [facility] CW FMStart: 04-06-2024 End: 05-00-6584PB Breast - bilateral ScreeningBilateral screening mammogram Imaging Routine Encounter for screening mammogram for malignant neoplasm of breast Expected: 04/06/2024 (Approximate), Expires: 05/07/2025[facility] Work Phone: Comment on above:Expected: 04/06/2024 (Approximate), Expires: 05/07/2025Start: 03-25-2024 End: 95-94-7670Dtosqub encounter procedureNOMS [facility] FMComment on above:Arrived Start: 96-38-7995Nombjgmjy for malignant neoplasm of breastMammogramNOND HealthcareStart: 03-12-2024 End: 92-60-0541Hzuvqrz encounter psmyqobka25/ 3:40 PM EDT Office Visit [facility] [address] [place] [address] Shandra Romero NP [address] [place] [address] [facility] FMStart: 03-07-2024 End: 80-97-8825Szccrxp encounter noupjugav72/19/2024 11:00 AM EDT Office Visit [facility] [address] [place] [address] Shandra Romero, DEENA [address] [place] [phone] Encounter for screening mammogram for malignant neoplasm of breast (Primary Dx)[facility] FMComment on above:Encounter for screening mammogram for malignant neoplasm of breast (Primary Dx)Start: 86-33-5435Cmdifbidl for malignant neoplasm of cervixPap SmearNOND HealthcareStart: 77-17-5038Giojxjtgr for malignant neoplasm of cervixHPV/CotestST. [facility] HealthcareStart: 1972 Screening for malignant neoplasm of colonNOND HealthcareStart: 1972 Screening for malignant neoplasm of lungLung Cancer Screening Shared Decision MakingOzarks [facility] Center [facility] Immunizations Immunization DateImmunizationNotesCare VxmuhqfrLhpqjqio77-76-8959adhusmgay B vaccine, adult dosageLisa Aichholz MOBILE SECURITY ARCHITECT Work Phone: [facility] Trbhyyxyvg78-71-7702eydhtnc toxoid, reduced diphtheria toxoid, and acellular pertussis vaccine, adsorbedLisa Aichholz MOBILE SECURITY ARCHITECT Work Phone: [facility] CenterNEGATED: Highlighted row has not occurred!60-52-5063CRJO-CoV-2 (COVID-19) Ad26 vaccine, recombinantKathy Lue [facility] Payers DatePayer CategoryPayerPolicy [id number]-byg [id number] Cross Blue ShieldBCBS [id number] BCBS [id number] 2019-Present [phone] [address] [place] [id number] 2.0.1.549196.3.57[id number] 2..1.481049.3.579.[id number] 2.0.1.682554.3.579.[id number] 2.0.1.971067.3.579.[id number] 2..1.506973.3.579.[id number] 2.0.1.005840.3.579.2.47601-82-0763Btqspyc4917571 2.0.1.651798.3.579.2.70170-05-4039Kxxvopg9927553 2.840.1.736546.3.57[id number] 2.16.840.1.292315.3.579.[id number] 2.16.840.1.814333.3.579.[id number] 2.16840.1.827188.3.579.2.616452-77-1695LthiMesilla Valley [id number] 2.16.8[id number] 2.16.840.1.596760.3.579.2.078Zxordkc13689159 2.16840.1.226825.3.579.2.531 Social History DateTypeDetailFacilityStart: 15-49-6755Hojcguy smoking statusHeavy tobacco smoker (finding)[facility] [employer] Other Start: 09-07-2023 End: 01-74-5104Hvv Assigned At [facility] [employer] Other Start: 47-96-1575Shb Assigned At [facility] Centertart: 67-31-1621Vsywdsz smoking status NHISSmokes tobacco dailyNOMS HealthcareHistory of tobacco useCigarette SmokerNOMS HealthcareStart: 09-07-2023 End: 23-52-7189Orriwzpulg smoked current (pack per day) - Sskxlofd3HGEY HealthcareStart: 72-22-3612Fnlkkch use and exposureUser of smokeless tobaccoNOMS HealthcareStart: 03-07-2024 End: 97-04-2571Nvwmwbdzh beverage intakeCurrent drinker of alcohol (finding)[facility]OM[facility] HealthcareStart: 80-27-6465Qre often do you attend oriental orthodox or alevism services?Patient declinedNOMS HealthcareDo you belong to any clubs or organizations such as oriental orthodox groups, unions, fraternal or athletic groups, or school groups?NoNOMS HealthcareAre you now , , , , never or living with a partner?DivorcedNOMS HealthcareHow many standard drinks containing alcohol do you have on a typical day?3 or 4NOMS HealthcareDo you feel stress - tense, restless, nervous, or anxious, or unable to sleep at night because yourmind is troubled all the time - these days [OSQ] Rather muchNOMS HealthcareIn the past 12 months, was there a time when you were not able to pay the mortgage or rent on time?YesNOMS HealthcareStart: 09-07-2023 Alcohol CommentCouple times a monthNOMS HealthcareStart: 16-86-0690Boi assigned at birthNot on [facility] hospitalNOMS HealthcareHow often do you need to have someone help you when you read instructions, pamphlets, or other written material from your doctor or pharmacy [SILS]SometimesNOMS HealthcareHow often to you have a drink containing alcohol?2-4 times a monthNOMS HealthcareHow often do you have 6 or more drinks on 1 occasion?NeverNOMS HealthcareHow hard is it for you to pay for the very basics like food, housing, medical care, and heatingHardNOMS Healthcare Do you feel stress - tense, restless, nervous, or anxious, or unable to sleep at night because yourmind is troubled all the time - these days [OSQ]Very muchNOMS Healthcare(I/We) worried whether (my/our) food would run out before (I/we) got money to buy more.Sometimes trueNOMS HealthcareTobacco smoking status NHIS Unknown if ever smokedOhiohealth Riverside [facility] Hospital Work Phone: SexFemale (finding)[facility] Medical Equipment Procedure CodeEquipment CodeEquipment Original TextEquipment IdentifierDatesUSE DIRECTEDStart: 04-04-2023 Functional Status UeftHchxxvalwsYbzqlkCrwfpatx06-07-3990Qvwnx score [AUDIT-C]3 01/20/2025 11:11 AM EDT Karlos JiangNOND Odeqbzhegy76-26-6021Oky often to you have a drink containing alcohol?2-4 times a month 01/20/2025 11:11 AM EDT Mychart, Generic 2- 4 times a monthSt. [facility] Medical CenterYcbdgmqyeq46-92-0188Rfu many standard drinks containing alcohol do you have on a typical day?3 or 4 01/20/2025 11:11 AM EDT Mychart, Generic 3 or 4St. [facility] Medical CenterUxriwfvgva11-86-4558Pkb often do you have 6 or more drinks on 1 occasion?Never 01/20/2025 11:11 AM EDT Mychart, Generic NeverSt. [facility] Clinical Notes 04-14-2021 to 01-20-2025 Note Date & OgnzGqnpYoeyrqup60-19-5922 History of Present illness Narrative* Shandra Romero NP - 01/20/2025 4:42 PM EDTAssociated Problem(s): Centrilobular emphysema (HCC) Inhalers: trelegy, and albuterol Recommend to quit smoking * Shandra Romero NP - 01/20/2025 4:32 PM EDTAssociated Problem(s): Current mild episode of major depressive disorder without prior episode Current med is duloxetine * REHANA WOODALL - 01/20/2025 4:00 PM EDT Right wrist- 01/06/25 no fracture, scattered mild degenerative changes Pt does wrap it during the day if it bothers her or she will wrap it during the night depending on the day Pt states when pain starts her fingers will get stuck in a bending position and pain goes up her arm and into her right elbow * Shandra Romero NP - 01/20/2025 4:00 PM EDT Images from the original note were not included. Cathie Ortega is a 54 y.o. female presents with chief complaint of Hospital Follow-up (Hand swollen/) HPI: Right wrist/hand: no injury, swelling, tightness, no erythema ER on 01/06/25 No fracture, carlos wrap and ice.: Now: stiffiness, intermittent numbness (3rd/4th fingers) does have crepitus, is not currently taking methotrexate, but is taking everything else. Pain level: 07/29 Since first of year , jessica then a month later her father SUBJECTIVE: MEDICATIONS: Current Outpatient Medications Medication Instructions acetaminophen (Tylenol 8 Hour) 650 MG ER tablet Every 8 hours albuterol HFA 90 mcg/act inhaler 2 puffs, Every 6 hours PRN amitriptyline (ELAVIL) 25 mg, Oral, Nightly atorvastatin (LIPITOR) 40 mg, Oral, Nightly, T BD Insulin Syringe U/F 31G X 11/01 1 ML misc USE DIRECTED cetirizine (ZYRTEC) 10 mg, Oral, Daily chlorzoxazone (PARAFON FORTE) 500 mg, Every 8 hours PRN DULoxetine (CYMBALTA) 60 mg, Oral, Daily etodolac (LODINE) 500 mg, Oral, 2 times daily Ehxadjihfqc-Jqqjaovgh-Ycgkkv (Trelegy Ellipta) 100-62.5-25 MCG/ACT aerosol powder 1 puff, Inhalation, Every 24 hours, Rinse mouth after use folic acid (FOLVITE) 1,000 mcg, Oral, Daily hydroxychloroquine (Plaquenil) 200 MG tablet 1 tablet, Oral, 2 times daily ibuprofen 600 MG tablet 1 tablet, Every 6 hours PRN leflunomide (Arava) 20 MG tablet 1 tablet, Oral, Daily methotrexate 50 MG/2ML injection INJECT 0.6 MILLILITERS SUBCUTANEOUSLY ONCE A WEEK methylPREDNISolone (Medrol Dospak) 4 MG tablets TAKE 6 TABLETS ON DAY 1 DIRECTED ON PACKAGE AND DECREASE BY 1 TAB EACH DAY FOR A TOTAL OF 6 DAYS omeprazole (PRILOSEC) 20 mg, Oral, Daily oxyCODONE-acetaminophen (Percocet) 5-325 MG tablet TAKE 1 TABLET BY MOUTH EVERY 6 HOURS NEEDED FOR PAIN FOR 3 DAYS ALLERGIES: No Known Allergies REVIEW OF SYMPTOMS: [...] suicidal ideas. The patient is not nervous/anxious. Depression Hematological: Does not bruise/bleed easily. Endocrine: Negative [...] father; Learning disabilities in her brother; Mental illnessin her father's sister. OBJECTIVE: Visit Vitals BP 116/78 (BP Location: Left arm, Patient Position: Sitting, BP Cuff Size: Adult long) Pulse 79 Temp 97.8 F (Temporal) Resp 18 Wt 191 lb 12.8 oz SpO2 98% BMI 30.04 kg/m Smoking Status Every Day BSA 2.03 m Physical Exam Vitals and nursing note reviewed. Constitutional: General: She is not in acute distress. Appearance: Normal appearance. HENT: Head: Normocephalic and atraumatic. Right Ear: External ear normal. Left Ear: External ear normal. Nose: Nose normal. Mouth/Throat: Mouth: Mucous membranes are moist. Eyes: Extraocular Movements: Extraocular movements intact. Conjunctiva/sclera: Conjunctivae normal. Neck: Vascular: No carotid bruit. Cardiovascular: Rate and Rhythm: Normal rate and regular rhythm. Pulses: Normal pulses. Heart sounds: Normal heart sounds. Pulmonary: Effort: Pulmonary effort is normal. Breath sounds: Normal breath sounds. No wheezing or rhonchi. Abdominal: General: Bowel sounds are normal. There is no distension. Palpations: Abdomen is soft. There is no mass. Tenderness: There is no abdominal tenderness. Musculoskeletal: Cervical back: Normal range of motion and neck supple. Right lower leg: No edema. Left lower leg: No edema. Comments: Mild swelling and tenderness to right hand/wrist No erythema noted Lymphadenopathy: Cervical: No cervical adenopathy. Skin: General: Skin is warm and dry. Capillary Refill: Capillary refill takes 2 to 3 seconds. Findings: No rash. Neurological: General: No focal deficit present. Mental Status: She is alert and oriented to person, place, and time. Psychiatric: Mood and Affect: Mood normal. Behavior: Behavior normal. Thought Content: Thought content normal. Judgment: Judgment normal. ASSESSMENT AND PLAN: Follow up in about 3 months (around 04/22/2025) for Recheck. Problem List Items Addressed This Visit Headache Relevant Medications amitriptyline (Elavil) 25 MG tablet Colon cancer screening Colon cancer screening options were discussed with patient, as well as why colon cancer screening is indicated. Options are Colonoscopy: direct visualization, every 10 years (unless indicated more frequently), risks and benefits were discussed Cologuard: every 3 years, risks and benefits were discussed , contraindications were discussed (family hx of colon cancer, colon polyps) Patient has elected to: Hyperlipidemia Relevant Medications atorvastatin (Lipitor) 40 MG tablet Rheumatoid arthritis with rheumatoid factor of multiple 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 (HCC) Is under the care of Rheumatology Is taking plaquenil, etodolac arava, currently not taking methorexate Has FMLA for this diagnosis as well Recommend contacting her public service director to get back on med Off work note given for 01/20/25 and 01/21/25 Centrilobular emphysema (HCC) Inhalers: trelegy, and albuterol Recommend to quit smoking Relevant Medications Cisfvmxhadj-Foqvdyhwd-Kruuar (Trelegy Ellipta) 100-62.5-25 MCG/ACT aerosol powder Class 1 obesity due to excess calories without serious comorbidity in adult - Primary Discussed with patient their BMI (actual, verses recommended). We have also discussed lifestyle modifications: attempts to perform physical activity as chronic conditions allow, also to monitor dietary intake: increasing protein/fruits/veggies and lowering carb intake (unless contraindicated). Limit sodas, juices, and sugary drinks. Current mild episode of major depressive disorder without prior episode Current med is duloxetine Cigarette nicotine dependence without complication The patient has been advised of the risks of continued smoking: stroke, [place], all forms of cancer, lung disease, and . Options for quitting smoking include: cold turkey, hypnosis, acupuncture, nicotine replacement meds(gum, lozenges, and patches), Buproprion, and Varenicline. At this time pt is encouraged to evaluate their goals for wanting to quit smoking, and reach out toprovider when ready to start this process Other Visit Diagnoses Rheumatoid arthritis, unspecified (HCC) Relevant Medications amitriptyline (Elavil) 25 MG tablet omeprazole (PriLOSEC) [address] capsule Depression, unspecified Relevant Medications DULoxetine (Cymbalta) [address] capsule * Shandra Romero NP - 01/20/2025 7:40 AM EDTAssociated Problem(s): Screening for lung cancer Patient meets requirements for low dose CT scan for lung cancer screening: age 55-80, patient is a current smoker or has quit in the last 15 years. Smoking history is > or equal to 30 pack-year. If needed the patient is able or willing to receive treatment. The patient is not currently exhibiting any s/s of lung cancer. We have discussed the benefits as well as harms of screening, follow up testing if needed, false positive rates. We have also discussed that this type of CT scan has less radiation exposure than a traditional lung CT scan. We have also discussed that it is important to follow with annual screening for this. The patient has also been counseled on the importance of smoking cessation. * Shandra Romero NP - 01/20/2025 7:40 AM EDTAssociated Problem(s): Colon cancer screening Colon cancer screening options were discussed with patient, as well as why colon cancer screening is indicated. Options are Colonoscopy: direct visualization, every 10 years (unless indicated more frequently), risks and benefits were discussed Cologuard: every 3 years, risks and benefits were discussed , contraindications were discussed (family hx of colon cancer, colon polyps) Patient has elected to: * Shandra Romero NP - 01/20/2025 7:39 AM EDTAssociated Problem(s): Cigarette nicotine dependence without complication The patient has been advised of the risks of continued smoking: stroke, IL, all forms of cancer, lung disease, and . Options for quitting smoking include: cold turkey, hypnosis, acupuncture, nicotine replacement meds(gum, lozenges, and patches), Buproprion, and Varenicline. At this time pt is encouraged to evaluate their goals for wanting to quit smoking, and reach out toprovider when ready to start this process * Shandra Romero NP - 01/20/2025 7:35 AM EDTAssociated Problem(s): Rheumatoid arthritis with rheumatoid factor of multiple 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 (HCC) Is under the care of Rheumatology Is taking plaquenil, etodolac arava, currently not taking methorexate Has FMLA for this diagnosis as well Recommend contacting her public service director to get back on med Off work note given for 01/20/25 and 01/21/25 * Shandra Romero NP - 01/20/2025 7:35 AM EDTAssociated Problem(s): Class 1 obesity due to excess calories without serious comorbidity in adult Discussed with patient their BMI (actual, verses recommended). We have also discussed lifestyle modifications: attempts to perform physical activity as chronic conditions allow, also to monitor dietary intake: increasing protein/fruits/veggies and lowering carb intake (unless contraindicated). Limit sodas, juices, and sugary drinks. documented in this encounterSt. Louis VA Medical [id number] History of Present illness Narrative* Shandra Romero NP - 03/25/2024 3:01 PM EDTAssociated Problem(s): Encounter for screening mammogram for malignant neoplasm of breast Has not had her mammogram as of yet, states she did not get a call from [facility] I gave her a copy of order with scheduling number * Shandra Romero NP - 03/25/2024 3:00 PM EDTAssociated Problem(s): Rheumatoid arthritis of multiple sites with negative rheumatoid factor ([facility]) Cont with Rheumatology * Shandra Romero NP - 03/25/2024 3:00 PM EDTAssociated Problem(s): Peritonsillar abscess Sxs have resolved and she is encouraged to have fu with ENT * Shandra Romero NP - 03/25/2024 3:00 PM EDTAssociated Problem(s): Colon cancer screening Still has not got done her cologard, reminded her to do * Shandra Romero NP - 03/25/2024 2:20 PM EDT Images from the original note were not included. Cathie Ortega is a 53 y.o. female presents with chief complaint of No chief complaint on file. HPI: Fu from peritonsilar abscess.. overall she is doing well, no fever, chills, no sore throat. She didnot go see her ENT Her RA: is at baseline as well SUBJECTIVE: MEDICATIONS: Current Outpatient Medications Medication Instructions acetaminophen (Tylenol 8 Hour) 650 MG ER tablet Every 8 hours albuterol HFA 90 mcg/act inhaler 2 puffs, Inhalation, Every 6 hours PRN amitriptyline (ELAVIL) 25 mg, Oral, Nightly atorvastatin (LIPITOR) 40 mg, Oral, Nightly BD Insulin Syringe U/F 31G X 11/01 1 ML misc USE DIRECTED cetirizine (ZYRTEC) [...] father; Learning disabilities in her brother; Mental illnessin her father's sister. OBJECTIVE: Visit Vitals BP [...] she did not get a call from [facility] I gave her a copy of order with scheduling number documented in this encounterSt. Louis VA Medical [id number] History of Present illness Narrative* Shandra Romero NP - 03/07/2024 11:34 AM EDTAssociated Problem(s): Rheumatoid arthritis of multiple sites with negative rheumatoid factor (CMS/H CC) Continue with Rheumatology * Shandra Romero NP - 03/07/2024 11:34 AM EDTAssociated Problem(s): Peritonsillar abscess Finish atb, needs to schedule ENT fu Would like some extended time off of work under her STD, this is likely also related to her underlying RA and immunosupressant therapy Fu in 3 weeks with me Off work from 03/04/24-RTW on 04/01/24 * REHANA WOODALL - 03/07/2024 11:00 AM EDT Pt is having stomach pain, having loose stools since being on atb, fatigue, achy, and sore. Pt alsostates she has had a headache on and off since last week- since having strep throat Cepacol sore mqxjsl-flrkunywpq-akamzme * Shandra Romero NP - 03/07/2024 11:00 AM EDT Images from the original note were not included. Cathie Ortega is a 53 y.o. female presents with chief complaint of No chief complaint on file. HPI: Here for hospital follow up for Peritonsilar abscess. Reviewed [facility] ER notes and [facility]'s notes for HPI as well [...] Nightly BD Insulin Syringe U/F 31G X 11/01 1 ML misc USE DIRECTED cetirizine (ZYRTEC) [...] father; Learning disabilities in her brother; Mental illnessin her father's sister. OBJECTIVE: Visit Vitals BP [...] Orders Bilateral screening mammogram documented in this encounterSt. Louis VA Medical [id number] NotePROCEDURE: XR HIP RT 2 3V WO PELVIS [...] Electronically authenticated by: TODD JACOBS Date: 2022-02-25 17:45[facility]03-30-2022 NoteChief Complaint Referral *Hematuria HPI Staff Evaluation requested [...] Illness Tests reviewed: reviewed UA, CT AP ([facility]), external records I have reviewed the [...] shows large. UA done on 07/01/21 showed 2- 5 RBC. -UA today will be sent for micro UA. High risk per AUA guidelines given > 30 pack years history. Will proceed with full workup. -Will schedule cystoscopy with urine FISH/cytology, pelvic exam. CT Urogram CT AP w/ and wo contrast done on 08/16/21 showed no acute abnormalities, stones, masses, or lesions.However NO delayed phase therefore unable to evaluate urinary system for disease. -Needs CT Urogram done (w/ wo IV contrast, delayed phase) Will schedule pt for CT urogram. The risks and benefits for cystoscopy have been discussed. The risks include bleeding, infection, and irritation of the bladder and urinary channel, among others. The patient, after being informed ofprocedural details and after questions have been answered, wishes to proceed. Full informed consenthas been obtained. Will order Local anesthesia. At the time of the cystoscopy we will send UA for FISH/Cytol. Ordered: CT Urogram 2. Family history of cervical cancer (Z80.49: Family history of malignant neoplasm of other genitalorgans) Pt states her daughter just had a [...] further assistance at this time, is working onit. Ordered: CT Urogram Orders: cephalexin, 500 mg = 1 cap(s), Oral, Daily, Start 1 day prior to procedure, # 2 cap(s), Refills(s) 0, Pharmacy: [facility]/pharmacy #[id number], 170, cm, 09/15/21 8:33:00 EDT, Height/Length Dosing, 93.9, kg, 09/15/21 8:33:00 EDT, Weight Dosing estradiol topical, See Instructions, 42.5 gm, Refill(s) 3, Apply pea sized amount 3x a week for 4 weeks and 2x a week after, [facility]/pharmacy #[id number], 170, cm, 09/15/21 8:33:00 EDT, Height/Length Dosing, 93.9, (more content not included)... [facility] HospitalComment on above:Result Comment: Electronically Signed By: Vickie Montiel MD\.br\Date and Time Signed: 09/15/21 09:35 EDT\.br\Electronically Co-Signed By: Zohra Berg\.br\Date and Time Co- Signed: 09/15/21 09:17 [id number] Hospital Discharge instructions Patient Education 09/15/2021 09:00:40 Hematuria, Adult Hematuria, Adult Hematuria is blood in the urine. Blood may be visible in the urine, or it may be identified with a test. This condition can be caused by infections of the bladder, urethra, kidney, or prostate. Otherpossible causes include: Kidney stones. Cancer of the [...] blood in your urine, even if it ispainless or the blood stops without treatment. Blood in the urine, when it happens and then stops and then happens again, can be a symptom of a very serious condition, including cancer. There is no pain in the initial stages of many urinary cancers. Follow these instructions at home: Medicines Take lyve-huk-dlokuwt and prescription medicines only as told by your health care provider. If you were prescribed an antibiotic medicine, take it as told by your health care provider. Do notstop taking the antibiotic even if you start [...] about any blood in your urine, even ifit is painless or the blood stops without treatment. Take sgoc-sav-lmycabf and prescription medicines only as told by your health care provider. Drink enough fluid to keep your urine clear or pale yellow. This information is not intended to replace advice given to you by your health care provider. Make sure you discuss any questions you have with your health care provider. Document Released: 06/05/2006 Document Revised: 10/30/2019 Document Reviewed: 07/08/2017 [employer] Patient Education 2019 [employer] Follow Up Care 08/23/2021 15:52:47 With:Dinesh SABA, Vickie Archibald URL, URO Address: [address], [place] [address]- [phone] Business (1) When: Unknown [facility] 10-27-2021 Evaluation note* Encounter Date Diagnosis Assessment Notes Treatment Notes Treatment Clinical Notes Mar, Contact with and (blas spected) exposure to other viral communicable diseases (ICD-10 - Z20.828) Mar,Viral upper respiratory illness (ICD-10 - J06.9) Mar,Other Additional time spent conducting pre-visit phone call, screening for symptoms, instructions on social distancing, application and removal of PPE, and cleaning of examination room, equipment and supplies was preformed. Patient education given for testing methodology and results. Patient care instructions given in writting by [facility] Care At Home document. [facility] Other Evaluation + Plan note Future Appointments Appointment Date:09/16/2021 08:30:00 AM Scheduled Provider: Location:[facility] Appointment Type:Urology CALL PAT FT Appointment Date:09/27/2021 09:00:00 AM Scheduled Provider: Location:[facility] Appointment Type:Urology FT [facility] evaluation noteNo assessment information available [facility] Work Phone: Evaluation note* Diagnosis Peritonsillar abscess- Primary Obesity due to excess calories without serious comorbidity, unspecified class Current smoker Colon cancer screening Special screening for malignant neoplasms, colon Rheumatoid arthritis of multiple sites with negative rheumatoid factor (CMS/HCC) Encounter for screening mammogram for malignant neoplasm of breast documented in this encounter [facility] HealthcareEvaluation note* Diagnosis Peritonsillar abscess- Primary Encounter for screening mammogram for malignant neoplasm of breast Immunocompromised state due to drug therapy (CMS/HCC) Rheumatoid arthritis of multiple sites with negative rheumatoid factor (CMS/HCC) documented in this encounter [facility] HealthcareEvaluation note* Diagnosis Chronic nonintractable headache, unspecified headache type- Primary Obesity due to excess calories without serious comorbidity, unspecified classification Colon cancer screening Special screening for malignant neoplasms, colon Depression, unspecified depression type Rheumatoid arthritis of multiple sites with negative rheumatoid factor (HCC) Current smoker- Primary Rheumatoid arthritis, unspecified (HCC) Centrilobular emphysema (HCC) Mixed hyperlipidemia Mixed hyperlipidemia Obesity due to excess calories without serious comorbidity, unspecified classification Colon cancer screening Special screening for malignant neoplasms, colon Chronic nonintractable headache, unspecified headache type Peritonsillar abscess- Primary Obesity due to excess calories without serious comorbidity, unspecified class Current smoker Colon cancer screening Special screening for malignant neoplasms, colon Rheumatoid arthritis of multiple sites with negative rheumatoid factor (HCC) Encounter for screening mammogram for malignant neoplasm of breast Rheumatoid arthritis with rheumatoid factor of multiple 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 (HCC)- Primary Class 1 obesity due to excess calories without serious comorbidity with body mass index (BMI) of 31.0 to 31.9 in adult Cigarette nicotine dependence without complication Colon cancer screening Special screening for malignant neoplasms, colon Rheumatoid arthritis, unspecified (HCC) Chronic nonintractable headache, unspecified headache type Depression, unspecified Current mild episode of major depressive disorder without prior episode Mixed hyperlipidemia Mixed hyperlipidemia Centrilobular emphysema (HCC) documented in this encounter [facility] HealthcareEvaluation note* Diagnosis Onset Date Resolution Status Admit Date Breast cancer screening acuteOctober 2024 5:35pmCigarette nicotine dependence without complication acuteOctober 2024 5:35pmClass 1 obesity due to excess calories without serious comorbidity in adultacuteOctober 2024 5:35pmCurrent mild episode of major depressive disorder without prior episodeacuteOctober 2024 5:35pm HyperlipidemiaacuteOctober 2024 5:35pmRheumatoid arthritis with rheumatoid factor of multiple sites without organacuteOctober 2024 5:35pmScreening for lung canceracuteOct2024 5:35pm [facility] Work Phone: History general Narrative - Reported* Type Description Date Medical History rheumatoid arthritis Medical HistoryOsteoarthritisSurgical HistoryHYSTERECTOMYSurgical History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 as childHospitalization Historysee above [facility] Other Hospital course Narrative No data available for this section [facility] Hospital Discharge instructions No data available for this section [facility] CenterReason for referral (narrative)No reason for referral information availableOhiohealth [facility]ide [facility] Work Phone: Summary Purpose Family History No Family History Records FoundNo Family History Records FoundNo Family History Records FoundNo Family History Records FoundNo Family History Records Found Advance Directives Advance Directive Response Recorded Date/ Time Advance Directives No June 23, 2020 8:10am Chief Complaint and Reason for Visit Chief Complaint M05.79/m15.0/z79.899 Chief Complaint Admit Date annual wellness April 07, 2025 5 :35pm Reason for Visit Admit Date Breast cancer screening April 07 5:35pm Cigarette nicotine dependence without co mplication April 07, 2025 5:35pm Class 1 obesity due to exces s calories without serious comorbidity in adult April 07, 2025 5:35pm Current mild episode of vi r depressive disorder without prior episode April 07, 2025 5:35pm Hyperlipidemia April 07, 2025 5 :35pm Rheumatoid arthritis with rh eumatoid factor of multiple sites without organ April 07, 2025 5:35pm Screening for lung cancer April 07, 2025 5:35pm Additional Source Comments REASON FOR VISIT (unrecogniz ed section and content) ReasonCommentsHospital Follow-upHand swollen INFORMATION SOURCE (unrecogn ized section and content) DATE CREATED AUTHOR 02/01/2022 [facility] DATE CREATED AUTHOR AUTHOR'S ORGANIZ ATION 08/24/[address] [facility] DATE CREATED AUTHOR AUTHOR'S ORGANIZ ATION 12/15/2022 [facility] DATE CREATED AUTHOR AUTHOR'S ORGANIZ ATION 03/10/2024 [facility] DATE CREATED AUTHOR AUTHOR'S ORGANIZ ATION 01/22/2025 [facility] EPIC Care Teams (unrecognized sec tion and content) Team Status: Active Member Role Status Dates Shandra Romero Primary Care Provider Active Team Status: Inactive Member Role Status Dates Shandra Romero Primary Care Provider Active Cecil Taylor MDAttluis ProviderActiveTeam MemberRelationshipSpecialtyStart DateEnd Date Thomas Ortez MD [address] [place] [phone] PCP - GeneralFamily Medicine09/07/23 Shandra Romero NP [address] [place] [address] PCP - [employer] [employer]02/18/24 Shandra Romero NP [address] [place] [address] Nurse PractitionerNSaint [facility]01/03/23 Shandra Romero NP [address] [place] [address] Nurse PractitionerFawrentham developmental center Medicine09/07/23Team MemberRelationshipSpecialtyStart DateEnd Date Thomas Ortez MD [address] [place] [address] PCP - GeneralFamily Medicine09/07/23 Shandra Romero NP [address] [place] [address] PCP - [place] [employer]02/18/24 Shandra Romero NP [address] [place] [address] Nurse PractitionerNurse Practitioner01/03/23 Shandra Romero NP [address] [place] [address] Nurse PractitionerFamily Medicine09/07/23Team MemberRelationshipSpecialtyStart DateEnd Date Thomas Ortez MD [address] [place] [address] [facility] - [facility]09/07/23 Shandra Romero NP [address] [place] [address] Nurse PractitionerNurse Practitioner01/03/23 Shandra Romero NP [address] [place] [address] Nurse PractitionerFavtly Medicine09/07/23Team MemberRelationshipSpecialtyStart DateEnd Date Thomas Ortez MD [address] [place] [address] PCP - GeneralH[facility] Systemly Medicine09/07/23 Shandra Romero NP [address] [place] [address] Nurse PractitionerNurse Practitioner01/03/23 Shandra Romero NP [address] [place] [address] Nurse PractitionerHancock County Health Systemly Medicine09/07/23Team MemberRelationshipSpecialtyStart DateEnd Date Thomas Ortez MD [address] [place] [address] PCP - General acute hospital Medicine09/07/23 Shandra Romero NP [address] [place] [address] Nurse PractitionerNurse Practitioner01/03/23 Shandra Romero NP [address] [place] [address] [facility]Em[facility]09/07/23Team MemberRelationshipSpecialtyStart DateEnd Date Thomas Ortez MD [address] [place] [address] PCP - [facility]09/07/23 Shandra Romero NP [address] [place] [address] Nurse PractitionerNurse Practitioner01/03/23 Shandra Romero NP [address] [place] [address] Nurse PractitionerGuardian Hospital Medicine09/07/23 Team Status: Active Member Role/Relationship Status Dates Shandra Romero NP-Klarissa Primary Care Provider Active Team Status: Inactive Member Role/Relationship Status Dates Shandra Romeor NP-C Primary Care Provider Active Start: April 07, 2025 End: April 07, 2025Shandra Romero NP-Ryanteneliezer ProviderActiveStart: April 07, 2025 End: April 07, 2025Team MemberRelationshipSpecialtyStart DateEnd Date Thomas Ortez MD PCP - [facility]Guard[facility] Medicine09/07/23 Shandra Romero NP [address] [place] [address] PCP - [place] [facility]02/17/2411 Shandra Romero NP Nurse Pract[facility] [place] [facility] [place] Practitioner01/03/23 Shandra Romero NP [facility]09/07/23 Goals (unrecognized section and content) Goals may [...] BE BASED ON THE PRIMARY CLINICAL RECORDS. [facility] [employer] provides no warranty or guarantee of the accuracy or completeness of information in this document.
--- OUTSIDE RECORDS SUMMARY | 2025-05-06 07:11 | XMS_ITS | Clinical Summary ---
Author Organization [facility] Healthcare Address [address] [place] [address] Care Team Providers Care Trim Sawyer Name Role Phone Shandra Romero NP Unavailable [phone] Thomas Ortez MD Primary Care Provider [phone] Shandra Romero NP Unavailable [phone] Allergies No known active allergies Medications MedicationSigDispense QuantityRefillsLast FilledStart DateEnd DateStatus acetaminophen (Tylenol 8 Hour) 650 MG ER tablet every 8 (eight) hoursActive albuterol HFA 90 mcg/act inhaler Inhale 2 puffs every 6 (six) hours if needed for wheezing or shortness of breath Active etodolac (Lodine) 500 MG tablet Take 500 mg by mouth in the morning and 500 mg before bedtime.Active folic acid (Folvite) 1 MG tablet Take 1,000 mcg by mouth Daily08/24/2023ctive hydroxychloroquine (Plaquenil) 200 MG tablet Take 1 tablet by mouth in the morning and 1 tablet before bedtime.Active BD Insulin Syringe U/F 31G X /16 1 ML misc USE KFXMKLFB89/17/2023ctive methotrexate 50 MG/2ML injection INJECT 0.6 MILLILITERS SUBCUTANEOUSLY ONCE A WEEKActive methylPREDNISolone (Medrol Dospak) 4 MG tablets TAKE 6 TABLETS ON DAY 1 DIRECTED ON PACKAGE AND DECREASE BY 1 TAB EACH DAY FOR A TOTAL OF 6 DAYS08/24/2023ctive leflunomide (Arava) 20 MG tablet Take 1 tablet by mouth DailyActive cetirizine (ZyrTEC) 10 MG tablet Take 10 mg by mouth DailyActive chlorzoxazone (Parafon Forte) 500 MG tablet Take 500 mg by mouth every 8 (eight) hours if needed for muscle zkvsyf7307/24/2024 Active ibuprofen 600 MG tablet Take 1 tablet by mouth every 6 (six) hours if ozlldy0707/24/2024tive oxyCODONE-acetaminophen (Percocet) 5-325 MG tablet TAKE 1 TABLET BY MOUTH EVERY 6 HOURS NEEDED FOR PAIN FOR 3 DAYS01/06/2025 Active amitriptyline (Elavil) 25 MG tablet Indications:Rheumatoid arthritis, unspecified (HCC),Chronic nonintractable headache, unspecified headache typeTake 1 tablet (25 mg) by mouth at bedtime 90 tablet 01/20/2025tive atorvastatin (Lipitor) 40 MG tablet Indications:Mixed hyperlipidemiaTake 1 tablet (40 mg) by mouth at bedtime T 90 tablet tive DULoxetine (Cymbalta) [address] capsule Indications:Depression, unspecifiedTake 1 capsule (60 mg) by mouth Daily 90 capsule 5Active omeprazole (PriLOSEC) [address] capsule Indications:Rheumatoid arthritis, unspecified (HCC)Take 1 capsule (20 mg) by mouth Daily 90 capsule tive Ioowokezuco-Qpffkadqu-Wblsvv (Trelegy Ellipta) 100-62.5-25 MCG/ACT aerosol powder Indications:Centrilobular emphysema (HCC)Inhale 1 puff 1 (one) time each day at the same time Rinse mouth after use 3 each 5Active Active Problems ProblemNoted DateDiagnosed EtiwMcovs-7-cnlbtexnrzp deficiency btxgobg2201/20/2025 Cigarette nicotine dependence without oofcujccfhnr09/04/2025 Assessment & Plan (01/20/2025 7:39 AM EDT): The patient has been advised of the risks of continued smoking: stroke, MT, all forms of cancer, lung disease, and . Options for quitting smoking include: cold turkey, hypnosis, acupuncture, nicotine replacement meds(gum, lozenges, and patches), Buproprion, and Varenicline. At this time pt is encouraged to evaluate their goals for wanting to quit smoking, and reach out toprovider when ready to start this process Screening for lung qqcvxd8501/20/2025 Assessment & Plan (01/20/2025 7:40 AM EDT): Patient meets requirements for low dose CT [...] counseled on the importance of smoking cessation. 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 to get back on med Off work note given for 01/20/25 and 01/21/25 Assessment & Plan (06/26/2024 6:16 AM EST): Is under the care of Rheumatology Is taking plaquenil, etodolac arava, methorexate Has FMLA for this diagnosis as well Centrilobular /08/2025 Assessment & Plan (01/20/2025 4:42 PM EDT): Inhalers: trelegy, and albuterol Recommend to quit smoking Assessment & Plan (06/26/2024 6:16 AM EST): Inhalers: trelegy, and albuterol Recommend to quit smoking Class 1 obesity due to excess calories without serious comorbidity in adult 06/26/2024 Assessment & Plan (01/20/2025 7:35 AM EDT): Discussed with patient their BMI (actual, verses recommended). We have also discussed lifestyle modifications: attempts to perform physical activity as chronic conditions allow, also to monitor dietary intake: increasing protein/fruits/veggies and lowering carb intake (unless contraindicated). Limit sodas, juices, and sugary drinks. Assessment & Plan (06/26/2024 6:14 AM EST): Discussed with patient their BMI (actual, verses recommended). We have also discussed lifestyle modifications: attempts to perform physical activity as chronic conditions allow, also to monitor dietary intake: increasing protein/fruits/veggies and lowering carb intake (unless contraindicated). Limit sodas, juices, and sugary drinks. Current mild episode of major depressive disorder without prior episode 06/26/2024 Assessment & Plan (01/20/2025 4:32 PM EDT): Current med is duloxetine Assessment & Plan (06/26/2024 6:15 AM EST): Current med is duloxetine Encounter for wellness zveielmypca55/08/2025 Assessment & Plan (06/26/2024 6:18 AM EST): Reviewed Ht/Wt/BMI Recommend eye exam yearly Recommend dental exams twice a year Balance work/leisure activities Exercises is recommended most days of the week (appropriate as chronic conditions allow) Follow up yearly and prn Encounter for screening mammogram for malignant neoplasm of ynroza0303/07/2024 Assessment & Plan (03/25/2024 3:01 PM EDT): Has not had her mammogram as of yet, states she did not get a call from [facility] I gave her a copy of order with scheduling number Lqfeftbimtsq62/15/2024Immunocompromised state due to drug mqhptfr4403/02/2024 Assessment & Plan (06/26/2024 6:14 AM EST): Meets this criteria for RA meds Cont with rheumatology Tbyqjymjdkkx19/24/3702Jcyysfgvrxaagf65/24/2024Family history of malignant neoplasm of lnocaf1212/11/2023symptomatic microscopic jojqubybk04/24/2024Headache 09/07/2023 Assessment & Plan (12/11/2023 4:33 PM EDT): Will increase elavil to 25mg Fu in 3 months May also help with chronic pain Assessment & Plan (09/07/2023 1:30 PM EDT): Hx migraines, does not seem like this, wonders if stress related, no stroke type symptoms Colon cancer uqfsfeyzw22/21/2024 Assessment & Plan (01/20/2025 7:40 AM EDT): Colon cancer screening options were discussed with patient, as well as why colon cancer screening is indicated. Options are Colonoscopy: direct visualization, every 10 years (unless indicated more frequently), risks and benefits were discussed Cologuard: every 3 years, risks and benefits were discussed , contraindications were discussed (family hx of colon cancer, colon polyps) Patient has elected to: Assessment & Plan (03/25/2024 3:00 PM EDT): Still has not got done her cologard, reminded her to do Assessment & Plan (12/11/2023 4:32 PM EDT): Discussed need for cologuard Resolved Problems ProblemNoted DateDiagnosed DateResolved DatePeritonsillar ksjtsjv1803/04/2024 06/26/2024 Assessment & Plan (03/25/2024 3:00 PM EDT): Sxs have resolved and she is encouraged to have fu with ENT Assessment & Plan (03/07/2024 11:35 AM EDT): Finish atb, needs to schedule ENT fu Would like some extended time off of work under her STD, this is likely also related to her underlying RA and immunosupressant therapy Fu in 3 weeks with me Off work from 03/04/24-RTW on 04/01/24 Current ztcoka30 Assessment & Plan (06/26/2024 6:14 AM EST): The patient has been advised of the risks of continued smoking: stroke, MT, all forms of cancer, lung disease, and . Options for quitting smoking include: cold turkey, hypnosis, acupuncture, nicotine replacement meds(gum, lozenges, and patches), Buproprion, and Varenicline. At this time pt is encouraged to evaluate their goals for wanting to quit smoking, and reach out toprovider when ready to start this process Assessment & Plan (12/11/2023 4:32 PM EDT): The patient has been advised of the risks of continued smoking: stroke, MT, all forms of cancer, lung disease, and . Options for quitting smoking include: cold turkey, hypnosis, acupuncture, nicotine replacement meds(gum, lozenges, and patches), Buproprion, and Varenicline. At this time pt is encouraged to evaluate their goals for wanting to quit smoking, and reach out toprovider when ready to start this process Obesity, jfdpmzsbsip06Rheumatoid arthritis of multiple sites with negative rheumatoid lmaeqj56 Assessment & Plan (03/25/2024 3:00 PM EDT): Cont with Rheumatology Assessment & Plan (03/07/2024 11:34 AM EDT): Continue with Rheumatology Assessment & Plan (12/11/2023 4:32 PM EDT): Continue with rheumatology Off work note given for 1 week Assessment & Plan (09/07/2023 1:42 PM EDT): Continue with rheumatology Depression, zgehctzmufj24 Immunizations ImmunizationAdministration DatesNext DueHep B, adult04/12/2019Tdap1 Family History Medical HistoryRelationNameCommentsLearning disabilitiesBrotherCurtis GibbsDrug abuseDaughterKatlyn HowardAlcohol abuseFatherRoy GibbsDiabetesFatherRoy Jones HypertensionFatherRoy GibbsMental illnessFather's SisterRuth HensleyArthritis MotherKathy KirbyCOPDMotherKathy KirbyDepressionMotherKathy KirbyHeart disease Paternal GrandfatherRoy GibbsRelationNameStatusCommentsBrotherCurtis Jones DaughterKatlyn HowardFatherRoy GibbsFather's SisterRuth HensleyMotherKathy Breaux Paternal GrandfatherRoy Jones Social History Tobacco UseTypesPacks/DayYears UsedDateSmoking Tobacco: Every MsbTotuimdcup657 Smokeless Tobacco: CurrentAlcohol UseStandard Drinks/WeekCommentsYes1 (1 standard drink = 0.6 oz pure alcohol)Couple times a axoapO1352 Health Literacy AnswerDate RecordedHow often do you need to have someone help you when you read instructions, pamphlets, or other written material from your doctor or pharmacy? Lifqbufyu09/04/2025Humiliation, Afraid, Rape, and Kick questionnaireAnswerDate RecordedWithin the last year, have you been afraid of your partner or ex-partner?No01/20/2025Within the last year, have you been humiliated or emotionally abused in other ways by your partner or ex-partner?No01/20/2025 Within the last year, have you been kicked, hit, slapped, or otherwise physically hurt by your partner or ex-partner?No01/20/2025Within the last year, have you been raped or forced to have any kind of sexual activity by your part ner or ex-partner?No01/20/2025Social Connection and Isolation PanelAnswerDate RecordedIn a typical week, how many times do you talk on the phone with family, friends, or neighbors?Once a week01/20/2025How often do you get together with friends or relatives?Once a week01/20/2025How often do you attend mormon or church services?Never01/20/2025Do you belong to any clubs or organizations such as mormon groups, unions, fraternal or athletic groups, or school groups?No 01/20/2025How often do you attend meetings of the clubs or organizations you belong to?Never01/20/2025re you , , , , never , or living with a partner?Utrsphkp20/04/2025UDIT-CAnswerDate Recorded Q1: How often do you have a drink containing alcohol?2-4 times a month01/20/2025 Q2: How many drinks containing alcohol do you have on a typical day when you are drinking?3 or Q3: How often do you have six or more drinks on one occasion?Never01/20/2025Overall Financial Resource Strain (CARDIA)AnswerDate RecordedHow hard is it for you to pay for the very basics like food, housing, medical care, and heating?Hard01/20/2025PHQ-2AnswerDate RecordedPatient Health Questionnaire-2 Cppoe966[facility] [place] of Occupational Health - Occupational Stress QuestionnaireAnswerDate RecordedDo you feel stress - tense, restless, nervous, or anxious, or unable to sleep at night because yourmind is troubled all the time - these days?Very much01/20/2025Exercise Vital SignAnswer Date RecordedOn average, how many days per week do you engage in moderate to strenuous exercise (like a brisk walk)?4 days01/20/2025On average, how many minutes do you engage in exercise at this level?10 min01/20/2025Hunger Vital SignAnswerDate RecordedWithin the past 12 months, you worried that your food would run out before you got the money to buymore.Sometimes true01/20/2025Within the past 12 months, the food you bought just didn't last and you didn't have money to get more.Sometimes true01/20/2025PRAPARE - TransportationAnswerDate RecordedIn the past 12 months, has lack of transportation kept you from medical appointments or from getting medications?No01/20/2025In the past 12 months, has lack of transportation kept you from meetings, work, or from getting things needed for daily living?No01/20/2025Housing Stability Vital SignAnswerDate RecordedIn the last 12 months, was there a time when you were not able to pay the mortgage or rent on time?Yes09/07/2023In the last 12 months, how many places have you lived?In the last 12 months, was there a time when you did not have a steady place to sleep or slept in ashelter (including now)?No 09/07/2023Housing Stability Vital SignAnswerDate RecordedIn the last 12 months, was there a time when you were not able to pay the mortgage or rent on time?No 01/20/2025Number of Times Moved in the Last YearNot on file01/20/2025t any time in the past 12 months, were you homeless or living in a [place] (including now)? No01/20/2025CommentsUnknownSex and Gender InformationValueDate Recorded Sex Assigned at BirthNot on fileLegal PavNxlhbj06/15/2023 6:41 PM EDTGender IdentityNot on fileSexual OrientationNot on file Last Filed Vital Signs Vital SignReadingTime TakenCommentsBlood Wuapwlsj022/7808 4:06 PM EDT Jsqgl110201/20/2025 4:06 PM PXKAjkjbxwqjxf93.6 ??C (97.8 ??F)01/20/2025 4:06 PM EDTRespiratory Ceey1010 4:06 PM EDTOxygen Xynqqtsfbq06%01/20/2025 4:06 PM EDTInhaled Oxygen Concentration--Dloonu67 kg (191 lb 12.8 oz)01/20/2025 4:06 PM GDOWlmoyt831.2 cm (5' 7 )03/25/2024 2:39 PM EDTBody Mass Index30.041 2:39 PM EDT Plan of Treatment Not on file Insurance Care Teams Team MemberRelationshipSpecialtyStart DateEnd Date Thomas Ortez MD [facility] Shandra Romero NP Nurse Pract[facility] [place] Pract[facility]01/03/23 Shandra Romero NP [facility]09/07/23
--- OUTSIDE RECORDS SUMMARY | 2025-05-06 07:12 | XMS_ITS | Clinical Summary ---
Author Organization [facility] Address [address] [place] [address], [address] [place] [address] Care Team Providers Care Bread Wrapper Operator Name Role Phone Unavailable Primary Care Provider Unavailabl e Allergies No known active allergies Medications MedicationSigDispense QuantityRefillsLast FilledStart DateEnd DateStatus METHOTREXATE SODIUM IJ Inject 0.5 mg into the muscle once a week On SundaysActive hydroxychloroquine (PLAQUENIL) 200 MG tablet Take 1 tablet by mouth 2 times dailyActive DULoxetine (CYMBALTA) 60 MG extended release capsule Take 1 capsule by mouth dailyActive etodolac (LODINE) 500 MG tablet Take 1 tablet by mouth 2 times dailyActive leflunomide (ARAVA) 20 MG tablet Take 1 tablet by mouth dailyActive cetirizine (ZYRTEC) 10 MG tablet Take 1 tablet by mouth as needed for AllergiesActive folic acid (FOLVITE) 1 MG tablet Take 1 tablet by mouth dailyActive benzocaine-menthol (CEPACOL SORE THROAT) 15-3.6 MG lozenge Take 1 lozenge by mouth every 2 hours as needed for Sore Xtuacw8903/03/2024ctive Active Problems ProblemNoted DateDiagnosed LfyzRzvbfioekgkv97/15/2024heumatoid arthritis 03/03/20244469Hipmzmuiss66/15/5983Deubtnikgmzajv48/15/2024eritonsillar abscess 03/02/2024Immunocompromised state due to drug stoazdx2803/02/2024 Social History Tobacco UseTypesPacks/DayYears UsedDateSmoking Tobacco: Every BssWwectghofl441.9 Started: 1982Smokeless Tobacco: Never Tobacco Cessation:Ready to Q uit: Not Asked; Counseling Given: Not Answered Alcohol UseStandard Drinks/WeekCommentsYes0 (1 standard drink = 0.6 oz pure alcohol)SOCIALAHC UtilitiesAnswerDate RecordedIn the past 12 months has the electric, gas, oil, or water company threatened to shut off services in your home?No03/02/2024Hunger Vital SignAnswerDate RecordedWithin the past 12 months, you worried that your food would run out before you got the money to buymore. Never true03/02/2024Within the past 12 months, the food you bought just didn't last and you didn't have money to get more.Never true03/02/2024RAPARE - TransportationAnswerDate RecordedIn the past 12 months, has lack of transportation kept you from medical appointments or from getting medications?No 03/02/2024In the past 12 months, has lack of transportation kept you from meetings, work, or from getting things needed for daily living?No03/02/2024 Housing Stability Vital SignAnswerDate RecordedIn the last 12 months, was there a time when you were not able to pay the mortgage or rent on time?No03/02/2024In the past 12 months, how many times have you moved where you were living?1 03/02/2024t any time in the past 12 months, were you homeless or living in a care home (including now)?No03/02/2024Food InsecurityAnswerDate RecordedWithin the past 12 months, you worried that your food would run out before you got the money to buymore.Within the past 12 months, the food you bought just didn't last and you didn't have money to get more.Interpersonal Safety Domain Source: IP Abuse ScreeningAnswerDate RecordedPhysical abuseDenies 03/02/2024Verbal yqxdqApjgmi84/14/2024Emotional tbqywZtiryw95/14/2024Financial pmxgsJsinit66/14/2024Sexual zmmzgEvcrlw36/14/2024CommentsUnknownSex and Gender InformationValueDate RecordedSex Assigned at BirthNot on fileLegal Sex Zwhapc2503/02/2024 6:20 PM EDTGender IdentityNot on fileSexual OrientationNot on file Last Filed Vital Signs Vital SignReadingTime TakenCommentsBlood Robjzcfs79/7209/ 7:55 AM EDT Xdeui172903/03/2024 7:55 AM VQSSzfxsdrkagw42.7 ??C (98 ??F)03/03/2024 7:55 AM EDT Respiratory Amlg835103/03/2024 7:55 AM EDTOxygen Xrzzylmqlh95%03/03/2024 7:55 AM EDTInhaled Oxygen Concentration--Hbxplh21.9 kg (207 lb)03/03/2024 4:51 AM EDT Adayab714.2 cm (5' 7 )03/02/2024 10:30 PM EDTBody Mass Index32.42003/02/2024 10:30 PM EDT Plan of Treatment Health MaintenanceDue DateLast DoneCommentsCOVID-19 Vaccine (#1)1977 DTaP/Tdap/Td vaccine (1 - Tdap)1991Flu vaccine (#1)01/17/2025Polio vaccine Aged OutNo longer eligible based on patient's age to complete this topic Insurance Advance Directives * Full Code (Latest Code Status on File) Date ActivatedDate InactivatedComments03/02/2024 10:43 PM03/03/2024 4:09 PM
[2025-05-06 07:18] VITALS: BP 119/77; PULSE 91; TEMP 36.7; O2SAT 100; BMI 30.5
--- NOTE | 2025-05-06 07:37 | CT_ITS ---
The [address] [address] Patient Name: MONET ORTEGA MRN: [id number] date: 1970 Sex: F Assigned Patient Location: ER Current Patient Location: Accession/Order Number: [id number] Exam Date: 05/06/2025 07:51 Report Date: 05/06/2025 08:20 At the request of: ELLEN JANG MD Procedure: CT cervical spine wo con CT CERVICAL SPINE WITHOUT CONTRAST WITH 3D RECONSTRUCTIONS: CLINICAL HISTORY: Right shoulder and arm pain for the past week. No injury. COMPARISON: 03/02/2024 TECHNIQUE: Spiral axial unenhanced images were obtained through the cervical spine. Sagittal, coronal and 3D volume-rendered reconstructions were also reviewed. This CT exam was performed using one or more following dose reduction techniques: Automated exposure control, adjustment of the mA and/or kV according to patient size, or use of iterative reconstruction technique. FINDINGS: Alignment is maintained in the sagittal plane. No acute fractures are identified. There is continued disc space narrowing at C6-7 where there is also endplate spurring and facet disease. Mild thecal sac effacement is present. There is moderate to severe bilateral foraminal impingement, right worse than left. There is additional mild endplate spurring and facet disease. At C3-4, there is also moderate left foraminal encroachment. The atlantoaxial relationship is maintained and there is additional mild degenerative change involving the odontoid and anterior C1 arch.. No prevertebral soft tissue swelling is seen. There is mucosal thickening at the sphenoid sinus. Small shotty cervical lymph nodes are present. The upper imaged lungs show minimal scarring. CT/CT cervical spine wo con IMPRESSION: NO ACUTE BONY FINDINGS. THERE ARE DEGENERATIVE CHANGES, GREATEST AT C6-7. Impression dictated by: Анна Brink M.D. 05/06/2025 8:20 AM Dictation Location: [place] [address] Electronically authenticated by: [id number] Y Date: 05/06/2025 08:20
--- NOTE | 2025-05-06 07:37 | XR_ITS ---
The [address] [address] Patient Name: MONET ORTEGA MRN: [id number] date: 1970 Sex: F Assigned Patient Location: ER Current Patient Location: Accession/Order Number: [id number] Exam Date: 05/06/2025 07:55 Report Date: 05/06/2025 08:23 At the request of: ELLEN JANG MD Procedure: XR shoulder RT min 2V RIGHT SHOULDER - 3 views CLINICAL HISTORY: Atraumatic right shoulder pain COMPARISON: None AP, Y and Grashey views were obtained. There is no acute fracture or dislocation. Minor degenerative change is visualized at the acromioclavicular and inferior glenohumeral joints as well as the greater tuberosity. There are no significant soft tissue abnormalities. XR/XR shoulder RT min 2V IMPRESSION: MINOR DEGENERATIVE CHANGE. NO ACUTE BONY FINDINGS. Impression dictated by: Анна Brink M.D. 05/06/2025 8:23 AM Dictation Location: [place] [address] Electronically authenticated by: [id number] Y Date: 05/06/2025 08:23
--- NOTE | 2025-05-06 07:37 | ED.GENADUL1 ---
HPI HPI - General Adult General Chief complaint: Extremity Injury, Upper Stated complaint: UPPER EXTREMITY PAIN Time Seen by Provider: 05/06/25 07:32 Source: patient Mode of arrival: walk-in History of Present Illness HPI narrative: 54-year-old female presented to the emergency department for right arm pain. She gives no history of injury and it is in her right shoulder and goes down towards her elbow. She was having some forearm pain a week or 2 ago but that went away. Her neck has been hurting as well. No injury. Related Data Home Medications ?Medication ?Instructions ?Recorded ?Confirmed amitriptyline 25 mg tablet 25 mg PO QPM 02/02/24 05/06/25 duloxetine 60 mg capsule,delayed 60 mg PO DAILY 02/02/24 05/06/25 release etodolac 500 mg tablet 500 mg PO BID 02/02/24 05/06/25 folic acid 1 mg tablet 1 mg PO DAILY 02/02/24 05/06/25 hydroxychloroquine 200 mg tablet 200 mg PO BID 02/02/24 05/06/25 omeprazole 20 mg capsule,delayed 20 mg PO DAILY 02/02/24 05/06/25 release atorvastatin 40 mg tablet 40 mg PO .QHS 05/06/25 05/06/25 chlorzoxazone 500 mg tablet 500 mg PO Q8H PRN muscle spasm 05/06/25 05/06/25 fluticasone fur. 100 mcg-umeclid 1 inh inhalation DAILY 05/06/25 05/06/25 62.5 mcg-vilant 25 mcg inhalat.powder (Trelegy Ellipta) Previous Rx's ?Medication ?Instructions ?Recorded hydrocodone 5 mg-acetaminophen 325 1 tab PO Q6H PRN pain 5 days #20 05/06/25 mg tablet tabs prednisone 10 mg tablet See Rx Instructions .Route 05/06/25 .COMPLEX #30 tabs Allergies Allergy/AdvReac Type Severity Reaction Status Date / Time No Known Drug Allergies Allergy Verified 05/06/25 07:15 Opioid HPI Opioid Management Most Recent Opioid Data: Last Pain Scale 9 Today, 07:26 Review of Systems ROS Narrative A ten point review of systems is negative except as noted above. PFSH PFS Medical History (Updated 05/06/25 @ 08:44 by Nolan Carver MD) High cholesterol ?E78.00 - Pure hypercholesterolemia, unspecified (ICD-10) Depression ?F32.A - Depression, unspecified (ICD-10) Surgical History (Updated 03/02/24 @ 17:26 by Ladonna Najera) H/O: hysterectomy ?Z90.710 - Acquired absence of both cervix and uterus (ICD-10) Social History Little interest or pleasure in doing things: not at all Feeling down, depressed, or hopeless: not at all Exam Narrative Exam Narrative: Nurses note and vital signs reviewed General:The patient appears uncomfortable. She is sitting upright on the cart. Skin:Warm, dry, no pallor noted.There is no rash noted. Head:Normocephalic, atraumatic Eye: Normal conjunctiva, no drainage Ears, Nose, Mouth, and Throat: oral mucosa is moist. Nares patent. Cardiovascular:Regular Rate and Rhythm Respiratory:Patient is in no distress, no accessory muscle use, lungs are clear to auscultation, no wheezing, rales or rhonchi Back:non-tender GI: Soft and nontender Musculoskeletal: Her neck and her right arm are examined. There is no bruise or rash or swelling. Her shoulder elbow and wrist have full range of motion. Radial pulse 2+. Neurological:A&O, normal speech Psychiatric:Cooperative Constitutional Vital Signs, click to edit/add: Last Vital Signs Temp 98.0 F 05/06/25 07:18 Pulse 91 H 05/06/25 07:18 Resp 16 05/06/25 07:18 BP 119/77 05/06/25 07:18 Pulse Ox 100 05/06/25 07:18 O2 Del Method Room Air 05/06/25 07:18 Course Vital Signs Vital signs: Vital Signs Temperature 98.0 F 05/06/25 07:18 Pulse Rate 91 H 05/06/25 07:18 Respiratory Rate 16 05/06/25 07:18 Blood Pressure 119/77 05/06/25 07:18 Pulse Oximetry 100 05/06/25 07:18 Oxygen Delivery Method Room Air 05/06/25 07:18 Temperature 98.0 F 05/06/25 07:18 Pulse Rate 91 H 05/06/25 07:18 Respiratory Rate 16 05/06/25 07:18 Blood Pressure 119/77 05/06/25 07:18 Pulse Oximetry 100 05/06/25 07:18 Oxygen Delivery Method Room Air 05/06/25 07:18 Medical Decision Making MDM Narrative Medical decision making narrative: CT and x-ray findings are discussed with the patient and she is placed on [place] and prednisone and she will follow-up with her doctor. Treatment diagnosis and follow-up were discussed with the patient. Differential Diagnosis Differential Diagnosis: Shoulder sprain, cervical radiculopathy, herniated disc Imaging Data CT C-spine, right shoulder x-ray: Radiologist's impression: ITS Impressions Cervical Spine CT 05/06/25 07:37 IMPRESSION: NO ACUTE BONY FINDINGS. THERE ARE DEGENERATIVE CHANGES, GREATEST AT C6-7. Impression dictated by: Анна Brink M.D. 05/06/2025 8:20 AM Dictation Location: [place] Electronically authenticated by: [id number] Y Date: 05/06/2025 08:20 Shoulder X-Ray 05/06/25 07:37 IMPRESSION: MINOR DEGENERATIVE CHANGE. NO ACUTE BONY FINDINGS. Impression dictated by: Анна Brink M.D. 05/06/2025 8:23 AM Dictation Location: [place] Electronically authenticated by: [id number] Y Date: 05/06/2025 08:23 Discharge Plan Discharge Chief Complaint: Extremity Injury, Upper Clinical Impression: Cervical radiculopathy Patient Disposition: Home, Self-Care Time of Disposition Decision: 08:44 Condition: Good Mode of Transportation: Private Vehicle Prescriptions / Home Meds: New hydrocodone-acetaminophen 5-325 mg tablet 1 tab PO Q6H PRN (Reason: pain) 5 Days Qty: 20 0RF prednisone 10 mg tablet See Rx Instructions .ROUTE .COMPLEX Qty: 30 0RF Rx Instructions: 4 by mouth daily for three days then 3 by mouth daily for three days then 2 by mouth daily for three days then 1 by mouth daily for three days No Action atorvastatin 40 mg tablet 40 mg PO .QHS chlorzoxazone 500 mg tablet 500 mg PO Q8H PRN (Reason: muscle spasm) Trelegy Ellipta 100-62.5-25 mcg blister with device 1 inh inhalation DAILY amitriptyline 25 mg tablet 25 mg PO QPM duloxetine 60 mg capsule,delayed release(DR/EC) 60 mg PO DAILY etodolac 500 mg tablet 500 mg PO BID folic acid 1 mg tablet 1 mg PO DAILY hydroxychloroquine 200 mg tablet 200 mg PO BID omeprazole 20 mg capsule,delayed release(DR/EC) 20 mg PO DAILY Print Language: Azeri Instructions: Cervical Radiculopathy (ED) Referrals: Shandra Romero ROOM MANAGER [Primary Care Provider, Family Practice] - 1 week
== END 2025-05-06 09:17 | disposition home or self-care (01) ==
PROVIDERS: Emergency Provider Emergency Medicine; PCP Nurse Practitioner
DX: M54.12 Radiculopathy, cervical region (principal)
CPT/HCPCS: 72125; 73030; 76376; 99284